=== PATIENT | male | born 1965 | race Caucasian/White ===

== ENCOUNTER 2016-03-23 23:26 | Emergency (ER) | payer OTHER, MEDICAID ==
[2016-03-23] MEDS ORDERED: LORazepam 2 MG/ML INJ IVP ONE (23:57)
[2016-03-24] MEDS ORDERED: chlordiazePOXIDE 25 MG CAP PO ONE (00:38)
--- NOTE | 2016-03-24 00:38 | EDPHY ---
H & P Stated Complaint: UNABLE TO AMBULATE FROM [facility] Time Seen by Provider: 03/23/16 23:35 HPI/ROS: HPI The patient presents with concern for alcohol withdrawal from the [facility]. The patient was seen at [facility] Emergency room earlier today and was transferred to the [facility] for alcohol detox. When he arrived at the [facility], he was having difficulty with ambulation and he is transferred here for further care by EMS he says that he feels tremulous currently, though is not confused or anxious. His last drink was about 24 hours ago, 1 pt of hard alcohol. He has multiple visits for alcohol and benzodiazepine withdrawal here including seizures.. REVIEW OF SYSTEMS Constitutional: No fever, no chills. Eyes: No discharge. ENT: No sore throat. Cardiovascular: No chest pain, no palpitations. Respiratory: No cough, no shortness of breath. Gastrointestinal: No abdominal pain, no vomiting. Genitourinary: No hematuria. Musculoskeletal: No back pain. Skin: No rashes. Neurological: No headache. PMHx: Alcohol abuse, benzodiazepine abuse Soc Hx: Marginally housed PHYSICAL General Appearance: Alert, no distress Eyes: Pupils equal and round no pallor or injection ENT, Mouth: Mucous membranes moist Respiratory: There are no retractions, lungs are clear to auscultation Cardiovascular: Tachycardic with regular rhythm Gastrointestinal: Abdomen is soft and non-tender, no masses, bowel sounds normal Neurological: A&O, moves all extremities, hand tremor and tongue lag present Skin: Warm and dry, no rashes Musculoskeletal: Neck is supple non tender Extremities: symmetrical, full range of motion Psychiatric: Patient is oriented X 3, there is no agitation Source: Patient, EMS - Personal History Current Tetanus Diphtheria and Acellular Pertussis (TDAP): Yes Tetanus Vaccine Date: 2010 - Medical/Surgical History Hx Asthma: No Hx Chronic Respiratory Disease: No Hx Diabetes: No Hx Cardiac Disease: No Hx Renal Disease: No Hx Cirrhosis: No Hx Alcoholism: No Hx HIV/AIDS: No Hx Splenectomy or Spleen Trauma: No Other PMH: PMH: htn, depression/anxiety,chronic back pain. [id number], rolanda,left knee,gastric bypass - Social History Smoking Status: Current every day smoker Constitutional: Initial Vital Signs Temperature (C) 36.7 C 03/23/16 23:32 Heart Rate 118 H 03/23/16 23:32 Respiratory Rate 18 03/23/16 23:32 Blood Pressure 169/96 H 03/23/16 23:32 O2 Sat (%) 92 03/23/16 23:32 O2 Delivery Mode Room Air Allergies/Adverse Reactions: gabapentin Allergy (Verified 03/23/16 23:31) bee stings Allergy (Severe, Uncoded 03/23/16 23:31) Anaphylaxis Home Medications: Medication Instructions Recorded Acetaminophen [Tylenol 325mg (*)] 325 mg PO DAILY PRN 01/25/16 Prazosin HCl [Minipress 1mg (*)] 2 mg PO HS #30 cap 01/28/16 QUEtiapine FUMARATE [Seroquel 50 50 mg PO HS #30 tab 01/28/16 mg (*)] Venlafaxine Xr [Effexor Xr 75MG 75 mg PO DAILY #30 cap 01/28/16 (*)] clonazePAM [klonoPIN (*)] 1 mg PO TID #90 tab 01/28/16 morphINE IR [morphINE IR 30 mg (*)] 30 mg PO TID PRN #60 tab 01/28/16 Albuterol 03/23/16 Lisinopril 03/23/16 Medical Decision Making ED Course/Re-evaluation: 5:30 a.m.- The patient has received several doses of Ativan while in the emergency room for tremor in tachycardia. His symptoms have now mostly resolved and he is feeling better. He has been able to walk to the bathroom without much difficulty. His heart rate is now about 100. He will be [facility] with [facility] Librium. Differential Diagnosis: This is a 50-year-old male, well known to this emergency room with chronic alcohol abuse and benzodiazepine abuse with history of alcohol withdrawal seizures who presents from the [facility] with ataxia, likely related to benzodiazepine or alcohol use. On exam here, he appears to be in alcohol withdrawal, he is mildly tachycardic with a hand tremor. Differential diagnosis includes alcohol withdrawal, benzodiazepine withdrawal, alcohol intoxication. Plan to monitor here, administer IV fluids and benzodiazepines as needed for presumed alcohol withdrawal. - Data Points Laboratory Results: Laboratory Results 03/24/16 00:00 03/24/16 00:00 03/24/16 00:00 WBC 9.03 10^3/uL (3.80-9.50) RBC 5.22 10^6/uL (4.40-6.38) Hgb 14.3 g/dL (13.7-17.5) Hct 43.4 % (40.0-51.0) MCV 83.1 fL (81.5-99.8) MCH 27.4 L pg (27.9-34.1) MCHC 32.9 g/dL (32.4-36.7) RDW 16.4 H % (11.5-15.2) Plt Count 123 L 10^3/uL (150-400) MPV 11.1 fL (8.7-11.7) Neut % (Auto) 84.7 H % (39.3-74.2) Lymph % (Auto) 8.4 L % (15.0-45.0) [place] % (Auto) 6.6 % (4.5-13.0) Eos % (Auto) 0.0 L % (0.6-7.6) Baso % (Auto) 0.2 L % (0.3-1.7) Nucleat RBC Rel Count 0.0 % (0.0-0.2) Absolute Neuts (auto) 7.64 H 10^3/uL (1.70-6.50) Absolute Lymphs (auto) 0.76 L 10^3/uL (1.00-3.00) Absolute Monos (auto) 0.60 10^3/uL (0.30-0.80) Absolute Eos (auto) 0.00 L 10^3/uL (0.03-0.40) Absolute Basos (auto) 0.02 10^3/uL (0.02-0.10) Absolute Nucleated RBC 0.00 10^3/uL (0-0.01) Immature Gran % 0.1 % (0.0-1.1) Immature Gran # 0.01 10^3/uL (0.00-0.10) Sodium 136 mEq/L (134-144) Potassium 4.6 mEq/L (3.5-5.2) Chloride 102 mEq/L (97-110) Carbon Dioxide 17 L mEq/l (22-31) Anion Gap 17 H mEq/L (8-16) BUN 29 H mg/dL (7-23) Creatinine 0.8 mg/dL (0.7-1.3) Estimated GFR > 60 Glucose 110 H mg/dL (70-100) Calcium 8.3 L mg/dL (8.5-10.4) Total Bilirubin 2.4 H mg/dL (0.1-1.4) Conjugated Bilirubin 0.7 H mg/dL (0.0-0.5) Unconjugated Bilirubin 1.7 H mg/dL (0.0-1.1) AST 72 H IU/L (17-59) ALT 50 IU/L (21-72) Alkaline Phosphatase 111 IU/L (38-126) Total Protein 6.6 g/dL (6.3-8.2) Albumin 3.9 g/dL (3.5-5.0) Lipase 137.0 IU/L (23-300) Medications Given: Discontinued Medications Acetaminophen (Tylenol) 650 mg PO EDNOW ONE Stop: 03/24/16 04:04 Last Admin: 03/24/16 04:29 Dose: 650 mg Chlordiazepoxide HCl (Librium) 25 mg PO EDNOW ONE Stop: 03/24/16 00:39 Last Admin: 03/24/16 00:41 Dose: Not Given Folic Acid (Folic Acid) 1 mg PO EDNOW ONE Stop: 03/24/16 02:11 Last Admin: 03/24/16 02:19 Dose: 1 mg Lorazepam (Ativan Injection) 1 mg IVP EDNOW ONE Stop: 03/23/16 23:58 Last Admin: 03/24/16 00:09 Dose: 1 mg Lorazepam (Ativan Injection) 1 mg IVP EDNOW ONE Stop: 03/24/16 00:42 Last Admin: 03/24/16 00:45 Dose: 1 mg Lorazepam (Ativan Injection) 1 mg IVP EDNOW ONE Stop: 03/24/16 01:20 Last Admin: 03/24/16 01:27 Dose: 1 mg Lorazepam (Ativan Injection) 1 mg IVP ONCE ONE Stop: 03/24/16 04:04 Last Admin: 03/24/16 04:29 Dose: 1 mg Lorazepam (Ativan Injection) 1 mg IVP EDNOW ONE Stop: 03/24/16 05:15 Last Admin: 03/24/16 05:33 Dose: 1 mg Ondansetron HCl (Zofran) 4 mg IVP EDNOW ONE Stop: 03/24/16 03:54 Last Admin: 03/24/16 03:56 Dose: 4 mg Thiamine HCl (Vitamin B-1) 100 mg PO EDNOW ONE Stop: 03/24/16 02:11 Last Admin: 03/24/16 02:19 Dose: 100 mg Departure - Departure Disposition: Home, Routine, Self-Care Clinical Impression: Alcohol dependence, Alcohol withdrawal syndrome Condition: Good Instructions: Alcohol Withdrawal (ED) Referrals: [facility] 24 Hours [Outside] - As per Instructions
[2016-03-24] MEDS ORDERED: LORazepam 2 MG/ML INJ IVP ONE ×4 (00:41→05:14)
[2016-03-24 01:28] LABS: % IMMATURE GRANULYOCYTES 0.1 % (0.0-1.1); ABSOLUTE IMMATURE GRANULOCYTES 0.01 10^3/uL (0.00-0.10); ADD DIFF? NO; ADD MORPH? NO; ADD SCAN? NO; ATYPICAL LYMPHOCYTE FLAG 0 (0-99); FRAGMENT RBC FLAG 0 (0-99); HEMATOCRIT 43.4 % (40.0-51.0); HEMOGLOBIN 14.3 g/dL (13.7-17.5); LEFT SHIFT FLG 20 (0-99); LIPEMIA HEMOLYSIS FLAG 80 (0-99); MEAN CELL HEMOGLOBIN 27.4 pg (27.9-34.1); MEAN CELL HEMOGLOBIN CONCENTR. 32.9 g/dL (32.4-36.7); MEAN CELL VOLUME 83.1 fL (81.5-99.8); MEAN PLATELET VOLUME 11.1 fL (8.7-11.7); PLATELET CLUMPS FLAG 20 (0-99); PLATELET COUNT 123 10^3/uL (150-400); RED BLOOD CELL COUNT 5.22 10^6/uL (4.40-6.38); RED CELL DISTRIBUTION WIDTH 16.4 % (11.5-15.2)
[2016-03-24 01:34] LABS: ALANINE AMINOTRANSFERASE 50 IU/L (21-72); ALBUMIN 3.9 g/dL (3.5-5.0); ALKALINE PHOSPHATASE 111 IU/L (38-126); ANION GAP 17 mEq/L (8-16); ASPARTATE AMINOTRANSFERASE 72 IU/L (17-59); BILIRUBIN,TOTAL 2.4 mg/dL (0.1-1.4); CALCIUM 8.3 mg/dL (8.5-10.4); CARBON DIOXIDE 17 mEq/l (22-31); CHLORIDE 102 mEq/L (97-110); CREATININE 0.8 mg/dL (0.7-1.3); GLOMERULAR FILTRATION RATE > 60; GLUCOSE 110 mg/dL (70-100); POTASSIUM 4.6 mEq/L (3.5-5.2); SODIUM 136 mEq/L (134-144); TOTAL PROTEIN 6.6 g/dL (6.3-8.2)
[2016-03-24 01:57] LABS: BILIRUBIN-CONJUGATED 0.7 mg/dL (0.0-0.5); BILIRUBIN-UNCONJUGATED 1.7 mg/dL (0.0-1.1)
[2016-03-24 02:10] VITALS: RESP 18; O2SAT 92
[2016-03-24] MEDS ORDERED: THIAMINE HCL 100 MG TAB PO ONE (02:10)
[2016-03-24] MEDS ORDERED: FOLIC ACID 1 MG TAB PO ONE (02:10)
[2016-03-24] MEDS ORDERED: D5W 1/2 NS 1,000 ML IV SCH (02:15)
[2016-03-24] MEDS ORDERED: ONDANSETRON 4 MG/2 ML VIAL IVP ONE (03:53)
[2016-03-24] MEDS ORDERED: ONDANSETRON 4 MG/2 ML VIAL ONE (03:54)
[2016-03-24] MEDS ORDERED: ACETAMINOPHEN 325 MG TAB PO ONE (04:03)
[2016-03-24] MEDS ORDERED: CHLORDIAZEPOXIDE 25MG PREPK#6 BTL TAKEHOME ONE (05:48)
[2016-03-24 06:02] VITALS: BP 130/70; PULSE 102; TEMP 98.2
== END 2016-03-24 06:04 | disposition home or self-care (01) ==
LOC: EDUNIT#
DX: F10.239 Alcohol dependence with withdrawal, unspecified (principal); I10 Essential (primary) hypertension; F17.200 Nicotine dependence, unspecified, uncomplicated
CPT/HCPCS: 96365; 96375; 96376; 99284; J2405

== ENCOUNTER 2016-03-25 23:52 | Emergency (ER) | payer OTHER, MEDICAID ==
[2016-03-25 23:59] VITALS: RESP 18; O2SAT 95
[2016-03-26] MEDS ORDERED: NS 1,000 ML IV ONE (00:05)
[2016-03-26] MEDS ORDERED: LORazepam 2 MG/ML INJ IVP ONE (00:05)
--- NOTE | 2016-03-26 00:27 | EDPHY ---
H & P Time Seen by Provider: 03/25/16 23:59 HPI/ROS: HPI M1 hold with police. 50-year-old male with [place] police. This patient was at a hotel. He called police from his hotel and told them he was suicidal and was going to jump into the [place]. He reported to police that he was depressed because he was homeless. On transport here police said that he stated he was no longer suicidal. He denies suicidal ideations in the emergency department. He is asking for help with detox. He reports his last drink was at 7:00 p.m.. He was just at the [facility] after being seen in our emergency department on March 23. ROS: Constitutional: No fever, no chills. No weakness. Eyes: No discharge. No changes in vision. ENT: No sore throat. No nasal congestion or rhinorrhea. Respiratory: No cough. No shortness of breath. Cardiac: No chest pain, no palpitations. Gastrointestinal: No abdominal pain, no vomiting, no diarrhea. Genitourinary: No hematuria. No dysuria or increased frequency with urination. Musculoskeletal: No back pain. No neck pain. No myalgias or arthralgias. Skin: No rashes. Neurological: No headache. No focal weakness or altered sensation. Past medical history: Alcohol abuse, benzodiazepine abuse, depression/anxiety, hypertension, gastric bypass, L2 through S1 fusion surgery, chronic back pain. Social history: Alcohol abuse, benzodiazepine abuse. Homeless. As above. Physical Exam: General Appearance: Alert, mildly anxious. This patient is responding to questions appropriately and in full sentences. This patient appears well- hydrated and well-nourished. Eyes: Pupils equal and round no pallor or injection. No lid edema, erythema or injection. Respiratory: There are no retractions, lungs are clear to auscultation with good air movement bilaterally. Cardiovascular: Regular rate and rhythm. No murmur. Gastrointestinal: Abdomen is soft and nontender, no masses, bowel sounds normal. No focal tenderness at McBurney's point. No Pierre sign. Neurological: Motor sensory function is grossly intact. Cranial nerves are normal. Gait is normal. Mild resting tremor. Skin: Warm and dry, no rashes. Musculoskeletal: Neck is supple and nontender. Extremities are symmetrical. All joints range without pain or impingement. Psychiatric: No agitation. No depression. Database: EKG: Imaging: Procedures: Emergency department course: I saw this patient at 12:25 a.m., the patient is clinically sober and fit for behavioral health feel evaluation. He tells me at this time he is not suicidal and is asking for help with detox. EPS is agreed to see this patient now. If appropriate, the plan will be to transfer him by taxi to the [facility] with Librium for detox. Patient given 100 mg of oral Librium for alcohol versus benzodiazepine withdrawal. 1:15 a.m., the patient was seen and evaluated by [facility]. I lifted his mental health hold at this time. He is not suicidal. They have provided him with resources and contacted [facility] for follow-up lunch he is released with detox. Plan will be to arrange for him to be admitted to [facility] through [facility] after detox. Patient is in agreement to go to the [facility]. He will be sent to the [facility] with Librium per protocol. Return to emergency department precautions were reviewed with him. All of his questions were answered. He was discharged to the [facility] in good condition by taxi. Differential Diagnosis: The differential diagnosis on this patient includes but is not limited to situational depression, suicidal ideation, alcohol abuse, benzodiazepine abuse, alcohol withdrawal, benzodiazepine withdrawal. This represents a partial list of diagnoses considered. These considerations are based on history, physical exam, past history, reassessment and diagnostic testing. Smoking Status: Current every day smoker Constitutional: Initial Vital Signs Temperature (C) 36.2 C 03/25/16 23:56 Heart Rate 111 H 03/25/16 23:56 Respiratory Rate 18 03/25/16 23:56 Blood Pressure 123/82 H 03/25/16 23:56 O2 Sat (%) 95 03/25/16 23:56 O2 Delivery Mode Room Air Allergies/Adverse Reactions: gabapentin Allergy (Verified 03/23/16 23:31) bee stings Allergy (Severe, Uncoded 03/23/16 23:31) Anaphylaxis Home Medications: Medication Instructions Recorded Acetaminophen [Tylenol 325mg (*)] 325 mg PO DAILY PRN 01/25/16 Prazosin HCl [Minipress 1mg (*)] 2 mg PO HS #30 cap 01/28/16 QUEtiapine FUMARATE [Seroquel 50 50 mg PO HS #30 tab 01/28/16 mg (*)] clonazePAM [klonoPIN (*)] 1 mg PO TID #90 tab 01/28/16 morphINE IR [morphINE IR 30 mg (*)] 30 mg PO TID PRN #60 tab 01/28/16 Albuterol 03/23/16 Lisinopril 03/23/16 Medical Decision Making - Data Points Laboratory Results: 03/26/16 00:30 Urine Opiates Screen NEGATIVE (NEGATIVE) Urine Barbiturates NEGATIVE (NEGATIVE) Ur Phencyclidine Scrn NEGATIVE (NEGATIVE) Ur Amphetamine Screen NEGATIVE (NEGATIVE) U Benzodiazepines Scrn NON-NEGATIVE H (NEGATIVE) Urine Cocaine Screen NEGATIVE (NEGATIVE) U Marijuana (THC) Screen NEGATIVE (NEGATIVE) Medications Given: Discontinued Medications Chlordiazepoxide HCl (Librium) 100 mg PO EDNOW ONE Stop: 03/26/16 00:41 Last Admin: 03/26/16 00:43 Dose: 100 mg Sodium Chloride (Ns) 1,000 mls @ 0 mls/hr IV ONCE ONE PRN Reason: Wide Open Stop: 03/26/16 00:06 Last Admin: 03/26/16 01:04 Dose: Not Given Lorazepam (Ativan Injection) 2 mg IVP EDNOW ONE Stop: 03/26/16 00:06 Last Admin: 03/26/16 01:04 Dose: Not Given Departure - Departure Disposition: Home, Routine, Self-Care Clinical Impression: Situational depression, Alcohol abuse Condition: Good Instructions: Abuse of Alcohol (ED) Additional Instructions: Read and follow provided instructions. Follow-up with [facility] as discussed by Behavioral Health here in the emergency department for further evaluation and admission to [facility]. Librium to be administered for alcohol withdrawal symptoms by the [facility] staff. Return to the emergency department for worsening symptoms, suicidal thoughts or other serious concerns. Referrals: [facility] Detox 24 Hours [Outside] - As per Instructions
[2016-03-26] MEDS ORDERED: chlordiazePOXIDE 25 MG CAP ONE (00:38)
[2016-03-26] MEDS ORDERED: chlordiazePOXIDE 25 MG CAP PO ONE (00:40)
[2016-03-26] MEDS ORDERED: CHLORDIAZEPOXIDE 25MG PREPK#6 BTL TAKEHOME ONE (01:15)
[2016-03-26 01:32] VITALS: BP 128/76; PULSE 107; TEMP 97.9
== END 2016-03-26 01:40 | disposition home or self-care (01) ==
LOC: EEVIPCON 23:52
DX: F43.21 Adjustment disorder with depressed mood (principal); F10.10 Alcohol abuse, uncomplicated; I10 Essential (primary) hypertension; F17.200 Nicotine dependence, unspecified, uncomplicated
CPT/HCPCS: 80305

== ENCOUNTER 2016-03-26 21:57 | Emergency (ER) | payer OTHER, MEDICAID ==
[2016-03-26] MEDS ORDERED: ONDANSETRON 4 MG/2 ML VIAL IVP ONE (22:20)
[2016-03-26] MEDS ORDERED: HYDROmorphONE/DILAUDID 1 MG/ML SYR IVP ONE ×2 (22:20→23:59)
[2016-03-26] MEDS ORDERED: NS 1,000 ML IV ONE (22:20)
--- NOTE | 2016-03-26 22:25 | EDPHY ---
H & P Time Seen by Provider: 03/26/16 22:07 HPI/ROS: CHIEF COMPLAINT: Abdominal pain HISTORY OF PRESENT ILLNESS: The patient is a 50-year-old man who comes to the emergency department complaining of epigastric pain that has been increasing intermittently over the last week and is not constant. He has had nonbloody vomit as well. His last vomit episode was earlier today. He had 1 episode of dark diarrhea 2 days ago but has had normal stool since then. He has been afebrile. He has a history of gastric bypass in 1999 as well as a cholecystectomy in 1994. He also has chronic back pain and has been seen here multiple times for psychiatric reasons and alcoholism. REVIEW OF SYSTEMS: Constitutional: denies: chills, fever, recent illness, recent injury EENTM: denies: blurred vision, double vision, nose congestion Respiratory: denies: cough, shortness of breath Cardiac: denies: chest pain, irregular heart rate, lightheadedness, palpitations Gastrointestinal/Abdominal: Epigastric pain Genitourinary: denies: dysuria, frequency, hematuria, pain Musculoskeletal: denies: joint pain, muscle pain Skin: denies: lesions, rash, jaundice, bruising Neurological: denies: headache, numbness, paresthesia, tingling, dizziness, weakness Hematologic/Lymphatic: denies: blood clots, easy bleeding, easy bruising Immunologic/allergic: denies: HIV/AIDS, transplant EXAM: GENERAL: Well-appearing, well-nourished and in no acute distress. HEAD: Atraumatic, normocephalic. EYES: Pupils equal round and reactive to light, extraocular movements intact, sclera anicteric, conjunctiva are normal. ENT: TMs normal, nares patent, oropharynx clear without exudates. Moist mucous membranes. NECK: Normal range of motion, supple without lymphadenopathy or JVD. LUNGS: Breath sounds clear to auscultation bilaterally and equal. No wheezes rales or rhonchi. HEART: Regular rate and rhythm without murmurs, rubs or gallops. ABDOMEN: Mild diffuse tenderness. The patient states that his primarily in epigastric. The rectal exam completed and nonbloody appearing. BACK: No CVA tenderness, no spinal tenderness, step-offs or deformities EXTREMITIES: Normal range of motion, no pitting or edema. No clubbing or cyanosis. NEUROLOGICAL: Cranial nerves II through XII grossly intact. Normal speech, normal gait. 5/5 strength, normal movement in all extremities, normal sensation PSYCH: Normal mood, normal affect. SKIN: Warm, dry, normal turgor, no visible rashes or lesions. Source: Patient Exam Limitations: No limitations - Personal History Tetanus Vaccine Date: 2010 - Medical/Surgical History Hx Asthma: No Hx Chronic Respiratory Disease: No Hx Diabetes: No Hx Cardiac Disease: No Hx Renal Disease: No Hx Cirrhosis: No Hx Alcoholism: No Hx HIV/AIDS: No Hx Splenectomy or Spleen Trauma: No Other PMH: PMH: htn, depression/anxiety,chronic back pain. [id number]-fusion, rolanda,left knee,gastric bypass - Family History Significant Family History: No pertinent family hx - Social History Smoking Status: Current every day smoker Alcohol Use: Sober Drug Use: None Constitutional: Initial Vital Signs Temperature (C) 36.5 C 03/26/16 23:08 Heart Rate 98 03/26/16 23:08 Respiratory Rate 16 03/26/16 23:08 Blood Pressure 127/89 H 03/26/16 23:08 O2 Sat (%) 100 03/26/16 23:08 O2 Delivery Mode Nasal Cannula O2 (L/minute) 2 Allergies/Adverse Reactions: gabapentin Allergy (Verified 03/26/16 23:07) bee stings Allergy (Severe, Uncoded 03/23/16 23:31) Anaphylaxis Home Medications: Medication Instructions Recorded Lisinopril 03/23/16 Oxycodone HCl 03/26/16 Medical Decision Making - Diagnostics EKG Interpretation: An EKG obtained and was read and documented in trace view. Please see trace view for full reading and report., no significant change from previous Imaging: Results: CT scan of the abdomen and pelvis was obtained. The results of the study are small live a small-bowel some mildly dilated that could be normal postoperative changes versus early ileus. No edema or perforation or stranding. The study was read by Dr. Zaragoza. I viewed the images myself on the PACS system. ED Course/Re-evaluation: 12:05 a.m. the patient feels much better. His abdominal exam is benign. he is asking for pain medication for his chronic back pain. Also he is starting to have mild tremors. I will treat him with Ativan. Will [facility] as he requests. He declines further workup or treatment. Differential Diagnosis: Partial list of the Differential diagnosis considered include but were not limited to; abdominal pain, pancreatitis, peptic, gastritis, ileus, withdrawal , anxiety and although unlikely based on the history and physical exam, I also considered perforation, ischemia, obstruction. I discussed these differential diagnoses and the plan with the patient as well as the usual and expected course. The patient understands that the diagnosis is provisional and that in medicine we are not always correct and that further workup is often warranted. Usual and customary warnings were given. All of the patient's questions were answered. The patient was instructed to return to the emergency department should the symptoms at all worsen or return, otherwise to followup with the physician as we discussed. - Data Points Laboratory Results: Laboratory Results 03/26/16 22:45 03/26/16 22:00 Medications Given: Discontinued Medications Chlordiazepoxide (Librium 25 Mg Prepack#6) 1 btl TAKEHOME EDNOW ONE Stop: 03/27/16 00:01 Last Admin: 03/27/16 01:07 Dose: 1 btl Hydromorphone HCl (Dilaudid) 1 mg IVP EDNOW ONE Stop: 03/26/16 22:21 Last Admin: 03/26/16 22:45 Dose: 1 mg Hydromorphone HCl (Dilaudid) 1 mg IVP EDNOW ONE Stop: 03/27/16 00:00 Last Admin: 03/27/16 00:41 Dose: 1 mg Sodium Chloride (Ns) 1,000 mls @ 0 mls/hr IV ONCE ONE PRN Reason: Wide Open Stop: 03/26/16 22:21 Last Admin: 03/26/16 22:45 Dose: 1,000 mls Lorazepam (Ativan Injection) 1 mg IVP EDNOW ONE Stop: 03/27/16 00:00 Last Admin: 03/27/16 00:41 Dose: 1 mg Ondansetron HCl (Zofran) 4 mg IVP EDNOW ONE Stop: 03/26/16 22:21 Last Admin: 03/26/16 22:45 Dose: 4 mg Ondansetron HCl (Zofran) 4 mg IVP EDNOW ONE Stop: 03/27/16 00:42 Last Admin: 03/27/16 00:41 Dose: 4 mg Departure - Departure Disposition: Home, Routine, Self-Care Clinical Impression: Abdominal pain Qualifiers: Abdominal location: epigastric Qualified Code(s): R10.13 - Epigastric pain Alcohol withdrawal Qualifiers: Complication of substance-induced condition: uncomplicated Qualified Code(s): F10.230 - Alcohol dependence with withdrawal, uncomplicated Condition: Fair Instructions: Alcohol Withdrawal (ED), Acute Abdominal Pain (ED) Referrals: NONE *PRIMARY CARE P,. [Primary Care Provider] - As per Instructions
[2016-03-26 22:36] LABS: ALANINE AMINOTRANSFERASE 51 IU/L (21-72); ALBUMIN 3.9 g/dL (3.5-5.0); ALKALINE PHOSPHATASE 123 IU/L (38-126); ANION GAP 8 mEq/L (8-16); ASPARTATE AMINOTRANSFERASE 47 IU/L (17-59); BILIRUBIN,TOTAL 1.2 mg/dL (0.1-1.4); BILIRUBIN-CONJUGATED 0.5 mg/dL (0.0-0.5); BILIRUBIN-UNCONJUGATED 0.7 mg/dL (0.0-1.1); CALCIUM 9.1 mg/dL (8.5-10.4); CARBON DIOXIDE 26 mEq/l (22-31); CHLORIDE 101 mEq/L (97-110); CREATININE 0.7 mg/dL (0.7-1.3); GLOMERULAR FILTRATION RATE > 60; GLUCOSE 89 mg/dL (70-100); POTASSIUM 3.9 mEq/L (3.5-5.2); SODIUM 135 mEq/L (134-144); TOTAL PROTEIN 6.8 g/dL (6.3-8.2)
--- NOTE | 2016-03-26 22:48 | CPEKG ---
Heart Rate: 85 RR Interval: 706 P-R Interval: 144 QRSD Interval: 76 QT Interval: 356 QTC Interval: 424 P [place]: 44 QRS [place]: 49 T Wave [place]: 72 EKG Severity - NORMAL ECG - EKG Impression: SINUS RHYTHM Electronically Signed By: Fredy Cedillo 26-Mar-2016 22:52:02
[2016-03-26 23:05] LABS: % IMMATURE GRANULYOCYTES 0.2 % (0.0-1.1); ABSOLUTE IMMATURE GRANULOCYTES 0.01 10^3/uL (0.00-0.10); ADD DIFF? NO; ADD MORPH? NO; ADD SCAN? NO; ATYPICAL LYMPHOCYTE FLAG 20 (0-99); FRAGMENT RBC FLAG 0 (0-99); HEMATOCRIT 37.1 % (40.0-51.0); HEMOGLOBIN 12.1 g/dL (13.7-17.5); LEFT SHIFT FLG 10 (0-99); LIPEMIA HEMOLYSIS FLAG 80 (0-99); MEAN CELL HEMOGLOBIN 27.3 pg (27.9-34.1); MEAN CELL HEMOGLOBIN CONCENTR. 32.6 g/dL (32.4-36.7); MEAN CELL VOLUME 83.6 fL (81.5-99.8); MEAN PLATELET VOLUME 11.9 fL (8.7-11.7); PLATELET CLUMPS FLAG 0 (0-99); PLATELET COUNT 65 10^3/uL (150-400); RED BLOOD CELL COUNT 4.44 10^6/uL (4.40-6.38); RED CELL DISTRIBUTION WIDTH 16.4 % (11.5-15.2)
[2016-03-26 23:10] VITALS: RESP 16; TEMP 97.7
[2016-03-26 23:12] LABS: PROTIME(PATIENT) 13.1 SEC (12.0-15.0)
[2016-03-26 23:13] LABS: APTT 26.6 SEC (23.0-38.0)
[2016-03-26] MEDS ORDERED: IOPAMIDOL (ISOVUE-300) 100 ML BTL IV ONE (23:28)
[2016-03-26] MEDS ORDERED: LORazepam 2 MG/ML INJ IVP ONE (23:59)
[2016-03-27] MEDS ORDERED: CHLORDIAZEPOXIDE 25MG PREPK#6 BTL TAKEHOME ONE
[2016-03-27] MEDS ORDERED: ONDANSETRON 4 MG/2 ML VIAL ONE (00:35)
[2016-03-27] MEDS ORDERED: ONDANSETRON 4 MG/2 ML VIAL IVP ONE (00:41)
[2016-03-27 00:44] VITALS: BP 126/92; PULSE 90; O2SAT 94
== END 2016-03-27 04:00 | disposition home or self-care (01) ==
LOC: EDUNIT#
DX: R10.13 Epigastric pain (principal); F10.230 Alcohol dependence with withdrawal, uncomplicated; I10 Essential (primary) hypertension; F17.200 Nicotine dependence, unspecified, uncomplicated
CPT/HCPCS: 96361; 96374; 96375; 96376; 99285; J1170; J2405; Q9967

== ENCOUNTER 2016-05-01 08:38 | Emergency (ER) | payer OTHER, MEDICAID ==
[2016-05-01] MEDS ORDERED: ONDANSETRON DISINTEGRATING 4 MG TAB ONE (08:53)
[2016-05-01] MEDS ORDERED: ONDANSETRON DISINTEGRATING 4 MG TAB PO ONE (08:55)
--- NOTE | 2016-05-01 09:06 | EDPHY ---
H & P Time Seen by Provider: 05/01/16 08:53 HPI/ROS: Chief complaint. Back pain, vomiting and diarrhea HPI. 51-year-old male complains diarrhea off and on for 1 month. Vomiting this morning. Also chronic back pain with fusion L2-S1. No recent trauma to his back but he says he has a compression fracture at L1 on a recent MRI. He has had no travel, bad food, antibiotics. He lives at the homeless custodial. Some crampy low abdominal pain. Again vomiting this morning. ROS Constitutional. no fever/chills, no weakness Eyes. no problems with vision ENT. no sore throat, no nasal drainage Cardiovascular. no chest pain Respiratory. no shortness of breath, no cough Abdominal. Crampy low abdominal pain with nausea vomiting and diarrhea . no problems urinating MS. Chronic low back pain Skin. no rash Lymph. no swollen glands Neuro. no headache, no dizziness, no difficulty walking or with speech Past Medical/Surgical History: Past medical history significant for hypertension, depression, chronic back pain , previous back surgery, cholecystectomy, gastric bypass Social History: Homeless, daily smoker, denies recent alcohol Smoking Status: Current every day smoker Physical Exam: General Appearance: Alert well-developed male mild distress vital signs significant for initial heart rate 101 Eyes: Pupils equal and round no pallor or injection. ENT, Mouth: Mucous membranes are moist. Respiratory: There are no retractions, lungs are clear to auscultation. Cardiovascular: Regular rate and rhythm. Gastrointestinal: Abdomen is soft with mild tenderness in the low abdomen. No masses. Slightly increased bowel sounds Neurological: Awake and alert, sensory and motor exams grossly normal. Skin: Warm and dry, no rashes. Musculoskeletal: Neck is supple nontender. Extremities symmetrical, full range of motion. Psychiatric: Patient is oriented X 3, there is no agitation. Constitutional: Initial Vital Signs Temperature (C) 36.8 C 05/01/16 08:39 Heart Rate 101 H 05/01/16 08:39 Respiratory Rate 18 05/01/16 08:39 Blood Pressure 145/93 H 05/01/16 08:39 O2 Sat (%) 97 05/01/16 08:39 O2 Delivery Mode Room Air Allergies/Adverse Reactions: gabapentin Allergy (Verified 05/01/16 08:39) bee stings Allergy (Severe, Uncoded 03/23/16 23:31) Anaphylaxis Home Medications: Medication Instructions Recorded Lisinopril 03/23/16 Hydrocodone/APAP 5/325 [[place] 1 each PO Q4-6PRN PRN #8 tab 05/01/16 5/325 (*)] Medical Decision Making Procedures: IV normal saline. Patient is given 1 L. Oral Zofran and hydrocodone ED Course/Re-evaluation: Re-evaluation at 11:30 a.m. a.m.. Patient has been unable to give us a stool sample. He continues to ask for more narcotics. Patient will be given a short course of hydrocodone until can see his regular provider. It is emphasized to the patient no further narcotics from the emergency department for chronic pain. He expresses understanding and agreement Differential Diagnosis: Chronic diarrhea for 3-4 weeks however unable to give us a stool sample. Chronic back pain. No acute findings. I considered C difficile and other infectious etiologies of diarrhea - Data Points Laboratory Results: Laboratory Results 05/01/16 10:00 05/01/16 10:55 05/01/16 05/01/16 10:55 10:00 WBC 6.16 10^3/uL 10^3/uL (3.80-9.50) RBC 5.04 10^6/uL 10^6/uL (4.40-6.38) Hgb 13.1 g/dL L g/dL (13.7-17.5) Hct 41.5 % % (40.0-51.0) MCV 82.3 fL fL (81.5-99.8) MCH 26.0 pg L pg (27.9-34.1) MCHC 31.6 g/dL L g/dL (32.4-36.7) RDW 17.8 % H % (11.5-15.2) Plt Count 232 10^3/uL 10^3/uL (150-400) MPV 10.5 fL fL (8.7-11.7) Neut % (Auto) 82.5 % H % (39.3-74.2) Lymph % (Auto) 11.4 % L % (15.0-45.0) [place] % (Auto) 4.5 % % (4.5-13.0) Eos % (Auto) 1.1 % % (0.6-7.6) Baso % (Auto) 0.3 % % (0.3-1.7) Nucleat RBC Rel Count 0.0 % % (0.0-0.2) Absolute Neuts (auto) 5.08 10^3/uL 10^3/uL (1.70-6.50) Absolute Lymphs (auto) 0.70 10^3/uL L 10^3/uL (1.00-3.00) Absolute Monos (auto) 0.28 10^3/uL L 10^3/uL (0.30-0.80) Absolute Eos (auto) 0.07 10^3/uL 10^3/uL (0.03-0.40) Absolute Basos (auto) 0.02 10^3/uL 10^3/uL (0.02-0.10) Absolute Nucleated RBC 0.00 10^3/uL 10^3/uL (0-0.01) Immature Gran % 0.2 % % (0.0-1.1) Immature Gran # 0.01 10^3/uL 10^3/uL (0.00-0.10) Sodium 140 mEq/L mEq/L (134-144) Potassium 4.1 mEq/L mEq/L (3.5-5.2) Chloride 108 mEq/L mEq/L (97-110) Carbon Dioxide 23 mEq/l mEq/l (22-31) Anion Gap 9 mEq/L mEq/L (8-16) BUN 18 mg/dL mg/dL (7-23) Creatinine 0.6 mg/dL L mg/dL (0.7-1.3) Estimated GFR > 60 Glucose 81 mg/dL mg/dL (70-100) Calcium 8.6 mg/dL mg/dL (8.5-10.4) Medications Given: Discontinued Medications Hydrocodone Bitart/Acetaminophen ([place] 5/325) 1 tab PO EDNOW ONE Stop: 05/01/16 09:10 Last Admin: 05/01/16 09:18 Dose: 1 tab Sodium Chloride (Ns) 1,000 mls @ 0 mls/hr IV ONCE ONE PRN Reason: Wide Open Stop: 05/01/16 09:09 Last Admin: 05/01/16 09:26 Dose: 1,000 mls Ondansetron HCl (Zofran Odt) 4 mg PO EDNOW ONE Stop: 05/01/16 08:56 Last Admin: 05/01/16 09:02 Dose: 4 mg Departure - Departure Disposition: Home, Routine, Self-Care Clinical Impression: Exacerbation of chronic back pain Diarrhea Qualifiers: Diarrhea type: unspecified type Qualified Code(s): R19.7 - Diarrhea, unspecified Condition: Good Instructions: Chronic Diarrhea (ED) Additional Instructions: A drink plenty of fluids and stay hydrated. I will give you a short course of pain medication but I would ask that Urgent Care did emboli bar neck this week. Call today for appointment with either her or other providers. No further narcotics from the emergency department will be provided to you Referrals: Ni Bennett PA [Primary Care Provider] - 2-3 days, call for appt. Prescriptions: Hydrocodone/APAP 5/325 [[place] 5/325 (*)] 1 each PO Q4-6PRN PRN #8 tab PRN Reason: Pain, Moderate
[2016-05-01] MEDS ORDERED: NS 1,000 ML IV ONE (09:08)
[2016-05-01] MEDS ORDERED: HYDROCODONE/APAP 5/325 TAB PO ONE (09:09)
[2016-05-01 10:24] VITALS: TEMP 99.3
[2016-05-01 11:05] LABS: % IMMATURE GRANULYOCYTES 0.2 % (0.0-1.1); ABSOLUTE IMMATURE GRANULOCYTES 0.01 10^3/uL (0.00-0.10); ADD DIFF? NO; ADD MORPH? NO; ADD SCAN? NO; ATYPICAL LYMPHOCYTE FLAG 10 (0-99); FRAGMENT RBC FLAG 0 (0-99); HEMATOCRIT 41.5 % (40.0-51.0); HEMOGLOBIN 13.1 g/dL (13.7-17.5); LEFT SHIFT FLG 10 (0-99); LIPEMIA HEMOLYSIS FLAG 80 (0-99); MEAN CELL HEMOGLOBIN CONCENTR. 31.6 g/dL (32.4-36.7); MEAN CELL VOLUME 82.3 fL (81.5-99.8); MEAN PLATELET VOLUME 10.5 fL (8.7-11.7); PLATELET CLUMPS FLAG 0 (0-99); PLATELET COUNT 232 10^3/uL (150-400); RED BLOOD CELL COUNT 5.04 10^6/uL (4.40-6.38); RED CELL DISTRIBUTION WIDTH 17.8 % (11.5-15.2)
[2016-05-01 11:25] LABS: ANION GAP 9 mEq/L (8-16); CALCIUM 8.6 mg/dL (8.5-10.4); CARBON DIOXIDE 23 mEq/l (22-31); CHLORIDE 108 mEq/L (97-110); CREATININE 0.6 mg/dL (0.7-1.3); GLOMERULAR FILTRATION RATE > 60; GLUCOSE 81 mg/dL (70-100); POTASSIUM 4.1 mEq/L (3.5-5.2); SODIUM 140 mEq/L (134-144)
[2016-05-01 11:46] VITALS: BP 144/82; PULSE 89; RESP 12; O2SAT 97
== END 2016-05-01 11:46 | disposition home or self-care (01) ==
DX: M54.5 Low back pain (principal); G89.29 Other chronic pain; R19.7 Diarrhea, unspecified; I10 Essential (primary) hypertension; F17.200 Nicotine dependence, unspecified, uncomplicated

== ENCOUNTER 2016-06-25 09:10 | Emergency (ER) | payer OTHER, MEDICAID ==
[2016-06-25] MEDS ORDERED: predniSONE 20 MG TAB PO ONE (09:46)
[2016-06-25] MEDS ORDERED: IPRATROPIUM/ALBUTEROL 3 ML DEYVIAL IH ONE (09:46)
--- NOTE | 2016-06-25 11:10 | EDPHY ---
H & P Stated Complaint: 4 days cough cold fever, malase, green mucus from productive cough - Personal History Current Tetanus/Diphtheria Vaccine: Yes Current Tetanus Diphtheria and Acellular Pertussis (TDAP): Yes Tetanus Vaccine Date: 2010 - Medical/Surgical History Hx Asthma: No Hx Chronic Respiratory Disease: No Hx Diabetes: No Hx Cardiac Disease: No Hx Renal Disease: No Hx Cirrhosis: No Hx Alcoholism: Yes Hx HIV/AIDS: No Hx Splenectomy or Spleen Trauma: No Other PMH: PMH: htn, depression/anxiety,chronic back pain. [id number], rolanda,left knee,gastric bypass - Social History Smoking Status: Current every day smoker Time Seen by Provider: 06/25/16 09:29 HPI/ROS: Chief complaint: Cold symptoms History of present illness: 51-year-old male presents to the emergency department for cold symptoms. Patient reports the onset of symptoms over the last 3-4 days. He reports fevers, runny nose, nasal congestion, chest congestion and cough with green sputum. He feels symptoms are worsening. He is concerned that he picked up an infection from the homeless senior care he is staying in. He denies other associated signs or symptoms including no sore throat, no headache or neck pain, no rash. Review of systems: A 10 point review of systems was obtained and other than described above was negative (Bib Everett) - Physical Exam Exam: General Appearance: Alert, nontoxic. Eyes: Pupils equal and round no injection. ENT: Tympanic membranes, external auditory canals, external ears and surrounding soft tissue including over the mastoids are unremarkable. Nasopharynx is not injected. There is no rhinorrhea. Oropharynx is not injected. There is no edema. There is no exudate. There is no asymmetry. The uvula is midline. No elevation of the tongue. There is no hoarseness, no drooling, no trismus, no stridor. Respiratory: Occasional wheezing. No rhonchi or rales. Cardiac: regular rate and rhythm. Gastrointestinal: Abdomen is soft and nontender, no masses, bowel sounds normal. Musculoskeletal: Neck is supple and nontender. Extremities have full range of motion and are nontender. Skin: No rashes or lesions. Neurological: Alert and oriented x4. No meningismus. (Bib Everett) Constitutional: Initial Vital Signs Temperature (C) 36.5 C 06/25/16 09:21 Heart Rate 95 06/25/16 09:21 Respiratory Rate 16 06/25/16 09:21 Blood Pressure 136/92 H 06/25/16 09:21 O2 Sat (%) 94 06/25/16 09:21 O2 Delivery Mode Room Air Allergies/Adverse Reactions: gabapentin Allergy (Verified 05/01/16 08:39) bee stings Allergy (Severe, Uncoded 03/23/16 23:31) Anaphylaxis Home Medications: Medication Instructions Recorded Lisinopril 03/23/16 Hydrocodone/APAP 5/325 [[place] 1 each PO Q4-6PRN PRN #8 tab 05/01/16 5/325 (*)] Advair 100/50 (*) 06/25/16 Amlodipine Besylate/Benazepril 06/25/16 Codeine Phosphate/Guaifenesin 10 ml PO Q6 #120 ml 06/25/16 [Codeine-Guaifen 10-100 mg/5 ml] Doxycycline Hyclate 100 mg PO BID #14 tab 06/25/16 Medical Decision Making - Diagnostics Imaging: I viewed and interpreted images myself ED Course/Re-evaluation: Patient is seen under the supervision of my secondary supervising physician Dr. Kya Blum. Patient presents to the emergency department for evaluation of cold symptoms. He is nontoxic. Vital signs are stable. Chest x-ray shows a mass, CT is recommended for further evaluation. I will symptomatically treat him with bronchitis, I will start him on antibiotics. Symptomatic care is discussed. He does have nebulizers at home. I have discussed a possible mass seen on his x-ray. I have offered to pursue a CT scan today to better characterize it. He has declined, he states he needs to leave. I have discussed with him the importance of very close follow-up with his primary care doctor for continued evaluation and care of this mass. Home care is discussed. Return precautions are given. Patient voiced understanding and agreement with plan. (Bib Everett) Differential Diagnosis: Included but not limited to bronchitis, pneumonia, influenza (Bib Everett) Other Provider: This patient was primarily evaluated and managed by the physician speech language pathologist assistant. I have reviewed the chart and agree with the plan of care. I am the secondary supervising physician. I reviewed the chest xray. (Kya Blum) - Data Points Medications Given: Discontinued Medications Albuterol/Ipratropium (Duoneb) 3 ml IH EDNOW ONE Stop: 06/25/16 09:47 Last Admin: 06/25/16 09:52 Dose: 3 ml Prednisone (Prednisone) 60 mg PO EDNOW ONE Stop: 06/25/16 09:47 Last Admin: 06/25/16 09:52 Dose: 60 mg Departure - Departure Disposition: Home, Routine, Self-Care Clinical Impression: Acute bronchitis Condition: Good Instructions: Acute Bronchitis (ED) Additional Instructions: Follow-up with her primary care doctor for recheck There is a mass seen on your chest x-ray, you need to have this further evaluated, possibly with a CT scan to better understand what it is because it could be a serious or life-threatening condition If symptoms worsen or new symptoms develop return to the emergency room for recheck Referrals: Mandie Howard [Primary Care Provider] - As per Instructions Prescriptions: Codeine Phosphate/Guaifenesin [Codeine-Guaifen 10-100 mg/5 ml] 10 ml PO Q6 #120 ml Doxycycline Hyclate 100 mg PO BID #14 tab
[2016-06-25 11:25] VITALS: BP 172/90; PULSE 98; RESP 20; TEMP 98.6; O2SAT 95
== END 2016-06-25 11:21 | disposition home or self-care (01) ==
DX: J20.9 Acute bronchitis, unspecified (principal); I10 Essential (primary) hypertension; F17.200 Nicotine dependence, unspecified, uncomplicated

== ENCOUNTER 2016-06-26 22:38 | Emergency (ER) | payer OTHER, MEDICAID ==
[2016-06-26 22:51] VITALS: RESP 20
[2016-06-26] MEDS ORDERED: KETOROLAC 15 MG/1 ML SDV IVP ONE (22:59)
--- NOTE | 2016-06-26 22:59 | EDPHY ---
H & P Stated Complaint: SOB, seen yesterday for bronchitis, did not fill RX Time Seen by Provider: 06/26/16 22:43 HPI/ROS: Chief Complaint: Cough, shortness of breath HPI: 51-year-old male who has had 3-4 days upper upper respiratory symptoms with worsening cough and shortness of breath this evening. Patient was seen yesterday emergency department. Had a chest x-ray which showed a mass in his chest as well as bronchitis. Patient elected not have a CT scan at that time. He was discharged with prescriptions for doxycycline is in a cough medicine but he has not been able to afford the prescription and has not started. Today's had worsening shortness of breath. He called EMS. He was given a DuoNeb and 125 mg of Solu-Medrol and is feeling better. Is denies any fevers or chills. Has had a productive cough. He also has generalized pain in his chest from coughing and feeling tight. Has a history of COPD and uses Advair albuterol but does not use a spacer with his MDI. ROS: 10 point Review of Systems is negative except as noted in the HPI. PMH: COPD, hypertension, chronic back pain Medications: Advair, albuterol, lisinopril, amlodipine, oxycodone allergies: Gabapentin Social History: Positive smoking, denies alcohol, no recreational drug use Family History: non-contributory Physical Exam: Gen: Awake, Alert, No Distress HEENT: Nose: no rhinorrhea Eyes: PERRLA, EOMI Mouth: Moist mucosa Neck: Supple, no JVD Chest: nontender, diffuse expiratory wheezing, no focal rales or rhonchi Heart: S1, S2 normal, no murmur Abd: Soft, non-tender, no guarding Back: no CVA tenderness, no midline tenderness Ext: no edema, non-tender Skin: no rash Neuro: CN II-XII intact, Sensation grossly intact, Strength 5/5 in bilateral upper and lower extremities - Personal History Current Tetanus/Diphtheria Vaccine: Yes Current Tetanus Diphtheria and Acellular Pertussis (TDAP): Yes Tetanus Vaccine Date: 2010 - Medical/Surgical History Hx Asthma: No Hx Chronic Respiratory Disease: Yes Hx Diabetes: No Hx Cardiac Disease: No Hx Renal Disease: No Hx Cirrhosis: No Hx Alcoholism: Yes Hx HIV/AIDS: No Hx Splenectomy or Spleen Trauma: No Other PMH: PMH: htn, depression/anxiety,chronic back pain. [id number], rolanda,left knee,gastric bypass, COPD - Social History Smoking Status: Current every day smoker Constitutional: Initial Vital Signs Temperature (C) 36.8 C 06/26/16 22:49 Heart Rate 107 H 06/26/16 22:49 Respiratory Rate 20 06/26/16 22:49 Blood Pressure 125/90 H 06/26/16 22:49 O2 Sat (%) 94 06/26/16 22:49 O2 Delivery Mode Room Air Allergies/Adverse Reactions: gabapentin Allergy (Verified 06/26/16 22:49) bee stings Allergy (Severe, Uncoded 03/23/16 23:31) Anaphylaxis Home Medications: Medication Instructions Recorded Lisinopril 03/23/16 Hydrocodone/APAP 5/325 [[place] 1 each PO Q4-6PRN PRN #8 tab 05/01/16 5/325 (*)] Advair 100/50 (*) 06/25/16 Amlodipine Besylate/Benazepril 06/25/16 Codeine Phosphate/Guaifenesin 10 ml PO Q6 #120 ml 06/25/16 [Codeine-Guaifen 10-100 mg/5 ml] Doxycycline Hyclate 100 mg PO BID #14 tab 06/25/16 Amoxicillin/Clavulanate Pot 875 mg PO BID #28 tab 06/27/16 [Augmentin 875 MG TAB (*)] predniSONE 60 mg PO DAILY #9 tab 06/27/16 Medical Decision Making - Diagnostics Imaging Results: Imaging Impressions Chest CT 06/26/16 22:55 Impression: 1. Pleural-based mass of 2.3 x 2.7 cm in the right middle lobe. It has differential density, and a cavity or an abscess is not excluded. Neoplasm is the other differential. 2. This nodule is surrounded by inflammatory changes such as diffuse bronchiectasis, upper lobe predominant septal thickening, and diffuse centrilobular nodules with groundglass opacity. Differential for these interstitial findings include hypersensitivity pneumonitis, respiratory bronchiolitis, and DIP (diffuse interstitial pneumonitis). Metastatic disease is not excluded. 3. L1 compression fracture, unknown acuity. 4. Partially healed right T7, T9, and T10 rib fractures. Findings and recommendations discussed with Zhen Mejía MD at 2352 hour, . Final report concurs with initial preliminary interpretation. Imaging: I viewed and interpreted images myself ED Course/Re-evaluation: Patient with chest tightness and COPD exacerbation with bronchitis. Patient has not started antibiotics. Was noted to have chest mass on his chest x-ray yesterday. Will obtain CT scan today. He is feeling improved after DuoNeb and Solu-Medrol by EMS. Will given some anti-inflammatories pain. Patient states he took all of his daily dosed oxycodone earlier to treat his chest discomfort. CT scan results noted. I have discussed with Dr. Sukhwinder Melchor, pulmonology. He is recommending that we start the patient on Augmentin and the patient's follow- up in his office in the next week or 2. Patient right now is comfortable. No more wheeze, oxygen saturations 96% on room air. He is not tachypneic. I have explained to him the findings in the importance of taking his antibiotics and follow-up. I have arranged to get his antibiotics filled here. Understands the seriousness of the findings assures me he will follow up with Dr. Melchor. - Data Points Laboratory Results: Laboratory Results 06/26/16 22:30 06/26/16 22:30 06/26/16 06/26/16 22:30 22:30 WBC 15.35 10^3/uL H 10^3/uL (3.80-9.50) RBC 4.75 10^6/uL 10^6/uL (4.40-6.38) Hgb 12.2 g/dL L g/dL (13.7-17.5) Hct 38.6 % L % (40.0-51.0) MCV 81.3 fL L fL (81.5-99.8) MCH 25.7 pg L pg (27.9-34.1) MCHC 31.6 g/dL L g/dL (32.4-36.7) RDW 17.2 % H % (11.5-15.2) Plt Count 268 10^3/uL 10^3/uL (150-400) MPV 10.3 fL fL (8.7-11.7) Neut % (Auto) Not Reported Lymph % (Auto) Not Reported [place] % (Auto) Not Reported Eos % (Auto) Not Reported Baso % (Auto) Not Reported Nucleat RBC Rel Count 0.0 % % (0.0-0.2) Absolute Neuts (auto) Not Reported Absolute Lymphs (auto) Not Reported Absolute Monos (auto) Not Reported Absolute Eos (auto) Not Reported Absolute Basos (auto) Not Reported Absolute Nucleated RBC 0.00 10^3/uL 10^3/uL (0-0.01) Immature Gran % Not Reported Seg Neutrophils % 47 % % Band Neutrophils % 27 % % Lymphocytes % 20 % % Monocytes % 6 % % Immature Gran # Not Reported Absolute Seg Neuts 7.21 10^/uL H 10^/uL (1.70-6.50) Absolute Band Neuts 4.14 10^3/uL H 10^3/uL (0.00-0.70) Absolute Lymphocytes 3.07 10^3/uL H 10^3/uL (1.00-3.00) Absolute Monocytes 0.92 10^3/uL H 10^3/uL (0.30-0.80) Toxic Granulation PRESENT H Toxic Vacuolation PRESENT H Platelet Estimate ADEQUATE (ADEQ) Large Platelets PRESENT H Sodium 138 mEq/L mEq/L (134-144) Potassium 3.8 mEq/L mEq/L (3.5-5.2) Chloride 105 mEq/L mEq/L (97-110) Carbon Dioxide 20 mEq/l L mEq/l (22-31) Anion Gap 13 mEq/L mEq/L (8-16) BUN 14 mg/dL mg/dL (7-23) Creatinine 0.8 mg/dL mg/dL (0.7-1.3) Estimated GFR > 60 Glucose 87 mg/dL mg/dL (70-100) Calcium 9.1 mg/dL mg/dL (8.5-10.4) Medications Given: Discontinued Medications Amoxicillin/Clavulanate Potassium (Augmentin 875mg) 875 mg PO EDNOW ONE PRN Reason: Protocol Stop: 06/27/16 01:05 Last Admin: 06/27/16 01:09 Dose: 875 mg Ketorolac Tromethamine (Toradol) 15 mg IVP EDNOW ONE Stop: 06/26/16 23:00 Last Admin: 06/26/16 23:14 Dose: 15 mg Departure - Departure Disposition: Home, Routine, Self-Care Clinical Impression: Acute bronchitis, Lung mass Condition: Good Instructions: Acute Bronchitis (ED), Amoxicillin/Clavulanate Potassium (By mouth), Prednisone (By mouth) Additional Instructions: It is extremely important that you take your full course of antibiotics. It is extremely important that you follow up with Dr. Melchor, wetland scientist in the next week. Return to the emergency department for increasing shortness of breath, cough, fevers, chills, chest pain, or any other concerns. Take prednisone for the next 3 days. You may use your inhaler with a spacer 1-2 puffs every 4 hours as needed for wheezing. Referrals: Patient,NotPresent [Unknown] - As per Instructions Jaime Melchor MD [Medical Doctor] - As per Instructions Prescriptions: Amoxicillin/Clavulanate Pot [Augmentin 875 MG TAB (*)] 875 mg PO BID #28 tab predniSONE 60 mg PO DAILY #9 tab
[2016-06-26 23:00] LABS: ADD MORPH? NO; ATYPICAL LYMPHOCYTE FLAG 30 (0-99); FRAGMENT RBC FLAG 0 (0-99); HEMATOCRIT 38.6 % (40.0-51.0); HEMOGLOBIN 12.2 g/dL (13.7-17.5); LIPEMIA HEMOLYSIS FLAG 80 (0-99); MEAN CELL HEMOGLOBIN 25.7 pg (27.9-34.1); MEAN CELL HEMOGLOBIN CONCENTR. 31.6 g/dL (32.4-36.7); MEAN CELL VOLUME 81.3 fL (81.5-99.8); MEAN PLATELET VOLUME 10.3 fL (8.7-11.7); PLATELET CLUMPS FLAG 10 (0-99); PLATELET COUNT 268 10^3/uL (150-400); RED BLOOD CELL COUNT 4.75 10^6/uL (4.40-6.38); RED CELL DISTRIBUTION WIDTH 17.2 % (11.5-15.2)
[2016-06-26] MEDS ORDERED: IOPAMIDOL (ISOVUE-300) 100 ML BTL ONE (23:02)
[2016-06-26 23:03] LABS: ADD DIFF? YES; ADD SCAN? NO; LEFT SHIFT FLG 250 (0-99)
[2016-06-26 23:06] LABS: ANION GAP 13 mEq/L (8-16); CALCIUM 9.1 mg/dL (8.5-10.4); CARBON DIOXIDE 20 mEq/l (22-31); CHLORIDE 105 mEq/L (97-110); CREATININE 0.8 mg/dL (0.7-1.3); GLOMERULAR FILTRATION RATE > 60; GLUCOSE 87 mg/dL (70-100); POTASSIUM 3.8 mEq/L (3.5-5.2); SODIUM 138 mEq/L (134-144)
[2016-06-27] MEDS ORDERED: AMOXICILLIN/CLAVULANATE POT 875/125 MG TAB PO SCH
[2016-06-27] MEDS ORDERED: predniSONE 20 MG TAB PO SCH
[2016-06-27 00:04] LABS: LARGE PLATELETS PRESENT; PLATELET ESTIMATE ADEQUATE (ADEQ); TOXIC GRANULATION PRESENT; TOXIC VACUOLIZATION PRESENT
[2016-06-27] MEDS ORDERED: AMOXICILLIN/CLAVULANATE POT 875/125 MG TAB PO ONE (01:04)
[2016-06-27 02:54] VITALS: BP 136/82; PULSE 102; TEMP 98.4; O2SAT 93
== END 2016-06-27 02:51 | disposition home or self-care (01) ==
LOC: EDUNIT#
DX: J20.9 Acute bronchitis, unspecified (principal); R91.8 Other nonspecific abnormal finding of lung field; I10 Essential (primary) hypertension; J44.9 Chronic obstructive pulmonary disease, unspecified; F17.200 Nicotine dependence, unspecified, uncomplicated
CPT/HCPCS: 71260; 96374; 99285; J1885; J7512; Q9967

== ENCOUNTER → 2016-07-20 | Day surgery (SDC) | payer OTHER, MEDICAID ==
[~2016-07-20] MED LIST: FLUMAZENIL 0.5 MG/5 ML MDV IVP ONE; LIDOCAINE 1% 300 MG/30 ML SDV ONE; MIDAZOLAM 2 MG/2 ML VIAL ONE; NALOXONE HCL 0.4 MG/ML INJ ONE; NS 1,000 ML IV SCH; fentaNYL 100 MCG/2 ML INJ ONE
[2016-07-20 11:31] LABS: HEMATOCRIT 37.8 % (40.0-51.0)
[2016-07-20 11:42] LABS: INR 1.14 (0.83-1.16); PROTIME(PATIENT) 14.5 SEC (12.0-15.0)
[2016-07-20 11:43] LABS: APTT 28.8 SEC (23.0-38.0)
== END | disposition home or self-care (01) ==
LOC: FIMAGING 10:47
PROVIDERS: ATTEND Radiology Diagnostic Radiology
PROC: 0BBD3ZX Excision of Right Middle Lung Lobe, Percutaneous Approach, Diagnostic (ICD-10-PCS; principal; 2016-07-20)
DX: J21.9 Acute bronchiolitis, unspecified (principal); R05 Cough; R07.89 Other chest pain; F17.210 Nicotine dependence, cigarettes, uncomplicated
CPT/HCPCS: J2250; J2310; J3010

== ENCOUNTER 2016-07-31 21:26 | Observation (INO) | payer OTHER, MEDICAID ==
--- NOTE | 2016-07-31 21:51 | EDPHY ---
HPI/HX/ROS/PE/MDM Narrative: CHIEF COMPLAINT: Alcohol intoxication HISTORY OF PRESENT ILLNESS: The patient is a 51-year-old male presenting with alcohol intoxication. The patient states he ran out of pain medication so "I got drunk". The patient has an ongoing cough and a "negligible fever". He states [facility] He complains of back pain but states it is chronic. He denies chest pain, shortness of breath, palpitations, vomiting, diarrhea, urinary complaints, headache, lightheadedness. Patient was noted to be hypoxic to 88% on room air on arrival. REVIEW OF SYSTEMS: Aside from elements discussed in the HPI, a comprehensive 10-point review of systems was reviewed and is negative. PAST MEDICAL HISTORY: Chronic back pain, Hypertension SOCIAL HISTORY: Homeless. VITAL SIGNS: Reviewed by me GENERAL: Well-developed, well-nourished, somewhat disheveled, no obvious respiratory distress. HEENT: Atraumatic. Eyes: No icterus, no injection. Mouth: Very dry mucous membranes. No erythema or lesions. Neck: supple with no adenopathy. LUNGS: End expiratory wheezes. No rhonchi or rales. CARDIAC: Regular rate and rhythm, no rubs, murmurs or gallops. ABDOMEN: Soft, nontender, nondistended, bowel sounds normal. BACK: No CVA tenderness. Lower lumbar scar. EXTREMITIES: Old ecchymosis and abrasions to left upper extremity. NEURO: Alert and oriented, grossly nonfocal. SKIN: Warm and dry, no rash. PSYCHIATRIC: Normal mentation, no agitation. Portions of this note were transcribed by a medical professionals. I personally performed a history, physical exam, medical decision making, and confirmed accuracy of information the transcribed note. ED Course: Patient is pleasant male presenting with alcohol intoxication. Patient was saturating at 88% and placed on supplemental oxygen. He received Albuterol Neb. Patient's blood pressure was noted to be 86 systolic during my evaluation, however on recheck blood pressures in the 120 systolic. Given the patient's history of borderline hypoxemia, wheezing, and history of intermittent fevers, chest x-ray was ordered along with CBC, CHEM, and Lactic acid. Lactic acid is 5.2. WBC 13. Patient started on IV fluids. Chest x-ray is negative for pneumonia. Plan for repeat lactic acid. Repeat lactic acid after 2000 cc of fluid is 4.0. The patient presents to the ED with reported history of intermittent low-grade fevers , cough, and wheezing. No documented fever on arrival here. Patient does have an elevated white blood cell count and borderline hypoxic. Concern for an infection was raised. The patient did have evidence of end-organ dysfunction and met criteria for severe sepsis. This condition was identified by myself at 2230. The patients vital signs are 125/85, 92, 20, 96% on 2 L, afebrile. The patient has a venous lactic acid performed within 3 hours of the identification of severe sepsis which was found to be 5.2. The patient has blood cultures drawn and received Levaquin IV, per the severe sepsis treatment protocol. The initial lactate was elevated and rechecked within 6 hours of the identification time of severe sepsis and found to be: 4.0 The patient also met criteria for septic shock because of lactic acid greater than 4.0. The patient received a 30 mL/kg bolus within 3 hours. patient was not hypotensive in the emergency department. Focused examination demonstrated Blood pressure 125/85, heart rate 92, respiratory rate 20, regular rate and rhythm, diffuse wheezes on pulmonary examination, brisk capillary refill, strong peripheral pulses, and the skin is warm and dry. Patient's course was discussed at length with Dr. Hutchins. Patient's light elevated lactic acid may be secondary to factors other than infection and sepsis ; patient is quite intoxicated at 386, and has signs of dehydration on examination. Single dose of Levaquin was administered in the emergency department to cover for respiratory pathogens, further antibiotic therapy as to be determined by hospitalist. MDM: Differential diagnoses for the patient's symptom complex was considered including but not limited to airways disease, pneumonia, hypoxemia, bronchospasm , viral infection, dehydration, alcohol intoxication, lactic acidosis secondary to hepatic insufficiency. - Data Points Imaging Results: CXR: Impression: 1 Findings most consistent with airways disease are seen with no superimposed acute abnormality identified. 2 see above report for additional findings. Imaging: Discussed imaging studies w/ house calls nurse Radiologist, I viewed and interpreted images myself Laboratory Results: Laboratory Results 07/31/16 21:35 07/31/16 21:35 Medications Given: Discontinued Medications Albuterol (Proventil Neb) 3 ml IH EDNOW ONE Stop: 07/31/16 21:58 Last Admin: 07/31/16 22:10 Dose: 3 ml Albuterol/Ipratropium (Duoneb) 3 ml IH Q6 PADMA Stop: 01/28/17 00:00 Last Admin: 08/01/16 11:53 Dose: Not Given Lisinopril/HCTZ (Zestoretic) 1 ea PO DAILY PADMA Stop: 01/28/17 09:44 Last Admin: 08/01/16 10:29 Dose: 1 ea Sodium Chloride (Ns) 1,000 mls @ 0 mls/hr IV ONCE ONE; Wide Open PRN Reason: Protocol Stop: 07/31/16 21:58 Last Admin: 07/31/16 22:00 Dose: 1,000 mls Levofloxacin/Dextrose (Levaquin 750 Mg (Premix)) 150 mls @ 100 mls/hr IV EDNOW ONE PRN Reason: Protocol Stop: 07/31/16 23:51 Last Admin: 07/31/16 22:45 Dose: 150 mls Sodium Chloride (Ns) 1,000 mls @ 0 mls/hr IV ONCE ONE PRN Reason: Wide Open Stop: 07/31/16 22:31 Last Admin: 07/31/16 22:30 Dose: 1,000 mls Sodium Chloride (Ns) 3,300 mls @ 6,600 mls/hr 30 ml/kg infuse over 30 min ( 3300 ml) IV EDNOW ONE PRN Reason: Protocol Stop: 07/31/16 23:23 Last Admin: 07/31/16 23:06 Dose: 1,300 mls Sodium Chloride (Ns) 1,000 mls @ 125 mls/hr IV CONT PADMA Stop: 01/27/17 23:44 Last Admin: 08/01/16 02:09 Dose: 1,000 mls Thiamine HCl 500 mg/ Sodium (Chloride) 105 mls @ 210 mls/hr IV DAILY PADMA Stop: 08/03/16 09:29 Last Admin: 08/01/16 09:10 Dose: 105 mls Nicotine (Nicoderm Cq) 21 mg TD DAILY PADMA Stop: 01/28/17 08:59 Last Admin: 08/01/16 02:09 Dose: 21 mg Oxycodone HCl (Oxycodone Ir) 15 mg PO Q4HRS PRN PRN Reason: Pain, Severe Able to Take PO Stop: 08/11/16 00:39 Last Admin: 08/01/16 13:24 Dose: 15 mg Prednisone (Prednisone) 40 mg PO DAILY PADMA Stop: 01/28/17 08:59 Last Admin: 08/01/16 07:58 Dose: 40 mg Prednisone (Prednisone) 40 mg PO ONCE ONE Stop: 08/01/16 00:42 Last Admin: 08/01/16 01:04 Dose: 40 mg Fluticasone/Salmeterol (Advair) 1 puffs IH BID PADMA Stop: 01/28/17 09:44 Last Admin: 08/01/16 11:53 Dose: Not Given Microbiology Results: MICROBIOLOGY 07/31/16 22:35 Blood Blood Culture - Preliminary 07/31/16 22:30 Blood Blood Culture - Preliminary 07/31/16 23:05 Nasal, Sinus - Swab Respiratory Panel (PCR) - Final No Organism Detected General Time Seen by Provider: 07/31/16 21:27 Initial Vital Signs: Initial Vital Signs Temperature (C) 37 C 07/31/16 21:33 Heart Rate 88 07/31/16 21:33 Respiratory Rate 20 07/31/16 21:33 Blood Pressure 130/89 H 07/31/16 21:33 O2 Sat (%) 93 07/31/16 21:33 O2 Delivery Mode Nasal Cannula O2 (L/minute) 2 Allergies/Adverse Reactions: gabapentin Allergy (Verified 06/26/16 22:49) bee stings Allergy (Severe, Uncoded 03/23/16 23:31) Anaphylaxis Home Medications: Medication Instructions Recorded Fluticasone/Salmeter 250/50Mcg 1 puffs IH BID 06/25/16 [Advair 250/50 (*)] oxyCODONE IR [Oxycodone Ir (*)] 15 mg PO Q4H PRN 07/17/16 Albuterol [Proventil Inhaler HFA 1 - 2 puffs IH DAILY PRN 08/01/16 (*)] Amphet Asp and D/Amphet [Adderall 10 mg PO BID 08/01/16 10 MG (*)] Ipratropium/Albuterol [Duoneb (*)] 3 ml IH DAILY PRN 08/01/16 Lisinopril/Hctz 20/12.5MG 1 ea PO DAILY 08/01/16 [Zestoretic/Prinzide 20/12.5MG (*)] Promethazine HCl [Phenergan 25mg 25 mg PO Q4HRS PRN 08/01/16 (*)] predniSONE 40 mg PO DAILY #28 tablet 08/01/16 Departure - Departure Disposition: Home, Routine, Self-Care Clinical Impression: Reversible airways disease, Lactic acidosis Alcohol intoxication Qualifiers: Complication of substance-induced condition: uncomplicated Qualified Code(s): F10.920 - Alcohol use, unspecified with intoxication, uncomplicated Condition: Good Report Scribed for: Ashley Catherine Report Scribed by: Zee Blankenship Date of Report: 07/31/16 Time of Report: 21:53
[2016-07-31] MEDS ORDERED: NS 1,000 ML IV ONE ×2 (21:57→22:30)
[2016-07-31] MEDS ORDERED: ALBUTEROL 3 ML DEYVIAL IH ONE (21:57)
[2016-07-31 22:04] LABS: % IMMATURE GRANULYOCYTES 0.3 % (0.0-1.1); ABSOLUTE IMMATURE GRANULOCYTES 0.04 10^3/uL (0.00-0.10); ADD DIFF? NO; ADD MORPH? NO; ADD SCAN? NO; ATYPICAL LYMPHOCYTE FLAG 10 (0-99); FRAGMENT RBC FLAG 0 (0-99); HEMOGLOBIN 15.2 g/dL (13.7-17.5); LEFT SHIFT FLG 0 (0-99); LIPEMIA HEMOLYSIS FLAG 80 (0-99); MEAN CELL HEMOGLOBIN 26.3 pg (27.9-34.1); MEAN CELL HEMOGLOBIN CONCENTR. 32.3 g/dL (32.4-36.7); MEAN CELL VOLUME 81.2 fL (81.5-99.8); MEAN PLATELET VOLUME 10.1 fL (8.7-11.7); PLATELET CLUMPS FLAG 0 (0-99); PLATELET COUNT 405 10^3/uL (150-400); RED BLOOD CELL COUNT 5.79 10^6/uL (4.40-6.38); RED CELL DISTRIBUTION WIDTH 17.1 % (11.5-15.2)
[2016-07-31 22:14] LABS: ANION GAP 22 mEq/L (8-16); CALCIUM 9.3 mg/dL (8.5-10.4); CARBON DIOXIDE 17 mEq/l (22-31); CHLORIDE 109 mEq/L (97-110); GLOMERULAR FILTRATION RATE > 60; GLUCOSE 80 mg/dL (70-100); POTASSIUM 4.2 mEq/L (3.5-5.2); SODIUM 148 mEq/L (134-144)
[2016-07-31 22:31] LABS: BILIRUBIN,TOTAL 0.9 mg/dL (0.1-1.4); INR 1.05 (0.83-1.16); PROTIME(PATIENT) 13.6 SEC (12.0-15.0)
[2016-07-31 22:32] LABS: APTT 27.9 SEC (23.0-38.0)
[2016-07-31 22:50] LABS: ETHANOL SERUM 394 mg/dL (0-10)
[2016-07-31] MEDS ORDERED: NS 3,300 ML IV ONE (22:54)
[2016-07-31] MEDS ORDERED: NS 1,000 ML IV SCH (23:45)
[2016-07-31] MEDS ORDERED: chlordiazePOXIDE 25 MG CAP PO PRN (23:48)
[2016-07-31] MEDS ORDERED: PROMETHAZINE HCL 25 MG/ML INJ IVP PRN (23:49)
[2016-07-31] MEDS ORDERED: ONDANSETRON 4 MG/2 ML VIAL IVP PRN (23:49)
[2016-08-01 00:01] LABS: ALBUMIN 4.8 g/dL (3.5-5.0); BILIRUBIN,TOTAL 0.9 mg/dL (0.1-1.4); BILIRUBIN-CONJUGATED 0.5 mg/dL (0.0-0.5); BILIRUBIN-UNCONJUGATED 0.4 mg/dL (0.0-1.1); TOTAL PROTEIN 7.6 g/dL (6.3-8.2)
[2016-08-01 00:03] LABS: COLOR YELLOW; LEUKOCYTE ESTERASE,URINE NEGATIVE (NEGATIVE); NITRITE,URINE NEGATIVE (NEGATIVE)
[2016-08-01] MEDS ORDERED: predniSONE 20 MG TAB PO ONE (00:41)
[2016-08-01] MEDS ORDERED: predniSONE 20 MG TAB ONE (00:45)
[2016-08-01] MEDS ORDERED: oxyCODONE IR 5 MG TAB ONE (00:45)
[2016-08-01] MEDS ORDERED: IPRATROPIUM/ALBUTEROL 3 ML DEYVIAL ONE (00:46)
[2016-08-01] MEDS: IPRATROPIUM/ALBUTEROL 3 ML DEYVIAL IH SCH ×3 (01:05→11:53)
[2016-08-01] MEDS: oxyCODONE IR 15 MG TAB PO PRN ×4 (01:08→13:24)
[2016-08-01] MEDS ORDERED: NICOTINE 21 MG/24 HR PATCH TD ONE (01:51)
--- NOTE | 2016-08-01 01:53 | GHP ---
[f rep st] HISTORY AND PHYSICAL DATE OF ADMISSION: 07/31/2016 CHIEF COMPLAINT: Shortness of breath. HISTORY: The patient is a 51-year-old male, who is just finishing up a course of antibiotics for br onchitis. He has 1 more day of antibiotics left. He presents to the emergency room for persistentl y severe shortness of breath. There has been no chest pain. He had a lung biopsy done on July 20 in Interventional Radiology by Dr. Zaragoza. He was told that the bi opsy was negative and benign, and no further followup has been obtained. After the biopsy, he has b een having increasing pain. He takes oxycodone 15 mg every 4 hours and is followed up by a chronic pain specialist. Due to this lung biopsy causing increased pain, he has increased his narcotic usag e and run out too quickly. He is not eligible for a refill of his narcotic prescription until this Saturday. Due to this severe, uncontrolled pain, without his usual narcotics, he has started drinking again. He had been sober for 9 months; however, bought a pint of liquor last night to assist with pain control. He says he only had 2 sips and then threw the rest away. He has chronically poor ora l intake and poor appetite due to his previous gastric bypass surgery. PAST MEDICAL HISTORY: 1. Alcoholism. 2. Obesity, status post gastric bypass surgery. 3. Bipolar disorder. 4. Seizure secondary to withdrawal. 5. Chronic back pain with continuous narcotic dependency. 6. Recent lung mass biopsy. PAST SURGICAL HISTORY: Back fusion x3, left total knee arthroplasty, and cholecystectomy. MEDICATIONS: Please see computer record for full detailed list. He does take OxyContin 15 mg q.4 h ours as needed. ALLERGIES: To gabapentin. SOCIAL HISTORY: Smokes a half a pack per day. Recent alcohol, but he claims only 1 time, but has o therwise been sober for 9 months. Currently, staying at a snf. REVIEW OF SYSTEMS: Complete review of systems obtained. Review of systems is negative regarding co nstitutional, HEENT, GI, pulmonary, cardiovascular, , hematology, skin, muscular, endocrine, psych , except for positives and negatives as noted in HPI. FAMILY HISTORY: Reviewed and noncontributory to the presenting complaints. PHYSICAL EXAMINATION: GENERAL: Well-developed, well-nourished male, in no acute distress. VITAL S IGNS: Temperature is 36.6, pulse 96, blood pressure 140/69, saturating 94% on 2 L. EYES: Normal c onjunctivae. Pupils react to light. ENT: Normal ears and nose. Hearing intact. Normal teeth. O ropharynx moist. NECK: Trachea midline. No thyromegaly. CHEST: Mild respiratory distress. Bila teral wheezing, occasional rhonchi. CARDIOVASCULAR: Regular rate and rhythm. No murmur. No extre mity edema. ABDOMEN: Soft, nontender. No hepatosplenomegaly. SKIN: Warm, dry, intact. No rash. MUSCULOSKELETAL: No cyanosis or clubbing. Strength 5/5 upper and lower extremities. NEUROLOGIC: Cranial nerves intact. Normal sensation to light touch. PSYCH: Alert and oriented x3. Normal m ood and affect. Normal judgment. Normal insight. Normal memory. He does not appear terribly into xicated at this time and is a very good historian, and very cooperative without slurring of speech. LABORATORY DATA: White count 13.22, hematocrit 47, platelets 404. Sodium 148, potassium 4.2, chlor tatyana 101, bicarb 17, BUN 16, creatinine 1, glucose of 80. INR is 1.05. Lactate is initially 5.1, do wn to 4.1. Alcohol level 394. Chest x-ray is negative. This case was discussed with Dr. Ashley Catherine, emergency room physician. She was concerned about hi s elevated lactate, and therefore felt he needed admission. She gave him Levaquin for possible seps is. OLD CHART REVIEW: It appears his lung biopsy was performed by Dr. Zaragoza in CAT Scan. There are no ot her inpatient records available. That CAT scan did show a right lung mass. Pathology was negative for malignancy, but did show organizing pneumonia. ASSESSMENT AND PLAN: 1. Chronic obstructive pulmonary disease exacerbation. He is wheezing and hypoxic on presentation. We will initiate steroids and nebulizers. He got Levaquin in the emergency room, although he is f inishing up a course of outpatient antibiotics. He is at the end of the course and I am not sure an y further antibiotics will be necessary at this time. 2. Recent lung biopsy showing organizing pneumonia. I suspect this is contributing to his shortnes s of breath. It appears he has not gotten any followup for this biopsy result, and it is concerning for BOOP or cryptogenic organizing pneumonia. Treatment for this would be steroids. This would be a much slower steroid taper as an outpatient than we would otherwise do for COPD. He will need out patient pulmonary followup. Would consider getting an inpatient Pulmonary consultation. 3. Alcohol abuse. His history does not match his blood alcohol level. He presents with a BAL of 3 94. He claims he had only 2 sips of alcohol prior to admission. We will place him on IV thiamine a nd a [facility] protocol. 4. Tobacco dependence. We will place him on nicotine patch. 5. Chronic back pain with continuous narcotic dependency. He takes oxycodone every 4 hours, 15 mg. He has run out of his prescription too soon due to increased usage of narcotics after lung biopsy. 6. Lactic acid elevation. I do not think he has sepsis. Blood cultures are pending. He received empiric Levaquin in the emergency room, but hold off on further antibiotics at this time. We will h ydrate with IV fluids and follow serial lactates. His lactic acid elevation may be due to a combina tion of hypovolemia and poor lactate clearance by the liver due to alcohol abuse. 7. Obesity, status post gastric bypass surgery. He continues to have a BMI of 33. 8. Bipolar disorder. Clarify home medications. CODE STATUS: Full. ADMISSION STATUS: We will admit to observation and depending on how rapidly he improves, will deter mine length of stay. DVT PROPHYLAXIS: He is low risk. We will hold off on pharmacologic prophylaxis at this time. /[id number]/MODL
[2016-08-01 04:33] LABS: % IMMATURE GRANULYOCYTES 0.3 % (0.0-1.1); ABSOLUTE IMMATURE GRANULOCYTES 0.02 10^3/uL (0.00-0.10); ADD DIFF? NO; ADD MORPH? NO; ADD SCAN? NO; ATYPICAL LYMPHOCYTE FLAG 0 (0-99); FRAGMENT RBC FLAG 0 (0-99); HEMATOCRIT 38.1 % (40.0-51.0); HEMOGLOBIN 11.9 g/dL (13.7-17.5); LEFT SHIFT FLG 10 (0-99); LIPEMIA HEMOLYSIS FLAG 80 (0-99); MEAN CELL HEMOGLOBIN 25.6 pg (27.9-34.1); MEAN CELL HEMOGLOBIN CONCENTR. 31.2 g/dL (32.4-36.7); MEAN CELL VOLUME 81.9 fL (81.5-99.8); MEAN PLATELET VOLUME 9.7 fL (8.7-11.7); PLATELET CLUMPS FLAG 0 (0-99); PLATELET COUNT 267 10^3/uL (150-400); RED BLOOD CELL COUNT 4.65 10^6/uL (4.40-6.38); RED CELL DISTRIBUTION WIDTH 16.4 % (11.5-15.2)
[2016-08-01 04:43] LABS: INR 1.16 (0.83-1.16); PROTIME(PATIENT) 14.8 SEC (12.0-15.0)
[2016-08-01 04:53] LABS: ANION GAP 14 mEq/L (8-16); CALCIUM 7.9 mg/dL (8.5-10.4); CARBON DIOXIDE 16 mEq/l (22-31); CHLORIDE 114 mEq/L (97-110); CREATININE 0.8 mg/dL (0.7-1.3); GLOMERULAR FILTRATION RATE > 60; GLUCOSE 99 mg/dL (70-100); MAGNESIUM 1.7 mg/dL (1.6-2.3); SODIUM 144 mEq/L (134-144)
[2016-08-01 07:22] VITALS: RESP 16
[2016-08-01] MEDS ORDERED: predniSONE 20 MG TAB PO SCH (09:00)
[2016-08-01] MEDS ORDERED: NICOTINE 21 MG/24 HR PATCH TD SCH (09:00)
[2016-08-01] MEDS ORDERED: THIAMINE HCL 500 MG in NS 100 ML IV SCH (09:00)
[2016-08-01] MEDS ORDERED: ALBUTEROL 60 PUFFS/8 GM MDI IH PRN (09:44)
[2016-08-01] MEDS ORDERED: LISINOPRIL/HCTZ 20/12.5MG 1 EA TAB PO SCH (09:45)
[2016-08-01] MEDS ORDERED: FLUTICASONE/SALMETER 250/50MCG DISKUS IH SCH (09:45)
[2016-08-01] MEDS ORDERED: ALBUTEROL 200 PUFFS/18 GM MDI IH PRN (09:49)
[2016-08-01 11:59] VITALS: BP 158/96; PULSE 90; TEMP 98.1; O2SAT 93
--- NOTE | 2016-08-02 07:20 | GDS ---
[f rep st] DISCHARGE SUMMARY DISCHARGE DIAGNOSES: 1. Acute hypoxemic respiratory failure secondary to acute exacerbation of chronic obstructive pulmo nary disease, resolved. 2. Acute exacerbation of chronic obstructive pulmonary disease. 3. Suspected cryptogenic organizing pneumonia. 4. Alcohol abuse. 5. Tobacco abuse. 6. Chronic back pain with continuous opioid dependence. 7. Metabolic acidosis in the setting of elevated lactate without evidence of infection and likely s econdary to chronic alcohol abuse, with poor lactate clearance by the liver. 8. History of bipolar disorder. IMAGING: Chest x-ray showed bronchial thickening with much less conspicuous right hilar nodular [place], consistent with resolution of prior pneumonia or airspace disease. Hyperexpansion with flatte blanca of the diaphragms is noted as well as stable degenerative changes in the spine. HISTORY OF DETAILS: Please see the history and physical dated August 01. In brief, the patient is a 51-year-old male, with a history of alcohol abuse, chronic back pain with continuous opioid dependen cy, recent lung mass biopsy revealing findings consistent with cryptogenic organizing pneumonia, pre sented to the emergency department with shortness of breath. He was admitted to the hospital for pr esumed acute exacerbation of COPD. HOSPITAL COURSE: The patient was admitted to the medical-surgical unit. Per review of his records, he recently completed a course of antibiotics, and was afebrile without radiologic findings of pneu monia. He was treated with steroids and nebulizers and his wheezing was much improved the following morning, and his oxygen requirement had resolved, as he is saturating 94% on room air. Per chart catherine boland, he underwent biopsy of a right lung mass, on July 20, 2016, which showed changes consistent wi th organizing pneumonitis and respiratory bronchiolitis. There was no evidence of neoplastic proces s. I discussed the case with Dr. Jackson Camacho, Pulmonology, and we reviewed his June 26 and July [address] [facility] [place]. Over that period of time there was significant interval improvement of the right lung mass , as well as improvement of an infectious inflammatory finding. It was recommended by Pulmonology t hat he be treated with a prolonged steroid course of 40 mg daily for 10 days, followed by 20 mg jostin y for 5 days, followed by 5 mg daily for 5 days. I referred the patient to Dr. Camacho for outpatient followup for ongoing evaluation and treatment options. DISPOSITION: The patient is discharged home in stable condition. FOLLOWUP: 1. Dr. Jackson Camacho, Pulmonology. 2. [facility], on August 02, at 10:40. DISCHARGE MEDICATIONS: Please see [facility] for complete updated outpatient medication list. We andrew l continue all outpatient medications as previously prescribed, including Advair, albuterol and DuoN ebs. New medications on discharge include prednisone taper, which is described above. /[id number]/MODL
[2016-08-02] MEDS ORDERED: THIAMINE HCL 500 MG in NS 100 ML IV SCH (08:48)
[2016-08-03] MEDS ORDERED: THIAMINE HCL 100 MG TAB PO SCH (09:00)
[2016-08-04] MEDS ORDERED: THIAMINE HCL 100 MG TAB PO SCH (09:00)
== END 2016-08-01 13:25 | disposition home or self-care (01) ==
LOC: EDUNIT# → F3E 08-01 01:26
PROVIDERS: ADMIT Internal Medicine; ATTEND Hospitalist
DX: F10.920 Alcohol use, unspecified with intoxication, uncomplicated (principal); J44.1 Chronic obstructive pulmonary disease with (acute) exacerbation; J96.01 Acute respiratory failure with hypoxia; R74.0 Nonspecific elevation of levels of transaminase and lactic acid dehydrogenase [LDH]; R91.8 Other nonspecific abnormal finding of lung field; F11.220 Opioid dependence with intoxication, uncomplicated; E66.09 Other obesity due to excess calories; M54.5 Low back pain; I10 Essential (primary) hypertension; F31.9 Bipolar disorder, unspecified; G40.909 Epilepsy, unspecified, not intractable, without status epilepticus; F17.210 Nicotine dependence, cigarettes, uncomplicated; Z98.84 Bariatric surgery status; Z68.33 Body mass index [BMI] 33.0-33.9, adult; Z59.0 Homelessness; Z98.1 Arthrodesis status; Y90.8 Blood alcohol level of 240 mg/100 ml or more
CPT/HCPCS: 71020; 97165; G0378; G8987; G8988; G8989; J1956; J2550; J3411; G0480

== ENCOUNTER 2016-08-08 02:53 | Emergency (ER) | payer OTHER, MEDICAID ==
--- NOTE | 2016-08-08 03:05 | EDPHY ---
H & P HPI/ROS: HPI CHIEF COMPLAINT: Shortness of breath HISTORY OF PRESENT ILLNESS: This patient is a 51-year-old male, recent hospitalization for hypoxic respiratory failure, COPD, pneumonia, tobacco abuse has chronic back pain and bipolar, presents emergency room by EMS for shortness of breath that started earlier today. Progressively worsening throughout the day. He does tell me he has been compliant with his antibiotics, however he does continue to smoke. He presents emergency room by EMS short of breath. Wheezing. Tachypneic. However only mild distress. Denies fever. Denies chest pain. Past Medical History: COPD, hypoxic respiratory failure, pneumonia, tobacco abuse, chronic back pain, bipolar Past Surgical History: Recent lung biopsy Social History: Daily tobacco use, denies illicit drugs or alcohol currently Family History: Noncontributory ROS REVIEW OF SYSTEMS: A comprehensive 10 point review of systems is otherwise negative aside from elements mentioned in the history of present illness. Exam Constitutional appears well nontoxic triage nursing summary reviewed, vital signs reviewed, awake/alert. Eyes normal conjunctivae and sclera, EOMI, PERRLA. HENT normal inspection, atraumatic, moist mucus membranes, no epistaxis, neck supple/ no meningismus, no raccoon eyes. Respiratory decreased breath sounds bilaterally faint wheezing bilaterally, mild tachypnea Cardiovascular rate normal, regular rhythm, no murmur, no edema, distal pulses normal. Gastrointestinal soft, non-tender, no rebound, no guarding, normal bowel sounds, no distension, no pulsatile mass. Genitourinary no CVA tenderness. Musculoskeletal no midline vertebral tenderness, full range of motion, no calf swelling, no tenderness of extremities, no meningismus, good pulses, neurovascularly intact. Skin pink, warm, & dry, no rash, skin atraumatic. Neurologic awake, alert and oriented x 3, AAOx3, moves all 4 extremities equally, motor intact, sensory intact, CN II-XII intact, normal cerebellar, normal vision, normal speech. Psychiatric normal mood/affect. Heme/Lymph/Immune no lymphadenopathy. 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 EKG. Re- evaluate. Re-evaluation: EKG interpretation by me on record in [employer] system. Impression time of EKG 3:18 a.m., this is sinus rhythm rate of 78 I do not appreciate acute ischemic changes specifically no ST elevation, ST depression or significant T- wave abnormalities. When I compare this EKG to his old EKG 01/25/2016 is very similar morphology. ED x-ray chest one view: Unchanged from previous chest x-ray. I do not appreciate a new focal pneumonia. 0401: Patient's IV stops working. Multiple times and IV stick parotid by nursing care however unable to get IV established. I did use a bedside ultrasound to visualize external jugular vein on the right side of the neck and placed an 18 gauge present. Good blood return flushed easily. No significant pain or neck swelling. He tolerated this well he now has a working right external jugular 18 gauge IV. 0402: Of note the patient is resting comfortably feels much better after DuoNeb breathing treatment. Re-examination of his lungs are clear good air movement. Vital signs remained stable. 94% room air saturation heart rate 72. Blood pressure 138/64 this time. Resting comfortably no chest pain. 0450AM: Again patient re-evaluated resting comfortably. Getting his 2nd L fluid he initially had elevated lactic 3. He is afebrile. No evidence of significant infection on exam or on x-ray. Will repeat his lactic after 2nd L fluid at the [facility] down rule out to be discharged as he feels well. Tells me wants to go home shot tonight and work tomorrow. He has no respiratory distress lungs are clear. He has been sleeping most the time here in the ER. 0453AM: Patient's IV infiltrated again. This time is refusing any further IV sticks. States he feels fine and he would like a cab to his [facility]. Patient is refusing further IV sticks or blood draw. He would like to be discharged from the emergency room to go home. He states he feels fine. I think this is reasonable given that he is hemodynamically stable no acute distress respiratory symptoms have resolved. He has good airway movement. No wheezing. Vital signs are stable. He would like transportation back to his [facility]. Given that is refusing any further IV sticks for blood draw. Unable to repeat his lactic acid. However there is no evidence of sepsis. He is not hypoxic is afebrile. Appears well. I feel it is reasonable to not sticking any further allowed to go home. He does understand if he has any worsening symptoms questions or concerns including shortness of breath, fever, vomiting does not feel well to return emergency room. Source: Patient, EMS - Personal History Tetanus Vaccine Date: 2010 - Medical/Surgical History Hx Asthma: No Hx Chronic Respiratory Disease: Yes Hx Diabetes: No Hx Cardiac Disease: No Hx Renal Disease: No Hx Cirrhosis: No Hx Alcoholism: Yes Hx HIV/AIDS: No Hx Splenectomy or Spleen Trauma: No Other PMH: PMH: htn, depression/anxiety,chronic back pain. [id number]-fusion, [place],left knee,gastric bypass, COPD - Social History Smoking Status: Heavy smoker Constitutional: Initial Vital Signs Heart Rate 79 08/08/16 03:04 Respiratory Rate 20 08/08/16 03:04 Blood Pressure 136/94 H 08/08/16 03:04 O2 Sat (%) 95 08/08/16 03:04 O2 Delivery Mode Room Air O2 (L/minute) 36.8 Allergies/Adverse Reactions: gabapentin Allergy (Verified 06/26/16 22:49) bee stings Allergy (Severe, Uncoded 03/23/16 23:31) Anaphylaxis Home Medications: Medication Instructions Recorded Fluticasone/Salmeter 250/50Mcg 1 puffs IH BID 06/25/16 [Advair 250/50 (*)] oxyCODONE IR [Oxycodone Ir (*)] 15 mg PO Q4H PRN 07/17/16 Albuterol [Proventil Inhaler HFA 1 - 2 puffs IH DAILY PRN 08/01/16 (*)] Amphet Asp and D/Amphet [Adderall 10 mg PO BID 08/01/16 10 MG (*)] Ipratropium/Albuterol [Duoneb (*)] 3 ml IH DAILY PRN 08/01/16 Lisinopril/Hctz 20/12.5MG 1 ea PO DAILY 08/01/16 [Zestoretic/Prinzide 20/12.5MG (*)] Promethazine HCl [Phenergan 25mg 25 mg PO Q4HRS PRN 08/01/16 (*)] predniSONE 40 mg PO DAILY #28 tablet 08/01/16 Medical Decision Making - Data Points Laboratory Results: Laboratory Results 08/08/16 04:00 08/08/16 03:10 08/08/16 08/08/16 08/08/16 04:00 04:00 03:10 WBC 7.50 10^3/uL 10^3/uL (3.80-9.50) RBC 4.87 10^6/uL 10^6/uL (4.40-6.38) Hgb 12.7 g/dL L g/dL (13.7-17.5) Hct 39.9 % L % (40.0-51.0) MCV 81.9 fL fL (81.5-99.8) MCH 26.1 pg L pg (27.9-34.1) MCHC 31.8 g/dL L g/dL (32.4-36.7) RDW 16.5 % H % (11.5-15.2) Plt Count 238 10^3/uL 10^3/uL (150-400) MPV 10.4 fL fL (8.7-11.7) Neut % (Auto) 69.7 % % (39.3-74.2) Lymph % (Auto) 23.3 % % (15.0-45.0) [place] % (Auto) 5.3 % % (4.5-13.0) Eos % (Auto) 0.9 % % (0.6-7.6) Baso % (Auto) 0.4 % % (0.3-1.7) Nucleat RBC Rel Count 0.0 % % (0.0-0.2) Absolute Neuts (auto) 5.22 10^3/uL 10^3/uL (1.70-6.50) Absolute Lymphs (auto) 1.75 10^3/uL 10^3/uL (1.00-3.00) Absolute Monos (auto) 0.40 10^3/uL 10^3/uL (0.30-0.80) Absolute Eos (auto) 0.07 10^3/uL 10^3/uL (0.03-0.40) Absolute Basos (auto) 0.03 10^3/uL 10^3/uL (0.02-0.10) Absolute Nucleated RBC 0.00 10^3/uL 10^3/uL (0-0.01) Immature Gran % 0.4 % % (0.0-1.1) Immature Gran # 0.03 10^3/uL 10^3/uL (0.00-0.10) PT INR APTT VBG Lactic Acid 3.0 mmol/L H mmol/L (0.7-2.1) Sodium 145 mEq/L H mEq/L (134-144) Potassium 4.2 mEq/L mEq/L (3.5-5.2) Chloride 109 mEq/L mEq/L (97-110) Carbon Dioxide 22 mEq/l mEq/l (22-31) Anion Gap 14 mEq/L mEq/L (8-16) BUN 9 mg/dL mg/dL (7-23) Creatinine 0.7 mg/dL mg/dL (0.7-1.3) Estimated GFR > 60 Glucose 75 mg/dL mg/dL (70-100) Calcium 9.2 mg/dL mg/dL (8.5-10.4) Troponin I < 0.012 ng/mL ng/mL (0-0.034) NT-Pro-B Natriuret Pep 44 pg/mL pg/mL (0-125) 08/08/16 08/08/16 08/08/16 03:10 03:10 03:10 WBC REJ RBC TNP Hgb TNP Hct TNP MCV TNP MCH TNP MCHC TNP RDW TNP Plt Count TNP MPV TNP Neut % (Auto) TNP Lymph % (Auto) TNP [place] % (Auto) TNP Eos % (Auto) TNP Baso % (Auto) TNP Nucleat RBC Rel Count TNP Absolute Neuts (auto) TNP Absolute Lymphs (auto) TNP Absolute Monos (auto) TNP Absolute Eos (auto) TNP Absolute Basos (auto) TNP Absolute Nucleated RBC TNP Immature Gran % TNP Immature Gran # TNP PT 13.4 SEC SEC (12.0-15.0) INR 1.03 (0.83-1.16) APTT 20.0 SEC L SEC (23.0-38.0) VBG Lactic Acid REJ Sodium Potassium Chloride Carbon Dioxide Anion Gap BUN Creatinine Estimated GFR Glucose Calcium Troponin I NT-Pro-B Natriuret Pep Medications Given: Discontinued Medications Albuterol/Ipratropium (Duoneb) 3 ml IH EDNOW ONE Stop: 08/08/16 03:07 Last Admin: 08/08/16 03:15 Dose: 3 ml Sodium Chloride (Ns) 1,000 mls @ 0 mls/hr IV ONCE ONE; Wide Open PRN Reason: Protocol Stop: 08/08/16 03:07 Last Admin: 08/08/16 04:00 Dose: 1,000 mls Departure - Departure Disposition: Home, Routine, Self-Care Clinical Impression: Wheezing Condition: Good Instructions: Wheezing (ED) Additional Instructions: 1. Return emergency room if you have any worsening symptoms questions or concerns. Referrals: Mandie Howard [Primary Care Provider] - As per Instructions
[2016-08-08] MEDS ORDERED: IPRATROPIUM/ALBUTEROL 3 ML DEYVIAL IH ONE (03:06)
[2016-08-08] MEDS ORDERED: NS 1,000 ML IV ONE ×2 (03:06→04:23)
--- NOTE | 2016-08-08 03:19 | CPEKG ---
Heart Rate: 78 RR Interval: 769 P-R Interval: 148 QRSD Interval: 72 QT Interval: 388 QTC Interval: 442 P [place]: -2 QRS [place]: 35 T Wave [place]: 66 EKG Severity - BORDERLINE ECG - EKG Impression: SINUS RHYTHM EKG Impression: BORDERLINE R WAVE PROGRESSION, ANTERIOR LEADS Electronically Signed By: Yang Solomon 08-Aug-2016 06:48:04
[2016-08-08 03:34] LABS: INR 1.03 (0.83-1.16); PROTIME(PATIENT) 13.4 SEC (12.0-15.0)
[2016-08-08 03:35] LABS: ANION GAP 14 mEq/L (8-16); CALCIUM 9.2 mg/dL (8.5-10.4); CARBON DIOXIDE 22 mEq/l (22-31); CHLORIDE 109 mEq/L (97-110); CREATININE 0.7 mg/dL (0.7-1.3); GLOMERULAR FILTRATION RATE > 60; GLUCOSE 75 mg/dL (70-100); POTASSIUM 4.2 mEq/L (3.5-5.2); SODIUM 145 mEq/L (134-144)
[2016-08-08 03:52] LABS: TROPONIN I < 0.012 ng/mL (0-0.034)
[2016-08-08 04:11] LABS: % IMMATURE GRANULYOCYTES 0.4 % (0.0-1.1); ABSOLUTE IMMATURE GRANULOCYTES 0.03 10^3/uL (0.00-0.10); ADD DIFF? NO; ADD MORPH? NO; ADD SCAN? NO; ATYPICAL LYMPHOCYTE FLAG 0 (0-99); FRAGMENT RBC FLAG 0 (0-99); HEMATOCRIT 39.9 % (40.0-51.0); HEMOGLOBIN 12.7 g/dL (13.7-17.5); LEFT SHIFT FLG 10 (0-99); LIPEMIA HEMOLYSIS FLAG 80 (0-99); MEAN CELL HEMOGLOBIN 26.1 pg (27.9-34.1); MEAN CELL HEMOGLOBIN CONCENTR. 31.8 g/dL (32.4-36.7); MEAN CELL VOLUME 81.9 fL (81.5-99.8); MEAN PLATELET VOLUME 10.4 fL (8.7-11.7); PLATELET CLUMPS FLAG 10 (0-99); PLATELET COUNT 238 10^3/uL (150-400); RED BLOOD CELL COUNT 4.87 10^6/uL (4.40-6.38); RED CELL DISTRIBUTION WIDTH 16.5 % (11.5-15.2)
[2016-08-08 05:04] VITALS: BP 157/86; PULSE 90; RESP 18; O2SAT 96
== END 2016-08-08 05:03 | disposition home or self-care (01) ==
LOC: EDUNIT#
DX: R06.2 Wheezing (principal); J44.9 Chronic obstructive pulmonary disease, unspecified; F17.200 Nicotine dependence, unspecified, uncomplicated; I10 Essential (primary) hypertension

== ENCOUNTER 2016-08-16 16:39 | Emergency (ER) | payer OTHER, MEDICAID ==
[2016-08-16 16:48] VITALS: BP 122/85; PULSE 93; RESP 18; TEMP 98.1; O2SAT 93
--- NOTE | 2016-08-16 17:08 | EDPHY ---
H & P Time Seen by Provider: 08/16/16 17:02 HPI/ROS: Chief complaint. Rib pain after seizure HPI. 51-year-old male here by EMS. About 2 hours ago bystanders witnessed the patient having a generalized seizure. The patient does not remember. He has a history of seizure disorder or alcohol withdrawal seizures. He does not take any anti seizure medication. He has rib pain on both sides following the seizure. He is unsure whether he hit anything and bystanders did not tell him that they observed him striking anything. He denies any other medications. Does admit to drinking alcohol today. He is not short of breath ROS Constitutional. no fever/chills, no weakness Eyes. no problems with vision ENT. no sore throat, no nasal drainage Cardiovascular. Bilateral rib pain Respiratory. no shortness of breath, no cough Abdominal. no abdominal pain, no nausea/vomiting, no diarrhea . no problems urinating MS. no calf pain/swelling, no neck/back pain, no joint pain Skin. no rash Lymph. no swollen glands Neuro. Seizure earlier today per witnesses Past Medical/Surgical History: Hypertension, bipolar illness, COPD, chronic back pain, gastric bypass, seizure disorder Social History: Single, daily smoker, recent alcohol Smoking Status: Heavy smoker Physical Exam: General Appearance: Alert well-developed male mild distress vital signs are stable Eyes: Pupils equal and round no pallor or injection. ENT, Mouth: Mucous membranes are moist. Respiratory: There are no retractions, lungs are clear to auscultation. Cardiovascular: Regular rate and rhythm. Gastrointestinal: Abdomen is soft and nontender, no masses, bowel sounds normal. Neurological: Awake and alert, sensory and motor exams grossly normal. Skin: Warm and dry, no rashes. Musculoskeletal: Neck is supple nontender. Tender left chest mid axillary line about T7 and right mid axillary line about T9. No surface trauma. Extremities symmetrical, full range of motion. Psychiatric: Patient is oriented X 3, there is no agitation. Constitutional: Initial Vital Signs Temperature (C) 36.7 C 08/16/16 16:47 Heart Rate 93 08/16/16 16:47 Respiratory Rate 18 08/16/16 16:47 Blood Pressure 122/85 H 08/16/16 16:47 O2 Sat (%) 93 08/16/16 16:47 O2 Delivery Mode Room Air Allergies/Adverse Reactions: gabapentin Allergy (Verified 06/26/16 22:49) bee stings Allergy (Severe, Uncoded 03/23/16 23:31) Anaphylaxis Home Medications: Medication Instructions Recorded Fluticasone/Salmeter 250/50Mcg 1 puffs IH BID 06/25/16 [Advair 250/50 (*)] oxyCODONE IR [Oxycodone Ir (*)] 15 mg PO Q4H PRN 07/17/16 Albuterol [Proventil Inhaler HFA 1 - 2 puffs IH DAILY PRN 08/01/16 (*)] Amphet Asp and D/Amphet [Adderall 10 mg PO BID 08/01/16 10 MG (*)] Ipratropium/Albuterol [Duoneb (*)] 3 ml IH DAILY PRN 08/01/16 Lisinopril/Hctz 20/12.5MG 1 ea PO DAILY 08/01/16 [Zestoretic/Prinzide 20/12.5MG (*)] Promethazine HCl [Phenergan 25mg 25 mg PO Q4HRS PRN 08/01/16 (*)] predniSONE 40 mg PO DAILY #28 tablet 08/01/16 Medical Decision Making - Diagnostics Imaging Results: Imaging Impressions Chest X-Ray 08/16/16 17:23 Impression: 1. Chest negative for acute cardiopulmonary abnormality. 2. Suspect airways disease. Chest x-ray reviewed by me shows no evidence of rib fracture or pneumothorax Procedures: Patient is repeatedly asking for pain medication. He is given IV Toradol. Breathalyzer was 186 ED Course/Re-evaluation: Re-evaluation patient is stable. He asked me again for pain medication. He tells me he has pain [facility] the [facility]. I have encouraged him to return to the [facility] in take his pain medicine as prescribed Differential Diagnosis: I considered rib fracture, pneumothorax, rib contusion - Data Points Medications Given: Discontinued Medications Ketorolac Tromethamine (Toradol) 30 mg IVP EDNOW ONE Stop: 08/16/16 17:24 Last Admin: 08/16/16 17:27 Dose: 30 mg Departure - Departure Disposition: Home, Routine, Self-Care Clinical Impression: Rib contusion Qualifiers: Encounter type: initial encounter Laterality: right Qualified Code(s): S20.211A - Contusion of right front wall of thorax, initial encounter Alcohol intoxication Qualifiers: Complication of substance-induced condition: uncomplicated Qualified Code(s): F10.920 - Alcohol use, unspecified with intoxication, uncomplicated Condition: Good Instructions: Rib Contusion (ED) Additional Instructions: Continue your regular medications including pain medication as prescribed. Return for worsening symptoms. Recheck in 2-3 days for continuing symptoms Referrals: Mandie Howard [Primary Care Provider] - 2-3 days, if not improved
[2016-08-16] MEDS ORDERED: KETOROLAC 30 MG/1 ML SDV IVP ONE (17:23)
== END 2016-08-16 17:52 | disposition home or self-care (01) ==
LOC: EDUNIT#
DX: S20.211A Contusion of right front wall of thorax, initial encounter (principal); F10.120 Alcohol abuse with intoxication, uncomplicated; I10 Essential (primary) hypertension; J44.9 Chronic obstructive pulmonary disease, unspecified; F17.200 Nicotine dependence, unspecified, uncomplicated; X58.XXXA Exposure to other specified factors, initial encounter
CPT/HCPCS: 71020; 96374; 99284; J1885

== ENCOUNTER 2016-08-17 20:31 | Emergency (ER) | payer OTHER, MEDICAID ==
[2016-08-17] MEDS ORDERED: IBUPROFEN 600 MG TAB PO ONE (20:52)
[2016-08-17] MEDS ORDERED: levETIRAcetam 500 MG TAB PO ONE (20:53)
[2016-08-17 21:00] VITALS: BP 149/92; PULSE 89; RESP 18; TEMP 97.2; O2SAT 94
--- NOTE | 2016-08-17 21:02 | EDPHY ---
H & P Stated Complaint: pt states he had a sz unable to afford medications Time Seen by Provider: 08/17/16 20:36 - Personal History Tetanus Vaccine Date: 2010 - Medical/Surgical History Hx Asthma: No Hx Chronic Respiratory Disease: Yes Hx Diabetes: No Hx Cardiac Disease: No Hx Renal Disease: No Hx Cirrhosis: No Hx Alcoholism: Yes Hx HIV/AIDS: No Hx Splenectomy or Spleen Trauma: No Other PMH: PMH: htn, depression/anxiety,chronic back pain. [id number]-fusion, [place],left knee,gastric bypass, COPD, epilepsy - Social History Smoking Status: Heavy smoker Allergies/Adverse Reactions: gabapentin Allergy (Verified 06/26/16 22:49) bee stings Allergy (Severe, Uncoded 03/23/16 23:31) Anaphylaxis Home Medications: Medication Instructions Recorded Lisinopril/Hctz 20/12.5MG 1 ea PO DAILY 08/01/16 [Zestoretic/Prinzide 20/12.5MG (*)] Medical Decision Making ED Course/Re-evaluation: CHIEF COMPLAINT: Seizure HISTORY OF PRESENT ILLNESS: Patient with a longstanding seizure disorder. He does not pay for his generic Keppra which caused him 10 dollar co-pay. Consequently continues to have seizures. He was just here yesterday with the same thing. In addition, this patient does pay for his Oxy code own which is the same co-pay because he has "priorities" REVIEW OF SYSTEMS: A 10 point review of systems was performed and is negative with the exception of the elements mentioned in the history of present illness. PHYSICAL EXAM: HR, BP, O2 Sat, RR. Temp noted General Appearance: Alert, well hydrated, appropriate, and non-toxic appearing. Head: Atraumatic without scalp tenderness or obvious injury Eyes: Pupils equal, round, reactive to light and accommodation, EOMI, no trauma , no injection. Ears: Clear bilaterally, no perforation, normal landmarks Nose: Atraumatic, no rhinorrhea, clear. Throat: There is no erythema or exudates, no lesions, normal tonsils, mucus membranes moist. Neck: Supple, 2+ carotid upstroke, nontender, no lymphadenopathy. Respiratory: No retractions, no distress, no wheezes, and no accessory muscle use. Lungs are clear to auscultation bilaterally. Cardiovascular: Regular rate and rhythm, no murmurs, rubs, or gallops. Bilateral carotid, radial, dorsalis pedis, and posterior tibial pulses intact. Good capillary refill all extremities. Gastrointestinal: Abdomen is soft, nontender, non-distended, no masses, no rebound, no guarding, no peritoneal signs. Musculoskeletal: Normal active ROM of all extremities, atraumatic. Neurological: Alert, appropriate, and interactive. The patient has normal DTRs and non-focal cranial nerves, motor, sensory, and cerebellar exam. Skin: No rashes, good turgor, no nodules on palpation. 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 MEDICAL DECISION MAKING: This patient is in no distress. He has no injuries from the recent seizure. I gave him his 500 mg of Keppra and he will show up here during case management hours during the week to see if we can help him figure out a better system for obtaining his medicines. The patient is comfortable with this plan and since he is at the [facility] he has no problem stopping by on Saturday. - Data Points Medications Given: Discontinued Medications Ibuprofen (Motrin) 600 mg PO EDNOW ONE Stop: 08/17/16 20:53 Last Admin: 08/17/16 20:57 Dose: 600 mg Levetiracetam (Keppra) 500 mg PO EDNOW ONE Stop: 08/17/16 20:54 Last Admin: 08/17/16 20:57 Dose: 500 mg Departure - Departure Disposition: Home, Routine, Self-Care Clinical Impression: Seizure Condition: Good Instructions: Epilepsy (ED) Referrals: Patient,NotPresent [Primary Care Provider] - As per Instructions
== END 2016-08-17 21:12 | disposition home or self-care (01) ==
LOC: EDUNIT#
DX: G40.909 Epilepsy, unspecified, not intractable, without status epilepticus (principal); J44.9 Chronic obstructive pulmonary disease, unspecified; I10 Essential (primary) hypertension; F17.200 Nicotine dependence, unspecified, uncomplicated

== ENCOUNTER 2016-08-18 22:42 | Emergency (ER) | payer OTHER, MEDICAID ==
[2016-08-18] MEDS ORDERED: NS 1,000 ML IV ONE (22:47)
--- NOTE | 2016-08-18 22:50 | EDPHY ---
H & P HPI/ROS: HPI CHIEF COMPLAINT: Seizure, left rib pain HISTORY OF PRESENT ILLNESS: This patient is a 51-year-old male significant past medical history for epilepsy, supposed be on Dilantin but has not been compliant with his seizure medications for months. He tells me they are too expensive. He did have alcohol to drink earlier today. Presents emergency room by EMS for left rib pain after sustaining a seizure and falling. Denies other areas of pain. Specifically denies head or neck pain. Denies abdominal pain chest pain or shortness of breath. He has left lateral lower rib pain. He is unsure when he fell on. Enroute by EMS he did receive 100 mcg IV fentanyl prior to arrival is feeling better. Past Medical History: Hypertension, asthma, seizure disorder, noncompliant with his meds, gastric bypass, degenerative disc disease Past Surgical History: Gastric bypass surgery, lumbar fusion Social History: Endorses alcohol this evening, smokes tobacco, no marijuana, denies other drugs. Family History: Noncontributory ROS REVIEW OF SYSTEMS: A comprehensive 10 point review of systems is otherwise negative aside from elements mentioned in the history of present illness. Exam Constitutional appears well nontoxic triage nursing summary reviewed, vital signs reviewed, awake/alert. Eyes normal conjunctivae and sclera, EOMI, PERRLA. HENT no oropharyngeal laceration. No tongue laceration. normal inspection, atraumatic, moist mucus membranes, no epistaxis, neck supple/ no meningismus, no raccoon eyes. Respiratory clear to auscultation bilaterally, normal breath sounds, no respiratory distress, no wheezing. Cardiovascular Chest wall: left sided: Tender palpation left lower lateral ribs. No crepitus. No flail chest. rate normal, regular rhythm, no murmur, no edema, distal pulses normal. Gastrointestinal soft, non-tender, no rebound, no guarding, normal bowel sounds, no distension, no pulsatile mass. Genitourinary no CVA tenderness. Musculoskeletal no midline vertebral tenderness, full range of motion, no calf swelling, no tenderness of extremities, no meningismus, good pulses, neurovascularly intact. Skin pink, warm, & dry, no rash, skin atraumatic. Neurologic awake, alert and oriented x 3, AAOx3, moves all 4 extremities equally, motor intact, sensory intact, CN II-XII intact, normal cerebellar, normal vision, normal speech. Psychiatric normal mood/affect. Heme/Lymph/Immune no lymphadenopathy. Differential Diagnosis: Includes but is not limited to in a particular order, breakthrough seizure, epilepsy, noncompliant with his seizure medication, rib contusions, rib fracture, pneumothorax. Medical Decision Making: Plan for this patient chest x-ray two view with rib series for the left rib pain. He is tender on exam. But no flail chest. Check basic blood work. Re-evaluation: 2358: Re-evaluation at this time. Patient resting comfortably. No complaints at this time. Phenytoin level noted. No seizure activity here blood work reviewed. Will give him oral phenytoin. Safe discharge. Alcohol level noted to be 248. However he is clinically sober. No ataxia normal gait. Safe for discharge. Source: Patient, EMS - Personal History Tetanus Vaccine Date: 2010 - Medical/Surgical History Hx Asthma: No Hx Chronic Respiratory Disease: Yes Hx Diabetes: No Hx Cardiac Disease: No Hx Renal Disease: No Hx Cirrhosis: No Hx Alcoholism: Yes Hx HIV/AIDS: No Hx Splenectomy or Spleen Trauma: No Other PMH: PMH: htn, depression/anxiety,chronic back pain. [id number]-fusion, rolanda,left knee,gastric bypass, COPD, epilepsy - Social History Smoking Status: Heavy smoker Constitutional: Initial Vital Signs Temperature (C) 36.8 C 08/18/16 22:45 Heart Rate 92 08/18/16 22:45 Respiratory Rate 18 08/18/16 22:45 Blood Pressure 123/88 H 08/18/16 22:45 O2 Sat (%) 95 08/18/16 22:45 O2 Delivery Mode Room Air Allergies/Adverse Reactions: gabapentin Allergy (Verified 08/18/16 22:55) bee stings Allergy (Severe, Uncoded 08/18/16 22:55) Anaphylaxis Home Medications: Medication Instructions Recorded Lisinopril/Hctz 20/12.5MG 1 ea PO DAILY 08/01/16 [Zestoretic/Prinzide 20/12.5MG (*)] Ipratropium/Albuterol [Duoneb (*)] 3 ml IH 08/18/16 Oxycodone HCl 5 mg PO 08/18/16 Phenytoin Sodium Extended 100 mg PO 08/18/16 [Dilantin] Medical Decision Making - Diagnostics Imaging Results: Imaging Impressions Ribs w/Chest X-Ray 08/18/16 22:47 Impression: 1. Old healed left rib fracture stable in appearance. No evidence for acute fracture. 2. No evidence for acute cardiopulmonary abnormality. - Data Points Laboratory Results: Laboratory Results 08/18/16 22:47 08/18/16 22:47 08/18/16 08/18/16 22:47 22:47 WBC 7.08 10^3/uL 10^3/uL (3.80-9.50) RBC 5.40 10^6/uL 10^6/uL (4.40-6.38) Hgb 14.0 g/dL g/dL (13.7-17.5) Hct 43.2 % % (40.0-51.0) MCV 80.0 fL L fL (81.5-99.8) MCH 25.9 pg L pg (27.9-34.1) MCHC 32.4 g/dL g/dL (32.4-36.7) RDW 16.9 % H % (11.5-15.2) Plt Count 276 10^3/uL 10^3/uL (150-400) MPV 10.0 fL fL (8.7-11.7) Neut % (Auto) 61.8 % % (39.3-74.2) Lymph % (Auto) 28.7 % % (15.0-45.0) [place] % (Auto) 6.9 % % (4.5-13.0) Eos % (Auto) 1.6 % % (0.6-7.6) Baso % (Auto) 0.6 % % (0.3-1.7) Nucleat RBC Rel Count 0.0 % % (0.0-0.2) Absolute Neuts (auto) 4.38 10^3/uL 10^3/uL (1.70-6.50) Absolute Lymphs (auto) 2.03 10^3/uL 10^3/uL (1.00-3.00) Absolute Monos (auto) 0.49 10^3/uL 10^3/uL (0.30-0.80) Absolute Eos (auto) 0.11 10^3/uL 10^3/uL (0.03-0.40) Absolute Basos (auto) 0.04 10^3/uL 10^3/uL (0.02-0.10) Absolute Nucleated RBC 0.00 10^3/uL 10^3/uL (0-0.01) Immature Gran % 0.4 % % (0.0-1.1) Immature Gran # 0.03 10^3/uL 10^3/uL (0.00-0.10) Sodium 147 mEq/L H mEq/L (134-144) Potassium 3.7 mEq/L mEq/L (3.5-5.2) Chloride 110 mEq/L mEq/L (97-110) Carbon Dioxide 18 mEq/l L mEq/l (22-31) Anion Gap 19 mEq/L H mEq/L (8-16) BUN 9 mg/dL mg/dL (7-23) Creatinine 0.8 mg/dL mg/dL (0.7-1.3) Estimated GFR > 60 Glucose 72 mg/dL mg/dL (70-100) Calcium 9.0 mg/dL mg/dL (8.5-10.4) Phenytoin 6.2 mcg/mL L mcg/mL (10.0-20.0) Ethyl Alcohol 248 mg/dL H mg/dL (0-10) Medications Given: Discontinued Medications Sodium Chloride (Ns) 1,000 mls @ 0 mls/hr IV ONCE ONE; Wide Open PRN Reason: Protocol Stop: 08/18/16 22:48 Last Admin: 08/18/16 23:00 Dose: 1,000 mls Ibuprofen (Motrin) 800 mg PO EDNOW ONE Stop: 08/18/16 23:12 Last Admin: 08/18/16 23:11 Dose: 800 mg Departure - Departure Disposition: Home, Routine, Self-Care Clinical Impression: Alcohol intoxication Qualifiers: Complication of substance-induced condition: uncomplicated Qualified Code(s): F10.920 - Alcohol use, unspecified with intoxication, uncomplicated Condition: Good Instructions: Alcohol Intoxication (ED) Referrals: NONE *PRIMARY CARE P,. [Primary Care Provider] - As per Instructions [facility],. [Clinic] - As per Instructions
[2016-08-18 22:55] VITALS: TEMP 98.2
[2016-08-18 22:58] LABS: % IMMATURE GRANULYOCYTES 0.4 % (0.0-1.1); ABSOLUTE IMMATURE GRANULOCYTES 0.03 10^3/uL (0.00-0.10); ADD DIFF? NO; ADD MORPH? NO; ADD SCAN? NO; ATYPICAL LYMPHOCYTE FLAG 0 (0-99); FRAGMENT RBC FLAG 0 (0-99); HEMATOCRIT 43.2 % (40.0-51.0); LEFT SHIFT FLG 0 (0-99); LIPEMIA HEMOLYSIS FLAG 80 (0-99); MEAN CELL HEMOGLOBIN 25.9 pg (27.9-34.1); MEAN CELL HEMOGLOBIN CONCENTR. 32.4 g/dL (32.4-36.7); PLATELET CLUMPS FLAG 10 (0-99); PLATELET COUNT 276 10^3/uL (150-400); RED CELL DISTRIBUTION WIDTH 16.9 % (11.5-15.2)
[2016-08-18] MEDS ORDERED: IBUPROFEN 200 MG TAB PO ONE (23:08)
[2016-08-18] MEDS ORDERED: IBUPROFEN 600 MG TAB PO ONE ×2 (23:08→23:11)
[2016-08-18 23:14] LABS: ANION GAP 19 mEq/L (8-16); CARBON DIOXIDE 18 mEq/l (22-31); CHLORIDE 110 mEq/L (97-110); CREATININE 0.8 mg/dL (0.7-1.3); ETHANOL SERUM 248 mg/dL (0-10); GLOMERULAR FILTRATION RATE > 60; GLUCOSE 72 mg/dL (70-100); POTASSIUM 3.7 mEq/L (3.5-5.2); SODIUM 147 mEq/L (134-144)
[2016-08-19] MEDS: PHENYTOIN SODIUM EXTENDED 100 MG CAP PO ONE ×2 (00:10→00:58)
[2016-08-19 00:11] VITALS: BP 136/77; PULSE 85; RESP 16; O2SAT 98
[2016-08-19] MEDS ORDERED: CHLORDIAZEPOXIDE 25MG PREPK#6 BTL TAKEHOME ONE ×2 (00:47→00:49)
== END 2016-08-19 00:10 | disposition home or self-care (01) ==
LOC: EDUNIT#
DX: F10.920 Alcohol use, unspecified with intoxication, uncomplicated (principal); E86.9 Volume depletion, unspecified; F17.200 Nicotine dependence, unspecified, uncomplicated; I10 Essential (primary) hypertension; J44.9 Chronic obstructive pulmonary disease, unspecified; W18.39XA Other fall on same level, initial encounter; Y99.8 Other external cause status; Y93.89 Activity, other specified
CPT/HCPCS: G0480

== ENCOUNTER 2016-08-21 10:12 | Emergency (ER) | payer OTHER, MEDICAID ==
[~2016-08-21 10:12] MED LIST changes: -FLUMAZENIL 0.5 MG/5 ML MDV IVP ONE; -LIDOCAINE 1% 300 MG/30 ML SDV ONE; -MIDAZOLAM 2 MG/2 ML VIAL ONE; -NALOXONE HCL 0.4 MG/ML INJ ONE; -NS 1,000 ML IV SCH; +PHENYTOIN SODIUM EXTENDED 100 MG CAP PO SCH; -fentaNYL 100 MCG/2 ML INJ ONE
[2016-08-21 10:23] VITALS: TEMP 98.6
[2016-08-21] MEDS ORDERED: NS 1,000 ML IV ONE (10:43)
[2016-08-21 10:47] LABS: % IMMATURE GRANULYOCYTES 0.2 % (0.0-1.1); ABSOLUTE IMMATURE GRANULOCYTES 0.02 10^3/uL (0.00-0.10); ADD DIFF? NO; ADD MORPH? NO; ADD SCAN? NO; ATYPICAL LYMPHOCYTE FLAG 20 (0-99); FRAGMENT RBC FLAG 0 (0-99); HEMATOCRIT 39.2 % (40.0-51.0); HEMOGLOBIN 12.9 g/dL (13.7-17.5); LEFT SHIFT FLG 20 (0-99); LIPEMIA HEMOLYSIS FLAG 80 (0-99); MEAN CELL HEMOGLOBIN 26.3 pg (27.9-34.1); MEAN CELL HEMOGLOBIN CONCENTR. 32.9 g/dL (32.4-36.7); PLATELET CLUMPS FLAG 10 (0-99); PLATELET COUNT 234 10^3/uL (150-400); RED CELL DISTRIBUTION WIDTH 16.6 % (11.5-15.2)
[2016-08-21] MEDS ORDERED: LORazepam 2 MG/ML INJ IVP ONE (10:52)
[2016-08-21] MEDS ORDERED: LORazepam 2 MG/ML INJ ONE (10:53)
[2016-08-21 11:00] LABS: ANION GAP 17 mEq/L (8-16); CALCIUM 8.5 mg/dL (8.5-10.4); CARBON DIOXIDE 16 mEq/l (22-31); CHLORIDE 107 mEq/L (97-110); CREATININE 0.7 mg/dL (0.7-1.3); GLOMERULAR FILTRATION RATE > 60; GLUCOSE 104 mg/dL (70-100); POTASSIUM 3.4 mEq/L (3.5-5.2); SODIUM 140 mEq/L (134-144)
--- NOTE | 2016-08-21 13:12 | EDPHY ---
H & P Time Seen by Provider: 08/21/16 10:41 HPI/ROS: CHIEF COMPLAINT: Seizure HISTORY OF PRESENT ILLNESS: 51-year-old male presents to the emergency department by ambulance after having a seizure. The patient has a known history of epilepsy and takes Dilantin, however he is unable to fill his prescription for his Dilantin because he lost his Medicaid. Apparently this was witnessed today. He did not sustain any trauma or injury. No headache. No neck pain. Patient has chronic low back pain and has had surgery. Denies injury to upper lower extremities. Was not incontinent of urine. He did not bite his tongue. REVIEW OF SYSTEMS: Constitutional: No fever, no chills. Eyes: No double or blurry vision. ENT: No sore throat. Respiratory: No cough, no shortness of breath. Cardiac: No chest pain. Gastrointestinal: No abdominal pain, vomiting or diarrhea. Genitourinary: No dysuria. Musculoskeletal: No neck or back pain. Skin: No rashes. Neurological: No headache. Past Medical/Surgical History: Epilepsy, chronic back pain, back surgery, alcoholism Social History: Homeless Smoking Status: Heavy smoker Physical Exam: General Appearance: Alert, no distress. Mentating normally and answering questions appropriately. Eyes: Pupils equal and round. Extraocular motions are all intact. ENT: Mouth: Mucous membranes moist. No tongue abrasion or laceration. Respiratory: No wheezing, rhonchi, or rales, lungs are clear to auscultation. Cardiovascular: Regular rate and rhythm. Gastrointestinal: Abdomen is soft and nontender, no masses, no rebound or guarding, bowel sounds normal. Neurological: Alert and oriented x 3, cranial nerves II through XII grossly intact Skin: Warm and dry, no rashes. Musculoskeletal: Nontender to palpate along the cervical, thoracic or lumbar spine. Neck is supple. Extremities: Full range of motion and no peripheral edema. Psychiatric: Patient is oriented X 3, there is no agitation. Constitutional: Initial Vital Signs Temperature (C) 37.0 C 08/21/16 10:12 Heart Rate 103 H 08/21/16 10:12 Respiratory Rate 16 08/21/16 10:12 Blood Pressure 134/105 H 08/21/16 10:12 O2 Sat (%) 92 08/21/16 10:12 O2 Delivery Mode Room Air O2 (L/minute) 2 Allergies/Adverse Reactions: gabapentin Allergy (Verified 08/18/16 22:55) bee stings Allergy (Severe, Uncoded 08/18/16 22:55) Anaphylaxis Home Medications: Medication Instructions Recorded Lisinopril/Hctz 20/12.5MG 1 ea PO DAILY 08/01/16 [Zestoretic/Prinzide 20/12.5MG (*)] Ipratropium/Albuterol [Duoneb (*)] 3 ml IH 08/18/16 Oxycodone HCl 5 mg PO 08/18/16 Phenytoin Sodium Extended 100 mg PO 08/18/16 [Dilantin] Phenytoin Sodium Extended 300 mg PO DAILY #9 capsule 08/21/16 [Dilantin] Medical Decision Making ED Course/Re-evaluation: 51-year-old male presents to the emergency department after having a witnessed seizure. He sustained no new injuries. The patient was given 300 mg of Dilantin orally which is his normal dose and was given a prescription for to be used daily for the next few days. [facility] and they will help to fill his Dilantin. His Dilantin level today was less than 3. The remainder of his laboratories tests were otherwise unremarkable with the exception of CO2 slightly low at 16. Differential Diagnosis: Seizure including but not limited to electrolyte abnormality, alcohol withdrawal , medication noncompliance, head injury, and breakthrough seizure. - Data Points Laboratory Results: Laboratory Results 08/21/16 10:24 08/21/16 10:24 08/21/16 08/21/16 08/21/16 Unknown 10:24 10:24 WBC 9.57 10^3/uL H 10^3/uL (3.80-9.50) RBC 4.90 10^6/uL 10^6/uL (4.40-6.38) Hgb 12.9 g/dL L g/dL (13.7-17.5) Hct 39.2 % L % (40.0-51.0) MCV 80.0 fL L fL (81.5-99.8) MCH 26.3 pg L pg (27.9-34.1) MCHC 32.9 g/dL g/dL (32.4-36.7) RDW 16.6 % H % (11.5-15.2) Plt Count 234 10^3/uL 10^3/uL (150-400) MPV 10.0 fL fL (8.7-11.7) Neut % (Auto) 77.3 % H % (39.3-74.2) Lymph % (Auto) 16.6 % % (15.0-45.0) [place] % (Auto) 5.0 % % (4.5-13.0) Eos % (Auto) 0.5 % L % (0.6-7.6) Baso % (Auto) 0.4 % % (0.3-1.7) Nucleat RBC Rel Count 0.0 % % (0.0-0.2) Absolute Neuts (auto) 7.39 10^3/uL H 10^3/uL (1.70-6.50) Absolute Lymphs (auto) 1.59 10^3/uL 10^3/uL (1.00-3.00) Absolute Monos (auto) 0.48 10^3/uL 10^3/uL (0.30-0.80) Absolute Eos (auto) 0.05 10^3/uL 10^3/uL (0.03-0.40) Absolute Basos (auto) 0.04 10^3/uL 10^3/uL (0.02-0.10) Absolute Nucleated RBC 0.00 10^3/uL 10^3/uL (0-0.01) Immature Gran % 0.2 % % (0.0-1.1) Immature Gran # 0.02 10^3/uL 10^3/uL (0.00-0.10) Sodium 140 mEq/L mEq/L (134-144) Potassium 3.4 mEq/L L mEq/L (3.5-5.2) Chloride 107 mEq/L mEq/L (97-110) Carbon Dioxide 16 mEq/l L mEq/l (22-31) Anion Gap 17 mEq/L H mEq/L (8-16) BUN 14 mg/dL mg/dL (7-23) Creatinine 0.7 mg/dL mg/dL (0.7-1.3) Estimated GFR > 60 Glucose 104 mg/dL H mg/dL (70-100) Calcium 8.5 mg/dL mg/dL (8.5-10.4) Phenytoin < 3.0 mcg/mL L mcg/mL (10.0-20.0) Medications Given: Discontinued Medications Sodium Chloride (Ns) 1,000 mls @ 0 mls/hr IV ONCE ONE PRN Reason: Wide Open Stop: 08/21/16 10:44 Last Admin: 08/21/16 10:51 Dose: 1,000 mls Lorazepam (Ativan Injection) 1 mg IVP EDNOW ONE Stop: 08/21/16 10:53 Last Admin: 08/21/16 10:56 Dose: 1 mg Phenytoin Sodium (Dilantin) 300 mg PO EDNOW ONE Stop: 08/21/16 14:02 Last Admin: 08/21/16 15:00 Dose: 300 mg Departure - Departure Disposition: Home, Routine, Self-Care Clinical Impression: Epilepsy Qualifiers: Epilepsy type: unspecified Intractability: not intractable Status epilepticus: without status epilepticus Qualified Code(s): G40.909 - Epilepsy, unspecified, not intractable, without status epilepticus Condition: Good Instructions: Epilepsy (ED) Additional Instructions: You should take your dilantin as prescribed. Return if you developed recurring seizures or if you feel worse in any way. You should not drive a car until cleared by a neurologist. You have an appointment at the [facility] on Thursday 08/24 @ 10:45 AM. We will give you enough medication until then. You need to go to the [facility] at 5PM and talk to your director case management Diony. Referrals: Yuri Garcia MD [Medical Doctor] - As per Instructions (Neurologist on-call) [facility],. [Clinic] - As per Instructions Prescriptions: Phenytoin Sodium Extended [Dilantin] 300 mg PO DAILY #9 capsule
[2016-08-21] MEDS ORDERED: PHENYTOIN SODIUM EXTENDED 100 MG CAP PO ONE (14:01)
[2016-08-21 15:05] VITALS: BP 146/84; PULSE 89; RESP 16; O2SAT 92
== END 2016-08-21 15:02 | disposition home or self-care (01) ==
LOC: EDUNIT#
DX: G40.909 Epilepsy, unspecified, not intractable, without status epilepticus (principal); F17.200 Nicotine dependence, unspecified, uncomplicated
CPT/HCPCS: 96361; 96374; 99284; J2060

== ENCOUNTER 2016-08-23 05:48 | Emergency (ER) | payer OTHER, MEDICAID ==
[2016-08-23 06:03] VITALS: RESP 16; TEMP 98.2
[2016-08-23 06:11] LABS: ADD DIFF? NO; ADD MORPH? NO; ADD SCAN? NO; ATYPICAL LYMPHOCYTE FLAG 30 (0-99); FRAGMENT RBC FLAG 0 (0-99); HEMATOCRIT 41.5 % (40.0-51.0); HEMOGLOBIN 13.3 g/dL (13.7-17.5); LEFT SHIFT FLG 0 (0-99); LIPEMIA HEMOLYSIS FLAG 80 (0-99); MEAN CELL HEMOGLOBIN 26.1 pg (27.9-34.1); MEAN CELL VOLUME 81.5 fL (81.5-99.8); MEAN PLATELET VOLUME 9.8 fL (8.7-11.7); PLATELET CLUMPS FLAG 0 (0-99); PLATELET COUNT 182 10^3/uL (150-400); RED BLOOD CELL COUNT 5.09 10^6/uL (4.40-6.38); RED CELL DISTRIBUTION WIDTH 17.2 % (11.5-15.2)
--- NOTE | 2016-08-23 06:20 | EDPHY ---
H & P Stated Complaint: SI, injected 180mg Lovenox Source: Patient, EMS, Old records Exam Limitations: No limitations - Personal History Current Tetanus/Diphtheria Vaccine: Yes Current Tetanus Diphtheria and Acellular Pertussis (TDAP): Yes Tetanus Vaccine Date: 2010 - Medical/Surgical History Hx Asthma: No Hx Chronic Respiratory Disease: Yes Hx Diabetes: No Hx Cardiac Disease: No Hx Renal Disease: No Hx Cirrhosis: No Hx Alcoholism: Yes Hx HIV/AIDS: No Hx Splenectomy or Spleen Trauma: No Other PMH: PMH: htn, depression/anxiety,chronic back pain. [id number]-fusion, rolanda,left knee,gastric bypass, COPD, epilepsy, ETOH - Social History Smoking Status: Heavy smoker Time Seen by Provider: 08/23/16 05:51 HPI/ROS: HPI The patient presents brought in by ambulance after suicide attempt. At approximately 4:30 a.m. this morning he was walking down the street and found 3 syringes of Lovenox. He injected these about 6 times into his arms in an effort to end his life. He says he has been feeling suicidal intermittently for the last several years. He says he has lost everything including his family. He has attempted suicide before, the last time about 1 year ago when he took vodka and lisinopril. He is complaining of left-sided lower rib pain after a fall a few days ago. He was seen in the emergency room yesterday for possible alcohol withdrawal seizure. REVIEW OF SYSTEMS Constitutional: No fever, no chills. Eyes: No discharge. ENT: No sore throat. Cardiovascular: No chest pain, no palpitations. Respiratory: No cough, no shortness of breath. Gastrointestinal: No abdominal pain, no vomiting. Genitourinary: No hematuria. Musculoskeletal: No back pain. Skin: No rashes. Neurological: No headache. PMHx: COPD, alcohol abuse, tobacco abuse, chronic opioid dependency in lower back pain, bipolar disorder Soc Hx: Homeless, lives in a mcc, alcohol abuse PHYSICAL General Appearance: Alert, no distress Eyes: Pupils equal and round no pallor or injection ENT, Mouth: Mucous membranes moist Respiratory: There are no retractions, lungs are clear to auscultation Cardiovascular: Regular rate and rhythm Gastrointestinal: Abdomen is soft and non-tender, no masses, bowel sounds normal Neurological: A&O, moves all extremities Skin: Warm and dry, multiple abrasions of his upper extremities Musculoskeletal: Neck is supple non tender Extremities: symmetrical, full range of motion Psychiatric: Patient is oriented X 3, there is no agitation (Lor Patricia) Constitutional: Initial Vital Signs Temperature (C) 36.8 C 08/23/16 05:59 Heart Rate 103 H 08/23/16 05:59 Respiratory Rate 16 08/23/16 05:59 Blood Pressure 138/115 H 08/23/16 05:59 O2 Sat (%) 96 08/23/16 05:59 O2 Delivery Mode Room Air Allergies/Adverse Reactions: gabapentin Allergy (Verified 08/23/16 05:58) bee stings Allergy (Severe, Uncoded 08/23/16 05:58) Anaphylaxis Home Medications: Medication Instructions Recorded Lisinopril/Hctz 20/12.5MG 1 ea PO DAILY 08/01/16 [Zestoretic/Prinzide 20/12.5MG (*)] Ipratropium/Albuterol [Duoneb (*)] 3 ml IH 08/18/16 Oxycodone HCl 5 mg PO 08/18/16 Phenytoin Sodium Extended 100 mg PO 08/18/16 [Dilantin] Phenytoin Sodium Extended 300 mg PO DAILY #9 capsule 08/21/16 [Dilantin] Medical Decision Making ED Course/Re-evaluation: I took over care of this patient at 7:00 a.m.. The patient has been medically cleared. The patient is awaiting behavioral health evaluation. Patient is here for suicidal ideation and bipolar disorder. Please see Dr. Patricia' note for further details. 10:45 a.m., patient seen and evaluated by Behavioral Health, [facility]. He is a [facility] client. He has been cleared for discharge from their standpoint. He is not suicidal. They have arranged for follow-up at 1 of his clinics. I will also work with him to find an appropriate detox program. He is declining going to the [facility] at this time. He feels comfortable being discharged to home. He will be closely followed by [facility]. Return to emergency department precautions were reviewed with him. All of his questions were answered. He understands his follow-up. He was discharged in good condition. (Renetta Do) Differential Diagnosis: This is a 51-year-old man with bipolar disorder, alcohol abuse, COPD who presents brought in by ambulance from his [facility] after injecting Lovenox syringes, 3 of them, total of 180 mg which he found on the street in an effort and his life. He is on an M1 hold as placed by police. On exam, he is well- appearing, he does not have any signs of hemorrhage. I doubt any serious sequelae of this ingestion. Differential diagnosis includes suicidality related to bipolar disorder, alcohol withdrawal, polysubstance abuse. In the emergency room, the patient's rib pain was treated with a lidocaine patch. He has had previous imaging showing no fracture. At change of shift, the case will be signed out to the oncoming provider Dr. Do pending mental health evaluation. (Lor Patricia) - Data Points Laboratory Results: Laboratory Results 08/23/16 06:04 08/23/16 06:04 08/23/16 08/23/16 08/23/16 06:20 06:04 06:04 WBC 3.85 10^3/uL 10^3/uL (3.80-9.50) RBC 5.09 10^6/uL 10^6/uL (4.40-6.38) Hgb 13.3 g/dL L g/dL (13.7-17.5) Hct 41.5 % % (40.0-51.0) MCV 81.5 fL fL (81.5-99.8) MCH 26.1 pg L pg (27.9-34.1) MCHC 32.0 g/dL L g/dL (32.4-36.7) RDW 17.2 % H % (11.5-15.2) Plt Count 182 10^3/uL D 10^3/uL (150-400) MPV 9.8 fL fL (8.7-11.7) Neut % (Auto) 53.6 % % (39.3-74.2) Lymph % (Auto) 35.8 % % (15.0-45.0) [place] % (Auto) 7.5 % % (4.5-13.0) Eos % (Auto) 2.3 % % (0.6-7.6) Baso % (Auto) 0.8 % % (0.3-1.7) Nucleat RBC Rel Count 0.0 % % (0.0-0.2) Absolute Neuts (auto) 2.06 10^3/uL 10^3/uL (1.70-6.50) Absolute Lymphs (auto) 1.38 10^3/uL 10^3/uL (1.00-3.00) Absolute Monos (auto) 0.29 10^3/uL L 10^3/uL (0.30-0.80) Absolute Eos (auto) 0.09 10^3/uL 10^3/uL (0.03-0.40) Absolute Basos (auto) 0.03 10^3/uL 10^3/uL (0.02-0.10) Absolute Nucleated RBC 0.00 10^3/uL 10^3/uL (0-0.01) Immature Gran % 0.0 % % (0.0-1.1) Immature Gran # 0.00 10^3/uL 10^3/uL (0.00-0.10) Sodium 146 mEq/L H mEq/L (134-144) Potassium 3.7 mEq/L mEq/L (3.5-5.2) Chloride 112 mEq/L H mEq/L (97-110) Carbon Dioxide 20 mEq/l L mEq/l (22-31) Anion Gap 14 mEq/L mEq/L (8-16) BUN 6 mg/dL L mg/dL (7-23) Creatinine 0.7 mg/dL mg/dL (0.7-1.3) Estimated GFR > 60 Glucose 74 mg/dL mg/dL (70-100) Calcium 8.5 mg/dL mg/dL (8.5-10.4) Urine Opiates Screen NEGATIVE (NEGATIVE) Urine Barbiturates NON-NEGATIVE H (NEGATIVE) Ur Phencyclidine Scrn NEGATIVE (NEGATIVE) Ur Amphetamine Screen NEGATIVE (NEGATIVE) U Benzodiazepines Scrn NON-NEGATIVE H (NEGATIVE) Urine Cocaine Screen NEGATIVE (NEGATIVE) U Marijuana (THC) Screen NON-NEGATIVE H (NEGATIVE) Ethyl Alcohol 104 mg/dL H mg/dL (0-10) Medications Given: Discontinued Medications Chlordiazepoxide HCl (Librium) 50 mg PO EDNOW ONE Stop: 08/23/16 06:26 Last Admin: 08/23/16 06:30 Dose: 50 mg Lorazepam (Ativan) 1 mg PO EDNOW ONE Stop: 08/23/16 08:53 Last Admin: 08/23/16 08:55 Dose: 1 mg Oxycodone/Acetaminophen (Percocet 5/325) 1 tab PO EDNOW ONE Stop: 08/23/16 07:47 Last Admin: 08/23/16 08:38 Dose: Not Given Phenytoin Sodium (Dilantin) 300 mg PO EDNOW ONE Stop: 08/23/16 06:29 Last Admin: 08/23/16 06:42 Dose: 300 mg Departure - Departure Disposition: Home, Routine, Self-Care Clinical Impression: Suicidal ideation, Alcoholism Overdose Qualifiers: Encounter type: initial encounter Injury intent: intentional self-harm Qualified Code(s): T50.902A - Poisoning by unspecified drugs, medicaments and biological substances, intentional self-harm, initial encounter Bipolar disorder Qualifiers: Active/Remission status: currently active Current bipolar episode type: mixed Current episode severity: unspecified Qualified Code(s): F31.60 - Bipolar disorder, current episode mixed, unspecified Condition: Good Instructions: Depression (ED), Abuse of Alcohol (ED) Additional Instructions: Read and follow provided instructions. Follow-up with [facility] as discussed within the next 1-2 days. They will work with you to find detox program options. Return to the emergency department for worsening depression, suicidal thoughts or other serious concerns. Referrals: Mandie Hwoard [Primary Care Provider] - As per Instructions [facility] [Outside] - As per Instructions
[2016-08-23] MEDS ORDERED: LIDOCAINE 5% 1 EA PATCH TD ONE (06:23)
[2016-08-23] MEDS ORDERED: chlordiazePOXIDE 25 MG CAP PO ONE (06:25)
[2016-08-23] MEDS ORDERED: chlordiazePOXIDE 25 MG CAP ONE (06:28)
[2016-08-23] MEDS ORDERED: PHENYTOIN SODIUM EXTENDED 100 MG CAP PO ONE (06:28)
[2016-08-23 06:30] LABS: ANION GAP 14 mEq/L (8-16); CALCIUM 8.5 mg/dL (8.5-10.4); CARBON DIOXIDE 20 mEq/l (22-31); CHLORIDE 112 mEq/L (97-110); CREATININE 0.7 mg/dL (0.7-1.3); ETHANOL SERUM 104 mg/dL (0-10); GLOMERULAR FILTRATION RATE > 60; GLUCOSE 74 mg/dL (70-100); POTASSIUM 3.7 mEq/L (3.5-5.2); SODIUM 146 mEq/L (134-144)
[2016-08-23] MEDS: OXYCODONE/APAP 5/325 TAB PO ONE ×2 (07:49→08:38)
[2016-08-23] MEDS ORDERED: LORazepam 1 MG TAB PO ONE (08:52)
[2016-08-23] MEDS ORDERED: LIDOCAINE 5% 1 EA PATCH TD SCH (09:00)
[2016-08-23] MEDS ORDERED: OXYCODONE/APAP 5/325 TAB PO ONE (10:44)
[2016-08-23 11:16] VITALS: BP 158/93; PULSE 99; O2SAT 96
[2016-08-23] MEDS ORDERED: PATCH REMOVAL 1 EA PATCH TD SCH (21:00)
== END 2016-08-23 11:30 | disposition home or self-care (01) ==
LOC: EDUNIT#
DX: R45.851 Suicidal ideations (principal); T45.512A Poisoning by anticoagulants, intentional self-harm, initial encounter; F31.60 Bipolar disorder, current episode mixed, unspecified; F10.10 Alcohol abuse, uncomplicated; I10 Essential (primary) hypertension; J44.9 Chronic obstructive pulmonary disease, unspecified; F17.200 Nicotine dependence, unspecified, uncomplicated
CPT/HCPCS: 80305; G0480

== ENCOUNTER 2016-08-23 22:52 | Emergency (ER) | payer OTHER, MEDICAID ==
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
[2016-08-23] MEDS ORDERED: NS 1,000 ML IV ONE (23:10)
[2016-08-23 23:17] LABS: % IMMATURE GRANULYOCYTES 0.3 % (0.0-1.1); ABSOLUTE IMMATURE GRANULOCYTES 0.02 10^3/uL (0.00-0.10); ABSOLUTE NRBC COUNT 0.02 10^3/uL (0-0.01); ADD DIFF? NO; ADD MORPH? NO; ADD SCAN? NO; ATYPICAL LYMPHOCYTE FLAG 0 (0-99); FRAGMENT RBC FLAG 0 (0-99); HEMATOCRIT 41.4 % (40.0-51.0); HEMOGLOBIN 13.3 g/dL (13.7-17.5); LEFT SHIFT FLG 0 (0-99); LIPEMIA HEMOLYSIS FLAG 80 (0-99); MEAN CELL HEMOGLOBIN 26.4 pg (27.9-34.1); MEAN CELL HEMOGLOBIN CONCENTR. 32.1 g/dL (32.4-36.7); MEAN CELL VOLUME 82.1 fL (81.5-99.8); MEAN PLATELET VOLUME 10.4 fL (8.7-11.7); NRBC-AUTO% 0.3 % (0.0-0.2); PLATELET CLUMPS FLAG 30 (0-99); PLATELET COUNT 189 10^3/uL (150-400); RED BLOOD CELL COUNT 5.04 10^6/uL (4.40-6.38); RED CELL DISTRIBUTION WIDTH 17.2 % (11.5-15.2)
--- NOTE | 2016-08-23 23:18 | CPEKG ---
Heart Rate: 69 RR Interval: 870 P-R Interval: 140 QRSD Interval: 88 QT Interval: 424 QTC Interval: 455 P Ione: 33 QRS Ione: 49 T Wave Ione: 72 EKG Severity - BORDERLINE ECG - EKG Impression: SINUS RHYTHM EKG Impression: LOW VOLTAGE THROUGHOUT Electronically Signed By: Lor Patricia 24-Aug-2016 07:29:04
[2016-08-23 23:27] LABS: ALANINE AMINOTRANSFERASE 35 IU/L (21-72); ALBUMIN 3.8 g/dL (3.5-5.0); ALKALINE PHOSPHATASE 153 IU/L (38-126); ANION GAP 17 mEq/L (8-16); ASPARTATE AMINOTRANSFERASE 27 IU/L (17-59); BILIRUBIN,TOTAL 0.5 mg/dL (0.1-1.4); CALCIUM 8.4 mg/dL (8.5-10.4); CARBON DIOXIDE 19 mEq/l (22-31); CHLORIDE 111 mEq/L (97-110); CREATININE 0.7 mg/dL (0.7-1.3); GLOMERULAR FILTRATION RATE > 60; GLUCOSE 89 mg/dL (70-100); POTASSIUM 3.2 mEq/L (3.5-5.2); SODIUM 147 mEq/L (134-144); TOTAL PROTEIN 6.3 g/dL (6.3-8.2)
[2016-08-23 23:37] LABS: ETHANOL SERUM 440 mg/dL (0-10)
[2016-08-24 01:05] VITALS: TEMP 97.9
[2016-08-24 03:23] VITALS: RESP 16
[2016-08-24 06:30] VITALS: BP 127/74; PULSE 74; O2SAT 96
== END 2016-08-24 06:31 | disposition home or self-care (01) ==
LOC: EDUNIT#
DX: R41.82 Altered mental status, unspecified (principal); F10.921 Alcohol use, unspecified with intoxication delirium; F17.200 Nicotine dependence, unspecified, uncomplicated; I10 Essential (primary) hypertension; J44.9 Chronic obstructive pulmonary disease, unspecified
CPT/HCPCS: 80305; 82947-QW; G0480

== ENCOUNTER 2016-08-24 19:35 | Emergency (ER) | payer OTHER, MEDICAID ==
[2016-08-24] MEDS ORDERED: LORazepam 2 MG/ML INJ ONE (19:55)
[2016-08-24] MEDS ORDERED: NS 1,000 ML IV ONE (19:56)
[2016-08-24] MEDS ORDERED: IPRATROPIUM/ALBUTEROL 3 ML DEYVIAL IH ONE (19:56)
[2016-08-24] MEDS ORDERED: LORazepam 2 MG/ML INJ IVP ONE ×2 (19:56→21:25)
--- NOTE | 2016-08-24 19:56 | EDPHY ---
H & P Time Seen by Provider: 08/24/16 19:45 HPI/ROS: CHIEF COMPLAINT: Alcohol withdrawal HISTORY OF PRESENT ILLNESS: The patient is a 51-year-old male with history of alcohol abuse, well known to this ED/ Patient comes from the [facility] with alcohol withdrawal. His last drink was last night. He states he feels like he is going to have a seizure. He is seeing an aura and has a tremor. He states Librium does not help his withdrawal symptoms. The patient is trying to stop drinking and turn his life around. Patient has a chronic cough from smoking cigarettes. He denies any upper respiratory changes. REVIEW OF SYSTEMS: A comprehensive 10 point review of systems is otherwise negative aside from elements mentioned in the history of present illness. Past Medical/Surgical History: Alcohol abuse, Chronic back pain, COPD, HTN, Anxiety, Depression, S1-S2 fusion, Epilepsy. Social History: Heavy alcohol use. Smoking Status: Heavy smoker Physical Exam: General Appearance: Alert, pleasant Eyes: Pupils equal and round, no conjunctival pallor or injection ENT, Mouth: Mucous membranes moist Neck: Normal inspection Respiratory: Diffuse expiratory wheezing Cardiovascular: Regular rate and rhythm Gastrointestinal: Abdomen is soft and non-tender Neurological: A&O, nonfocal, normal gait, resting tremor Skin: Warm and dry, no rash Extremities: Nontender, no pedal edema Psychiatric: Anxious appearing Constitutional: Initial Vital Signs Temperature (C) 36.8 C 08/24/16 19:36 Heart Rate 120 H 08/24/16 19:36 Respiratory Rate 18 08/24/16 19:36 Blood Pressure 143/101 H 08/24/16 19:36 O2 Sat (%) 96 08/24/16 19:36 O2 Delivery Mode Room Air Allergies/Adverse Reactions: gabapentin Allergy (Verified 08/23/16 05:58) bee stings Allergy (Severe, Uncoded 08/23/16 05:58) Anaphylaxis Home Medications: Medication Instructions Recorded Lisinopril/Hctz 20/12.5MG 1 ea PO DAILY 08/01/16 [Zestoretic/Prinzide 20/12.5MG (*)] Ipratropium/Albuterol [Duoneb (*)] 3 ml IH 08/18/16 Oxycodone HCl 5 mg PO 08/18/16 Phenytoin Sodium Extended 100 mg PO 08/18/16 [Dilantin] Phenytoin Sodium Extended 300 mg PO DAILY #9 capsule 08/21/16 [Dilantin] Medical Decision Making ED Course/Re-evaluation: This patient presents in alcohol withdrawal with a resting tremor and the aura of a seizure. Ativan 1 mg IV x 2 given with relief in symptoms. DuoNeb given for bronchospasm. Wheezing has cleared after the DuoNeb. The patient has an albuterol and Advair inhaler. He was encouraged to take these as needed for wheezing. He also complains of chronic back pain. Tylenol 650 mg orally given. He will be discharged back to the [facility] with Librium prepack. Differential Diagnosis: Differential diagnosis includes though not limited to delirium tremens, hypoxia , seizure, pneumonia. - Data Points Medications Given: Discontinued Medications Acetaminophen (Tylenol) 650 mg PO EDNOW ONE Stop: 08/24/16 20:48 Last Admin: 08/24/16 21:23 Dose: 650 mg Albuterol/Ipratropium (Duoneb) 3 ml IH EDNOW ONE Stop: 08/24/16 19:57 Last Admin: 08/24/16 20:06 Dose: 3 ml Chlordiazepoxide (Librium 25 Mg Prepack#6) 1 btl TAKEHOME EDNOW ONE Stop: 08/24/16 20:16 Last Admin: 08/24/16 21:24 Dose: 1 btl Sodium Chloride (Ns) 1,000 mls @ 0 mls/hr IV ONCE ONE; Wide Open PRN Reason: Protocol Stop: 08/24/16 19:57 Last Admin: 08/24/16 20:06 Dose: 1,000 mls Lorazepam (Ativan Injection) 1 mg IVP EDNOW ONE Stop: 08/24/16 19:57 Last Admin: 08/24/16 20:06 Dose: 1 mg Lorazepam (Ativan Injection) 1 mg IVP EDNOW ONE Stop: 08/24/16 21:26 Last Admin: 08/24/16 21:26 Dose: 1 mg Departure - Departure Disposition: Home, Routine, Self-Care Clinical Impression: Alcohol withdrawal Qualifiers: Complication of substance-induced condition: uncomplicated Qualified Code(s): F10.230 - Alcohol dependence with withdrawal, uncomplicated Condition: Good Instructions: Alcohol Withdrawal (ED) Additional Instructions: 1. Librium: 1-2 tablets every 6 hours as needed for alcohol withdrawal. 2. Please continue detox at the [facility]. Followup with your primary care physician as needed. 3. Take 600mg Ibuprofen every 6-8 hours as needed for back pain. Referrals: Mandie Howard [Primary Care Provider] - As per Instructions Report Scribed for: Afua Cano Report Scribed by: Zee Blankenhsip Date of Report: 08/24/16 Time of Report: 19:49 Physician Review and Approval Statement: 08/24/16 19:49 Portions of this note were transcribed by a medical housekeeper. I personally performed the history, physical exam, and medical decision-making; and confirmed the accuracy of the information in the transcribed note.
[2016-08-24] MEDS ORDERED: CHLORDIAZEPOXIDE 25MG PREPK#6 BTL TAKEHOME ONE (20:15)
[2016-08-24] MEDS ORDERED: ACETAMINOPHEN 325 MG TAB PO ONE (20:47)
[2016-08-24 22:26] VITALS: BP 167/99; PULSE 89; RESP 16; TEMP 98.6; O2SAT 92
== END 2016-08-24 22:23 | disposition home or self-care (01) ==
DX: F10.230 Alcohol dependence with withdrawal, uncomplicated (principal); J44.9 Chronic obstructive pulmonary disease, unspecified; I10 Essential (primary) hypertension; F17.200 Nicotine dependence, unspecified, uncomplicated; E86.9 Volume depletion, unspecified
CPT/HCPCS: 96361; 96374; 96376; 99284; J2060

== ENCOUNTER 2016-08-25 06:55 | Emergency (ER) | payer OTHER, MEDICAID ==
[2016-08-25 06:59] VITALS: TEMP 97.9
[2016-08-25] MEDS ORDERED: FAMOTIDINE 20 MG/NACL 50 ML IV ONE (07:20)
[2016-08-25] MEDS ORDERED: NS 1,000 ML IV ONE (07:20)
[2016-08-25] MEDS ORDERED: ONDANSETRON 4 MG/2 ML VIAL IVP ONE (07:20)
[2016-08-25] MEDS ORDERED: DIAZEPAM 10 MG/2 ML SYR IVP ONE (07:27)
--- NOTE | 2016-08-25 07:34 | EDPHY ---
H & P Time Seen by Provider: 08/25/16 07:18 HPI/ROS: HPI Diarrhea, bloody stool, abdominal cramping, alcohol withdrawal. 51-year-old male with [employer]. From the [facility]. Patient seen yesterday in our emergency department for alcohol withdrawal and discharge to the [facility] with a Librium prepack. He is very familiar to our emergency department. This is his 8th visit to our department this month alone. He states that he has been having crampy abdominal discomfort with diarrhea intermittently for the last 2- 3 days. He also complains of alcohol withdrawal. He states that he had some bright red blood in his stool earlier this morning. ROS: Constitutional: No fever, no chills. No weakness. As above. Eyes: No discharge. No changes in vision. ENT: No sore throat. No nasal congestion or rhinorrhea. Respiratory: No cough. No shortness of breath. Cardiac: No chest pain, no palpitations. Gastrointestinal: As above. No vomiting. Genitourinary: No hematuria. No dysuria or increased frequency with urination. Musculoskeletal: No back pain. No neck pain. No myalgias or arthralgias. Skin: No rashes. Neurological: No headache. No focal weakness or altered sensation. Past medical history: Alcohol abuse, chronic back pain, COPD, anxiety, depression, S1/S2 fusion, epilepsy. Social history: Alcohol abuse, here by himself. Heavy smoker. Physical Exam: General Appearance: Alert, no distress. This patient is responding to questions appropriately and in full sentences. This patient appears well- hydrated and well-nourished. Eyes: Pupils equal and round no pallor or injection. No lid edema, erythema or injection. Respiratory: There are no retractions, lungs are clear to auscultation with good air movement bilaterally. Cardiovascular: Regular rate and rhythm. No murmur. Gastrointestinal: Abdomen is soft and nontender on palpation throughout, no masses, bowel sounds normal. No focal tenderness at McBurney's point. No Pierre sign. Rectal exam: No gross blood. Normal tone. Light brown stool. Neurological: Motor sensory function is grossly intact. Cranial nerves are normal. Gait is normal. Mild resting tremor. Skin: Warm and dry, no rashes. Musculoskeletal: Neck is supple and nontender. Extremities are symmetrical. All joints range without pain or impingement. Psychiatric: No agitation. No depression. Database: EKG: Imaging: Procedures: Emergency department course: IV placed. Vital signs reviewed. He is moderately hypertensive. Vital signs otherwise normal. Afebrile. He was started on IV normal saline with 1 L to be given over the next hour. Secondary to his history of alcohol abuse and mild withdrawal symptoms, he was given 10 mg of IV Valium. Coagulation profile CBC will be evaluated. Hemoccult stool sent. Hemoccult stool testing negative 7:35 a.m.. Laboratory work reviewed from previous visits. I had initially ordered a CBC and coagulation profile. Given his benign abdominal exam and negative Hemoccult stool test, I have canceled his blood work. He will be given 10 mg of oral Valium. Plan will be to discharge him back to the [facility]. 8:00 a.m., patient feeling much better. He feels comfortable being discharged. Repeat abdominal exam is soft, nontender nondistended. Follow-up and return to emergency department precautions reviewed with him. All of his questions were answered. He was discharged back to the [facility] in good condition. He has Librium at the [facility] currently from his discharge yesterday. Differential Diagnosis: The differential diagnosis on this patient includes but is not limited to alcohol withdrawal, enteritis. Bowel obstruction, appendicitis, volvulus, other acute surgical etiology unlikely, significant gastrointestinal bleeding unlikely. This represents a partial list of diagnoses considered. These considerations are based on history, physical exam, past history, reassessment and diagnostic testing. Smoking Status: Heavy smoker Constitutional: Initial Vital Signs Temperature (C) 36.6 C 08/25/16 06:56 Heart Rate 89 08/25/16 06:56 Respiratory Rate 18 08/25/16 06:56 Blood Pressure 160/107 H 08/25/16 06:56 O2 Sat (%) 100 08/25/16 06:56 O2 Delivery Mode Room Air Allergies/Adverse Reactions: gabapentin Allergy (Verified 08/23/16 05:58) bee stings Allergy (Severe, Uncoded 08/23/16 05:58) Anaphylaxis Home Medications: Medication Instructions Recorded Lisinopril/Hctz 20/12.5MG 1 ea PO DAILY 08/01/16 [Zestoretic/Prinzide 20/12.5MG (*)] Ipratropium/Albuterol [Duoneb (*)] 3 ml IH 08/18/16 Oxycodone HCl 5 mg PO 08/18/16 Phenytoin Sodium Extended 100 mg PO 08/18/16 [Dilantin] Phenytoin Sodium Extended 300 mg PO DAILY #9 capsule 08/21/16 [Dilantin] Medical Decision Making - Data Points Laboratory Results: 08/25/16 07:25 Stool Occult Bld Scrn NEGATIVE (NEGATIVE) Medications Given: Discontinued Medications Diazepam (Valium Injection) 10 mg IVP EDNOW ONE Stop: 08/25/16 07:28 Last Admin: 08/25/16 07:44 Dose: Not Given Diazepam (Valium) 10 mg PO EDNOW ONE Stop: 08/25/16 07:46 Last Admin: 08/25/16 07:46 Dose: 10 mg Sodium Chloride (Ns) 1,000 mls @ 0 mls/hr IV EDNOW ONE; Wide Open PRN Reason: Protocol Stop: 08/25/16 07:21 Last Admin: 08/25/16 07:44 Dose: Not Given Famotidine/Sodium Chloride (Pepcid 20 Mg (Premix)) 50 mls @ 200 mls/hr IV EDNOW ONE Stop: 08/25/16 07:34 Last Admin: 08/25/16 07:44 Dose: Not Given Ondansetron HCl (Zofran) 4 mg IVP EDNOW ONE Stop: 08/25/16 07:21 Last Admin: 08/25/16 07:44 Dose: Not Given Departure - Departure Disposition: Home, Routine, Self-Care Clinical Impression: Alcohol withdrawal, Diarrhea Condition: Good Instructions: Acute Diarrhea (ED), Alcohol Withdrawal (ED) Additional Instructions: Read and follow provided instructions. Follow-up with your primary care physician in 1-2 days for re-evaluation. Take medication as prescribed. You have been given Librium for alcohol withdrawal, to be administered by the [facility] on your discharge yesterday. Return to the emergency department for worsening abdominal pain, vomiting and inability to keep fluids down, fever, rectal bleeding or other serious concerns. Referrals: Mandie Howard [Primary Care Provider] - As per Instructions
[2016-08-25] MEDS ORDERED: DIAZEPAM 5 MG TAB ONE (07:42)
[2016-08-25] MEDS ORDERED: DIAZEPAM 5 MG TAB PO ONE (07:45)
[2016-08-25 08:20] VITALS: BP 145/68; PULSE 82; RESP 16; O2SAT 94
== END 2016-08-25 08:22 | disposition home or self-care (01) ==
DX: R19.7 Diarrhea, unspecified (principal); F10.239 Alcohol dependence with withdrawal, unspecified; J44.9 Chronic obstructive pulmonary disease, unspecified; F17.200 Nicotine dependence, unspecified, uncomplicated
CPT/HCPCS: J2405

== ENCOUNTER 2016-08-28 12:21 | Emergency (ER) | payer OTHER, MEDICAID ==
[2016-08-28] MEDS ORDERED: LORazepam 1 MG TAB PO ONE (12:36)
[2016-08-28 12:38] VITALS: TEMP 97.5
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
[2016-08-28] MEDS ORDERED: PHENYTOIN 100 MG/4 ML UDL PO ONE ×2 (13:13→13:30)
[2016-08-28] MEDS ORDERED: CHLORDIAZEPOXIDE 25MG PREPK#6 BTL TAKEHOME ONE (13:14)
[2016-08-28 13:22] VITALS: BP 118/72; PULSE 73; RESP 20; O2SAT 99
[2016-08-28] MEDS ORDERED: PHENYTOIN 50 MG CHEWABLE TAB PO ONE (13:45)
== END 2016-08-28 14:01 | disposition home or self-care (01) ==
LOC: EDUNIT#
DX: G40.909 Epilepsy, unspecified, not intractable, without status epilepticus (principal); F10.10 Alcohol abuse, uncomplicated; J44.9 Chronic obstructive pulmonary disease, unspecified; I10 Essential (primary) hypertension; F17.200 Nicotine dependence, unspecified, uncomplicated

== ENCOUNTER 2016-08-29 12:37 | Emergency (ER) | payer OTHER, MEDICAID ==
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
[2016-08-29] MEDS ORDERED: NS 1,000 ML IV ONE (13:01)
[2016-08-29] MEDS ORDERED: PHENYTOIN SODIUM EXTENDED 100 MG CAP PO ONE (13:02)
[2016-08-29 14:35] VITALS: BP 129/96; PULSE 88; RESP 16; TEMP 97.7; O2SAT 97
== END 2016-08-29 14:51 | disposition home or self-care (01) ==
LOC: EDUNIT#
DX: G40.909 Epilepsy, unspecified, not intractable, without status epilepticus (principal); I10 Essential (primary) hypertension; J44.9 Chronic obstructive pulmonary disease, unspecified; F17.200 Nicotine dependence, unspecified, uncomplicated; E86.9 Volume depletion, unspecified

== ENCOUNTER 2016-08-30 11:52 | Emergency (ER) | payer OTHER, MEDICAID ==
[2016-08-30 12:00] VITALS: BP 140/94; PULSE 99; RESP 15; TEMP 98.1; O2SAT 93
--- NOTE | 2016-08-30 12:00 | CPEKG ---
Heart Rate: 94 RR Interval: 638 P-R Interval: 156 QRSD Interval: 70 QT Interval: 352 QTC Interval: 441 P [place]: 69 QRS [place]: 50 T Wave [place]: 68 EKG Severity - BORDERLINE ECG - EKG Impression: SINUS RHYTHM EKG Impression: LOW VOLTAGE THROUGHOUT Electronically Signed By: Jaime Heaton 30-Aug-2016 17:29:41
== END 2016-08-30 13:27 | disposition left against medical advice (07) ==
LOC: EDUNIT#
DX: Z53.21 Procedure and treatment not carried out due to patient leaving prior to being seen by health care provider (principal)

== ENCOUNTER 2016-08-30 16:29 | Emergency (ER) | payer OTHER, MEDICAID ==
[2016-08-30 16:37] VITALS: O2SAT 92
--- NOTE | 2016-08-30 16:59 | EDPHY ---
H & P Stated Complaint: suri Time Seen by Provider: 08/30/16 16:58 HPI/ROS: CHIEF COMPLAINT: Reported seizure HISTORY OF PRESENT ILLNESS: The patient is brought to the emergency department after reported seizure. The patient has a history of chronic alcoholism and seizure from that condition. The patient has been noncompliant with Dilantin medication. The patient denies any complaints of acute trauma. He had been seen in the emergency department earlier today after another reported seizure at had a CT scan of the head and cervical spine at that point time which demonstrated no evidence of an acute injury. The patient did report having alcohol after being discharged from the emergency department. The patient smells of alcohol. The patient denies taking any additional medications. He has no acute complaints. REVIEW OF SYSTEMS: A comprehensive 10 point review of systems is otherwise negative aside from elements mentioned in the history of present illness. Source: Patient - Personal History Tetanus Vaccine Date: 2010 - Medical/Surgical History Hx Asthma: No Hx Chronic Respiratory Disease: Yes Hx Diabetes: No Hx Cardiac Disease: No Hx Renal Disease: No Hx Cirrhosis: No Hx Alcoholism: Yes Hx HIV/AIDS: No Hx Splenectomy or Spleen Trauma: No Other PMH: PMH: htn, depression/anxiety,chronic back pain. [id number], rolanda,left knee,gastric bypass, COPD, epilepsy, ETOH - Social History Smoking Status: Heavy smoker - Physical Exam Exam: General Appearance: Alert, no distress, alcohol on breath Eyes: Pupils equal and round no pallor or injection ENT, Mouth: Mucous membranes moist Respiratory: There are no retractions, lungs are clear to auscultation Cardiovascular: Regular rate and rhythm Gastrointestinal: Abdomen is soft and nontender, no masses, bowel sounds normal Neurological: A&O, normal motor function, normal sensory exam, normal cranial nerves Skin: Warm and dry, no rashes Musculoskeletal: Neck is supple nontender Extremities: symmetrical, full range of motion Psychiatric: Patient is oriented X 3, there is no agitation Constitutional: Initial Vital Signs Temperature (C) 36.7 C 08/30/16 16:29 Heart Rate 113 H 08/30/16 16:29 Respiratory Rate 18 08/30/16 16:29 Blood Pressure 144/72 H 08/30/16 16:29 O2 Sat (%) 92 08/30/16 16:29 O2 Delivery Mode Room Air Allergies/Adverse Reactions: gabapentin Allergy (Verified 08/30/16 16:35) bee stings Allergy (Severe, Uncoded 08/23/16 05:58) Anaphylaxis Home Medications: Medication Instructions Recorded Lisinopril/Hctz 20/12.5MG 1 ea PO DAILY 08/01/16 [Zestoretic/Prinzide 20/12.5MG (*)] Ipratropium/Albuterol [Duoneb (*)] 3 ml IH 08/18/16 Oxycodone HCl 5 mg PO 08/18/16 Phenytoin Sodium Extended 100 mg PO 08/18/16 [Dilantin] Phenytoin Sodium Extended 300 mg PO DAILY #9 capsule 08/21/16 [Dilantin] ADVAIR HFA 230-21 MCG INHALER 08/30/16 Medical Decision Making - Diagnostics EKG Interpretation: EKG: Complete interpretation has been separately recorded in the [employer] archive. Summary impression: Sinus rhythm ED Course/Re-evaluation: I reviewed the patient's extensive past medical records. It is clear that he is not compliant with his Dilantin medication. The patient is intoxicated emergency department his blood alcohol level is 248. I doubt that the patient had a seizure and am suspicious that the patient simply is intoxicated. The patient's EKG demonstrates no evidence of an arrhythmia. [facility]. Differential Diagnosis: Differential diagnosis considered includes alcohol withdrawal seizure, alcohol intoxication, metabolic abnormality Departure - Departure Disposition: Home, Routine, Self-Care Clinical Impression: Alcohol intoxication Condition: Good Instructions: Alcohol Intoxication (ED) Referrals: Patient,NotPresent [Unknown] - As per Instructions
[2016-08-30 18:38] VITALS: BP 139/74; PULSE 110; RESP 20; TEMP 98.6
== END 2016-08-30 18:41 | disposition home or self-care (01) ==
LOC: EDUNIT#
DX: F10.129 Alcohol abuse with intoxication, unspecified (principal); I10 Essential (primary) hypertension; J44.9 Chronic obstructive pulmonary disease, unspecified; F17.200 Nicotine dependence, unspecified, uncomplicated

== ENCOUNTER 2016-08-31 11:08 | Emergency (ER) | payer OTHER, MEDICAID ==
[2016-08-31 11:16] VITALS: BP 157/90; PULSE 111; TEMP 98.6
[2016-08-31 11:43] LABS: % IMMATURE GRANULYOCYTES 0.2 % (0.0-1.1); ABSOLUTE IMMATURE GRANULOCYTES 0.01 10^3/uL (0.00-0.10); ADD DIFF? NO; ADD MORPH? NO; ADD SCAN? NO; ATYPICAL LYMPHOCYTE FLAG 0 (0-99); FRAGMENT RBC FLAG 0 (0-99); HEMATOCRIT 36.6 % (40.0-51.0); LEFT SHIFT FLG 10 (0-99); LIPEMIA HEMOLYSIS FLAG 80 (0-99); MEAN CELL HEMOGLOBIN 26.6 pg (27.9-34.1); MEAN CELL HEMOGLOBIN CONCENTR. 32.8 g/dL (32.4-36.7); MEAN CELL VOLUME 81.2 fL (81.5-99.8); MEAN PLATELET VOLUME 9.7 fL (8.7-11.7); PLATELET CLUMPS FLAG 0 (0-99); PLATELET COUNT 170 10^3/uL (150-400); RED BLOOD CELL COUNT 4.51 10^6/uL (4.40-6.38); RED CELL DISTRIBUTION WIDTH 17.9 % (11.5-15.2)
[2016-08-31 11:59] LABS: ANION GAP 14 mEq/L (8-16); CARBON DIOXIDE 18 mEq/l (22-31); CHLORIDE 113 mEq/L (97-110); CREATININE 0.7 mg/dL (0.7-1.3); GLOMERULAR FILTRATION RATE > 60; GLUCOSE 83 mg/dL (70-100); POTASSIUM 4.2 mEq/L (3.5-5.2); SODIUM 145 mEq/L (134-144)
[2016-08-31 12:12] LABS: ETHANOL SERUM 331 mg/dL (0-10)
[2016-08-31 12:13] VITALS: O2SAT 90
[2016-08-31] MEDS ORDERED: NS 1,000 ML IV ONE (12:52)
--- NOTE | 2016-08-31 13:03 | EDPHY ---
H & P Time Seen by Provider: 08/31/16 11:30 HPI/ROS: CHIEF COMPLAINT: Possible seizure HISTORY OF PRESENT ILLNESS: 51-year-old homeless male presents to the emergency department by ambulance after having a possible seizure. Patient has a history of seizure disorder and is noncompliant with his Dilantin. The patient presents now to the emergency department requesting pain medication for his back and also requesting Ativan for his alcohol withdrawal. States he last drank yesterday. He has had alcohol withdrawal seizures in the past. He denies any reported trauma. He has chronic low back pain. Denies chest pain or difficulty breathing. Denies abdominal pain. Denies visual changes. He denies feeling depressed, suicidal homicidal. Denies any other substance abuse. REVIEW OF SYSTEMS: Constitutional: No fever, no chills. Eyes: No double or blurry vision. ENT: No sore throat. Respiratory: No cough, no shortness of breath. Cardiac: No chest pain. Gastrointestinal: No abdominal pain, vomiting or diarrhea. Genitourinary: No dysuria. Musculoskeletal: Chronic back pain as above. No neck pain. Skin: No rashes. Neurological: No headache. Past Medical/Surgical History: Alcoholism, chronic back pain, back surgery, gastric bypass, COPD, depression, anxiety, hypertension, seizure disorder Social History: Currently homeless Smoking Status: Heavy smoker Physical Exam: General Appearance: Alert, no distress. Smells strongly of alcohol. No visible signs of trauma to his head. Eyes: Pupils equal and round. Extraocular motions are all intact. ENT: Mouth: Mucous membranes moist. No tongue abrasion or laceration noted. Respiratory: No wheezing, rhonchi, or rales, lungs are clear to auscultation. Cardiovascular: Regular rate and rhythm. Gastrointestinal: Abdomen is soft and nontender, no masses, no rebound or guarding, bowel sounds normal. Neurological: Alert and oriented x 3, cranial nerves II through XII grossly intact Skin: Warm and dry, no rashes. Musculoskeletal: Nontender to palpate along the cervical, thoracic or lumbar spine. Neck is supple. Well-healed surgical incision noted to the lower thoracic extending down to the lumbar spine. Extremities: Full range of motion and no peripheral edema. Psychiatric: Patient is oriented X 3, there is no agitation. Constitutional: Initial Vital Signs Temperature (C) 37 C 08/31/16 11:15 Heart Rate 111 H 07/21/17 11:15 Blood Pressure 157/90 H 08/31/16 11:15 O2 Sat (%) 94 08/31/16 11:15 O2 Delivery Mode Room Air Allergies/Adverse Reactions: gabapentin Allergy (Verified 09/02/16 03:01) bee stings Allergy (Severe, Uncoded 09/02/16 03:01) Anaphylaxis Home Medications: Medication Instructions Recorded Lisinopril/Hctz 20/12.5MG 1 ea PO DAILY 08/01/16 [Zestoretic/Prinzide 20/12.5MG (*)] Ipratropium/Albuterol [Duoneb (*)] 3 ml IH 08/18/16 Oxycodone HCl 5 mg PO 08/18/16 Phenytoin Sodium Extended 100 mg PO 08/18/16 [Dilantin] Phenytoin Sodium Extended 300 mg PO DAILY #9 capsule 08/21/16 [Dilantin] ADVAIR HFA 230-21 MCG INHALER 08/30/16 Medical Decision Making ED Course/Re-evaluation: 51-year-old male presents to the emergency department requesting pain medication and Ativan. The patient had ETOH level of over 300. I explained to the patient that he would not receive narcotics or Ativan in the emergency department. The patient was observed for over 1 hour in the emergency department requested to be discharged. The patient tells me that he is not suicidal or homicidal. Would like to be discharged. The patient was encouraged to go to the [facility], however the patient refused to go and states that he is not welcome there anyway. It is not clear whether this patient has alcohol withdrawal seizures or to epilepsy. He is noncompliant with his Dilantin. He has been seen several times in the emergency department for similar complaints. He does have a primary care provider. The patient is ambulatory. He is without any complaints. He was discharged to the emergency department. Differential Diagnosis: Seizure including but not limited to electrolyte abnormality, alcohol withdrawal , medication noncompliance, head injury, and breakthrough seizure. Back pain including but not limited to muscular pain, herniated disc, spine fracture, intra-abdominal causes and urinary tract infection. - Data Points Laboratory Results: Laboratory Results 08/31/16 11:35 08/31/16 11:35 Departure - Departure Disposition: Home, Routine, Self-Care Clinical Impression: Alcohol intoxication Qualifiers: Complication of substance-induced condition: uncomplicated Qualified Code(s): F10.920 - Alcohol use, unspecified with intoxication, uncomplicated Condition: Good Instructions: Alcohol Intoxication (ED) Additional Instructions: You should not drink alcohol in excess. Return to the emergency department if you have any recurring seizure or any other concerns. Take your medication as prescribed. Referrals: [facility] [Outside] - As per Instructions
== END 2016-08-31 13:00 | disposition home or self-care (01) ==
LOC: EDUNIT#
DX: F10.920 Alcohol use, unspecified with intoxication, uncomplicated (principal); J44.9 Chronic obstructive pulmonary disease, unspecified; I10 Essential (primary) hypertension; F17.200 Nicotine dependence, unspecified, uncomplicated
CPT/HCPCS: G0480

== ENCOUNTER 2016-09-01 04:11 | Emergency (ER) | payer OTHER, MEDICAID ==
[2016-09-01] MEDS ORDERED: LORazepam 2 MG/ML INJ IVP ONE ×2 (04:18→06:46)
[2016-09-01] MEDS ORDERED: PHENYTOIN SODIUM 1,000 MG in NS 100 ML IV ONE (04:18)
[2016-09-01] MEDS ORDERED: NS 1,000 ML IV ONE (04:18)
--- NOTE | 2016-09-01 04:20 | EDPHY ---
H & P Time Seen by Provider: 09/01/16 04:17 HPI/ROS: CHIEF COMPLAINT: Seizure HISTORY OF PRESENT ILLNESS: The patient is a 51-year-old homeless alcoholic man with a history of seizures who is well known to our department. He called 911 this evening after having a seizure. He states that his last drink was 2 days ago. He has also been noncompliant with his Dilantin which is baseline. He has been referred multiple times to case management and social work but continues to be noncompliant. He does however drink large amounts of alcohol intake opiates for his chronic back pain. He denies recent head injuries or fevers. He is mildly tremulous. He was seen here 16 hrs ago and had an alcohol level of 330. REVIEW OF SYSTEMS: Constitutional: Tremulous EENTM: denies: blurred vision, double vision, nose congestion Respiratory: denies: cough, shortness of breath Cardiac: denies: chest pain, irregular heart rate, lightheadedness, palpitations Gastrointestinal/Abdominal: denies: abdominal pain, diarrhea, nausea, vomiting, blood streaked stools Genitourinary: denies: dysuria, frequency, hematuria, pain Musculoskeletal: denies: joint pain, muscle pain Skin: denies: lesions, rash, jaundice, bruising Neurological: See HPI Hematologic/Lymphatic: denies: blood clots, easy bleeding, easy bruising Immunologic/allergic: denies: HIV/AIDS, transplant EXAM: GENERAL: Fatigued HEAD: Atraumatic, normocephalic. EYES: Pupils equal round and reactive to light, extraocular movements intact, sclera anicteric, conjunctiva are normal. ENT: TMs normal, nares patent, oropharynx clear without exudates. Moist mucous membranes. NECK: Normal range of motion, supple without lymphadenopathy or JVD. LUNGS: Breath sounds clear to auscultation bilaterally and equal. No wheezes rales or rhonchi. HEART: Regular rate and rhythm without murmurs, rubs or gallops. ABDOMEN: Soft, nontender, normoactive bowel sounds. No guarding, no rebound. No masses appreciated. BACK: No CVA tenderness, no spinal tenderness, step-offs or deformities EXTREMITIES: Normal range of motion, no pitting or edema. No clubbing or cyanosis. NEUROLOGICAL: Tremulous, Cranial nerves II through XII grossly intact. Normal speech, slightly unsteady gait. 5/5 strength, normal movement in all extremities, normal sensation PSYCH: Frustrated SKIN: Warm, dry, normal turgor, no visible rashes or lesions. Source: Patient Exam Limitations: No limitations - Personal History Tetanus Vaccine Date: 2010 - Medical/Surgical History Hx Asthma: No Hx Chronic Respiratory Disease: Yes Hx Diabetes: No Hx Cardiac Disease: No Hx Renal Disease: No Hx Cirrhosis: No Hx Alcoholism: Yes Hx HIV/AIDS: No Hx Splenectomy or Spleen Trauma: No Other PMH: PMH: htn, depression/anxiety,chronic back pain. [id number]-fusion, rolanda,left knee,gastric bypass, COPD, epilepsy, ETOH - Family History Significant Family History: No pertinent family hx - Social History Smoking Status: Heavy smoker Alcohol Use: Heavy Drug Use: Other Constitutional: Initial Vital Signs Temperature (C) 36.4 C 09/01/16 04:22 Heart Rate 94 09/01/16 04:22 Respiratory Rate 20 09/01/16 04:22 Blood Pressure 159/107 H 09/01/16 04:22 O2 Sat (%) 96 09/01/16 04:22 O2 Delivery Mode Room Air Allergies/Adverse Reactions: gabapentin Allergy (Verified 08/30/16 16:35) bee stings Allergy (Severe, Uncoded 08/23/16 05:58) Anaphylaxis Home Medications: Medication Instructions Recorded Lisinopril/Hctz 20/12.5MG 1 ea PO DAILY 08/01/16 [Zestoretic/Prinzide 20/12.5MG (*)] Ipratropium/Albuterol [Duoneb (*)] 3 ml IH 08/18/16 Oxycodone HCl 5 mg PO 08/18/16 Phenytoin Sodium Extended 100 mg PO 08/18/16 [Dilantin] Phenytoin Sodium Extended 300 mg PO DAILY #9 capsule 08/21/16 [Dilantin] ADVAIR HFA 230-21 MCG INHALER 08/30/16 Medical Decision Making ED Course/Re-evaluation: 6:50 a.m. the patient is doing much better. He is currently sleeping. He does still have a very slight tremor when aroused. I will treat him with another dose of Ativan and repairs paperwork for transfer to the [facility] with Librium protocol. The patient understands and agrees with this plan. He has Dilantin prescription available to him. Differential Diagnosis: Partial list of the Differential diagnosis considered include but were not limited to; alcohol withdrawal, seizure, medication noncompliance and although unlikely based on the history and physical exam, I also considered infection, head injury, tumor, hemorrhage, CVA. - Data Points Laboratory Results: Laboratory Results 09/01/16 04:45 09/01/16 04:45 Medications Given: Discontinued Medications Chlordiazepoxide (Librium 25 Mg Prepack#6) 1 btl TAKEHOME EDNOW ONE Stop: 09/01/16 06:50 Last Admin: 09/01/16 08:29 Dose: 1 btl Sodium Chloride (Ns) 1,000 mls @ 0 mls/hr IV ONCE ONE; Wide Open PRN Reason: Protocol Stop: 09/01/16 04:19 Last Admin: 09/01/16 04:48 Dose: 1,000 mls Phenytoin Sodium 1,000 mg/ (Sodium Chloride) 120 mls @ 360 mls/hr IV EDNOW ONE Stop: 09/01/16 04:37 Last Admin: 09/01/16 05:12 Dose: 120 mls Lorazepam (Ativan Injection) 2 mg IVP EDNOW ONE Stop: 09/01/16 04:19 Last Admin: 09/01/16 04:48 Dose: 2 mg Lorazepam (Ativan Injection) 1 mg IVP EDNOW ONE Stop: 09/01/16 06:47 Last Admin: 09/01/16 07:12 Dose: 1 mg Departure - Departure Disposition: Home, Routine, Self-Care Clinical Impression: Seizure disorder Alcohol withdrawal Qualifiers: Complication of substance-induced condition: with unspecified complication Qualified Code(s): F10.239 - Alcohol dependence with withdrawal, unspecified Condition: Fair Instructions: Chlordiazepoxide/Clidinium (By mouth), Alcohol Withdrawal (ED), Recurrent Seizures in Adults (ED) Additional Instructions: Fill your Dilantin prescription and resume taking it. Avoid alcohol as discussed. [facility]. He will receive Librium there. Referrals: NONE *PRIMARY CARE P,. [Primary Care Provider] - As per Instructions
[2016-09-01 04:31] VITALS: PULSE 94; RESP 20; TEMP 97.5; O2SAT 96
[2016-09-01 05:02] LABS: % IMMATURE GRANULYOCYTES 0.3 % (0.0-1.1); ABSOLUTE IMMATURE GRANULOCYTES 0.01 10^3/uL (0.00-0.10); ADD DIFF? NO; ADD MORPH? NO; ADD SCAN? NO; ATYPICAL LYMPHOCYTE FLAG 0 (0-99); FRAGMENT RBC FLAG 0 (0-99); HEMATOCRIT 42.2 % (40.0-51.0); HEMOGLOBIN 13.4 g/dL (13.7-17.5); LEFT SHIFT FLG 0 (0-99); LIPEMIA HEMOLYSIS FLAG 80 (0-99); MEAN CELL HEMOGLOBIN 26.5 pg (27.9-34.1); MEAN CELL HEMOGLOBIN CONCENTR. 31.8 g/dL (32.4-36.7); MEAN CELL VOLUME 83.4 fL (81.5-99.8); MEAN PLATELET VOLUME 10.6 fL (8.7-11.7); PLATELET CLUMPS FLAG 40 (0-99); PLATELET COUNT 150 10^3/uL (150-400); RED BLOOD CELL COUNT 5.06 10^6/uL (4.40-6.38); RED CELL DISTRIBUTION WIDTH 18.1 % (11.5-15.2)
[2016-09-01 05:21] LABS: ANION GAP 18 mEq/L (8-16); CALCIUM 8.4 mg/dL (8.5-10.4); CARBON DIOXIDE 18 mEq/l (22-31); CHLORIDE 112 mEq/L (97-110); CREATININE 0.7 mg/dL (0.7-1.3); GLOMERULAR FILTRATION RATE > 60; GLUCOSE 55 mg/dL (70-100); POTASSIUM 4.1 mEq/L (3.5-5.2); SODIUM 148 mEq/L (134-144)
[2016-09-01] MEDS ORDERED: CHLORDIAZEPOXIDE 25MG PREPK#6 BTL TAKEHOME ONE (06:49)
[2016-09-01 08:45] VITALS: BP 154/99
== END 2016-09-01 08:44 | disposition home or self-care (01) ==
LOC: EDUNIT#
DX: G40.909 Epilepsy, unspecified, not intractable, without status epilepticus (principal); F10.239 Alcohol dependence with withdrawal, unspecified; E86.9 Volume depletion, unspecified; I10 Essential (primary) hypertension; J44.9 Chronic obstructive pulmonary disease, unspecified; F17.200 Nicotine dependence, unspecified, uncomplicated
CPT/HCPCS: 96365; 96375; 96376; 99284; J2060

== ENCOUNTER 2016-09-02 02:53 | Emergency (ER) | payer OTHER, MEDICAID ==
[2016-09-02] MEDS ORDERED: PHENYTOIN SODIUM EXTENDED 100 MG CAP PO ONE (02:57)
--- NOTE | 2016-09-02 03:01 | EDPHY ---
H & P HPI/ROS: HPI CHIEF COMPLAINT: Possible seizure, alcohol intoxication HISTORY OF PRESENT ILLNESS: This patient is a 51-year-old male, well-known to the emergency room this is his 27th ER visit, presents to the emergency room by EMS after bystanders witnessed him have a seizure. He was not postictal for EMS. He denies any tongue biting or bowel or bladder incontinence. No trauma. He was reported to have a seizure at the [facility]. Upon arrival to the emergency room he has no complaints. He states he is noncompliant with his Dilantin. Of note he was here in the emergency room earlier this morning. Here in the ER he is requesting go to the [facility]. Past Medical History: Seizure disorder, noncompliant with his medications, asthma Past Surgical History: Lumbar fusion, gastric bypass surgery Social History: Homeless, daily tobacco, denies marijuana, daily alcohol Family History: Noncontributory ROS REVIEW OF SYSTEMS: A comprehensive 10 point review of systems is otherwise negative aside from elements mentioned in the history of present illness. Exam Constitutional smells of alcohol, triage nursing summary reviewed, vital signs reviewed, awake/alert. Eyes normal conjunctivae and sclera, EOMI, PERRLA. HENT normal inspection, atraumatic, moist mucus membranes, no epistaxis, neck supple/ no meningismus, no raccoon eyes. Respiratory clear to auscultation bilaterally, normal breath sounds, no respiratory distress, no wheezing. Cardiovascular rate normal, regular rhythm, no murmur, no edema, distal pulses normal. Gastrointestinal soft, non-tender, no rebound, no guarding, normal bowel sounds, no distension, no pulsatile mass. Genitourinary no CVA tenderness. Musculoskeletal no midline vertebral tenderness, full range of motion, no calf swelling, no tenderness of extremities, no meningismus, good pulses, neurovascularly intact. Skin pink, warm, & dry, no rash, skin atraumatic. Neurologic intoxicated, smells of alcohol awake, alert and oriented x 3, AAOx3 , moves all 4 extremities equally, motor intact, sensory intact, CN II-XII intact, normal cerebellar, normal vision, normal speech. Psychiatric normal mood/affect. Heme/Lymph/Immune no lymphadenopathy. Differential Diagnosis: Includes but is not limited to in a particular order seizure, breakthrough seizure, seizure disorder with medication noncompliance, acute alcohol intoxication Medical Decision Making: Patient here in emergency room no focal medical complaints. Well-known to myself as well as the ER. Here with a breath alcohol 0.140 requesting go to [facility]. I have ordered him a oral dose of phenytoin. And will discharge him to [facility]. Vital signs are stable. He has no medical complaints. No trauma noted. Steady gait without any ataxia, clear speech calm and cooperative. Source: Patient, EMS - Personal History Tetanus Vaccine Date: 2010 - Medical/Surgical History Hx Asthma: No Hx Chronic Respiratory Disease: Yes Hx Diabetes: No Hx Cardiac Disease: No Hx Renal Disease: No Hx Cirrhosis: No Hx Alcoholism: Yes Hx HIV/AIDS: No Hx Splenectomy or Spleen Trauma: No Other PMH: PMH: htn, depression/anxiety,chronic back pain. [id number]-fusion, rolanda,left knee,gastric bypass, COPD, epilepsy, ETOH - Social History Smoking Status: Heavy smoker Allergies/Adverse Reactions: gabapentin Allergy (Verified 09/02/16 03:01) bee stings Allergy (Severe, Uncoded 09/02/16 03:01) Anaphylaxis Home Medications: Medication Instructions Recorded Lisinopril/Hctz 20/12.5MG 1 ea PO DAILY 08/01/16 [Zestoretic/Prinzide 20/12.5MG (*)] Ipratropium/Albuterol [Duoneb (*)] 3 ml IH 08/18/16 Oxycodone HCl 5 mg PO 08/18/16 Phenytoin Sodium Extended 100 mg PO 08/18/16 [Dilantin] Phenytoin Sodium Extended 300 mg PO DAILY #9 capsule 08/21/16 [Dilantin] ADVAIR HFA 230-21 MCG INHALER 08/30/16 Departure - Departure Disposition: Home, Routine, Self-Care Clinical Impression: Seizure Alcohol intoxication Qualifiers: Complication of substance-induced condition: uncomplicated Qualified Code(s): F10.920 - Alcohol use, unspecified with intoxication, uncomplicated Condition: Good Instructions: Abuse of Alcohol (ED), Alcohol Intoxication (ED) Referrals: Bib Darling MD [Primary Care Provider] - As per Instructions
[2016-09-02 03:03] VITALS: RESP 20; TEMP 98.1
[2016-09-02 03:49] VITALS: BP 128/91; PULSE 98; O2SAT 93
== END 2016-09-02 03:49 | disposition home or self-care (01) ==
LOC: EDUNIT#
DX: F10.120 Alcohol abuse with intoxication, uncomplicated (principal); G40.909 Epilepsy, unspecified, not intractable, without status epilepticus; F17.200 Nicotine dependence, unspecified, uncomplicated; I10 Essential (primary) hypertension; J44.9 Chronic obstructive pulmonary disease, unspecified

== ENCOUNTER 2016-09-02 18:54 | Emergency (ER) | payer OTHER, MEDICAID ==
--- NOTE | 2016-09-02 19:00 | EDPHY ---
H & P Time Seen by Provider: 09/02/16 19:00 HPI/ROS: CHIEF COMPLAINT: Alcohol intoxication HISTORY OF PRESENT ILLNESS: The patient is brought to the emergency department by paramedics with alcohol intoxication. He is well known to our emergency department has been here on a nearly daily basis over the past month. The patient has a history of known medication noncompliance with his Dilantin. He does get sporadic prescriptions for Dilantin in the emergency department. He currently is out of Dilantin. The patient denies any complaints of acute pain or trauma. The patient denies suicidal or homicidal ideation. REVIEW OF SYSTEMS: A comprehensive 10 point review of systems is otherwise negative aside from elements mentioned in the history of present illness. Source: Patient Exam Limitations: No limitations - Personal History Tetanus Vaccine Date: 2010 - Medical/Surgical History Hx Asthma: No Hx Chronic Respiratory Disease: Yes Hx Diabetes: No Hx Cardiac Disease: No Hx Renal Disease: No Hx Cirrhosis: No Hx Alcoholism: Yes Hx HIV/AIDS: No Hx Splenectomy or Spleen Trauma: No Other PMH: PMH: htn, depression/anxiety,chronic back pain. [id number], rolanda,left knee,gastric bypass, COPD, epilepsy, ETOH - Social History Smoking Status: Heavy smoker - Physical Exam Exam: General Appearance: Alert, alcohol on breath, no acute distress Eyes: Pupils equal and round no pallor or injection ENT, Mouth: Mucous membranes moist Respiratory: There are no retractions, lungs are clear to auscultation Cardiovascular: Regular rate and rhythm Gastrointestinal: Abdomen is soft and nontender, no masses, bowel sounds normal Neurological: A&O, normal motor function, normal sensory exam, normal cranial nerves Skin: Warm and dry, no rashes Musculoskeletal: Neck is supple nontender Extremities: symmetrical, full range of motion Constitutional: Initial Vital Signs Temperature (C) 36.9 C 09/02/16 18:59 Heart Rate 103 H 09/02/16 18:59 Respiratory Rate 18 09/02/16 18:59 Blood Pressure 126/72 H 09/02/16 18:59 O2 Sat (%) 93 09/02/16 18:59 O2 Delivery Mode Room Air Allergies/Adverse Reactions: gabapentin Allergy (Verified 09/02/16 18:58) bee stings Allergy (Severe, Uncoded 09/02/16 18:58) Anaphylaxis Home Medications: Medication Instructions Recorded Lisinopril/Hctz 30/01.5MG 1 ea PO DAILY 08/01/16 [Zestoretic/Prinzide 20/12.5MG (*)] Ipratropium/Albuterol [Duoneb (*)] 3 ml IH 08/18/16 Oxycodone HCl 5 mg PO 08/18/16 Phenytoin Sodium Extended 100 mg PO 08/18/16 [Dilantin] Phenytoin Sodium Extended 300 mg PO DAILY #9 capsule 08/21/16 [Dilantin] ADVAIR HFA 230-21 MCG INHALER 08/30/16 Medical Decision Making ED Course/Re-evaluation: The patient presents to the ED with recurrent alcohol intoxication without evidence of alcohol withdrawal seizure. The patient will [facility]. The patient will not be sporadically treated by myself with Dilantin as he is not compliant with this medication and currently intoxicated. The patient will be transferred to the [facility] with a Librium prepack as he clearly is at risk for developing symptoms of alcohol withdrawal. Differential Diagnosis: Differential diagnosis considered includes alcohol intoxication, alcohol withdrawal, postictal state from alcohol withdrawal seizure - Data Points Medications Given: Discontinued Medications Chlordiazepoxide (Librium 25 Mg Prepack#6) 1 btl TAKEHOME EDNOW ONE Stop: 09/02/16 19:51 Last Admin: 09/02/16 19:54 Dose: 1 btl Departure - Departure Disposition: Home, Routine, Self-Care Clinical Impression: Alcoholism Condition: Good Instructions: Alcohol Intoxication (ED) Additional Instructions: 1. Please follow up with the [facility] as directed Referrals: [facility] [Outside] - As per Instructions
[2016-09-02 19:02] VITALS: TEMP 98.4
[2016-09-02] MEDS ORDERED: CHLORDIAZEPOXIDE 25MG PREPK#6 BTL TAKEHOME ONE (19:50)
[2016-09-02 20:12] VITALS: BP 121/71; PULSE 90; RESP 16; O2SAT 95
== END 2016-09-02 20:12 | disposition home or self-care (01) ==
LOC: EDUNIT#
DX: F10.20 Alcohol dependence, uncomplicated (principal); I10 Essential (primary) hypertension; J44.9 Chronic obstructive pulmonary disease, unspecified; F17.200 Nicotine dependence, unspecified, uncomplicated

== ENCOUNTER 2016-09-04 12:51 | Emergency (ER) | payer OTHER, MEDICAID ==
[2016-09-04 12:57] VITALS: RESP 18
--- NOTE | 2016-09-04 13:02 | EDPHY ---
H & P Stated Complaint: seizure Time Seen by Provider: 09/04/16 13:02 HPI/ROS: CHIEF COMPLAINT: Found on ground HISTORY OF PRESENT ILLNESS: The patient was found on the ground earlier today by bystanders. The patient has a history of chronic alcohol intoxication reported history of epilepsy. The patient has been seen in the emergency department on a near daily basis for the past month. He is noncompliant with his outpatient Dilantin. The patient has been given prescriptions which he fails to fill or is unable to maintain in his possession. The patient has [facility] to the [facility] number of times over the past month. By report he was told he would be placed on a 5 day hold if he continued to present to the [facility]. The patient states that his last drink was yesterday. In the ED he is asking for Ativan. REVIEW OF SYSTEMS: A comprehensive 10 point review of systems is otherwise negative aside from elements mentioned in the history of present illness. Source: Patient Exam Limitations: No limitations - Personal History Tetanus Vaccine Date: 2010 - Medical/Surgical History Hx Asthma: No Hx Chronic Respiratory Disease: Yes Hx Diabetes: No Hx Cardiac Disease: No Hx Renal Disease: No Hx Cirrhosis: No Hx Alcoholism: Yes Hx HIV/AIDS: No Hx Splenectomy or Spleen Trauma: No Other PMH: PMH: htn, depression/anxiety,chronic back pain. [id number]-fusion, rolanda,left knee,gastric bypass, COPD, epilepsy, ETOH - Social History Smoking Status: Heavy smoker - Physical Exam Exam: General Appearance: Disheveled male, no acute distress Eyes: Pupils equal and round no pallor or injection ENT, Mouth: Mucous membranes moist Respiratory: There are no retractions, lungs are clear to auscultation Cardiovascular: Regular rate and rhythm Gastrointestinal: Abdomen is soft and nontender, no masses, bowel sounds normal Neurological: A&O, normal motor function, normal sensory exam, normal cranial nerves Skin: Warm and dry, no rashes Musculoskeletal: Neck is supple nontender Extremities: Superficial abrasions Psychiatric: Patient is oriented X 3, there is no agitation Constitutional: Initial Vital Signs Temperature (C) 37.0 C 09/04/16 12:56 Heart Rate 105 H 09/04/16 12:56 Respiratory Rate 18 09/04/16 12:56 Blood Pressure 115/79 09/04/16 12:56 O2 Sat (%) 95 09/04/16 12:56 O2 Delivery Mode Room Air Allergies/Adverse Reactions: gabapentin Allergy (Verified 09/02/16 18:58) bee stings Allergy (Severe, Uncoded 09/02/16 18:58) Anaphylaxis Home Medications: Medication Instructions Recorded Lisinopril/Hctz 20/12.5MG 1 ea PO DAILY 08/01/16 [Zestoretic/Prinzide 20/12.5MG (*)] Ipratropium/Albuterol [Duoneb (*)] 3 ml IH 08/18/16 Oxycodone HCl 5 mg PO 08/18/16 Phenytoin Sodium Extended 100 mg PO 08/18/16 [Dilantin] Phenytoin Sodium Extended 300 mg PO DAILY #9 capsule 08/21/16 [Dilantin] ADVAIR HFA 230-21 MCG INHALER 08/30/16 Medical Decision Making ED Course/Re-evaluation: The patient presents to the ED with ongoing problems related to his alcohol dependence. I do feel the patient would be well served if he was placed on a 5 day old that the [facility]. I did contact the facility in the ER comfortable with this plan. The patient has been given Librium a number of times this month. I will defer to the [facility] for managing his alcohol withdrawal with Librium. Again I do not feel that Dilantin is in the patient's best interest given his history of noncompliance. Once again, the patient's blood alcohol level is elevated. It is currently 0.280. I doubt alcohol withdrawal seizure. I have contacted the [facility] and the patient will be placed on a 5-day-old per their report to me. The patient will be transferred to the [facility] via taxi cab. He is ambulatory with a steady gait. Differential Diagnosis: Differential diagnosis considered includes alcohol withdrawal seizure, alcohol withdrawal syndrome, alcohol intoxication - Data Points Laboratory Results: Laboratory Results 09/04/16 13:05 09/04/16 13:05 09/04/16 09/04/16 13:05 13:05 WBC 5.60 10^3/uL 10^3/uL (3.80-9.50) RBC 4.55 10^6/uL 10^6/uL (4.40-6.38) Hgb 12.1 g/dL L g/dL (13.7-17.5) Hct 37.3 % L % (40.0-51.0) MCV 82.0 fL fL (81.5-99.8) MCH 26.6 pg L pg (27.9-34.1) MCHC 32.4 g/dL g/dL (32.4-36.7) RDW 17.6 % H % (11.5-15.2) Plt Count 171 10^3/uL 10^3/uL (150-400) MPV 9.8 fL fL (8.7-11.7) Neut % (Auto) 60.2 % % (39.3-74.2) Lymph % (Auto) 32.3 % % (15.0-45.0) Henry % (Auto) 6.1 % % (4.5-13.0) Eos % (Auto) 0.5 % L % (0.6-7.6) Baso % (Auto) 0.7 % % (0.3-1.7) Nucleat RBC Rel Count 0.0 % % (0.0-0.2) Absolute Neuts (auto) 3.37 10^3/uL 10^3/uL (1.70-6.50) Absolute Lymphs (auto) 1.81 10^3/uL 10^3/uL (1.00-3.00) Absolute Monos (auto) 0.34 10^3/uL 10^3/uL (0.30-0.80) Absolute Eos (auto) 0.03 10^3/uL 10^3/uL (0.03-0.40) Absolute Basos (auto) 0.04 10^3/uL 10^3/uL (0.02-0.10) Absolute Nucleated RBC 0.00 10^3/uL 10^3/uL (0-0.01) Immature Gran % 0.2 % % (0.0-1.1) Immature Gran # 0.01 10^3/uL 10^3/uL (0.00-0.10) Sodium 141 mEq/L mEq/L (134-144) Potassium 3.3 mEq/L L mEq/L (3.5-5.2) Chloride 107 mEq/L mEq/L (97-110) Carbon Dioxide 18 mEq/l L mEq/l (22-31) Anion Gap 16 mEq/L mEq/L (8-16) BUN 10 mg/dL mg/dL (7-23) Creatinine 0.7 mg/dL mg/dL (0.7-1.3) Estimated GFR > 60 Glucose 136 mg/dL H mg/dL (70-100) Calcium 8.2 mg/dL L mg/dL (8.5-10.4) Ethyl Alcohol 280 mg/dL H mg/dL (0-10) Departure - Departure Clinical Impression: Alcohol dependence, Alcohol intoxication Condition: Good Instructions: Alcohol Dependence (ED), Alcohol Intoxication (ED) Additional Instructions: 1. Please follow through with treatment at the [facility] as you have had numerous visits to the emergency department for alcohol intoxication and seizures this month. Referrals: [facility] [Outside] - As per Instructions
[2016-09-04 13:15] LABS: % IMMATURE GRANULYOCYTES 0.2 % (0.0-1.1); ABSOLUTE IMMATURE GRANULOCYTES 0.01 10^3/uL (0.00-0.10); ADD DIFF? NO; ADD MORPH? NO; ADD SCAN? NO; ATYPICAL LYMPHOCYTE FLAG 20 (0-99); FRAGMENT RBC FLAG 0 (0-99); HEMATOCRIT 37.3 % (40.0-51.0); HEMOGLOBIN 12.1 g/dL (13.7-17.5); LEFT SHIFT FLG 0 (0-99); LIPEMIA HEMOLYSIS FLAG 80 (0-99); MEAN CELL HEMOGLOBIN 26.6 pg (27.9-34.1); MEAN CELL HEMOGLOBIN CONCENTR. 32.4 g/dL (32.4-36.7); MEAN PLATELET VOLUME 9.8 fL (8.7-11.7); PLATELET CLUMPS FLAG 0 (0-99); PLATELET COUNT 171 10^3/uL (150-400); RED BLOOD CELL COUNT 4.55 10^6/uL (4.40-6.38); RED CELL DISTRIBUTION WIDTH 17.6 % (11.5-15.2)
[2016-09-04 13:51] LABS: ANION GAP 16 mEq/L (8-16); CALCIUM 8.2 mg/dL (8.5-10.4); CARBON DIOXIDE 18 mEq/l (22-31); CHLORIDE 107 mEq/L (97-110); CREATININE 0.7 mg/dL (0.7-1.3); ETHANOL SERUM 280 mg/dL (0-10); GLOMERULAR FILTRATION RATE > 60; GLUCOSE 136 mg/dL (70-100); POTASSIUM 3.3 mEq/L (3.5-5.2); SODIUM 141 mEq/L (134-144)
[2016-09-04] MEDS ORDERED: CHLORDIAZEPOXIDE 25MG PREPK#6 BTL TAKEHOME ONE (14:12)
[2016-09-04 14:47] VITALS: BP 133/75; PULSE 97; TEMP 97.7; O2SAT 92
== END 2016-09-04 14:47 | disposition home or self-care (01) ==
LOC: EDUNIT#
DX: F10.229 Alcohol dependence with intoxication, unspecified (principal); I10 Essential (primary) hypertension; J44.9 Chronic obstructive pulmonary disease, unspecified; F17.200 Nicotine dependence, unspecified, uncomplicated
CPT/HCPCS: G0480

== ENCOUNTER 2016-09-06 19:20 | Emergency (ER) | payer OTHER, MEDICAID ==
[2016-09-06 19:28] VITALS: TEMP 97.7
--- NOTE | 2016-09-06 19:35 | EDPHY ---
H & P Time Seen by Provider: 09/06/16 19:22 HPI/ROS: Chief complaint. Seizure HPI. 51-year-old male well-known to the emergency department here by EMS after having a seizure at the [facility]. He has not had a drink in 2 days. He had been very tremulous the last couple days but not as much today. He normally takes Dilantin but has not been taking Dilantin because of finances. He did not bite his tongue. He does not have injury. He wants to return to the [facility]. Blood sugar 103 per EMS ROS Constitutional. no fever/chills, no weakness Eyes. no problems with vision ENT. no sore throat, no nasal drainage Cardiovascular. no chest pain Respiratory. no shortness of breath, no cough Abdominal. no abdominal pain, no nausea/vomiting, no diarrhea . no problems urinating MS. no calf pain/swelling, no neck/back pain, no joint pain Skin. no rash Lymph. no swollen glands Neuro. Seizure Past Medical/Surgical History: Alcoholism, seizure disorder Social History: Single, daily smoker, no alcohol for several days Smoking Status: Heavy smoker Physical Exam: General Appearance: Alert well-developed male no distress vital signs stable Eyes: Pupils equal and round no pallor or injection. ENT, Mouth: Mucous membranes are moist. Respiratory: There are no retractions, lungs are clear to auscultation. Cardiovascular: Regular rate and rhythm. Gastrointestinal: Abdomen is soft and nontender, no masses, bowel sounds normal. Neurological: Awake and alert, sensory and motor exams grossly normal. Skin: Warm and dry, no rashes. Musculoskeletal: Neck is supple nontender. Extremities symmetrical, full range of motion. Psychiatric: Patient is oriented X 3, there is no agitation. Constitutional: Initial Vital Signs Temperature (C) 36.5 C 09/06/16 19:26 Heart Rate 109 H 09/06/16 19:26 Respiratory Rate 18 09/06/16 19:26 Blood Pressure 153/105 H 09/06/16 19:26 O2 Sat (%) 96 09/06/16 19:26 O2 Delivery Mode Room Air Allergies/Adverse Reactions: gabapentin Allergy (Verified 09/02/16 18:58) bee stings Allergy (Severe, Uncoded 09/02/16 18:58) Anaphylaxis Home Medications: Medication Instructions Recorded Lisinopril/Hctz 20/12.5MG 1 ea PO DAILY 08/01/16 [Zestoretic/Prinzide 20/12.5MG (*)] Ipratropium/Albuterol [Duoneb (*)] 3 ml IH 08/18/16 Oxycodone HCl 5 mg PO 08/18/16 Phenytoin Sodium Extended 100 mg PO 08/18/16 [Dilantin] Phenytoin Sodium Extended 300 mg PO DAILY #9 capsule 08/21/16 [Dilantin] ADVAIR HFA 230-21 MCG INHALER 08/30/16 Medical Decision Making Procedures: Dilantin 500 mg orally. Librium 1 p.o. by mouth ED Course/Re-evaluation: Serial evaluations patient remained stable. Again he would like to go back to the [facility]. We discussed treatment plan including criteria for return importance of follow-up further evaluation. He expresses understanding and agreement Differential Diagnosis: Seizure disorder not taking Dilantin. Also this is likely alcohol withdrawal seizure. No evidence for CVA intracranial bleeding Departure - Departure Disposition: Home, Routine, Self-Care Clinical Impression: Seizure Condition: Good Instructions: Epilepsy (ED) Additional Instructions: Return for another seizure. Referrals: [facility] [Other] - As per Instructions
[2016-09-06] MEDS ORDERED: PHENYTOIN 100 MG/4 ML UDL PO ONE (19:37)
[2016-09-06] MEDS ORDERED: chlordiazePOXIDE 25 MG CAP PO ONE (19:37)
[2016-09-06] MEDS ORDERED: PHENYTOIN SODIUM EXTENDED 100 MG CAP PO ONE (20:30)
[2016-09-06 20:50] VITALS: BP 149/100; PULSE 89; RESP 16; O2SAT 99
[2016-09-06] MEDS ORDERED: IBUPROFEN 600 MG TAB PO ONE (20:51)
== END 2016-09-06 21:00 | disposition home or self-care (01) ==
LOC: EDUNIT#
DX: G40.909 Epilepsy, unspecified, not intractable, without status epilepticus (principal); F17.200 Nicotine dependence, unspecified, uncomplicated

== ENCOUNTER 2016-09-17 19:19 | Emergency (ER) | payer OTHER, MEDICAID ==
[2016-09-17 20:04] VITALS: BP 152/98; PULSE 91; RESP 20; O2SAT 99
--- NOTE | 2016-09-17 20:28 | EDPHY ---
H & P Stated Complaint: ETOH, approx 2 pints vodka per EMS, c/o neck/back pain x 2 days - Personal History Current Tetanus/Diphtheria Vaccine: Yes Tetanus Vaccine Date: 2010 - Medical/Surgical History Hx Asthma: No Hx Chronic Respiratory Disease: Yes Hx Diabetes: No Hx Cardiac Disease: No Hx Renal Disease: No Hx Cirrhosis: No Hx Alcoholism: Yes Hx HIV/AIDS: No Hx Splenectomy or Spleen Trauma: No Other PMH: PMH: htn, depression/anxiety,chronic back pain. [id number], rolanda,left knee,gastric bypass, COPD, epilepsy, ETOH - Social History Smoking Status: Heavy smoker Constitutional: Initial Vital Signs Temperature (C) 36.5 C 09/17/16 19:25 Heart Rate 94 09/17/16 19:25 Respiratory Rate 16 09/17/16 19:25 Blood Pressure 144/90 H 09/17/16 19:25 O2 Sat (%) 95 09/17/16 19:25 O2 Delivery Mode Room Air Allergies/Adverse Reactions: gabapentin Allergy (Verified 09/17/16 19:27) bee stings Allergy (Severe, Uncoded 09/17/16 19:27) Anaphylaxis Home Medications: Medication Instructions Recorded Lisinopril/Hctz 20/12.5MG 1 ea PO DAILY 08/01/16 [Zestoretic/Prinzide 20/12.5MG (*)] Ipratropium/Albuterol [Duoneb (*)] 3 ml IH 08/18/16 Oxycodone HCl 5 mg PO 08/18/16 Phenytoin Sodium Extended 100 mg PO 08/18/16 [Dilantin] Phenytoin Sodium Extended 300 mg PO DAILY #9 capsule 08/21/16 [Dilantin] ADVAIR HFA 230-21 MCG INHALER 08/30/16 LORazepam [Ativan] 1 mg PO DAILY 09/17/16 Medical Decision Making - Diagnostics Imaging Results: Imaging Impressions Head CT 09/17/16 19:42 Impression: No evidence for acute intracranial abnormality. Results called and discussed with Mariaelena Rousseau NP at 09/17/2016 20:20. ED Course/Re-evaluation: CHIEF COMPLAINT: Alcohol intoxication and recent fall with a headache HISTORY OF PRESENT ILLNESS: This patient is a 51-year-old male who is here for his 30 second visit this year due to chronic alcoholism and multiple falls. He is complaining of a headache and he thinks he fell again but his memory is not too clear. He has recent sutures above his left eye under his left eye from a different hospital but he is not sure where. He otherwise has no complaints. REVIEW OF SYSTEMS: A 10 point review of systems was performed and is negative with the exception of the elements mentioned in the history of present illness. PHYSICAL EXAM: HR, BP, O2 Sat, RR. Temp noted General Appearance: Alert, well hydrated, appropriate, and non-toxic appearing. Head: Atraumatic without scalp tenderness or obvious injury Eyes: Pupils equal, round, reactive to light and accommodation, EOMI, no trauma , no injection. No extraocular entrapment. Ears: Clear bilaterally, no perforation, normal landmarks Nose: Atraumatic, no rhinorrhea, clear. Throat: There is no erythema or exudates, no lesions, normal tonsils, mucus membranes moist. Neck: Supple, 2+ carotid upstroke, nontender, no lymphadenopathy. Respiratory: No retractions, no distress, no wheezes, and no accessory muscle use. Lungs are clear to auscultation bilaterally. Cardiovascular: Regular rate and rhythm, no murmurs, rubs, or gallops. Bilateral carotid, radial, dorsalis pedis, and posterior tibial pulses intact. Good capillary refill all extremities. Gastrointestinal: Abdomen is soft, nontender, non-distended, no masses, no rebound, no guarding, no peritoneal signs. Musculoskeletal: Normal active ROM of all extremities, atraumatic. Neurological: Alert, appropriate, and interactive. The patient has normal DTRs and non-focal cranial nerves, motor, sensory, and cerebellar exam. Skin: Mild erythema around the suture sites possibly early infection. No rashes, good turgor, no nodules on palpation. Past medical history: Alcohol dependence and seizures and multiple falls Past surgical history: Noncontributory Family history: Patient unwilling to share Social history: Chronic alcoholic, homeless lives on the streets, does not have a job, abuses whenever possible drugs alcohol or tobacco that is available. DIAGNOSTICS/PROCEDURES/CRITICAL CARE TIME: Study: CT of the head without contrast Indication: trauma Results: CT scan of the head without contrast was obtained. The results of the study are normal. The study was read by the radiologist, Dr. Krishna Ac. I viewed the images myself on the PACS system. DIFFERENTIAL DIAGNOSIS: The differential diagnosis for the patient's head injury included but was not limited to concussion, skull fracture, intra- parenchymal contusion, subarachnoid, subdural and epidural hematoma. MEDICAL DECISION MAKING: I evaluated this patient with Mariaelena Rousseau. I have evaluated his wounds. I assessed him physically. He has no acute symptoms but since he has such persistent alcoholic and has a fairly poor memory of any events we decided to perform a CT scan of his head since it appears that he keeps falling. There is no need to CT his cervical spine which is moving all over the place and is pain- free and there is certainly no need is CT his maxillofacial area because he was recently sutured worked up at another hospital. The sutures do have a little bit of erythema around them. We will start him on some oral antibiotics including Keflex and Bactrim. CT scan of the head is unremarkable. [facility]. Departure - Departure Disposition: Home, Routine, Self-Care Clinical Impression: Alcohol dependence Qualifiers: Substance use status: with intoxication Complication of substance-induced condition: with unspecified complication Qualified Code(s): F10.229 - Alcohol dependence with intoxication, unspecified Alcohol intoxication Qualifiers: Complication of substance-induced condition: uncomplicated Qualified Code(s): F10.920 - Alcohol use, unspecified with intoxication, uncomplicated Condition: Good Instructions: Alcohol Intoxication (ED) Referrals: [facility] [Other] - As per Instructions
[2016-09-17] MEDS: SULFAMETHOX/TMP 800/160 MG 1 TAB PO ONE (20:39)
[2016-09-17] MEDS: CEPHALEXIN 500 MG CAP PO ONE (20:39)
[2016-09-17 20:43] VITALS: TEMP 97.5
== END 2016-09-17 20:43 | disposition home or self-care (01) ==
LOC: EDUNIT#
DX: F10.220 Alcohol dependence with intoxication, uncomplicated (principal); I10 Essential (primary) hypertension; J44.9 Chronic obstructive pulmonary disease, unspecified; F17.200 Nicotine dependence, unspecified, uncomplicated

== ENCOUNTER 2016-09-19 03:50 | Emergency (ER) | payer OTHER, MEDICAID ==
[2016-09-19] MEDS ORDERED: IBUPROFEN 200 MG TAB PO ONE (03:52)
[2016-09-19] MEDS ORDERED: PHENYTOIN SODIUM EXTENDED 100 MG CAP PO ONE (03:52)
--- NOTE | 2016-09-19 03:56 | EDPHY ---
H & P HPI/ROS: HPI CHIEF COMPLAINT: Seizure, left 5th digit pain HISTORY OF PRESENT ILLNESS: This patient 51-year-old male well known to myself as well as in the emergency room this is 3 ER visit this year. He is an alcoholic. Homeless. Has a seizure disorder but noncompliant with seizure medications. He reports that he had a seizure this evening around midnight he injured his left 5th digit on his left hand. He thinks it is broken. Decided call 911 and was transported here to the emergency room. He is living under local [place]. He denies any other areas of pain. Past Medical History: Seizure disorder, medication noncompliance, alcoholism, alcohol abuse, alcohol withdrawal seizures, chronic back pain, homelessness Past Surgical History: No recent surgery Social History: Homeless, resides under a local [place], endorses daily alcohol last drink earlier this evening, denies any illicit drugs this evening Family History: Noncontributory ROS REVIEW OF SYSTEMS: A comprehensive 10 point review of systems is otherwise negative aside from elements mentioned in the history of present illness. Exam Constitutional triage nursing summary reviewed, vital signs reviewed, awake/ alert. Eyes normal conjunctivae and sclera, EOMI, PERRLA. HENT normal inspection, atraumatic, moist mucus membranes, no epistaxis, neck supple/ no meningismus, no raccoon eyes. Respiratory clear to auscultation bilaterally, normal breath sounds, no respiratory distress, no wheezing. Cardiovascular rate normal, regular rhythm, no murmur, no edema, distal pulses normal. Gastrointestinal soft, non-tender, no rebound, no guarding, normal bowel sounds, no distension, no pulsatile mass. Genitourinary no CVA tenderness. Musculoskeletal left hand: Tender palpation over the 5th digit. Neurovascular intact. Full range of motion. But has pain with range of motion. No significant ecchymosis. No significant malalignment. Normal thumb to 5th digit opposition. no midline vertebral tenderness, full range of motion, no calf swelling, no tenderness of extremities, no meningismus, good pulses, neurovascularly intact. Skin multiple abrasions at various stages of healing cross his face arms. pink, warm, & dry, no rash, skin atraumatic. Neurologic awake, alert and oriented x 3, AAOx3, moves all 4 extremities equally, motor intact, sensory intact, CN II-XII intact, normal cerebellar, normal vision, normal speech. Psychiatric normal mood/affect. Heme/Lymph/Immune no lymphadenopathy. Differential Diagnosis: Includes but is not limited to in a particular order epilepsy with medication noncompliance, seizure, finger fracture, finger dislocation, soft tissue injury Medical Decision Making: Plan for this patient oral Dilantin. P.o. 300 mg. Ibuprofen 800 mg. X-ray 5th digit left hand. Re-evaluation: 0450AM: I did review this patient's left hand 5th digit x-ray. It appears to be dislocation. Is not visualize a fracture. He will need a digital block and reduction of this dislocation. Procedure: Reduction of Dislocated Finger. Under sterile conditions I did perform a digital block. Lidocaine 1% without epinephrine was used. 5 cc were instilled into the web space of his left 5th digit with good anesthetic of his left 5th digit. Prior to instilling the injection his finger was cleansed and cleaned copiously alcohol swabs for sterile injection site. He tolerated this very well. I then applied traction to the distal aspect of his finger and relocated his distal finger dislocation. Post reduction he is neurovascular intact good cap refill is full range of motion. Will perform x-ray to rule out fracture. And splint. Post reduction x-ray is pending. Splint placement pending. After these are done Patient be discharged from the emergency room.. Repeat x-ray of left 5th digit shows good reduction. Good anatomical position. I do not appreciate a fracture. He has been splinted. Hand surgery follow- up. Source: Patient, Police, EMS - Personal History Tetanus Vaccine Date: 2010 - Medical/Surgical History Hx Asthma: No Hx Chronic Respiratory Disease: Yes Hx Diabetes: No Hx Cardiac Disease: No Hx Renal Disease: No Hx Cirrhosis: No Hx Alcoholism: Yes Hx HIV/AIDS: No Hx Splenectomy or Spleen Trauma: No Other PMH: PMH: htn, depression/anxiety,chronic back pain. [id number], rolanda,left knee,gastric bypass, COPD, epilepsy, ETOH - Social History Smoking Status: Heavy smoker Constitutional: Initial Vital Signs Temperature (C) 36.7 C 09/19/16 03:55 Heart Rate 98 09/19/16 03:55 Respiratory Rate 16 09/19/16 03:55 Blood Pressure 153/100 H 09/19/16 03:55 O2 Sat (%) 94 09/19/16 03:55 O2 Delivery Mode Room Air Allergies/Adverse Reactions: gabapentin Allergy (Verified 09/17/16 19:27) bee stings Allergy (Severe, Uncoded 09/17/16 19:27) Anaphylaxis Home Medications: Medication Instructions Recorded Lisinopril/Hctz 20/12.5MG 1 ea PO DAILY 08/01/16 [Zestoretic/Prinzide 20/12.5MG (*)] Ipratropium/Albuterol [Duoneb (*)] 3 ml IH 08/18/16 Oxycodone HCl 5 mg PO 08/18/16 Phenytoin Sodium Extended 100 mg PO 08/18/16 [Dilantin] Phenytoin Sodium Extended 300 mg PO DAILY #9 capsule 08/21/16 [Dilantin] ADVAIR HFA 230-21 MCG INHALER 08/30/16 Cephalexin [Keflex (RX)] 500 mg PO TID #30 cap 09/17/16 LORazepam [Ativan] 1 mg PO DAILY 09/17/16 Sulfamethox/Tmp 800/160 mg 1 tab PO BID #14 tab 09/17/16 [Bactrim Ds] Medical Decision Making - Data Points Medications Given: Discontinued Medications Ibuprofen (Motrin) 800 mg PO EDNOW ONE Stop: 09/19/16 03:53 Last Admin: 09/19/16 04:05 Dose: 800 mg Phenytoin Sodium (Dilantin) 300 mg PO EDNOW ONE Stop: 09/19/16 03:53 Last Admin: 09/19/16 04:25 Dose: 300 mg Departure - Departure Disposition: Home, Routine, Self-Care Clinical Impression: Seizure Finger dislocation Qualifiers: Encounter type: initial encounter Qualified Code(s): S63.259A - Unspecified dislocation of unspecified finger, initial encounter Condition: Good Instructions: Epilepsy (ED), Finger Dislocation (ED) Referrals: NONE *PRIMARY CARE P,. [Primary Care Provider] - As per Instructions Antoine Renteria MD [Medical Doctor] - As per Instructions
[2016-09-19 03:59] VITALS: TEMP 98.1
[2016-09-19] MEDS ORDERED: CHLORDIAZEPOXIDE 25MG PREPK#6 BTL TAKEHOME ONE ×2 (05:13→05:17)
[2016-09-19 05:20] VITALS: BP 155/95; PULSE 90; RESP 18; O2SAT 91
== END 2016-09-19 05:23 | disposition home or self-care (01) ==
PROC: 0RSXXZZ Reposition Left Finger Phalangeal Joint, External Approach (ICD-10-PCS; principal; 2016-09-19)
DX: S63.287A Dislocation of proximal interphalangeal joint of left little finger, initial encounter (principal); G40.909 Epilepsy, unspecified, not intractable, without status epilepticus; I10 Essential (primary) hypertension; J44.9 Chronic obstructive pulmonary disease, unspecified; F17.200 Nicotine dependence, unspecified, uncomplicated; X58.XXXA Exposure to other specified factors, initial encounter; Y92.89 Other specified places as the place of occurrence of the external cause; Y99.8 Other external cause status; Y93.89 Activity, other specified
CPT/HCPCS: 26770; 73140; 99283; L3925

== ENCOUNTER 2016-10-07 08:28 | Emergency (ER) | payer MEDICAID, OTHER ==
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
[2016-10-07 08:36] VITALS: TEMP 97.9
[2016-10-07] MEDS ORDERED: ACETAMINOPHEN 325 MG TAB PO ONE (08:50)
[2016-10-07] MEDS ORDERED: CHLORDIAZEPOXIDE 25MG PREPK#6 BTL TAKEHOME ONE (11:20)
[2016-10-07] MEDS ORDERED: LORazepam 1 MG TAB PO ONE (12:01)
[2016-10-07] MEDS ORDERED: NICOTINE POLACRILEX 2 MG GUM B PRN (12:21)
[2016-10-07] MEDS ORDERED: NICOTINE 21 MG/24 HR PATCH TD ONE (12:22)
[2016-10-07 13:11] VITALS: O2SAT 95
[2016-10-07 13:12] VITALS: BP 142/98; PULSE 98; RESP 16
== END 2016-10-07 13:11 | disposition home or self-care (01) ==
LOC: EDUNIT#
DX: S16.1XXA Strain of muscle, fascia and tendon at neck level, initial encounter (principal); S10.91XA Abrasion of unspecified part of neck, initial encounter; S29.012A Strain of muscle and tendon of back wall of thorax, initial encounter; I10 Essential (primary) hypertension; J44.9 Chronic obstructive pulmonary disease, unspecified; F17.200 Nicotine dependence, unspecified, uncomplicated; S00.211A Abrasion of right eyelid and periocular area, initial encounter; S00.411A Abrasion of right ear, initial encounter; S60.410A Abrasion of right index finger, initial encounter; V18.4XXA Pedal cycle driver injured in noncollision transport accident in traffic accident, initial encounter; Y92.410 Unspecified street and highway as the place of occurrence of the external cause; Y99.8 Other external cause status; Y93.55 Activity, bike riding

== ENCOUNTER 2016-10-15 19:56 | Emergency (ER) | payer OTHER, MEDICAID ==
[2016-10-15 20:08] VITALS: RESP 18
--- NOTE | 2016-10-15 20:23 | EDPHY ---
H & P Stated Complaint: BIB EMS FOUND in [place] endorsed [place], by EMS. - Personal History Current Tetanus/Diphtheria Vaccine: Yes Current Tetanus Diphtheria and Acellular Pertussis (TDAP): Yes Tetanus Vaccine Date: 2015 - Medical/Surgical History Hx Asthma: No Hx Chronic Respiratory Disease: Yes Hx Diabetes: No Hx Cardiac Disease: No Hx Renal Disease: No Hx Cirrhosis: No Hx Alcoholism: Yes Hx HIV/AIDS: No Hx Splenectomy or Spleen Trauma: No Other PMH: PMH: htn, depression/anxiety,chronic back pain. [id number]-fusion, ro[place]a,left knee,gastric bypass, COPD, epilepsy, ETOH - Social History Smoking Status: Heavy smoker Time Seen by Provider: 10/15/16 20:08 HPI/ROS: CHIEF COMPLAINT: Patient has no complaints HISTORY OF PRESENT ILLNESS: This is a 51 the year old male who is here for the 34th time this year. He was reportedly found sitting in the [place], intoxicated. He has a history of alcohol abuse and tells me that he has had a pint of vodka today. He apparently expressed suicidal ideation to the county agricultural agent , prompting the paramedics to be summoned. He told the paramedics that he went to sleep and did not wake up that would be all right with him. He denies suicidality to me. He does not have a plan to harm himself. He denies homicidality. He denies any trauma tonight. He does have a history of frequent falls and apparently history of a seizure disorder--it is not clear to me whether his seizures are related to alcohol withdrawal or whether he has an underlying seizure disorder. REVIEW OF SYSTEMS: A ten point review of systems was performed and is negative with the exception of the items mentioned in the HPI. Past medical history: 1. Alcohol abuse 2. Hypertension 3. Depression and anxiety 4. Seizures 5. COPD Past surgical history: 1. Gastric bypass 2. S1-L2 fusion 3. Left knee surgery 4. Cholecystectomy Social history: He is homeless. He has a known history of alcohol abuse. General Appearance: Alert. Vital signs reviewed. Head: Normocephalic. He has sutures on his upper lip and also below his left eye. There is an old abrasion on top of his head. Eyes: Pupils equal and round, no conjunctival injection, no discharge. Anicteric. ENT, Mouth: Mucous membranes are moist, no oropharyngeal erythema or edema. Neck: No lymphadenopathy, nontender to she of the cervical spine Respiratory: Lungs with scattered wheezes. Cardiovascular: Regular rate and rhythm; no murmur, rub, or gallop. Gastrointestinal: Abdomen is soft and nontender, no masses or organomegaly, bowel sounds normal. Skin: Warm and dry, no rashes on exposed skin, normal color. Back: Nontender to palpation over the thoracolumbar spine. Extremities: Abrasions right forearm extending on to the wrist. Full active range of motion of his right wrist. Neurological: Alert and oriented. Moving all four extremities easily and equally. SAAD. EOMI. Facial expression symmetric. Tongue midline. Strength 5/5 in major motor groups upper and lower extremities. Sensation intact to light touch over all 4 extremities. Psychiatric: Normal affect. No agitation, cooperative (Kya Blum) Constitutional: Initial Vital Signs Temperature (C) 36.7 C 10/15/16 20:02 Heart Rate 98 10/15/16 20:02 Respiratory Rate 18 10/15/16 20:02 Blood Pressure 145/86 H 10/15/16 20:02 O2 Sat (%) 93 10/15/16 20:02 O2 Delivery Mode Room Air Allergies/Adverse Reactions: gabapentin Allergy (Verified 10/07/16 08:34) bee stings Allergy (Severe, Uncoded 10/07/16 08:34) Anaphylaxis Home Medications: Medication Instructions Recorded Lisinopril/Hctz 20/12.5MG 1 ea PO DAILY 08/01/16 [Zestoretic/Prinzide 20/12.5MG (*)] Ipratropium/Albuterol [Duoneb (*)] 3 ml IH 08/18/16 Oxycodone HCl 5 mg PO 08/18/16 Phenytoin Sodium Extended 100 mg PO 08/18/16 [Dilantin] Phenytoin Sodium Extended 300 mg PO DAILY #9 capsule 08/21/16 [Dilantin] ADVAIR HFA 230-21 MCG INHALER 08/30/16 Cephalexin [Keflex (RX)] 500 mg PO TID #30 cap 09/17/16 LORazepam [Ativan] 1 mg PO DAILY 09/17/16 Sulfamethox/Tmp 800/160 mg 1 tab PO BID #14 tab 09/17/16 [Bactrim Ds] Phenytoin Sodium Extended 100 mg PO TID #90 cap 09/19/16 [Dilantin (*)] Medical Decision Making ED Course/Re-evaluation: Patient was brought here out of concern about suicidality. I have spoken with him twice and he continues to denies suicidality or suicide plan. He does admit to drinking alcohol. I asked him if he wanted to speak with a counselor and he said that he did not. Apparently the statements that he made to both the police and the paramedics were concerning enough that he was placed on an M1 hold. Since he is intoxicated I will proceed with lab work and toxicology. Once he is sober I think that it would be reasonable to talk to him again about whether he is in fact suicidal or not. If he does not express suicidality at that point I think lifting the hold and discharging him would be appropriate. His care will be transferred to the incoming physician at 10:00 p.m., change of shift. (Kya Blum) 0413AM: I did re-evaluate this patient. He is declining that he suicidal. He states that he does not want hurt himself or anybody else. He is requesting that he gets discharged with the bus start running. He is not stay here in the hospital. Does not want to go to the [facility]. He would like to be discharged from the ER. I did re-evaluate he is resting comfortably. He is, cooperative. Does not want hurt himself or anybody else. The bus started approximately 45 minutes at which point he can be discharged. I will lift his hold as he is not suicidal. (Yang Solomon) - Data Points Laboratory Results: Laboratory Results 10/15/16 20:53 10/15/16 20:53 10/15/16 10/15/16 10/15/16 23:50 20:53 20:53 WBC 6.03 10^3/uL 10^3/uL (3.80-9.50) RBC 4.36 10^6/uL L 10^6/uL (4.40-6.38) Hgb 11.6 g/dL L g/dL (13.7-17.5) Hct 36.9 % L % (40.0-51.0) MCV 84.6 fL fL (81.5-99.8) MCH 26.6 pg L pg (27.9-34.1) MCHC 31.4 g/dL L g/dL (32.4-36.7) RDW 19.5 % H % (11.5-15.2) Plt Count 186 10^3/uL 10^3/uL (150-400) MPV 9.5 fL fL (8.7-11.7) Neut % (Auto) 62.3 % % (39.3-74.2) Lymph % (Auto) 25.9 % % (15.0-45.0) [place] % (Auto) 10.1 % % (4.5-13.0) Eos % (Auto) 0.7 % % (0.6-7.6) Baso % (Auto) 0.7 % % (0.3-1.7) Nucleat RBC Rel Count 0.0 % % (0.0-0.2) Absolute Neuts (auto) 3.76 10^3/uL 10^3/uL (1.70-6.50) Absolute Lymphs (auto) 1.56 10^3/uL 10^3/uL (1.00-3.00) Absolute Monos (auto) 0.61 10^3/uL 10^3/uL (0.30-0.80) Absolute Eos (auto) 0.04 10^3/uL 10^3/uL (0.03-0.40) Absolute Basos (auto) 0.04 10^3/uL 10^3/uL (0.02-0.10) Absolute Nucleated RBC 0.00 10^3/uL 10^3/uL (0-0.01) Immature Gran % 0.3 % % (0.0-1.1) Immature Gran # 0.02 10^3/uL 10^3/uL (0.00-0.10) Sodium 138 mEq/L mEq/L (134-144) Potassium 3.7 mEq/L mEq/L (3.5-5.2) Chloride 104 mEq/L mEq/L (97-110) Carbon Dioxide 18 mEq/l L mEq/l (22-31) Anion Gap 16 mEq/L mEq/L (8-16) BUN 11 mg/dL mg/dL (7-23) Creatinine 0.8 mg/dL mg/dL (0.7-1.3) Estimated GFR > 60 Glucose 90 mg/dL mg/dL (70-100) Calcium 8.2 mg/dL L mg/dL (8.5-10.4) Urine Opiates Screen NEGATIVE (NEGATIVE) Urine Barbiturates NON-NEGATIVE H (NEGATIVE) Ur Phencyclidine Scrn NEGATIVE (NEGATIVE) Ur Amphetamine Screen NEGATIVE (NEGATIVE) U Benzodiazepines Scrn NON-NEGATIVE H (NEGATIVE) Urine Cocaine Screen NEGATIVE (NEGATIVE) U Marijuana (THC) Screen NEGATIVE (NEGATIVE) Ethyl Alcohol 253 mg/dL H mg/dL (0-10) Medications Given: Discontinued Medications Albuterol/Ipratropium (Duoneb) 3 ml IH EDNOW ONE Stop: 10/15/16 20:28 Last Admin: 10/15/16 20:30 Dose: 3 ml Departure - Departure Disposition: Home, Routine, Self-Care Clinical Impression: Alcohol intoxication Qualifiers: Complication of substance-induced condition: uncomplicated Qualified Code(s): F10.920 - Alcohol use, unspecified with intoxication, uncomplicated Condition: Good Instructions: Alcohol Intoxication (ED) Referrals: Patient,NotPresent [Unknown] - As per Instructions
[2016-10-15] MEDS ORDERED: IPRATROPIUM/ALBUTEROL 3 ML DEYVIAL ONE (20:25)
[2016-10-15] MEDS ORDERED: IPRATROPIUM/ALBUTEROL 3 ML DEYVIAL IH ONE (20:27)
[2016-10-15 21:04] LABS: % IMMATURE GRANULYOCYTES 0.3 % (0.0-1.1); ABSOLUTE IMMATURE GRANULOCYTES 0.02 10^3/uL (0.00-0.10); ADD DIFF? NO; ADD MORPH? NO; ADD SCAN? NO; ATYPICAL LYMPHOCYTE FLAG 10 (0-99); FRAGMENT RBC FLAG 0 (0-99); HEMATOCRIT 36.9 % (40.0-51.0); HEMOGLOBIN 11.6 g/dL (13.7-17.5); LEFT SHIFT FLG 10 (0-99); LIPEMIA HEMOLYSIS FLAG 80 (0-99); MEAN CELL HEMOGLOBIN 26.6 pg (27.9-34.1); MEAN CELL HEMOGLOBIN CONCENTR. 31.4 g/dL (32.4-36.7); MEAN CELL VOLUME 84.6 fL (81.5-99.8); MEAN PLATELET VOLUME 9.5 fL (8.7-11.7); PLATELET CLUMPS FLAG 0 (0-99); PLATELET COUNT 186 10^3/uL (150-400); RED BLOOD CELL COUNT 4.36 10^6/uL (4.40-6.38); RED CELL DISTRIBUTION WIDTH 19.5 % (11.5-15.2)
[2016-10-15 21:17] LABS: ANION GAP 16 mEq/L (8-16); CALCIUM 8.2 mg/dL (8.5-10.4); CARBON DIOXIDE 18 mEq/l (22-31); CHLORIDE 104 mEq/L (97-110); CREATININE 0.8 mg/dL (0.7-1.3); ETHANOL SERUM 253 mg/dL (0-10); GLOMERULAR FILTRATION RATE > 60; GLUCOSE 90 mg/dL (70-100); POTASSIUM 3.7 mEq/L (3.5-5.2); SODIUM 138 mEq/L (134-144)
[2016-10-15 22:47] VITALS: TEMP 98.2
[2016-10-16] MEDS ORDERED: NS 1,000 ML IV ONE (04:11)
[2016-10-16] MEDS ORDERED: LORazepam 2 MG/ML INJ IVP ONE ×2 (04:11→04:53)
[2016-10-16 05:03] VITALS: BP 157/86; PULSE 100; O2SAT 96
== END 2016-10-16 05:13 | disposition home or self-care (01) ==
LOC: EDUNIT#
DX: F10.920 Alcohol use, unspecified with intoxication, uncomplicated (principal); I10 Essential (primary) hypertension; J44.9 Chronic obstructive pulmonary disease, unspecified; F17.200 Nicotine dependence, unspecified, uncomplicated
CPT/HCPCS: 96361; 96374; 99285; J2060; 80305; G0480

== ENCOUNTER 2016-10-16 10:07 | Emergency (ER) | payer MEDICAID ==
[2016-10-16 10:17] VITALS: BP 136/73; PULSE 93; RESP 16; O2SAT 96
== END 2016-10-16 10:48 | disposition left against medical advice (07) ==
LOC: EDUNIT#
DX: Z53.21 Procedure and treatment not carried out due to patient leaving prior to being seen by health care provider (principal)

== ENCOUNTER 2016-10-17 05:21 | Emergency (ER) | payer MEDICAID ==
[2016-10-17 05:34] VITALS: TEMP 97.7
--- NOTE | 2016-10-17 05:35 | EDPHY ---
H & P Stated Complaint: Cp Source: Patient, EMS - Personal History Tetanus Vaccine Date: 2015 - Medical/Surgical History Hx Asthma: No Hx Chronic Respiratory Disease: Yes Hx Diabetes: No Hx Cardiac Disease: No Hx Renal Disease: No Hx Cirrhosis: No Hx Alcoholism: Yes Hx HIV/AIDS: No Hx Splenectomy or Spleen Trauma: No Other PMH: PMH: htn, depression/anxiety,chronic back pain. [id number]-fusion, [place],left knee,gastric bypass, COPD, epilepsy, ETOH - Social History Smoking Status: Heavy smoker HPI/ROS: HPI CHIEF COMPLAINT: Chest Pain HISTORY OF PRESENT ILLNESS: Patient 51-year-old male well known to myself as well as the emergency room, he has significant past medical history for chronic back pain, COPD, alcohol abuse and daily alcoholism, tobacco abuse, presents emergency room with chest pain. He states his chest pain started approximately 2 hours ago feels like something heavy sitting on his chest. Otherwise no other symptoms. Denies nausea vomiting diaphoresis numbness or tingling or focal weakness. Denies referred pain. Symptoms present for 2 hours. Past Medical History: Alcohol abuse, daily alcohol use mom, tobacco abuse, COPD , chronic back pain, bipolar disorder Past Surgical History: No recent surgery Social History: Daily alcohol use, alcoholism, homelessness Family History: Noncontributory ROS REVIEW OF SYSTEMS: A comprehensive 10 point review of systems is otherwise negative aside from elements mentioned in the history of present illness. Exam Constitutional appears nontoxic no acute distress, triage nursing summary reviewed, vital signs reviewed, awake/alert. Eyes normal conjunctivae and sclera, EOMI, PERRLA. HENT FACE: Multiple abrasions present with old scabs present, facial swelling present, no signs of overt infection, moist mucus membranes, no epistaxis, neck supple/ no meningismus, no raccoon eyes. Respiratory clear to auscultation bilaterally, normal breath sounds, no respiratory distress, no wheezing. Cardiovascular rate normal, regular rhythm, no murmur, no edema, distal pulses normal. Gastrointestinal soft, non-tender, no rebound, no guarding, normal bowel sounds, no distension, no pulsatile mass. Genitourinary no CVA tenderness. Musculoskeletal no midline vertebral tenderness, full range of motion, no calf swelling, no tenderness of extremities, no meningismus, good pulses, neurovascularly intact. Skin pink, warm, & dry, no rash, skin atraumatic. Neurologic awake, alert and oriented x 3, AAOx3, moves all 4 extremities equally, motor intact, sensory intact, CN II-XII intact, normal cerebellar, normal vision, normal speech. Psychiatric normal mood/affect. Heme/Lymph/Immune no lymphadenopathy. Differential diagnosis includes but is not limited to: ACS, atypical chest pain , pneumothorax, pneumonia, pulmonary embolism, aortic dissection, congestive heart failure, tumor, musculoskeletal pain, esophageal pain, GERD, peptic ulcer disease, pancreatitis Medical Decision Making: Plan for this patient IV establishment, chest x-ray, EKG, troponin, full-dose aspirin, IV fluids morphine for pain control re- evaluate. Re-evaluation: CT scan of the head without IV contrast The results of the study are negative for acute intracranial traumatic injury The study was read by Dr. Mahoney. I viewed the images myself on the PACS system. EKG interpretation by me on record in [employer] system. Impression time of EKG 5:55 a.m., this is sinus rhythm rate of 97 EKG appears very similar morphology to previous EKG dated 09/07/2016 0733AM: Patient has multiple abrasions that are old on his face that been cleaned and dressed. Plan for this patient is feeling better after IV morphine. He denies being in alcohol withdrawal and denies acute alcohol intoxication. His initial EKG and troponin are negative. He will have a 2nd EKG and troponin 4 hours after arrival which will be 6-7 hours after symptom onset. If these are normal is unlikely this patient having a cardiac event. Plan will be for follow-up EKG and troponin. Re-evaluation. 0733AM: Patient is signed over to Dr. Cano follow-up EKG and troponin appropriate disposition. Re-evaluate. (Yang Solomon) Constitutional: Initial Vital Signs Temperature (C) 36.5 C 10/17/16 05:32 Heart Rate 102 H 10/17/16 05:32 Respiratory Rate 20 10/17/16 05:32 Blood Pressure 144/88 H 10/17/16 05:32 O2 Sat (%) 97 10/17/16 05:32 O2 Delivery Mode Room Air Allergies/Adverse Reactions: gabapentin Allergy (Verified 10/17/16 05:31) bee stings Allergy (Severe, Uncoded 10/07/16 08:34) Anaphylaxis Home Medications: Medication Instructions Recorded Lisinopril/Hctz 20/12.5MG 1 ea PO DAILY 08/01/16 [Zestoretic/Prinzide 20/12.5MG (*)] Ipratropium/Albuterol [Duoneb (*)] 3 ml IH 08/18/16 ADVAIR HFA 230-21 MCG INHALER 08/30/16 Medical Decision Making - Diagnostics EKG Interpretation: EKG interpreted by me: NSR, no ST/T changes. Interpretation: normal EKG (Afua Cano) Imaging Results: Imaging Impressions Chest X-Ray 10/17/16 05:37 Impression: Negative. No evidence of aspiration pneumonia. Head CT 10/17/16 05:55 Impression: Negative noncontrast CT of the brain. The study was performed as an emergency on-call case and discussed by telephone with Dr. Devaughn Antonio at 6:25 AM hrs. The final interpretation is concordant with the original communication. ED Course/Re-evaluation: 7:00 a.m.-I assumed care of this patient at shift change. He presents with chest pain, onset at 5:00 a.m.. The plan is to check a 2nd troponin and 2nd EKG. If these tests are normal, he can safely be discharged from the emergency department. 10:40 a.m.-repeat troponin is normal. Toradol 15 mg IV given. Breathalyzer 0.09. He will be discharged to the [facility]. (Afua Cano) - Data Points Laboratory Results: Laboratory Results 10/17/16 06:05 10/17/16 06:05 10/17/16 10/17/16 10/17/16 09:46 06:25 06:05 WBC RBC Hgb Hct MCV MCH MCHC RDW Plt Count MPV Neut % (Auto) Lymph % (Auto) [place] % (Auto) Eos % (Auto) Baso % (Auto) Nucleat RBC Rel Count Absolute Neuts (auto) Absolute Lymphs (auto) Absolute Monos (auto) Absolute Eos (auto) Absolute Basos (auto) Absolute Nucleated RBC Immature Gran % Immature Gran # Platelet Estimate Microcytic Cells Oval Macrocytes PT 12.7 SEC SEC (12.0-15.0) INR 0.96 (0.83-1.16) APTT 26.9 SEC SEC (23.0-38.0) Sodium 149 mEq/L H mEq/L (134-144) Potassium 3.9 mEq/L mEq/L (3.5-5.2) Chloride 105 mEq/L mEq/L (97-110) Carbon Dioxide 21 mEq/l L mEq/l (22-31) Anion Gap 23 mEq/L H mEq/L (8-16) BUN 11 mg/dL mg/dL (7-23) Creatinine 0.8 mg/dL mg/dL (0.7-1.3) Estimated GFR > 60 Glucose 79 mg/dL mg/dL (70-100) Calcium 8.7 mg/dL mg/dL (8.5-10.4) Magnesium 2.2 mg/dL mg/dL (1.6-2.3) Total Bilirubin 0.5 mg/dL mg/dL (0.1-1.4) Conjugated Bilirubin 0.4 mg/dL mg/dL (0.0-0.5) Unconjugated Bilirubin 0.1 mg/dL mg/dL (0.0-1.1) AST 58 IU/L IU/L (17-59) ALT 63 IU/L IU/L (21-72) Alkaline Phosphatase 248 IU/L H IU/L (38-126) Creatine Kinase 474 IU/L H IU/L (0-224) CK-MB (CK-2) Fraction 9.13 ng/mL H ng/mL (0.00-3.19) CK-MB (CK-2) % 1.9 % % (0.0-4.0) Creatine Kinase Interp NEGATIVE (NEGATIVE) Troponin I < 0.012 ng/mL ng/mL < 0.012 ng/mL ng/mL (0.000-0.034) (0.000-0.034) NT-Pro-B Natriuret Pep 37 pg/mL pg/mL (0-125) Total Protein 9.0 g/dL H g/dL (6.3-8.2) Albumin 5.1 g/dL H g/dL (3.5-5.0) Lipase 120 IU/L IU/L (23-300) 10/17/16 06:05 WBC 5.93 10^3/uL 10^3/uL (3.80-9.50) RBC 5.58 10^6/uL 10^6/uL (4.40-6.38) Hgb 14.8 g/dL g/dL (13.7-17.5) Hct 47.7 % D % (40.0-51.0) MCV 85.5 fL fL (81.5-99.8) MCH 26.5 pg L pg (27.9-34.1) MCHC 31.0 g/dL L g/dL (32.4-36.7) RDW 20.2 % H % (11.5-15.2) Plt Count 218 10^3/uL 10^3/uL (150-400) MPV 9.7 fL fL (8.7-11.7) Neut % (Auto) 69.1 % % (39.3-74.2) Lymph % (Auto) 22.8 % % (15.0-45.0) [place] % (Auto) 6.6 % % (4.5-13.0) Eos % (Auto) 0.8 % % (0.6-7.6) Baso % (Auto) 0.5 % % (0.3-1.7) Nucleat RBC Rel Count 0.0 % % (0.0-0.2) Absolute Neuts (auto) 4.10 10^3/uL 10^3/uL (1.70-6.50) Absolute Lymphs (auto) 1.35 10^3/uL 10^3/uL (1.00-3.00) Absolute Monos (auto) 0.39 10^3/uL 10^3/uL (0.30-0.80) Absolute Eos (auto) 0.05 10^3/uL 10^3/uL (0.03-0.40) Absolute Basos (auto) 0.03 10^3/uL 10^3/uL (0.02-0.10) Absolute Nucleated RBC 0.00 10^3/uL 10^3/uL (0-0.01) Immature Gran % 0.2 % % (0.0-1.1) Immature Gran # 0.01 10^3/uL 10^3/uL (0.00-0.10) Platelet Estimate ADEQUATE (ADEQ) Microcytic Cells 1+ H Oval Macrocytes 2+ H PT INR APTT Sodium Potassium Chloride Carbon Dioxide Anion Gap BUN Creatinine Estimated GFR Glucose Calcium Magnesium Total Bilirubin Conjugated Bilirubin Unconjugated Bilirubin AST ALT Alkaline Phosphatase Creatine Kinase CK-MB (CK-2) Fraction CK-MB (CK-2) % Creatine Kinase Interp Troponin I NT-Pro-B Natriuret Pep Total Protein Albumin Lipase Medications Given: Discontinued Medications Aspirin (Aspirin) 324 mg PO EDNOW ONE Stop: 10/17/16 05:38 Last Admin: 10/17/16 06:35 Dose: 324 mg Sodium Chloride (Ns) 1,000 mls @ 0 mls/hr IV EDNOW ONE; Wide Open PRN Reason: Protocol Stop: 10/17/16 05:38 Last Admin: 10/17/16 06:34 Dose: 1,000 mls Ketorolac Tromethamine (Toradol) 15 mg IVP EDNOW ONE Stop: 10/17/16 10:37 Last Admin: 10/17/16 10:40 Dose: 15 mg Morphine Sulfate (Morphine) 4 mg IVP EDNOW ONE Stop: 10/17/16 05:38 Last Admin: 10/17/16 06:34 Dose: 4 mg Morphine Sulfate (Morphine) 4 mg IVP EDNOW ONE Stop: 10/17/16 07:22 Last Admin: 10/17/16 07:32 Dose: 4 mg Ondansetron HCl (Zofran) 4 mg IVP EDNOW ONE Stop: 10/17/16 05:38 Last Admin: 10/17/16 06:34 Dose: 4 mg Departure - Departure Disposition: Home, Routine, Self-Care Clinical Impression: Chest pain Qualifiers: Chest pain type: precordial pain Qualified Code(s): R07.2 - Precordial pain Condition: Good Instructions: Chest Pain (ED) Additional Instructions: 1. Based upon the testing done in the Emergency Department today we see no evidence of a heart attack. 2. We are unable to fully exclude coronary artery disease based upon the testing available in the Emergency Department. 3. For this reason, we would like you to be seen by cardiology for consideration of additional testing within the next 3 days. 4. Please contact the head of data you have been referred to schedule this appointment as soon as possible. Their offices are typically open from 8:30am- 5pm M-F. 5. Please return to the Emergency Department immediately for any recurrent chest pain, difficulty breathing or other concerns. Referrals: Jade Villegas MD [Medical Doctor] - As per Instructions
[2016-10-17] MEDS ORDERED: NS 1,000 ML IV ONE (05:37)
[2016-10-17] MEDS ORDERED: ASPIRIN 81 MG CHEWABLE TAB PO ONE (05:37)
[2016-10-17] MEDS ORDERED: ONDANSETRON 4 MG/2 ML VIAL IVP ONE (05:37)
--- NOTE | 2016-10-17 05:57 | CPEKG ---
Heart Rate: 97 RR Interval: 619 P-R Interval: 164 QRSD Interval: 74 QT Interval: 388 QTC Interval: 493 P [place]: 32 QRS [place]: 43 T Wave [place]: 69 EKG Severity - BORDERLINE ECG - EKG Impression: SINUS RHYTHM EKG Impression: LOW VOLTAGE THROUGHOUT EKG Impression: BORDERLINE PROLONGED QT INTERVAL Electronically Signed By: Yang Solomon 17-Oct-2016 07:17:35
[2016-10-17 06:15] LABS: % IMMATURE GRANULYOCYTES 0.2 % (0.0-1.1); ABSOLUTE IMMATURE GRANULOCYTES 0.01 10^3/uL (0.00-0.10); ADD DIFF? NO; ADD MORPH? YES; ADD SCAN? NO; ATYPICAL LYMPHOCYTE FLAG 0 (0-99); FRAGMENT RBC FLAG 0 (0-99); HEMATOCRIT 47.7 % (40.0-51.0); HEMOGLOBIN 14.8 g/dL (13.7-17.5); LEFT SHIFT FLG 0 (0-99); LIPEMIA HEMOLYSIS FLAG 80 (0-99); MEAN CELL HEMOGLOBIN 26.5 pg (27.9-34.1); MEAN CELL VOLUME 85.5 fL (81.5-99.8); MEAN PLATELET VOLUME 9.7 fL (8.7-11.7); PLATELET CLUMPS FLAG 0 (0-99); PLATELET COUNT 218 10^3/uL (150-400); RED BLOOD CELL COUNT 5.58 10^6/uL (4.40-6.38)
[2016-10-17 06:22] LABS: RED CELL DISTRIBUTION WIDTH 20.2 % (11.5-15.2)
[2016-10-17 06:26] LABS: ALANINE AMINOTRANSFERASE 63 IU/L (21-72); ALBUMIN 5.1 g/dL (3.5-5.0); ALKALINE PHOSPHATASE 248 IU/L (38-126); ANION GAP 23 mEq/L (8-16); ASPARTATE AMINOTRANSFERASE 58 IU/L (17-59); BILIRUBIN,TOTAL 0.5 mg/dL (0.1-1.4); BILIRUBIN-CONJUGATED 0.4 mg/dL (0.0-0.5); BILIRUBIN-UNCONJUGATED 0.1 mg/dL (0.0-1.1); CALCIUM 8.7 mg/dL (8.5-10.4); CARBON DIOXIDE 21 mEq/l (22-31); CHLORIDE 105 mEq/L (97-110); CREATININE 0.8 mg/dL (0.7-1.3); GLOMERULAR FILTRATION RATE > 60; GLUCOSE 79 mg/dL (70-100); MAGNESIUM 2.2 mg/dL (1.6-2.3); POTASSIUM 3.9 mEq/L (3.5-5.2); SODIUM 149 mEq/L (134-144)
[2016-10-17 06:38] LABS: CK-MB INTERPRETATION NEGATIVE (NEGATIVE); TROPONIN I < 0.012 ng/mL (0.000-0.034)
[2016-10-17 06:40] LABS: CREATINE KINASE-MB FRACTION 9.13 ng/mL (0.00-3.19)
[2016-10-17 06:55] LABS: INR 0.96 (0.83-1.16); PROTIME(PATIENT) 12.7 SEC (12.0-15.0)
[2016-10-17 06:56] LABS: APTT 26.9 SEC (23.0-38.0)
[2016-10-17 07:02] LABS: MACROCYTES 2+; MICROCYTES 1+; PLATELET ESTIMATE ADEQUATE (ADEQ)
[2016-10-17 07:36] VITALS: RESP 18; O2SAT 92
--- NOTE | 2016-10-17 08:19 | CPEKG ---
Heart Rate: 93 RR Interval: 645 P-R Interval: 140 QRSD Interval: 78 QT Interval: 384 QTC Interval: 478 P [place]: 12 QRS [place]: 32 T Wave [place]: 70 EKG Severity - BORDERLINE ECG - EKG Impression: SINUS RHYTHM EKG Impression: BORDERLINE PROLONGED QT INTERVAL Electronically Signed By: Afua Cano 17-Oct-2016 14:04:38
[2016-10-17] MEDS ORDERED: KETOROLAC 15 MG/1 ML SDV IVP ONE (10:36)
[2016-10-17 10:42] VITALS: BP 138/85; PULSE 100
== END 2016-10-17 11:07 | disposition home or self-care (01) ==
LOC: EDUNIT#
DX: R07.2 Precordial pain (principal); I10 Essential (primary) hypertension; J44.9 Chronic obstructive pulmonary disease, unspecified; F17.200 Nicotine dependence, unspecified, uncomplicated; E86.9 Volume depletion, unspecified
CPT/HCPCS: 96374; J1885; J2405

== ENCOUNTER 2016-10-18 08:19 | Inpatient (IN) | payer MEDICAID ==
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
[2016-10-18] MEDS ORDERED: IPRATROPIUM/ALBUTEROL 3 ML DEYVIAL ONE (08:31)
[2016-10-18] MEDS ORDERED: IPRATROPIUM/ALBUTEROL 3 ML DEYVIAL IH ONE (08:32)
[2016-10-18] MEDS ORDERED: ALBUTEROL 3 ML DEYVIAL IH ONE (08:34)
[2016-10-18] MEDS ORDERED: predniSONE 20 MG TAB PO ONE (08:34)
--- NOTE | 2016-10-18 08:37 | CPEKG ---
Heart Rate: 84 RR Interval: 714 P-R Interval: 148 QRSD Interval: 82 QT Interval: 396 QTC Interval: 469 P [place]: 28 QRS [place]: 51 T Wave [place]: 70 EKG Severity - NORMAL ECG - EKG Impression: SINUS RHYTHM Electronically Signed By: Ashley Catherine 18-Oct-2016 15:47:57
[2016-10-18 09:50] LABS: % IMMATURE GRANULYOCYTES 0.2 % (0.0-1.1); ABSOLUTE IMMATURE GRANULOCYTES 0.01 10^3/uL (0.00-0.10); ADD DIFF? NO; ADD MORPH? NO; ADD SCAN? NO; ATYPICAL LYMPHOCYTE FLAG 10 (0-99); FRAGMENT RBC FLAG 0 (0-99); HEMATOCRIT 36.1 % (40.0-51.0); HEMOGLOBIN 11.4 g/dL (13.7-17.5); LEFT SHIFT FLG 20 (0-99); LIPEMIA HEMOLYSIS FLAG 80 (0-99); MEAN CELL HEMOGLOBIN 26.6 pg (27.9-34.1); MEAN CELL HEMOGLOBIN CONCENTR. 31.6 g/dL (32.4-36.7); MEAN CELL VOLUME 84.3 fL (81.5-99.8); MEAN PLATELET VOLUME 9.8 fL (8.7-11.7); PLATELET CLUMPS FLAG 0 (0-99); PLATELET COUNT 215 10^3/uL (150-400); RED BLOOD CELL COUNT 4.28 10^6/uL (4.40-6.38); RED CELL DISTRIBUTION WIDTH 19.4 % (11.5-15.2)
[2016-10-18 09:58] LABS: ANION GAP 17 mEq/L (8-16); CALCIUM 7.9 mg/dL (8.5-10.4); CARBON DIOXIDE 22 mEq/l (22-31); CHLORIDE 104 mEq/L (97-110); CREATININE 0.5 mg/dL (0.7-1.3); GLOMERULAR FILTRATION RATE > 60; GLUCOSE 86 mg/dL (70-100); POTASSIUM 3.4 mEq/L (3.5-5.2); SODIUM 143 mEq/L (134-144)
[2016-10-18 10:09] LABS: TROPONIN I < 0.012 ng/mL (0.000-0.034)
[2016-10-18] MEDS ORDERED: IOPAMIDOL (ISOVUE 370) 100 ML BTL IV ONE (11:11)
[2016-10-18] MEDS ORDERED: ALTEPLASE 2 MG VIAL IVP PRN (12:52)
[2016-10-18] MEDS ORDERED: HYDROmorphONE/DILAUDID 1 MG/ML INJ IVP ONE (13:17)
[2016-10-18] MEDS ORDERED: KETOROLAC 15 MG/1 ML SDV IVP ONE (13:18)
[2016-10-18] MEDS ORDERED: LORazepam 2 MG/ML INJ IVP ONE (14:59)
[2016-10-18] MEDS ORDERED: ONDANSETRON DISINTEGRATING 4 MG TAB PO PRN (15:00)
[2016-10-18] MEDS ORDERED: NS 500 ML IV ONE (15:00)
[2016-10-18] MEDS ORDERED: ALBUTEROL 3 ML DEYVIAL IH PRN (15:00)
[2016-10-18] MEDS ORDERED: ONDANSETRON 4 MG/2 ML VIAL IVP PRN (15:00)
[2016-10-18] MEDS ORDERED: POTASSIUM CL 20 MEQ TAB PO ONE (15:03)
[2016-10-18] MEDS: oxyCODONE IR 5 MG TAB PO PRN ×3 (15:25→23:54)
[2016-10-18] MEDS: LIDOCAINE 5% 1 EA PATCH TD SCH (15:27)
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
[2016-10-18] MEDS: LORazepam 2 MG/ML INJ IVP PRN ×2 (16:59→21:32)
[2016-10-18] MEDS: chlordiazePOXIDE 25 MG CAP PO PRN (16:59)
[2016-10-18] MEDS: IPRATROPIUM/ALBUTEROL 3 ML DEYVIAL IH SCH ×2 (17:10→22:22)
[2016-10-18] MEDS: ACETAMINOPHEN 325 MG TAB PO PRN (19:35)
[2016-10-18] MEDS: HYDROmorphONE/DILAUDID 1 MG/ML INJ IVP PRN (19:36)
[2016-10-18] MEDS: PATCH REMOVAL 1 EA PATCH TD SCH (21:35)
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
[2016-10-18] MEDS: FLUTICASONE/SALMETER 250/50MCG DISKUS IH SCH (22:23)
[2016-10-19] MEDS: ACETAMINOPHEN 325 MG TAB PO PRN ×2 (01:53→22:53)
[2016-10-19] MEDS: LORazepam 2 MG/ML INJ IVP PRN ×8 (01:55→22:54)
[2016-10-19 02:13] LABS: % IMMATURE GRANULYOCYTES 0.2 % (0.0-1.1); ABSOLUTE IMMATURE GRANULOCYTES 0.01 10^3/uL (0.00-0.10); ADD DIFF? NO; ADD MORPH? NO; ADD SCAN? NO; ATYPICAL LYMPHOCYTE FLAG 0 (0-99); FRAGMENT RBC FLAG 0 (0-99); HEMATOCRIT 30.9 % (40.0-51.0); HEMOGLOBIN 9.8 g/dL (13.7-17.5); LEFT SHIFT FLG 10 (0-99); LIPEMIA HEMOLYSIS FLAG 80 (0-99); MEAN CELL HEMOGLOBIN CONCENTR. 31.7 g/dL (32.4-36.7); MEAN CELL VOLUME 85.1 fL (81.5-99.8); MEAN PLATELET VOLUME 10.3 fL (8.7-11.7); PLATELET CLUMPS FLAG 0 (0-99); PLATELET COUNT 175 10^3/uL (150-400); RED BLOOD CELL COUNT 3.63 10^6/uL (4.40-6.38); RED CELL DISTRIBUTION WIDTH 19.9 % (11.5-15.2)
[2016-10-19 02:17] LABS: INR 1.13 (0.83-1.16); PROTIME(PATIENT) 14.4 SEC (12.0-15.0)
[2016-10-19 02:29] LABS: ALANINE AMINOTRANSFERASE 76 IU/L (21-72); ALBUMIN 3.2 g/dL (3.5-5.0); ALKALINE PHOSPHATASE 444 IU/L (38-126); ANION GAP 8 mEq/L (8-16); ASPARTATE AMINOTRANSFERASE 197 IU/L (17-59); BILIRUBIN,TOTAL 1.7 mg/dL (0.1-1.4); CARBON DIOXIDE 27 mEq/l (22-31); CHLORIDE 100 mEq/L (97-110); CREATININE 0.6 mg/dL (0.7-1.3); GLOMERULAR FILTRATION RATE > 60; GLUCOSE 90 mg/dL (70-100); MAGNESIUM 1.6 mg/dL (1.6-2.3); SODIUM 135 mEq/L (134-144); TOTAL PROTEIN 5.7 g/dL (6.3-8.2)
[2016-10-19] MEDS: oxyCODONE IR 5 MG TAB PO PRN ×5 (04:28→22:53)
[2016-10-19] MEDS: IPRATROPIUM/ALBUTEROL 3 ML DEYVIAL IH SCH ×4 (05:37→21:51)
[2016-10-19] MEDS: chlordiazePOXIDE 25 MG CAP PO PRN (07:55)
[2016-10-19] MEDS: HYDROmorphONE/DILAUDID 1 MG/ML INJ IVP PRN ×2 (07:55→21:25)
[2016-10-19] MEDS: LISINOPRIL/HCTZ 20/12.5MG 1 EA TAB PO SCH (09:15)
[2016-10-19] MEDS: LIDOCAINE 5% 1 EA PATCH TD SCH (09:15)
[2016-10-19] MEDS: predniSONE 20 MG TAB PO SCH (09:15)
[2016-10-19] MEDS: ENOXAPARIN 40 MG/0.4 ML SYR SC SCH (09:17)
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
[2016-10-19 10:12] LABS: CREATINE KINASE-MB FRACTION 1.84 ng/mL (0.00-3.19); TROPONIN I < 0.012 ng/mL (0.000-0.034)
--- NOTE | 2016-10-19 10:15 | CPEKG ---
Heart Rate: 90 RR Interval: 667 P-R Interval: 140 QRSD Interval: 76 QT Interval: 356 QTC Interval: 436 P [place]: 36 QRS [place]: 43 T Wave [place]: 63 EKG Severity - NORMAL ECG - EKG Impression: SINUS RHYTHM Electronically Signed By: Irina Silverio 19-Oct-2016 21:15:12
[2016-10-19] MEDS: FLUTICASONE/SALMETER 250/50MCG DISKUS IH SCH ×2 (10:47→21:52)
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
[2016-10-19] MEDS: chlordiazePOXIDE 25 MG CAP PO SCH ×2 (14:50→21:24)
[2016-10-19] MEDS: PATCH REMOVAL 1 EA PATCH TD SCH (22:54)
[2016-10-20] MEDS: oxyCODONE IR 5 MG TAB PO PRN ×7 (01:27→21:43)
[2016-10-20] MEDS: LORazepam 2 MG/ML INJ IVP PRN ×8 (01:27→22:32)
[2016-10-20] MEDS: HYDROmorphONE/DILAUDID 1 MG/ML INJ IVP PRN (03:29)
[2016-10-20 05:07] LABS: % IMMATURE GRANULYOCYTES 0.2 % (0.0-1.1); ABSOLUTE IMMATURE GRANULOCYTES 0.01 10^3/uL (0.00-0.10); ADD DIFF? NO; ADD MORPH? NO; ADD SCAN? NO; ATYPICAL LYMPHOCYTE FLAG 20 (0-99); FRAGMENT RBC FLAG 0 (0-99); HEMATOCRIT 29.9 % (40.0-51.0); HEMOGLOBIN 9.3 g/dL (13.7-17.5); LEFT SHIFT FLG 10 (0-99); LIPEMIA HEMOLYSIS FLAG 80 (0-99); MEAN CELL HEMOGLOBIN 26.7 pg (27.9-34.1); MEAN CELL HEMOGLOBIN CONCENTR. 31.1 g/dL (32.4-36.7); MEAN CELL VOLUME 85.9 fL (81.5-99.8); MEAN PLATELET VOLUME 10.6 fL (8.7-11.7); PLATELET CLUMPS FLAG 0 (0-99); PLATELET COUNT 162 10^3/uL (150-400); RED BLOOD CELL COUNT 3.48 10^6/uL (4.40-6.38)
[2016-10-20 05:24] LABS: ALANINE AMINOTRANSFERASE 67 IU/L (21-72); ALBUMIN 2.9 g/dL (3.5-5.0); ALKALINE PHOSPHATASE 337 IU/L (38-126); ANION GAP 5 mEq/L (8-16); ASPARTATE AMINOTRANSFERASE 50 IU/L (17-59); BILIRUBIN,TOTAL 0.6 mg/dL (0.1-1.4); CALCIUM 8.4 mg/dL (8.5-10.4); CARBON DIOXIDE 29 mEq/l (22-31); CHLORIDE 97 mEq/L (97-110); CREATININE 0.7 mg/dL (0.7-1.3); GLOMERULAR FILTRATION RATE > 60; GLUCOSE 104 mg/dL (70-100); MAGNESIUM 1.8 mg/dL (1.6-2.3); POTASSIUM 3.7 mEq/L (3.5-5.2); SODIUM 131 mEq/L (134-144); TOTAL PROTEIN 5.5 g/dL (6.3-8.2)
[2016-10-20] MEDS: IPRATROPIUM/ALBUTEROL 3 ML DEYVIAL IH SCH ×4 (06:26→20:41)
[2016-10-20] MEDS: ENOXAPARIN 40 MG/0.4 ML SYR SC SCH (08:00)
[2016-10-20] MEDS: predniSONE 20 MG TAB PO SCH (08:00)
[2016-10-20] MEDS: LISINOPRIL/HCTZ 20/12.5MG 1 EA TAB PO SCH (08:00)
[2016-10-20] MEDS: chlordiazePOXIDE 25 MG CAP PO SCH ×3 (08:01→21:43)
[2016-10-20] MEDS: LIDOCAINE 5% 1 EA PATCH TD SCH (08:10)
[2016-10-20] MEDS: FLUTICASONE/SALMETER 250/50MCG DISKUS IH SCH ×2 (10:02→20:42)
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
[2016-10-20] MEDS: PATCH REMOVAL 1 EA PATCH TD SCH (21:43)
[2016-10-20] MEDS: ACETAMINOPHEN 325 MG TAB PO PRN (21:46)
[2016-10-20] MEDS ORDERED: NICOTINE 21 MG/24 HR PATCH TD SCH (22:30)
[2016-10-21] MEDS: LORazepam 2 MG/ML INJ IVP PRN ×3 (01:09→08:31)
[2016-10-21] MEDS: oxyCODONE IR 5 MG TAB PO PRN ×3 (01:09→06:18)
[2016-10-21 03:37] LABS: % IMMATURE GRANULYOCYTES 0.2 % (0.0-1.1); ABSOLUTE IMMATURE GRANULOCYTES 0.01 10^3/uL (0.00-0.10); ADD DIFF? NO; ADD MORPH? YES; ADD SCAN? NO; ATYPICAL LYMPHOCYTE FLAG 10 (0-99); FRAGMENT RBC FLAG 0 (0-99); HEMATOCRIT 30.3 % (40.0-51.0); HEMOGLOBIN 9.4 g/dL (13.7-17.5); LEFT SHIFT FLG 0 (0-99); LIPEMIA HEMOLYSIS FLAG 80 (0-99); MEAN CELL HEMOGLOBIN 26.6 pg (27.9-34.1); MEAN CELL VOLUME 85.8 fL (81.5-99.8); MEAN PLATELET VOLUME 10.7 fL (8.7-11.7); PLATELET CLUMPS FLAG 0 (0-99); PLATELET COUNT 181 10^3/uL (150-400); RED BLOOD CELL COUNT 3.53 10^6/uL (4.40-6.38)
[2016-10-21 03:38] LABS: RED CELL DISTRIBUTION WIDTH 20.8 % (11.5-15.2)
[2016-10-21 04:03] LABS: HYPOCHROMIA 1+; MICROCYTES 2+; PLATELET ESTIMATE ADEQUATE (ADEQ)
[2016-10-21] MEDS: IPRATROPIUM/ALBUTEROL 3 ML DEYVIAL IH SCH ×2 (05:52→10:08)
[2016-10-21 08:16] VITALS: BP 127/78; TEMP 97.4
[2016-10-21] MEDS: predniSONE 20 MG TAB PO SCH (08:30)
[2016-10-21] MEDS: ENOXAPARIN 40 MG/0.4 ML SYR SC SCH (08:30)
[2016-10-21] MEDS: LISINOPRIL/HCTZ 20/12.5MG 1 EA TAB PO SCH (08:30)
[2016-10-21] MEDS: chlordiazePOXIDE 25 MG CAP PO SCH (08:30)
[2016-10-21] MEDS: LIDOCAINE 5% 1 EA PATCH TD SCH (08:31)
[2016-10-21] MEDS ORDERED: THIAMINE HCL 100 MG TAB PO SCH (09:00)
[2016-10-21] MEDS: FLUTICASONE/SALMETER 250/50MCG DISKUS IH SCH (10:07)
[2016-10-21 10:10] VITALS: PULSE 94; RESP 16; O2SAT 94
[2016-10-21] MEDS ORDERED: VODKA 50 ML BOTTLE PO ONE (10:29)
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
--- NOTE | 2016-10-21 10:36 | SOAPPROG ---
SOAP Progress Note Assessment/Plan: Assessment: VITAL SIGNS STABLE / BREATH SOUNDS EQUAL / ABDOMEN SOFT NONTENDER THE PATIENT IS READY FOR HOME WITH FAMILY IN [place] / SAYS HE WANTS TO BE SOBER HE HAS A LUNG NODULE WHICH SHOULD BE FOLLOWED UP IN 3 MONTHS / PATIENT INFORMED Plan: HOME TODAY/ FOLLOW-UP IN THE OFFICE FOR RIB FRACTURES AND LUNG NODULE 10/21/16 10:35 Objective: Vital Signs Temp Pulse Resp BP Pulse Ox 36.3 C 94 16 127/78 H 94 10/21/16 08:00 10/21/16 10:08 10/21/16 10:08 10/21/16 08:30 10/21/16 10:08 Laboratory Results 10/21/16 03:30 10/20/16 05:00 10/20/16 10/21/16 10/22/16 05:59 05:59 05:59 Intake Total 1100 1000 Output Total 300 Balance 800 1000 PT 14.4 SEC (12.0-15.0) 10/19/16 02:00 INR 1.13 (0.83-1.16) 10/19/16 02:00 ICD10 Worksheet Patient Problems: Problems Problem Status Onset Chest pain Acute Multiple rib fractures Acute Abdominal pain Acute Alcohol intoxication Acute Alcohol withdrawal Acute Lactic acidosis Acute Multiple abrasions Acute Neck strain Acute Reversible airways disease Acute Seizure Acute Situational depression Acute Strain of mid-back Acute
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
--- NOTE | 2016-10-21 17:08 | ASMTCMCOM ---
CM Note CM Note Notes: Reviewed chart, spoke w/ [facility]. Pt anxious to discharge today. Per RN, NAT 23. RN called MD to discuss - vodka shot ordered to assist pt w/ withdrawals. Pt refused alcohol. Met w/ pt to discuss referral to [facility] for ETOH. Pt states he is "going directly to a rehab facility in [place] (upon leaving the hospital) for help." Asked pt where he is going, which facility, pt refused to share information. Offered to assist pt w/ referral or faxing of records to rehab, pt refused. Pt given list of ETOH resources Sat. Pt requesting local bus ticket; reports not having money to pay bus fare to rehab. Local bus pass provided. Pt refusing all other resources; CM avail for any further issues or concerns. Date Signed: 10/21/2016 12:52 PM Electronically Signed By:Huma Dominguez
== END 2016-10-21 11:28 | disposition home or self-care (01) | DRG 184 ==
LOC: EDUNIT# → F3N 14:41 → OBSVTOIN 15:00
PROVIDERS: ADMIT Student in an Organized Health Care Education/Training Program; ATTEND Student in an Organized Health Care Education/Training Program
PROC: 02HV33Z Insertion of Infusion Device into Superior Vena Cava, Percutaneous Approach (ICD-10-PCS; principal; 2016-10-18)
DX: S22.41XA Multiple fractures of ribs, right side, initial encounter for closed fracture (principal); S22.42XD Multiple fractures of ribs, left side, subsequent encounter for fracture with routine healing; Y04.0XXA Assault by unarmed brawl or fight, initial encounter; J44.1 Chronic obstructive pulmonary disease with (acute) exacerbation; E16.2 Hypoglycemia, unspecified; E87.6 Hypokalemia; F10.239 Alcohol dependence with withdrawal, unspecified; F17.210 Nicotine dependence, cigarettes, uncomplicated; R91.1 Solitary pulmonary nodule; I10 Essential (primary) hypertension; Z98.1 Arthrodesis status; Z98.84 Bariatric surgery status; Z59.0 Homelessness
CPT/HCPCS: 92523-GN; C1751; J1170; J1650; J1885; J2060; Q9967

== ENCOUNTER 2016-10-23 05:19 | Emergency (ER) | payer OTHER, MEDICAID ==
--- NOTE | 2016-10-23 05:27 | CPEKG ---
Heart Rate: 96 RR Interval: 625 P-R Interval: 148 QRSD Interval: 70 QT Interval: 352 QTC Interval: 445 P [place]: 72 QRS [place]: 47 T Wave [place]: 68 EKG Severity - NORMAL ECG - EKG Impression: SINUS RHYTHM Electronically Signed By: Zhen Mejía 23-Oct-2016 06:36:00
[2016-10-23] MEDS ORDERED: OXYCODONE/APAP 5/325 TAB PO ONE (05:31)
--- NOTE | 2016-10-23 05:31 | EDPHY ---
H & P Stated Complaint: CP Time Seen by Provider: 10/23/16 05:20 HPI/ROS: Chief Complaint: Chest pain HPI: 51-year-old male presenting with chest pain. Patient was just discharged in the hospital 2 days ago after admission for rib fractures, alcohol withdrawal and COPD exacerbation. Patient was discharged at that time with Percocet for his rib pain. Patient states that he made a mistake a telling someone in the [facility] they had them in the was stolen. He has not taken his pain medications since yesterday. Patient states that when he was getting up to walk safely developed tightness in his chest consistent with his pain when he presented here on his last visit. No shortness of breath. No nausea or vomiting. Patient called EMS and brought here for evaluation. ROS: 10 point Review of Systems is negative except as noted in the HPI. PMH: COPD, multiple rib fractures, chronic alcohol abuse, pulmonary nodules Social History: Positive smoking, heavy alcohol, no recreational drug use Family History: non-contributory Physical Exam: Gen: Awake, Alert, No Distress HEENT: Nose: no rhinorrhea Eyes: PERRLA, EOMI Mouth: Moist mucosa Neck: Supple, no JVD Chest: Bilateral chest wall tenderness reproducing his presenting complaint, lungs clear to auscultation Heart: S1, S2 normal, no murmur Abd: Soft, non-tender, no guarding Back: no CVA tenderness, no midline tenderness Ext: no edema, non-tender Skin: no rash Neuro: CN II-XII intact, Sensation grossly intact, Strength 5/5 in bilateral upper and lower extremities - Personal History Current Tetanus/Diphtheria Vaccine: Yes Current Tetanus Diphtheria and Acellular Pertussis (TDAP): Yes Tetanus Vaccine Date: 2015 - Medical/Surgical History Hx Asthma: No Hx Chronic Respiratory Disease: Yes Hx Diabetes: No Hx Cardiac Disease: No Hx Renal Disease: No Hx Cirrhosis: No Hx Alcoholism: Yes Hx HIV/AIDS: No Hx Splenectomy or Spleen Trauma: No Other PMH: PMH: htn, depression/anxiety,chronic back pain. ipjy-C4-S6-fusion, rolanda,left knee,gastric bypass, COPD, epilepsy, ETOH abuse - Social History Smoking Status: Heavy smoker Constitutional: Initial Vital Signs Temperature (C) 37.0 C 10/23/16 05:22 Heart Rate 95 10/23/16 05:22 Respiratory Rate 16 10/23/16 05:22 Blood Pressure 114/75 10/23/16 05:22 O2 Sat (%) 95 10/23/16 05:22 O2 Delivery Mode Nasal Cannula O2 (L/minute) 2 Allergies/Adverse Reactions: gabapentin Allergy (Verified 10/23/16 05:22) bee stings Allergy (Severe, Uncoded 10/23/16 05:22) Anaphylaxis Home Medications: Medication Instructions Recorded Lisinopril/Hctz 20/12.5MG 1 ea PO DAILY 08/01/16 [Zestoretic/Prinzide 20/12.5MG (*)] Albuterol [Ventolin Hfa Inhaler] 200 puffs IH Q4 PRN 10/18/16 Fluticasone/Salmeter 250/50Mcg 1 puffs IH BID 10/18/16 [Advair 250/50 (*)] Acetaminophen [Tylenol 325mg (*)] 650 mg PO Q4HRS PRN tab 10/21/16 Thiamine HCl [Vitamin B-1] 100 mg PO DAILY tab 10/21/16 oxyCODONE IR [Oxycodone Ir (*)] 5 mg PO Q6H PRN #14 tab 10/21/16 Medical Decision Making - Diagnostics EKG Interpretation: ECG time 5:25 a.m. sinus rhythm with a rate of 96, normal axis, normal in, no acute ST or T-wave changes. Impression: Normal ECG. ED Course/Re-evaluation: Troponin negative. Patient is improved after single Percocet emergency department. Will discharge with follow up with [facility]. No evidence of ACS. Patient has reproducible chest wall pain secondary to his rib fractures. Lungs are clear. He has excellent oxygen saturations. Vital signs are normal. - Data Points Laboratory Results: Laboratory Results 10/23/16 05:30 10/23/16 05:30 10/23/16 10/23/16 05:30 05:30 WBC 5.01 10^3/uL 10^3/uL (3.80-9.50) RBC 4.47 10^6/uL 10^6/uL (4.40-6.38) Hgb 12.1 g/dL L g/dL (13.7-17.5) Hct 39.9 % L % (40.0-51.0) MCV 89.3 fL fL (81.5-99.8) MCH 27.1 pg L pg (27.9-34.1) MCHC 30.3 g/dL L g/dL (32.4-36.7) RDW 20.8 % H % (11.5-15.2) Plt Count 199 10^3/uL 10^3/uL (150-400) MPV 11.5 fL fL (8.7-11.7) Neut % (Auto) 61.9 % % (39.3-74.2) Lymph % (Auto) 27.1 % % (15.0-45.0) [place] % (Auto) 7.8 % % (4.5-13.0) Eos % (Auto) 1.8 % % (0.6-7.6) Baso % (Auto) 1.0 % % (0.3-1.7) Nucleat RBC Rel Count 0.0 % % (0.0-0.2) Absolute Neuts (auto) 3.10 10^3/uL 10^3/uL (1.70-6.50) Absolute Lymphs (auto) 1.36 10^3/uL 10^3/uL (1.00-3.00) Absolute Monos (auto) 0.39 10^3/uL 10^3/uL (0.30-0.80) Absolute Eos (auto) 0.09 10^3/uL 10^3/uL (0.03-0.40) Absolute Basos (auto) 0.05 10^3/uL 10^3/uL (0.02-0.10) Absolute Nucleated RBC 0.00 10^3/uL 10^3/uL (0-0.01) Immature Gran % 0.4 % % (0.0-1.1) Immature Gran # 0.02 10^3/uL 10^3/uL (0.00-0.10) Platelet Estimate Pending Sodium 141 mEq/L mEq/L (134-144) Potassium 4.0 mEq/L mEq/L (3.5-5.2) Chloride 100 mEq/L mEq/L (97-110) Carbon Dioxide 24 mEq/l mEq/l (22-31) Anion Gap 17 mEq/L H mEq/L (8-16) BUN 17 mg/dL mg/dL (7-23) Creatinine 0.8 mg/dL mg/dL (0.7-1.3) Estimated GFR > 60 Glucose 67 mg/dL L mg/dL (70-100) Calcium 8.6 mg/dL mg/dL (8.5-10.4) Troponin I < 0.012 ng/mL ng/mL (0.000-0.034) Medications Given: Discontinued Medications Oxycodone/Acetaminophen (Percocet 5/325) 1 tab PO EDNOW ONE Stop: 10/23/16 05:32 Last Admin: 10/23/16 05:54 Dose: 1 tab Departure - Departure Disposition: Home, Routine, Self-Care Clinical Impression: Chest wall pain Condition: Good Instructions: Chest Wall Pain (ED) Additional Instructions: Follow up with the [facility] in 2-3 days for re-evaluation. Return emergency depart for increasing shortness of breath, seizures, nausea, vomiting, or any other concerns. Referrals: [facility],. [Clinic] - As per Instructions
[2016-10-23 05:32] VITALS: PULSE 95; RESP 16; TEMP 98.6
[2016-10-23 05:54] LABS: ANION GAP 17 mEq/L (8-16); CALCIUM 8.6 mg/dL (8.5-10.4); CARBON DIOXIDE 24 mEq/l (22-31); CHLORIDE 100 mEq/L (97-110); CREATININE 0.8 mg/dL (0.7-1.3); GLOMERULAR FILTRATION RATE > 60; GLUCOSE 67 mg/dL (70-100); SODIUM 141 mEq/L (134-144)
[2016-10-23 05:56] VITALS: BP 118/79; O2SAT 98
[2016-10-23 06:02] LABS: % IMMATURE GRANULYOCYTES 0.4 % (0.0-1.1); ABSOLUTE IMMATURE GRANULOCYTES 0.02 10^3/uL (0.00-0.10); ADD DIFF? NO; ADD MORPH? YES; ADD SCAN? NO; ATYPICAL LYMPHOCYTE FLAG 10 (0-99); FRAGMENT RBC FLAG 20 (0-99); HEMATOCRIT 39.9 % (40.0-51.0); HEMOGLOBIN 12.1 g/dL (13.7-17.5); LEFT SHIFT FLG 0 (0-99); LIPEMIA HEMOLYSIS FLAG 80 (0-99); MEAN CELL HEMOGLOBIN 27.1 pg (27.9-34.1); MEAN CELL HEMOGLOBIN CONCENTR. 30.3 g/dL (32.4-36.7); MEAN CELL VOLUME 89.3 fL (81.5-99.8); MEAN PLATELET VOLUME 11.5 fL (8.7-11.7); PLATELET CLUMPS FLAG 0 (0-99); PLATELET COUNT 199 10^3/uL (150-400); RED BLOOD CELL COUNT 4.47 10^6/uL (4.40-6.38)
[2016-10-23 06:04] LABS: RED CELL DISTRIBUTION WIDTH 20.8 % (11.5-15.2)
[2016-10-23 06:06] LABS: TROPONIN I < 0.012 ng/mL (0.000-0.034)
[2016-10-23 06:48] LABS: HYPOCHROMIA 1+; PLATELET ESTIMATE ADEQUATE (ADEQ); POLYCHROMASIA 1+; ROULEAUX PRESENT
== END 2016-10-23 06:22 | disposition home or self-care (01) ==
LOC: EDUNIT#
DX: R07.89 Other chest pain (principal); J44.9 Chronic obstructive pulmonary disease, unspecified; I10 Essential (primary) hypertension; F17.200 Nicotine dependence, unspecified, uncomplicated

== ENCOUNTER 2016-10-24 12:12 | Emergency (ER) | payer OTHER, MEDICAID ==
--- NOTE | 2016-10-24 12:20 | EDPHY ---
HPI/HX/ROS/PE/MDM - Data Points Imaging: Discussed imaging studies w/ call center assistant Radiologist, I viewed and interpreted images myself Narrative: CHIEF COMPLAINT: Alcohol and abdominal pain HPI: The patient is a 51 y/o male arriving via EMS who presents with tachycardia. He was seen in this ED yesterday for chest pain. [place] [employer] reports an empty 1.75L bottle of alcohol was found next to the patient. Per EMS, the patient was initially at a heart rate in the 80's, but when he was walking to the ambulance he became lethargic and tachycardic. EMS also reports he had difficulty urinating. The patient is unresponsive at this time. REVIEW OF SYSTEMS: Aside from elements discussed in the HPI, a comprehensive 10-point review of systems was reviewed and is negative. PMH: COPD Alcoholism Pulmonary nodules Gastric bypass SOCIAL HISTORY: Smoker Alcoholic No recreational drug use Prior medical records reviewed including ED visit on 10/23/[address] Mejía. PHYSICAL EXAM: General:Patient is alert, in no acute distress. ENT:Eyes are normal to inspection. ENT inspection normal. Neck: Normal inspection. Full range of motion. Respiratory:No respiratory distress. Breath sounds normal bilaterally. Cardiovascular: Tachycardia. Strong peripheral pulses. Normal cap refill. Abdomen:The abdomen is nontender to palpation. There are no peritoneal signs. There are normal bowel sounds. Back: Normal to inspection. No tenderness to palpation. Skin: Normal color. No rash. Warm and dry. Extremities: Bilateral symmetric pedal edema, Otherwise normal appearance. Full range of motion. Neuro: Oriented x3. Normal motor function. Normal sensory function. Portions of this note were transcribed by an ED scribe. I personally performed the history, physical exam, and medical decision making; and confirm the accuracy of the information in the transcribed note. (Julio Adair) ED Course: The patient is a 51 y/o male arriving via EMS who presents with tachycardia secondary to his alcoholism. 1220: Rate of 154 1223: 10mg Diltiazem 1226: Rate of 155 1227: 6mg Adenosine 1228: Rate of 74. He is now responsive. 1229: Rate of 150 1231: 10mg Diltiazem 1233: Rate of 136 1250: Converted to normal sinus rhythm. (Julio Adair) MDM: Care assumed from Dr. Adair at 2:45 p.m. plan to discharge to detox on [facility] hold when clinically sober. 1612: Alert, clear speech, ambulatory without ataxia or assistance. No medical complaints. Stable for discharge to detox. (Jesus Paul) This patient presents primarily with severe alcohol intoxication. Upon arrival he was noted to be in rapid atrial fibrillation. This was treated as noted above, and eventually converted to NSR. He was signed out to Dr. Paul with plan to re-evaluate and likely discharge to [facility] (Julio Adair) - Data Points Laboratory Results: Laboratory Results 10/24/16 14:25 10/24/16 Unknown 10/24/16 10/24/16 10/24/16 Unknown Unknown 14:25 WBC 5.28 10^3/uL 10^3/uL (3.80-9.50) RBC 3.91 10^6/uL L 10^6/uL (4.40-6.38) Hgb 10.5 g/dL L g/dL (13.7-17.5) Hct 33.2 % L % (40.0-51.0) MCV 84.9 fL fL (81.5-99.8) MCH 26.9 pg L pg (27.9-34.1) MCHC 31.6 g/dL L g/dL (32.4-36.7) RDW 20.2 % H % (11.5-15.2) Plt Count 232 10^3/uL 10^3/uL (150-400) MPV 9.8 fL fL (8.7-11.7) Neut % (Auto) 61.9 % % (39.3-74.2) Lymph % (Auto) 26.1 % % (15.0-45.0) [place] % (Auto) 9.1 % % (4.5-13.0) Eos % (Auto) 1.7 % % (0.6-7.6) Baso % (Auto) 0.8 % % (0.3-1.7) Nucleat RBC Rel Count 0.0 % % (0.0-0.2) Absolute Neuts (auto) 3.27 10^3/uL 10^3/uL (1.70-6.50) Absolute Lymphs (auto) 1.38 10^3/uL 10^3/uL (1.00-3.00) Absolute Monos (auto) 0.48 10^3/uL 10^3/uL (0.30-0.80) Absolute Eos (auto) 0.09 10^3/uL 10^3/uL (0.03-0.40) Absolute Basos (auto) 0.04 10^3/uL 10^3/uL (0.02-0.10) Absolute Nucleated RBC 0.00 10^3/uL 10^3/uL (0-0.01) Immature Gran % 0.4 % % (0.0-1.1) Immature Gran # 0.02 10^3/uL 10^3/uL (0.00-0.10) Platelet Estimate ADEQUATE (ADEQ) Hypochromasia 2+ H Microcytic Cells 2+ H Sodium 139 mEq/L mEq/L (134-144) Potassium 3.6 mEq/L mEq/L (3.5-5.2) Chloride 102 mEq/L mEq/L (97-110) Carbon Dioxide 20 mEq/l L mEq/l (22-31) Anion Gap 17 mEq/L H mEq/L (8-16) BUN 19 mg/dL mg/dL (7-23) Creatinine 0.8 mg/dL mg/dL (0.7-1.3) Estimated GFR > 60 Glucose 88 mg/dL mg/dL (70-100) Calcium 8.3 mg/dL L mg/dL (8.5-10.4) Total Bilirubin 0.8 mg/dL mg/dL (0.1-1.4) Conjugated Bilirubin 0.6 mg/dL H mg/dL (0.0-0.5) Unconjugated Bilirubin 0.2 mg/dL mg/dL (0.0-1.1) AST 248 IU/L H IU/L (17-59) ALT 99 IU/L H IU/L (21-72) Alkaline Phosphatase 400 IU/L H IU/L (38-126) Total Protein 6.4 g/dL g/dL (6.3-8.2) Albumin 3.8 g/dL g/dL (3.5-5.0) Lipase 340 IU/L H IU/L (23-300) Ethyl Alcohol 293 mg/dL H mg/dL (0-10) Medications Given: Discontinued Medications Adenosine (Adenosine) 6 mg IVP EDNOW ONE Stop: 10/24/16 12:40 Last Admin: 10/24/16 12:43 Dose: 6 mg Diltiazem HCl (Cardizem 25 Mg/5 Ml Vial) 10 mg IVP EDNOW ONE Stop: 10/24/16 12:37 Last Admin: 10/24/16 12:43 Dose: 10 mg Diltiazem HCl (Cardizem 25 Mg/5 Ml Vial) 20 mg IVP EDNOW ONE Stop: 10/24/16 12:40 Last Admin: 10/24/16 12:43 Dose: 20 mg Diltiazem HCl 125 mg/ Dextrose 125 mls @ 0 mls/hr IV EDNOW ONE; As Directed PRN Reason: Protocol Stop: 10/24/16 12:37 Last Admin: 10/24/16 13:01 Dose: Not Given Sodium Chloride (Ns) 1,000 mls @ 0 mls/hr IV ONCE ONE; Wide Open PRN Reason: Protocol Stop: 10/24/16 12:40 Last Admin: 10/24/16 12:43 Dose: 1,000 mls General Time Seen by Provider: 10/24/16 12:16 Initial Vital Signs: Initial Vital Signs Temperature (C) 36.9 C 10/24/16 12:33 Heart Rate 158 H 10/24/16 12:33 Respiratory Rate 18 10/24/16 12:33 Blood Pressure 88/60 L 10/24/16 12:33 O2 Sat (%) 88 L 10/24/16 12:33 O2 Delivery Mode Room Air O2 (L/minute) 3 Allergies/Adverse Reactions: gabapentin Allergy (Verified 10/23/16 05:22) bee stings Allergy (Severe, Uncoded 10/23/16 05:22) Anaphylaxis Home Medications: Medication Instructions Recorded Lisinopril/Hctz 20/12.5MG 1 ea PO DAILY 08/01/16 [Zestoretic/Prinzide 20/12.5MG (*)] Albuterol [Ventolin Hfa Inhaler] 200 puffs IH Q4 PRN 10/18/16 Fluticasone/Salmeter 250/50Mcg 1 puffs IH BID 10/18/16 [Advair 250/50 (*)] Acetaminophen [Tylenol 325mg (*)] 650 mg PO Q4HRS PRN tab 10/21/16 Thiamine HCl [Vitamin B-1] 100 mg PO DAILY tab 10/21/16 oxyCODONE IR [Oxycodone Ir (*)] 5 mg PO Q6H PRN #14 tab 10/21/16 Departure - Departure Disposition: Home, Routine, Self-Care Clinical Impression: Alcohol intoxication, Atrial fibrillation, Alcohol dependence Condition: Good Instructions: Alcohol Intoxication (ED) Referrals: [facility],. [Clinic] - As per Instructions Report Scribed for: Julio Adair Report Scribed by: Zara Parsons Date of Report: 10/24/16 Time of Report: 13:29
--- NOTE | 2016-10-24 12:21 | CPEKG ---
Heart Rate: 154 RR Interval: 390 QRSD Interval: 78 QT Interval: 312 QTC Interval: 500 P [place]: 0 QRS [place]: 15 T Wave [place]: 43 EKG Severity - BORDERLINE ECG - EKG Impression: SINUS TACHYCARDIA EKG Impression: BORDERLINE PROLONGED QT INTERVAL Electronically Signed By: Jesus Paul 24-Oct-2016 16:14:40
[2016-10-24] MEDS ORDERED: DILTIAZEM 25 MG/5 ML VIAL IVP ONE ×4 (12:22→12:39)
[2016-10-24] MEDS ORDERED: ADENOSINE 6 MG/2 ML VIAL ONE (12:26)
[2016-10-24] MEDS ORDERED: DILTIAZEM 125 MG in D5W 125 ML IV ONE (12:36)
[2016-10-24 12:38] VITALS: TEMP 98.4
[2016-10-24] MEDS ORDERED: NS 1,000 ML IV ONE (12:39)
[2016-10-24] MEDS ORDERED: ADENOSINE 6 MG/2 ML VIAL IVP ONE (12:39)
--- NOTE | 2016-10-24 12:48 | CPEKG ---
Heart Rate: 145 RR Interval: 414 QRSD Interval: 70 QT Interval: 312 QTC Interval: 485 QRS [place]: 48 T Wave [place]: 51 EKG Severity - ABNORMAL ECG - EKG Impression: ATRIAL FIBRILLATION, V-RATE 100-176 EKG Impression: LOW VOLTAGE IN FRONTAL LEADS EKG Impression: BORDERLINE PROLONGED QT INTERVAL Electronically Signed By: Jesus Paul 24-Oct-2016 16:14:34
--- NOTE | 2016-10-24 12:56 | CPEKG ---
Heart Rate: 81 RR Interval: 741 P-R Interval: 128 QRSD Interval: 90 QT Interval: 372 QTC Interval: 432 P [place]: 11 QRS [place]: 47 T Wave [place]: 64 EKG Severity - BORDERLINE ECG - EKG Impression: SINUS RHYTHM EKG Impression: LOW VOLTAGE THROUGHOUT Electronically Signed By: Jesus Paul 24-Oct-2016 16:14:29
[2016-10-24 13:41] LABS: ALANINE AMINOTRANSFERASE 99 IU/L (21-72); ALBUMIN 3.8 g/dL (3.5-5.0); ALKALINE PHOSPHATASE 400 IU/L (38-126); ANION GAP 17 mEq/L (8-16); ASPARTATE AMINOTRANSFERASE 248 IU/L (17-59); BILIRUBIN,TOTAL 0.8 mg/dL (0.1-1.4); BILIRUBIN-CONJUGATED 0.6 mg/dL (0.0-0.5); BILIRUBIN-UNCONJUGATED 0.2 mg/dL (0.0-1.1); CALCIUM 8.3 mg/dL (8.5-10.4); CARBON DIOXIDE 20 mEq/l (22-31); CHLORIDE 102 mEq/L (97-110); CREATININE 0.8 mg/dL (0.7-1.3); GLOMERULAR FILTRATION RATE > 60; GLUCOSE 88 mg/dL (70-100); POTASSIUM 3.6 mEq/L (3.5-5.2); SODIUM 139 mEq/L (134-144); TOTAL PROTEIN 6.4 g/dL (6.3-8.2)
[2016-10-24 14:31] LABS: ETHANOL SERUM 293 mg/dL (0-10)
[2016-10-24 14:35] LABS: % IMMATURE GRANULYOCYTES 0.4 % (0.0-1.1); ABSOLUTE IMMATURE GRANULOCYTES 0.02 10^3/uL (0.00-0.10); ADD DIFF? NO; ADD MORPH? YES; ADD SCAN? NO; ATYPICAL LYMPHOCYTE FLAG 20 (0-99); FRAGMENT RBC FLAG 20 (0-99); HEMATOCRIT 33.2 % (40.0-51.0); HEMOGLOBIN 10.5 g/dL (13.7-17.5); LEFT SHIFT FLG 0 (0-99); LIPEMIA HEMOLYSIS FLAG 80 (0-99); MEAN CELL HEMOGLOBIN 26.9 pg (27.9-34.1); MEAN CELL HEMOGLOBIN CONCENTR. 31.6 g/dL (32.4-36.7); MEAN CELL VOLUME 84.9 fL (81.5-99.8); MEAN PLATELET VOLUME 9.8 fL (8.7-11.7); PLATELET CLUMPS FLAG 0 (0-99); PLATELET COUNT 232 10^3/uL (150-400); RED BLOOD CELL COUNT 3.91 10^6/uL (4.40-6.38)
[2016-10-24 14:39] LABS: RED CELL DISTRIBUTION WIDTH 20.2 % (11.5-15.2)
--- NOTE | 2016-10-24 15:03 | ASMTCASEMG ---
Living Arrangements What is your living Answers: Alone arrangement? Who do you live with? Type Of Residence What kind of residence do Answers: Homeless you live in? Services Used Prior to Admission Community Services Used Answers: [facility] Prior to Admission Case Management Evaluation Psychosocial Needs: Answers: Active Substance Abuse Behavioral Health Issue Discharge Plan Comments Coordination Status Comments Notes: Pt presented in ED by EMS with complaints of abdominal issues and ETOH intoxication. Upon examination it was determine that he was tachycardic, which is a new symptom for this pt. Pt. has extensive HX of ED visits, six in October to date. Pt has been noncompliant with follow up treatment/care. Pt has plan of care which indicates that if he presented in the FED for alcohol related issues he will be placed on Emergency Commitment ETOH hold with the possibility of court order for treatment. (Please see ED CM notes from 09/19/16 and 10/07/16). Pt on [facility] ([facility]) hold. Outreach made to [facility] ([phone]) spoke with Will who is aware of the situation and plan. ED CM spoke with Ruthie at [facility] who confirmed that the pt.s last visit was on 08/23 for a MH evaluation. CM also spoke to Caprice at [facility] to notify of the current situation and plan. [facility] and are aware of current circumstances and plan. Date Signed: 10/24/2016 03:02 PM Electronically Signed By:Israel Ivory LCSW
[2016-10-24 15:17] LABS: HYPOCHROMIA 2+; MICROCYTES 2+
[2016-10-24 15:18] LABS: PLATELET ESTIMATE ADEQUATE (ADEQ)
[2016-10-24 16:28] VITALS: BP 108/71; PULSE 86; RESP 18; O2SAT 95
== END 2016-10-24 17:42 | disposition home or self-care (01) ==
LOC: EDUNIT#
DX: I48.91 Unspecified atrial fibrillation (principal); F10.229 Alcohol dependence with intoxication, unspecified; E86.9 Volume depletion, unspecified; J44.9 Chronic obstructive pulmonary disease, unspecified
CPT/HCPCS: 93005; 96374; 96375; 99284; J0153; G0480

== ENCOUNTER 2016-10-26 03:42 | Emergency (ER) | payer OTHER, MEDICAID ==
--- NOTE | 2016-10-26 03:56 | CPEKG ---
Heart Rate: 87 RR Interval: 690 P-R Interval: 148 QRSD Interval: 72 QT Interval: 376 QTC Interval: 453 P [place]: 40 QRS [place]: 58 T Wave [place]: 64 EKG Severity - NORMAL ECG - EKG Impression: SINUS RHYTHM Electronically Signed By: Lor Patricia 26-Oct-2016 06:30:12
[2016-10-26 04:02] VITALS: RESP 18
--- NOTE | 2016-10-26 04:19 | EDPHY ---
H & P Stated Complaint: cp l shldr pain multiple visits Time Seen by Provider: 10/26/16 03:52 HPI/ROS: HPI The patient presents brought in by ambulance for left shoulder pain which he has had intermittently for last several months. The pain is achy, worse when he raises his arm above his head. He is not sure what caused his shoulder to her tonight. He denies any trauma. He initially complained of chest pain to paramedics, however denies this to me. He has had very frequent visits nearly daily recently for similar complaints. REVIEW OF SYSTEMS Constitutional: No fever, no chills. Eyes: No discharge. ENT: No sore throat. Cardiovascular: No chest pain, no palpitations. Respiratory: No cough, no shortness of breath. Gastrointestinal: No abdominal pain, no vomiting. Genitourinary: No hematuria. Musculoskeletal: No back pain. Skin: No rashes. Neurological: No headache. PMHx: COPD, history of rib fracture Soc Hx: Was recently at [facility] PHYSICAL General Appearance: Alert, no distress Eyes: Pupils equal and round no pallor or injection ENT, Mouth: Mucous membranes moist Respiratory: There are no retractions, lungs are clear to auscultation Cardiovascular: Regular rate and rhythm Gastrointestinal: Abdomen is soft and non-tender, no masses, bowel sounds normal Neurological: A&O, moves all extremities Skin: Warm and dry, multiple sutures overlying zygomatic arch of left eye Musculoskeletal: Neck is supple non tender Extremities: Left shoulder is nontender, no obvious effusion, unable to extend beyond 90 secondary to pain, no overlying skin changes Psychiatric: Patient is oriented X 3, there is no agitation Source: Patient, EMS - Personal History Current Tetanus/Diphtheria Vaccine: Yes Current Tetanus Diphtheria and Acellular Pertussis (TDAP): Yes Tetanus Vaccine Date: 2015 - Medical/Surgical History Hx Asthma: No Hx Chronic Respiratory Disease: Yes Hx Diabetes: No Hx Cardiac Disease: No Hx Renal Disease: No Hx Cirrhosis: No Hx Alcoholism: Yes Hx HIV/AIDS: No Hx Splenectomy or Spleen Trauma: No Other PMH: PMH: htn, depression/anxiety,chronic back pain. [id number]-[id number]-fusion, rolanda,left knee,gastric bypass, COPD, epilepsy, ETOH abuse - Social History Smoking Status: Heavy smoker Constitutional: Initial Vital Signs Temperature (C) 36.7 C 10/26/16 03:58 Heart Rate 96 10/26/16 03:58 Respiratory Rate 18 10/26/16 03:58 Blood Pressure 134/82 H 10/26/16 03:58 O2 Sat (%) 93 10/26/16 03:58 O2 Delivery Mode Room Air Allergies/Adverse Reactions: gabapentin Allergy (Verified 10/23/16 05:22) bee stings Allergy (Severe, Uncoded 10/23/16 05:22) Anaphylaxis Home Medications: Medication Instructions Recorded Lisinopril/Hctz 20/12.5MG 1 ea PO DAILY 08/01/16 [Zestoretic/Prinzide 20/12.5MG (*)] Albuterol [Ventolin Hfa Inhaler] 200 puffs IH Q4 PRN 10/18/16 Fluticasone/Salmeter 250/50Mcg 1 puffs IH BID 10/18/16 [Advair 250/50 (*)] Acetaminophen [Tylenol 325mg (*)] 650 mg PO Q4HRS PRN tab 10/21/16 Thiamine HCl [Vitamin B-1] 100 mg PO DAILY tab 10/21/16 oxyCODONE IR [Oxycodone Ir (*)] 5 mg PO Q6H PRN #14 tab 10/21/16 Medical Decision Making - Diagnostics EKG Interpretation: EKG: Complete interpretation has been separately recorded in the [facility] archive. Summary impression: Normal sinus rhythm Imaging Results: Shoulder x-ray two view shows no fracture, no dislocation, interpreted by me, radiology interpretation is pending. Differential Diagnosis: This is a 51-year-old man with COPD, alcohol abuse, rib fractures who presents with left shoulder pain which has been intermittent problem for him. Differential diagnosis includes shoulder strain, fracture, dislocation, rotator cuff injury, calcific tendinosis. In the emergency department, EKG and shoulder x-ray were performed and were unremarkable. He would like to go back to [facility] and we will arrange this for him. We have removed his sutures which have been in place for several weeks in his face. Departure - Departure Disposition: Home, Routine, Self-Care Clinical Impression: Left shoulder pain, Visit for suture removal, Alcohol dependence Condition: Good Instructions: Shoulder Sprain (ED) Referrals: [facility] [Outside] - As per Instructions
[2016-10-26 04:32] VITALS: BP 110/67; PULSE 95; TEMP 97.9; O2SAT 92
== END 2016-10-26 04:30 | disposition home or self-care (01) ==
LOC: EDUNIT#
DX: M25.512 Pain in left shoulder (principal); F10.20 Alcohol dependence, uncomplicated; J44.9 Chronic obstructive pulmonary disease, unspecified; I10 Essential (primary) hypertension; F17.200 Nicotine dependence, unspecified, uncomplicated; Z48.01 Encounter for change or removal of surgical wound dressing

== ENCOUNTER 2016-10-28 05:40 | Emergency (ER) | payer OTHER, MEDICAID ==
[2016-10-28] MEDS ORDERED: IBUPROFEN 200 MG TAB PO ONE (05:41)
[2016-10-28] MEDS ORDERED: IPRATROPIUM/ALBUTEROL 3 ML DEYVIAL IH ONE (05:42)
--- NOTE | 2016-10-28 05:43 | EDPHY ---
H & P HPI/ROS: HPI CHIEF COMPLAINT: Right anterior chest wall pain, cough, wheezing HISTORY OF PRESENT ILLNESS: This patient 51-year-old male well known to myself as well as the emergency room significant past medical history for COPD and alcoholism, homeless, smokes tobacco daily, presents emergency room by ambulance for right anterior chest wall pain. He denies any trauma but he states it hurts when you press on his chest. Additionally reports wheezing and shortness of breath. He denies any left-sided chest discomfort or pressure in his chest. Denies numbness or tingling. He does have COPD and continues to smoke he is not oxygen dependent. He presents emergency room by EMS with a slight wheeze and a bronchitic sounding cough. Additionally on exam when you touch his right chest he has pain. He is unsure if he fell but denies any recent injury. He is homeless and drinks a large amount of alcohol daily. It is possible he fell. Past Medical History: Hypertension, COPD, daily alcohol use, alcoholism Past Surgical History: Cholecystectomy, lumbar fusion Social History: Homeless, daily alcohol use, daily tobacco use Family History: Noncontributory ROS REVIEW OF SYSTEMS: A comprehensive 10 point review of systems is otherwise negative aside from elements mentioned in the history of present illness. Exam Constitutional appears nontoxic well, triage nursing summary reviewed, vital signs reviewed, awake/alert. Eyes normal conjunctivae and sclera, EOMI, PERRLA. HENT normal inspection, atraumatic, moist mucus membranes, no epistaxis, neck supple/ no meningismus, no raccoon eyes. Respiratory slight wheezing bilaterally, bronchitic sounding cough, no respiratory distress, Cardiovascular chest wall: Right-sided tender palpation reproducible on exam with no flail chest or crepitus, no ecchymosis, rate normal, regular rhythm, no murmur, no edema, distal pulses normal. Gastrointestinal soft, non-tender, no rebound, no guarding, normal bowel sounds, no distension, no pulsatile mass. Genitourinary no CVA tenderness. Musculoskeletal no midline vertebral tenderness, full range of motion, no calf swelling, no tenderness of extremities, no meningismus, good pulses, neurovascularly intact. Skin pink, warm, & dry, no rash, skin atraumatic. Neurologic awake, alert and oriented x 3, AAOx3, moves all 4 extremities equally, motor intact, sensory intact, CN II-XII intact, normal cerebellar, normal vision, normal speech. Psychiatric normal mood/affect. Heme/Lymph/Immune no lymphadenopathy. Differential Diagnosis: Includes but is not limited to in a particular order, COPD, asthma, bronchitis, pneumonia, rib fractures, chest wall contusion, rib injury Medical Decision Making: Plan for this patient two view chest x-ray, DuoNeb breathing treatment, ibuprofen for pain control. Re-evaluate. Re-evaluation: ED x-ray chest two view: Shows bilateral rib fractures. Some old some appear new specially in the right lower aspect. Bronchitis present. No pneumothorax. Image interpreted myself. 633AM: Re-evaluation this time patient is sleeping. Once I woke him and re- evaluated him he did have a breathing treatment feels much better. Re- examination of his lungs are much clear. No respiratory distress is resting comfortably. Ibuprofen helps with his pain. He does have reproducible anterior right chest wall pain consistent with his x-ray where rib fractures are present. No flail chest. No pneumothorax. Patient would like to be discharged around 6:50 a.m. he states shelters open at 70 would like to go there today. I explained should stop drinking alcohol refrain from smoking. Take anti-inflammatory pain medicine for his rib fractures albuterol. Source: Patient, EMS - Personal History Tetanus Vaccine Date: 2015 - Medical/Surgical History Hx Asthma: No Hx Chronic Respiratory Disease: Yes Hx Diabetes: No Hx Cardiac Disease: No Hx Renal Disease: No Hx Cirrhosis: No Hx Alcoholism: Yes Hx HIV/AIDS: No Hx Splenectomy or Spleen Trauma: No Other PMH: PMH: htn, depression/anxiety,chronic back pain. [id number]-fusion, rolanda,left knee,gastric bypass, COPD, epilepsy, ETOH abuse - Social History Smoking Status: Heavy smoker Constitutional: Initial Vital Signs Temperature (C) 36.3 C 10/28/16 05:40 Heart Rate 85 10/28/16 05:40 Respiratory Rate 20 10/28/16 05:40 Blood Pressure 128/96 H 10/28/16 05:40 O2 Sat (%) 95 10/28/16 05:40 O2 Delivery Mode Room Air Allergies/Adverse Reactions: gabapentin Allergy (Verified 10/23/16 05:22) bee stings Allergy (Severe, Uncoded 10/23/16 05:22) Anaphylaxis Home Medications: Medication Instructions Recorded Lisinopril/Hctz 20/12.5MG 1 ea PO DAILY 08/01/16 [Zestoretic/Prinzide 20/12.5MG (*)] Albuterol [Ventolin Hfa Inhaler] 200 puffs IH Q4 PRN 10/18/16 Fluticasone/Salmeter 250/50Mcg 1 puffs IH BID 10/18/16 [Advair 250/50 (*)] Acetaminophen [Tylenol 325mg (*)] 650 mg PO Q4HRS PRN tab 10/21/16 Thiamine HCl [Vitamin B-1] 100 mg PO DAILY tab 10/21/16 oxyCODONE IR [Oxycodone Ir (*)] 5 mg PO Q6H PRN #14 tab 10/21/16 Albuterol [Proventil Inhaler HFA 1 - 2 puffs IH Q4H #1 mdi 10/28/16 (*)] Medical Decision Making - Data Points Medications Given: Discontinued Medications Albuterol/Ipratropium (Duoneb) 3 ml IH EDNOW ONE Stop: 10/28/16 05:43 Last Admin: 10/28/16 06:14 Dose: 3 ml Ibuprofen (Motrin) 800 mg PO EDNOW ONE Stop: 10/28/16 05:42 Last Admin: 10/28/16 06:14 Dose: 800 mg Departure - Departure Disposition: Home, Routine, Self-Care Clinical Impression: Bronchitis Ribs, multiple fractures Qualifiers: Encounter type: initial encounter Fracture type: closed Laterality: bilateral Qualified Code(s): S22.43XA - Multiple fractures of ribs, bilateral, initial encounter for closed fracture Condition: Good Instructions: Rib Fracture (ED), Acute Bronchitis (ED) Additional Instructions: 1. Please stop smoking. 2. Return to the ER if you have worsening shortness of breath pain or questions or concerns. Referrals: Patient,NotPresent [Unknown] - As per Instructions Prescriptions: Albuterol [Proventil Inhaler HFA (*)] 1 - 2 puffs IH Q4H #1 mdi
[2016-10-28 05:54] VITALS: TEMP 97.3
[2016-10-28 07:06] VITALS: BP 118/77; PULSE 82; RESP 18; O2SAT 93
== END 2016-10-28 07:07 | disposition home or self-care (01) ==
LOC: EDUNIT#
DX: S22.43XA Multiple fractures of ribs, bilateral, initial encounter for closed fracture (principal); J40 Bronchitis, not specified as acute or chronic; J44.9 Chronic obstructive pulmonary disease, unspecified; I10 Essential (primary) hypertension; F17.200 Nicotine dependence, unspecified, uncomplicated; X58.XXXA Exposure to other specified factors, initial encounter

== ENCOUNTER 2016-11-02 07:01 | Emergency (ER) | payer OTHER, MEDICAID ==
[2016-11-02 07:11] VITALS: RESP 16; TEMP 97.7; O2SAT 97
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
[2016-11-02] MEDS ORDERED: ACETAMINOPHEN 325 MG TAB PO ONE (09:02)
[2016-11-02] MEDS ORDERED: SKIN ADHESIVE (DERMABOND) 1 EACH TP ONE (09:08)
[2016-11-02 11:24] VITALS: BP 135/90; PULSE 88
== END 2016-11-02 11:23 | disposition home or self-care (01) ==
LOC: EDUNIT#
PROC: 0HQ1XZZ Repair Face Skin, External Approach (ICD-10-PCS; principal; 2016-11-02)
DX: S01.111A Laceration without foreign body of right eyelid and periocular area, initial encounter (principal); F10.129 Alcohol abuse with intoxication, unspecified; Y08.89XA Assault by other specified means, initial encounter; Y92.830 Public park as the place of occurrence of the external cause

== ENCOUNTER 2016-11-04 14:14 | Emergency (ER) | payer OTHER, MEDICAID ==
--- NOTE | 2016-11-04 14:23 | CPEKG ---
Heart Rate: 81 RR Interval: 741 P-R Interval: 160 QRSD Interval: 94 QT Interval: 380 QTC Interval: 441 P [place]: 30 QRS [place]: 12 T Wave [place]: 39 EKG Severity - NORMAL ECG - EKG Impression: SINUS RHYTHM Electronically Signed By: Jaime Heaton 04-Nov-2016 22:53:49
--- NOTE | 2016-11-04 14:58 | EDPHY ---
H & P Stated Complaint: "feels like an elephant is sitting on me" Time Seen by Provider: 11/04/16 14:56 HPI/ROS: CHIEF COMPLAINT: [ ] HISTORY OF PRESENT ILLNESS: [Need 4: Location, Duration, Severity, Quality, Context, Timing Modifying Factors, Associated S&S] REVIEW OF SYSTEMS: A comprehensive 10 point review of systems is otherwise negative aside from elements mentioned in the history of present illness. Source: Patient - Personal History Current Tetanus/Diphtheria Vaccine: Yes Current Tetanus Diphtheria and Acellular Pertussis (TDAP): Yes Tetanus Vaccine Date: 2015 - Medical/Surgical History Hx Asthma: No Hx Chronic Respiratory Disease: Yes Hx Diabetes: No Hx Cardiac Disease: No Hx Renal Disease: No Hx Cirrhosis: No Hx Alcoholism: Yes Hx HIV/AIDS: No Hx Splenectomy or Spleen Trauma: No Other PMH: PMH: htn, depression/anxiety,chronic back pain. tzww-[id number]-fusion, rolanda,left knee,gastric bypass, COPD, epilepsy, ETOH abuse - Social History Smoking Status: Heavy smoker Constitutional: Initial Vital Signs Temperature (C) 36.2 C 11/04/16 14:21 Heart Rate 86 11/04/16 14:21 Respiratory Rate 14 11/04/16 14:21 Blood Pressure 126/88 H 11/04/16 14:21 O2 Sat (%) 94 11/04/16 14:21 O2 Delivery Mode Room Air Allergies/Adverse Reactions: gabapentin Allergy (Verified 11/04/16 14:21) bee stings Allergy (Severe, Uncoded 10/23/16 05:22) Anaphylaxis Home Medications: Medication Instructions Recorded Lisinopril/Hctz 20/12.5MG 1 ea PO DAILY 08/01/16 [Zestoretic/Prinzide 20/12.5MG (*)] Albuterol [Ventolin Hfa Inhaler] 200 puffs IH Q4 PRN 10/18/16 Fluticasone/Salmeter 250/50Mcg 1 puffs IH BID 10/18/16 [Advair 250/50 (*)] Acetaminophen [Tylenol 325mg (*)] 650 mg PO Q4HRS PRN tab 10/21/16 Thiamine HCl [Vitamin B-1] 100 mg PO DAILY tab 10/21/16 oxyCODONE IR [Oxycodone Ir (*)] 5 mg PO Q6H PRN #14 tab 10/21/16 Albuterol [Proventil Inhaler HFA 1 - 2 puffs IH Q4H #1 mdi 10/28/16 (*)] Medical Decision Making - Diagnostics EKG Interpretation: EKG: Complete interpretation has been separately recorded in the [email or web address] archive. Summary impression: Sinus rhythm Departure - Departure Referrals: NONE *PRIMARY CARE P,. [Primary Care Provider] - As per Instructions
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
[2016-11-04 16:52] LABS: ATYPICAL LYMPHOCYTE FLAG 0 (0-99); FRAGMENT RBC FLAG 0 (0-99); LEFT SHIFT FLG 0 (0-99); LIPEMIA HEMOLYSIS FLAG 0 (0-99); PLATELET CLUMPS FLAG 0 (0-99)
[2016-11-04 17:03] LABS: ANION GAP 15 mEq/L (8-16); CALCIUM 8.2 mg/dL (8.5-10.4); CARBON DIOXIDE 18 mEq/l (22-31); CHLORIDE 109 mEq/L (97-110); CREATININE 0.6 mg/dL (0.7-1.3); ETHANOL SERUM 256 mg/dL (0-10); GLOMERULAR FILTRATION RATE > 60; GLUCOSE 69 mg/dL (70-100); POTASSIUM 3.7 mEq/L (3.5-5.2); SODIUM 142 mEq/L (134-144)
--- NOTE | 2016-11-04 17:14 | ASMTCMCOM ---
CM Note CM Note Notes: Patient presents to the ED for alcohol intoxication, for the 10th time this month. Patient has been to the ED 39 times since the beginning of 2016. Spoke to patient and he says he is "ready for help, I need treatment, I can't do this anymore." Patient wanted to go to the local detox center, [facility], but he on their "Do Not Admit" list at this time. Patient requesting assistance with getting into other alcohol treatment programs. Patient is calm, cooperative. Date Signed: 11/04/2016 05:14 PM Electronically Signed By:Melisa Dixon RN
[2016-11-04 17:17] LABS: ATYPICAL LYMPHOCYTE FLAG 0 (0-99); FRAGMENT RBC FLAG 0 (0-99); LEFT SHIFT FLG 0 (0-99); LIPEMIA HEMOLYSIS FLAG 0 (0-99); PLATELET CLUMPS FLAG 0 (0-99)
[2016-11-04 17:43] LABS: % IMMATURE GRANULYOCYTES 0.7 % (0.0-1.1); ABSOLUTE IMMATURE GRANULOCYTES 0.03 10^3/uL (0.00-0.10); ADD DIFF? NO; ADD MORPH? YES; ADD SCAN? NO; ATYPICAL LYMPHOCYTE FLAG 30 (0-99); FRAGMENT RBC FLAG 20 (0-99); HEMATOCRIT 36.9 % (40.0-51.0); HEMOGLOBIN 11.5 g/dL (13.7-17.5); LEFT SHIFT FLG 0 (0-99); LIPEMIA HEMOLYSIS FLAG 80 (0-99); MEAN CELL HEMOGLOBIN 26.1 pg (27.9-34.1); MEAN CELL HEMOGLOBIN CONCENTR. 31.2 g/dL (32.4-36.7); MEAN CELL VOLUME 83.7 fL (81.5-99.8); MEAN PLATELET VOLUME 9.5 fL (8.7-11.7); PLATELET CLUMPS FLAG 0 (0-99); PLATELET COUNT 244 10^3/uL (150-400); RED BLOOD CELL COUNT 4.41 10^6/uL (4.40-6.38)
[2016-11-04 17:45] LABS: RED CELL DISTRIBUTION WIDTH 20.4 % (11.5-15.2)
[2016-11-04 18:04] LABS: ELLIPTOCYTES 1+; HYPOCHROMIA 1+; MACROCYTES 1+; MICROCYTES 2+; PLATELET ESTIMATE ADEQUATE (ADEQ); POLYCHROMASIA 1+
[2016-11-04] MEDS ORDERED: LORazepam 1 MG TAB PO ONE ×3 (18:54→22:17)
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
[2016-11-04 20:09] VITALS: O2SAT 94
[2016-11-04] MEDS ORDERED: chlordiazePOXIDE 25 MG CAP PO ONE (22:38)
[2016-11-04] MEDS ORDERED: ACETAMINOPHEN 500 MG TAB PO ONE (22:42)
[2016-11-05] MEDS ORDERED: LORazepam 1 MG TAB ONE (02:06)
[2016-11-05] MEDS ORDERED: LORazepam 1 MG TAB PO ONE (02:06)
[2016-11-05] MEDS ORDERED: chlordiazePOXIDE 25 MG CAP ONE (02:06)
[2016-11-05] MEDS ORDERED: chlordiazePOXIDE 25 MG CAP PO ONE (02:07)
[2016-11-05] MEDS ORDERED: CHLORDIAZEPOXIDE 25MG PREPK#6 BTL TAKEHOME ONE (02:16)
[2016-11-05 03:25] VITALS: BP 175/88; PULSE 90; RESP 16; TEMP 98.2
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
== END 2016-11-05 02:30 | disposition home or self-care (01) ==
LOC: EDUNIT#
DX: R07.9 Chest pain, unspecified (principal); F10.239 Alcohol dependence with withdrawal, unspecified; S00.83XD Contusion of other part of head, subsequent encounter; J44.9 Chronic obstructive pulmonary disease, unspecified; I10 Essential (primary) hypertension; F17.200 Nicotine dependence, unspecified, uncomplicated; Y09 Assault by unspecified means
CPT/HCPCS: 80305; G0480

== ENCOUNTER 2016-11-05 03:46 | Emergency (ER) | payer OTHER, MEDICAID ==
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
[2016-11-05] MEDS ORDERED: chlordiazePOXIDE 25 MG CAP PO ONE (03:58)
[2016-11-05 03:59] VITALS: TEMP 97.7
[2016-11-05 04:36] VITALS: BP 143/88; PULSE 100; RESP 20; O2SAT 93
== END 2016-11-05 04:36 | disposition home or self-care (01) ==
LOC: EDUNIT#
DX: F10.239 Alcohol dependence with withdrawal, unspecified (principal); I10 Essential (primary) hypertension; J44.9 Chronic obstructive pulmonary disease, unspecified; F17.200 Nicotine dependence, unspecified, uncomplicated

== ENCOUNTER 2016-11-15 04:24 | Emergency (ER) | payer OTHER, MEDICAID ==
[2016-11-15] MEDS ORDERED: NS 1,000 ML IV ONE (04:28)
--- NOTE | 2016-11-15 04:33 | EDPHY ---
H & P HPI/ROS: HPI CHIEF COMPLAINT: Alcohol intoxication, fall, facial trauma HISTORY OF PRESENT ILLNESS: This patient is a 51-year-old male well known to myself as well as the emergency room significant past medical history hypertension, alcohol use alcoholism, COPD presents emergency room by EMS after he thinks he fell. He cannot recall the exact events. He has been drinking this evening. He comes in with a bloody nose. He is in a cervical collar. He does complain of a headache and neck pain. Denies chest pain or shortness of breath. He thinks he may have passed out versus for mechanical trip and fall. He is intoxicated. Past Medical History: COPD, hypertension, alcoholism Past Surgical History: Cholecystectomy, lumbar fusion Social History: Homeless, daily alcohol use Family History: Noncontributory ROS REVIEW OF SYSTEMS: A comprehensive 10 point review of systems is otherwise negative aside from elements mentioned in the history of present illness. Exam Constitutional intoxicated, smells of alcohol triage nursing summary reviewed, vital signs reviewed, awake/alert. Eyes normal conjunctivae and sclera, EOMI, PERRLA. HENT head/neck: In cervical collar placed by EMS rigid. No midline cervical spine pain no step-offs, midface stable. Bloody nose present bilateral nares dry blood. Midface stable. No crepitus. moist mucus membranes, no epistaxis, neck supple/ no meningismus, no raccoon eyes. Respiratory clear to auscultation bilaterally, normal breath sounds, no respiratory distress, no wheezing. Cardiovascular rate normal, regular rhythm, no murmur, no edema, distal pulses normal. Gastrointestinal soft, non-tender, no rebound, no guarding, normal bowel sounds, no distension, no pulsatile mass. Genitourinary no CVA tenderness. Musculoskeletal no midline vertebral tenderness, full range of motion, no calf swelling, no tenderness of extremities, no meningismus, good pulses, neurovascularly intact. Skin pink, warm, & dry, no rash, skin atraumatic. Neurologic awake, alert and oriented x 3, AAOx3, moves all 4 extremities equally, motor intact, sensory intact, CN II-XII intact, normal cerebellar, normal vision, normal speech. Psychiatric normal mood/affect. Heme/Lymph/Immune no lymphadenopathy. Differential Diagnosis: Includes but is not limited to in a particular order closed-head injury, acute alcohol intoxication, syncope, electrolyte disturbance , hypothermia, cold exposure intracranial bleed, skull fracture, cervical spine injury. Medical Decision Making: Plan for this patient full surveillance system monitor, EKG, IV establishment, IV fluid bolus, check core temp, CT scan head, CT spin cervical spine rule out trauma. Check alcohol level. Re-evaluation: EKG interpretation by me on record in [employer] system. Impression time of EKG 4:57 a.m., this is sinus rhythm rate of 80. I do not appreciate acute ischemic changes or signs of cardiac arrhythmia. 0645AM: I did re-evaluate the patient is resting comfortably no complaints. His CT scans for trauma do not show anything acute. Blood work has been reviewed. He has a nonischemic normal EKG. Troponin negative. Lytes are appropriate. He received 1 L fluid. Alcohol level noted. He is clinically sober stable gait. Safe for discharge. He has no complaints at this time. Source: Patient, EMS - Personal History Tetanus Vaccine Date: 2015 - Medical/Surgical History Hx Asthma: No Hx Chronic Respiratory Disease: Yes Hx Diabetes: No Hx Cardiac Disease: No Hx Renal Disease: No Hx Cirrhosis: No Hx Alcoholism: Yes Hx HIV/AIDS: No Hx Splenectomy or Spleen Trauma: No Other PMH: PMH: htn, depression/anxiety,chronic back pain. [id number]-fusion, rolanda,left knee,gastric bypass, COPD, epilepsy, ETOH abuse - Social History Smoking Status: Heavy smoker Constitutional: Initial Vital Signs Temperature (C) 36.4 C 11/15/16 04:40 Heart Rate 82 11/15/16 04:40 Respiratory Rate 18 11/15/16 04:40 Blood Pressure 158/95 H 11/15/16 04:40 O2 Sat (%) 97 11/15/16 04:40 O2 Delivery Mode Room Air Allergies/Adverse Reactions: gabapentin Allergy (Verified 11/15/16 04:41) bee stings Allergy (Severe, Uncoded 11/05/16 03:53) Anaphylaxis Home Medications: Medication Instructions Recorded Lisinopril/Hctz 20/12.5MG 1 ea PO DAILY 08/01/16 [Zestoretic/Prinzide 20/12.5MG (*)] Albuterol [Ventolin Hfa Inhaler] 200 puffs IH Q4 PRN 10/18/16 Fluticasone/Salmeter 250/50Mcg 1 puffs IH BID 10/18/16 [Advair 250/50 (*)] Acetaminophen [Tylenol 325mg (*)] 650 mg PO Q4HRS PRN tab 10/21/16 Thiamine HCl [Vitamin B-1] 100 mg PO DAILY tab 10/21/16 oxyCODONE IR [Oxycodone Ir (*)] 5 mg PO Q6H PRN #14 tab 10/21/16 Albuterol [Proventil Inhaler HFA 1 - 2 puffs IH Q4H #1 mdi 10/28/16 (*)] Medical Decision Making - Data Points Laboratory Results: Laboratory Results 11/15/16 06:02 11/15/16 06:02 11/15/16 11/15/16 06:02 06:02 WBC 6.20 10^3/uL 10^3/uL (3.80-9.50) RBC 3.84 10^6/uL L 10^6/uL (4.40-6.38) Hgb 10.0 g/dL L g/dL (13.7-17.5) Hct 32.4 % L % (40.0-51.0) MCV 84.4 fL fL (81.5-99.8) MCH 26.0 pg L pg (27.9-34.1) MCHC 30.9 g/dL L g/dL (32.4-36.7) RDW 19.9 % H % (11.5-15.2) Plt Count 203 10^3/uL 10^3/uL (150-400) MPV 10.0 fL fL (8.7-11.7) Neut % (Auto) 72.6 % % (39.3-74.2) Lymph % (Auto) 17.7 % % (15.0-45.0) [place] % (Auto) 8.2 % % (4.5-13.0) Eos % (Auto) 0.6 % % (0.6-7.6) Baso % (Auto) 0.3 % % (0.3-1.7) Nucleat RBC Rel Count 0.0 % % (0.0-0.2) Absolute Neuts (auto) 4.49 10^3/uL 10^3/uL (1.70-6.50) Absolute Lymphs (auto) 1.10 10^3/uL 10^3/uL (1.00-3.00) Absolute Monos (auto) 0.51 10^3/uL 10^3/uL (0.30-0.80) Absolute Eos (auto) 0.04 10^3/uL 10^3/uL (0.03-0.40) Absolute Basos (auto) 0.02 10^3/uL 10^3/uL (0.02-0.10) Absolute Nucleated RBC 0.00 10^3/uL 10^3/uL (0-0.01) Immature Gran % 0.6 % % (0.0-1.1) Immature Gran # 0.04 10^3/uL 10^3/uL (0.00-0.10) Sodium 146 mEq/L H mEq/L (134-144) Potassium 3.7 mEq/L mEq/L (3.5-5.2) Chloride 109 mEq/L mEq/L (97-110) Carbon Dioxide 22 mEq/l mEq/l (22-31) Anion Gap 15 mEq/L mEq/L (8-16) BUN 7 mg/dL mg/dL (7-23) Creatinine 0.6 mg/dL L mg/dL (0.7-1.3) Estimated GFR > 60 Glucose 80 mg/dL mg/dL (70-100) Calcium 8.1 mg/dL L mg/dL (8.5-10.4) Troponin I < 0.012 ng/mL ng/mL (0.000-0.034) Ethyl Alcohol 173 mg/dL H mg/dL (0-10) Medications Given: Discontinued Medications Sodium Chloride (Ns) 1,000 mls @ 0 mls/hr IV EDNOW ONE; Wide Open PRN Reason: Protocol Stop: 11/15/16 04:29 Last Admin: 11/15/16 06:05 Dose: 1,000 mls Departure - Departure Disposition: Home, Routine, Self-Care Clinical Impression: Alcohol intoxication Qualifiers: Complication of substance-induced condition: uncomplicated Qualified Code(s): F10.920 - Alcohol use, unspecified with intoxication, uncomplicated Fall Qualifiers: Encounter type: initial encounter Qualified Code(s): W19.XXXA - Unspecified fall, initial encounter Condition: Good Instructions: Fall Prevention (ED), Alcohol Intoxication (ED) Referrals: Mandie Howard [Primary Care Provider] - As per Instructions
[2016-11-15 04:41] VITALS: RESP 18
--- NOTE | 2016-11-15 04:59 | CPEKG ---
Heart Rate: 80 RR Interval: 750 P-R Interval: 152 QRSD Interval: 72 QT Interval: 388 QTC Interval: 448 P [place]: 16 QRS [place]: 25 T Wave [place]: 44 EKG Severity - NORMAL ECG - EKG Impression: SINUS RHYTHM Electronically Signed By: Yang Solomon 15-Nov-2016 07:14:16
[2016-11-15 06:12] LABS: % IMMATURE GRANULYOCYTES 0.6 % (0.0-1.1); ABSOLUTE IMMATURE GRANULOCYTES 0.04 10^3/uL (0.00-0.10); ADD DIFF? NO; ADD MORPH? NO; ADD SCAN? NO; ATYPICAL LYMPHOCYTE FLAG 10 (0-99); FRAGMENT RBC FLAG 0 (0-99); HEMATOCRIT 32.4 % (40.0-51.0); LEFT SHIFT FLG 10 (0-99); LIPEMIA HEMOLYSIS FLAG 80 (0-99); MEAN CELL HEMOGLOBIN CONCENTR. 30.9 g/dL (32.4-36.7); MEAN CELL VOLUME 84.4 fL (81.5-99.8); PLATELET CLUMPS FLAG 20 (0-99); PLATELET COUNT 203 10^3/uL (150-400); RED BLOOD CELL COUNT 3.84 10^6/uL (4.40-6.38); RED CELL DISTRIBUTION WIDTH 19.9 % (11.5-15.2)
[2016-11-15 06:23] LABS: ANION GAP 15 mEq/L (8-16); CALCIUM 8.1 mg/dL (8.5-10.4); CARBON DIOXIDE 22 mEq/l (22-31); CHLORIDE 109 mEq/L (97-110); CREATININE 0.6 mg/dL (0.7-1.3); ETHANOL SERUM 173 mg/dL (0-10); GLOMERULAR FILTRATION RATE > 60; GLUCOSE 80 mg/dL (70-100); POTASSIUM 3.7 mEq/L (3.5-5.2); SODIUM 146 mEq/L (134-144)
[2016-11-15 06:34] LABS: TROPONIN I < 0.012 ng/mL (0.000-0.034)
[2016-11-15 06:58] VITALS: BP 153/78; PULSE 79; TEMP 97.7; O2SAT 96
== END 2016-11-15 07:23 | disposition home or self-care (01) ==
LOC: EDUNIT#
PROC: 3E0337Z Introduction of Electrolytic and Water Balance Substance into Peripheral Vein, Percutaneous Approach (ICD-10-PCS; principal; 2016-11-15)
DX: F10.920 Alcohol use, unspecified with intoxication, uncomplicated (principal); J44.9 Chronic obstructive pulmonary disease, unspecified; I10 Essential (primary) hypertension; F17.200 Nicotine dependence, unspecified, uncomplicated; W18.39XA Other fall on same level, initial encounter
CPT/HCPCS: G0480

== ENCOUNTER 2016-11-17 14:39 | Emergency (ER) | payer OTHER, MEDICAID ==
[2016-11-17 14:49] VITALS: O2SAT 93
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
[2016-11-17] MEDS ORDERED: IPRATROPIUM/ALBUTEROL 3 ML DEYVIAL IH ONE (15:24)
[2016-11-17] MEDS ORDERED: LORazepam 2 MG/ML INJ IVP ONE (15:25)
[2016-11-17 15:28] LABS: % IMMATURE GRANULYOCYTES 0.2 % (0.0-1.1); ABSOLUTE IMMATURE GRANULOCYTES 0.01 10^3/uL (0.00-0.10); ADD DIFF? NO; ADD MORPH? NO; ADD SCAN? NO; ATYPICAL LYMPHOCYTE FLAG 10 (0-99); FRAGMENT RBC FLAG 20 (0-99); HEMATOCRIT 31.5 % (40.0-51.0); HEMOGLOBIN 9.7 g/dL (13.7-17.5); LEFT SHIFT FLG 0 (0-99); LIPEMIA HEMOLYSIS FLAG 80 (0-99); MEAN CELL HEMOGLOBIN 25.5 pg (27.9-34.1); MEAN CELL HEMOGLOBIN CONCENTR. 30.8 g/dL (32.4-36.7); MEAN CELL VOLUME 82.9 fL (81.5-99.8); MEAN PLATELET VOLUME 9.6 fL (8.7-11.7); PLATELET CLUMPS FLAG 0 (0-99); PLATELET COUNT 237 10^3/uL (150-400); RED CELL DISTRIBUTION WIDTH 19.6 % (11.5-15.2)
[2016-11-17 15:34] LABS: ANION GAP 10 mEq/L (8-16); CALCIUM 8.3 mg/dL (8.5-10.4); CARBON DIOXIDE 25 mEq/l (22-31); CHLORIDE 105 mEq/L (97-110); CREATININE 0.7 mg/dL (0.7-1.3); GLOMERULAR FILTRATION RATE > 60; GLUCOSE 81 mg/dL (70-100); POTASSIUM 4.2 mEq/L (3.5-5.2); SODIUM 140 mEq/L (134-144)
[2016-11-17 16:37] VITALS: BP 156/97; PULSE 95; RESP 20; TEMP 97.5
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
== END 2016-11-17 16:37 | disposition home or self-care (01) ==
DX: J44.9 Chronic obstructive pulmonary disease, unspecified (principal); I10 Essential (primary) hypertension; F17.210 Nicotine dependence, cigarettes, uncomplicated; F10.230 Alcohol dependence with withdrawal, uncomplicated
CPT/HCPCS: 96374; 99284; J2060

== ENCOUNTER 2016-11-26 18:36 | Emergency (ER) | payer OTHER, MEDICAID ==
--- NOTE | 2016-11-26 18:49 | EDPHY ---
H & P - Personal History Tetanus Vaccine Date: 2015 - Medical/Surgical History Hx Asthma: No Hx Chronic Respiratory Disease: Yes Hx Diabetes: No Hx Cardiac Disease: No Hx Renal Disease: No Hx Cirrhosis: No Hx Alcoholism: Yes Hx HIV/AIDS: No Hx Splenectomy or Spleen Trauma: No Other PMH: PMH: htn, depression/anxiety,chronic back pain. [id number]-fusion, rolanda,left knee,gastric bypass, COPD, epilepsy, ETOH abuse - Social History Smoking Status: Heavy smoker HPI/ROS: CHIEF COMPLAINT: Alcohol usage, fall HISTORY OF PRESENT ILLNESS: 51-year-old male arrives via ambulance, not a trauma activation, after he was found to be drinking alcohol, sustained a fall in front of EMS sustaining laceration to his left zygomatic arch and impacted his left frontal region with no loss of consciousness, no seizure activity. Admits to alcohol use. History of alcoholism. At initial interview him the information is not obtainable secondary to his altered mental status possibly related to acute alcohol usage. REVIEW OF SYSTEMS: A ten point review of systems was performed and is negative with the exception of the items mentioned in the HPI PAST MEDICAL/SURGICAL HISTORY: no anticoagulant use, alcoholism SOCIAL HISTORY: Positive alcohol use PHYSICAL EXAM 1) GENERAL: poorly kept, foul smelling, dirty, alert and oriented. Appears to be in no acute distress. Answering questions appropriately. 2) HEAD: Normocephalic, atraumatic 3) HEENT: Pupils equal, round, reactive to light bilaterally. Negative Horners. Nasopharynx, oropharynx, clear. No deformity or angulation of nose. No septal hematoma. No rhinorrhea. No oral trauma. Left infraorbital 3 cm laceration does not involve the lid margin or extend to the lid margin Ears bilaterally with normal tympanic membranes. No hemotympanum. No fluid or blood in the external auditory canal. No raccoon eyes. No Rosenbaum sign. Teeth are normally aligned with no gross malocclusion, TMJ bilaterally nontender, facial bones nontender including the zygomatic arch, maxilla mandible. 4) NECK: Cervical collar is on. Cervical collar left in place secondary to acute alcohol use and altered mental status 5) LUNGS: Clear to auscultation bilaterally, no wheezes, no rhonchi, no retractions. No obvious signs of trauma. No chest wall pain. No flaring, no grunting. Moving symmetrically. No crepitus. 6) HEART: Regular rate and rhythm, 7) ABDOMEN: No guarding, no rebound, no focal tenderness, no peritoneal signs, no signs of trauma, no ecchymosis 8) MUSCULOSKELETAL: Moving all extremities, no focal areas of tenderness, no obvious trauma. 9) BACK: Patient logrolled while holding inline traction.No midline vertebral tenderness, no fluctuance, no step-off, no obvious trauma, no visual or palpable abnormality. 10) SKIN: facial laceration DIFFERENTIAL DIAGNOSIS: Not necessarily in any particular order, my differential diagnosis includes, but is not limited to, concussion, skull fracture, intraparenchymal contusion, subarachnoid, subdural and epidural hematoma. The patient understands that this diagnosis is provisional and can never be 100% accurate. (Damaris Ibarra) Constitutional: Initial Vital Signs Temperature (C) 36.5 C 11/26/16 18:40 Heart Rate 75 11/26/16 18:40 Respiratory Rate 18 11/26/16 18:40 Blood Pressure 131/88 H 11/26/16 18:40 O2 Sat (%) 93 11/26/16 18:40 O2 Delivery Mode Room Air O2 (L/minute) 2 Allergies/Adverse Reactions: gabapentin Allergy (Verified 11/17/16 14:43) bee stings Allergy (Severe, Uncoded 11/05/16 03:53) Anaphylaxis Home Medications: Medication Instructions Recorded Lisinopril/Hctz 20/12.5MG 1 ea PO DAILY 08/01/16 [Zestoretic/Prinzide 20/12.5MG (*)] oxyCODONE IR [Oxycodone Ir (*)] 5 mg PO Q6H PRN #14 tab 10/21/16 Medical Decision Making - Diagnostics Imaging: Discussed imaging studies w/ call or contact centre manager Radiologist Procedures: Procedure: Laceration repair. The laceration on the left infraorbital region was anesthetized using 0.5% bupivicaine with epinephrine . After anesthetic administered the patient was observed for a period of time and had no apparent adverse effects. The wound was cleaned, prepped, draped in normal sterile fashion and explored to its base. No foreign body seen, no foreign bodies palpated. There were no deep structures involved. No involvement of the lid margin The wound was repaired with 6 simple interrupted 6 0 Prolene suture . The wound repair was simple. The procedure was performed by myself. Patient has been informed that scarring will occur, although efforts have been made to minimize this. (Damaris Ibarra) ED Course/Re-evaluation: Serial exams performed on this patient, recent exam at 10:15 p.m. he has progressively more awake and alert. 11:01 p.m.: Re-evaluation, progressively more awake 11:37 p.m.: Patient progressively more awake Midnight: Care turned over to Dr. Solomon, plan will be waiting until patient is sober enough to be re-evaluated and have his cervical collar discharged, [facility] (Damaris Ibarra) 0230: Patient ambulated well. Sober. Clinically stable. Ready for discharge. (Yang Solomon) - Data Points Medications Given: Discontinued Medications Chlordiazepoxide (Librium 25 Mg Prepack#6) 1 btl TAKEHOME EDNOW ONE Stop: 11/26/16 23:24 Last Admin: 11/27/16 01:50 Dose: 1 btl Departure - Departure Disposition: Home, Routine, Self-Care Clinical Impression: Alcohol abuse Facial laceration Qualifiers: Encounter type: initial encounter Qualified Code(s): S01.81XA - Laceration without foreign body of other part of head, initial encounter Condition: Good Instructions: Chlordiazepoxide (By mouth), Care For Your Stitches (ED), Laceration (ED), Abuse of Alcohol (ED) Additional Instructions: Return to the ER in 5 days for suture removal Referrals: Return, to the ER in 5 days for suture removal [Other] - 12/01/16
[2016-11-26] MEDS ORDERED: CHLORDIAZEPOXIDE 25MG PREPK#6 BTL TAKEHOME ONE (23:23)
[2016-11-27] MEDS ORDERED: CHLORDIAZEPOXIDE 25MG PREPK#6 BTL TAKEHOME ONE (01:48)
[2016-11-27 01:52] VITALS: BP 157/95; PULSE 90; RESP 18; TEMP 98.6; O2SAT 96
== END 2016-11-27 01:51 | disposition home or self-care (01) ==
LOC: EDUNIT#
PROC: 0HQ1XZZ Repair Face Skin, External Approach (ICD-10-PCS; principal; 2016-11-26)
DX: S01.81XA Laceration without foreign body of other part of head, initial encounter (principal); F10.10 Alcohol abuse, uncomplicated; I10 Essential (primary) hypertension; J44.9 Chronic obstructive pulmonary disease, unspecified; F17.200 Nicotine dependence, unspecified, uncomplicated; W19.XXXA Unspecified fall, initial encounter; Y99.8 Other external cause status

== ENCOUNTER 2016-12-05 18:07 | Emergency (ER) | payer OTHER, MEDICAID ==
[~2016-12-05 18:07] MED LIST changes: +LISINOPRIL/HCTZ 20/12.5MG 1 EA TAB PO SCH
[2016-12-05 18:17] VITALS: TEMP 99
--- NOTE | 2016-12-05 18:56 | EDPHY ---
H & P Time Seen by Provider: 12/05/16 18:22 HPI/ROS: HPI Seizure. 51-year-old male who is well known to our emergency department. This patient has a history of a seizure disorder. He is homeless. [facility] He was sitting on a bench. He was getting ready to have a cigarette when he had a seizure. He fell forward and struck his head on the ground. EMS was called and he was delivered to our emergency department. Right now he does not have any complaints. No headache. No neck pain. No loss of sensation or weakness in his extremities. He reports that he ran out of his Dilantin a couple of days ago. He has a history of noncompliance with medications or ROS: Constitutional: No fever, no chills. No weakness. As above. Eyes: No discharge. No changes in vision. ENT: No sore throat. No nasal congestion or rhinorrhea. Respiratory: No cough. No shortness of breath. Cardiac: No chest pain, no palpitations. Gastrointestinal: No abdominal pain, no vomiting, no diarrhea. Genitourinary: No hematuria. No dysuria or increased frequency with urination. Musculoskeletal: No back pain. No neck pain. No myalgias or arthralgias. Skin: No rashes. Abrasions to forehead. Neurological: No headache. No focal weakness or altered sensation. Past medical history: Hypertension, depression, chronic pain, anxiety, lumbar fusion, cholecystectomy, gastric bypass, COPD, alcohol abuse, epilepsy. Social history: Smoker. Alcohol abuse, homeless. Physical Exam: General Appearance: Alert, no distress. This patient is responding to questions appropriately and in full sentences. This patient appears well- hydrated and well-nourished. Head: Normocephalic atraumatic except for a mid forehead abrasion which is superficial. No suturable laceration. No bony step-off or crepitus noted on palpation of this area. Face: Facial bones are stable on palpation. Eyes: Pupils equal and round and reactive to light, no pallor or injection. No lid erythema or edema. ENT, Mouth: Mucous membranes moist. Dentition is intact. No malocclusion of the jaw. No tongue lacerations or abrasions. Pharynx is clear. The bilateral nasal canals are clear. No septal hematoma. Respiratory: There are no retractions, lungs are clear to auscultation with good air movement bilaterally. Chest wall is stable to AP and lateral palpation. Cardiovascular: Regular rate and rhythm. No murmur. Gastrointestinal: Abdomen is soft and nontender, no masses, bowel sounds normal. Neurological: Motor sensory function is intact. Cranial nerves are normal. Cerebellar function intact. Skin: Warm and dry, no rashes. No lacerations, as above. He has a contusion associated with his forehead abrasion. He also has abrasions to the metacarpal phalangeal joints, dorsal aspect of the left hand. No suturable lacerations. Musculoskeletal: Neck is supple and nontender. The trachea is midline. No midline cervical, thoracic, lumbar or sacral tenderness on palpation. No flank tenderness on palpation. Extremities are symmetrical, full range of motion. All joints in the bilateral upper and bilateral lower extremities range without pain or impingement. No tenderness on palpation of the long bones in the bilateral upper and bilateral lower extremities. Psychiatric: No agitation. No depression. Database: EKG: Imaging: Procedures: Emergency department course: Vital signs reviewed. He was hypertensive in triage. On my evaluation blood pressure 161/82. Vital signs otherwise unremarkable. He tells me that he ran out of his medications 3 days ago. I will fill a prescription for Dilantin 100 mg 3 times daily for 7 days through the assistance program. I will also fill a prescription for his blood pressure medication through this program. He feels [facility] Plan will be to have [facility] for [facility]uation and refill of his prescription medications in the next 2-3 days. He endorses this plan. Return to emergency department precautions reviewed with him. All of his questions were answered. He was discharged in good condition. Differential Diagnosis: The differential diagnosis on this patient includes but is not limited to breakthrough seizure, uncontrolled hypertension. Skull fracture, cervical spine fracture, traumatic brain injury, CVA, arrhythmia unlikely. This represents a partial list of diagnoses considered. These considerations are based on history, physical exam, past history, reassessment and diagnostic testing. Smoking Status: Heavy smoker Constitutional: Initial Vital Signs Temperature (C) 37.2 C 12/05/16 18:15 Heart Rate 95 12/05/16 18:15 Respiratory Rate 20 12/05/16 18:15 Blood Pressure 193/113 H 10/25/17 18:15 O2 Sat (%) 92 12/05/16 18:15 O2 Delivery Mode Room Air Allergies/Adverse Reactions: gabapentin Allergy (Verified 11/17/16 14:43) bee stings Allergy (Severe, Uncoded 11/05/16 03:53) Anaphylaxis Home Medications: Medication Instructions Recorded Lisinopril/Hctz 20/12.5MG 1 ea PO DAILY 08/01/16 [Zestoretic/Prinzide 20/12.5MG (*)] Dilantin 12/05/16 Lisinopril/Hctz 20/12.5MG 1 ea PO DAILY #10 tab 12/05/16 [Zestoretic/Prinzide 20/12.5MG (*)] Phenytoin Sodium Extended 100 mg PO TID #21 cap 12/05/16 [Dilantin (*)] Departure - Departure Disposition: Home, Routine, Self-Care Clinical Impression: Breakthrough seizure, Uncontrolled hypertension Condition: Good Instructions: Recurrent Seizures in Adults (ED), Hypertension (ED) Additional Instructions: Read and follow provided instructions. Follow-up with your primary care physician at [facility] in 1-2 days for re -evaluation and ongoing management of your seizures in blood pressure. It is very important you do this. Have your prescriptions refilled this week through [facility] so you have medication going forward.. Take medication as prescribed only. Return to the emergency department for seizure, chest pain, shortness of breath , vomiting, headache, worsening symptoms or other serious concerns. Referrals: [facility],. [Clinic] - As per Instructions Prescriptions: Lisinopril/Hctz 20/12.5MG [Zestoretic/Prinzide 20/12.5MG (*)] 1 ea PO DAILY #10 tab Phenytoin Sodium Extended [Dilantin (*)] 100 mg PO TID #21 cap
[2016-12-05 19:36] VITALS: BP 160/87; PULSE 84; RESP 16; O2SAT 97
== END 2016-12-05 19:42 | disposition home or self-care (01) ==
LOC: EDUNIT#
DX: G40.909 Epilepsy, unspecified, not intractable, without status epilepticus (principal); I10 Essential (primary) hypertension; J44.9 Chronic obstructive pulmonary disease, unspecified; F17.200 Nicotine dependence, unspecified, uncomplicated

== ENCOUNTER 2016-12-05 21:21 | Emergency (ER) | payer OTHER, MEDICAID ==
[2016-12-05 21:28] VITALS: RESP 16; TEMP 98.1
[2016-12-05] MEDS ORDERED: PHENYTOIN SODIUM 1,000 MG in NS 100 ML IV ONE (21:28)
--- NOTE | 2016-12-05 21:31 | EDPHY ---
H & P Smoking Status: Heavy smoker Time Seen by Provider: 12/05/16 21:23 HPI/ROS: HPI Seizure. 51-year-old male by ambulance in a cervical collar. I just saw this patient may be an hour ago in the emergency department. He is very familiar to our emergency department and hospital. He has a history of epilepsy. He is noncompliant with his seizure medications. We filled a prescription for Dilantin through our assistance program. [facility]. He reports that when he was back at the [facility] eating dinner he had another seizure, fell struck his head. He also complains of some neck soreness on the right lateral aspect of the neck. No loss of sensation or weakness in his extremities. Complains of a mild dull gradual onset headache. No extremity pain. No other complaints. ROS: Constitutional: No fever, no chills. As above. Eyes: No discharge. No changes in vision. ENT: No sore throat. No nasal congestion or rhinorrhea. Respiratory: No cough. No shortness of breath. Cardiac: No chest pain, no palpitations. Gastrointestinal: No abdominal pain, no vomiting, no diarrhea. Genitourinary: No hematuria. No dysuria or increased frequency with urination. Musculoskeletal: No back pain. As above. Skin: No rashes. Neurological: As above. No focal weakness or altered sensation. Past medical history: Epilepsy. Noncompliance with his medications. Please see my previous note for further details. Social history: Alcohol abuse. Smoker. Homeless. Physical Exam: General Appearance: Alert, no distress. Is in a cervical collar. This patient is responding to questions appropriately and in full sentences. This patient appears well-hydrated and well-nourished. Head: Normocephalic atraumatic. He now has a midline forehead laceration with an associated contusion and abrasion. Laceration measures approximately 2.5 cm. Please see wound care note for further details. Face: Facial bones are stable on palpation. He has a laceration underneath the left lateral eyelid. This measures approximately 2.5 cm. No bony step-off or crepitus noted on palpation of this area. Eyes: Pupils equal and round and reactive to light, no pallor or injection. No lid erythema or edema. ENT, Mouth: Mucous membranes moist. Dentition is intact. No malocclusion of the jaw. No tongue lacerations or abrasions. Pharynx is clear. The bilateral nasal canals are clear. No septal hematoma. Respiratory: There are no retractions, lungs are clear to auscultation with good air movement bilaterally. Chest wall is stable to AP and lateral palpation. Cardiovascular: Regular rate and rhythm. No murmur. Gastrointestinal: Abdomen is soft and nontender, no masses, bowel sounds normal. Neurological: Motor sensory function is intact. Cranial nerves are normal. Cerebellar function intact. Skin: Warm and dry, no rashes. No lacerations, abrasions or contusions. Musculoskeletal: Neck is supple with right-sided paraspinal tenderness on palpation which is mild and vague from C2 through see 5. The trachea is midline. No midline cervical, thoracic, lumbar or sacral tenderness on palpation. No flank tenderness on palpation. Extremities are symmetrical, full range of motion. All joints in the bilateral upper and bilateral lower extremities range without pain or impingement. No tenderness on palpation of the long bones in the bilateral upper and bilateral lower extremities. Psychiatric: No agitation. No depression. Database: EKG: Imaging: CT scan of head without contrast: Sinusitis. Otherwise negative. Results were discussed with staff radiologist Dr. Rubio Reynolds. CT scan of cervical spine without contrast: Negative for fracture, subluxation , dislocation Procedures: Please see laceration repair notes by physician inventory assistant. Emergency department course: IV was placed. He was placed on a monitor. Vital signs were reviewed. He was sent for CT imaging of his head and cervical spine. He was given 1 g of IV Dilantin 500 mg of oral Dilantin. Wound repair as above. 10:30 p.m., patient re-evaluated. He is resting comfortably at this time. He is getting his IV Dilantin. Results of his CT scans discussed with him. Wound care to ensue shortly. Is cervical collar was clinically and radiographically cleared by myself. Plan will be to discharge him home after wound repair. I discussed the importance of him taking his seizure medications. He has prescriptions for both his blood pressure medication and Dilantin which were fill here through our assistance program at the [facility]. Differential Diagnosis: The differential diagnosis on this patient includes but is not limited to breakthrough seizures, facial laceration. Skull fracture, cervical spine fracture, facial fracture, other significant traumatic injury unlikely. This represents a partial list of diagnoses considered. These considerations are based on history, physical exam, past history, reassessment and diagnostic testing. (Renetta Do) Constitutional: Initial Vital Signs Temperature (C) 36.7 C 12/05/16 21:27 Heart Rate 93 12/05/16 21:27 Respiratory Rate 16 12/05/16 21:27 Blood Pressure 160/98 H 12/05/16 21:27 O2 Sat (%) 98 12/05/16 21:27 O2 Delivery Mode Room Air Allergies/Adverse Reactions: gabapentin Allergy (Verified 12/05/16 21:29) bee stings Allergy (Severe, Uncoded 12/05/16 21:29) Anaphylaxis Home Medications: Medication Instructions Recorded Lisinopril/Hctz 20/12.5MG 1 ea PO DAILY 08/01/16 [Zestoretic/Prinzide 20/12.5MG (*)] Dilantin 12/05/16 Lisinopril/Hctz 20/12.5MG 1 ea PO DAILY #10 tab 12/05/16 [Zestoretic/Prinzide 20/12.5MG (*)] Phenytoin Sodium Extended 100 mg PO TID #21 cap 12/05/16 [Dilantin (*)] Medical Decision Making - Diagnostics Imaging Results: Imaging Impressions Cervical Spine CT 12/05/16 21:35 Impression: 1. No acute osseous abnormality seen about the cervical spine. 2. Degenerative disk disease throughout the cervical spine along with ossification of the posterior longitudinal ligament contributing to moderate to severe spinal stenosis most prominent at C3-C4. Findings discussed with Renetta Do MD at 22:10 hour, 12/05/2016. Head CT 12/05/16 21:35 Impression: 1. No significant intracranial abnormality seen. 2. Development of maxillary sinus disease. If symptoms worsen, additional imaging may be necessary. Findings discussed with Renetta Do MD at 22:09 hour, 12/05/2016. Other Provider: Procedure: Laceration repair. Verbal consent was obtained from the patient. The 2.5 cm simple, linear forehead laceration was anesthetized in the usual fashion. The wound was irrigated, draped and explored to its base with a gloved finger. There were no deep structures involved. No tendon injury was identified. The wound was repaired with #5, 6-0 Prolene simple interrupted pattern with good hemostasis achieved. The procedure was performed by myself. Procedure: Laceration repair. Verbal consent was obtained from the patient. The 2.5 cm linear laceration on the flutter I was anesthetized in the usual fashion. The wound was irrigated, draped and explored to its base with a gloved finger. There were no deep structures involved. No tendon injury was identified. The wound was repaired with #4, 5-0 Ethilon in a simple interrupted pattern with good hemostasis. The procedure was performed by myself. (Jamila Fournier) - Data Points Laboratory Results: Laboratory Results 12/05/16 21:25 12/05/16 21:25 Sodium 140 mEq/L mEq/L (134-144) Potassium 3.2 mEq/L L mEq/L (3.5-5.2) Chloride 106 mEq/L mEq/L (97-110) Carbon Dioxide 24 mEq/l mEq/l (22-31) Anion Gap 10 mEq/L mEq/L (8-16) BUN 11 mg/dL mg/dL (7-23) Creatinine 0.7 mg/dL mg/dL (0.7-1.3) Estimated GFR > 60 Glucose 100 mg/dL mg/dL (70-100) Calcium 7.8 mg/dL L mg/dL (8.5-10.4) Medications Given: Discontinued Medications Phenytoin Sodium 1,000 mg/ (Sodium Chloride) 120 mls @ 360 mls/hr IV EDNOW ONE Stop: 12/05/16 21:47 Last Admin: 12/05/16 22:02 Dose: 120 mls Phenytoin Sodium (Dilantin) 500 mg PO EDNOW ONE Stop: 12/05/16 21:35 Last Admin: 12/05/16 22:05 Dose: 500 mg Departure - Departure Disposition: Home, Routine, Self-Care Clinical Impression: Breakthrough seizure, Face lacerations Condition: Good Instructions: Recurrent Seizures in Adults (ED), Facial Laceration (ED) Additional Instructions: Read and follow provided instructions. Follow-up with your primary care physician in 1-2 days for re-evaluation and ongoing management of your seizure disorder. It is very important you get her medications refilled for your blood pressure and seizure disorder through your primary care physician and that you take these medications consistently. Take medication as prescribed only. Sutures are to be removed in 7 days. Return to the emergency department for worsening symptoms or other serious concerns. Referrals: [facility],. [Clinic] - As per Instructions
[2016-12-05] MEDS ORDERED: PHENYTOIN SODIUM EXTENDED 100 MG CAP PO ONE (21:34)
[2016-12-05 22:16] LABS: ANION GAP 10 mEq/L (8-16); CALCIUM 7.8 mg/dL (8.5-10.4); CARBON DIOXIDE 24 mEq/l (22-31); CHLORIDE 106 mEq/L (97-110); CREATININE 0.7 mg/dL (0.7-1.3); GLOMERULAR FILTRATION RATE > 60; GLUCOSE 100 mg/dL (70-100); POTASSIUM 3.2 mEq/L (3.5-5.2); SODIUM 140 mEq/L (134-144)
[2016-12-05 23:45] VITALS: BP 134/92; PULSE 85; O2SAT 96
== END 2016-12-05 23:46 | disposition home or self-care (01) ==
LOC: EDUNIT#
PROC: 0HQ1XZZ Repair Face Skin, External Approach (ICD-10-PCS; principal; 2016-12-05)
DX: G40.909 Epilepsy, unspecified, not intractable, without status epilepticus (principal); S01.81XA Laceration without foreign body of other part of head, initial encounter; F17.200 Nicotine dependence, unspecified, uncomplicated; W01.198A Fall on same level from slipping, tripping and stumbling with subsequent striking against other object, initial encounter
CPT/HCPCS: 96365

== ENCOUNTER 2017-01-14 03:04 | Emergency (ER) | payer OTHER, MEDICAID ==
[~2017-01-14 03:04] MED LIST changes: -LISINOPRIL/HCTZ 20/12.5MG 1 EA TAB PO SCH
[2017-01-14] MEDS ORDERED: PHENYTOIN SODIUM 100 MG/2 ML VIAL IVP ONE (03:11)
[2017-01-14] MEDS ORDERED: DIAZEPAM 10 MG/2 ML SYR IVP ONE (03:13)
[2017-01-14 03:15] VITALS: TEMP 98.8
[2017-01-14] MEDS ORDERED: NS 1,000 ML IV ONE (03:17)
--- NOTE | 2017-01-14 03:36 | EDPHY ---
H & P Time Seen by Provider: 01/14/17 03:15 HPI/ROS: HPI Seizure. 51-year-old male by ambulance. Long history of seizure disorder, alcohol abuse and noncompliance with his medications. He has been seen multiple times in our emergency department for this complaint. [facility] His roommate here heard him fall out of bed. He reports that he had a seizure. He reports that he is not taking his Dilantin in 3-4 days because he ran out of it. He also reports that he drank shots of hard liquor yesterday but has not had any alcohol since then. He states that he feels like he is withdrawing from alcohol at this time. He denies any other complaints. ROS: Constitutional: No fever, no chills. As above. Eyes: No discharge. No changes in vision. ENT: No sore throat. No nasal congestion or rhinorrhea. Respiratory: No cough. No shortness of breath. Cardiac: No chest pain, no palpitations. Gastrointestinal: No abdominal pain, no vomiting, no diarrhea. Genitourinary: No hematuria. No dysuria or increased frequency with urination. Musculoskeletal: No back pain. No neck pain. No myalgias or arthralgias. Skin: No rashes. Neurological: No headache. No focal weakness or altered sensation. Past medical history: Hypertension, depression, anxiety, alcohol abuse, seizure disorder, noncompliance with seizure medications, chronic back pain, lumbar fusion, cholecystectomy, left knee surgery, gastric bypass surgery, COPD. Social history: [facility]. Heavy smoker. Alcohol abuse. Physical Exam: General Appearance: Alert, mildly anxious but no distress. This patient is responding to questions appropriately and in full sentences. This patient appears well-hydrated and well-nourished. Eyes: Pupils equal and round no pallor or injection. No lid edema, erythema or injection. ENT, Mouth: Mucous membranes are moist. The pharyngeal tissues are unremarkable. No edema or swelling. No asymmetry suggestive of abscess. No erythema or exudates. No tongue lacerations or abrasions. Respiratory: There are no retractions, lungs are clear to auscultation with good air movement bilaterally. Cardiovascular: Regular rate and rhythm. No murmur. Gastrointestinal: Abdomen is soft and nontender, no masses, bowel sounds normal. No focal tenderness at McBurney's point. No Pierre sign. Neurological: Motor sensory function is grossly intact. Cranial nerves are normal. Cerebellar fraction normal. Mild resting tremor noted. Skin: Warm and dry, no rashes. Musculoskeletal: Neck is supple and nontender. Extremities are symmetrical. All joints range without pain or impingement. Psychiatric: No agitation. No depression. Database: EKG: Imaging: Procedures: Emergency department course: Vital signs reviewed. IV was established. His Dilantin level will be checked. He will be loaded with IV Dilantin if appropriate. He was given 10 mg of IV Valium for probable alcohol withdrawal. He was started on IV normal saline with 1 L to be given over the next hour. 4:35 a.m., the patient was given 1 g of IV Dilantin. His tachycardia has resolved. Blood pressure currently 156/106. He states he feels much better. I will fill a prescription for Dilantin for him through our assistance program. [facility] will be [facility]. Follow-up and return to emergency department precautions reviewed with him. All of his questions were answered. He was discharged in good condition. Differential Diagnosis: The differential diagnosis on this patient includes but is not limited to history of epilepsy, noncompliance with seizure medications, alcohol abuse, alcohol withdrawal, alcohol withdrawal seizure. This represents a partial list of diagnoses considered. These considerations are based on history, physical exam, past history, reassessment and diagnostic testing. Smoking Status: Heavy smoker Constitutional: Initial Vital Signs Temperature (C) 37.1 C 01/14/17 03:14 Heart Rate 102 H 01/14/17 03:14 Respiratory Rate 20 01/14/17 03:14 Blood Pressure 152/110 H 01/14/17 03:14 O2 Sat (%) 97 01/14/17 03:14 O2 Delivery Mode Room Air Allergies/Adverse Reactions: gabapentin Allergy (Verified 01/14/17 03:14) bee stings Allergy (Severe, Uncoded 01/14/17 03:14) Anaphylaxis Home Medications: Medication Instructions Recorded Lisinopril/Hctz 20/12.5MG 1 ea PO DAILY 08/01/16 [Zestoretic/Prinzide 20/12.5MG (*)] Dilantin 12/05/16 Lisinopril/Hctz 20/12.5MG 1 ea PO DAILY #10 tab 12/05/16 [Zestoretic/Prinzide 20/12.5MG (*)] Phenytoin Sodium Extended 100 mg PO TID #21 cap 12/05/16 [Dilantin (*)] Phenytoin Sodium Extended 100 mg PO TID #21 cap 01/14/17 [Dilantin (*)] Medical Decision Making - Data Points Laboratory Results: Laboratory Results 01/14/17 03:30 01/14/17 03:30 01/14/17 01/14/17 03:30 03:30 WBC REJ RBC REJ Hgb REJ Hct REJ MCV REJ MCH REJ MCHC REJ RDW REJ Plt Count REJ MPV REJ Neut % (Auto) REJ Lymph % (Auto) REJ [place] % (Auto) REJ Eos % (Auto) REJ Baso % (Auto) REJ Nucleat RBC Rel Count REJ Absolute Neuts (auto) REJ Absolute Lymphs (auto) REJ Absolute Monos (auto) REJ Absolute Eos (auto) REJ Absolute Basos (auto) REJ Absolute Nucleated RBC REJ Immature Gran % REJ Immature Gran # REJ Sodium 144 mEq/L mEq/L (134-144) Potassium 4.2 mEq/L mEq/L (3.5-5.2) Chloride 107 mEq/L mEq/L (97-110) Carbon Dioxide 19 mEq/l L mEq/l (22-31) Anion Gap 18 mEq/L H mEq/L (8-16) BUN 10 mg/dL mg/dL (7-23) Creatinine 0.8 mg/dL mg/dL (0.7-1.3) Estimated GFR > 60 Glucose 74 mg/dL mg/dL (70-100) Calcium 9.4 mg/dL mg/dL (8.5-10.4) Phenytoin < 3.0 mcg/mL L mcg/mL (10.0-20.0) Medications Given: Discontinued Medications Diazepam (Valium Injection) 10 mg IVP EDNOW ONE Stop: 01/14/17 03:14 Last Admin: 01/14/17 03:37 Dose: 10 mg Sodium Chloride (Ns) 1,000 mls @ 0 mls/hr IV EDNOW ONE; Wide Open PRN Reason: Protocol Stop: 01/14/17 03:18 Last Admin: 01/14/17 03:37 Dose: 1,000 mls Phenytoin Sodium 1,000 mg/ (Sodium Chloride) 120 mls @ 144 mls/hr IV ONCE ONE Stop: 01/14/17 04:49 Last Admin: 01/14/17 04:17 Dose: 120 mls Departure - Departure Disposition: Home, Routine, Self-Care Clinical Impression: Seizure disorder, Alcohol abuse, Noncompliance with medication regimen Condition: Good Instructions: Abuse of Alcohol (ED), Recurrent Seizures in Adults (ED) Additional Instructions: Read and follow provided instructions. Follow-up with your primary care physician in 1-2 days at [facility] for re -evaluation and refill of your Dilantin prescription.. Take medication as prescribed for your seizure disorder. Do not drink alcohol. Return to the emergency department for worsening symptoms or other serious concerns. Referrals: [facility],. [Clinic] - As per Instructions Prescriptions: Phenytoin Sodium Extended [Dilantin (*)] 100 mg PO TID #21 cap
[2017-01-14 03:53] LABS: ANION GAP 18 mEq/L (8-16); CALCIUM 9.4 mg/dL (8.5-10.4); CARBON DIOXIDE 19 mEq/l (22-31); CHLORIDE 107 mEq/L (97-110); CREATININE 0.8 mg/dL (0.7-1.3); GLOMERULAR FILTRATION RATE > 60; GLUCOSE 74 mg/dL (70-100); POTASSIUM 4.2 mEq/L (3.5-5.2); SODIUM 144 mEq/L (134-144)
[2017-01-14] MEDS ORDERED: PHENYTOIN SODIUM 1,000 MG in NS 100 ML IV ONE (04:00)
[2017-01-14 05:30] VITALS: BP 160/94; PULSE 91; RESP 18; O2SAT 98
== END 2017-01-14 05:32 | disposition home or self-care (01) ==
LOC: EDUNIT#
DX: G40.909 Epilepsy, unspecified, not intractable, without status epilepticus (principal); F10.10 Alcohol abuse, uncomplicated; I10 Essential (primary) hypertension; J44.9 Chronic obstructive pulmonary disease, unspecified; F17.200 Nicotine dependence, unspecified, uncomplicated; E86.9 Volume depletion, unspecified; Z91.14 Patient's other noncompliance with medication regimen
CPT/HCPCS: 96365

== ENCOUNTER 2017-01-18 10:08 | Emergency (ER) | payer OTHER, MEDICAID ==
[2017-01-18 10:16] VITALS: RESP 16; TEMP 97.3; O2SAT 96
[2017-01-18] MEDS ORDERED: NS 1,000 ML IV ONE (10:16)
[2017-01-18 10:25] LABS: % IMMATURE GRANULYOCYTES 0.2 % (0.0-1.1); ABSOLUTE IMMATURE GRANULOCYTES 0.02 10^3/uL (0.00-0.10); ADD DIFF? NO; ADD MORPH? NO; ADD SCAN? NO; ATYPICAL LYMPHOCYTE FLAG 10 (0-99); FRAGMENT RBC FLAG 20 (0-99); HEMATOCRIT 38.7 % (40.0-51.0); HEMOGLOBIN 12.1 g/dL (13.7-17.5); LEFT SHIFT FLG 0 (0-99); LIPEMIA HEMOLYSIS FLAG 80 (0-99); MEAN CELL HEMOGLOBIN 23.4 pg (27.9-34.1); MEAN CELL HEMOGLOBIN CONCENTR. 31.3 g/dL (32.4-36.7); MEAN PLATELET VOLUME 9.3 fL (8.7-11.7); PLATELET CLUMPS FLAG 70 (0-99); PLATELET COUNT 241 10^3/uL (150-400); RED BLOOD CELL COUNT 5.16 10^6/uL (4.40-6.38); RED CELL DISTRIBUTION WIDTH 19.8 % (11.5-15.2)
[2017-01-18 10:41] LABS: ANION GAP 18 mEq/L (8-16); CALCIUM 8.4 mg/dL (8.5-10.4); CARBON DIOXIDE 20 mEq/l (22-31); CHLORIDE 107 mEq/L (97-110); CREATININE 0.7 mg/dL (0.7-1.3); GLOMERULAR FILTRATION RATE > 60; GLUCOSE 135 mg/dL (70-100); POTASSIUM 3.6 mEq/L (3.5-5.2); SODIUM 145 mEq/L (134-144)
--- NOTE | 2017-01-18 10:59 | CPEKG ---
Heart Rate: 84 RR Interval: 714 P-R Interval: 156 QRSD Interval: 80 QT Interval: 372 QTC Interval: 440 P [place]: 40 QRS [place]: 53 T Wave [place]: 69 EKG Severity - NORMAL ECG - EKG Impression: SINUS RHYTHM Electronically Signed By: Renetta Do 18-Jan-2017 15:22:03
--- NOTE | 2017-01-18 11:59 | EDPHY ---
H & P Time Seen by Provider: 01/18/17 10:16 HPI/ROS: HPI Took too much Dilantin. 51-year-[facility] He is very familiar to our emergency department. Multiple visits for various complaints involving alcohol abuse and including seizures and noncompliance with seizure medications. He reports that he thinks he took too much of his Dilantin. Reports that he wanted to make sure he did not have a seizure and took at least 4-5 of his 100 mg Dilantin tablets 4-5 hours ago that I prescribed and filled for him during his last visit to the emergency department about a week ago. Denies being suicidal. He reports that he has had laryngitis. He also reports feeling very thirsty. He reports that he feels drowsy. He denies alcohol today. ROS: Constitutional: No fever, no chills. As above. Eyes: No discharge. No changes in vision. ENT: No sore throat. No nasal congestion or rhinorrhea. Respiratory: No cough. No shortness of breath. Cardiac: No chest pain, no palpitations. Gastrointestinal: No abdominal pain, no vomiting, no diarrhea. Genitourinary: No hematuria. No dysuria or increased frequency with urination. Musculoskeletal: No back pain. No neck pain. No myalgias or arthralgias. Skin: No rashes. Neurological: No headache. No focal weakness or altered sensation. Past medical history: Hypertension, depression, anxiety, seizure disorder, noncompliance with care plans and medications, chronic back pain, gastric bypass , COPD, alcohol abuse. Social history: Homeless. Smoker. Here by himself. As above. Physical Exam: General Appearance: Alert, no distress. This patient is responding to questions appropriately and in full sentences. Laryngitis a whispers when he talks to you. This patient appears well-hydrated and well-nourished. Eyes: Pupils equal and round no pallor or injection. No lid edema, erythema or injection. ENT, Mouth: Mucous membranes are dry. Mild and diffuse erythema involving the pharyngeal tissues. No edema or swelling. No asymmetry suggestive of abscess. No exudates. No stridor on auscultation of his neck. Respiratory: There are no retractions, lungs are clear to auscultation with good air movement bilaterally. Cardiovascular: Regular rate and rhythm. No murmur. Gastrointestinal: Abdomen is soft and nontender, no masses, bowel sounds normal. No focal tenderness at McBurney's point. No Pierre sign. Neurological: Motor sensory function is grossly intact. Cranial nerves are normal. Gait is normal. Skin: Warm and dry, no rashes. Musculoskeletal: Neck is supple and nontender. Extremities are symmetrical. All joints range without pain or impingement. Psychiatric: No agitation. No depression. Database: EKG: EKG time is 10:50 a.m.; EKG shows a narrow complex normal sinus rhythm with a ventricular rate of 84. The ND, QRS, QT intervals are within normal limits. There are no ST-T wave changes indicative of ischemic or injury pattern. No evidence of right heart strain. Interpreted by me. Imaging: Procedures: Emergency department course: Vital signs have been reviewed and are normal. He was given oral fluids as well as food while here. He is not suicidal. His Dilantin level is within therapeutic range. His blood work is unremarkable. He feels comfortable [facility] to the [facility] after all hydration and eating something in the emergency department. Follow-up through his [facility] primary care physician was discussed. Return to emergency depart conscious reviewed. All of his questions were answered. He was [facility] in [facility]. Differential Diagnosis: The differential diagnosis on this patient includes but is not limited to reported overdose on Dilantin. Suicidal ideation, seizure, CVA, serious bacterial infection unlikely. This represents a partial list of diagnoses considered. These considerations are based on history, physical exam, past history, reassessment and diagnostic testing. Smoking Status: Heavy smoker Constitutional: Initial Vital Signs Temperature (C) 36.3 C 01/18/17 10:08 Heart Rate 90 01/18/17 10:08 Respiratory Rate 16 01/18/17 10:08 Blood Pressure 139/84 H 01/18/17 10:08 O2 Sat (%) 96 01/18/17 10:08 O2 Delivery Mode Room Air Allergies/Adverse Reactions: gabapentin Allergy (Verified 01/14/17 03:14) bee stings Allergy (Severe, Uncoded 01/14/17 03:14) Anaphylaxis Home Medications: Medication Instructions Recorded Lisinopril/Hctz 20/12.5MG 1 ea PO DAILY 08/01/16 [Zestoretic/Prinzide 20/12.5MG (*)] Dilantin 12/05/16 Lisinopril/Hctz 20/12.5MG 1 ea PO DAILY #10 tab 12/05/16 [Zestoretic/Prinzide 20/12.5MG (*)] Phenytoin Sodium Extended 100 mg PO TID #21 cap 12/05/16 [Dilantin (*)] Phenytoin Sodium Extended 100 mg PO TID #21 cap 01/14/17 [Dilantin (*)] Medical Decision Making - Data Points Laboratory Results: Laboratory Results 01/18/17 10:10 01/18/17 10:10 01/18/17 01/18/17 10:10 10:10 WBC 9.23 10^3/uL 10^3/uL (3.80-9.50) RBC 5.16 10^6/uL 10^6/uL (4.40-6.38) Hgb 12.1 g/dL L g/dL (13.7-17.5) Hct 38.7 % L % (40.0-51.0) MCV 75.0 fL L fL (81.5-99.8) MCH 23.4 pg L pg (27.9-34.1) MCHC 31.3 g/dL L g/dL (32.4-36.7) RDW 19.8 % H % (11.5-15.2) Plt Count 241 10^3/uL 10^3/uL (150-400) MPV 9.3 fL fL (8.7-11.7) Neut % (Auto) 67.2 % % (39.3-74.2) Lymph % (Auto) 24.5 % % (15.0-45.0) [place] % (Auto) 7.2 % % (4.5-13.0) Eos % (Auto) 0.5 % L % (0.6-7.6) Baso % (Auto) 0.4 % % (0.3-1.7) Nucleat RBC Rel Count 0.0 % % (0.0-0.2) Absolute Neuts (auto) 6.20 10^3/uL 10^3/uL (1.70-6.50) Absolute Lymphs (auto) 2.26 10^3/uL 10^3/uL (1.00-3.00) Absolute Monos (auto) 0.66 10^3/uL 10^3/uL (0.30-0.80) Absolute Eos (auto) 0.05 10^3/uL 10^3/uL (0.03-0.40) Absolute Basos (auto) 0.04 10^3/uL 10^3/uL (0.02-0.10) Absolute Nucleated RBC 0.00 10^3/uL 10^3/uL (0-0.01) Immature Gran % 0.2 % % (0.0-1.1) Immature Gran # 0.02 10^3/uL 10^3/uL (0.00-0.10) Sodium 145 mEq/L H mEq/L (134-144) Potassium 3.6 mEq/L mEq/L (3.5-5.2) Chloride 107 mEq/L mEq/L (97-110) Carbon Dioxide 20 mEq/l L mEq/l (22-31) Anion Gap 18 mEq/L H mEq/L (8-16) BUN 11 mg/dL mg/dL (7-23) Creatinine 0.7 mg/dL mg/dL (0.7-1.3) Estimated GFR > 60 Glucose 135 mg/dL H mg/dL (70-100) Calcium 8.4 mg/dL L mg/dL (8.5-10.4) Phenytoin 14.2 mcg/mL mcg/mL (10.0-20.0) Medications Given: Discontinued Medications Chlordiazepoxide (Librium 25 Mg Prepack#6) 1 btl TAKEHOME EDNOW ONE Stop: 01/18/17 12:48 Last Admin: 01/18/17 12:58 Dose: Not Given Sodium Chloride (Ns) 1,000 mls @ 0 mls/hr IV EDNOW ONE; Wide Open PRN Reason: Protocol Stop: 01/18/17 10:17 Last Admin: 01/18/17 10:31 Dose: 1,000 mls Departure - Departure Disposition: Home, Routine, Self-Care Clinical Impression: Dilantin overdose, Alcohol abuse, Pharyngitis Condition: Good Instructions: Chlordiazepoxide (By mouth), Recurrent Seizures in Adults (ED) Additional Instructions: Read and follow provided instructions. Follow-up with your primary care physician at [facility] in 2-3 days for re -evaluation and further management of your seizures. Take medication as prescribed only. Return to the emergency department for worsening symptoms or other serious concerns. Referrals: Ni Bennett PA [Physician Finished Goods Planner] - As per Instructions [facility],. [Clinic] - As per Instructions
[2017-01-18 12:18] VITALS: BP 132/89; PULSE 95
[2017-01-18] MEDS ORDERED: CHLORDIAZEPOXIDE 25MG PREPK#6 BTL TAKEHOME ONE (12:47)
--- NOTE | 2017-01-18 13:13 | ASDISCHSUM ---
Discharge Information Plan Status:Homeless/[facility] Medically Cleared to Leave: Discharge Date:01/18/2017 12:59 PM CM D/C Disposition:Streets (Homeless) ADT D/C Disposition:Home, Routine, Self-Care Projected Discharge Date:01/18/2017 12:59 PM Transportation at D/C:None or Unknown Discharge Delay Reason: Follow-Up Date:01/18/2017 12:59 PM Discharge Slot: Final Diagnosis: Placement Information Patient Contact Information Contact Name:PALOMO Relationship: Address: Home Phone: Work Phone: City: Alternate Phone: State/Zip Code: Email: Financial Information Financial Class: Primary Plan Desc:MEDICARE OUTPATIENT Primary Plan Number:[id number] Secondary Plan Desc:MEDICAID HEALTH FIRST [place] OP Secondary Plan Number:[id number] Assessment Information [facility] CM Progress Note CM Note CM Note Notes: Patient presented to the ED after reportedly taking "9 days worth of Dilantin." When asked if patient took that amount of medication in order to hurt himself patient said "at the time yes but now I'm okay." Patient continues to deny SI throughout his ED visit. Patient is well known to this ED and has a history of alcoholism. Patient states he has been staying the [facility] and would like to return there. Patient asking for food and cab transport to the [facility]. Juice provided but due to patient still being intoxicated, with a breath ETOH of .200, this CM only offered to cab patient to [facility] with a pre-pack of Librium. Patient is reluctant but agreeable. This CM ordered pre-pack of Librium and was going to set up cab transport but patient left with all of his belongings. Patient's IV had been removed. ED RN and MD aware. This CM to contact [facility] (pt sees Ni Bennett) and [facility] (pt states he is followed by Danna). Date Signed: 01/18/2017 01:11 PM Electronically Signed By:Melisa Dixon RN Intervention Information
== END 2017-01-18 12:59 | disposition home or self-care (01) ==
LOC: EDUNIT#
DX: T42.0X1A Poisoning by hydantoin derivatives, accidental (unintentional), initial encounter (principal); F10.10 Alcohol abuse, uncomplicated; J02.9 Acute pharyngitis, unspecified; E86.9 Volume depletion, unspecified; I10 Essential (primary) hypertension; J44.9 Chronic obstructive pulmonary disease, unspecified; F17.200 Nicotine dependence, unspecified, uncomplicated

== ENCOUNTER 2017-01-19 02:00 | Emergency (ER) | payer OTHER, MEDICAID ==
[2017-01-19] MEDS ORDERED: NS 1,000 ML IV ONE ×2 (02:05→03:46)
[2017-01-19] MEDS ORDERED: LORazepam 2 MG/ML INJ IVP ONE ×3 (02:05→06:53)
[2017-01-19] MEDS ORDERED: ASPIRIN 81 MG CHEWABLE TAB PO ONE (02:05)
[2017-01-19] MEDS ORDERED: IPRATROPIUM/ALBUTEROL 3 ML DEYVIAL IH ONE (02:08)
--- NOTE | 2017-01-19 02:08 | EDPHY ---
H & P HPI/ROS: HPI CHIEF COMPLAINT: Shortness of breath, chest tightness across his chest, worse with cough HISTORY OF PRESENT ILLNESS: This patient very pleasant 51-year-old male, very familiar to myself, he is an alcoholic and drinks daily, he did drink earlier today he presents emergency room by EMS with shortness of breath and Chest tightness across his chest worse with cough, cant take a full breath. [facility] developed shortness of breath progressively worse over the evening tonight. He Additonally reports he has had a cough that is been productive in nature with green sputum. It has been going on for 10 days. He denies any fever. Additionally with shortness of breath this evening developed some chest tightness across his chest, worse with cough, cant take full breath. Nonradiating. Denies arm pain. Denies denies neck pain. Does feel anxious but Past Medical History: Alcoholism, daily alcohol use, hypertension, COPD, pneumonia, epilepsy Past Surgical History: Gastric bypass Social History: Daily alcohol use. Smokes tobacco daily. Denies other illicit drugs. Family History: Noncontrast. ROS REVIEW OF SYSTEMS: A comprehensive 10 point review of systems is otherwise negative aside from elements mentioned in the history of present illness. Exam Constitutional appears nontoxic triage nursing summary reviewed, vital signs reviewed, awake/alert. Eyes normal conjunctivae and sclera, EOMI, PERRLA. HENT normal inspection, atraumatic, moist mucus membranes, no epistaxis, neck supple/ no meningismus, no raccoon eyes. Respiratory decreased breath sounds bilaterally, normal breath sounds, no respiratory distress, no wheezing. Cardiovascular rate normal, regular rhythm, no murmur, no edema, distal pulses normal. Gastrointestinal soft, non-tender, no rebound, no guarding, normal bowel sounds, no distension, no pulsatile mass. Genitourinary no CVA tenderness. Musculoskeletal no midline vertebral tenderness, full range of motion, no calf swelling, no tenderness of extremities, no meningismus, good pulses, neurovascularly intact. Skin pink, warm, & dry, no rash, skin atraumatic. Neurologic awake, alert and oriented x 3, AAOx3, moves all 4 extremities equally, motor intact, sensory intact, CN II-XII intact, normal cerebellar, normal vision, normal speech. Psychiatric normal mood/affect. Heme/Lymph/Immune no lymphadenopathy. Differential diagnosis includes but is not limited to: ACS, atypical chest pain , pneumothorax, pneumonia, pulmonary embolism, aortic dissection, congestive heart failure, tumor, musculoskeletal pain, esophageal pain, GERD, peptic ulcer disease, pancreatitis Medical Decision Making: Plan for this patient full radiation monitor, IV establishment, IV fluid bolus, DuoNeb breathing treatment, chest x-ray, EKG, check troponin, rule out acute coronary syndrome. Rule out pneumonia. Re-evaluation: EKG interpretation by me on record in [employer] system. Impression time of EKG 2:07 a.m., sinus tachycardia rate of 109. Sinus arrhythmia present. I do not appreciate acute ischemia. This appears similar to previous EKG dated yesterday 01/18/2017. Q-waves noted V1 V2. Seen on old EKG as well. ED x-ray chest one view: Negative for pneumothorax or pneumonia. 0347: I did re-evaluate this patient. Feels much better after IV fluids and 1 mg IV Ativan. States he is breathing better. Additionally received a DuoNeb breathing treatment that helped him. He still states he feels anxious would like another mg of Ativan, will re-evaluate shortly. 0554: Re-evaluation resting comfortably no complaints denies chest pain or shortness of breath. EKG interpretation by me on record in [employer] system. Impression repeat EKG time a repeat EKG 5:36 a.m.. Sinus tachycardia rate of 112. I do not appreciate acute ischemic change. And this EKG is unchanged from his previous EKG 0653: Patient had a repeat troponins negative. He has been in the emergency room for 5 hr. He has not any ongoing chest pain or shortness of breath. Feels better after DuoNeb breathing treatment. His anxiety is much improved after multiple rounds of Ativan. He would like 1 more dose of Ativan and then be discharged. He specifically requesting to be discharged. He has no complaints at this time he feels better. Anxiety under control. Will prescribe albuterol inhaler, azithromycin. I recommend that he refrain from drinking alcohol serum alcohol level was elevated here. He had 2 troponins that are -2 EKGs that are nonischemic. He has no ongoing chest pain or shortness of breath. He feels comfortable. Return precautions given. Source: Patient, EMS - Personal History Tetanus Vaccine Date: 2015 - Medical/Surgical History Hx Asthma: No Hx Chronic Respiratory Disease: Yes Hx Diabetes: No Hx Cardiac Disease: No Hx Renal Disease: No Hx Cirrhosis: No Hx Alcoholism: Yes Hx HIV/AIDS: No Hx Splenectomy or Spleen Trauma: No Other PMH: PMH: htn, depression/anxiety,chronic back pain. [id number]-fusion, rolanda,left knee,gastric bypass, COPD, epilepsy, ETOH abuse - Social History Smoking Status: Heavy smoker Constitutional: Initial Vital Signs Temperature (C) 36.7 C 01/19/17 02:10 Heart Rate 107 H 01/19/17 02:10 Respiratory Rate 22 H 01/19/17 02:10 Blood Pressure 165/116 H 01/19/17 02:10 O2 Sat (%) 100 01/19/17 02:10 O2 Delivery Mode Room Air Allergies/Adverse Reactions: gabapentin Allergy (Verified 01/19/17 02:12) bee stings Allergy (Severe, Uncoded 01/19/17 02:12) Anaphylaxis Home Medications: Medication Instructions Recorded Lisinopril/Hctz 20/12.5MG 1 ea PO DAILY 08/01/16 [Zestoretic/Prinzide 20/12.5MG (*)] Dilantin 12/05/16 Lisinopril/Hctz 20/12.5MG 1 ea PO DAILY #10 tab 12/05/16 [Zestoretic/Prinzide 20/12.5MG (*)] Phenytoin Sodium Extended 100 mg PO TID #21 cap 12/05/16 [Dilantin (*)] Phenytoin Sodium Extended 100 mg PO TID #21 cap 01/14/17 [Dilantin (*)] AZITHROMYCIN [Z-PACK] 250 mg PO DAILY #6 tab 01/19/17 Albuterol Hfa Anes Only 01/19/17 Albuterol [Proventil Inhaler HFA 1 - 2 puffs IH Q4H #1 mdi 01/19/17 (*)] Medical Decision Making - Data Points Laboratory Results: Laboratory Results 01/19/17 02:20 01/19/17 02:20 01/19/17 01/19/17 01/19/17 05:50 03:55 02:20 WBC RBC Hgb Hct MCV MCH MCHC RDW Plt Count MPV Neut % (Auto) Lymph % (Auto) [place] % (Auto) Eos % (Auto) Baso % (Auto) Nucleat RBC Rel Count Absolute Neuts (auto) Absolute Lymphs (auto) Absolute Monos (auto) Absolute Eos (auto) Absolute Basos (auto) Absolute Nucleated RBC Immature Gran % Immature Gran # PT INR APTT Sodium 146 mEq/L H mEq/L (134-144) Potassium 3.9 mEq/L mEq/L (3.5-5.2) Chloride 108 mEq/L mEq/L (97-110) Carbon Dioxide 20 mEq/l L mEq/l (22-31) Anion Gap 18 mEq/L H mEq/L (8-16) BUN 11 mg/dL mg/dL (7-23) Creatinine 0.7 mg/dL mg/dL (0.7-1.3) Estimated GFR > 60 Glucose 85 mg/dL mg/dL (70-100) Calcium 8.6 mg/dL mg/dL (8.5-10.4) Magnesium 1.8 mg/dL mg/dL (1.6-2.3) Total Bilirubin 0.6 mg/dL mg/dL (0.1-1.4) Conjugated Bilirubin 0.3 mg/dL mg/dL (0.0-0.5) Unconjugated Bilirubin 0.3 mg/dL mg/dL (0.0-1.1) AST 26 IU/L IU/L (17-59) ALT 33 IU/L IU/L (21-72) Alkaline Phosphatase 203 IU/L H IU/L (38-126) Troponin I < 0.012 ng/mL ng/mL 0.020 ng/mL ng/mL (0.000-0.034) (0.000-0.034) NT-Pro-B Natriuret Pep 21 pg/mL pg/mL (0-125) Total Protein 7.0 g/dL g/dL (6.3-8.2) Albumin 4.0 g/dL g/dL (3.5-5.0) Lipase 151 IU/L IU/L (23-300) Urine Opiates Screen NEGATIVE (NEGATIVE) Urine Barbiturates NON-NEGATIVE H (NEGATIVE) Ur Phencyclidine Scrn NEGATIVE (NEGATIVE) Ur Amphetamine Screen NEGATIVE (NEGATIVE) U Benzodiazepines Scrn NON-NEGATIVE H (NEGATIVE) Urine Cocaine Screen NEGATIVE (NEGATIVE) U Marijuana (THC) Screen NEGATIVE (NEGATIVE) Ethyl Alcohol 172 mg/dL H mg/dL (0-10) 01/19/17 01/19/17 02:20 02:20 WBC 7.23 10^3/uL 10^3/uL (3.80-9.50) RBC 5.12 10^6/uL 10^6/uL (4.40-6.38) Hgb 11.9 g/dL L g/dL (13.7-17.5) Hct 38.0 % L % (40.0-51.0) MCV 74.2 fL L fL (81.5-99.8) MCH 23.2 pg L pg (27.9-34.1) MCHC 31.3 g/dL L g/dL (32.4-36.7) RDW 20.0 % H % (11.5-15.2) Plt Count 217 10^3/uL 10^3/uL (150-400) MPV 9.7 fL fL (8.7-11.7) Neut % (Auto) 59.7 % % (39.3-74.2) Lymph % (Auto) 31.8 % % (15.0-45.0) Queens % (Auto) 7.6 % % (4.5-13.0) Eos % (Auto) 0.4 % L % (0.6-7.6) Baso % (Auto) 0.4 % % (0.3-1.7) Nucleat RBC Rel Count 0.0 % % (0.0-0.2) Absolute Neuts (auto) 4.31 10^3/uL 10^3/uL (1.70-6.50) Absolute Lymphs (auto) 2.30 10^3/uL 10^3/uL (1.00-3.00) Absolute Monos (auto) 0.55 10^3/uL 10^3/uL (0.30-0.80) Absolute Eos (auto) 0.03 10^3/uL 10^3/uL (0.03-0.40) Absolute Basos (auto) 0.03 10^3/uL 10^3/uL (0.02-0.10) Absolute Nucleated RBC 0.00 10^3/uL 10^3/uL (0-0.01) Immature Gran % 0.1 % % (0.0-1.1) Immature Gran # 0.01 10^3/uL 10^3/uL (0.00-0.10) PT 13.4 SEC SEC (12.0-15.0) INR 1.00 (0.83-1.16) APTT 26.3 SEC SEC (23.0-38.0) Sodium Potassium Chloride Carbon Dioxide Anion Gap BUN Creatinine Estimated GFR Glucose Calcium Magnesium Total Bilirubin Conjugated Bilirubin Unconjugated Bilirubin AST ALT Alkaline Phosphatase Troponin I NT-Pro-B Natriuret Pep Total Protein Albumin Lipase Urine Opiates Screen Urine Barbiturates Ur Phencyclidine Scrn Ur Amphetamine Screen U Benzodiazepines Scrn Urine Cocaine Screen U Marijuana (THC) Screen Ethyl Alcohol Medications Given: Discontinued Medications Albuterol/Ipratropium (Duoneb) 3 ml IH EDNOW ONE Stop: 01/19/17 02:09 Last Admin: 01/19/17 02:20 Dose: 3 ml Aspirin (Aspirin) 324 mg PO EDNOW ONE Stop: 01/19/17 02:06 Last Admin: 01/19/17 02:20 Dose: 324 mg Sodium Chloride (Ns) 1,000 mls @ 0 mls/hr IV EDNOW ONE; Wide Open PRN Reason: Protocol Stop: 01/19/17 02:06 Last Admin: 01/19/17 02:30 Dose: 1,000 mls Sodium Chloride (Ns) 1,000 mls @ 0 mls/hr IV ONCE ONE PRN Reason: Wide Open Stop: 01/19/17 03:47 Last Admin: 01/19/17 03:51 Dose: 1,000 mls Lorazepam (Ativan Injection) 1 mg IVP EDNOW ONE Stop: 01/19/17 02:06 Last Admin: 01/19/17 02:30 Dose: 1 mg Lorazepam (Ativan Injection) 1 mg IVP EDNOW ONE Stop: 01/19/17 03:47 Last Admin: 01/19/17 03:52 Dose: 1 mg Departure - Departure Disposition: Home, Routine, Self-Care Clinical Impression: Anxiety COPD (chronic obstructive pulmonary disease) Qualifiers: COPD type: unspecified COPD Qualified Code(s): J44.9 - Chronic obstructive pulmonary disease, unspecified Condition: Good Instructions: Anxiety (ED), COPD (Chronic Obstructive Pulmonary Disease) (ED) Additional Instructions: 1. Return emergency room if develops any worsening symptoms questions or concerns. Referrals: Patient,NotPresent [Primary Care Provider] - As per Instructions Prescriptions: Albuterol [Proventil Inhaler HFA (*)] 1 - 2 puffs IH Q4H #1 mdi AZITHROMYCIN [Z-PACK] 250 mg PO DAILY #6 tab
[2017-01-19 02:11] VITALS: TEMP 98.1
--- NOTE | 2017-01-19 02:32 | CPEKG ---
Heart Rate: 109 RR Interval: 550 P-R Interval: 128 QRSD Interval: 66 QT Interval: 328 QTC Interval: 442 P Aurora: 48 QRS Aurora: 64 T Wave Aurora: 65 EKG Severity - ABNORMAL ECG - EKG Impression: SINUS TACHYCARDIA EKG Impression: ATRIAL PREMATURE COMPLEX EKG Impression: CONSIDER ANTEROSEPTAL INFARCT Electronically Signed By: Kurt Oliver 19-Jan-2017 15:16:30
[2017-01-19 02:36] LABS: % IMMATURE GRANULYOCYTES 0.1 % (0.0-1.1); ABSOLUTE IMMATURE GRANULOCYTES 0.01 10^3/uL (0.00-0.10); ADD DIFF? NO; ADD MORPH? NO; ADD SCAN? NO; ATYPICAL LYMPHOCYTE FLAG 0 (0-99); FRAGMENT RBC FLAG 20 (0-99); HEMOGLOBIN 11.9 g/dL (13.7-17.5); LEFT SHIFT FLG 0 (0-99); LIPEMIA HEMOLYSIS FLAG 80 (0-99); MEAN CELL HEMOGLOBIN 23.2 pg (27.9-34.1); MEAN CELL HEMOGLOBIN CONCENTR. 31.3 g/dL (32.4-36.7); MEAN CELL VOLUME 74.2 fL (81.5-99.8); MEAN PLATELET VOLUME 9.7 fL (8.7-11.7); PLATELET CLUMPS FLAG 0 (0-99); PLATELET COUNT 217 10^3/uL (150-400); RED BLOOD CELL COUNT 5.12 10^6/uL (4.40-6.38)
[2017-01-19 02:49] LABS: APTT 26.3 SEC (23.0-38.0); PROTIME(PATIENT) 13.4 SEC (12.0-15.0)
[2017-01-19 02:50] LABS: ALANINE AMINOTRANSFERASE 33 IU/L (21-72); ALKALINE PHOSPHATASE 203 IU/L (38-126); ANION GAP 18 mEq/L (8-16); ASPARTATE AMINOTRANSFERASE 26 IU/L (17-59); BILIRUBIN,TOTAL 0.6 mg/dL (0.1-1.4); BILIRUBIN-CONJUGATED 0.3 mg/dL (0.0-0.5); BILIRUBIN-UNCONJUGATED 0.3 mg/dL (0.0-1.1); CALCIUM 8.6 mg/dL (8.5-10.4); CARBON DIOXIDE 20 mEq/l (22-31); CHLORIDE 108 mEq/L (97-110); CREATININE 0.7 mg/dL (0.7-1.3); ETHANOL SERUM 172 mg/dL (0-10); GLOMERULAR FILTRATION RATE > 60; GLUCOSE 85 mg/dL (70-100); MAGNESIUM 1.8 mg/dL (1.6-2.3); POTASSIUM 3.9 mEq/L (3.5-5.2); SODIUM 146 mEq/L (134-144)
[2017-01-19 05:31] VITALS: RESP 16; O2SAT 96
--- NOTE | 2017-01-19 05:40 | CPEKG ---
Heart Rate: 112 RR Interval: 536 P-R Interval: 128 QRSD Interval: 68 QT Interval: 324 QTC Interval: 443 P Franklin: 33 QRS Franklin: 49 T Wave Franklin: 74 EKG Severity - BORDERLINE ECG - EKG Impression: SINUS TACHYCARDIA EKG Impression: LOW VOLTAGE THROUGHOUT Electronically Signed By: Kurt Oliver 19-Jan-2017 15:16:30
[2017-01-19 07:04] VITALS: BP 164/89; PULSE 103
== END 2017-01-19 07:04 | disposition home or self-care (01) ==
LOC: EDUNIT#
DX: J44.9 Chronic obstructive pulmonary disease, unspecified (principal); F41.9 Anxiety disorder, unspecified; I10 Essential (primary) hypertension; F17.200 Nicotine dependence, unspecified, uncomplicated; E86.9 Volume depletion, unspecified
CPT/HCPCS: 71010; 93005; 96361; 96374; 96376; 99285; J2060; 80305; G0480

== ENCOUNTER 2017-01-22 12:46 | Emergency (ER) | payer OTHER, MEDICAID ==
[2017-01-22 12:59] VITALS: TEMP 96.8
--- NOTE | 2017-01-22 14:38 | EDPHY ---
HPI/HX/ROS/PE/MDM Narrative: CHIEF COMPLAINT: Fall, eyebrow laceration. HISTORY OF PRESENT ILLNESS: The patient is a 51-year-old male who is well known to this emergency department secondary to multiple visits related to alcohol intoxication and seizure disorder. This is his 52nd visit this year. [facility] after he sustained a laceration to his left eyebrow following a fall earlier today. He believes he may have lost consciousness. Currently, he endorses neck pain and back pain. No fever, chills , chest pain, shortness of breath, palpitations, vomiting, diarrhea, urinary complaints, headache, lightheadedness. REVIEW OF SYSTEMS: Aside from elements discussed in the HPI, a comprehensive 10-point review of systems was reviewed and is negative. PAST MEDICAL HISTORY: Includes alcoholism, history of seizure. SOCIAL HISTORY: Homeless. Admits to ongoing alcohol abuse. Smoker. VITAL SIGNS: Reviewed by me GENERAL: Well-developed, well-nourished, smells of alcohol. Slurred speech but cooperative. No respiratory distress. HEENT: Laceration to left eyebrow. Eyes: No icterus, no injection. Mouth: moist mucous membranes. No erythema or lesions. Neck: In cervical collar. No tenderness on exam. LUNGS: Bilateral diffuse wheezes. CARDIAC: Regular rate and rhythm, no rubs, murmurs or gallops. ABDOMEN: Soft, nontender, nondistended, bowel sounds normal. BACK: No CVA tenderness. EXTREMITIES: No trauma. No edema. Range of motion is normal throughout. NEURO: Alert and oriented, grossly nonfocal. SKIN: Warm and dry, no rash. PSYCHIATRIC: Normal mentation, no agitation. Portions of this note were transcribed by a medical billing clerk. I personally performed a history, physical exam, medical decision making, and confirmed accuracy of information the transcribed note. (Ashley Catherine) ED Course: I was asked by Dr. Ashley Catherine repair left facial laceration. Laceration repair. Verbal consent was obtained from the patient. The 2.5 cm laceration on the left cheek just below left eye was anesthetized using 1% lidocaine with epinephrine. The wound was irrigated with saline, draped and explored to its base with a gloved finger. There were no deep structures involved. The wound was repaired with 5 0 Prolene, 6 sutures. The wound repair was simple. The procedure was performed by myself. (Elda Rey) 51 y.o male presents with left eyebrow laceration secondary to a fall shortly prior to arrival. He complains of neck pain. No midline cervical spine tenderness on exam. Plan for CT head and neck, laceration repair. Patient also complains of lower back pain and requests medication. Plan to offer ibuprofen for pain relief. Plan for labs including EtOH level. 15:[address] Waldrop, radiologist. CT head and cervical spine for acute processes. EtOH 560. Laceration repair performed by MADAY Nath. See procedure note. Plan to [facility] to the [facility] in good condition. (Ashley Catherine) General Time Seen by Provider: 01/22/17 14:34 Initial Vital Signs: Initial Vital Signs Temperature (C) 36 C 01/22/17 12:57 Heart Rate 86 01/22/17 12:57 Respiratory Rate 16 01/22/17 12:57 Blood Pressure 146/94 H 01/22/17 12:57 O2 Sat (%) 97 01/22/17 12:57 O2 Delivery Mode Room Air O2 (L/minute) 2 Allergies/Adverse Reactions: gabapentin Allergy (Verified 01/19/17 02:12) bee stings Allergy (Severe, Uncoded 01/19/17 02:12) Anaphylaxis Home Medications: Medication Instructions Recorded Lisinopril/Hctz 20/12.5MG 1 ea PO DAILY 08/01/16 [Zestoretic/Prinzide 20/12.5MG (*)] Lisinopril/Hctz 20/12.5MG 1 ea PO DAILY #10 tab 12/05/16 [Zestoretic/Prinzide 20/12.5MG (*)] Phenytoin Sodium Extended 100 mg PO TID #21 cap 12/05/16 [Dilantin (*)] Phenytoin Sodium Extended 100 mg PO TID #21 cap 01/14/17 [Dilantin (*)] Albuterol [Proventil Inhaler HFA 1 - 2 puffs IH Q4H #1 mdi 01/19/17 (*)] Doxycycline Hyclate 100 mg PO BID #20 tablet 01/23/17 predniSONE 1 tab PO DAILY #15 tab 01/23/17 Departure - Departure Disposition: Home, Routine, Self-Care Clinical Impression: Alcohol intoxication Qualifiers: Complication of substance-induced condition: uncomplicated Qualified Code(s): F10.920 - Alcohol use, unspecified with intoxication, uncomplicated Laceration of eyebrow, left Qualifiers: Encounter type: initial encounter Qualified Code(s): S01.112A - Laceration without foreign body of left eyelid and periocular area, initial encounter Condition: Good Instructions: Alcohol Intoxication (ED), Facial Laceration (ED) Additional Instructions: 1. Proceed to the [facility] for assistance in alcohol detoxification. 2. Return to the emergency department for fever, severe headache, chest pain, shortness of breath, seizure, or other worsening of condition. Wound Care Follow-Up: Removal of sutures in 7 days. Suture removal is complimentary in uncomplicated cases. Infection or abnormal findings would require reevaluation by the MD. In that case, you may be billed. Referrals: [facility],. [Clinic] - As per Instructions [facility] Detox 24 Hours [Outside] - As per Instructions Report Scribed for: Ashley Catherine Report Scribed by: Maggie Irene Date of Report: 01/22/17 Time of Report: 15:29
[2017-01-22 14:59] LABS: ETHANOL SERUM 560 mg/dL (0-10)
[2017-01-22 17:37] VITALS: BP 135/93; PULSE 88; RESP 18; O2SAT 97
== END 2017-01-22 17:37 | disposition home or self-care (01) ==
LOC: EDUNIT#
PROC: 0HQ1XZZ Repair Face Skin, External Approach (ICD-10-PCS; principal; 2017-01-22)
DX: S01.112A Laceration without foreign body of left eyelid and periocular area, initial encounter (principal); F10.920 Alcohol use, unspecified with intoxication, uncomplicated; F17.200 Nicotine dependence, unspecified, uncomplicated; W18.39XA Other fall on same level, initial encounter; Y92.481 Parking lot as the place of occurrence of the external cause
CPT/HCPCS: G0480

== ENCOUNTER 2017-01-23 21:17 | Emergency (ER) | payer OTHER, MEDICAID ==
[~2017-01-23 21:17] MED LIST changes: +DOXYCYCLINE HYCLATE 100 MG CAP/TAB PO SCH; -PHENYTOIN SODIUM EXTENDED 100 MG CAP PO SCH; +predniSONE 20 MG TAB PO SCH
[2017-01-23] MEDS ORDERED: IPRATROPIUM/ALBUTEROL 3 ML DEYVIAL IH ONE (21:27)
[2017-01-23] MEDS ORDERED: LORazepam 2 MG/ML INJ IVP ONE ×3 (21:35→23:14)
[2017-01-23] MEDS ORDERED: methylPREDNISolone SOD SUCC 125 MG/2 ML VIAL IVP ONE (21:35)
[2017-01-23] MEDS ORDERED: NS 1,000 ML IV ONE (21:35)
--- NOTE | 2017-01-23 21:36 | EDPHY ---
H & P Time Seen by Provider: 01/23/17 21:24 HPI/ROS: CHIEF COMPLAINT: Difficulty breathing HISTORY OF PRESENT ILLNESS: This patient is a 51 y/o male with history of COPD, alcohol abuse, and seizures well known to this emergency department complaining of difficulty breathing and chest pain onset around 8:00pm this evening. He endorses productive cough for the past week with thick mucous. He complains of general malaise and chest pain as well. His chest discomfort is alternately dull or sharp, worsens with coughing and began a couple hours prior to arrival. The patient endorses current daily tobacco use, but states he is trying to quit. He denies fever, rhinorrhea, vomiting, or diarrhea. He did receive a flu vaccination this year. His last drink was this morning. REVIEW OF SYSTEMS: A 10 point review of systems was performed and is negative with the exception of the elements mentioned in the history of present illness. Past Medical/Surgical History: 1. Alcoholism 2. History of seizure 3. COPD Social History: Homeless. Heavy daily alcohol and tobacco use. Smoking Status: Heavy smoker Physical Exam: General Appearance: Alert, shaky, speaking in a whisper, resting tremor Eyes: Pupils equal and round, no conjunctival pallor or injection ENT, Mouth: Mucous membranes moist Neck: Normal inspection Respiratory: Tachypnea, diffuse expiratory wheezes. Cardiovascular: Regular tachycardia Gastrointestinal: Abdomen is soft and non-tender Neurological: A&O, nonfocal, normal gait Skin: Warm and dry, no rash Extremities: Nontender, no pedal edema Psychiatric: Mood and affect normal Constitutional: Initial Vital Signs Temperature (C) 37 C 01/23/17 21:25 Heart Rate 120 H 01/23/17 21:25 Respiratory Rate 24 H 01/23/17 21:25 Blood Pressure 163/101 H 01/23/17 21:25 O2 Sat (%) 97 01/23/17 21:25 O2 Delivery Mode Room Air Allergies/Adverse Reactions: gabapentin Allergy (Verified 01/19/17 02:12) bee stings Allergy (Severe, Uncoded 01/19/17 02:12) Anaphylaxis Home Medications: Medication Instructions Recorded Lisinopril/Hctz 20/12.5MG 1 ea PO DAILY 08/01/16 [Zestoretic/Prinzide 20/12.5MG (*)] Lisinopril/Hctz 20/12.5MG 1 ea PO DAILY #10 tab 12/05/16 [Zestoretic/Prinzide 20/12.5MG (*)] Phenytoin Sodium Extended 100 mg PO TID #21 cap 12/05/16 [Dilantin (*)] Phenytoin Sodium Extended 100 mg PO TID #21 cap 01/14/17 [Dilantin (*)] Albuterol [Proventil Inhaler HFA 1 - 2 puffs IH Q4H #1 mdi 01/19/17 (*)] Doxycycline Hyclate 100 mg PO BID #20 tablet 01/23/17 predniSONE 1 tab PO DAILY #15 tab 01/23/17 Medical Decision Making ED Course/Re-evaluation: This patient presents with shortness of breath, tachycardia and a productive cough. Symptoms likely secondary to alcohol withdrawal combined with acute bronchitis versus pneumonia. Solu-Medrol 125 mg IV and a DuoNeb given. Ativan 1 mg IV given. 10:20 p.m.-feels better after IV Ativan and a DuoNeb. Heart rate 105, Chest- diffuse expiratory wheezing, oxygen saturation 93% on room air. Repeat dose of Ativan 1 mg IV given. Chest x-ray results discussed with the patient. No prior history of pneumonia. I feel that he is safe and stable for discharge home. He states that he will take his antibiotics as prescribed and hopefully will be able to do so. The antibiotics were dispensed. Plan to d/c back to the [facility] in good condition with prescription for Doxycycline and Prednisone. He will receive Librium as well for withdrawal symptoms. F/u and return precautions discussed. He is comfortable with this plan. Differential Diagnosis: Differential diagnosis includes though is not limited to acute bronchitis, pulmonary edema, pneumothorax, acute coronary syndrome - Data Points Laboratory Results: Laboratory Results 01/23/17 21:50 01/23/17 21:50 Medications Given: Discontinued Medications Albuterol (Proventil Neb) 3 ml IH EDNOW ONE Stop: 01/23/17 22:38 Last Admin: 01/23/17 22:54 Dose: 3 ml Albuterol/Ipratropium (Duoneb) 3 ml IH EDNOW ONE Stop: 01/23/17 21:28 Last Admin: 01/23/17 21:35 Dose: 3 ml Chlordiazepoxide (Librium 25 Mg Prepack#6) 1 btl TAKEHOME EDNOW ONE Stop: 01/23/17 22:22 Last Admin: 01/23/17 22:32 Dose: 1 btl Doxycycline Hyclate (Doxycycline Hyclate) 100 mg PO EDNOW ONE PRN Reason: Protocol Stop: 01/23/17 22:38 Last Admin: 01/23/17 22:53 Dose: 100 mg Sodium Chloride (Ns) 1,000 mls @ 0 mls/hr IV ONCE ONE; Wide Open PRN Reason: Protocol Stop: 01/23/17 21:36 Last Admin: 01/23/17 21:42 Dose: Not Given Lorazepam (Ativan Injection) 1 mg IVP EDNOW ONE Stop: 01/23/17 21:36 Last Admin: 01/23/17 21:41 Dose: 1 mg Lorazepam (Ativan Injection) 1 mg IVP EDNOW ONE Stop: 01/23/17 22:18 Last Admin: 01/23/17 22:32 Dose: 1 mg Lorazepam (Ativan Injection) 1 mg IVP EDNOW ONE Stop: 01/23/17 23:15 Last Admin: 01/23/17 23:22 Dose: 1 mg Methylprednisolone Sodium Succinate (Solu-Medrol) 125 mg IVP EDNOW ONE Stop: 01/23/17 21:36 Last Admin: 01/23/17 21:41 Dose: 125 mg Departure - Departure Disposition: Home, Routine, Self-Care Clinical Impression: Alcohol withdrawal Qualifiers: Complication of substance-induced condition: uncomplicated Qualified Code(s): F10.230 - Alcohol dependence with withdrawal, uncomplicated Pneumonia Qualifiers: Pneumonia type: due to unspecified organism Laterality: left Lung location: lower lobe of lung Qualified Code(s): J18.1 - Lobar pneumonia, unspecified organism Condition: Good Instructions: Chlordiazepoxide/Clidinium (By mouth), Doxycycline (By mouth), Prednisone (By mouth), Bacterial Pneumonia (ED), Alcohol Withdrawal (ED) Additional Instructions: 1. Proceed to the [facility] for assistance in alcohol recovery. Follow up with the [facility] for further evaluation of your bronchitis. 2. Take Doxycycline as prescribed. It is important to finish your entire course of antibiotics even if you are feeling better. 3. Take Prednisone as prescribed. 4. Take Librium as prescribed as needed for alcohol withdrawal. 5. Return to the emergency department for fever, severe headache, worsening chest pain or shortness of breath, seizure, or other worsening of condition. Referrals: [facility]ox 24 Hours [Outside] - As per Instructions [facility],. [Clinic] - As per Instructions Prescriptions: Doxycycline Hyclate 100 mg PO BID #20 tablet predniSONE 1 tab PO DAILY #15 tab Report Scribed for: Afua Cano Report Scribed by: Maggie Irene Date of Report: 01/23/17 Time of Report: 21:36 Physician Review and Approval Statement: 01/23/17 21:36 Portions of this note were transcribed by a claim review medical director. I personally performed a history, physical exam, medical decision making, and confirmed accuracy of information the transcribed note.
--- NOTE | 2017-01-23 21:39 | CPEKG ---
Heart Rate: 113 RR Interval: 531 P-R Interval: 124 QRSD Interval: 72 QT Interval: 320 QTC Interval: 439 P Alice: 37 QRS Alice: 37 T Wave Alice: 52 EKG Severity - OTHERWISE NORMAL ECG - EKG Impression: SINUS TACHYCARDIA Electronically Signed By: Afua Cano 23-Jan-2017 22:59:03
[2017-01-23 21:58] LABS: % IMMATURE GRANULYOCYTES 0.3 % (0.0-1.1); ABSOLUTE IMMATURE GRANULOCYTES 0.02 10^3/uL (0.00-0.10); ADD DIFF? NO; ADD MORPH? YES; ADD SCAN? NO; ATYPICAL LYMPHOCYTE FLAG 10 (0-99); FRAGMENT RBC FLAG 20 (0-99); HEMATOCRIT 36.8 % (40.0-51.0); HEMOGLOBIN 11.6 g/dL (13.7-17.5); LEFT SHIFT FLG 0 (0-99); LIPEMIA HEMOLYSIS FLAG 80 (0-99); MEAN CELL HEMOGLOBIN 23.3 pg (27.9-34.1); MEAN CELL HEMOGLOBIN CONCENTR. 31.5 g/dL (32.4-36.7); MEAN PLATELET VOLUME 9.9 fL (8.7-11.7); PLATELET CLUMPS FLAG 10 (0-99); PLATELET COUNT 162 10^3/uL (150-400); RED BLOOD CELL COUNT 4.97 10^6/uL (4.40-6.38)
[2017-01-23] MEDS ORDERED: CHLORDIAZEPOXIDE 25MG PREPK#6 BTL TAKEHOME ONE (22:21)
[2017-01-23 22:29] LABS: ANION GAP 17 mEq/L (8-16); CALCIUM 8.3 mg/dL (8.5-10.4); CARBON DIOXIDE 21 mEq/l (22-31); CHLORIDE 104 mEq/L (97-110); CREATININE 0.7 mg/dL (0.7-1.3); GLOMERULAR FILTRATION RATE > 60; GLUCOSE 97 mg/dL (70-100); POTASSIUM 3.8 mEq/L (3.5-5.2); SODIUM 142 mEq/L (134-144)
[2017-01-23 22:33] LABS: HYPOCHROMIA 1+; MACROCYTES 1+; MICROCYTES 2+; PLATELET ESTIMATE ADEQUATE (ADEQ)
[2017-01-23] MEDS ORDERED: ALBUTEROL 3 ML DEYVIAL IH ONE (22:37)
[2017-01-23] MEDS ORDERED: DOXYCYCLINE HYCLATE 100 MG CAP/TAB PO ONE (22:37)
[2017-01-23 23:30] VITALS: BP 151/98; PULSE 115; RESP 18; TEMP 98.8; O2SAT 95
[2017-01-24] MEDS ORDERED: predniSONE 20 MG TAB PO SCH (09:00)
== END 2017-01-24 00:15 | disposition home or self-care (01) ==
LOC: EDUNIT#
DX: J18.9 Pneumonia, unspecified organism (principal); F10.230 Alcohol dependence with withdrawal, uncomplicated; J44.9 Chronic obstructive pulmonary disease, unspecified; F17.200 Nicotine dependence, unspecified, uncomplicated
CPT/HCPCS: 71020; 93005; 96374; 96375; 96376; 99285; J2060; J2930; J7512

== ENCOUNTER 2017-01-25 23:58 | Emergency (ER) | payer OTHER, MEDICAID ==
[2017-01-26 00:04] VITALS: TEMP 98.2
--- NOTE | 2017-01-26 00:11 | EDPHY ---
H & P Stated Complaint: ETOH Time Seen by Provider: 01/25/17 23:59 HPI/ROS: HPI The patient presents with alcohol intoxication from [employer]. He denies any complaints but was unable to walk.. REVIEW OF SYSTEMS Constitutional: No fever, no chills. Eyes: No discharge. ENT: No sore throat. Cardiovascular: No chest pain, no palpitations. Respiratory: No cough, no shortness of breath. Gastrointestinal: No abdominal pain, no vomiting. Genitourinary: No hematuria. Musculoskeletal: No back pain. Skin: No rashes. Neurological: No headache. PMHx: Chronic alcohol abuse Soc Hx: Chronic alcohol abuse, homelessness PHYSICAL General Appearance: Obviously intoxicated in no acute distress Eyes: Pupils equal and round no pallor or injection ENT, Mouth: Mucous membranes moist Respiratory: There are no retractions, lungs are clear to auscultation Cardiovascular: Regular rate and rhythm Gastrointestinal: Abdomen is soft and non-tender, no masses, bowel sounds normal Neurological: A&O, moves all extremities Skin: Warm and dry, no rashes Musculoskeletal: Neck is supple non tender Extremities: symmetrical, full range of motion Psychiatric: Patient is oriented X 3, there is no agitation Source: Patient, EMS Exam Limitations: Intoxication - Personal History Current Tetanus/Diphtheria Vaccine: Yes Tetanus Vaccine Date: 2015 - Medical/Surgical History Hx Asthma: No Hx Chronic Respiratory Disease: Yes Hx Diabetes: No Hx Cardiac Disease: No Hx Renal Disease: No Hx Cirrhosis: No Hx Alcoholism: Yes Hx HIV/AIDS: No Hx Splenectomy or Spleen Trauma: No Other PMH: PMH: htn, depression/anxiety,chronic back pain. [id number]-fusion, rolanda,left knee,gastric bypass, COPD, epilepsy, ETOH abuse - Social History Smoking Status: Heavy smoker Constitutional: Initial Vital Signs Temperature (C) 36.8 C 01/26/17 00:02 Heart Rate 97 01/26/17 00:02 Respiratory Rate 18 01/26/17 00:02 Blood Pressure 129/87 H 01/26/17 00:02 O2 Sat (%) 97 01/26/17 00:02 O2 Delivery Mode Room Air Allergies/Adverse Reactions: gabapentin Allergy (Verified 01/19/17 02:12) bee stings Allergy (Severe, Uncoded 01/19/17 02:12) Anaphylaxis Home Medications: Medication Instructions Recorded Lisinopril/Hctz 20/12.5MG 1 ea PO DAILY 08/01/16 [Zestoretic/Prinzide 20/12.5MG (*)] Lisinopril/Hctz 20/12.5MG 1 ea PO DAILY #10 tab 12/05/16 [Zestoretic/Prinzide 20/12.5MG (*)] Phenytoin Sodium Extended 100 mg PO TID #21 cap 12/05/16 [Dilantin (*)] Phenytoin Sodium Extended 100 mg PO TID #21 cap 01/14/17 [Dilantin (*)] Albuterol [Proventil Inhaler HFA 1 - 2 puffs IH Q4H #1 mdi 01/19/17 (*)] Doxycycline Hyclate 100 mg PO BID #20 tablet 01/23/17 predniSONE 1 tab PO DAILY #15 tab 01/23/17 Medical Decision Making Differential Diagnosis: The patient was observed in the emergency department for several hours, he slept for the most part. He awoke and was feeling better and was able to walk with a steady gait. [facility]. I feel his symptoms can be explained by alcohol intoxication, however I have also considered polysubstance abuse and closed head injury. Departure - Departure Disposition: Home, Routine, Self-Care Clinical Impression: Alcohol intoxication Qualifiers: Complication of substance-induced condition: with delirium Qualified Code(s): F10.921 - Alcohol use, unspecified with intoxication delirium Condition: Fair Instructions: Abuse of Alcohol (DC), Alcohol Dependence (ED) Referrals: [facility],. [Clinic] - As per Instructions
[2017-01-26 05:01] VITALS: BP 126/90; PULSE 87; RESP 20; O2SAT 93
[2017-01-26] MEDS ORDERED: HYDROGEN PEROXIDE 236 ML BOTTLE TP ONE (05:10)
== END 2017-01-26 05:30 | disposition home or self-care (01) ==
LOC: EDUNIT#
DX: F10.921 Alcohol use, unspecified with intoxication delirium (principal); I10 Essential (primary) hypertension; J44.9 Chronic obstructive pulmonary disease, unspecified; F17.200 Nicotine dependence, unspecified, uncomplicated

== ENCOUNTER 2017-01-26 18:01 | Emergency (ER) | payer OTHER, MEDICAID ==
[2017-01-26] MEDS ORDERED: NS 1,000 ML IV ONE (18:05)
[2017-01-26] MEDS ORDERED: LORazepam 2 MG/ML INJ IVP ONE ×4 (18:05→20:31)
[2017-01-26] MEDS ORDERED: IPRATROPIUM/ALBUTEROL 3 ML DEYVIAL IH ONE (18:06)
--- NOTE | 2017-01-26 18:09 | EDPHY ---
H & P HPI/ROS: HPI CHIEF COMPLAINT: Anxiety, alcohol withdraw, shortness of breath, chest pain x2 hours HISTORY OF PRESENT ILLNESS: This patient is a 53-year-old male, who is very familiar with this is 53 ER visit, he presents emergency room with hyperventilation, anxiety diffuse chest tightness and feeling like he is going through alcohol withdrawal. He presents by EMS and states that he is feeling very anxious and having hard time catching his breath. Additionally feels diffuse chest tightness. He thinks he is going to alcohol withdrawal and having acute anxiety. Upon arrival his breath alcohol is 161. Past Medical History: History of alcohol withdrawal, hypertension, COPD, pneumonia, epilepsy Past Surgical History: Gastric bypass Social History: Homeless, denies daily tobacco use. Does endorse daily alcohol. Family History: Noncontributory ROS REVIEW OF SYSTEMS: A comprehensive 10 point review of systems is otherwise negative aside from elements mentioned in the history of present illness. Exam Constitutional hyperventilating, appears anxious triage nursing summary reviewed, vital signs reviewed, awake/alert. Eyes normal conjunctivae and sclera, EOMI, PERRLA. HENT normal inspection, atraumatic, moist mucus membranes, no epistaxis, neck supple/ no meningismus, no raccoon eyes. Respiratory clear lung sounds bilaterally but hyperventilating normal breath sounds, no respiratory distress, no wheezing. Cardiovascular rate normal, regular rhythm, no murmur, no edema, distal pulses normal. Gastrointestinal soft, non-tender, no rebound, no guarding, normal bowel sounds, no distension, no pulsatile mass. Genitourinary no CVA tenderness. Musculoskeletal no midline vertebral tenderness, full range of motion, no calf swelling, no tenderness of extremities, no meningismus, good pulses, neurovascularly intact. Skin pink, warm, & dry, no rash, skin atraumatic. Neurologic awake, alert and oriented x 3, AAOx3, moves all 4 extremities equally, motor intact, sensory intact, CN II-XII intact, normal cerebellar, normal vision, normal speech. Psychiatric anxious Heme/Lymph/Immune no lymphadenopathy. 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 Check alcohol level. Tree for alcohol withdrawal and anxiety. Re-evaluate. Re-evaluation: EKG interpretation by me on record in [employer] system. Impression time of EKG 180, sinus tach rate of 101. Q-waves noted V1 V2. Otherwise I do not appreciate acute ischemic change. When compared to this patient's old EKG on is unchanged. 2143: Patient's blood work EKG, troponin, chest x-ray reviewed. Negative troponin unremarkable chest x-ray nonischemic EKG. After multiple rounds of IV Ativan patient is feeling much better. He is requesting discharge. As for his shortness of breath, anxiety, hyperventilation, diffuse chest tightness is a clinical presentation consistent with acute anxiety/panic attack in the setting of acute alcohol intoxication and possible alcohol withdrawal. Patient is feeling much better after IV fluids multiple rounds of Ativan. This is his 53 ER visit. I have given him return precautions. I do encourage him to stop drinking alcohol. Clinical presentation emergency room acute anxiety attack. Source: Patient, EMS - Personal History Tetanus Vaccine Date: 2015 - Medical/Surgical History Hx Asthma: No Hx Chronic Respiratory Disease: Yes Hx Diabetes: No Hx Cardiac Disease: No Hx Renal Disease: No Hx Cirrhosis: No Hx Alcoholism: Yes Hx HIV/AIDS: No Hx Splenectomy or Spleen Trauma: No Other PMH: PMH: htn, depression/anxiety,chronic back pain. [id number]-fusion, rolanda,left knee,gastric bypass, COPD, epilepsy, ETOH abuse - Social History Smoking Status: Heavy smoker Constitutional: Initial Vital Signs Temperature (C) 36.5 C 01/26/17 18:12 Heart Rate 78 01/26/17 18:12 Respiratory Rate 18 01/26/17 18:12 Blood Pressure 126/87 H 01/26/17 18:12 O2 Sat (%) 98 01/26/17 18:12 O2 Delivery Mode Room Air Allergies/Adverse Reactions: gabapentin Allergy (Verified 01/19/17 02:12) bee stings Allergy (Severe, Uncoded 01/19/17 02:12) Anaphylaxis Home Medications: Medication Instructions Recorded Lisinopril/Hctz 20/12.5MG 1 ea PO DAILY 08/01/16 [Zestoretic/Prinzide 20/12.5MG (*)] Lisinopril/Hctz 20/12.5MG 1 ea PO DAILY #10 tab 12/05/16 [Zestoretic/Prinzide 20/12.5MG (*)] Phenytoin Sodium Extended 100 mg PO TID #21 cap 12/05/16 [Dilantin (*)] Phenytoin Sodium Extended 100 mg PO TID #21 cap 01/14/17 [Dilantin (*)] Albuterol [Proventil Inhaler HFA 1 - 2 puffs IH Q4H #1 mdi 01/19/17 (*)] Doxycycline Hyclate 100 mg PO BID #20 tablet 01/23/17 predniSONE 1 tab PO DAILY #15 tab 01/23/17 Medical Decision Making - Diagnostics Imaging Results: Imaging Impressions Chest X-Ray 01/26/17 18:05 Impression: Nothing acute identified. No pneumonia or CHF. - Data Points Laboratory Results: Laboratory Results 01/26/17 18:05 01/26/17 18:05 01/26/17 01/26/17 18:05 18:05 WBC 9.40 10^3/uL 10^3/uL (3.80-9.50) RBC 5.27 10^6/uL 10^6/uL (4.40-6.38) Hgb 12.4 g/dL L g/dL (13.7-17.5) Hct 40.0 % % (40.0-51.0) MCV 75.9 fL L fL (81.5-99.8) MCH 23.5 pg L pg (27.9-34.1) MCHC 31.0 g/dL L g/dL (32.4-36.7) RDW 21.8 % H % (11.5-15.2) Plt Count 148 10^3/uL L 10^3/uL (150-400) MPV 10.0 fL fL (8.7-11.7) Neut % (Auto) 71.1 % % (39.3-74.2) Lymph % (Auto) 22.2 % % (15.0-45.0) [place] % (Auto) 5.7 % % (4.5-13.0) Eos % (Auto) 0.2 % L % (0.6-7.6) Baso % (Auto) 0.5 % % (0.3-1.7) Nucleat RBC Rel Count 0.0 % % (0.0-0.2) Absolute Neuts (auto) 6.67 10^3/uL H 10^3/uL (1.70-6.50) Absolute Lymphs (auto) 2.09 10^3/uL 10^3/uL (1.00-3.00) Absolute Monos (auto) 0.54 10^3/uL 10^3/uL (0.30-0.80) Absolute Eos (auto) 0.02 10^3/uL L 10^3/uL (0.03-0.40) Absolute Basos (auto) 0.05 10^3/uL 10^3/uL (0.02-0.10) Absolute Nucleated RBC 0.00 10^3/uL 10^3/uL (0-0.01) Immature Gran % 0.3 % % (0.0-1.1) Immature Gran # 0.03 10^3/uL 10^3/uL (0.00-0.10) Platelet Estimate ADEQUATE (ADEQ) Hypochromasia 2+ H Microcytic Cells 1+ H Sodium 146 mEq/L H mEq/L (134-144) Potassium 3.5 mEq/L mEq/L (3.5-5.2) Chloride 101 mEq/L mEq/L (97-110) Carbon Dioxide 24 mEq/l mEq/l (22-31) Anion Gap 21 mEq/L H mEq/L (8-16) BUN 12 mg/dL mg/dL (7-23) Creatinine 0.7 mg/dL mg/dL (0.7-1.3) Estimated GFR > 60 Glucose 60 mg/dL L mg/dL (70-100) Calcium 9.0 mg/dL mg/dL (8.5-10.4) Creatine Kinase 300 IU/L H IU/L (0-224) CK-MB (CK-2) Fraction 5.93 ng/mL H ng/mL (0.00-3.19) CK-MB (CK-2) % 2.0 % % (0.0-4.0) Creatine Kinase Interp NEGATIVE (NEGATIVE) Troponin I < 0.012 ng/mL ng/mL (0.000-0.034) Ethyl Alcohol 263 mg/dL H mg/dL (0-10) Medications Given: Discontinued Medications Albuterol/Ipratropium (Duoneb) 3 ml IH EDNOW ONE Stop: 01/26/17 18:07 Last Admin: 01/26/17 18:19 Dose: 3 ml Sodium Chloride (Ns) 1,000 mls @ 0 mls/hr IV EDNOW ONE; Wide Open PRN Reason: Protocol Stop: 01/26/17 18:06 Last Admin: 01/26/17 18:20 Dose: 1,000 mls Lorazepam (Ativan Injection) 1 mg IVP EDNOW ONE Stop: 01/26/17 18:06 Last Admin: 01/26/17 18:20 Dose: 1 mg Lorazepam (Ativan Injection) 1 mg IVP EDNOW ONE Stop: 01/26/17 18:06 Last Admin: 01/26/17 18:20 Dose: Not Given Lorazepam (Ativan Injection) 1 mg IVP EDNOW ONE Stop: 01/26/17 20:31 Last Admin: 01/26/17 20:35 Dose: 1 mg Lorazepam (Ativan Injection) 1 mg IVP EDNOW ONE Stop: 01/26/17 20:32 Last Admin: 01/26/17 20:35 Dose: Not Given Departure - Departure Disposition: Home, Routine, Self-Care Clinical Impression: Anxiety Alcohol intoxication Qualifiers: Complication of substance-induced condition: uncomplicated Qualified Code(s): F10.920 - Alcohol use, unspecified with intoxication, uncomplicated Condition: Good Instructions: Alcohol Intoxication (ED), Anxiety (ED) Additional Instructions: 1. Please stop drinking alcohol. 2. Return emergency room if you have worsening symptoms questions or concerns. Referrals: Patient,NotPresent [Unknown] - As per Instructions
--- NOTE | 2017-01-26 18:10 | CPEKG ---
Heart Rate: 101 RR Interval: 594 P-R Interval: 152 QRSD Interval: 78 QT Interval: 332 QTC Interval: 431 P [place]: 48 QRS [place]: 45 T Wave [place]: 51 EKG Severity - OTHERWISE NORMAL ECG - EKG Impression: SINUS TACHYCARDIA Electronically Signed By: Yang Solomon 26-Jan-2017 22:51:04
[2017-01-26 18:18] LABS: % IMMATURE GRANULYOCYTES 0.3 % (0.0-1.1); ABSOLUTE IMMATURE GRANULOCYTES 0.03 10^3/uL (0.00-0.10); ADD DIFF? NO; ADD MORPH? YES; ADD SCAN? NO; ATYPICAL LYMPHOCYTE FLAG 10 (0-99); FRAGMENT RBC FLAG 20 (0-99); HEMOGLOBIN 12.4 g/dL (13.7-17.5); LEFT SHIFT FLG 0 (0-99); LIPEMIA HEMOLYSIS FLAG 80 (0-99); MEAN CELL HEMOGLOBIN 23.5 pg (27.9-34.1); MEAN CELL VOLUME 75.9 fL (81.5-99.8); PLATELET CLUMPS FLAG 0 (0-99); PLATELET COUNT 148 10^3/uL (150-400); RED BLOOD CELL COUNT 5.27 10^6/uL (4.40-6.38)
[2017-01-26 18:20] LABS: RED CELL DISTRIBUTION WIDTH 21.8 % (11.5-15.2)
[2017-01-26 18:27] LABS: CARBON DIOXIDE 24 mEq/l (22-31); CHLORIDE 101 mEq/L (97-110); POTASSIUM 3.5 mEq/L (3.5-5.2); SODIUM 146 mEq/L (134-144)
[2017-01-26 18:28] LABS: ANION GAP 21 mEq/L (8-16); CREATININE 0.7 mg/dL (0.7-1.3); ETHANOL SERUM 263 mg/dL (0-10); GLOMERULAR FILTRATION RATE > 60; GLUCOSE 60 mg/dL (70-100)
[2017-01-26 18:38] LABS: HYPOCHROMIA 2+; MICROCYTES 1+; PLATELET ESTIMATE ADEQUATE (ADEQ)
[2017-01-26 18:39] LABS: CK-MB INTERPRETATION NEGATIVE (NEGATIVE); TROPONIN I < 0.012 ng/mL (0.000-0.034)
[2017-01-26 18:44] LABS: CREATINE KINASE-MB FRACTION 5.93 ng/mL (0.00-3.19)
[2017-01-26 20:38] VITALS: RESP 16
[2017-01-26] MEDS ORDERED: LORazepam 1 MG TAB ONE (21:54)
[2017-01-26] MEDS ORDERED: LORazepam 1 MG TAB PO ONE (21:55)
[2017-01-26 22:10] VITALS: BP 154/95; PULSE 87; TEMP 98.2; O2SAT 96
== END 2017-01-26 22:03 | disposition home or self-care (01) ==
LOC: EDUNIT#
DX: F41.9 Anxiety disorder, unspecified (principal); F10.920 Alcohol use, unspecified with intoxication, uncomplicated; I10 Essential (primary) hypertension; J44.9 Chronic obstructive pulmonary disease, unspecified; F17.200 Nicotine dependence, unspecified, uncomplicated; E86.9 Volume depletion, unspecified
CPT/HCPCS: 71010; 93005; 96361; 96374; 96376; 99285; J2060; G0480

== ENCOUNTER 2017-01-27 18:09 | Inpatient (IN) | payer OTHER, MEDICAID ==
--- NOTE | 2017-01-27 18:12 | EDPHY ---
H & P Source: Patient, EMS - Personal History Tetanus Vaccine Date: 2015 - Medical/Surgical History Hx Asthma: No Hx Chronic Respiratory Disease: Yes Hx Diabetes: No Hx Cardiac Disease: No Hx Renal Disease: No Hx Cirrhosis: No Hx Alcoholism: Yes Hx HIV/AIDS: No Hx Splenectomy or Spleen Trauma: No Other PMH: PMH: htn, depression/anxiety,chronic back pain. [id number]-fusion, rolanda,left knee,gastric bypass, COPD, epilepsy, ETOH abuse - Social History Smoking Status: Heavy smoker HPI/ROS: HPI CHIEF COMPLAINT: Found down on the sidewalk, alcohol intoxication HISTORY OF PRESENT ILLNESS: Patient is a 51-year-old male alcoholic and homeless, very familiar to myself as a this patient multiple times in alcoholic and homeless he presents emergency room by EMS after was found down on the sidewalk outside the detention. No trauma reported. However patient was minimally responsive for police. 911 was called EMS evaluated him and reports that he appears highly intoxicated he does respond to verbal stimuli. Very sleepy. Smells of alcohol. Past Medical History: Alcoholism, homelessness, anxiety, alcohol withdraw Past Surgical History: No recent surgery. Social History: Homeless, daily alcohol use. Family History: Noncontributory ROS REVIEW OF SYSTEMS: A comprehensive 10 point review of systems is otherwise negative aside from elements mentioned in the history of present illness. Exam Constitutional smells of alcohol, somnolent triage nursing summary reviewed, vital signs reviewed, awake/alert. No obvious signs of trauma exam. Eyes normal conjunctivae and sclera, EOMI, PERRLA. HENT normal inspection, atraumatic, moist mucus membranes, no epistaxis, neck supple/ no meningismus, no raccoon eyes. Respiratory clear to auscultation bilaterally, normal breath sounds, no respiratory distress, no wheezing. Cardiovascular rate normal, regular rhythm, no murmur, no edema, distal pulses normal. Gastrointestinal soft, non-tender, no rebound, no guarding, normal bowel sounds, no distension, no pulsatile mass. Genitourinary no CVA tenderness. Musculoskeletal no midline vertebral tenderness, full range of motion, no calf swelling, no tenderness of extremities, no meningismus, good pulses, neurovascularly intact. Skin pink, warm, & dry, no rash, skin atraumatic. Neurologic very sleepy, moves all 4 extremities equally, motor intact, sensory intact, CN II-XII intact, normal cerebellar, normal vision, normal speech. Psychiatric normal mood/affect. Heme/Lymph/Immune no lymphadenopathy. Differential Diagnosis: Includes but is not limited to in a particular order acute alcohol intoxication, annual head bleed or trauma, electrolyte disturbance , hypothermia Medical Decision Making: Plan for this patient CT head without contrast rule out significant intracranial trauma, check alcohol level, check basic blood work , IV hydration, check temperature, monitor and storage bin tender re-evaluate. Re-evaluation: 1833: This patient has a normal temperature. And respond to verbal stimuli at this time. Very intoxicated. CT scan head without contrast is negative for acute bleed. Called to me by Dr. Theron Kurtz. 1922: Patient's alcohol level 363. 2045: Patient resting still intoxicated with alcohol. Patient signed over to Dr. Cano at 9:00 p.m. shift change. Patient will need time to sober. (Yang Solomon) Constitutional: Initial Vital Signs Temperature (C) 36.2 C 01/27/17 18:09 Heart Rate 91 01/27/17 18:09 Respiratory Rate 18 01/27/17 18:09 Blood Pressure 92/66 L 01/27/17 18:09 O2 Sat (%) 88 L 01/27/17 18:09 O2 Delivery Mode Nasal Cannula O2 (L/minute) 2 Allergies/Adverse Reactions: gabapentin Allergy (Verified 01/27/17 18:16) bee stings Allergy (Severe, Uncoded 01/19/17 02:12) Anaphylaxis Home Medications: Medication Instructions Recorded Lisinopril/Hctz 20/12.5MG 1 ea PO DAILY 08/01/16 [Zestoretic/Prinzide 20/12.5MG (*)] Lisinopril/Hctz 20/12.5MG 1 ea PO DAILY #10 tab 12/05/16 [Zestoretic/Prinzide 20/12.5MG (*)] Phenytoin Sodium Extended 100 mg PO TID #21 cap 12/05/16 [Dilantin (*)] Phenytoin Sodium Extended 100 mg PO TID #21 cap 01/14/17 [Dilantin (*)] Albuterol [Proventil Inhaler HFA 1 - 2 puffs IH Q4H #1 mdi 01/19/17 (*)] Doxycycline Hyclate 100 mg PO BID #20 tablet 01/23/17 predniSONE 1 tab PO DAILY #15 tab 01/23/17 Medical Decision Making - Diagnostics Imaging Results: Imaging Impressions Chest X-Ray 01/27/17 18:17 Impression: Hypoventilatory chest with no acute findings. ED Course/Re-evaluation: 10:30 p.m.-I reassessed this patient. He is easily arousable. No slurred speech. Will attempt to ambulate him. 10:45 p.m.-Able to walk with a steady gait. Unfortunately, he is unable to go to the [facility] because he has a seizure disorder and refuses to take anti seizure medication. We will attempt to find emergency detention for him tonight. (Afua Cano) 1:52 a.m.- Patient was signed out to me at about 11:00 p.m. awaiting [facility] which is pending because of alcohol withdrawal symptoms. He received a total of Ativan 3 mg from me and then a dose of phenobarbital 260 mg. This treated his withdrawal well, however he did go into atrial fibrillation with rapid ventricular response. Because of this, he was given a dose of diltiazem. It is unclear if he has had atrial fibrillation in the past. I do not see any record of it on review. His chads Vasc score is 0 and he is a very poor candidate for anticoagulation, given his frequent alcohol use. 3:00 a.m.- Unfortunately, the patient's atrial fibrillation with RVR has continued. He received a 2nd dose of diltiazem without any improvement. He has a rate between 110 and 160 at this point. His alcohol withdrawal seems to have improved for the most part, however given his fast rate I have started him on a diltiazem drip and he will need to be admitted to the hospitalist service. I have discussed the case with Dr. Clayton and ordered him a bed in the PCU. ( Lor Patricia) - Data Points Laboratory Results: Laboratory Results 01/27/17 18:15 01/28/17 03:34 01/28/17 03:34 Sodium 143 mEq/L mEq/L (134-144) Potassium 3.2 mEq/L L mEq/L (3.5-5.2) Chloride 110 mEq/L mEq/L (97-110) Carbon Dioxide 20 mEq/l L mEq/l (22-31) Anion Gap 13 mEq/L mEq/L (8-16) BUN 9 mg/dL mg/dL (7-23) Creatinine 0.6 mg/dL L mg/dL (0.7-1.3) Estimated GFR > 60 Glucose 79 mg/dL mg/dL (70-100) Calcium 7.2 mg/dL L D mg/dL (8.5-10.4) Phosphorus 4.6 mg/dL H mg/dL (2.5-4.5) Magnesium 1.5 mg/dL L mg/dL (1.6-2.3) Medications Given: Enoxaparin Sodium (Lovenox) 100 mg SC BID PADMA Stop: 07/27/17 05:44 Last Admin: 01/28/17 06:51 Dose: 100 mg Lorazepam (Ativan) 1 mg PO Q4HRS PRN PRN Reason: Agitation if able to take PO Stop: 07/27/17 04:05 Last Admin: 01/28/17 06:49 Dose: 1 mg Discontinued Medications Diltiazem HCl (Cardizem 25 Mg/5 Ml Vial) 20 mg IVP EDNOW ONE Stop: 01/28/17 00:31 Last Admin: 01/28/17 01:36 Dose: 20 mg Diltiazem HCl (Cardizem 25 Mg/5 Ml Vial) 25 mg IVP EDNOW ONE Stop: 01/28/17 01:57 Last Admin: 01/28/17 02:45 Dose: 25 mg Sodium Chloride (Ns) 1,000 mls @ 0 mls/hr IV EDNOW ONE; Wide Open PRN Reason: Protocol Stop: 01/27/17 18:17 Last Admin: 01/27/17 18:20 Dose: 1,000 mls Sodium Chloride (Ns) 1,000 mls @ 0 mls/hr IV ONCE ONE PRN Reason: Wide Open Stop: 01/27/17 23:38 Last Admin: 01/27/17 23:38 Dose: 1,000 mls Sodium Chloride (Ns) 1,000 mls @ 0 mls/hr IV ONCE ONE PRN Reason: Wide Open Stop: 01/28/17 00:44 Last Admin: 01/28/17 00:44 Dose: 1,000 mls Diltiazem HCl 125 mg/ Dextrose 125 mls @ 0 mls/hr IV EDNOW ONE; As Directed PRN Reason: Protocol Stop: 01/28/17 03:19 Last Admin: 01/28/17 03:52 Dose: 125 mls Magnesium Sulfate/Dextrose (Magnesium Sulf 1 Gm (Premix)) 100 mls @ 100 mls/hr IV ONCE ONE Stop: 01/28/17 06:43 Last Admin: 01/28/17 06:07 Dose: 100 mls Lorazepam (Ativan Injection) 1 mg IVP EDNOW ONE Stop: 01/27/17 23:16 Last Admin: 01/27/17 23:37 Dose: 1 mg Lorazepam (Ativan Injection) 2 mg IVP EDNOW ONE Stop: 01/27/17 23:44 Last Admin: 01/27/17 23:50 Dose: 2 mg Lorazepam (Ativan Injection) 1 mg IVP ONCE ONE Stop: 01/28/17 03:36 Last Admin: 01/28/17 03:40 Dose: 1 mg Phenobarbital Sodium (Phenobarbital) 260 mg IVP ONCE ONE Stop: 01/27/17 23:44 Last Admin: 01/28/17 00:23 Dose: 260 mg Potassium Chloride (Klor-Con) 10 - 40 meq PO ONCE ONE PRN Reason: Protocol Stop: 01/28/17 05:45 Last Admin: 01/28/17 06:06 Dose: 40 meq Departure - Departure Disposition: Home, Routine, Self-Care Clinical Impression: Atrial fibrillation with RVR Alcohol intoxication Qualifiers: Complication of substance-induced condition: uncomplicated Qualified Code(s): F10.920 - Alcohol use, unspecified with intoxication, uncomplicated Alcohol withdrawal Qualifiers: Complication of substance-induced condition: with delirium Qualified Code(s): F10.231 - Alcohol dependence with withdrawal delirium Condition: Good
[2017-01-27] MEDS ORDERED: NS 1,000 ML IV ONE ×2 (18:16→23:37)
[2017-01-27 18:25] LABS: PLATELET COUNT 142 10^3/uL (150-400)
[2017-01-27] MEDS ORDERED: LORazepam 2 MG/ML INJ IVP ONE ×2 (23:15→23:43)
[2017-01-27] MEDS ORDERED: CHLORDIAZEPOXIDE 25MG PREPK#6 BTL TAKEHOME ONE (23:27)
[2017-01-27] MEDS ORDERED: PHENobarbital NA 130 MG/ML VIAL IVP ONE (23:43)
--- NOTE | 2017-01-28 00:24 | CPEKG ---
Heart Rate: 143 RR Interval: 420 QRSD Interval: 78 QT Interval: 316 QTC Interval: 488 QRS [place]: 42 T Wave [place]: -30 EKG Severity - ABNORMAL ECG - EKG Impression: ATRIAL FIBRILLATION, V-RATE 90-192 EKG Impression: CONSIDER ANTEROSEPTAL INFARCT Electronically Signed By: Lor Patricia 28-Jan-2017 07:55:30
[2017-01-28] MEDS ORDERED: DILTIAZEM 25 MG/5 ML VIAL IVP ONE ×2 (00:30→01:56)
[2017-01-28] MEDS ORDERED: NS 1,000 ML IV ONE (00:43)
[2017-01-28] MEDS ORDERED: DILTIAZEM 125 MG in D5W 125 ML IV ONE (03:18)
[2017-01-28] MEDS ORDERED: LORazepam 2 MG/ML INJ IVP ONE (03:35)
[2017-01-28] MEDS ORDERED: LORazepam 2 MG/ML INJ ONE (03:38)
[2017-01-28] MEDS ORDERED: ONDANSETRON 4 MG/2 ML VIAL IVP PRN (04:04)
[2017-01-28] MEDS ORDERED: ALBUTEROL 3 ML DEYVIAL IH PRN (04:04)
[2017-01-28] MEDS ORDERED: ACETAMINOPHEN 325 MG TAB PO PRN (04:04)
[2017-01-28] MEDS ORDERED: LORazepam 1 MG TAB PO PRN (04:06)
[2017-01-28] MEDS ORDERED: chlordiazePOXIDE 25 MG CAP PO PRN (04:06)
[2017-01-28] MEDS ORDERED: PROTOCOL POTASSIUM 1 DOSE MISC PRN (05:13)
[2017-01-28] MEDS ORDERED: PROTOCOL MAGNESIUM 1 DOSE IV PRN (05:13)
[2017-01-28] MEDS ORDERED: PROTOCOL K PHOSPHATE 1 DOSE IV PRN (05:13)
[2017-01-28] MEDS ORDERED: PROTOCOL CALCIUM 1 DOSE IV PRN (05:14)
[2017-01-28] MEDS ORDERED: POTASSIUM CL 10 MEQ TAB PO ONE ×2 (05:44→14:47)
[2017-01-28] MEDS ORDERED: MAGNESIUM SULF 1 GM/DEXTROSE 100 ML IV ONE (05:44)
[2017-01-28] MEDS ORDERED: DILTIAZEM 125 MG in D5W 125 ML IV SCH (05:45)
[2017-01-28] MEDS ORDERED: ENOXAPARIN 100 MG/ML SYR SC SCH (05:45)
[2017-01-28] MEDS ORDERED: LR 1,000 ML IV SCH (06:30)
[2017-01-28] MEDS ORDERED: POTASSIUM CL 10 MEQ TAB ONE (07:24)
--- NOTE | 2017-01-28 07:48 | GHP ---
[f rep st] HISTORY AND PHYSICAL DATE OF ADMISSION: 01/28/2017 SOURCE: The patient is able to provide history. He appears reliable. His EMR was also reviewed. He has multiple ER visits over the past year and a recent hospital stay in October 2016. Case discussed with ED provider. CHIEF COMPLAINT: Syncope and chest pain. HISTORY OF PRESENT ILLNESS: This is a very pleasant 51-year-old gentleman with past medical history significant for alcohol dependence with history of baseline seizure disorder in addition to a history of withdrawal, COPD, anxiety , depression, chronic back pain, hypertension, recurrent falls, lightheadedness , homelessness, who presents to the emergency department after being found down outside of the homeless half-way. The patient was not able to be awoken and EMS was called. The patient arrived to the emergency department and was thought to be significantly intoxicated. He was also found to be in AFib with RVR with a heart rate as high as 170. The patient received IV fluids, Ativan without improvement in his heart rate. He was subsequently placed on Cardizem with slowing of his heart rate. The patient does report ongoing left-sided chest pain. He did present to the emergency department 2 days ago with similar complaints. Evaluation at that time was negative. He has had a history of recurrent falls. The patient does report some increasing shortness of breath upon chronic shortness of breath with his history of COPD. He is not oxygen dependent. He reports some mild lower extremity edema without any orthopnea or recent PND. The patient denies any lightheadedness or previous presyncopal or syncopal episodes. He denies any headache. The patient does have complaints of left hand numbness and tingling without weakness that is new. REVIEW OF SYSTEMS: GENERAL: Patient denies any fevers chills. SKIN: Patient does report an abrasion to his arms and face bilaterally. He denies any other rashes or sores. ENT: Patient does report some increased nasal congestion. No sore throat. He does feel congestion in his throat as well, but denies any dysphagia or odynophagia. He denies any rhinorrhea. EYES: Patient denies any acute changes in vision. No ocular pain. CV: The patient does report a history of palpitations for the last 2-3 weeks. He has been noting increased edema in his lower legs bilaterally for the last several weeks as well. The patient has had some lightheadedness. GI: The patient denies any nausea, vomiting, abdominal pain. No diarrhea. : No dysuria or hematuria. Musculoskeletal: The patient complains of chronic back pain. No other myalgias. Neuro: Left-handed numbness tingling. No headache. PSYCH: The patient does report a history of anxiety. No depression. Denies any SI or HI. ALLERGIES: Gabapentin, and bee stings. HOME MEDICATIONS: Dilantin 100 mg p.o. t.i.d., lisinopril HCTZ 20/12.5 mg daily , doxycycline 100 mg p.o. b.i.d., albuterol 2 puffs q.4 hours p.r.n. PAST MEDICAL HISTORY: Significant for alcoholism with withdrawal, COPD, seizure disorder, anxiety without depression, chronic back pain, hypertension benign essential, recurrent falls, history of rib fractures, pulmonary nodules and homelessness. PAST SURGICAL HISTORY: Significant for gastric bypass, cholecystectomy, S1 and L2 fusion, left knee scope. FAMILY HISTORY: Unknown. Mother at young age due to lung cancer, but had a positive history of heavy tobacco use. SOCIAL HISTORY: The patient does drink approximately half-pint of liquor to 1 pint of liquor on a daily basis. He smokes approximately 1/2 pack a day for the last 10-15 years. He denies any skin drug use. CODE STATUS: Full. Patient without any emergency contacts. PHYSICAL EXAMINATION: VITAL SIGNS: Upon arrival to the emergency department, blood pressure 126/87, heart rate 78, respiratory rate 18, O2 saturation 98% on room air with a temperature of 96.5. Heart rate in the emergency department not documented but was noted to be as high as 170s for heart rate with blood pressures that decline slightly with initiation of Cardizem in the emergency department. Current heart rate in the 80s to 90s, appears to be irregular sinus arrhythmia based on telemetry. Blood pressure bedside systolic in the one teens. Vital signs for today's visit, previous was for 01/26 visit: Initial blood pressure 92/60, O2 sat 88% on room air, temperature 36.2, heart rate 91. Current vitals Blood pressure 114/77, heart rate 91, respiratory rate 37, O2 sat 97% on 2 liters by nasal cannula with a temperature of 36.8. GENERAL : No acute distress. Pleasant, cooperative, adult gentleman is lying quietly in bed, awake. Affect is flat. HEAD: Normocephalic. Patient with some evidence of trauma with abrasions to the bilateral cheeks, arms and hands. EYES : Extraocular muscles are intact. Pupils equal, round, slightly decreased reactivity to light bilaterally and symmetric. No scleral icterus or conjunctival injection. ENT: Mucous membranes appear slightly dry. No oropharyngeal erythema or exudates. Dentition is in fair condition. CV: Irregularly irregular without any appreciated murmurs, rubs, or gallops. Slightly distant heart sounds. No chest wall tenderness to palpation. RESPIRATORY: Unlabored breathing. LUNGS: Clear to auscultation bilaterally. No wheezes, rales, or rhonchi. ABDOMEN: Obese, soft, nontender to palpation. No rebound, guarding, or masses appreciated. : No suprapubic tenderness to palpation. No Wheatley in place. EXTREMITIES: Patient's strength grossly normal. Able to sit up independently. NEURO: Cranial nerves 2-12 intact, symmetric bilaterally. Patient is awake, alert, oriented x3. PSYCH: Patient affect slightly flat, but he is cooperative and pleasant, appropriate, otherwise is not agitated. Slight tremor. LABORATORY STUDIES: WBC is 9.40, H and H 12.4 and 40.0, MCV of 75.9, platelet count is 149. No bands. Sodium is 146, potassium 3.5, chloride 101, CO2 24, anion gap 21, BUN 12, creatinine 0.7, GFR greater than 60, glucose 60, calcium 9.0. CK is 300, CK-MB is 5.93. CK negative. Troponin is negative. This is from 01/26/2017. Laboratory studies for 01/27/2017, WBC is 10.88, H and H is 14.2 and 44.8, MCV of 76.1, platelet count is 142. No bands. The patient with polychromasia, hypochromasia, microcytic cells, and oval macrocytes on diff. Sodium is 143, potassium 3.2, chloride is 110, CO2 20, anion gap 13, BUN is 9, creatinine 0.6, estimated GFR greater than 60, glucose 79, calcium 7.2, phosphorus 4.6, magnesium 1.5. Previous cardiac studies from 01/26/2017 visits shows CK of 300, CK-MB is 5.93. CK is negative. Troponin is negative. The patient's initial anion gap upon arrival was elevated at 20. Alcohol level 363 on 01/27/2017. Chest x-ray, image report reviewed myself, hypoventilatory chest without any acute findings. EKG reviewed myself shows AFib, RVR with heart rate 143, Q- waves in the anteroseptal leads. QTc is 488. No acute ST elevations. ASSESSMENT AND PLAN: A pleasant 51-year-old gentleman with history of alcohol dependence, seizure disorder, COPD, tobacco use and alcohol abuse who presents following suspected syncopal event. The patient was found unresponsive. 1. Atrial fibrillation with rapid ventricular response, is likely etiology for patient's symptoms in addition to alcohol intoxication versus seizure. The patient was started on a Cardizem drip with improvement in heart rate and possibly has converted, although he has gone in and out of AFib since arrival to the telemetry floor. Blood pressures are tolerating 5 mg of Cardizem per hour at this time. We will plan to continue. The patient is complaining of some shortness of breath. We will plan to check a D-dimer. The patient was initially hypoxic upon arrival. If elevated, will need to further consider imaging to rule out pulmonary embolus. Also discussed with the patient additional evaluation with echocardiogram. He is at risk for ischemic cardiomyopathy with his history of intensive alcohol consumption on a daily basis. Encouraged immediate cessation. We will plan to put patient on therapeutic dose of Lovenox. I also reviewed with the patient pending the outcome of echocardiogram, recommendations for anticoagulation may lean towards no anticoagulation and increased risk of stroke secondary to patient's history of alcoholism and multiple blackouts, although more recently, patient has been endorsing increasing palpitations. 2. Alcohol in withdrawal. Currently, the patient has been placed on CIWA. Will have Ativan and Librium available p.r.n. 3. Hypokalemia. Replacement has been ordered number. 4. Hypomagnesemia, replacement ordered. 5. Seizure disorder. Patient is currently on Dilantin. Will check levels. 6. Anxiety and depression. Supportive care. Ativan is available p.r.n. 7. Chronic back pain. Supportive care. We will try to minimize any opiates. Limited at use of nonnarcotic options secondary to patient's recent increased alcohol consumption. Awaiting liver function tests, as well as therapeutic Lovenox and increased risk of bleeding with any nonsteroidal anti-inflammatory drugs. 8. Benign essential hypertension. Blood pressures at this time are very well controlled with a Cardizem drip. We will plan to monitor closely. The patient would likely benefit from resuming his home medications of lisinopril HCTZ once off the drip. He may require in addition to a rate control option including beta rosendo versus p.o. Cardizem. 9. History of falls, multifactorial including alcohol use, possible atrial fibrillation, syncope, seizures and/or pulmonary embolus. Further evaluation as noted above. Fall precautions and bed alarm have been ordered. 10. Tobacco abuse. Nicotine patch has been ordered p.r.n. 11. Fluid, electrolyte, nutrition. Intravenous fluids will be continued. Electrolytes will be replaced p.r.n. Diet as tolerated. 12. Prophylaxis. Sequential compression devices, therapeutic Lovenox. 13. Cor is full. Patient without any contacts for emergencies. DISPOSITION: The patient has been admitted to inpatient status on progressive care unit given this new onset of atrial fibrillation, rapid ventricular response, multiple syncopal episodes, alcohol withdrawal. Anticipate that he will be here for greater than 2 midnights. /[id number]/MODL MTDD
--- NOTE | 2017-01-28 08:25 | PDMN ---
Medical Necessity Medical necessity: est los>2mn for new onset afib w/ RVR, etoh withdrawal, multiple syncopal episodes, hypokalemia, and hypomagnesemia; admit to PCU for Cardizem gtt, CIWA, IVF, and electrolyte replacement; comorbid htn, copd, sz disorder, chronic back pain, and hx falls; per order and H&P 01/28/17
--- NOTE | 2017-01-28 08:28 | CPEKG ---
Heart Rate: 108 RR Interval: 556 P-R Interval: 144 QRSD Interval: 70 QT Interval: 348 QTC Interval: 467 P [place]: 46 QRS [place]: 58 T Wave [place]: 72 EKG Severity - ABNORMAL ECG - EKG Impression: SINUS TACHYCARDIA EKG Impression: MULTIFORM VENTRICULAR PREMATURE ATRIAL COMPLEXES EKG Impression: COMPARED WITH 01/28/2017 AT 12:23 A.M., SINUS RHYTHM IS NOW PRESENT Electronically Signed By: Irina Silverio 28-Jan-2017 08:44:19
[2017-01-28 08:42] LABS: INR 1.06 (0.83-1.16)
--- NOTE | 2017-01-28 08:57 | HOSPPROG ---
Hospitalist Progress Note Assessment/Plan: Atrial fibrillation with RVR - new diagnosis. TSH, echo pending. Rate controlled with IV dilt. Chads-vasc 1. Received, though his Has-bled score at least 3 and with etoh hx, I'm don't think he is a good candidate for anticoagulation. -D/C Lovenox -Daily ASA for cva prevention -start oral dilt, wean off drip -consider dig load if not rate controlled on dilt Acute hypoxemic respiratory failure - Suspect related to his COPD. CTA neg for PE. BNP not significantly elevated and no e/o HF on echo. Currently on 1.5 LPM. Minimal RUL consolidation on CTA, ?aspiration. No fevers, leukocytosis or PNA symptoms. -send PCT -consider treating for possible asp PNA if he fevers given the small RUL opacity of CT and his h/o being found down -cont prednisone, nebs, advair -wean O2 as able Elevated troponin - suspect strain in setting of rapid a fib. Trending down. No CP. No WMA on echo. Rpt EKG now in NSR, non-ischemic, similar to priors. Alcohol intoxication with impending withdrawal - Starting to have tremor. Will schedule Librium, q4h CIWA, prn ativan. Pt states he wants to quit drinking. Seizure disorder - cont dilantin, check level Hypertension - adequate control RLL pulmonary nodule - needs outpt f/u imaging Full code Dispo - cont inpt Subjective: Pt c/o some SOB. No CP. Says he wants to stop drinking. No fevers. No cough. Objective: Vital Signs Temp Pulse Resp BP Pulse Ox 36.8 C 106 H 20 146/78 H 94 01/28/17 08:39 01/28/17 08:39 01/28/17 08:39 01/28/17 08:39 01/28/17 08:39 01/27/17 01/28/17 01/29/17 05:59 05:59 05:59 Intake Total 3080 Output Total 1300 Balance 1780 PT 14.0 SEC (12.0-15.0) 01/28/17 08:20 INR 1.06 (0.83-1.16) 01/28/17 08:20 - Physical Exam Constitutional: no apparent distress Eyes: PERRL Ears, Nose, Mouth, Throat: moist mucous membranes Cardiovascular: irregularly irregular Respiratory: no respiratory distress, reduced air movement, expiratory wheeze Gastrointestinal: normoactive bowel sounds, soft, non-tender abdomen Skin: warm Musculoskeletal: full muscle strength Neurologic: AAOx3 Psychiatric: interacting appropriately, poor insight, poor judgement ICD10 Worksheet Patient Problems: Problems Problem Status Onset Alcohol intoxication Acute Alcohol withdrawal Acute Atrial fibrillation with RVR Acute Abdominal pain Acute Alcohol abuse Acute COPD (chronic obstructive pulmonary disease) Acute Facial laceration Acute Laceration of eyebrow, left Acute Lactic acidosis Acute Multiple abrasions Acute Neck strain Acute Reversible airways disease Acute Seizure Acute Situational depression Acute Strain of mid-back Acute
[2017-01-28] MEDS ORDERED: ENOXAPARIN 40 MG/0.4 ML SYR SC SCH (09:00)
[2017-01-28 09:01] LABS: CREATINE KINASE 153 IU/L (0-224)
[2017-01-28] MEDS ORDERED: MAGNESIUM SULF 2 GM/WATER 50 ML IV ONE (09:13)
[2017-01-28] MEDS: chlordiazePOXIDE 25 MG CAP PO SCH ×3 (09:18→20:52)
[2017-01-28] MEDS: THIAMINE HCL 100 MG TAB PO SCH (09:19)
[2017-01-28] MEDS: LORazepam 1 MG TAB PO PRN ×5 (09:19→20:51)
[2017-01-28] MEDS: NICOTINE 21 MG/24 HR PATCH TD SCH (09:52)
[2017-01-28 10:09] LABS: PLATELET COUNT 89 10^3/uL (150-400)
[2017-01-28] MEDS: IPRATROPIUM/ALBUTEROL 3 ML DEYVIAL IH SCH ×4 (10:37→20:35)
[2017-01-28] MEDS ORDERED: LISINOPRIL/HCTZ 20/12.5MG 1 EA TAB PO SCH (10:45)
[2017-01-28] MEDS ORDERED: NON-FORMULARY NEW DRUG (Doxycycline Hyclate [Doxycycline Hyclate] 100 MG) PO SCH (10:45)
[2017-01-28] MEDS ORDERED: predniSONE 20 MG TAB PO SCH (10:45)
[2017-01-28] MEDS: FLUTICASONE/SALMETER 250/50MCG DISKUS IH SCH ×2 (10:50→20:35)
[2017-01-28] MEDS ORDERED: IOPAMIDOL (ISOVUE 370) 100 ML BTL IV ONE (10:58)
[2017-01-28] MEDS ORDERED: FUROSEMIDE 20 MG/2 ML VIAL IVP ONE (11:02)
--- NOTE | 2017-01-28 11:23 | ECHO ---
[email or web address] [email or web address] [id number] Main: [phone] Fax: Transthoracic Echocardiogram Name: ZACKERY PINZON MR#: [id number] Study Date: 01/28/2017 Study Time: 07:50 AM Date of : 1965 Age: 51 year(s) Height: 195.6 cm (77 in.) Weight: 111.58 kg (246 lb.) BSA: 2.44 m2 Gender: Male Examination: Echo Indication: Atrial fibrillation/found down Image Quality: Contrast: Requested by: Cyndi Clayton BP: / Heart Rate: Rhythm: Indication: Atrial fibrillation/found down Procedure Staff Mixer Machine Feeder: Courtney Britton Physician: Clif Carver Requesting Provider: Conclusions: No pericardial effusion. Hypercontractile left ventricle. Ejection fraction 75-80%. No significant valvular abnormalities by Doppler. Normal right ventricular systolic function. Measurements: Chambers Valvular Assessment AV/MV Valvular Assessment TV/PV Normal Normal Normal Name Value Range Name Value Range Name Value Range Ao Dorene (MM): 4.0 cm (2.2 cm-3.7 AV meanP mmHg ( - ) cm) MV E Vmax: 1.22 m/s ( - ) LVDd (2D): 4.1 cm (4.2 cm-5.9 MV A Vmax: 1.46 m/s ( - ) cm) MV E/A: 0.84 ( - ) EF Range: 75-80 % Continued Measurements: Chambers Valvular Assessment AV/MV Name Value Name Value LADs: 3.2 cm MV E' Septal: 0.13 m/s MV E/E' Septal: 9.50 Findings: Left Ventricle: Normal size left ventricle. Global hypercontractility of the left ventricle. The ejection fraction is estimated to be 75-80 %. Right Ventricle: Normal size right ventricle. Left Atrium: Patient: ZACKERY PINZON Study Date: 01/28/2017 Page 1 of 2 07:50 AM The left atrium is normal in size. Right Atrium: The right atrium is normal in size. Mitral Valve: The mitral valve is normal in appearance. Aortic Valve: Aortic valve is not well visualized. Tricuspid Valve: The tricuspid valve appears normal. Pulmonic Valve: Pulmonary valve not well visualized. Exam Comments: Technically difficult study.. (No Signature Object) Patient: ZACKERY PINZON Study Date: 01/28/2017 Page 2 of 2 07:50 AM [id number]
[2017-01-28] MEDS: DILTIAZEM 30 MG TAB PO SCH ×2 (13:06→17:09)
[2017-01-28] MEDS: DOXYCYCLINE HYCLATE 100 MG CAP/TAB PO SCH ×2 (13:06→20:51)
[2017-01-28] MEDS ORDERED: CALCIUM GLUCONATE 50 ML IV ONE (14:47)
[2017-01-28] MEDS ORDERED: hydrALAZINE 25 MG TAB PO PRN (15:16)
[2017-01-28] MEDS: PHENYTOIN SODIUM EXTENDED 100 MG CAP PO SCH ×2 (15:48→20:51)
[2017-01-28] MEDS: ASPIRIN EC 325 MG TAB PO SCH (15:53)
--- NOTE | 2017-01-28 17:20 | ASMTCMCOM ---
CM Note CM Note Notes: 01/28/2017 Case Management Note Met w/pt. Pt is homeless but stated that he is not allowed at the [facility] for 30days for a rule violation. Pt has had previous stays at [facility] and [facility] in an attempt to find sobriety. Case Management d/c poc: TBD. Case Management to follow. Date Signed: 01/28/2017 05:20 PM Electronically Signed By:Miriam Headley RN
[2017-01-28] MEDS ORDERED: DILTIAZEM HCL/D5W 125 ML IV SCH (19:00)
[2017-01-29] MEDS: DILTIAZEM 30 MG TAB PO SCH ×2 (00:44→05:45)
[2017-01-29] MEDS: IPRATROPIUM/ALBUTEROL 3 ML DEYVIAL IH SCH ×4 (05:32→22:02)
[2017-01-29] MEDS: LORazepam 1 MG TAB PO PRN ×6 (05:46→23:11)
[2017-01-29] MEDS: predniSONE 20 MG TAB PO SCH (08:38)
[2017-01-29] MEDS: PHENYTOIN SODIUM EXTENDED 100 MG CAP PO SCH ×3 (08:38→22:21)
[2017-01-29] MEDS: chlordiazePOXIDE 25 MG CAP PO SCH ×3 (08:38→22:21)
[2017-01-29] MEDS: ASPIRIN EC 325 MG TAB PO SCH (08:38)
[2017-01-29] MEDS: THIAMINE HCL 100 MG TAB PO SCH (08:38)
[2017-01-29] MEDS: DOXYCYCLINE HYCLATE 100 MG CAP/TAB PO SCH ×2 (08:39→22:21)
[2017-01-29] MEDS: FLUTICASONE/SALMETER 250/50MCG DISKUS IH SCH ×2 (08:39→22:03)
[2017-01-29] MEDS ORDERED: ENOXAPARIN 40 MG/0.4 ML SYR SC SCH (09:00)
[2017-01-29] MEDS ORDERED: POTASSIUM CL 10 MEQ TAB PO ONE (09:58)
[2017-01-29] MEDS ORDERED: MAGNESIUM SULF 1 GM/DEXTROSE 100 ML IV ONE (10:01)
[2017-01-29] MEDS ORDERED: CALCIUM GLUCONATE 50 ML IV ONE (10:01)
[2017-01-29] MEDS: DILTIAZEM CD 120 MG CAP PO SCH (10:54)
[2017-01-29] MEDS: NICOTINE 21 MG/24 HR PATCH TD SCH (10:55)
[2017-01-29] MEDS ORDERED: chlordiazePOXIDE 25 MG CAP PO SCH (14:13)
--- NOTE | 2017-01-29 14:20 | HOSPPROG ---
Hospitalist Progress Note Assessment/Plan: Atrial fibrillation with RVR - new diagnosis. TSH nl, valves ok on echo. Alcohol likely precipitating factor. Rate controlled, transitioned to oral dilt today. Chads-vasc 1. Has-bled score at least 3 and with etoh hx, I'm don' t think he is a good candidate for anticoagulation. -D/C'd Lovenox -Daily ASA for cva prevention -cont oral dilt for rate control Acute hypoxemic respiratory failure - Suspect related to his COPD. CTA neg for PE. BNP not significantly elevated and no e/o HF on echo. Currently on 1.5 LPM. Minimal RUL consolidation on CTA, ?aspiration. No fevers, leukocytosis or PNA symptoms. PCT neg, low risk for bacterial infection. -consider treating for possible asp PNA if he fevers given the small RUL opacity of CT and his h/o being found down -cont prednisone, nebs, advair -wean O2 as able Elevated troponin - suspect strain in setting of rapid a fib. Trending down. No CP. No WMA on echo. Rpt EKG now in NSR, non-ischemic, similar to priors. Alcohol intoxication with impending withdrawal - Starting to have increased tremor. -increase scheduled Librium -cont q4h CIWA, prn ativan -Pt states he wants to quit drinking Seizure disorder - cont dilantin, check level Hypertension - adequate control RLL pulmonary nodule - needs outpt f/u imaging Full code Dispo - cont inpt Subjective: Pt doing ok. He is tremulous, feels more anxious. Breathing is better. No CP. Objective: Vital Signs Temp Pulse Resp BP Pulse Ox 36.6 C 101 H 18 144/80 H 95 01/29/17 12:00 01/29/17 12:00 01/29/17 12:00 01/29/17 12:00 01/29/17 12:00 Microbiology 01/28/17 14:18 Gastrointestinal Tract Panel (PCR) - Final Stool No Organism Detected 01/28/17 13:00 Respiratory Panel (PCR) - Final Nasal, Sinus - Swab No Organism Detected Laboratory Results 01/29/17 04:32 01/29/17 04:32 01/28/17 01/29/17 01/30/17 05:59 05:59 05:59 Intake Total 3080 850 Output Total 1300 2575 400 Balance 1780 -1725 -400 PT 14.0 SEC (12.0-15.0) 01/28/17 08:20 INR 1.06 (0.83-1.16) 01/28/17 08:20 - Physical Exam Constitutional: no apparent distress Eyes: PERRL Ears, Nose, Mouth, Throat: moist mucous membranes Cardiovascular: regular rate and rhythym Respiratory: no respiratory distress, clear to auscultation Gastrointestinal: normoactive bowel sounds, soft, non-tender abdomen Skin: warm Musculoskeletal: full muscle strength Neurologic: AAOx3 Psychiatric: poor insight ICD10 Worksheet Patient Problems: Problems Problem Status Onset Alcohol intoxication Acute Alcohol withdrawal Acute Atrial fibrillation with RVR Acute Abdominal pain Acute Alcohol abuse Acute COPD (chronic obstructive pulmonary disease) Acute Facial laceration Acute Laceration of eyebrow, left Acute Lactic acidosis Acute Multiple abrasions Acute Neck strain Acute Reversible airways disease Acute Seizure Acute Situational depression Acute Strain of mid-back Acute
--- NOTE | 2017-01-29 15:04 | ASMTCMCOM ---
CM Note CM Note Notes: 01/29/2017 Case Management Note Met w/pt. Provided information for cold weather shelters in [place] for predicted weather change coming on . Pt was not optimistic he would be allowed to stay d/t rule infraction at the homeless [facility] prior to admission.. Pt suggested possibility of traveling to nearby [facility] for sheltering. Pt is not in contact with any family members or friends for [facility] from the upcoming cold weather. Provided Medicare accepting drug and alcohol cessation resources including in patient, intensive outpatient, group sober house and counseling services. Pt to call programs that were of interest to start intake process. Pt is well known to [facility] and is well resourced and connected within the [place] community. Case Management d/c poc: To streets when medically stable. Case Management agreed to provide bus pass at d/c for transportation. Case management available if needs change. Date Signed: 01/29/2017 03:04 PM Electronically Signed By:Miriam Headley RN
[2017-01-30] MEDS: LORazepam 1 MG TAB PO PRN ×7 (03:09→19:37)
[2017-01-30] MEDS: IPRATROPIUM/ALBUTEROL 3 ML DEYVIAL IH SCH ×5 (05:34→23:10)
[2017-01-30] MEDS ORDERED: POTASSIUM CL 10 MEQ TAB PO ONE (08:38)
[2017-01-30] MEDS ORDERED: CALCIUM GLUCONATE 50 ML IV ONE (08:40)
[2017-01-30] MEDS: predniSONE 20 MG TAB PO SCH (09:00)
[2017-01-30] MEDS: PHENYTOIN SODIUM EXTENDED 100 MG CAP PO SCH ×3 (09:01→21:11)
[2017-01-30] MEDS: ASPIRIN EC 325 MG TAB PO SCH (09:01)
[2017-01-30] MEDS: chlordiazePOXIDE 25 MG CAP PO SCH ×3 (09:01→21:11)
[2017-01-30] MEDS: THIAMINE HCL 100 MG TAB PO SCH (09:01)
[2017-01-30] MEDS: DOXYCYCLINE HYCLATE 100 MG CAP/TAB PO SCH ×2 (09:01→21:11)
[2017-01-30] MEDS: DILTIAZEM CD 120 MG CAP PO SCH (09:02)
[2017-01-30] MEDS: NICOTINE 21 MG/24 HR PATCH TD SCH (09:05)
[2017-01-30] MEDS: FLUTICASONE/SALMETER 250/50MCG DISKUS IH SCH ×2 (11:10→23:09)
[2017-01-30] MEDS ORDERED: FUROSEMIDE 20 MG/2 ML VIAL IVP ONE (14:22)
--- NOTE | 2017-01-30 14:29 | HOSPPROG ---
Hospitalist Progress Note Assessment/Plan: New patient encounter Atrial fibrillation with RVR - new diagnosis. TSH nl, valves ok on echo. Alcohol likely precipitating factor. Rate controlled, transitioned to oral dilt , HR ok. Chads-vasc 1. Has-bled score at least 3 and with etoh hx, I'm don't think he is a good candidate for anticoagulation. -D/C'd Lovenox -Daily ASA for cva prevention -cont oral dilt for rate control Acute hypoxemic respiratory failure - Suspect related to his COPD. CTA neg for PE. BNP not significantly elevated and no e/o HF on echo. now on RA. Minimal RUL consolidation on CTA, ?aspiration. -Cont Doxycycline -cont prednisone, nebs, advair -wean O2 as able Elevated troponin - suspect strain in setting of rapid a fib. Trending down. No CP. No WMA on echo. Rpt EKG now in NSR, non-ischemic, similar to priors. Alcohol intoxication with impending withdrawal - Starting to have increased tremor. -increase scheduled Librium -cont q4h CIWA, prn ativan -Pt states he wants to quit drinking Seizure disorder - cont dilantin, check level Hypertension - adequate control RLL pulmonary nodule - needs outpt f/u imaging Pedal Edema Full code Dispo - cont inpt Plan: -keep inpatient -increased Librium -Lasix IV x 1 -Decrease ASA to 81mg daily Subjective: acute wd symptoms, tremulous. REsp sx's are improving. No CP or SOB. + cough Objective: Vital Signs Temp Pulse Resp BP Pulse Ox 36.5 C 100 17 137/88 H 74 L 01/30/17 12:00 01/30/17 12:00 01/30/17 12:00 01/30/17 12:00 01/30/17 14:14 Laboratory Results 01/29/17 04:32 01/30/17 05:00 01/29/17 01/30/17 01/31/17 05:59 05:59 05:59 Intake Total 850 1450 Output Total 2575 600 Balance -1725 850 PT 14.0 SEC (12.0-15.0) 01/28/17 08:20 INR 1.06 (0.83-1.16) 01/28/17 08:20 - Physical Exam Constitutional: no apparent distress Eyes: PERRL, EOMI Ears, Nose, Mouth, Throat: moist mucous membranes, hearing normal Cardiovascular: regular rate and rhythym Respiratory: expiratory wheeze Gastrointestinal: normoactive bowel sounds, soft, non-tender abdomen Skin: warm Musculoskeletal: full muscle strength Neurologic: AAOx3 Psychiatric: interacting appropriately, not anxious, not encephalopathic, thought process linear ICD10 Worksheet Patient Problems: Problems Problem Status Onset Alcohol intoxication Acute Alcohol withdrawal Acute Atrial fibrillation with RVR Acute Abdominal pain Acute Alcohol abuse Acute COPD (chronic obstructive pulmonary disease) Acute Facial laceration Acute Laceration of eyebrow, left Acute Lactic acidosis Acute Multiple abrasions Acute Neck strain Acute Reversible airways disease Acute Seizure Acute Situational depression Acute Strain of mid-back Acute
[2017-01-31] MEDS: IPRATROPIUM/ALBUTEROL 3 ML DEYVIAL IH SCH ×4 (05:36→20:54)
[2017-01-31] MEDS: chlordiazePOXIDE 25 MG CAP PO SCH ×4 (05:50→21:08)
[2017-01-31] MEDS: LORazepam 1 MG TAB PO PRN ×6 (05:50→19:30)
[2017-01-31 06:08] LABS: PLATELET COUNT 127 10^3/uL (150-400)
[2017-01-31] MEDS ORDERED: CALCIUM GLUCONATE 50 ML IV ONE (07:49)
[2017-01-31] MEDS: DILTIAZEM CD 120 MG CAP PO SCH (08:40)
[2017-01-31] MEDS: DOXYCYCLINE HYCLATE 100 MG CAP/TAB PO SCH ×2 (08:41→21:08)
[2017-01-31] MEDS: THIAMINE HCL 100 MG TAB PO SCH (08:41)
[2017-01-31] MEDS: PHENYTOIN SODIUM EXTENDED 100 MG CAP PO SCH ×3 (08:41→21:08)
[2017-01-31] MEDS: predniSONE 20 MG TAB PO SCH ×2 (08:41→21:08)
[2017-01-31] MEDS: ASPIRIN 81 MG CHEWABLE TAB PO SCH (08:41)
[2017-01-31] MEDS: FLUTICASONE/SALMETER 250/50MCG DISKUS IH SCH ×2 (08:42→11:02)
[2017-01-31] MEDS: NICOTINE 21 MG/24 HR PATCH TD SCH (08:47)
--- NOTE | 2017-01-31 15:34 | HOSPPROG ---
Hospitalist Progress Note Assessment/Plan: Atrial fibrillation with RVR - new diagnosis. TSH nl, valves ok on echo. Alcohol likely precipitating factor. Rate controlled, transitioned to oral dilt , HR ok. Chads-vasc 1. Has-bled score at least 3 and with etoh hx, I'm don't think he is a good candidate for anticoagulation. -D/C'd Lovenox -Daily ASA for cva prevention -cont oral dilt for rate control Acute hypoxemic respiratory failure - Suspect related to his COPD. CTA neg for PE. BNP not significantly elevated and no e/o HF on echo. now on RA. Minimal RUL consolidation on CTA, ?aspiration. -Cont Doxycycline -cont prednisone, nebs, advair -wean O2 as able Elevated troponin - suspect strain in setting of rapid a fib. Trending down. No CP. No WMA on echo. Rpt EKG now in NSR, non-ischemic, similar to priors. Alcohol intoxication with impending withdrawal - Starting to have increased tremor. -increase scheduled Librium -cont q4h CIWA, prn ativan -Pt states he wants to quit drinking Seizure disorder - cont dilantin, check level Hypertension - adequate control RLL pulmonary nodule - needs outpt f/u imaging Pedal Edema Full code Dispo - cont inpt Plan: -keep inpatient -cont Librium, still in active WD -Increase Prednisone -Decrease ASA to 81mg daily D/W nurse Subjective: still feels SOB, but is on RA. No CP. Pedal edema is much better. Objective: Vital Signs Temp Pulse Resp BP Pulse Ox 36.7 C 82 20 136/84 H 93 01/31/17 11:21 01/31/17 11:21 01/31/17 11:21 01/31/17 11:21 01/31/17 11:21 Laboratory Results 01/31/17 05:12 01/31/17 05:12 01/30/17 01/31/17 02/01/17 05:59 05:59 05:59 Intake Total 1450 1700 Output Total 600 650 Balance 850 1050 PT 14.0 SEC (12.0-15.0) 01/28/17 08:20 INR 1.06 (0.83-1.16) 01/28/17 08:20 Physical Exam: Still feels SOB, but on RA NO CP - Physical Exam Constitutional: no apparent distress, appears nourished Eyes: PERRL, EOMI Ears, Nose, Mouth, Throat: moist mucous membranes, hearing normal Cardiovascular: regular rate and rhythym, No edema Respiratory: no respiratory distress, reduced air movement, expiratory wheeze Gastrointestinal: normoactive bowel sounds Genitourinary: no bladder fullness Skin: warm Musculoskeletal: full muscle strength Neurologic: AAOx3 Psychiatric: interacting appropriately, not anxious, not encephalopathic Lymph, Heme, Immunologic: No petechiae ICD10 Worksheet Patient Problems: Problems Problem Status Onset Alcohol intoxication Acute Alcohol withdrawal Acute Atrial fibrillation with RVR Acute Abdominal pain Acute Alcohol abuse Acute COPD (chronic obstructive pulmonary disease) Acute Facial laceration Acute Laceration of eyebrow, left Acute Lactic acidosis Acute Multiple abrasions Acute Neck strain Acute Reversible airways disease Acute Seizure Acute Situational depression Acute Strain of mid-back Acute
[2017-02-01] MEDS: IPRATROPIUM/ALBUTEROL 3 ML DEYVIAL IH SCH ×3 (05:25→14:58)
[2017-02-01] MEDS: LORazepam 1 MG TAB PO PRN ×8 (06:21→20:22)
[2017-02-01] MEDS: chlordiazePOXIDE 25 MG CAP PO SCH ×4 (06:21→20:23)
[2017-02-01] MEDS ORDERED: CALCIUM GLUCONATE 50 ML IV ONE (07:27)
[2017-02-01] MEDS: FLUTICASONE/SALMETER 250/50MCG DISKUS IH SCH ×2 (08:18→21:01)
[2017-02-01] MEDS: NICOTINE 21 MG/24 HR PATCH TD SCH (08:25)
[2017-02-01] MEDS: DILTIAZEM CD 120 MG CAP PO SCH (08:26)
[2017-02-01] MEDS: ASPIRIN 81 MG CHEWABLE TAB PO SCH (08:27)
[2017-02-01] MEDS: DOXYCYCLINE HYCLATE 100 MG CAP/TAB PO SCH ×2 (08:27→20:22)
[2017-02-01] MEDS: PHENYTOIN SODIUM EXTENDED 100 MG CAP PO SCH ×3 (08:27→20:21)
[2017-02-01] MEDS: THIAMINE HCL 100 MG TAB PO SCH (08:27)
[2017-02-01] MEDS: predniSONE 20 MG TAB PO SCH ×2 (08:28→20:22)
[2017-02-01] MEDS: HYDROCODONE/APAP 5/325 TAB PO PRN ×2 (11:01→17:07)
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
[2017-02-01] MEDS: PANTOPRAZOLE SODIUM 40 MG TAB PO SCH (15:42)
[2017-02-01] MEDS: CYCLOBENZAPRINE 10 MG TAB PO SCH ×2 (15:42→20:23)
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
[2017-02-02] MEDS: LORazepam 1 MG TAB PO PRN ×6 (03:53→20:41)
[2017-02-02] MEDS: HYDROCODONE/APAP 5/325 TAB PO PRN ×3 (03:53→18:30)
[2017-02-02] MEDS: PHENYTOIN SODIUM EXTENDED 100 MG CAP PO SCH ×3 (08:18→20:40)
[2017-02-02] MEDS: chlordiazePOXIDE 25 MG CAP PO SCH (08:18)
[2017-02-02] MEDS: THIAMINE HCL 100 MG TAB PO SCH (08:19)
[2017-02-02] MEDS: CYCLOBENZAPRINE 10 MG TAB PO SCH ×3 (08:20→20:39)
[2017-02-02] MEDS: ASPIRIN 81 MG CHEWABLE TAB PO SCH (08:20)
[2017-02-02] MEDS: PANTOPRAZOLE SODIUM 40 MG TAB PO SCH (08:20)
[2017-02-02] MEDS: predniSONE 20 MG TAB PO SCH ×2 (08:20→20:40)
[2017-02-02] MEDS: DILTIAZEM CD 120 MG CAP PO SCH (08:21)
[2017-02-02] MEDS: DOXYCYCLINE HYCLATE 100 MG CAP/TAB PO SCH ×2 (08:21→20:40)
[2017-02-02] MEDS: NICOTINE 21 MG/24 HR PATCH TD SCH (08:22)
[2017-02-02] MEDS: FLUTICASONE/SALMETER 250/50MCG DISKUS IH SCH ×2 (09:03→20:19)
[2017-02-02] MEDS ORDERED: CALCIUM GLUCONATE 50 ML IV ONE (09:11)
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
[2017-02-02] MEDS ORDERED: chlordiazePOXIDE 25 MG CAP PO SCH (21:00)
[2017-02-03] MEDS: HYDROCODONE/APAP 5/325 TAB PO PRN ×4 (05:17→22:02)
[2017-02-03] MEDS: LORazepam 1 MG TAB PO PRN ×3 (05:17→22:02)
[2017-02-03] MEDS: NICOTINE 21 MG/24 HR PATCH TD SCH (08:20)
[2017-02-03] MEDS: PHENYTOIN SODIUM EXTENDED 100 MG CAP PO SCH ×3 (08:22→20:14)
[2017-02-03] MEDS: predniSONE 20 MG TAB PO SCH (08:22)
[2017-02-03] MEDS: DILTIAZEM CD 120 MG CAP PO SCH (08:23)
[2017-02-03] MEDS: chlordiazePOXIDE 25 MG CAP PO SCH ×2 (08:23→20:14)
[2017-02-03] MEDS: THIAMINE HCL 100 MG TAB PO SCH (08:23)
[2017-02-03] MEDS: PANTOPRAZOLE SODIUM 40 MG TAB PO SCH (08:24)
[2017-02-03] MEDS: CYCLOBENZAPRINE 10 MG TAB PO SCH ×3 (08:24→20:14)
[2017-02-03] MEDS: DOXYCYCLINE HYCLATE 100 MG CAP/TAB PO SCH ×2 (08:24→20:14)
[2017-02-03] MEDS: ASPIRIN 81 MG CHEWABLE TAB PO SCH (08:24)
[2017-02-03] MEDS: FLUTICASONE/SALMETER 250/50MCG DISKUS IH SCH ×2 (08:29→20:01)
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
[2017-02-04] MEDS: LORazepam 1 MG TAB PO PRN ×4 (07:12→21:49)
[2017-02-04] MEDS: HYDROCODONE/APAP 5/325 TAB PO PRN ×3 (07:13→20:43)
[2017-02-04] MEDS ORDERED: CALCIUM GLUCONATE 50 ML IV ONE (07:27)
[2017-02-04] MEDS: PHENYTOIN SODIUM EXTENDED 100 MG CAP PO SCH ×3 (08:19→20:43)
[2017-02-04] MEDS: THIAMINE HCL 100 MG TAB PO SCH (08:19)
[2017-02-04] MEDS: NICOTINE 21 MG/24 HR PATCH TD SCH (08:19)
[2017-02-04] MEDS: CYCLOBENZAPRINE 10 MG TAB PO SCH ×3 (08:19→20:42)
[2017-02-04] MEDS: ASPIRIN 81 MG CHEWABLE TAB PO SCH (08:21)
[2017-02-04] MEDS: predniSONE 20 MG TAB PO SCH (08:22)
[2017-02-04] MEDS: DILTIAZEM CD 120 MG CAP PO SCH (08:22)
[2017-02-04] MEDS: DOXYCYCLINE HYCLATE 100 MG CAP/TAB PO SCH ×2 (08:22→20:43)
[2017-02-04] MEDS: PANTOPRAZOLE SODIUM 40 MG TAB PO SCH (08:22)
[2017-02-04] MEDS: chlordiazePOXIDE 25 MG CAP PO SCH ×2 (08:24→20:43)
[2017-02-04] MEDS: FLUTICASONE/SALMETER 250/50MCG DISKUS IH SCH ×2 (09:48→21:33)
--- NOTE | 2017-02-04 12:05 | HOSPPROG ---
Hospitalist Progress Note Assessment/Plan: DIAGNOSES: Atrial fibrillation with RVR - new diagnosis, now in SR. TSH nl, valves ok on echo. Alcohol likely precipitating factor. Rate controlled, transitioned to oral dilt, HR ok. Chads-vasc 1. Has-bled score at least 3 and with etoh hx, I' m don't think he is a good candidate for anticoagulation. -Lovenox D/C'd -Daily ASA for cva prevention -cont oral dilt for rate control Acute hypoxemic respiratory failure, resolved - Suspect related to his COPD. CTA neg for PE. Now on RA. Minimal RUL consolidation on CTA, ?aspiration. -Cont Doxycycline -cont prednisone, nebs, advair Prednisone - * as I review his chart it does not appear that he has actually gotten any bronchodilators, will review that with respiratory therapy And sure these actually getting some as he is still complaining of shortness of breath -Now on RA Alcohol intoxication and now acute withdrawal - still with anxiety and tremor. -continue Librium to 25mg PO BID -cont q4h CIWA, prn ativan -Pt states he wants to quit drinking: He was sober for 5 years until not long ago. He understands how alcohol will affect his other medical issues as well as his overall life, Feels confident that he quit Seizure disorder - cont dilantin -Dilantin level here 2 weeks ago was 14 and during an ER visit, however at the time of this admission was undetectable in undetectable again 2 days ago after 5 days of Three times daily therapy here; uncertain why the level is undetectable, question if alcohol is impacting his level or if some medication is affecting the test for it Severe chronic anxiety disorder -the patient has 67 visits to our ER since June of this year; he tells me that most of these are really driven by anxiety. This is a chronic disorder for him, made worse by Alcohol. He has used Klonopin with some benefit in the past but this was discontinued by chichi Tucker due to his drinking. I am not able to find out if he has been on any Antidepressants in the past for this, he says he has been on a number of medicines but does not recall what they are. States that he has a psychologist that he has not visited For some time now -he will probably need to continue on with benzodiazepine at the time of discharge but it would be best to look to get him on some antidepressant, and get him back to Regular visits with his psychologist as soon as possible Hypertension - adequate control Acute on Chronic back pain -[place] -Flexeril RLL pulmonary nodule - needs outpt f/u imaging Pedal Edema, s/p Lasix GERD: Wound Protonix to Pepcid at this time Weakness and Deconditioning -PT following -Still reports generalized weakness, although improving SUBJECTIVE: Ongoing anxiety and tremor unchanged from yesterday Dyspnea actually a bit worse today than yesterday OBJECTIVE Vitals reviewed: Stable without fever 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, my review: Sinus Exam: alert oriented Moderately anxious skin warm dry color ok resps not labored lungs very diminished but clear BSs heart regular abd soft nondistended nontender, bowel sounds present limbs warm, no edema iv site ok Laboratory data: Dam ilantin level undetectable ionized calcium still a bit low at 109 Objective: Vital Signs Temp Pulse Resp BP Pulse Ox 36.4 C 88 20 115/71 90 L 02/04/17 07:34 02/04/17 09:49 02/04/17 09:49 02/04/17 07:34 02/04/17 09:49 Laboratory Results 01/31/17 05:12 02/01/17 03:48 02/03/17 02/04/17 02/05/17 06:59 06:59 06:59 Intake Total 670 1980 Balance 670 1980 PT 14.0 SEC (12.0-15.0) 01/28/17 08:20 INR 1.06 (0.83-1.16) 01/28/17 08:20 - Time Spent With Patient Time Spent with Patient: greater than 35 minutes Time Spent with Patient: Greater than 35 minutes spent on this patients care, greater than 50% of time spent counseling, educating, and coordinating care regarding the above mentioned plan. ICD10 Worksheet Patient Problems: Problems Problem Status Onset Alcohol intoxication Acute Alcohol withdrawal Acute Atrial fibrillation with RVR Acute Abdominal pain Acute Alcohol abuse Acute COPD (chronic obstructive pulmonary disease) Acute Facial laceration Acute Laceration of eyebrow, left Acute Lactic acidosis Acute Multiple abrasions Acute Neck strain Acute Reversible airways disease Acute Seizure Acute Situational depression Acute Strain of mid-back Acute
[2017-02-04] MEDS: IPRATROPIUM/ALBUTEROL 3 ML DEYVIAL IH PRN (14:27)
[2017-02-05] MEDS: HYDROCODONE/APAP 5/325 TAB PO PRN ×3 (06:37→18:43)
[2017-02-05] MEDS: LORazepam 1 MG TAB PO PRN ×8 (06:37→23:13)
[2017-02-05] MEDS: IPRATROPIUM/ALBUTEROL 3 ML DEYVIAL IH PRN (08:08)
[2017-02-05] MEDS: FLUTICASONE/SALMETER 250/50MCG DISKUS IH SCH ×2 (08:09→23:13)
[2017-02-05] MEDS: predniSONE 20 MG TAB PO SCH (08:41)
[2017-02-05] MEDS: PHENYTOIN SODIUM EXTENDED 100 MG CAP PO SCH ×3 (08:41→21:11)
[2017-02-05] MEDS: NICOTINE 21 MG/24 HR PATCH TD SCH (08:41)
[2017-02-05] MEDS: chlordiazePOXIDE 25 MG CAP PO SCH ×2 (08:41→21:11)
[2017-02-05] MEDS: PANTOPRAZOLE SODIUM 40 MG TAB PO SCH (08:41)
[2017-02-05] MEDS: DOXYCYCLINE HYCLATE 100 MG CAP/TAB PO SCH (08:41)
[2017-02-05] MEDS: THIAMINE HCL 100 MG TAB PO SCH (08:41)
[2017-02-05] MEDS: DILTIAZEM CD 120 MG CAP PO SCH (08:41)
[2017-02-05] MEDS: CYCLOBENZAPRINE 10 MG TAB PO SCH ×3 (08:42→21:11)
[2017-02-05] MEDS: ASPIRIN 81 MG CHEWABLE TAB PO SCH (08:42)
--- NOTE | 2017-02-05 10:15 | HOSPPROG ---
Hospitalist Progress Note Assessment/Plan: DIAGNOSES: Microcytic anemia, new diagnosis now, worsening in hospital -suggest he has GI bleed, likely upper and likely from alcohol induced gastritis or ulcer, but tumors are also possible -suspect this is contributing to his dyspnea and lightheadedness; need to check iron studies and recheck hemoglobin, will need iron in potentially transfusion today Atrial fibrillation with RVR - new diagnosis, now in SR. TSH nl, valves ok on echo. Alcohol likely precipitating factor. Rate controlled, transitioned to oral dilt, HR ok. Chads-vasc 1. Has-bled score at least 3 and with etoh hx, I' m don't think he is a good candidate for anticoagulation. -Lovenox D/C'd -Daily ASA for cva prevention -cont oral dilt for rate control Acute hypoxemic respiratory failure, resolved - Suspect related to his COPD. CTA neg for PE. Now on RA. Minimal RUL consolidation on CTA, ?aspiration. -today is more dyspneic with exertion, however no cough in lungs clear no fever; ? If this is from his anemia - need to recheck hemoglobin, may need transfusion -will stop Doxycycline now after 7 days -will decrease dose of prednisone, continue nebs, advair Alcohol intoxication and now acute withdrawal -still with some tremor and anxiety, hard to separate out at this point what is withdrawal and what is his chronic anxiety -continue Librium to 25mg PO BID -cont q4h CIWA, prn ativan -Pt states he wants to quit drinking: He was sober for 5 years until not long ago. He understands how alcohol will affect his other medical issues as well as his overall life, Feels confident that he quit Seizure disorder - cont dilantin; no seizures here so far -Dilantin level here 2 weeks ago was 14 and during an ER visit, however at the time of this admission was undetectable in undetectable again 2 days ago after 5 days of Three times daily therapy here; uncertain why the level is undetectable, question if alcohol is impacting his level or if some medication is affecting the test for it -will recheck Dilantin level again tomorrow Severe chronic anxiety disorder -the patient has 67 visits to our ER since June of this year; he tells me that most of these are really driven by anxiety. This is a chronic disorder for him, made worse by Alcohol. He has used Klonopin with some benefit in the past but this was discontinued by chichi Tucker due to his drinking. On further review with him he now recalls that he had taken a number of different antidepressant meds as well as lithium, Depakote, and some new generation antipsychotics all of which did not help his anxiety -he will probably need to continue on with benzodiazepine at the time of discharge, and will need to get back in with his therapist him is not seen for 6 months Hypertension - adequate control Acute on Chronic back pain -[place] -Flexeril RLL pulmonary nodule - needs outpt f/u imaging Pedal Edema, s/p Lasix GERD: Wound Protonix to Pepcid at this time Weakness and Deconditioning -PT following -Still reports generalized weakness SUBJECTIVE: Ongoing anxiety and tremor unchanged from yesterday Dyspnea again worse today than yesterday Also today notes a sense of orthostasis and worsening disequilibrium when walking compared to yesterday OBJECTIVE Vitals reviewed: Stable without fever 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, 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: Sinus Exam: alert oriented Moderately anxious skin warm dry color ok resps not labored lungs very diminished but clear BSs heart regular abd soft nondistended nontender, bowel sounds present limbs warm, no edema iv site ok Objective: Vital Signs Temp Pulse Resp BP Pulse Ox 36.7 C 79 16 102/58 L 91 L 02/05/17 08:00 02/05/17 08:09 02/05/17 08:09 02/05/17 08:00 02/05/17 08:09 Laboratory Results 01/31/17 05:12 02/01/17 03:48 02/04/17 02/05/17 02/06/17 06:59 06:59 06:59 Intake Total 1979 1400 Balance 1979 1400 PT 14.0 SEC (12.0-15.0) 01/28/17 08:20 INR 1.06 (0.83-1.16) 01/28/17 08:20 - Time Spent With Patient Time Spent with Patient: greater than 35 minutes Time Spent with Patient: Greater than 35 minutes spent on this patients care, greater than 50% of time spent counseling, educating, and coordinating care regarding the above mentioned plan. ICD10 Worksheet Patient Problems: Problems Problem Status Onset Alcohol intoxication Acute Alcohol withdrawal Acute Atrial fibrillation with RVR Acute Abdominal pain Acute Alcohol abuse Acute COPD (chronic obstructive pulmonary disease) Acute Facial laceration Acute Laceration of eyebrow, left Acute Lactic acidosis Acute Multiple abrasions Acute Neck strain Acute Reversible airways disease Acute Seizure Acute Situational depression Acute Strain of mid-back Acute
[2017-02-05 10:43] LABS: PLATELET COUNT 357 10^3/uL (150-400)
--- NOTE | 2017-02-05 15:32 | ASMTCMCOM ---
CM Note CM Note Notes: Chart reviewed. Per nursing patient should be ready for discharge. His options are the [facility] versus retrieving check from long-term and paying for hotel out of pocket. I attempted to have him sign IM and he reports he wants to see MD as he feels unwell. Discussed with Dr. Ga. Patient to remain hospitalized and is transferred to medical surgical floor. CM to follow. Date Signed: 02/05/2017 03:32 PM Electronically Signed By:Ana Quiros RN
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
[2017-02-06] MEDS: LORazepam 1 MG TAB PO PRN ×9 (01:23→21:27)
[2017-02-06] MEDS: HYDROCODONE/APAP 5/325 TAB PO PRN ×3 (03:21→15:24)
[2017-02-06 06:07] LABS: PLATELET COUNT 361 10^3/uL (150-400)
[2017-02-06] MEDS: chlordiazePOXIDE 25 MG CAP PO SCH ×2 (07:39→21:27)
[2017-02-06] MEDS: DILTIAZEM CD 120 MG CAP PO SCH (07:39)
[2017-02-06] MEDS: ASPIRIN 81 MG CHEWABLE TAB PO SCH (07:40)
[2017-02-06] MEDS: predniSONE 20 MG TAB PO SCH (07:40)
[2017-02-06] MEDS: PANTOPRAZOLE SODIUM 40 MG TAB PO SCH (07:40)
[2017-02-06] MEDS: PHENYTOIN SODIUM EXTENDED 100 MG CAP PO SCH ×3 (07:41→21:27)
[2017-02-06] MEDS: CYCLOBENZAPRINE 10 MG TAB PO SCH ×3 (07:41→21:27)
[2017-02-06] MEDS: THIAMINE HCL 100 MG TAB PO SCH (07:41)
[2017-02-06] MEDS: NICOTINE 21 MG/24 HR PATCH TD SCH (07:42)
[2017-02-06] MEDS: FLUTICASONE/SALMETER 250/50MCG DISKUS IH SCH ×2 (10:00→21:07)
[2017-02-06] MEDS ORDERED: PEG 3350/NA SULF,BICARB,CL/KCL (GAVILYTE-G) 4000 ML BTL PO ONE (12:33)
[2017-02-06] MEDS ORDERED: METOCLOPRAMIDE 10 MG/2 ML VIAL IVP PRN (12:33)
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
--- NOTE | 2017-02-06 16:41 | HOSPPROG ---
Hospitalist Progress Note Assessment/Plan: DIAGNOSES: Microcytic anemia with iron deficiency, new diagnosis now -decrease of hemoglobin in early portion of this hospitalization likely due to dilution with IV fluids -suggest he has GI bleed which appears to likely be slow bleed potentially from a tumor -have contacted Dr. Royal and we are setting him up for upper and lower endoscopy a.m. February 07 Atrial fibrillation with RVR - new diagnosis, now in SR. TSH nl, valves ok on echo. Alcohol likely precipitating factor. Rate controlled, transitioned to oral dilt, HR ok. Chads-vasc 1. Has-bled score at least 3 and with etoh hx, I' m don't think he is a good candidate for anticoagulation. -Lovenox D/C'd -Daily ASA for cva prevention -cont oral dilt for rate control Acute hypoxemic respiratory failure, resolved - Suspect related to his COPD. CTA neg for PE. Now on RA. Minimal RUL consolidation on CTA, ?aspiration. -today is more dyspneic with exertion, however no cough in lungs clear no fever; ? If this is from his anemia - need to recheck hemoglobin, may need transfusion -status post course of Doxycycline -continue slow taper of prednisone, continue nebs, advair Alcohol intoxication and now acute withdrawal -better today -decrease Librium to 10 mg twice daily at this time -cont q4h CIWA, prn ativan -Pt states he wants to quit drinking: He was sober for 5 years until not long ago. He understands how alcohol will affect his other medical issues as well as his overall life, Feels confident that he quit Seizure disorder - cont dilantin; no seizures here so far -Dilantin level here 2 weeks ago was 14 and during an ER visit, however at the time of this admission was undetectable and remains undetectable on 2 repeat studies despite being given 100 mg three times daily; unclear to me why his level is undetectable but he has not ceased yet despite some mild alcohol withdrawal -will try and check with pathologist regarding anything that would interfere with Dilantin test Severe chronic anxiety disorder -the patient has 67 visits to our ER since June of this year; he tells me that most of these are really driven by anxiety. This is a chronic disorder for him, made worse by Alcohol. He has used Klonopin with some benefit in the past but this was discontinued by chichi Tucker due to his drinking. On further review with him he now recalls that he had taken a number of different antidepressant meds as well as lithium, Depakote, and some new generation antipsychotics all of which did not help his anxiety -he will probably need to continue on with benzodiazepine at the time of discharge, and will need to get back in with his therapist him is not seen for 6 months Hypertension - adequate control RLL pulmonary nodule - needs outpt f/u imaging Pedal Edema, s/p Lasix GERD: Wound Protonix to Pepcid at this time Weakness and Deconditioning -improving nicely here so far -Still reports generalized weakness SUBJECTIVE: Feels better overall today Less anxious less tremor No signs of bleeding Steady on his feet OBJECTIVE Vitals reviewed: Stable without fever Customer Retention Specialist, my review: Sinus Exam: alert oriented Moderately anxious skin warm dry color ok resps not labored lungs very diminished but clear BSs heart regular abd soft nondistended nontender, bowel sounds present limbs warm, no edema iv site ok Objective: Vital Signs Temp Pulse Resp BP Pulse Ox 37 C 78 16 127/75 H 95 02/06/17 07:28 02/06/17 07:28 02/06/17 07:28 02/06/17 07:28 02/06/17 07:28 Laboratory Results 02/06/17 05:33 02/06/17 05:33 02/05/17 02/06/17 02/07/17 06:59 06:59 06:59 Intake Total 1400 1000 Balance 1400 1000 PT 14.0 SEC (12.0-15.0) 01/28/17 08:20 INR 1.06 (0.83-1.16) 01/28/17 08:20 - Time Spent With Patient Time Spent with Patient: greater than 35 minutes Time Spent with Patient: Greater than 35 minutes spent on this patients care, greater than 50% of time spent counseling, educating, and coordinating care regarding the above mentioned plan. ICD10 Worksheet Patient Problems: Problems Problem Status Onset Alcohol intoxication Acute Alcohol withdrawal Acute Atrial fibrillation with RVR Acute Abdominal pain Acute Alcohol abuse Acute COPD (chronic obstructive pulmonary disease) Acute Facial laceration Acute Laceration of eyebrow, left Acute Lactic acidosis Acute Multiple abrasions Acute Neck strain Acute Reversible airways disease Acute Seizure Acute Situational depression Acute Strain of mid-back Acute
[2017-02-06] MEDS: SODIUM FERRIC GLUCONAT/SUCROSE 125 MG in NS 100 ML IV SCH (17:26)
[2017-02-07] MEDS: LORazepam 1 MG TAB PO PRN ×4 (00:28→10:28)
[2017-02-07] MEDS: HYDROCODONE/APAP 5/325 TAB PO PRN ×2 (00:29→09:47)
[2017-02-07] MEDS ORDERED: MIDAZOLAM 2 MG/2 ML VIAL ONE (07:13)
[2017-02-07] MEDS ORDERED: LIDOCAINE 2% 5 ML SDV ONE (07:13)
[2017-02-07] MEDS ORDERED: PROPOFOL/EMULSION 500 MG/50 ML BOTTLE IV ONE (07:14)
--- NOTE | 2017-02-07 07:48 | PDANEPAE ---
ANE History of Present Illness 51 year old male for egd and colonoscopy for anemia ANE Past Medical History - Cardiovascular History Hx Hypertension: Yes Hx Arrhythmias: No Hx Chest Pain: No Hx Coronary Artery / Peripheral Vascular Disease: No Hx CHF / Valvular Disease: No Hx Palpitations: No - Pulmonary History Hx COPD: Yes Hx Asthma/Reactive Airway Disease: No Hx Recent Upper Respiratory Infection: Yes Hx Oxygen in Use at Home: No Hx Sleep Apnea: No Sleep Apnea Screening Result - Last Documented: Negative Pulmonary History Comment: Bronchitis and Pneumonia in May 2016. - Neurologic History Hx Cerebrovascular Accident: No Hx Seizures: No Hx Dementia: No - Endocrine History Hx Diabetes: No - Renal History Hx Renal Disorders: No - Liver History Hx Hepatic Disorders: No - Neurological & Psychiatric Hx Hx Neurological and Psychiatric Disorders: No - Cancer History Hx Cancer: No - Congenital Disorder History Hx Congenital Disorders: No - GI History Hx Gastrointestinal Disorders: No - Other Health History Other Health History: Full dentures - Chronic Pain History Chronic Pain: Yes - Surgical History Prior Surgeries: Cholecystectomy 1992. gastric bypass 1999. 3 spine fusions L2 -S1 2000, 2013, 2016 ANE Review of Systems Review of Systems: ANE Patient History - Allergies Allergies/Adverse Reactions: gabapentin Allergy (Verified 01/27/17 18:16) bee stings Allergy (Severe, Uncoded 01/19/17 02:12) Anaphylaxis - Home Medications Home Medications: Fluticasone/Salmeter 250/50Mcg [Advair 250/50 (*)] 1 puffs IH BID 01/28/17 [ Last Taken 01/27/17 09:00] - NPO status NPO Since - Liquids (Date): 02/06/17 NPO Since - Liquids (Time): 12:45 NPO Since - Solids (Date): 02/06/17 NPO Since - Solids (Time): 12:45 - Smoking Hx Smoking Status: Heavy smoker - Family Anes Hx Family Hx Anesthesia Complications: none ANE Labs/Vital Signs - Labs Result Diagrams: 02/06/17 05:33 02/06/17 05:33 - Vital Signs Blood Pressure: 126/75 Heart Rate: 76 Respiratory Rate: 16 O2 Sat (%): 94 Height: 195.58 cm Weight: 112.6 kg ANE Physical Exam - Airway Mallampati Score: Class 2 Mouth exam: dentures - ASA Status ASA Status: II ANE Anesthesia Plan Anesthesia Plan: MAC
[2017-02-07] MEDS ORDERED: NALOXONE HCL 0.4 MG/ML INJ IVP PRN (07:49)
--- NOTE | 2017-02-07 07:49 | POSTANESTH ---
Post Anesthetic Evaluation Respiratory Status: Normal, Stable Level of Consciousness/Mental Status: Can Participate in Eval Pain Control: Adequate, Prn Tx Ordered Nausea/Vomiting Control: Adequate, Prn Tx Ordered Complications Possibly Related to Anesthesia: None Noted
--- NOTE | 2017-02-07 08:00 | POSTOPPROG ---
Post Op Note Date of Operation: 02/07/17 Surgeon: Declan Royal Anesthesia: IV Sedation Pre-op Diagnosis: Iron deficiency anemia Post-op Diagnosis: S/P gastric bypass surgery. Poor bowel prep but no large colon lesions Inf/Abcess present in the surg proc area at time of surgery?: No Depth: Superfical (Skin SQ)
--- NOTE | 2017-02-07 08:02 | SOAPPROG ---
SOAP Progress Note Assessment/Plan: Assessment:Panendoscopy for MICHEAL shows UGI anatomy c/w Nelson-en-Y. Gastric pH 2. Biopsies taken to r/o celiac. Colonoscopy with woefully poor prep but able to reach the cecum and exclude large lesions. Suspect MICHEAL is due to malabsorption from gastric bypass. Patient should be on supplemental iron, would give parentally initially. Plan: 02/07/17 08:00 02/07/17 08:02 Objective: Vital Signs Temp Pulse Resp BP Pulse Ox 36.9 C 76 16 126/75 H 94 02/07/17 06:58 02/07/17 07:48 02/07/17 07:48 02/07/17 07:48 02/07/17 07:48 Laboratory Results 02/06/17 05:33 02/06/17 05:33 02/06/17 02/07/17 02/08/17 05:59 05:59 05:59 Intake Total 1000 Balance 1000 PT 14.0 SEC (12.0-15.0) 01/28/17 08:20 INR 1.06 (0.83-1.16) 01/28/17 08:20 ICD10 Worksheet Patient Problems: Problems Problem Status Onset Alcohol intoxication Acute Alcohol withdrawal Acute Atrial fibrillation with RVR Acute Abdominal pain Acute Alcohol abuse Acute COPD (chronic obstructive pulmonary disease) Acute Facial laceration Acute Laceration of eyebrow, left Acute Lactic acidosis Acute Multiple abrasions Acute Neck strain Acute Reversible airways disease Acute Seizure Acute Situational depression Acute Strain of mid-back Acute
--- NOTE | 2017-02-07 08:10 | GIREPORT ---
[facility] Surgical Services - Endoscopy Department Patient Name: Jonathan Hogan Procedure Date: 02/07/2017 7:21 AM Patient Type: Inpatient Attending MD/ ER Physician: Declan Royal MD Procedure: Upper GI endoscopy Indications: Iron deficiency anemia Providers: Declan Royal MD Medicines: General Anesthesia Complications: No immediate complications. Description of Procedure: After obtaining informed consent, the endoscope was passed under direct vision. Throughout the procedure, the patient's blood pressure, pulse, and oxygen saturations were monitored continuously. The Endoscope was intro duced through the mouth, and advanced to the afferent jejunal loop. The upper GI endoscopy was accomplished with ease. The patient tolerated the procedu re well. Findings: Evidence of a Nelson-en-Y gastrojejunostomy was found. The gastrojejunal anastomosis was characterized by healthy appearing mucosa. The jejunoje junal anastomosis was characterized by healthy appearing mucosa. The hzawmkia-np-dlbyyqx limb was examined. Biopsies for histology were take n with a cold forceps for evaluation of celiac disease. Biopsies were chase en with a cold forceps for Helicobacter pylori testing using CLOtest. Nereyda stephani pH 2. The exam was otherwise without abnormality. Estimated Blood Loss: Estimated blood loss: none. Post Op Diagnosis: - Nelson-en-Y gastrojejunostomy with gastrojejunal anastomosis characteri zed by healthy appearing mucosa. Biopsied. - The examination was otherwise normal. Recommendation: - Await pathology results. - Return patient to [facility] for ongoing care. - Resume previous diet. - Recommend an iron supplement. Attending Participation: I personally performed the entire procedure. Declan Royal MD Declan Royal MD 02/07/2017 8:09:36 AM This report has been signed electronicallyRobert MD Lele Number of Addenda: 0 Note Initiated On: 02/07/2017 7:21 AM [email or web address]
--- NOTE | 2017-02-07 08:13 | GIREPORT ---
[facility] Surgical Services - Endoscopy Department Patient Name: Jonathan Hogan Procedure Date: 02/07/2017 7:19 AM Patient Type: Inpatient Attending MD/ ER Physician: Declan Royal MD Procedure: Colonoscopy Indications: Iron deficiency anemia Providers: Declan Royal MD Medicines: Propofol per Anesthesia Complications: No immediate complications. Description of Procedure: After obtaining informed consent, the scope was passed under direct vis ion. Throughout the procedure, the patient's blood pressure, pulse, and oxyg en saturations were monitored continuously. The Colonoscope was introduced through the anus and advanced to the cecum, identified by appendiceal orifice and ileocecal valve. The colonoscopy was performed with ease. T he colonoscopy was performed with moderate difficulty due to poor bowel pr ep with stool present. Successful completion of the procedure was aided by lavage. The patient tolerated the procedure well. The quality of the florian wel preparation was adequate to identify large tumors only. Findings: No obvious tumors. The exam was otherwise without abnormality. Estimated Blood Loss: Estimated blood loss: none. Post Op Diagnosis: - The examination was otherwise normal. - No specimens collected. Recommendation: - Return patient to hospital [facility] for ongoing care. - Resume regular diet. Attending Participation: I personally performed the entire procedure. Declan Royal MD Declan Royal MD 02/07/2017 8:12:46 AM This report has been signed electronicallyRobert MD Lele Number of Addenda: 0 Note Initiated On: 02/07/2017 7:19 AM Total Procedure Duration Time 0 hours 14 minutes 7 seconds [email or web address]
[2017-02-07] MEDS ORDERED: PROPOFOL 200 MG/20 ML VIAL ONE (08:16)
[2017-02-07] MEDS: FLUTICASONE/SALMETER 250/50MCG DISKUS IH SCH (08:23)
[2017-02-07 09:08] VITALS: RESP 18
[2017-02-07] MEDS ORDERED: SODIUM FERRIC GLUCONAT/SUCROSE 125 MG in NS 100 ML IV SCH (09:30)
[2017-02-07] MEDS: chlordiazePOXIDE 25 MG CAP PO SCH (09:47)
[2017-02-07] MEDS: predniSONE 20 MG TAB PO SCH (09:48)
[2017-02-07] MEDS: THIAMINE HCL 100 MG TAB PO SCH (09:48)
[2017-02-07] MEDS: PANTOPRAZOLE SODIUM 40 MG TAB PO SCH (09:48)
[2017-02-07] MEDS: CYCLOBENZAPRINE 10 MG TAB PO SCH (09:49)
[2017-02-07] MEDS: ASPIRIN 81 MG CHEWABLE TAB PO SCH (09:49)
[2017-02-07] MEDS: PHENYTOIN SODIUM EXTENDED 100 MG CAP PO SCH (09:49)
[2017-02-07] MEDS: DILTIAZEM CD 120 MG CAP PO SCH (09:49)
[2017-02-07] MEDS: NICOTINE 21 MG/24 HR PATCH TD SCH (09:50)
[2017-02-07 10:13] VITALS: TEMP 98.2
[2017-02-07] MEDS: SODIUM FERRIC GLUCONAT/SUCROSE 125 MG in NS 100 ML IV SCH (10:29)
--- NOTE | 2017-02-07 10:36 | ASMTCMCOM ---
CM Note CM Note Notes: Spoke with Bhargav Silva NP who states patient will most likely be d/c'ed today. Spoke with patient about going to the [facility] shelters and getting started with "the [facility]" program. We also discussed the [facility] as an option for continuing detox and having a place to stay while patient looks for options. Patient was given handouts on programs and their phone numbers as well as a bus pass to get him where he wants to snf in [place].Patient was reminded he can call the snf and talk to Osbaldo Brewster about his check, since he had it mailed to their address. Osbaldo stated yesterday he would watch for it but so far there is no mail for the patient. CM available if other D/C needs arise. Date Signed: 02/07/2017 10:36 AM Electronically Signed By:Makenzie Greenfield LCSW
[2017-02-07 11:10] VITALS: BP 137/75; PULSE 86; O2SAT 96
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
--- NOTE | 2017-02-07 17:54 | GDS ---
[f rep st] DISCHARGE SUMMARY DISCHARGE DIAGNOSES: 1. Iron-deficiency anemia. 2. Anxiety disorder. 3. Atrial fibrillation with rapid ventricular response. 4. Acute hypoxemic respiratory failure. 5. Acute alcohol intoxication. 6. Seizure disorder. 7. Hypertension. 8. Right lower lobe pulmonary nodule. CONSULTATIONS: Dr. Royal of Gastroenterology. STUDIES AND PROCEDURES DONE: 1. EGD. 2. Colonoscopy. 3. CT angio of the chest. 4. Echocardiogram. PHYSICAL EXAM: GENERAL: The patient is alert. VITAL SIGNS: Afebrile at 36.8, pulse 86, respirator y rate is 18, blood pressure is 137/75. He is saturating 96% on room air. I have seen and evaluated the patient on the day of discharge. HOSPITAL COURSE: The patient is a 51-year-old male, who presented to the hospital with complaints of chest pain and syncope. He was evaluated and diagnosed with: 1. Severe and chronic anxiety disorder. The patient has a therapist whom he is active with at [facility]. He will continue with this work at the time of disposition, and wi ll continue treatment. 2. Microcytic anemia with iron deficiency. He did receive a colonoscopy as well as EGD during this hospitalization. No identifiable source was provided for his condition. He received IV iron infusio ns, which he likely will require in the outpatient setting. He will follow up with Dr. Royal for fu rther IV initiation. 3. Atrial fibrillation with RVR. The patient is in sinus rhythm at the time of disposition. He is not compliant with his medications, and is not a good candidate for anticoagulation. He will continu e on daily aspirin at the time of disposition. 4. Acute hypoxemic respiratory failure. This has resolved. He is saturating appropriately on room air. He did receive a course of doxycycline during this hospitalization. 5. Alcohol intoxication. He was placed on the CIWA during this hospital course. He was sober at th e time of disposition. He states that he wishes to continue his sobriety. He will be discharged to the [facility] for further withdrawal and counseling. 6. Seizure disorder. There has been no seizure activity during this hospitalization. The patient h as been provided his Dilantin during this hospital course, and will be given a prescription at the ti me of disposition. 7. Right lower lobe pulmonary nodule. This requires outpatient followup imaging. He is aware of th is and will continue evaluation with his primary care physician at [facility]. DISPOSITION: I have discussed the patient's discharge with Social Work; they have spent a lengthy am ount of time with the patient, providing him resources and situational counseling. He will be discha rged to the street as he has been banned from the alf for 30 days secondary to inappropriate beha vior. He will follow up at [facility] on 02/13/2017. He has been provided prescriptions at the time of disposition to manage his medical conditions until his followup primary care appointment. P rescriptions for diltiazem, [place], Protonix, Dilantin have been provided at the time of disposition. I spent greater than 35 minutes in the care, coordination, and management of this patient's discharge . /[id number]/MODL
== END 2017-02-07 13:20 | disposition home or self-care (01) | DRG 308 ==
LOC: EDUNIT# → OBSVTOIN 01-28 04:04 → F2W 01-28 04:41 → F3E 02-05 10:44
PROVIDERS: ADMIT Family Medicine; ATTEND Family Medicine
PROC: 0DJD8ZZ Inspection of Lower Intestinal Tract, Via Natural or Artificial Opening Endoscopic (ICD-10-PCS; principal; 2017-02-07 07:30)
PROC: 0DBA8ZX Excision of Jejunum, Via Natural or Artificial Opening Endoscopic, Diagnostic (ICD-10-PCS; principal; 2017-02-07 07:30)
DX: I48.91 Unspecified atrial fibrillation (principal); J96.01 Acute respiratory failure with hypoxia; F10.239 Alcohol dependence with withdrawal, unspecified; D50.9 Iron deficiency anemia, unspecified; F10.229 Alcohol dependence with intoxication, unspecified; E87.6 Hypokalemia; E83.42 Hypomagnesemia; F41.9 Anxiety disorder, unspecified; G40.909 Epilepsy, unspecified, not intractable, without status epilepticus; I10 Essential (primary) hypertension; R91.1 Solitary pulmonary nodule; J44.9 Chronic obstructive pulmonary disease, unspecified; G89.29 Other chronic pain; Y90.8 Blood alcohol level of 240 mg/100 ml or more; Z72.0 Tobacco use; Z59.0 Homelessness
CPT/HCPCS: 80307; 96374; 97161-GP; G0480; G8978-GP-CI; G8979-GP-CI; G8980-GP-CI; J0610; J1650; J1940; J2060; J2250; J2560; J2704; J2916; J3475; Q9967

== ENCOUNTER 2017-02-08 09:13 | Emergency (ER) | payer OTHER, MEDICAID ==
[2017-02-08 09:25] VITALS: RESP 16
--- NOTE | 2017-02-08 09:37 | EDPHY ---
H & P Stated Complaint: Fall yesterday, bilat leg pain , L rib pain, dcd 02/07 [facility] - Personal History Tetanus Vaccine Date: 2015 - Medical/Surgical History Hx Asthma: No Hx Chronic Respiratory Disease: Yes Hx Diabetes: No Hx Cardiac Disease: No Hx Renal Disease: No Hx Cirrhosis: No Hx Alcoholism: Yes Hx HIV/AIDS: No Hx Splenectomy or Spleen Trauma: No Other PMH: PMH: htn, depression/anxiety,chronic back pain. [id number]-fusion, rolanda,left knee meniscus repair,gastric bypass, COPD, epilepsy, ETOH abuse - Social History Smoking Status: Heavy smoker Time Seen by Provider: 02/08/17 09:17 HPI/ROS: CHIEF COMPLAINT: Left knee and left rib pain post mechanical fall HISTORY OF PRESENT ILLNESS: 51-year-old homeless male was discharged in [facility] yesterday and because of multiple issues related to his discharge he subsequently slept underneath a bridge last night after discharge. States that as he was descending underneath the bridge he slipped on the rocks impacted his left knee and his left ribs, spent the night sleeping to the bridge. He did not fall a significant height, did not fall into water, slid about 2 feet on loose rocks. This morning a bystander was walking their dog and he yelled out to them and they called 911. He currently states that he is unable to ambulate secondary to acute left knee pain and abrasion. This was a mechanical episode last evening, not a syncopal episode. He has full recollection of all events. He denies : head injury, chest pain, dyspnea, alcohol use at time of incident or recent alcohol use, seizure, incontinence, midline C-spine pain, peripheral paresthesia, weakness, numbness REVIEW OF SYSTEMS: A ten point review of systems was performed and is negative with the exception of the items mentioned in the HPI PAST MEDICAL/SURGICAL HISTORY: Past medical history significant for anemia, anxiety, atrial fibrillation, seizure disorder, hypertension SOCIAL HISTORY: denies alcohol use at time of incident. Homeless PHYSICAL EXAM 1) GENERAL: Well-developed, well-nourished, alert and oriented. Appears to be in no acute distress. Answering questions appropriately. 2) HEAD: Normocephalic, atraumatic 3) HEENT: Pupils equal, round, reactive to light bilaterally. Negative Horners. Nasopharynx, oropharynx, clear. No deformity or angulation of nose. No septal hematoma. No rhinorrhea. No oral trauma. Ears bilaterally with normal tympanic membranes. No hemotympanum. No fluid or blood in the external auditory canal. No raccoon eyes. No Rosenbaum sign. Teeth are normally aligned with no gross malocclusion, TMJ bilaterally nontender, facial bones nontender including the zygomatic arch, maxilla mandible. 4) NECK: No cervical collar is on. Posterior cervical spine is nontender, no stepoff, no effusion. Full range of motion which does not elicit any midline cervical spine pain, no posterior midline tenderness, no step-off. 5) LUNGS: Clear to auscultation bilaterally, no wheezes, no rhonchi, no retractions. No obvious signs of trauma. He is tender to palpation left lower ribs anterior axillary line No flaring, no grunting. Moving symmetrically. No crepitus. 6) HEART: Regular rate and rhythm, 7) ABDOMEN: No guarding, no rebound, no focal tenderness, no peritoneal signs, no signs of trauma, no ecchymosis 8) MUSCULOSKELETAL: Left lower extremity: Abrasion to left knee with tenderness to the left patella. Proximally distally nontender including left hip. No shortening no malrotation. Soft compartments. DP PT pulses present and brisk. Normal color normal temperature distally. Right lower extremity: No tenderness to palpation , no shortening no malrotation, soft compartments, pain with range of motion to the right greater trochanteric region,, right knee nontender. Subacute healing abrasions noted. DP PT pulses present and brisk. Normal color normal temperature distally. Soft compartments 9) BACK: No midline vertebral tenderness, no fluctuance, no step-off, no obvious trauma, no visual or palpable abnormality. 10) SKIN: No laceration. DIFFERENTIAL DIAGNOSIS: In no particular include but limited to fracture, sprain, strain, dislocation, compartment syndrome (Fred,Damaris Nayely) Constitutional: Initial Vital Signs Temperature (C) 36.1 C 02/08/17 09:22 Heart Rate 88 02/08/17 09:22 Respiratory Rate 16 02/08/17 09:22 Blood Pressure 158/101 H 02/08/17 09:22 O2 Sat (%) 94 02/08/17 09:22 O2 Delivery Mode Room Air Allergies/Adverse Reactions: gabapentin Allergy (Verified 01/27/17 18:16) bee stings Allergy (Severe, Uncoded 01/19/17 02:12) Anaphylaxis Home Medications: Medication Instructions Recorded Albuterol [Proventil Inhaler HFA 1 - 2 puffs IH Q4H #1 mdi 01/19/17 (*)] Fluticasone/Salmeter 250/50Mcg 1 puffs IH BID 01/28/17 [Advair 250/50 (*)] Aspirin [Aspirin 81mg (*)] 81 mg PO DAILY tab.chew 02/07/17 Diltiazem Cd [Cardizem ER 120 MG 120 mg PO DAILY #8 cap 02/07/17 (*)] Hydrocodone/APAP 5/325 [[place] 1 - 2 tab PO TID PRN #10 tab 02/07/17 5/325 (*)] Pantoprazole Sodium [Protonix 40mg 40 mg PO DAILY #8 tab 02/07/17 (*)] Phenytoin Sodium Extended 100 mg PO TID #21 cap 02/07/17 [Dilantin (*)] Thiamine HCl [Vitamin B-1] 100 mg PO DAILY tab 02/07/17 clonazePAM [klonoPIN (*)] 1 mg PO BID #10 tab 02/07/17 Medical Decision Making ED Course/Re-evaluation: 10:30 a.m.: I have reviewed the patient's old medical records and discussed case with secondary supervising physician Dr. Kya Blum who also examined the patient. At this time an ambulation challenge was obtained emergency department he was able to ambulate a few steps with assistance from 2 staff members however complained of significant left knee pain. 11:30 a.m.: Patient has been re-evaluated with serial exams. marketing manager health communications has been closely involved with this case and has spoke with the patient. At this time we cannot safely discharge the patient from the emergency department, he is not allowed to go to the intermediate at this time, he is necessitating assistance with ambulation. I have reviewed his x-ray showing no definitive acute osseous abnormality. Plan will be admission. I consulted with hospitalist Lynette at this time, admit to Dr. Nascimento. 1:04 p.m.: Patient declining admission, have observed him ambulating at this time without assistance with stable steady gait. He was offered crutches but was observed throwing these on the floor. The case reviewer has been closed involved, he is not allowed to intermediate , he [facility] not [facility]. He requests a bus pass and he states "I will figure it out ". I observed him walking out emergency department stable steady gait without assistance. (Damaris Ibarra) The patient was evaluated and managed by the physician certified ophthalmic surgical assistant. I have reviewed this chart and I agree with the findings and plan of care as documented , as indicated by my signature. I am the secondary supervising physician. ( Kya Blum) - Data Points Laboratory Results: Laboratory Results 02/08/17 10:30 02/08/17 10:30 Medications Given: Discontinued Medications Ibuprofen (Motrin) 600 mg PO ONCE ONE Stop: 02/08/17 11:59 Last Admin: 02/08/17 12:02 Dose: 600 mg Departure - Departure Disposition: [facility] Inpatient Acute Clinical Impression: Left anterior knee pain Condition: Fair Instructions: Knee Pain (ED) Additional Instructions: Return to the ER if you are unable to ambulate or care for herself Referrals: [facility],. [Clinic] - 1-2 days without fail
[2017-02-08 10:39] LABS: PLATELET COUNT 426 10^3/uL (150-400)
[2017-02-08 10:54] LABS: CREATINE KINASE 153 IU/L (0-224)
[2017-02-08] MEDS ORDERED: IBUPROFEN 600 MG TAB PO ONE ×2 (11:58→12:00)
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
[2017-02-08 12:43] VITALS: TEMP 98.6; O2SAT 95
[2017-02-08 12:59] VITALS: BP 135/90; PULSE 87
[2017-02-08] MEDS ORDERED: ONDANSETRON DISINTEGRATING 4 MG TAB PO PRN (13:01)
[2017-02-08] MEDS ORDERED: OXYCODONE/APAP 5/325 TAB PO PRN (13:01)
[2017-02-08] MEDS ORDERED: ACETAMINOPHEN 325 MG TAB PO PRN (13:01)
[2017-02-08] MEDS ORDERED: ONDANSETRON 4 MG/2 ML VIAL IVP PRN (13:01)
[2017-02-08] MEDS ORDERED: ALBUTEROL 60 PUFFS/8 GM MDI IH PRN (13:04)
[2017-02-08] MEDS ORDERED: PHENYTOIN SODIUM EXTENDED 100 MG CAP PO SCH (16:00)
[2017-02-08] MEDS ORDERED: FLUTICASONE/SALMETER 250/50MCG DISKUS IH SCH (21:00)
[2017-02-08] MEDS ORDERED: clonazePAM 1 MG TAB PO SCH (21:00)
[2017-02-09] MEDS ORDERED: THIAMINE HCL 100 MG TAB PO SCH (09:00)
[2017-02-09] MEDS ORDERED: DILTIAZEM CD 120 MG CAP PO SCH (09:00)
[2017-02-09] MEDS ORDERED: PANTOPRAZOLE SODIUM 40 MG TAB PO SCH (09:00)
[2017-02-09] MEDS ORDERED: ASPIRIN 81 MG CHEWABLE TAB PO SCH (09:00)
== END 2017-02-08 13:08 | disposition home or self-care (01) ==
LOC: EDUNIT# → UNDOADMOB 11:29
DX: M25.562 Pain in left knee (principal); Z59.0 Homelessness
CPT/HCPCS: G0480

== ENCOUNTER 2017-02-08 22:52 | Emergency (ER) | payer OTHER, MEDICAID ==
[2017-02-08 23:03] VITALS: TEMP 97.5
--- NOTE | 2017-02-08 23:20 | EDPHY ---
H & P Stated Complaint: ETOH - Personal History Current Tetanus Diphtheria and Acellular Pertussis (TDAP): Yes Tetanus Vaccine Date: 2015 - Medical/Surgical History Hx Asthma: No Hx Chronic Respiratory Disease: Yes Hx Diabetes: No Hx Cardiac Disease: No Hx Renal Disease: No Hx Cirrhosis: No Hx Alcoholism: Yes Hx HIV/AIDS: No Hx Splenectomy or Spleen Trauma: No Other PMH: PMH: htn, depression/anxiety,chronic back pain. [id number]-fusion, rolanda,left knee meniscus repair,gastric bypass, COPD, epilepsy, ETOH abuse - Social History Smoking Status: Heavy smoker Time Seen by Provider: 02/08/17 23:04 HPI/ROS: Chief Complaint: Altered mental status HPI: 51-year-old male well known to this emergency department with a history of chronic alcohol abuse, homelessness, atrial fibrillation. This is the patient's 2nd visit to this emergency department today. This evening the patient was found unresponsive underneath the bridge by bystanders. He had a half empty bottle of vodka next to him. On EMS arrival the patient was somnolent and arousable to painful stimuli. He was just discharged from the hospital yesterday after admission for atrial fibrillation with RVR, microcytic anemia, anxiety reaction. Patient is currently somnolent and smells of alcohol , he is drifting off to sleep during my interview of him. He is not providing me with any significant medical history at this time. ROS: 10 point Review of Systems is negative except as noted in the HPI. PMH: Atrial fibrillation with RVR, chronic alcoholism, homelessness, anxiety reaction, possible seizure disorder, microcytic anemia Social History: No smoking, daily heavy alcohol Family History: non-contributory Physical Exam: Gen: Awake, somnolent, arousable, smells of alcohol HEENT: Nose: no rhinorrhea Eyes: PERRLA, EOMI Mouth: Moist mucosa Neck: Supple, no JVD Chest: nontender, lungs clear to auscultation Heart: S1, S2 normal, no murmur Abd: Soft, non-tender, no guarding Back: no CVA tenderness, no midline tenderness Ext: no edema, non-tender, normal perfusion, no evidence of huynh nip at this time Skin: no rash Neuro: CN II-XII intact, Sensation grossly intact, Strength 5/5 in bilateral upper and lower extremities (Zhen Mejía) Constitutional: Initial Vital Signs Temperature (C) 36.4 C 02/08/17 22:45 Heart Rate 84 02/08/17 22:45 Respiratory Rate 18 02/08/17 22:45 Blood Pressure 130/83 H 02/08/17 22:45 O2 Sat (%) 94 02/08/17 22:45 O2 Delivery Mode Room Air O2 (L/minute) 2 Allergies/Adverse Reactions: gabapentin Allergy (Verified 01/27/17 18:16) bee stings Allergy (Severe, Uncoded 01/19/17 02:12) Anaphylaxis Home Medications: Medication Instructions Recorded Albuterol [Proventil Inhaler HFA 1 - 2 puffs IH Q4H #1 mdi 01/19/17 (*)] Fluticasone/Salmeter 250/50Mcg 1 puffs IH BID 01/28/17 [Advair 250/50 (*)] Aspirin [Aspirin 81mg (*)] 81 mg PO DAILY tab.chew 02/07/17 Diltiazem Cd [Cardizem ER 120 MG 120 mg PO DAILY #8 cap 02/07/17 (*)] Hydrocodone/APAP 5/325 [[place] 1 - 2 tab PO TID PRN #10 tab 02/07/17 5/325 (*)] Pantoprazole Sodium [Protonix 40mg 40 mg PO DAILY #8 tab 02/07/17 (*)] Phenytoin Sodium Extended 100 mg PO TID #21 cap 02/07/17 [Dilantin (*)] Thiamine HCl [Vitamin B-1] 100 mg PO DAILY tab 02/07/17 clonazePAM [klonoPIN (*)] 1 mg PO BID #10 tab 02/07/17 Medical Decision Making ED Course/Re-evaluation: Patient is sleeping overnight. Signed out to Dr. Blum at 7:35 a.m. 1st evaluation and likely discharge. (Zhen Mejía) I met with this patient at 7:30 AM. I asked him to wait until 9:00 a.m. in case management was available to provide some warm clothes for him. His jeans and shirt are wet. He has a jacket but no gloves or hat. However, he left the department without being formally discharged. He told me that he cannot [facility] to the [facility]. He stated that he will go to the library and then to the [facility]. He was comfortable with this plan. He did not receive discharge instructions. I did see him ambulate any was having no difficulty. ( Kya Blum) Departure - Departure Referrals: Patient,NotPresent [Primary Care Provider] - As per Instructions
[2017-02-09 02:04] VITALS: O2SAT 94
[2017-02-09 06:48] VITALS: BP 120/78; PULSE 76; RESP 18
--- NOTE | 2017-02-09 11:06 | ASDISCHSUM ---
Discharge Information Plan Status:Homeless/Retirement Medically Cleared to Leave: Discharge Date:02/09/2017 09:45 AM CM D/C Disposition:Against Medical Advice ADT D/C Disposition:Against Medical Advice Projected Discharge Date:02/09/2017 09:45 AM Transportation at D/C:None or Unknown Discharge Delay Reason: Follow-Up Date:02/09/2017 09:45 AM Discharge Slot: Final Diagnosis: Placement Information Patient Contact Information Contact Name:PALOMO Relationship: Address: Home Phone: Work Phone: City: Alternate Phone: State/[place] Code: Email: Financial Information Financial Class: Primary Plan Desc:MEDICARE OUTPATIENT Primary Plan Number:[id number] Secondary Plan Desc:MEDICAID HEALTH FIRST [place] OP Secondary Plan Number:[id number] Assessment Information [facility] CM Progress Note CM Note CM Note Notes: Patient brought into ED on an [facility] - DETOX hold; intoxicated, cold and in wet cold clothes. This CM went to speak to patient and provide dry clothes and patient had eloped. Patient's medications (Advair, Dilantin, Doxycycline, and Diltiazem) on counter in room. Medications given to security to hold temporarily. This CM contacted [employer] dispatch to alert them of patient leaving, recommended they bring patient back to ED in order to be provided dry clothes and give him his medications. Contacted [facility] and patient is currently not allowed at their facility due to "ch[facility] seeking" behavior, however if patient is in need of detox they're willing to consider acceptance. CM to follow. Date Signed: 02/09/2017 11:06 AM Electronically Signed By:Melisa Dixon RN LACE MARTHA Acuity / Level of Care Answers: No. Emergency dept visits in Answers: 4+ last 6 months Score: 4 Date Signed: 02/09/2017 11:03 AM Electronically Signed By:Melisa Dixon RN Intervention Information
== END 2017-02-09 09:45 | disposition left against medical advice (07) ==
LOC: EDUNIT#
DX: F10.129 Alcohol abuse with intoxication, unspecified (principal); I10 Essential (primary) hypertension; J44.9 Chronic obstructive pulmonary disease, unspecified; F17.200 Nicotine dependence, unspecified, uncomplicated; Z79.82 Long term (current) use of aspirin

== ENCOUNTER 2017-02-09 18:12 | Emergency (ER) | payer OTHER, MEDICAID ==
[2017-02-09 18:24] VITALS: RESP 18; TEMP 97.5; O2SAT 92
--- NOTE | 2017-02-09 18:25 | EDPHY ---
H & P Smoking Status: Heavy smoker Time Seen by Provider: 02/09/17 18:12 HPI/ROS: CHIEF COMPLAINT: Alcohol intoxication HISTORY OF PRESENT ILLNESS: 51-year-old male presents to the emergency department by ambulance with acute alcohol intoxication. Patient was found sitting outside [employer] and was able to ambulate. The patient admits to drinking 2 pt of vodka today. He has an abrasion to his forehead which she is not sure how he got this. He is complaining of pain especially in his left hip. He denies chest pain or difficulty breathing. Denies abdominal pain. No vomiting. He does complain of headache. No back pain. No pain in upper extremities. Denies numbness or tingling in his upper or lower extremities. REVIEW OF SYSTEMS: Constitutional: No fever, no chills. Eyes: No double or blurry vision. ENT: No sore throat. Respiratory: No cough, no shortness of breath. Cardiac: No chest pain. Gastrointestinal: No abdominal pain, vomiting or diarrhea. Genitourinary: No dysuria. Musculoskeletal: No neck or back pain. Skin: No rashes. Neurological: No headache. (Elda Rey) Past Medical/Surgical History: Alcoholism, hypertension, depression, anxiety, back surgery, chronic back pain, gastric bypass (Elda Rey) Social History: Currently staying at the half-way (Elda Rey) Physical Exam: General Appearance: Lethargic. Smells strongly of alcohol. Very superficial abrasion noted to the anterior aspect of his forehead. No palpable crepitus or other bony abnormality. Eyes: Pupils equal and round. Extraocular motions are all intact. ENT: Mouth: Mucous membranes moist. Respiratory: No wheezing, rhonchi, or rales, lungs are clear to auscultation. Cardiovascular: Regular rate and rhythm. Gastrointestinal: Abdomen is soft and nontender, no masses, no rebound or guarding, bowel sounds normal. Neurological: Uncooperative, cannot determine. Skin: Skin is warm and dry. Right anterior lower chest wall reveals vesicular patch measuring at least 4-5 cm in diameter. No surrounding redness or signs of infection or cellulitis. Musculoskeletal: Nontender to palpate along the cervical, thoracic or lumbar spine. Neck is supple. Extremities: Full range of motion and no peripheral edema. Pain with lifting his left leg. Pain with flexing his left knee. Psychiatric: no agitation. (Elda Rey) Constitutional: Initial Vital Signs Temperature (C) 36.4 C 02/09/17 18:12 Heart Rate 90 02/09/17 18:12 Respiratory Rate 18 02/09/17 18:12 Blood Pressure 134/95 H 02/09/17 18:12 O2 Sat (%) 92 02/09/17 18:12 O2 Delivery Mode Room Air Allergies/Adverse Reactions: gabapentin Allergy (Verified 02/09/17 18:21) bee stings Allergy (Severe, Uncoded 01/19/17 02:12) Anaphylaxis Home Medications: Medication Instructions Recorded Albuterol [Proventil Inhaler HFA 1 - 2 puffs IH Q4H #1 mdi 01/19/17 (*)] Fluticasone/Salmeter 250/50Mcg 1 puffs IH BID 01/28/17 [Advair 250/50 (*)] Aspirin [Aspirin 81mg (*)] 81 mg PO DAILY tab.chew 02/07/17 Diltiazem Cd [Cardizem ER 120 MG 120 mg PO DAILY #8 cap 02/07/17 (*)] Hydrocodone/APAP 5/325 [[place] 1 - 2 tab PO TID PRN #10 tab 02/07/17 5/325 (*)] Pantoprazole Sodium [Protonix 40mg 40 mg PO DAILY #8 tab 02/07/17 (*)] Phenytoin Sodium Extended 100 mg PO TID #21 cap 02/07/17 [Dilantin (*)] Thiamine HCl [Vitamin B-1] 100 mg PO DAILY tab 02/07/17 clonazePAM [klonoPIN (*)] 1 mg PO BID #10 tab 02/07/17 Medical Decision Making ED Course/Re-evaluation: 51-year-old male presents to the emergency department by ambulance with acute alcohol intoxication. Patient is a very superficial abrasion to the anterior aspect of his forehead which is nonsuturable. The wound appears very superficial and more of a scratch. The patient smells strongly of alcohol. The patient has been seen in the emergency department multiple times. He was just discharged this morning at 11:00 a.m.. At that time he had chest x-ray, x- rays of his hip and knee which were negative. The patient has also had numerous CT scans of his head. He has had 10 CT scans of his head just this past year. This is not including CT imaging of his chest and neck which has also been done multiple times in the last year. I do not think CT imaging of his brain is necessary today. The abrasion to his forehead is very superficial. No other signs of trauma noted to his head. The case was discussed with Dr. Fredy Cedillo, secondary supervising physician, who did not directly evaluate the patient but agrees with not doing CT scan of his brain, treatment, and plan. Patient was able to ambulate unassisted. He had no complaints. [facility]. (Elda Rey) Differential Diagnosis: Altered mental status including but not limited to hypoglycemia, infectious process, electrolyte abnormality, head injury and intoxicants. (Elda Rey) - Data Points Laboratory Results: 02/09/17 18:27 Urine Color PALE YELLOW Urine Appearance CLEAR Urine pH 6.0 (5.0-7.5) Ur Specific [place] 1.006 (1.002-1.030) Urine Protein NEGATIVE (NEGATIVE) Urine Ketones NEGATIVE (NEGATIVE) Urine Blood NEGATIVE (NEGATIVE) Urine Nitrate NEGATIVE (NEGATIVE) Urine Bilirubin NEGATIVE (NEGATIVE) Urine Urobilinogen NEGATIVE EU EU (0.2-1.0) Ur Leukocyte Esterase NEGATIVE (NEGATIVE) Urine RBC 3-5 /hpf H /hpf (0-3) Urine WBC NONE SEEN /hpf /hpf (0-3) Ur Epithelial Cells NONE SEEN /lpf /lpf (NONE-1+) Urine Glucose NEGATIVE (NEGATIVE) Medications Given: Discontinued Medications Chlordiazepoxide (Librium 25 Mg Prepack#6) 1 btl [facility] ONE Stop: 02/09/17 21:08 Last Admin: 02/09/17 21:27 Dose: 1 btl Departure - Departure Disposition: Home, Routine, Self-Care Clinical Impression: Alcohol intoxication Qualifiers: Complication of substance-induced condition: uncomplicated Qualified Code(s): F10.920 - Alcohol use, unspecified with intoxication, uncomplicated Condition: Good Instructions: Chlordiazepoxide (By mouth), Alcohol Intoxication (ED), Abuse of Alcohol (ED) Additional Instructions: You should not drink alcohol in excess. Referrals: Patient,NotPresent [Primary Care Provider] - As per Instructions
[2017-02-09] MEDS ORDERED: CHLORDIAZEPOXIDE 25MG PREPK#6 BTL TAKEHOME ONE (21:07)
[2017-02-09 21:55] VITALS: BP 106/60; PULSE 91
== END 2017-02-09 21:55 | disposition home or self-care (01) ==
LOC: EDUNIT#
DX: F10.920 Alcohol use, unspecified with intoxication, uncomplicated (principal); I10 Essential (primary) hypertension; F17.200 Nicotine dependence, unspecified, uncomplicated; Z79.82 Long term (current) use of aspirin

== ENCOUNTER 2017-02-17 07:31 | Emergency (ER) | payer OTHER, MEDICAID ==
--- NOTE | 2017-02-17 07:27 | EDPHY ---
HPI/HX/ROS/PE/MDM Narrative: CHIEF COMPLAINT: EtOH withdrawal, seizure HPI: This patient is a homeless 51 y/o male well known to this emergency department arriving via EMS for evaluation after a fall due to an alcohol withdrawal seizure. EMS arrived after the patient fell several times in a parking lot, most recently about 30 minutes prior to arrival. EMS crews report the patient was shivering and cool to touch on their initial contact with him, and were concerned regarding possible hypothermia as they were unable to achieve an SpO2 reading by pulse oximeter. The patient states he fell due to an alcohol withdrawal seizure. He generally drinks about one point of alcohol per day, and his last drink was yesterday. He complains of neck and back pain. He denies fever, chest pain, vomiting, shortness of breath, or other associated symptoms. REVIEW OF SYSTEMS: Aside from elements discussed in the HPI, a comprehensive 10-point review of systems was reviewed and is negative. PMH: Alcoholism, hypertension, depression, anxiety, back surgery, chronic back pain, gastric bypass. SOCIAL HISTORY: Homeless, frequently stays at the half-way. Chronic alcohol abuse. PHYSICAL EXAM: General:Patient is alert, tremulous. ENT:Eyes are normal to inspection. ENT inspection normal. Neck: Normal inspection. Full range of motion. Respiratory:No respiratory distress. Breath sounds normal bilaterally. Cardiovascular: Regular rate and rhythm. Strong peripheral pulses. Normal cap refill. Abdomen:The abdomen is nontender to palpation. There are no peritoneal signs. There are normal bowel sounds. Back: Normal to inspection. No tenderness to palpation. Skin: Two abrasions to forehead. Abrasion to left periorbital and right periorbital area. Normal color. No rash. Warm and dry. Extremities: Normal appearance. Full range of motion. Neuro: Oriented x3. Normal motor function. Normal sensory function. ED Course: 51 y/o male presents following a fall this morning secondary to an alcohol withdrawal seizure. He is tremulous and sustained multiple abrasions to his forehead and periorbital regions. His temperature on arrival here in the emergency department is 36.5 degrees celsius. He is mildly tachycardic at 102 and hypertensive at triage. Plan to administer 25mg PO Librium, 1mg IV Ativan, and 1L IV NS for symptom relief. 10:28 Patient is feeling better following medication administration and is able to ambulate. Plan to discharge in good condition. He is comfortable with this plan. - Data Points Medications Given: Discontinued Medications Chlordiazepoxide HCl (Librium) 25 mg PO EDNOW ONE Stop: 02/17/17 07:37 Last Admin: 02/17/17 07:42 Dose: 25 mg Sodium Chloride (Ns) 1,000 mls @ 0 mls/hr IV EDNOW ONE; Wide Open PRN Reason: Protocol Stop: 02/17/17 07:37 Last Admin: 02/17/17 07:42 Dose: 1,000 mls Lorazepam (Ativan Injection) 1 mg IVP EDNOW ONE Stop: 02/17/17 07:37 Last Admin: 02/17/17 07:42 Dose: 1 mg General Initial Vital Signs: Initial Vital Signs Temperature (C) 36.5 C 02/17/17 07:46 Heart Rate 102 H 02/17/17 07:46 Respiratory Rate 16 02/17/17 07:46 Blood Pressure 156/107 H 02/17/17 07:46 O2 Sat (%) 96 02/17/17 07:46 O2 Delivery Mode Room Air Allergies/Adverse Reactions: gabapentin Allergy (Verified 02/09/17 18:21) bee stings Allergy (Severe, Uncoded 01/19/17 02:12) Anaphylaxis Home Medications: Medication Instructions Recorded Albuterol [Proventil Inhaler HFA 1 - 2 puffs IH Q4H #1 mdi 01/19/17 (*)] Fluticasone/Salmeter 250/50Mcg 1 puffs IH BID 01/28/17 [Advair 250/50 (*)] Aspirin [Aspirin 81mg (*)] 81 mg PO DAILY tab.chew 02/07/17 Diltiazem Cd [Cardizem ER 120 MG 120 mg PO DAILY #8 cap 02/07/17 (*)] Hydrocodone/APAP 5/325 [[place] 1 - 2 tab PO TID PRN #10 tab 02/07/17 5/325 (*)] Pantoprazole Sodium [Protonix 40mg 40 mg PO DAILY #8 tab 02/07/17 (*)] Phenytoin Sodium Extended 100 mg PO TID #21 cap 02/07/17 [Dilantin (*)] Thiamine HCl [Vitamin B-1] 100 mg PO DAILY tab 02/07/17 clonazePAM [klonoPIN (*)] 1 mg PO BID #10 tab 02/07/17 Departure - Departure Disposition: Home, Routine, Self-Care Clinical Impression: Multiple abrasions Alcohol withdrawal Qualifiers: Complication of substance-induced condition: uncomplicated Qualified Code(s): F10.230 - Alcohol dependence with withdrawal, uncomplicated Condition: Good Instructions: Alcohol Withdrawal (ED), Abrasion (ED) Additional Instructions: 1. Follow up with your primary care provider for further evaluation. 2. Return to the emergency department for fever, chest pain, shortness of breath , or other worsening of condition. Referrals: [facility],. [Clinic] - As per Instructions Report Scribed for: Julio Adair Report Scribed by: Maggie Irene Date of Report: 02/17/17 Time of Report: 07:27 Physician Review and Approval Statement: Portions of this note were transcribed by an ED scribe. I personally performed the history, physical exam, and medical decision making; and confirm the accuracy of the information in the transcribed note.
[2017-02-17] MEDS ORDERED: LORazepam 2 MG/ML INJ IVP ONE (07:36)
[2017-02-17] MEDS ORDERED: chlordiazePOXIDE 25 MG CAP PO ONE (07:36)
[2017-02-17] MEDS ORDERED: NS 1,000 ML IV ONE (07:36)
[2017-02-17 07:47] VITALS: RESP 16; TEMP 97.7
[2017-02-17 10:58] VITALS: BP 159/88; PULSE 99; O2SAT 92
--- NOTE | 2017-02-17 11:43 | ASMTCMCOM ---
CM Note CM Note Notes: Patient brought into ED via EMS after having fallen multiple times, hitting his face and head. Patient is well known to the ED and [facility]. Patient states he does not want to go to Withdrawal Management at [facility] (formerly known as the [facility]). Patient was just there at yesterday 02/16/17. Patient is not allowed at the [facility] until 02/27/16. Patient was unaware that he can still stay at [facility] to Home locations when Severe Weather Senior Care criteria is met. Patient aware [facility] is closed tonight but provided the hotline # and recommended to call it daily. Patient also provided location and hours for [facility] to [place]'s new location at [address] and recommended he go there to see if they can assist him in any other way such as additional clothing items, sleeping bag, resources, etc (even though pt has already completed CE and was referred to [facility]). Patient provided a winter knit beanie. Patient has a winter coat, t-shirt, dry blue jeans and boots. CM offered patient extra pair of socks but he declined. CM did not have any other clothing items to provide patient. In terms of transportation, patient said "I'll figure it out." This CM to contact [facility] and [facility] (pt states has met Nelia before) to see if there is anything else they can assist patient with in terms of ETOH abuse treatment, sober living home, etc. Date Signed: 02/17/2017 11:43 AM Electronically Signed By:Melisa Dixon RN
--- NOTE | 2017-02-17 11:46 | ASDISCHSUM ---
Discharge Information Plan Status:Homeless/Snf Medically Cleared to Leave: Discharge Date:02/17/2017 10:57 AM CM D/C Disposition:Streets (Homeless) ADT D/C Disposition:Home, Routine, Self-Care Projected Discharge Date:02/17/2017 10:57 AM Transportation at D/C:None or Unknown Discharge Delay Reason: Follow-Up Date:02/17/2017 10:57 AM Discharge Slot: Final Diagnosis: Placement Information Patient Contact Information Contact Name:PALOMO Relationship: Address: Home Phone: Work Phone: City: Alternate Phone: State/Zip Code: Email: Financial Information Financial Class: Primary Plan Desc:MEDICARE OUTPATIENT Primary Plan Number:[id number] Secondary Plan Desc:MEDICAID [facility] Secondary Plan Number:[id number] Assessment Information [facility] CM Progress Note CM Note CM Note Notes: Patient brought into ED via EMS after having fallen multiple times, hitting his face and head. Patient is well known to the ED and [facility]. Patient states he does not want to go to [facility] at [facility] (formerly known as the [facility]). Patient was just there at yesterday 02/16/17. Patient is not allowed at the [facility] until 02/27/16. Patient was unaware that he can still stay at [facility] to Home locations when Severe Weather Snf criteria is met. Patient aware [facility] is closed tonight but provided the hotline # and recommended to call it daily. Patient also provided location and hours for [facility] to [place]'s new location at [address] and recommended he go there to see if they can assist him in any other way such as additional clothing items, sleeping bag, resources, etc (even though pt has already completed CE and was referred to [facility]). Patient provided a winter knit beanie. Patient has a winter coat, t-shirt, dry blue jeans and boots. offered patient extra pair of socks but he declined. did not have any other clothing items to provide patient. In terms of transportation, patient said "I'll figure it out." This CM to contact [facility] and [facility] (pt states has met Nelia before) to see if there is anything else they can assist patient with in terms of ETOH abuse treatment, sober living home, etc. Date Signed: 02/17/2017 11:43 AM Electronically Signed By:Melisa Dixon RN LACE LACE Acuity / Level of Care Answers: No. Emergency dept visits in Answers: 4+ last 6 months Score: 4 Date Signed: 02/17/2017 11:44 AM Electronically Signed By:Melisa Dixon RN Intervention Information Intervention Type:Community Resources Date of Service:02/17/2017 11:44 AM Patient Type:Emergency Room Staff Member:[facility] Dixon [place] Hours:0.25 Discipline:Jetting Machine Operator Severity: Comment:[facility] Severe Weather Snf hotline #; [facility] location info. Intervention Type:Clothing Date of Service:02/17/2017 11:44 AM Patient Type:Emergency Room Staff Member:AMNA Dixon [place] Hours:0.25 Discipline:Jetting Machine Operator Severity: Comment:Provided patient with winter knit ghosh ie Intervention Type:Substance Abuse Treatment Date of Service:02/17/2017 11:44 AM Patient Type:Emergency Room Staff Member:AMNA Dixon [place] Hours: Discipline:Jetting Machine Operator Severity: Comment:Offered transportation to Withdrawal Management; pt refused.
== END 2017-02-17 10:57 | disposition home or self-care (01) ==
LOC: EDUNIT#
DX: F10.230 Alcohol dependence with withdrawal, uncomplicated (principal); S00.81XA Abrasion of other part of head, initial encounter; I10 Essential (primary) hypertension; E86.9 Volume depletion, unspecified; Z79.82 Long term (current) use of aspirin; W18.39XA Other fall on same level, initial encounter
CPT/HCPCS: 96374; 99284; J2060

== ENCOUNTER 2017-02-17 16:27 | Emergency (ER) | payer OTHER, MEDICAID ==
[2017-02-17 16:37] VITALS: RESP 16
--- NOTE | 2017-02-17 18:04 | EDPHY ---
H & P Stated Complaint: Too drunk to walk HPI/ROS: Chief complaint: Alcohol intoxication History of present illness: This is a 51-year-old male brought to the emergency room by EMS for evaluation after being found intoxicated. He was seen earlier today for similar. He appears heavily intoxicated but does wake to verbal commands. There is a strong odor of alcohol on his breath. Multiple abrasions that appear old noted to his body. Review of systems: Unable to obtain secondary to level of intoxication - Personal History Current Tetanus/Diphtheria Vaccine: Yes Current Tetanus Diphtheria and Acellular Pertussis (TDAP): Yes Tetanus Vaccine Date: 2015 - Medical/Surgical History Hx Asthma: No Hx Chronic Respiratory Disease: Yes Hx Diabetes: No Hx Cardiac Disease: No Hx Renal Disease: No Hx Cirrhosis: No Hx Alcoholism: Yes Hx HIV/AIDS: No Hx Splenectomy or Spleen Trauma: No Other PMH: PMH: htn, depression/anxiety,chronic back pain. [id number]-fusion, rolanda,left knee meniscus repair,gastric bypass, COPD, epilepsy, ETOH abuse - Social History Smoking Status: Heavy smoker - Physical Exam Exam: General Appearance: Alert to verbal stimuli Eyes: PERRLA ENT: No hemotympanum, no payne sign, no raccoon eyes Respiratory: Lungs clear to auscultation bilaterally Cardiac: Regular rate and rhythm. Gastrointestinal: Bowel sounds normal, abdomen soft, nondistended, nontender Neurological: Alert to verbal stimuli, moving extremities purposefully Skin: Multiple abrasions to the body that appear to be old and healing Musculoskeletal: Head is without apparent tenderness, no crepitus or bony deformity. The spine is without apparent tenderness, no crepitus, bony deformity or step-off. Chest wall intact palpation. Patient moving all extremities well. Constitutional: Initial Vital Signs Temperature (C) 36.6 C 02/17/17 16:28 Heart Rate 98 02/17/17 16:28 Respiratory Rate 16 02/17/17 16:28 Blood Pressure 157/103 H 02/17/17 16:28 O2 Sat (%) 94 02/17/17 16:28 O2 Delivery Mode Room Air Allergies/Adverse Reactions: gabapentin Allergy (Verified 02/09/17 18:21) bee stings Allergy (Severe, Uncoded 01/19/17 02:12) Anaphylaxis Home Medications: Medication Instructions Recorded Albuterol [Proventil Inhaler HFA 1 - 2 puffs IH Q4H #1 mdi 01/19/17 (*)] Fluticasone/Salmeter 250/50Mcg 1 puffs IH BID 01/28/17 [Advair 250/50 (*)] Aspirin [Aspirin 81mg (*)] 81 mg PO DAILY tab.chew 02/07/17 Diltiazem Cd [Cardizem ER 120 MG 120 mg PO DAILY #8 cap 02/07/17 (*)] Hydrocodone/APAP 5/325 [[place] 1 - 2 tab PO TID PRN #10 tab 02/07/17 5/325 (*)] Pantoprazole Sodium [Protonix 40mg 40 mg PO DAILY #8 tab 02/07/17 (*)] Phenytoin Sodium Extended 100 mg PO TID #21 cap 02/07/17 [Dilantin (*)] Thiamine HCl [Vitamin B-1] 100 mg PO DAILY tab 02/07/17 clonazePAM [klonoPIN (*)] 1 mg PO BID #10 tab 02/07/17 Medical Decision Making ED Course/Re-evaluation: Patient is seen under the supervision of my secondary supervising physician Dr. Renetta Do. Patient presents to the emergency department intoxicated. He is observed for over 2 hr. He is able to get up and go to the bathroom on his own. He will be discharged to the [facility]. Differential Diagnosis: Included but not limited to alcohol intoxication, alcohol withdrawal, polysubstance abuse - Data Points Medications Given: Discontinued Medications Chlordiazepoxide (Librium 25 Mg Prepack#6) 1 btl [facility] Stop: 02/17/17 18:07 Last Admin: 02/17/17 18:30 Dose: 1 btl Departure - Departure Disposition: Home, Routine, Self-Care Clinical Impression: Alcohol intoxication Qualifiers: Complication of substance-induced condition: uncomplicated Qualified Code(s): F10.920 - Alcohol use, unspecified with intoxication, uncomplicated Condition: Fair Instructions: Chlordiazepoxide (By mouth), Mouthwash (Into the mouth), Alcohol Intoxication (ED) Additional Instructions: Follow-up with a primary care doctor for recheck If symptoms worsen or new symptoms develop return to the emergency room for recheck Referrals: Patient,NotPresent [Primary Care Provider] - As per Instructions
[2017-02-17] MEDS ORDERED: CHLORDIAZEPOXIDE 25MG PREPK#6 BTL TAKEHOME ONE (18:06)
[2017-02-17 18:47] VITALS: BP 128/102; PULSE 85; TEMP 96.8; O2SAT 92
== END 2017-02-17 18:45 | disposition home or self-care (01) ==
LOC: EDUNIT#
DX: F10.920 Alcohol use, unspecified with intoxication, uncomplicated (principal); F17.200 Nicotine dependence, unspecified, uncomplicated; I10 Essential (primary) hypertension; J44.9 Chronic obstructive pulmonary disease, unspecified; Z79.82 Long term (current) use of aspirin

== ENCOUNTER 2017-02-23 10:54 | Emergency (ER) | payer OTHER, MEDICAID ==
--- NOTE | 2017-02-23 10:54 | EDPHY ---
H & P Constitutional: Initial Vital Signs Temperature (C) 35 C L 02/23/17 11:01 Heart Rate 97 02/23/17 11:01 Respiratory Rate 18 02/23/17 11:01 Blood Pressure 156/96 H 02/23/17 11:01 O2 Sat (%) 94 02/23/17 11:01 O2 Delivery Mode Room Air O2 (L/minute) 0 Allergies/Adverse Reactions: gabapentin Allergy (Verified 02/09/17 18:21) bee stings Allergy (Severe, Uncoded 01/19/17 02:12) Anaphylaxis Home Medications: Medication Instructions Recorded Albuterol [Proventil Inhaler HFA 1 - 2 puffs IH Q4H #1 mdi 01/19/17 (*)] Fluticasone/Salmeter 250/50Mcg 1 puffs IH BID 01/28/17 [Advair 250/50 (*)] Aspirin [Aspirin 81mg (*)] 81 mg PO DAILY tab.chew 02/07/17 Diltiazem Cd [Cardizem ER 120 MG 120 mg PO DAILY #8 cap 02/07/17 (*)] Hydrocodone/APAP 5/325 [[place] 1 - 2 tab PO TID PRN #10 tab 02/07/17 5/325 (*)] Pantoprazole Sodium [Protonix 40mg 40 mg PO DAILY #8 tab 02/07/17 (*)] Phenytoin Sodium Extended 100 mg PO TID #21 cap 02/07/17 [Dilantin (*)] Thiamine HCl [Vitamin B-1] 100 mg PO DAILY tab 02/07/17 clonazePAM [klonoPIN (*)] 1 mg PO BID #10 tab 02/07/17 Medical Decision Making ED Course/Re-evaluation: CHIEF COMPLAINT: Alcohol intoxication. HISTORY OF PRESENT ILLNESS: The patient is a chronic alcoholic living on the street. Patient drinks on a daily basis and obtains whatever alcohol is available. Patient was found by bystanders who called EMS system. Patient has had multiple ER visits over the last several years for the same complaint. Patient denies any injuries denies loss of consciousness denies any recent trauma. Patient denies co-ingestion. Patient denies suicidal or homicidal behavior. He denies any current complaints and wants to leave the ED. REVIEW OF SYSTEMS: A 10 point review of systems was performed and is negative with the exception of the elements mentioned in the history of present illness. PHYSICAL EXAM: General Appearance: Alert, well hydrated, appropriate, and non-toxic appearing. Head: Healing abrasions. No scalp tenderness. Eyes: Pupils equal, round, reactive to light and accommodation, EOMI, no trauma , no injection. Ears: Clear bilaterally, no perforation, normal landmarks Nose: Atraumatic, no rhinorrhea, clear. Throat: Mucus membranes moist. Neck: Supple,nontender, no lymphadenopathy. Respiratory: No retractions, no distress, no wheezes, and no accessory muscle use. Lungs are clear to auscultation bilaterally. Cardiovascular: Regular rate and rhythm, no murmurs, rubs, or gallops. Good capillary refill all extremities. Gastrointestinal: Abdomen is soft, nontender, non-distended, no masses, no rebound, no guarding, no peritoneal signs. Musculoskeletal: Normal active ROM of all extremities, atraumatic. Neurological: Alert, appropriate, and interactive. The patient has non-focal cranial nerves, motor, sensory, and cerebellar exam. Skin: No rashes, good turgor, no nodules on palpation. Healing abrasions all over body. PAST MEDICAL HISTORY: Alcohol abuse PAST SURGICAL HISTORY: Noncontributory SOCIAL HISTORY: Homeless. Alcohol abuse. DIFFERENTIAL DIAGNOSIS: The differential diagnosis for the patient's symptoms included but was not limited to alcohol abuse, alcoholism, and intoxicants. MEDICAL DECISION MAKING: I serially examined this patient since the patient's arrival here in the emergency department. The patient continues to become more and more sober with each examination. I serially questioned the patient and the patient's story given initially has not changed. The patient still denies any trauma, any head injury, and any illicit drug use. At this point, the patient is walking the department freely and is clinically sober. We're discharging the patient to the [facility] in stable condition. Departure - Departure Disposition: Home, Routine, Self-Care Clinical Impression: Alcohol intoxication Qualifiers: Complication of substance-induced condition: uncomplicated Qualified Code(s): F10.920 - Alcohol use, unspecified with intoxication, uncomplicated Condition: Good Instructions: Alcohol Intoxication (ED), Abuse of Alcohol (ED) Additional Instructions: Avoid abuse of alcohol. Referrals: [facility],. [Clinic] - As per Instructions
[2017-02-23 11:02] VITALS: RESP 18; TEMP 95; O2SAT 94
[2017-02-23 11:21] VITALS: BP 120/76; PULSE 89
== END 2017-02-23 11:21 | disposition home or self-care (01) ==
LOC: EDUNIT#
DX: F10.920 Alcohol use, unspecified with intoxication, uncomplicated (principal); Z79.82 Long term (current) use of aspirin

== ENCOUNTER 2017-02-24 05:01 | Emergency (ER) | payer OTHER, MEDICAID ==
[2017-02-24] MEDS ORDERED: NS 1,000 ML IV ONE ×2 (05:07→06:06)
[2017-02-24] MEDS ORDERED: LORazepam 2 MG/ML INJ IVP ONE (05:11)
--- NOTE | 2017-02-24 05:11 | EDPHY ---
H & P HPI/ROS: HPI CHIEF COMPLAINT: Alcohol intoxication, cold exposure, weak legs. HISTORY OF PRESENT ILLNESS: Patient is a very pleasant 51-year-old male very familiar to myself as well as the emergency room, he is an alcoholic and drinks alcohol daily. Presents emergency room stating that he is cold and feels globally weak. States his legs are weak. Upon evaluation to the emergency room is pants were noted be wet and his legs bilaterally are cold to palpation. He has obviously been out cold weather tonight. He states his last drink was earlier today. He also reports that he feels anxious and may be going through early withdrawal. Past Medical History: Daily alcohol use, alcoholism Past Surgical History: Denies recent surgery Social History: Intermittently homeless, daily alcohol use Family History: Noncontributory ROS REVIEW OF SYSTEMS: A comprehensive 10 point review of systems is otherwise negative aside from elements mentioned in the history of present illness. Exam Constitutional appears nontoxic, intoxicated, smells of alcohol cool to touch throughout, possibly hypothermic triage nursing summary reviewed, vital signs reviewed, awake/alert. Eyes normal conjunctivae and sclera, EOMI, PERRLA. HENT normal inspection, atraumatic, moist mucus membranes, no epistaxis, neck supple/ no meningismus, no raccoon eyes. Respiratory clear to auscultation bilaterally, normal breath sounds, no respiratory distress, no wheezing. Cardiovascular rate normal, regular rhythm, no murmur, no edema, distal pulses normal. Gastrointestinal soft, non-tender, no rebound, no guarding, normal bowel sounds, no distension, no pulsatile mass. Genitourinary no CVA tenderness. Musculoskeletal no midline vertebral tenderness, full range of motion, no calf swelling, no tenderness of extremities, no meningismus, good pulses, neurovascularly intact. Skin pink, cool skin with all extremities, & dry, no rash, skin atraumatic. Neurologic awake, alert and oriented x 3, AAOx3, moves all 4 extremities equally, motor intact, sensory intact, CN II-XII intact, normal cerebellar, normal vision, normal speech. Psychiatric anxious Heme/Lymph/Immune no lymphadenopathy. Differential Diagnosis: Includes but is not limited to in a particular order acute alcohol intoxication, electrolyte disturbance, dehydration, cold exposure , hypothermia Medical Decision Making: Plan for this patient IV establishment IV fluid bolus warm IV fluids, warm blankets, check temperature, check basic electrolytes, check alcohol level. Patient reports he is anxious, will provide 1 mg IV Ativan. Will re-evaluate. Re-evaluation: 0634AM: Patient feeling much better after IV fluids and warm blankets. Able to move all his extremities appropriately. He is not hypothermic by temperature. He is feeling better. Return precautions discussed with him. He would like to be discharged from the emergency room. He reports to me he is going to go to shelters today as well as the library. I do recommend he refrain from drinking alcohol. Return if worsening symptoms questions or concerns he understands. Patient ambulated well throughout the emergency room. Source: Patient, EMS - Personal History Tetanus Vaccine Date: 2015 - Medical/Surgical History Hx Asthma: No Hx Chronic Respiratory Disease: Yes Hx Diabetes: No Hx Cardiac Disease: No Hx Renal Disease: No Hx Cirrhosis: No Hx Alcoholism: Yes Hx HIV/AIDS: No Hx Splenectomy or Spleen Trauma: No Other PMH: PMH: htn, depression/anxiety,chronic back pain. [id number]-fusion, rolanda,left knee meniscus repair,gastric bypass, COPD, epilepsy, ETOH abuse - Social History Smoking Status: Heavy smoker Constitutional: Initial Vital Signs Temperature (C) 36.6 C 02/24/17 05:04 Heart Rate 116 H 02/24/17 05:04 Respiratory Rate 18 02/24/17 05:04 Blood Pressure 140/111 H 02/24/17 05:04 O2 Sat (%) 92 02/24/17 05:04 O2 Delivery Mode Room Air Allergies/Adverse Reactions: gabapentin Allergy (Verified 02/25/17 01:42) bee stings Allergy (Severe, Uncoded 02/25/17 01:42) Anaphylaxis Home Medications: Medication Instructions Recorded Albuterol [Proventil Inhaler HFA 1 - 2 puffs IH Q4H #1 mdi 01/19/17 (*)] Fluticasone/Salmeter 250/50Mcg 1 puffs IH BID 01/28/17 [Advair 250/50 (*)] Diltiazem Cd [Cardizem ER 120 MG 120 mg PO DAILY #8 cap 02/07/17 (*)] Pantoprazole Sodium [Protonix 40mg 40 mg PO DAILY #8 tab 02/07/17 (*)] Phenytoin Sodium Extended 100 mg PO TID #21 cap 02/07/17 [Dilantin (*)] clonazePAM [klonoPIN (*)] 1 mg PO BID #10 tab 02/07/17 Lisinopril/Hctz 20/12.5MG 1 ea PO DAILY 02/24/17 [Zestoretic/Prinzide 20/12.5MG (*)] Medical Decision Making - Data Points Laboratory Results: Laboratory Results 02/24/17 05:35 02/24/17 05:35 Medications Given: Discontinued Medications Sodium Chloride (Ns) 1,000 mls @ 0 mls/hr IV EDNOW ONE; Wide Open PRN Reason: Protocol Stop: 02/24/17 05:08 Last Admin: 02/24/17 05:36 Dose: 1,000 mls Sodium Chloride (Ns) 1,000 mls @ 0 mls/hr IV ONCE ONE PRN Reason: Wide Open Stop: 02/24/17 06:07 Last Admin: 02/24/17 06:10 Dose: 1,000 mls Lorazepam (Ativan Injection) 1 mg IVP EDNOW ONE Stop: 02/24/17 05:12 Last Admin: 02/24/17 05:37 Dose: 1 mg Departure - Departure Disposition: Home, Routine, Self-Care Clinical Impression: Dehydration Cold exposure Qualifiers: Encounter type: initial encounter Qualified Code(s): T69.9XXA - Effect of reduced temperature, unspecified, initial encounter Alcohol intoxication Qualifiers: Complication of substance-induced condition: uncomplicated Qualified Code(s): F10.920 - Alcohol use, unspecified with intoxication, uncomplicated Condition: Good Instructions: Dehydration (ED), Alcohol Intoxication (ED) Referrals: Patient,NotPresent [Unknown] - As per Instructions
[2017-02-24 05:46] VITALS: TEMP 97.9
[2017-02-24 05:46] LABS: PLATELET COUNT 284 10^3/uL (150-400)
[2017-02-24 06:55] VITALS: BP 131/81; PULSE 98; RESP 20; O2SAT 93
== END 2017-02-24 06:54 | disposition home or self-care (01) ==
LOC: EDUNIT#
DX: F10.920 Alcohol use, unspecified with intoxication, uncomplicated (principal); T69.9XXA Effect of reduced temperature, unspecified, initial encounter; E86.0 Dehydration; E86.9 Volume depletion, unspecified; F17.200 Nicotine dependence, unspecified, uncomplicated; I10 Essential (primary) hypertension; J44.9 Chronic obstructive pulmonary disease, unspecified; W93.8XXA Exposure to other excessive cold of man-made origin, initial encounter
CPT/HCPCS: 96361; 96374; 99284; J2060; G0480

== ENCOUNTER 2017-02-25 01:29 | Inpatient (IN) | payer OTHER, MEDICAID ==
[2017-02-25] MEDS ORDERED: NS 1,000 ML IV ONE ×2 (01:33→04:13)
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
[2017-02-25 02:01] LABS: PLATELET COUNT 272 10^3/uL (150-400)
[2017-02-25] MEDS ORDERED: HYDROCODONE/APAP 5/325 TAB PO ONE ×2 (02:34→04:04)
[2017-02-25] MEDS ORDERED: HYDROCODONE/APAP 5/325 TAB ONE (02:35)
[2017-02-25 02:40] LABS: CREATINE KINASE 2572 IU/L (0-224)
[2017-02-25] MEDS ORDERED: LORazepam 2 MG/ML INJ ONE (04:36)
[2017-02-25] MEDS ORDERED: LORazepam 2 MG/ML INJ IVP ONE (04:38)
[2017-02-25] MEDS ORDERED: GADOBUTROL 10 ML VIAL IVP ONE (05:17)
[2017-02-25] MEDS ORDERED: HYDROmorphONE/DILAUDID 1 MG/ML INJ IVP ONE (05:20)
[2017-02-25] MEDS ORDERED: ONDANSETRON 4 MG/2 ML VIAL IVP PRN (05:23)
[2017-02-25] MEDS ORDERED: ALBUTEROL 3 ML DEYVIAL IH PRN (06:30)
[2017-02-25] MEDS: ASPIRIN EC 325 MG TAB PO SCH (07:54)
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
[2017-02-25] MEDS: HYDROmorphONE/DILAUDID 1 MG/ML INJ IVP PRN ×4 (09:58→21:15)
[2017-02-25] MEDS: LR 1,000 ML IV SCH ×3 (09:58→19:40)
[2017-02-25] MEDS: LIDOCAINE 5% 1 EA PATCH TD SCH (09:59)
[2017-02-25] MEDS: PANTOPRAZOLE SODIUM 40 MG TAB PO SCH (09:59)
[2017-02-25] MEDS: THIAMINE HCL 500 MG in NS 100 ML IV SCH (09:59)
[2017-02-25] MEDS: FERROUS SULFATE 325 MG TAB PO SCH (09:59)
[2017-02-25] MEDS: FLUTICASONE/SALMETER 250/50MCG DISKUS IH SCH ×2 (09:59→20:56)
[2017-02-25] MEDS: DILTIAZEM CD 120 MG CAP PO SCH (09:59)
[2017-02-25] MEDS: PHENYTOIN SODIUM EXTENDED 100 MG CAP PO SCH ×3 (10:00→21:35)
--- NOTE | 2017-02-25 12:05 | HOSPPROG ---
Hospitalist Progress Note Assessment/Plan: 51 yo homeless man with multiple medical issues is admitted with huynh bite # frostbite lower extremities left worse than right, discoloration on his left foot numbness pulses intact * Consider Procardia * Patient on aspirin * Keep foot warm * Discussed with Dr. Escobar who will see patient * no procardia due to interaction with dilantin # Neuropathy. MRI reviewed and shows obvious cause for his numbness. I suspect this is related to his frostbite, will check labs to make sure vitamin B12 and TSH are normal * Check labs * Unable tolerate gabapentin and Cymbalta due to seizures * Continue pain control for now # alcoholism, at risk for withdrawal, currently on CIWA * Monitor # seizure disorder currently on Dilantin, unable to state gabapentin because it caused seizures. Cymbalta can also lower the seizure threshold. Will follow # COPD, continue his current medications follow respiratory status # rhabdomyolysis, mild will continue to monitor # Anemia, chronic and stable # DVT prophylaxis, on prophylaxis Subjective: Patient new to me and chart reviewed. Has numbness on his lower legs. Left greater than right in stocking distribution pulses intact also describes a burning sensation in his feet that is quite painful Objective: Vital Signs Temp Pulse Resp BP Pulse Ox 36.6 C 117 H 21 H 149/81 H 93 02/25/17 11:58 02/25/17 11:58 02/25/17 11:58 02/25/17 11:58 02/25/17 11:58 02/24/17 02/25/17 02/26/17 05:59 05:59 05:59 Intake Total 2500 Output Total 150 Balance 2350 - Physical Exam Constitutional: chronically ill appearing, uncomfortable, unkempt Eyes: PERRL, EOMI Ears, Nose, Mouth, Throat: hearing normal Cardiovascular: regular rate and rhythym Respiratory: no respiratory distress, reduced air movement Gastrointestinal: normoactive bowel sounds, soft, non-tender abdomen Genitourinary: no bladder fullness Skin: warm, mottled, other (Purple discoloration on his left foot) Musculoskeletal: no joint effusions Neurologic: AAOx3, weakness, other (Tremulous) Psychiatric: interacting appropriately ICD10 Worksheet Patient Problems: Problems Problem Status Onset Alcohol intoxication Acute Back pain Acute Cold exposure Acute Frostbite Acute Abdominal pain Acute Alcohol abuse Acute Alcohol withdrawal Acute Atrial fibrillation with RVR Acute COPD (chronic obstructive pulmonary disease) Acute Facial laceration Acute Laceration of eyebrow, left Acute Lactic acidosis Acute Multiple abrasions Acute Neck strain Acute Reversible airways disease Acute Seizure Acute Situational depression Acute Strain of mid-back Acute
--- NOTE | 2017-02-25 12:08 | PDMN ---
Medical Necessity Medical necessity: Pt meets IP criteria per MD; est los >2 mn for eval/tx of severe BLE frostbite w/rhabdomyolysis & LE weakness, as well as evidence of impending alcohol withdrawal; admit for rewarming & close monitoring; hx alcoholism, seizure disorder, COPD, falls & homelessness; per H&P & order
[2017-02-25] MEDS: ALBUTEROL 60 PUFFS/8 GM MDI IH SCH ×4 (12:15→23:30)
[2017-02-25] MEDS: chlordiazePOXIDE 25 MG CAP PO PRN ×2 (13:12→21:35)
[2017-02-25] MEDS: NIFEdipine ER 30 MG TAB PO SCH (14:03)
[2017-02-25] MEDS: LORazepam 1 MG TAB PO SCH ×2 (14:03→21:35)
[2017-02-25] MEDS: ENOXAPARIN 40 MG/0.4 ML SYR SC SCH (14:04)
--- NOTE | 2017-02-25 15:21 | ASMTCMCOM ---
CM Note CM Note Notes: Pt admitted with LE weakness and frostbite on both feet,and rhabdomyloysis related to the frostbite and lying on the ground for approx 6 hours. He is homeless and sleeps in the [place], stated he tripped over a tree root and couldn't get up. He has a hx of afib, COPD, seizure d/o, back pain, Bipolar d/o, depression, anxiety, etoh and etoh w/d. He has had several hospitalizations and been provided etoh resources. He has stayed at [facility] and been in [facility], and been seen at [facility]. Pt stated he is disabled due to breaking his back and being unable to work. He has no friends or family around here and is originally from [place]. CM will follow for any d/c needs. Date Signed: 02/25/2017 03:20 PM Electronically Signed By:STUART Epps
[2017-02-25] MEDS: oxyCODONE IR 5 MG TAB PO PRN (19:42)
[2017-02-25] MEDS: clonazePAM 1 MG TAB PO SCH (19:42)
--- NOTE | 2017-02-25 20:23 | SOAPPROG ---
SOAP Progress Note Assessment/Plan: Assessment: 51-year-old male homeless with the frostbite of his left foot/patient was strapped outside for over 2 hours in the a cold weather after falling down Presently complains of numbness and pain in his left foot states that his right foot is doing fine Denies drinking last night Extremities reveal full range of motion but with decreased sensation in the left toes/full distal pulses/purplish discoloration of his distal left foot and toes Impression significant left foot frostbite Plan: Plan is re-warm/wound care/Lovenox and aspirin/apparently cannot take gabapentin or and Procardia for other medical interactions/consider angiography 02/25/17 20:20 Objective: Vital Signs Temp Pulse Resp BP Pulse Ox 36.7 C 106 H 20 128/68 H 95 02/25/17 19:38 02/25/17 19:38 02/25/17 19:38 02/25/17 19:38 02/25/17 19:38 02/24/17 02/25/17 02/26/17 05:59 05:59 05:59 Intake Total 4753 Output Total 150 Balance 4603 ICD10 Worksheet Patient Problems: Problems Problem Status Onset Alcohol intoxication Acute Back pain Acute Cold exposure Acute Frostbite Acute Abdominal pain Acute Alcohol abuse Acute Alcohol withdrawal Acute Atrial fibrillation with RVR Acute COPD (chronic obstructive pulmonary disease) Acute Facial laceration Acute Laceration of eyebrow, left Acute Lactic acidosis Acute Multiple abrasions Acute Neck strain Acute Reversible airways disease Acute Seizure Acute Situational depression Acute Strain of mid-back Acute
[2017-02-25] MEDS: PATCH REMOVAL 1 EA PATCH TD SCH (21:06)
[2017-02-26] MEDS: HYDROmorphONE/DILAUDID 1 MG/ML INJ IVP PRN ×5 (01:25→20:11)
[2017-02-26] MEDS: chlordiazePOXIDE 25 MG CAP PO PRN ×2 (01:44→09:08)
[2017-02-26] MEDS: LR 1,000 ML IV SCH ×2 (03:41→13:01)
[2017-02-26] MEDS: ALBUTEROL 60 PUFFS/8 GM MDI IH SCH ×6 (05:30→20:23)
[2017-02-26] MEDS: oxyCODONE IR 5 MG TAB PO PRN ×5 (05:58→22:49)
[2017-02-26] MEDS: LORazepam 1 MG TAB PO SCH ×3 (05:58→22:49)
[2017-02-26 07:54] LABS: PLATELET COUNT 177 10^3/uL (150-400)
[2017-02-26 08:03] LABS: INR 1.13 (0.83-1.16); PROTIME(PATIENT) 14.7 SEC (12.0-15.0)
[2017-02-26] MEDS: FLUTICASONE/SALMETER 250/50MCG DISKUS IH SCH ×2 (08:06→20:22)
[2017-02-26] MEDS: LIDOCAINE 5% 1 EA PATCH TD SCH (08:12)
[2017-02-26] MEDS: DILTIAZEM CD 120 MG CAP PO SCH (08:13)
[2017-02-26] MEDS: ENOXAPARIN 40 MG/0.4 ML SYR SC SCH (08:13)
[2017-02-26] MEDS: PHENYTOIN SODIUM EXTENDED 100 MG CAP PO SCH ×3 (08:14→22:51)
[2017-02-26] MEDS: ASPIRIN EC 325 MG TAB PO SCH (08:14)
[2017-02-26] MEDS: PANTOPRAZOLE SODIUM 40 MG TAB PO SCH (08:14)
[2017-02-26] MEDS: NIFEdipine ER 30 MG TAB PO SCH (08:14)
[2017-02-26] MEDS: FERROUS SULFATE 325 MG TAB PO SCH (08:15)
[2017-02-26] MEDS: clonazePAM 1 MG TAB PO SCH ×2 (08:15→20:11)
[2017-02-26 08:24] LABS: CREATINE KINASE 1499 IU/L (0-224)
[2017-02-26] MEDS: THIAMINE HCL 500 MG in NS 100 ML IV SCH (08:57)
[2017-02-26] MEDS ORDERED: LISINOPRIL/HCTZ 20/12.5MG 1 EA TAB PO SCH (09:00)
--- NOTE | 2017-02-26 10:20 | HOSPPROG ---
Hospitalist Progress Note Assessment/Plan: 51 yo homeless man with multiple medical issues is admitted with huynh bite # frostbite lower extremities left worse than right, discoloration on his left foot numbness pulses intact * Consider Procardia, has an interaction with dilantin that lowers its effectiveness but doesn't affect dilantin levels. * Patient on aspirin * Keep foot warm * Discussed with Dr. Escobar he will likely lose some toes # Neuropathy. MRI reviewed and shows obvious cause for his numbness. I suspect this is related to his frostbite, will check labs to make sure vitamin B12 and TSH are normal * Check labs * Unable tolerate gabapentin and Cymbalta due to seizures * Continue pain control for now # alcoholism, at risk for withdrawal, currently on CIWA * Monitor # seizure disorder currently on Dilantin, unable to state gabapentin because it caused seizures. Cymbalta can also lower the seizure threshold. Will follow # COPD, continue his current medications follow respiratory status # rhabdomyolysis, mild will continue to monitor, CPK improve # Anemia, chronic and stable # DVT prophylaxis, on prophylaxis DISPO: pt will need more time in hospital, it is unclear if he will be able to salvage the foot, followed by Dr. Escobar. Subjective: having burning pain in his left foot. some shakes from etoh wd, Objective: Vital Signs Temp Pulse Resp BP Pulse Ox 37.2 C 106 H 25 H 125/74 H 95 02/26/17 07:22 02/26/17 08:13 02/26/17 07:22 02/26/17 08:14 02/26/17 07:22 Laboratory Results 02/26/17 07:48 02/26/17 07:48 02/25/17 02/26/17 02/27/17 05:59 05:59 05:59 Intake Total 5603 1425 Output Total 1000 725 Balance 4603 700 PT 14.7 SEC (12.0-15.0) 02/26/17 07:48 INR 1.13 (0.83-1.16) 02/26/17 07:48 - Physical Exam Constitutional: uncomfortable, unkempt Eyes: PERRL Ears, Nose, Mouth, Throat: moist mucous membranes Cardiovascular: regular rate and rhythym, no murmur, rub, or gallop Respiratory: no respiratory distress, no rales or rhonchi, clear to auscultation Gastrointestinal: normoactive bowel sounds, soft, non-tender abdomen Genitourinary: no bladder fullness Skin: mottled, other (purple left foot) Neurologic: AAOx3 Psychiatric: interacting appropriately, depressed ICD10 Worksheet Patient Problems: Problems Problem Status Onset Alcohol intoxication Acute Back pain Acute Cold exposure Acute Frostbite Acute Abdominal pain Acute Alcohol abuse Acute Alcohol withdrawal Acute Atrial fibrillation with RVR Acute COPD (chronic obstructive pulmonary disease) Acute Facial laceration Acute Laceration of eyebrow, left Acute Lactic acidosis Acute Multiple abrasions Acute Neck strain Acute Reversible airways disease Acute Seizure Acute Situational depression Acute Strain of mid-back Acute
[2017-02-26] MEDS ORDERED: PROTOCOL MAGNESIUM 1 DOSE IV PRN (10:21)
[2017-02-26] MEDS ORDERED: MAGNESIUM SULF 2 GM/WATER 50 ML IV ONE (10:56)
[2017-02-26] MEDS ORDERED: ACETAMINOPHEN 325 MG TAB PO PRN (11:37)
--- NOTE | 2017-02-26 12:03 | SOAPPROG ---
SOAP Progress Note Assessment/Plan: Assessment: 51-year-old male homeless with significant frostbite of his left foot/patient was strapped outside for over 2 hours in the a cold weather after falling down Presently complains of numbness and pain in his left foot states that his right foot is doing fine Denies drinking last night Seen with Dr. Escobar this am. Extremities reveal full range of motion but with decreased sensation in the left toes/full distal pulses/purplish discoloration of his distal left foot and toes. Plan: Will get LLE US r/o DVT as well as arterial studies without exercise, and continue current plan of re-warm/wound care/Lovenox and aspirin/apparently cannot take gabapentin or and Procardia for other medical interactions/consider angiography. Observation for demarcation. 02/26/17 12:01 Objective: Vital Signs Temp Pulse Resp BP Pulse Ox 38.7 C H 109 H 18 129/72 H 98 02/26/17 11:23 02/26/17 11:23 02/26/17 11:23 02/26/17 11:23 02/26/17 11:23 Laboratory Results 02/26/17 07:48 02/26/17 07:48 02/25/17 02/26/17 02/27/17 05:59 05:59 05:59 Intake Total 5603 1425 Output Total 1000 1475 Balance 4603 -50 PT 14.7 SEC (12.0-15.0) 02/26/17 07:48 INR 1.13 (0.83-1.16) 02/26/17 07:48 ICD10 Worksheet Patient Problems: Problems Problem Status Onset Alcohol intoxication Acute Back pain Acute Cold exposure Acute Frostbite Acute Abdominal pain Acute Alcohol abuse Acute Alcohol withdrawal Acute Atrial fibrillation with RVR Acute COPD (chronic obstructive pulmonary disease) Acute Facial laceration Acute Laceration of eyebrow, left Acute Lactic acidosis Acute Multiple abrasions Acute Neck strain Acute Reversible airways disease Acute Seizure Acute Situational depression Acute Strain of mid-back Acute
--- NOTE | 2017-02-26 15:16 | ASMTCAGE ---
CAGE Do you feel you ought to Answers: Yes cut down on your drinking or drug use? Do people annoy you by Answers: No criticizing your drinking or drug use? Do you feel guilty about Answers: Yes your drinking or drug use? 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 Date Signed: 02/26/2017 03:16 PM Electronically Signed By:STUART Epps
--- NOTE | 2017-02-26 15:20 | ASMTCMCOM ---
CM Note CM Note Notes: CAGE completed. Pt has a long hx of etoh abuse and treatment. Currently on CIWA. Pt too groggy from pain meds and in pain with his frostbit feet to discuss etoh issues at this time. Date Signed: 02/26/2017 03:19 PM Electronically Signed By:STUART Epps
[2017-02-26] MEDS: PATCH REMOVAL 1 EA PATCH TD SCH (22:51)
[2017-02-27] MEDS: LR 1,000 ML IV SCH ×2 (00:15→08:31)
[2017-02-27] MEDS: LORazepam 1 MG TAB PO PRN ×2 (00:20→09:23)
[2017-02-27] MEDS: oxyCODONE IR 5 MG TAB PO PRN ×4 (02:45→21:21)
[2017-02-27] MEDS: ALBUTEROL 60 PUFFS/8 GM MDI IH SCH ×6 (05:12→23:08)
[2017-02-27] MEDS: LORazepam 1 MG TAB PO SCH ×3 (05:40→21:21)
[2017-02-27] MEDS: HYDROmorphONE/DILAUDID 1 MG/ML INJ IVP PRN ×3 (05:40→20:05)
[2017-02-27 05:47] LABS: PLATELET COUNT 198 10^3/uL (150-400)
[2017-02-27 05:51] LABS: CREATINE KINASE 1215 IU/L (0-224)
[2017-02-27] MEDS: FLUTICASONE/SALMETER 250/50MCG DISKUS IH SCH ×2 (08:02→20:43)
--- NOTE | 2017-02-27 08:35 | CPIP ---
[f rep st] INVASIVE CARDIAC PROCEDURE The patient is here for frostbite, particularly of his left foot. Seen for arterial studies. He demonstrates good pulsatile flow down to the transmetatarsal level with an ankle-brachial index on the left of 0.86 and on the right of 1.06. IMPRESSION: Adequate inflow to heal his lesions. /[id number]/MODL
[2017-02-27] MEDS: ENOXAPARIN 40 MG/0.4 ML SYR SC SCH (09:05)
[2017-02-27] MEDS: clonazePAM 1 MG TAB PO SCH ×2 (09:06→21:22)
[2017-02-27] MEDS: NIFEdipine ER 30 MG TAB PO SCH (09:06)
[2017-02-27] MEDS: ASPIRIN EC 325 MG TAB PO SCH (09:06)
[2017-02-27] MEDS: FERROUS SULFATE 325 MG TAB PO SCH (09:06)
[2017-02-27] MEDS: PHENYTOIN SODIUM EXTENDED 100 MG CAP PO SCH ×3 (09:06→21:21)
[2017-02-27] MEDS: PANTOPRAZOLE SODIUM 40 MG TAB PO SCH (09:06)
[2017-02-27] MEDS: DILTIAZEM CD 120 MG CAP PO SCH (09:07)
[2017-02-27] MEDS: THIAMINE HCL 500 MG in NS 100 ML IV SCH (09:23)
--- NOTE | 2017-02-27 09:51 | SOAPPROG ---
SOAP Progress Note Assessment/Plan: Assessment/plan: 51-year-old male homeless with significant frostbite of his left foot/patient was strapped outside for over 2 hours in the a cold weather after falling down, denies drinking. Toes blueish with increased calf swelling, warmth, and new redness. Possibly developing a cellulitis. Consider ancef. Will contact hospitalist. New blisters. Will monitor. If increase in number and size or infected then will need debridement. US neg for DVT. Arterial studies show adequate blood flow for healing. Continue ASA and nifedipine. Observation for further demarcation. No surgery now. S: foot pain unchanged. O: alert, nad L leg with diffuse edema, erythema about 2/3 up calf. blueish toes with early demarcation. nonpalpable pulses, likely 2/2 edema (see arterial studies) 02/27/17 09:53 Objective: Vital Signs Temp Pulse Resp BP Pulse Ox 37.2 C 106 H 16 123/71 H 93 02/27/17 03:37 02/27/17 08:02 02/27/17 08:02 02/27/17 03:37 02/27/17 08:02 Laboratory Results 02/27/17 04:42 02/27/17 04:42 02/26/17 02/27/17 02/28/17 05:59 05:59 05:59 Intake Total 5603 6167 Output Total 1000 2675 Balance 4603 3492 PT 14.7 SEC (12.0-15.0) 02/26/17 07:48 INR 1.13 (0.83-1.16) 02/26/17 07:48 ICD10 Worksheet Patient Problems: Problems Problem Status Onset Back pain Acute Cold exposure Acute Frostbite Acute Abdominal pain Acute Alcohol abuse Acute Alcohol intoxication Acute Alcohol withdrawal Acute Atrial fibrillation with RVR Acute COPD (chronic obstructive pulmonary disease) Acute Cold exposure Acute Dehydration Acute Facial laceration Acute Laceration of eyebrow, left Acute Lactic acidosis Acute Multiple abrasions Acute Neck strain Acute Reversible airways disease Acute Seizure Acute Situational depression Acute Strain of mid-back Acute
--- NOTE | 2017-02-27 10:17 | HOSPPROG ---
Hospitalist Progress Note Assessment/Plan: # frostbite, likely secondary soft tissue infection - - cont procardia, aspirin, lovenox (clarify dose with Dr Escobar) # suspected sepsis (fever, tachy, cellulitis) - cellulitis marked; - check CXR, nlood cultures - start vanc, unasyn # tachycardia - could also be related to etOH w/d, PE; treat as above and follow - cont IVF, check ECG # etOH abuse and withdrawal; at risk for severe w/d - cont CIWA # hypoNa - follow # neuropathy - likely d/t etOH; B12 ok # seizure disorder - cont dilantin, treat w/d - check dilantin level; procardia may increase serum levels # COPD - currently on RA # anemia - stable and chronic # mild rhabdo - resolving # DVT ppx - lovenox Subjective: very concerned about losing his toes; febrile yesterday Objective: Vital Signs Temp Pulse Resp BP Pulse Ox 37.2 C 106 H 16 123/71 H 93 02/27/17 03:37 02/27/17 08:02 02/27/17 08:02 02/27/17 03:37 02/27/17 08:02 Laboratory Results 02/27/17 04:42 02/27/17 04:42 02/26/17 02/27/17 02/28/17 05:59 05:59 05:59 Intake Total 5603 6167 Output Total 1000 2675 Balance 4603 3492 PT 14.7 SEC (12.0-15.0) 02/26/17 07:48 INR 1.13 (0.83-1.16) 02/26/17 07:48 chart reviewed MRI reviewed US reviewed - Physical Exam Constitutional: chronically ill appearing, uncomfortable, unkempt Cardiovascular: no murmur, rub, or gallop, tachycardia Respiratory: no respiratory distress, no rales or rhonchi, clear to auscultation Gastrointestinal: normoactive bowel sounds, soft, non-tender abdomen, no palpable masses Musculoskeletal: other (L foot with darkened 1st and 2nd toes; some blistering; erythema extends to mid segura) ICD10 Worksheet Patient Problems: Problems Problem Status Onset Situational depression Acute Seizure Acute Alcohol withdrawal Acute Abdominal pain Acute Alcohol intoxication Acute Reversible airways disease Acute Lactic acidosis Acute Multiple abrasions Acute Neck strain Acute Strain of mid-back Acute COPD (chronic obstructive pulmonary disease) Acute Alcohol abuse Acute Facial laceration Acute Laceration of eyebrow, left Acute Atrial fibrillation with RVR Acute Cold exposure Acute Dehydration Acute Frostbite Acute Cold exposure Acute Back pain Acute
[2017-02-27] MEDS ORDERED: VANCOMYCIN 1.25 GM in D5W 250 ML IV SCH (11:00)
[2017-02-27] MEDS: LIDOCAINE 5% 1 EA PATCH TD SCH (11:04)
[2017-02-27] MEDS ORDERED: AMPICILLIN/SULBACTAM 3 GM in NS 100 ML IV SCH (12:00)
--- NOTE | 2017-02-27 12:04 | CPEKG ---
Heart Rate: 106 RR Interval: 566 P-R Interval: 144 QRSD Interval: 72 QT Interval: 380 QTC Interval: 505 P [place]: 59 QRS [place]: 35 T Wave [place]: -40 EKG Severity - ABNORMAL ECG - EKG Impression: SINUS TACHYCARDIA EKG Impression: PROLONGED QT INTERVAL EKG Impression: QTc PROLONGATION IS NEW IN COMPARISON TO PRIOR Electronically Signed By: Will Blackwell 03-Mar-2017 10:19:35
[2017-02-27] MEDS ORDERED: ceFAZolin 3 GM in D5W 100 ML IV SCH (12:15)
[2017-02-27] MEDS ORDERED: MAGNESIUM SULF 1 GM/DEXTROSE 100 ML IV ONE (15:23)
[2017-02-27] MEDS ORDERED: CEFEPIME HCL 2 GM in STERILE WATER INJ 12.5 ML IV SCH (21:00)
[2017-02-27] MEDS: ceFAZolin 2 GM/SWFI 2 GM/20 ML SYR IVP SCH (21:19)
[2017-02-27] MEDS: ENOXAPARIN 120 MG/0.8 ML SYR SC SCH (21:19)
[2017-02-27] MEDS: PATCH REMOVAL 1 EA PATCH TD SCH (21:25)
[2017-02-28] MEDS: HYDROmorphONE/DILAUDID 1 MG/ML INJ IVP PRN ×5 (01:27→22:09)
[2017-02-28] MEDS: oxyCODONE IR 5 MG TAB PO PRN ×4 (04:59→22:13)
[2017-02-28] MEDS: LORazepam 1 MG TAB PO SCH ×3 (04:59→22:13)
[2017-02-28] MEDS: ceFAZolin 2 GM/SWFI 2 GM/20 ML SYR IVP SCH (05:00)
[2017-02-28] MEDS: LR 1,000 ML IV SCH ×2 (05:04→13:56)
[2017-02-28] MEDS: ALBUTEROL 60 PUFFS/8 GM MDI IH SCH ×6 (05:13→23:26)
[2017-02-28 06:07] LABS: PLATELET COUNT 220 10^3/uL (150-400)
--- NOTE | 2017-02-28 09:02 | HOSPPROG ---
Hospitalist Progress Note Assessment/Plan: # frostbite, with a likely soft tissue infection - cont procardia, aspirin, lovenox (now at treatment dose after discussing with boone mcdonald) - given purulence, will change abx to vanc, and send wound culture # sepsis (fever, tachy, cellulitis) - vitals better today - blood cultures pending, no hypotension # tachycardia - better today; etOH w/d + sepsis?; also consider PE - cont IVF # etOH abuse and withdrawal; at risk for severe w/d - cont CIWA # hypoNa - follow # neuropathy - likely d/t etOH; B12 ok # seizure disorder - cont dilantin, treat w/d - dilantin level low; procardia may increase serum levels; recheck dilantin level in a few days # COPD - currently on RA # anemia - stable and chronic # mild rhabdo - resolving # nodular consolidation on CT - needs outpatient f/u # DVT ppx - lovenox Subjective: falling asleep; bilat legs weak; no urinary retention, no saddle anesthesia Objective: Vital Signs Temp Pulse Resp BP Pulse Ox 37.1 C 97 16 125/65 H 93 02/28/17 07:41 02/28/17 07:41 02/28/17 07:41 02/28/17 07:41 02/28/17 07:41 Laboratory Results 02/28/17 04:48 02/28/17 04:48 02/27/17 02/28/17 03/01/17 05:59 05:59 05:59 Intake Total 6167 1750 1187 Output Total 2675 430 Balance 3492 1320 1187 PT 14.7 SEC (12.0-15.0) 02/26/17 07:48 INR 1.13 (0.83-1.16) 02/26/17 07:48 CXR personally reviewed ECG personally reviewed - Physical Exam Ears, Nose, Mouth, Throat: other (multiple abrasions on forehead) Cardiovascular: regular rate and rhythym, no murmur, rub, or gallop Respiratory: no respiratory distress, no rales or rhonchi, clear to auscultation Gastrointestinal: normoactive bowel sounds, soft, non-tender abdomen, no palpable masses Musculoskeletal: other (L foot with blackened toes; erythema and edema extending to mid segura) ICD10 Worksheet Patient Problems: Problems Problem Status Onset Situational depression Acute Seizure Acute Alcohol withdrawal Acute Abdominal pain Acute Alcohol intoxication Acute Reversible airways disease Acute Lactic acidosis Acute Multiple abrasions Acute Neck strain Acute Strain of mid-back Acute COPD (chronic obstructive pulmonary disease) Acute Alcohol abuse Acute Facial laceration Acute Laceration of eyebrow, left Acute Atrial fibrillation with RVR Acute Cold exposure Acute Dehydration Acute Frostbite Acute Cold exposure Acute Back pain Acute
[2017-02-28] MEDS: FLUTICASONE/SALMETER 250/50MCG DISKUS IH SCH ×3 (09:08→20:18)
[2017-02-28] MEDS ORDERED: VANCOMYCIN 1.25 GM in D5W 250 ML IV SCH (10:00)
[2017-02-28] MEDS: DILTIAZEM CD 120 MG CAP PO SCH (10:10)
[2017-02-28] MEDS: PHENYTOIN SODIUM EXTENDED 100 MG CAP PO SCH ×3 (10:10→22:12)
[2017-02-28] MEDS: clonazePAM 1 MG TAB PO SCH ×2 (10:11→22:14)
[2017-02-28] MEDS: NIFEdipine ER 30 MG TAB PO SCH (10:11)
[2017-02-28] MEDS: FERROUS SULFATE 325 MG TAB PO SCH (10:11)
[2017-02-28] MEDS: PANTOPRAZOLE SODIUM 40 MG TAB PO SCH (10:11)
[2017-02-28] MEDS: ASPIRIN EC 325 MG TAB PO SCH (10:12)
[2017-02-28] MEDS: ENOXAPARIN 120 MG/0.8 ML SYR SC SCH ×2 (10:13→22:07)
[2017-02-28] MEDS: LIDOCAINE 5% 1 EA PATCH TD SCH (10:14)
[2017-02-28] MEDS: VANCOMYCIN HCL/NORMAL SALINE 250 ML IV SCH ×2 (11:29→18:25)
--- NOTE | 2017-02-28 23:53 | SOAPPROG ---
SOAP Progress Note Assessment/Plan: Assessment: 51-year-old male homeless with the frostbite of his left foot/patient was strapped outside for over 2 hours in the a cold weather after falling down Presently complains of numbness and pain in his left foot states that his right foot is doing fine Denies drinking last night Extremities reveal full range of motion but with decreased sensation in the left toes/full distal pulses/purplish discoloration of his distal left foot and toes Impression significant left foot frostbite Plan: Plan is re-warm/wound care/Lovenox and aspirin/apparently cannot take gabapentin or and Procardia for other medical interactions/consider angiography 02/25/17 20:20 02/28/17 23:52 CONTINUE TO DEMARCATE IN HIS TOES WITH SOME PAIN, BUT GOOD PULSES/LARGE STUDIES OKAY/CONTINUE OBSERVATION Objective: Vital Signs Temp Pulse Resp BP Pulse Ox 37.8 C 100 16 109/62 94 02/28/17 20:28 02/28/17 20:28 02/28/17 23:27 02/28/17 20:28 02/28/17 23:27 Microbiology 02/28/17 10:15 Gram Stain - Final Foot - Anaerobic Tube/Swab Laboratory Results 02/28/17 04:48 02/28/17 04:48 02/27/17 02/28/17 03/01/17 05:59 05:59 05:59 Intake Total 6167 1750 6505 Output Total 2675 430 975 Balance 3492 1320 5530 PT 14.7 SEC (12.0-15.0) 02/26/17 07:48 INR 1.13 (0.83-1.16) 02/26/17 07:48 ICD10 Worksheet Patient Problems: Problems Problem Status Onset Back pain Acute Cold exposure Acute Frostbite Acute Abdominal pain Acute Alcohol abuse Acute Alcohol intoxication Acute Alcohol withdrawal Acute Atrial fibrillation with RVR Acute COPD (chronic obstructive pulmonary disease) Acute Cold exposure Acute Dehydration Acute Facial laceration Acute Laceration of eyebrow, left Acute Lactic acidosis Acute Multiple abrasions Acute Neck strain Acute Reversible airways disease Acute Seizure Acute Situational depression Acute Strain of mid-back Acute
[2017-03-01] MEDS: PATCH REMOVAL 1 EA PATCH TD SCH ×2 (02:24→23:36)
[2017-03-01] MEDS: VANCOMYCIN HCL/NORMAL SALINE 250 ML IV SCH ×2 (02:26→11:48)
[2017-03-01] MEDS: LR 1,000 ML IV SCH (02:27)
[2017-03-01] MEDS: oxyCODONE IR 5 MG TAB PO PRN ×5 (02:42→20:35)
[2017-03-01] MEDS: ALBUTEROL 60 PUFFS/8 GM MDI IH SCH ×5 (05:07→19:48)
[2017-03-01 05:23] LABS: PLATELET COUNT 209 10^3/uL (150-400)
[2017-03-01] MEDS: LORazepam 1 MG TAB PO SCH ×3 (05:37→20:38)
[2017-03-01] MEDS: FLUTICASONE/SALMETER 250/50MCG DISKUS IH SCH ×2 (08:13→19:45)
[2017-03-01] MEDS: HYDROmorphONE/DILAUDID 1 MG/ML INJ IVP PRN ×3 (08:20→20:35)
--- NOTE | 2017-03-01 09:26 | HOSPPROG ---
Hospitalist Progress Note Assessment/Plan: # frostbite, with soft tissue infection - cont procardia, aspirin, lovenox (now at treatment dose after discussing with boone mcdonald) # cellulitis - changed to vanc given purulence; wound culture pending - elevate leg - ID consult # sepsis (fever, tachy, cellulitis), POA - vitals better today - blood cultures pending, no hypotension # tachycardia - resolved - stop IVF # anemia - continues to worsen; unclear why this is trending down - transfuse for hgb < 7 # etOH abuse and withdrawal; at risk for severe w/d - cont CIWA # hypoNa - better # neuropathy - likely d/t etOH; B12 ok # seizure disorder - cont dilantin, treat w/d - dilantin level low; procardia may increase serum levels; recheck dilantin level in a few days # COPD - currently on RA # mild rhabdo - resolving # nodular consolidation on CT - needs outpatient f/u # DVT ppx - lovenox Subjective: says he feels better Objective: Vital Signs Temp Pulse Resp BP Pulse Ox 36.7 C 94 12 131/80 H 97 03/01/17 07:57 03/01/17 08:15 03/01/17 08:15 03/01/17 07:57 03/01/17 08:15 Microbiology 02/28/17 10:15 Gram Stain - Final Foot - Anaerobic Tube/Swab Laboratory Results 03/01/17 05:05 03/01/17 05:05 02/28/17 03/01/17 03/02/17 05:59 05:59 05:59 Intake Total 1750 8823 Output Total 430 1275 100 Balance 1320 7548 -100 PT 14.7 SEC (12.0-15.0) 02/26/17 07:48 INR 1.13 (0.83-1.16) 02/26/17 07:48 high risk - Physical Exam Constitutional: unkempt Cardiovascular: regular rate and rhythym, no murmur, rub, or gallop Respiratory: no respiratory distress, no rales or rhonchi, clear to auscultation Gastrointestinal: normoactive bowel sounds, soft, non-tender abdomen, no palpable masses Musculoskeletal: other (L foot with darkened first two digits; erythema, edema to knee) ICD10 Worksheet Patient Problems: Problems Problem Status Onset Situational depression Acute Seizure Acute Alcohol withdrawal Acute Abdominal pain Acute Alcohol intoxication Acute Reversible airways disease Acute Lactic acidosis Acute Multiple abrasions Acute Neck strain Acute Strain of mid-back Acute COPD (chronic obstructive pulmonary disease) Acute Alcohol abuse Acute Facial laceration Acute Laceration of eyebrow, left Acute Atrial fibrillation with RVR Acute Cold exposure Acute Dehydration Acute Frostbite Acute Cold exposure Acute Back pain Acute
[2017-03-01] MEDS: PANTOPRAZOLE SODIUM 40 MG TAB PO SCH (10:10)
[2017-03-01] MEDS: FERROUS SULFATE 325 MG TAB PO SCH (10:10)
[2017-03-01] MEDS: DILTIAZEM CD 120 MG CAP PO SCH (10:10)
[2017-03-01] MEDS: NIFEdipine ER 30 MG TAB PO SCH (10:10)
[2017-03-01] MEDS: ASPIRIN EC 325 MG TAB PO SCH (10:11)
[2017-03-01] MEDS: clonazePAM 1 MG TAB PO SCH ×2 (10:11→20:38)
[2017-03-01] MEDS: PHENYTOIN SODIUM EXTENDED 100 MG CAP PO SCH ×3 (10:11→20:35)
[2017-03-01] MEDS: ENOXAPARIN 120 MG/0.8 ML SYR SC SCH ×2 (10:13→20:35)
[2017-03-01] MEDS: LIDOCAINE 5% 1 EA PATCH TD SCH (10:46)
[2017-03-01] MEDS: VANCOMYCIN 1.25 GM in D5W 250 ML IV SCH ×2 (11:48→20:34)
--- NOTE | 2017-03-01 15:26 | ASMTCMCOM ---
CM Note CM Note Notes: Surgery continues to observe pt's left foot where he has frostbite. Pt currently on IV ABX. Pt's DC needs unclear at this time. CM will continue to follow. Date Signed: 03/01/2017 03:25 PM Electronically Signed By:Judi Hernandez LCSW
[2017-03-02] MEDS: oxyCODONE IR 5 MG TAB PO PRN ×5 (00:16→21:00)
[2017-03-02] MEDS: LORazepam 1 MG TAB PO PRN ×4 (00:17→20:59)
[2017-03-02] MEDS: chlordiazePOXIDE 25 MG CAP PO PRN ×2 (02:15→05:48)
[2017-03-02] MEDS: VANCOMYCIN 1.25 GM in D5W 250 ML IV SCH (04:12)
[2017-03-02] MEDS: ALBUTEROL 60 PUFFS/8 GM MDI IH SCH ×6 (05:11→20:08)
[2017-03-02 05:42] LABS: PLATELET COUNT 226 10^3/uL (150-400)
[2017-03-02] MEDS: LORazepam 1 MG TAB PO SCH (05:49)
[2017-03-02] MEDS: FLUTICASONE/SALMETER 250/50MCG DISKUS IH SCH ×2 (07:55→20:08)
[2017-03-02] MEDS: clonazePAM 1 MG TAB PO SCH ×2 (08:36→21:00)
[2017-03-02] MEDS: PHENYTOIN SODIUM EXTENDED 100 MG CAP PO SCH ×3 (08:37→20:59)
[2017-03-02] MEDS: NIFEdipine ER 30 MG TAB PO SCH (08:37)
[2017-03-02] MEDS: ENOXAPARIN 120 MG/0.8 ML SYR SC SCH (08:38)
[2017-03-02] MEDS: ASPIRIN EC 325 MG TAB PO SCH (08:38)
[2017-03-02] MEDS: DILTIAZEM CD 120 MG CAP PO SCH (08:38)
[2017-03-02] MEDS: PANTOPRAZOLE SODIUM 40 MG TAB PO SCH (08:38)
[2017-03-02] MEDS: FERROUS SULFATE 325 MG TAB PO SCH (08:38)
[2017-03-02] MEDS: LIDOCAINE 5% 1 EA PATCH TD SCH (09:25)
[2017-03-02] MEDS ORDERED: ceFAZolin 2 GM/DEXTROSE 100 ML IV SCH (10:00)
[2017-03-02] MEDS ORDERED: GADOBUTROL 10 ML VIAL IVP ONE (10:01)
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
--- NOTE | 2017-03-02 10:59 | HOSPPROG ---
Hospitalist Progress Note Assessment/Plan: # frostbite, with soft tissue infection - cont procardia, aspirin, lovenox (will go back to ppx dose with low hgb) # cellulitis - appreciate ID, will check MRI of foot, change to ancef and clinda for now # sepsis (fever, tachy, cellulitis), POA - vitals better today - blood cultures pending, no hypotension # tachycardia - resolved # anemia - stable today, follow - transfuse for hgb < 7 # etOH abuse and withdrawal; at risk for severe w/d - cont CIWA # hypoNa - better # neuropathy - likely d/t etOH; B12 ok # seizure disorder - cont dilantin, treat w/d - dilantin level low; procardia may increase serum levels; recheck dilantin level tomorrow # COPD - currently on RA # mild rhabdo - resolving # nodular consolidation on CT - needs outpatient f/u # DVT ppx - lovenox Subjective: feels about the same; some diarrhea Objective: Vital Signs Temp Pulse Resp BP Pulse Ox 36.9 C 90 16 123/67 H 97 03/02/17 07:38 03/02/17 07:38 03/02/17 07:38 03/02/17 07:38 03/02/17 07:38 Microbiology 02/28/17 10:15 Gram Stain - Final Foot - Anaerobic Tube/Swab Wound Culture - Final Laboratory Results 03/02/17 04:38 03/02/17 04:38 03/01/17 03/02/17 03/03/17 05:59 05:59 05:59 Intake Total 8823 1488 Output Total 1275 1150 380 Balance 7548 338 -380 PT 14.7 SEC (12.0-15.0) 02/26/17 07:48 INR 1.13 (0.83-1.16) 02/26/17 07:48 - Physical Exam Constitutional: no apparent distress, appears nourished Eyes: anicteric sclera Ears, Nose, Mouth, Throat: hearing normal Cardiovascular: edema Respiratory: no respiratory distress Gastrointestinal: No distension Genitourinary: No benitez in urethra Skin: warm Musculoskeletal: other (L foot with darkened toes, pink erythema) Neurologic: AAOx3 Psychiatric: not anxious ICD10 Worksheet Patient Problems: Problems Problem Status Onset Situational depression Acute Seizure Acute Alcohol withdrawal Acute Abdominal pain Acute Alcohol intoxication Acute Reversible airways disease Acute Lactic acidosis Acute Multiple abrasions Acute Neck strain Acute Strain of mid-back Acute COPD (chronic obstructive pulmonary disease) Acute Alcohol abuse Acute Facial laceration Acute Laceration of eyebrow, left Acute Atrial fibrillation with RVR Acute Cold exposure Acute Dehydration Acute Frostbite Acute Cold exposure Acute Back pain Acute
[2017-03-02] MEDS: ceFAZolin 2 GM/SWFI 2 GM/20 ML SYR IVP SCH ×2 (11:42→18:18)
[2017-03-02] MEDS: CLINDAMYCIN 600 MG/DEXTROSE 50 ML IV SCH ×2 (11:43→18:18)
[2017-03-02] MEDS: HYDROmorphONE/DILAUDID 1 MG/ML INJ IVP PRN (13:45)
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
[2017-03-02] MEDS ORDERED: LORazepam 2 MG/ML INJ IVP ONE (18:15)
[2017-03-02] MEDS: LORazepam 2 MG/ML INJ IVP PRN (23:21)
[2017-03-03] MEDS: PATCH REMOVAL 1 EA PATCH TD SCH ×2 (01:03→21:38)
[2017-03-03] MEDS: ALBUTEROL 60 PUFFS/8 GM MDI IH SCH ×6 (01:04→19:35)
[2017-03-03] MEDS: ceFAZolin 2 GM/SWFI 2 GM/20 ML SYR IVP SCH ×3 (01:41→18:17)
[2017-03-03] MEDS: CLINDAMYCIN 600 MG/DEXTROSE 50 ML IV SCH ×3 (01:45→18:17)
[2017-03-03] MEDS: oxyCODONE IR 5 MG TAB PO PRN ×4 (02:26→17:14)
[2017-03-03] MEDS: LORazepam 1 MG TAB PO PRN (02:27)
[2017-03-03 06:13] LABS: PLATELET COUNT 242 10^3/uL (150-400)
[2017-03-03] MEDS: FLUTICASONE/SALMETER 250/50MCG DISKUS IH SCH ×2 (08:18→19:35)
[2017-03-03] MEDS: PHENYTOIN SODIUM EXTENDED 100 MG CAP PO SCH ×3 (08:29→21:36)
[2017-03-03] MEDS: PANTOPRAZOLE SODIUM 40 MG TAB PO SCH (08:29)
[2017-03-03] MEDS: DILTIAZEM CD 120 MG CAP PO SCH (08:29)
[2017-03-03] MEDS: NIFEdipine ER 30 MG TAB PO SCH (08:30)
[2017-03-03] MEDS: clonazePAM 1 MG TAB PO SCH ×2 (08:30→21:35)
[2017-03-03] MEDS: ASPIRIN EC 325 MG TAB PO SCH (08:30)
[2017-03-03] MEDS: ENOXAPARIN 40 MG/0.4 ML SYR SC SCH (08:30)
[2017-03-03] MEDS: FERROUS SULFATE 325 MG TAB PO SCH (08:32)
[2017-03-03] MEDS: LIDOCAINE 5% 1 EA PATCH TD SCH (08:33)
[2017-03-03] MEDS: HYDROmorphONE/DILAUDID 1 MG/ML INJ IVP PRN ×4 (10:39→21:35)
[2017-03-03] MEDS: LORazepam 2 MG/ML INJ IVP PRN (11:47)
--- NOTE | 2017-03-03 12:35 | HOSPPROG ---
Hospitalist Progress Note Assessment/Plan: # frostbite, with soft tissue infection - cont procardia, aspirin, lovenox (will go back to ppx dose with low hgb) # cellulitis - appreciate ID, currently on ancef and clinda; Dr Escobar feels no need for debridement # sepsis (fever, tachy, cellulitis), POA - vitals better today - blood cultures pending, no hypotension # anemia - stable today, follow - transfuse for hgb < 7 # encephalopathy - unclear if this is etOH related or not; may be more delirium from infection, etc - he is hospital day 5 making w/d less likely - will attempt to dc CIWA, prn benzos; trial of zyprexa tonight # etOH abuse and ?withdrawal - cont CIWA # hypoNa - better # neuropathy - likely d/t etOH; B12 ok # seizure disorder - cont dilantin, Klonopin - dilantin level low; procardia may increase serum levels - check dilantin in a few days # COPD - currently on RA # mild rhabdo - resolving # nodular consolidation on CT - needs outpatient f/u # DVT ppx - lovenox Subjective: difficult night, very confused and impulsive Objective: Vital Signs Temp Pulse Resp BP Pulse Ox 36.6 C 90 16 123/80 H 91 L 03/03/17 12:21 03/03/17 12:21 03/03/17 12:21 03/03/17 12:21 03/03/17 12:21 Microbiology 02/28/17 10:15 Gram Stain - Final Foot - Anaerobic Tube/Swab Wound Culture - Final Laboratory Results 03/03/17 05:56 03/03/17 04:36 03/02/17 03/03/17 03/04/17 05:59 05:59 05:59 Intake Total 1488 2450 Output Total 1150 2160 875 Balance 338 290 -875 PT 14.7 SEC (12.0-15.0) 02/26/17 07:48 INR 1.13 (0.83-1.16) 02/26/17 07:48 MRI reviewed discussed with Dr Garcia - Physical Exam Constitutional: no apparent distress Cardiovascular: regular rate and rhythym, no murmur, rub, or gallop Respiratory: no respiratory distress, no rales or rhonchi Gastrointestinal: normoactive bowel sounds, soft, non-tender abdomen Musculoskeletal: other (ongoing LLE erythema, edema extending to mid segura; blisters on foot) ICD10 Worksheet Patient Problems: Problems Problem Status Onset Situational depression Acute Seizure Acute Alcohol withdrawal Acute Abdominal pain Acute Alcohol intoxication Acute Reversible airways disease Acute Lactic acidosis Acute Multiple abrasions Acute Neck strain Acute Strain of mid-back Acute COPD (chronic obstructive pulmonary disease) Acute Alcohol abuse Acute Facial laceration Acute Laceration of eyebrow, left Acute Atrial fibrillation with RVR Acute Cold exposure Acute Dehydration Acute Frostbite Acute Cold exposure Acute Back pain Acute
[2017-03-03] MEDS: NICOTINE 21 MG/24 HR PATCH TD SCH (13:00)
[2017-03-03] MEDS: THIAMINE HCL 100 MG TAB PO SCH (13:00)
--- NOTE | 2017-03-03 14:14 | PCMIDPN ---
Assessment/Plan: Assessment/Plan: 1. LLE cellulitis with blisters/frostbite of toes: - Erythema stable today. Blisters stable. -MRI LE: fluid along tendon sheaths, no osteo. no abscess -Reviewed and discussed with Dr. Escobar. no debridement at this time -Continue with ancef + clinda -Discussed importance of LE elevation wiht patient,Rn -care coordiated with hospitalist team, surgery, Rn, -labs stable - blood cx ngtd Meds ancef 2g q8- clinda 600mg q8- Subjective: afebrile. Denies sob, abd pain or diarrhea. not elevating LE well. c/o pain. Objective: Vital Signs Temp Pulse Resp BP Pulse Ox 36.6 C 90 16 123/80 H 91 L 03/03/17 12:21 03/03/17 12:21 03/03/17 12:21 03/03/17 12:21 03/03/17 12:21 Microbiology 02/28/17 10:15 Gram Stain - Final Foot - Anaerobic Tube/Swab Wound Culture - Final Laboratory Results 03/03/17 05:56 03/03/17 04:36 03/02/17 03/03/17 03/04/17 05:59 05:59 05:59 Intake Total 1488 2450 Output Total 1150 2160 875 Balance 338 290 -875 - Physical Exam General Appearance: alert, no apparent distress Respiratory: lungs clear Cardiac/Chest: regular rate, rhythm Extremities: swelling, other (left foot: with erythema on foot and leg. edematous. blisters noted on toes, dorsum and plantar aspect of foot. early necrosis of toes. tender. ) Abdomen: normal bowel sounds, non-tender, soft, No distended Skin: other (wounds on Left forearm and abdomen with some drainage. dressing noted. ) ICD10 Worksheet Patient Problems: Problems Problem Status Onset Back pain Acute Cold exposure Acute Frostbite Acute Abdominal pain Acute Alcohol abuse Acute Alcohol intoxication Acute Alcohol withdrawal Acute Atrial fibrillation with RVR Acute COPD (chronic obstructive pulmonary disease) Acute Cold exposure Acute Dehydration Acute Facial laceration Acute Laceration of eyebrow, left Acute Lactic acidosis Acute Multiple abrasions Acute Neck strain Acute Reversible airways disease Acute Seizure Acute Situational depression Acute Strain of mid-back Acute
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
[2017-03-03] MEDS ORDERED: OLANZapine 5 MG TAB PO SCH (21:00)
[2017-03-04] MEDS: oxyCODONE IR 5 MG TAB PO PRN ×6 (00:01→22:17)
[2017-03-04] MEDS: ALBUTEROL 60 PUFFS/8 GM MDI IH SCH ×7 (00:07→23:02)
[2017-03-04] MEDS: CLINDAMYCIN 600 MG/DEXTROSE 50 ML IV SCH ×3 (01:39→23:21)
[2017-03-04] MEDS ORDERED: LORazepam 2 MG/ML INJ IVP PRN (01:59)
[2017-03-04] MEDS: ceFAZolin 2 GM/SWFI 2 GM/20 ML SYR IVP SCH ×3 (02:20→18:00)
[2017-03-04 05:23] LABS: PLATELET COUNT 295 10^3/uL (150-400)
[2017-03-04] MEDS: DILTIAZEM CD 120 MG CAP PO SCH (08:06)
[2017-03-04] MEDS: ASPIRIN EC 325 MG TAB PO SCH (08:06)
[2017-03-04] MEDS: PANTOPRAZOLE SODIUM 40 MG TAB PO SCH (08:06)
[2017-03-04] MEDS: THIAMINE HCL 100 MG TAB PO SCH (08:06)
[2017-03-04] MEDS: clonazePAM 1 MG TAB PO SCH (08:08)
[2017-03-04] MEDS: NIFEdipine ER 30 MG TAB PO SCH (08:08)
[2017-03-04] MEDS: NICOTINE 21 MG/24 HR PATCH TD SCH (08:08)
[2017-03-04] MEDS: FERROUS SULFATE 325 MG TAB PO SCH (08:08)
[2017-03-04] MEDS: PHENYTOIN SODIUM EXTENDED 100 MG CAP PO SCH ×3 (08:08→22:18)
[2017-03-04] MEDS: ENOXAPARIN 40 MG/0.4 ML SYR SC SCH (09:29)
[2017-03-04] MEDS: FLUTICASONE/SALMETER 250/50MCG DISKUS IH SCH ×2 (09:44→19:39)
[2017-03-04] MEDS: LIDOCAINE 5% 1 EA PATCH TD SCH (10:25)
[2017-03-04] MEDS ORDERED: POTASSIUM CL 20 MEQ TAB PO ONE (11:15)
--- NOTE | 2017-03-04 11:17 | HOSPPROG ---
Hospitalist Progress Note Assessment/Plan: # frostbite, with soft tissue infection - cont procardia, aspirin, lovenox (ppx dose with low hgb) - surgery following, no indication for operative intervention at this time # cellulitis - cont ancef, clinda, ID following. # sepsis (fever, tachy, cellulitis), sepsis physiology resolved, BCx's NGTD. # anemia - stable today, follow - transfuse for hgb < 7 # encephalopathy - ?delirium from infection, seems improved today - prn zyprexa at bedtime - change klonopin to prn, he does not use this scheduled as outpt and is getting it scheduled here # etOH abuse and ?withdrawal - no signs of w/d today, ciwa d/c'd - d/c IV ativan # hypoNa - better # neuropathy - likely d/t etOH; B12 ok # seizure disorder - cont dilantin, Klonopin - dilantin level low; procardia may increase serum levels - check dilantin in a few days # COPD - currently on RA # mild rhabdo - resolving # nodular consolidation on CT - needs outpatient f/u # DVT ppx - lovenox Subjective: Pt doing better, more alert today. C/O burning pain in his toes. No fevers/chills. No CP or SOB. Objective: Vital Signs Temp Pulse Resp BP Pulse Ox 36.4 C 90 18 127/87 H 94 03/04/17 08:00 03/04/17 08:06 03/04/17 08:00 03/04/17 08:06 03/04/17 09:47 Laboratory Results 03/04/17 05:01 03/04/17 05:01 03/03/17 03/04/17 03/05/17 05:59 05:59 05:59 Intake Total 2450 1800 Output Total 2160 875 Balance 290 925 PT 14.7 SEC (12.0-15.0) 02/26/17 07:48 INR 1.13 (0.83-1.16) 02/26/17 07:48 - Physical Exam Constitutional: no apparent distress Eyes: PERRL Ears, Nose, Mouth, Throat: moist mucous membranes Cardiovascular: regular rate and rhythym Respiratory: no respiratory distress Gastrointestinal: normoactive bowel sounds, soft, non-tender abdomen Skin: other (necrotic toes on the left with blisters and surrounding erythema) Musculoskeletal: full muscle strength Neurologic: AAOx3 Psychiatric: interacting appropriately ICD10 Worksheet Patient Problems: Problems Problem Status Onset Back pain Acute Cold exposure Acute Frostbite Acute Abdominal pain Acute Alcohol abuse Acute Alcohol intoxication Acute Alcohol withdrawal Acute Atrial fibrillation with RVR Acute COPD (chronic obstructive pulmonary disease) Acute Cold exposure Acute Dehydration Acute Facial laceration Acute Laceration of eyebrow, left Acute Lactic acidosis Acute Multiple abrasions Acute Neck strain Acute Reversible airways disease Acute Seizure Acute Situational depression Acute Strain of mid-back Acute
[2017-03-04] MEDS ORDERED: OLANZapine 5 MG TAB PO PRN (11:23)
[2017-03-04] MEDS: HYDROmorphONE/DILAUDID 1 MG/ML INJ IVP PRN ×3 (11:43→20:20)
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
--- NOTE | 2017-03-04 20:48 | PCMIDPN ---
Assessment/Plan: Assessment/Plan: * Left lower extremity cellulitis associated with frostbite injury: Cellulitis is improving. Continues to have scattered blisters, eschar, and necrosis of distal portions of toes. Will continue cefazolin given clinical improvement. Think can discontinue clindamycin at this point in time given no evidence of necrotizing process. Continue lower extremity elevation. Continue local wound care. Patient not ready to transition to oral antibiotics currently although this may occur in next 24-48 hours. 03/04/17 20:45 Subjective: Patient eager for hospital discharge. Notes erythema and swelling of left lower extremity significantly decreased. Objective: Vital Signs Temp Pulse Resp BP Pulse Ox 36.7 C 94 18 132/83 H 93 03/04/17 19:57 03/04/17 19:57 03/04/17 19:57 03/04/17 19:57 03/04/17 19:57 Microbiology 02/27/17 11:57 Blood Culture - Final Blood 02/27/17 11:57 Blood Culture - Final Blood Laboratory Results 03/04/17 05:01 03/04/17 05:01 03/03/17 03/04/17 03/05/17 05:59 05:59 05:59 Intake Total 2450 1800 Output Total 2160 875 Balance 290 925 Cefazolin # 3 Clindamycin # 3 Blood cultures x2 no growth Foot culture with mixed cutaneous rodney - Physical Exam General Appearance: alert, no apparent distress, non-toxic EENT: No scleral icterus, No thrush Extremities: inflammation (Left lower extremity with faint residual erythema over lower portion with associated edema which extends to dorsal aspect of foot ; scattered eschar, denuded skin, and bulla over plantar aspect with some separation of heel skin; necrosis of tips of several toes present) Abdomen: non-tender, No distended ICD10 Worksheet Patient Problems: Problems Problem Status Onset Back pain Acute Cold exposure Acute Frostbite Acute Abdominal pain Acute Alcohol abuse Acute Alcohol intoxication Acute Alcohol withdrawal Acute Atrial fibrillation with RVR Acute COPD (chronic obstructive pulmonary disease) Acute Cold exposure Acute Dehydration Acute Facial laceration Acute Laceration of eyebrow, left Acute Lactic acidosis Acute Multiple abrasions Acute Neck strain Acute Reversible airways disease Acute Seizure Acute Situational depression Acute Strain of mid-back Acute
[2017-03-04] MEDS: PATCH REMOVAL 1 EA PATCH TD SCH (22:19)
[2017-03-04] MEDS: clonazePAM 1 MG TAB PO PRN (22:22)
[2017-03-04] MEDS ORDERED: MELATONIN 3 MG TAB PO PRN (23:58)
[2017-03-05] MEDS: HYDROmorphONE/DILAUDID 1 MG/ML INJ IVP PRN ×4 (00:38→10:57)
[2017-03-05] MEDS: ceFAZolin 2 GM/SWFI 2 GM/20 ML SYR IVP SCH ×2 (01:13→11:11)
[2017-03-05] MEDS: oxyCODONE IR 5 MG TAB PO PRN ×2 (03:56→09:51)
[2017-03-05] MEDS: ALBUTEROL 60 PUFFS/8 GM MDI IH SCH ×3 (04:59→11:03)
[2017-03-05] MEDS: FLUTICASONE/SALMETER 250/50MCG DISKUS IH SCH (08:49)
[2017-03-05] MEDS: NIFEdipine ER 30 MG TAB PO SCH (09:40)
[2017-03-05] MEDS: ASPIRIN EC 325 MG TAB PO SCH (09:40)
[2017-03-05] MEDS: PANTOPRAZOLE SODIUM 40 MG TAB PO SCH (09:41)
[2017-03-05] MEDS: PHENYTOIN SODIUM EXTENDED 100 MG CAP PO SCH (09:41)
[2017-03-05] MEDS: DILTIAZEM CD 120 MG CAP PO SCH (09:41)
[2017-03-05] MEDS: FERROUS SULFATE 325 MG TAB PO SCH (09:41)
[2017-03-05] MEDS: THIAMINE HCL 100 MG TAB PO SCH (09:41)
[2017-03-05] MEDS: ENOXAPARIN 40 MG/0.4 ML SYR SC SCH (09:42)
[2017-03-05] MEDS: clonazePAM 1 MG TAB PO PRN (09:51)
[2017-03-05] MEDS: LIDOCAINE 5% 1 EA PATCH TD SCH (10:16)
[2017-03-05] MEDS: NICOTINE 21 MG/24 HR PATCH TD SCH (10:16)
[2017-03-05 11:38] VITALS: BP 117/64; PULSE 92; RESP 16; TEMP 97.6; O2SAT 87
--- NOTE | 2017-03-05 11:52 | HOSPPROG ---
Hospitalist Progress Note Assessment/Plan: # frostbite, with soft tissue infection - cont procardia, aspirin, lovenox (ppx dose with low hgb) - surgery following, no indication for operative intervention at this time # cellulitis - cont ancef, clinda d/c'd, ID following. # sepsis (fever, tachy, cellulitis), sepsis physiology resolved, BCx's NGTD. # anemia - stable today, follow - transfuse for hgb < 7 # encephalopathy - ?delirium from infection, seems improved today - prn zyprexa at bedtime - changed klonopin to prn, he does not use this scheduled as outpt and is getting it scheduled here # etOH abuse and ?withdrawal - no signs of w/d today, ciwa d/c'd - d/c IV ativan # hypoNa - better # neuropathy - likely d/t etOH; B12 ok # seizure disorder - cont dilantin, Klonopin - dilantin level low; procardia may increase serum levels - check dilantin in a few days # COPD - currently on RA # mild rhabdo - resolving # nodular consolidation on CT - needs outpatient f/u # DVT ppx - lovenox # Dispo - pt opted to leave against medical advice today. He exhibited capacity to make an informed decision and I informed him he is at risk for loss of limb and/or loss of life if he has recurrent frostbite or worsening infection. It is not recommended he leave the hospital, but he opted to do so despite acknowledging the risks. Hospital summary dictated at 20:30 Objective: Vital Signs Temp Pulse Resp BP Pulse Ox 36.4 C 92 16 117/64 87 L 03/05/17 11:34 03/05/17 11:34 03/05/17 11:34 03/05/17 11:34 03/05/17 11:34 Microbiology 02/27/17 11:57 Blood Culture - Final Blood 02/27/17 11:57 Blood Culture - Final Blood Laboratory Results 03/04/17 05:01 03/05/17 04:32 03/04/17 03/05/17 03/06/17 05:59 05:59 05:59 Intake Total 1800 1200 Output Total 875 2 Balance 925 1198 PT 14.7 SEC (12.0-15.0) 02/26/17 07:48 INR 1.13 (0.83-1.16) 02/26/17 07:48 ICD10 Worksheet Patient Problems: Problems Problem Status Onset Abdominal pain Acute Alcohol abuse Acute Alcohol intoxication Acute Alcohol withdrawal Acute Atrial fibrillation with RVR Acute Back pain Acute COPD (chronic obstructive pulmonary disease) Acute Cold exposure Acute Cold exposure Acute Dehydration Acute Facial laceration Acute Frostbite Acute Laceration of eyebrow, left Acute Lactic acidosis Acute Multiple abrasions Acute Neck strain Acute Reversible airways disease Acute Seizure Acute Situational depression Acute Strain of mid-back Acute
--- NOTE | 2017-03-05 21:04 | GDS ---
[f rep st] DISCHARGE SUMMARY DEPARTURE AGAINST MEDICAL ADVICE NOTE. DIAGNOSES: At the time of his AMA departure: 1. Frostbite of the left lower extremity with necrotic changes and cellulitis. 2. Sepsis secondary to cellulitis, sepsis physiology has resolved. 3. Anemia, stable. 4. Encephalopathy, resolved. 5. History of alcohol abuse. 6. Hyponatremia, resolved. 7. Seizure disorder. The patient remained seizure-free. 8. Chronic obstructive pulmonary disease, stable on room air at the time of discharge without evidence of exacerbation. 9. Mild rhabdomyolysis, resolved. 10. Nodular consolidation on CT scan. Needs outpatient followup imaging. CONSULTANTS: 1. Dr. Eileen Garcia, Infectious Disease. 2. Dr. Finn Escobar, General Surgery. HISTORY: For details please see the history and physical dated February 25, 2017. In brief, the patient is a 51-year-old, homeless male who has recently been living on the street as he [facility]. He presented to the emergency department with lower extremity numbness, tingling, and weakness and was found to have significant frostbite to his left lower extremity. He was admitted to hospital for further management. HOSPITAL COURSE: The patient was admitted to the medical/surgical unit. Surgery consult was obtained regarding his frostbite injury. He was treated with aspirin and Procardia and his foot was rewarmed. His pulses remained intact. He did develop some necrotic changes on his toes and plantar surface of his foot, though no surgical intervention was recommended. During the hospitalization, he developed erythema and changes consistent with cellulitis. He was treated with IV Ancef with some clinical improvement noted. He received wound care with frequent dressing changes. Today, the patient became very adamant that he needed to leave the hospital and return [facility] the [facility]. He states he is now allowed to return there after a 30 day ban. Myself and Dr. Garcia both negotiated with the patient to try to get him to stay and I discussed with him that he could have a limb threatening situation if he leaves against medical advice and suffers recurrent frostbite injury. In addition, he is at risk of developing septic shock. Either of these scenarios could lead to . He understands and verbalizes this back to me. He is alert and oriented and has capacity to make medical decisions and despite our urges for him to stay, he opted to leave against medical advice. In the interest of harm reduction, I did provide him with a prescription for Ancef 500 mg q.6 hours for 10 days as well as aspirin and Procardia in an effort to maintain circulation to his foot. He received nursing and wound care instructions for how to dress and care for his foot. He did agree to follow up at [facility] as well as with Dr. Arnoldo Escobar. DISPOSITION: The patient left the hospital against medical advice despite my recommendation for him to stay. He acknowledges the risk of worsening frostbite injury which could become limb threatening as well as the risk of septic shock if he develops worsening infection. He understands either of these scenarios could result in and he still wishes to leave. FOLLOWUP: I urged him to follow up with general surgery as well as primary care at the [facility]. MEDICATIONS PROVIDED AT DISCHARGE: Cephalexin 500 mg p.o. q.6 hours #40, no refills. Nifedipine 30 mg p.o. daily #30, no refills. Aspirin 325 mg p.o. daily #30, no refills. He will continue all other outpatient medications as previously prescribed. /[id number]/MODL MTDD
== END 2017-03-05 12:52 | disposition left against medical advice (07) | DRG 871 ==
LOC: EDUNIT# → F1N 06:26
PROVIDERS: ADMIT Family Medicine; ATTEND Family Medicine
DX: A41.9 Sepsis, unspecified organism (principal); G93.40 Encephalopathy, unspecified; T34.822A Frostbite with tissue necrosis of left foot, initial encounter; L03.116 Cellulitis of left lower limb; E87.1 Hypo-osmolality and hyponatremia; M62.82 Rhabdomyolysis; D64.9 Anemia, unspecified; G40.409 Other generalized epilepsy and epileptic syndromes, not intractable, without status epilepticus; J44.9 Chronic obstructive pulmonary disease, unspecified; I10 Essential (primary) hypertension; G89.29 Other chronic pain; T69.8XXA Other specified effects of reduced temperature, initial encounter; F10.20 Alcohol dependence, uncomplicated; G62.9 Polyneuropathy, unspecified; Z59.0 Homelessness; Z72.0 Tobacco use
CPT/HCPCS: 80307; 82607-90; 96374; 97110-GP; 97116-GP; 97161-GP; 97530-GP; A9585; G0480; G8978-GP-CJ; G8979-GP-CI; J0295; J0690; J0692; J1170; J1650; J2060; J3370; J3411; J3475

== ENCOUNTER 2017-03-05 18:02 | Inpatient (IN) | payer OTHER, MEDICAID ==
--- NOTE | 2017-03-05 18:47 | EDPHY ---
General - History Smoking Status: Heavy smoker Narrative: CHIEF COMPLAINT: Found down HISTORY OF PRESENT ILLNESS: Patient presents by EMS with reports of being found lying down on the ground [place] bus station. Patient has complaints of pain in the lower extremities. He says he has been drinking alcohol and has history alcohol abuse, well known to this emergency department. Left AMA from the hospital today with left lower extremity cellulitis, bilateral wounds of the feet with frostbite of the left foot. He was followed by infectious disease and surgery. He was discharged home on Procardia, Keflex and his routine medications. He says he has been taking these. He reports increasing pain today. He reports drinking today. He denies chest pain but he does have a cough. Denies headache or neck pain. Denies a fall. Does not know if he has had a fever. He has not been vomiting. Has no abdominal complaints. No other associated complaints or modifying factors. REVIEW OF SYSTEMS: Ten systems reviewed and are negative unless otherwise noted in the HPI PCP: [facility]. Scheduled to see them next Saturday PAST MEDICAL HISTORY: Hypertension, dyslipidemia, alcohol abuse, COPD, seizure disorder PAST SURGICAL HISTORY: No recent surgeries SOCIAL HISTORY: Daily smoker. Alcohol abuse. Currently homeless FAMILY HISTORY: Noncontributory EXAMINATION General Appearance: Alert, unkempt Head: normocephalic, superficial abrasions to the forehead. No Rosenbaum sign. No raccoon eyes Eyes: Pupils equal and round, no conjunctival pallor or injection. EOMs intact. No nystagmus or dysconjugate gaze. ENT, Mouth: Mucous membranes dry. Airway patent. Neck: Normal inspection. Range not tested. C-collar placed . Midline trachea Respiratory: Mild rhonchi. No wheezing. No consolidation or diminishment. Cardiovascular: Regular rate and rhythm. No murmur Gastrointestinal: Abdomen is soft and nondistended. No tympany rigidity Back: non-tender, no bony abnormalities Neurological: Alert to person, place and time. Intermittently disoriented to time. Cranial nerves 2-12 grossly intact. Strength is symmetric in the arms and legs. Skin: Cool to touch. Multiple areas of skin tears and blisters to both feet with frostbite to multiple toes on the left foot. There is no crepitus or obvious gangrene. Extremities: Tenderness to palpation of both lower extremities. Ranging both feet and ankle symmetrically. Psychiatric: Mood and affect normal DIFFERENTIAL DIAGNOSES: Including but not limited to sepsis, alcohol abuse, acute alcohol intoxication, hepatic encephalopathy, cellulitis, frostbite, gangrene, trench foot MDM: 6:35 p.m. Patient found down at a bus station with acute alcohol intoxication suspected, on top of chronic alcohol abuse. His vital signs at time of admission or unremarkable. He is intermittently tachycardic. He is afebrile. He is not hypotensive or hypoxemic. Patient is a very complicated history with recent discharge from the hospital yesterday for left lower extremity cellulitis and frostbite. He was followed by infectious disease and transition to p.o. antibiotics. He was followed by general surgery with documentation no need for surgical intervention at time of discharge. Given the patient's complex medical history was immediately evaluated with blood cultures and lactic acid ordered despite lack of SIRS vitals at this time. CT scan of the head and cervical spine have been ordered. Chest x-ray ordered. IV fluid ordered. Dr. Blum will be notified 6:55 p.m. Initial lactic acid is 3.1. I have ordered the 30 milligram/kilogram IV fluid bolus, but this has already been infusing. 7:25 p.m. Chest x-ray is negative. Alcohol level is 257. 7:[address] Blum has evaluated the patient. 7:40 p.m. Notified by radiologist Dr. Kurtz. There is a nondisplaced fracture at C7 , right superior articular facet. Questionable chronicity. I re-evaluated the patient. He is neuro intact in the right upper extremity. He has no saddle anesthesia. His strength is 5/5 in the lower extremities. C-collar remains in place. 8:05 p.m. Case discussed with hospitalist Dr. Hutchins. She will admit the patient to her service. Requesting neurosurgery consultation with C-spine fracture. We are treating him with IV fluids and IV Ancef. 8:10 p.m. Case discussed with neurosurgeon Dr. Lake. He is requesting MRI of the cervical spine. He will provide consultation for the patient. 8:30 p.m. Patient is very difficult to manage. He has gotten out of bed several times. We have had to place him back into bed several times. He is trying to remove his IVs and C-collar repeatedly. He is on a detained or due to his intoxication and inability to make coherent medical decisions at this time. He has been admitted to the ICU due to his intoxication, CIWA score of 19. 10:00 p.m. Notified by RN that the patient's left external jugular IV has infiltrated. His repeat lactic acid is normal at 1.9. We will continue to attempt IV placement given his need for this. I have also ordered a PICC placement at this time. RN will contact the admitting physician as well. SUPERVISION: Patient was evaluated and examined in conjunction with my secondary supervising physician as documented. We have both examined the patient. (Luke Pozo) I have evaluated and participated in the management of this patient. My co- signature indicates that I have reviewed this chart and that I agree with the findings and the plan of care as documented. My personal history and physical findings include: This patient is known to me from previous emergency department visits. He has a history of alcohol abuse and seizure disorder for which she takes Dilantin. He left the hospital AMA earlier today. He was being treated for alcohol abuse/withdrawal and lower extremity cellulitis with frostbite. After leaving he drank alcohol and was found down outside. He is unable to provide the details of today's events to me. He is confused as to the events of the day, admits to drinking alcohol. He is oriented to person and hospital. On examination he is awake and confused, moving all 4 extremities spontaneously and equally. SAAD. EOMI. Tongue midline. Facial expressions symmetric. Heart is regular. Lungs are clear. Abdomen is soft and nontender. Lower extremities with dry gangrene of the feet, swelling, erythema. I reviewed the laboratory findings in the chest x-ray. CT scan of the neck reveals nondisplaced fracture at C7 involving the superior facet. It is not clear whether this is an acute injury. Neurosurgery has been consulted and requested MRI. Lactic acid is elevated. He does not meet SIRS or sepsis criteria. Although he has lower extremity cellulitis I do not suspect sepsis at this point in time. He has no insight into the severity of his medical problems and has been uncooperative in the emergency department. He is placed on a medical detain her for his safety. He is being admitted to the intensive care unit where he can be closely monitored, watched for signs of alcohol withdrawal, and appropriately treated for his huynh bite/cellulitis. MRI is pending. (Kya Blum) - Objective Vital Signs: Initial Vital Signs Temperature (C) 36.3 C 03/05/17 18:13 Heart Rate 98 03/05/17 18:13 Respiratory Rate 14 03/05/17 18:13 Blood Pressure 144/85 H 03/05/17 18:13 O2 Sat (%) 96 03/05/17 18:13 O2 Delivery Mode Nasal Cannula O2 (L/minute) 4 Allergies/Adverse Reactions: gabapentin Allergy (Verified 03/05/17 18:11) bee stings Allergy (Severe, Uncoded 03/05/17 18:11) Anaphylaxis Home Medications: Medication Instructions Recorded Albuterol [Proventil Inhaler HFA 1 - 2 puffs IH Q4H #1 mdi 01/19/17 (*)] Fluticasone/Salmeter 250/50Mcg 1 puffs IH BID 01/28/17 [Advair 250/50 (*)] Diltiazem Cd [Cardizem ER 120 MG 120 mg PO DAILY #8 cap 02/07/17 (*)] Pantoprazole Sodium [Protonix 40mg 40 mg PO DAILY #8 tab 02/07/17 (*)] Phenytoin Sodium Extended 100 mg PO TID #21 cap 02/07/17 [Dilantin (*)] clonazePAM [klonoPIN (*)] 1 mg PO BID #10 tab 02/07/17 Lisinopril/Hctz 20/12.5MG 1 ea PO DAILY 02/24/17 [Zestoretic/Prinzide 20/12.5MG (*)] Aspirin EC [Aspirin EC 325 mg (*)] 325 mg PO DAILY #30 tab 03/05/17 Cephalexin 500 mg PO Q6H #40 capsule 03/05/17 NIFEdipine ER [Adalat CC 30 mg (*)] 30 mg PO DAILY #30 tab 03/05/17 Laboratory Results: Laboratory Results 03/05/17 18:30 03/05/17 18:30 Microbiology Results: MICROBIOLOGY 03/05/17 19:05 Blood Blood Culture - Preliminary 03/05/17 18:30 Blood Blood Culture - Preliminary Medications Given: Albuterol (Proventil Inhaler) 2 puffs IH QID PADMA Stop: 07/23/18 20:59 Last Admin: 03/07/17 05:40 Dose: 2 puffs Aspirin Buffered (Aspirin Ec) 325 mg PO DAILY [facility] Stop: 09/02/17 08:59 Last Admin: 03/07/17 08:04 Dose: 325 mg Enoxaparin Sodium (Lovenox) 40 mg SC DAILY PADMA Stop: 09/02/17 08:59 Last Admin: 03/07/17 08:10 Dose: 40 mg Lisinopril/HCTZ (Zestoretic) 1 ea PO DAILY [facility]ADMA Stop: 09/02/17 08:59 Last Admin: 03/07/17 08:05 Dose: 1 ea Hydromorphone HCl (Dilaudid) 2 mg PO Q4HRS PRN PRN Reason: Pain, Severe Able to Take PO Stop: 03/16/17 09:22 Last Admin: 03/07/17 06:36 Dose: 2 mg Cefazolin Sodium/Dextrose (Ancef 1 Gm (Premix)) 50 mls @ 200 mls/hr IV Q8HRS PADMA PRN Reason: Protocol Stop: 04/05/17 05:59 Last Admin: 03/07/17 05:57 Dose: 50 mls Lorazepam (Ativan Injection) 1 - 2 mg IVP Q4 PRN PRN Reason: Anxiety, Unable to Take PO Stop: 09/01/17 22:24 Last Admin: 03/06/17 10:51 Dose: 2 mg Lorazepam (Ativan) 1 mg PO Q4HRS PRN PRN Reason: Anxiety, Able to Take PO Stop: 09/02/17 14:59 Last Admin: 03/07/17 08:04 Dose: 1 mg Metoprolol Tartrate (Lopressor) 25 mg PO BID [facility] Stop: 09/02/17 20:59 Last Admin: 03/07/17 08:04 Dose: 25 mg Nicotine (Nicoderm Cq) 14 mg TD DAILY [facility] Stop: 09/02/17 08:59 Last Admin: 03/07/17 08:05 Dose: 14 mg Nifedipine (Adalat Cc) 30 mg PO DAILY [facility] Stop: 09/02/17 08:59 Last Admin: 03/07/17 08:04 Dose: 30 mg Pantoprazole Sodium (Protonix) 40 mg PO DAILY [facility] Stop: 09/02/17 08:59 Last Admin: 03/07/17 08:04 Dose: 40 mg Phenytoin Sodium (Dilantin) 100 mg PO TID [facility] Stop: 09/02/17 08:59 Last Admin: 03/07/17 08:05 Dose: 100 mg Pregabalin (Lyrica) 25 mg PO TID [facility] Stop: 09/02/17 15:59 Last Admin: 03/07/17 08:05 Dose: 25 mg Fluticasone/Salmeterol (Advair) 1 puffs IH BID [facility] Stop: 09/02/17 08:59 Last Admin: 03/06/17 19:36 Dose: 1 puffs Discontinued Medications Albuterol (Proventil Inhaler) 1 - 2 puffs IH Q4H [facility] Stop: 09/01/17 22:14 Last Admin: 03/06/17 18:02 Dose: Not Given Clonazepam (Klonopin) 1 mg PO BID [facility] Stop: 09/02/17 08:59 Last Admin: 03/06/17 08:18 Dose: 1 mg Diltiazem HCl (Cardizem Er Q24hr) 120 mg PO DAILY [facility] Stop: 09/02/17 08:59 Last Admin: 03/06/17 08:18 Dose: 120 mg Hydromorphone HCl (Dilaudid) 0.2 - 0.4 mg IVP Q2HRS PRN PRN Reason: Pain, Severe Unable to Take PO Stop: 03/15/17 22:24 Last Admin: 03/06/17 08:17 Dose: 0.4 mg Sodium Chloride (Ns) 2,600 mls @ 5,200 mls/hr 30 ml/kg infuse over 30 min ( 2600 ml) IV EDNOW ONE PRN Reason: Protocol Stop: 03/05/17 19:24 Last Admin: 03/05/17 19:00 Dose: 2,600 mls Sodium Chloride (Ns) 1,000 mls @ 0 mls/hr IV ONCE ONE PRN Reason: Wide Open Stop: 03/05/17 18:57 Last Admin: 03/05/17 18:57 Dose: Not Given Sodium Chloride (Ns) 1,000 mls @ 0 mls/hr IV ONCE ONE PRN Reason: Wide Open Stop: 03/05/17 18:57 Last Admin: 03/05/17 18:57 Dose: Not Given Cefazolin Sodium (Cefazolin Syringe) 2 gm in 20 mls @ 200 mls/hr IVP EDNOW ONE Stop: 03/05/17 21:05 Last Admin: 03/05/17 20:53 Dose: 20 mls Ketorolac Tromethamine (Toradol) 30 mg IVP Q6 PRN PRN Reason: Pain, Inflammatory Stop: 03/10/17 22:24 Last Admin: 03/06/17 05:07 Dose: 30 mg Lorazepam (Ativan Injection) 2 mg IVP EDNOW ONE Stop: 03/05/17 19:30 Last Admin: 03/05/17 19:30 Dose: 2 mg Lorazepam (Ativan) 0 mg PO Q4H PRN; Protocol PRN Reason: Alcohol Withdrawal w/IV access Stop: 03/06/17 07:40 Last Admin: 03/06/17 04:00 Dose: 2 mg Lorazepam (Ativan Injection) 0 mg IVP Q1H PRN; Protocol PRN Reason: Alcohol Withdrawal w/IV access Stop: 03/06/17 07:40 Last Admin: 03/05/17 20:30 Dose: 2 mg Oxycodone HCl (Oxycodone Ir) 5 - 10 mg PO Q4 PRN PRN Reason: Pain, Severe Able to Take PO Stop: 03/15/17 22:24 Last Admin: 03/06/17 08:17 Dose: 10 mg Departure - Departure Disposition: [facility] Inpatient Acute Clinical Impression: Frostbite of both great toes Lower extremity cellulitis Qualifiers: Laterality: unspecified laterality Qualified Code(s): L03.119 - Cellulitis of unspecified part of limb Alcohol intoxication Qualifiers: Complication of substance-induced condition: with unspecified complication Qualified Code(s): F10.929 - Alcohol use, unspecified with intoxication, unspecified Condition: Fair
[2017-03-05] MEDS ORDERED: NS 2,600 ML IV ONE (18:55)
[2017-03-05] MEDS ORDERED: NS 1,000 ML IV ONE ×2 (18:56)
[2017-03-05 19:01] LABS: PLATELET COUNT 475 10^3/uL (150-400)
[2017-03-05 19:04] LABS: INR 1.08 (0.83-1.16); PROTIME(PATIENT) 14.2 SEC (12.0-15.0)
--- NOTE | 2017-03-05 19:09 | CPEKG ---
Heart Rate: 95 RR Interval: 632 P-R Interval: 156 QRSD Interval: 78 QT Interval: 356 QTC Interval: 448 P [place]: 41 QRS [place]: 58 T Wave [place]: 68 EKG Severity - NORMAL ECG - EKG Impression: SINUS RHYTHM Electronically Signed By: Kya Blum 05-Mar-2017 23:19:38
[2017-03-05] MEDS ORDERED: LORazepam 2 MG/ML INJ ONE (19:27)
[2017-03-05] MEDS ORDERED: LORazepam 2 MG/ML INJ IVP ONE (19:29)
[2017-03-05] MEDS ORDERED: LORazepam 2 MG/ML INJ IVP PRN ×2 (19:39→22:25)
[2017-03-05] MEDS ORDERED: ceFAZolin 2 GM/DEXTROSE 100 ML IV ONE (20:12)
[2017-03-05] MEDS ORDERED: ceFAZolin 2 GM/SWFI 2 GM/20 ML SYR IVP ONE (21:00)
[2017-03-05] MEDS ORDERED: ALTEPLASE 2 MG VIAL IVP PRN (22:05)
[2017-03-05] MEDS: LORazepam 1 MG TAB PO PRN (22:09)
[2017-03-05] MEDS ORDERED: ACETAMINOPHEN 325 MG TAB PO PRN (22:25)
[2017-03-05] MEDS ORDERED: PROMETHAZINE HCL 25 MG/ML INJ IVP PRN (22:25)
[2017-03-05] MEDS ORDERED: KETOROLAC 30 MG/1 ML SDV IVP PRN (22:25)
[2017-03-05] MEDS ORDERED: ONDANSETRON 4 MG/2 ML VIAL IVP PRN (22:25)
[2017-03-05] MEDS ORDERED: HALOPERIDOL LACT 5 MG/ML INJ IVP PRN (22:26)
[2017-03-05] MEDS ORDERED: NS 1,000 ML IV SCH (22:30)
--- NOTE | 2017-03-05 23:09 | GHP ---
[f rep st] HISTORY AND PHYSICAL DATE OF ADMISSION: 03/05/2017 CHIEF COMPLAINT: Found down. HISTORY: The patient is a 51-year-old, homeless, alcoholic who left our hospital AMA this morning. He was admitted for extensive frostbite injury to his lower extremity with cellulitis. He has been i n the hospital since February 25. He was being treated with IV Ancef. Later this evening, he was f ound down at the bus station, intoxicated with alcohol, and brought back to the emergency room. He i s now agitated and again threatening to leave. He is confused. He cannot tell me the date. He césar ot tell me why he needs to be in the hospital. PAST MEDICAL HISTORY: 1. Seizure disorder. 2. COPD. 3. Alcohol abuse. 4. Neuropathy. 5. Chronic back pain with continuous narcotics. 6. Bipolar disorder. 7. Obesity, status post gastric bypass. 8. Atrial fibrillation. PAST SURGICAL HISTORY: Cholecystectomy, total knee arthroplasty, back fusion x3. MEDICATIONS: Please see computer record for full detailed list. ALLERGIES: To gabapentin. SOCIAL HISTORY: Smokes cigarettes. He drinks alcohol. He is homeless. REVIEW OF SYSTEMS: A complete review of systems was obtained. Review of systems negative regarding constitutional, HEENT, GI, pulmonary, cardiovascular, , hematology, skin, musculoskeletal, endocrin e, psych, except for positives and negatives as noted in HPI. FAMILY HISTORY: Reviewed. Noncontributory to presenting complaint. PHYSICAL EXAMINATION: GENERAL: Well-developed, well-nourished male, in no acute distress. VITAL SI GNS: Temperature is 36.8, pulse 101, blood pressure 159/89, satting 97% on room air. EYES: Normal conjunctivae. Pupils equal, react to light. ENT: Normal ears, nose. Hearing intact. Normal teeth . Oropharynx moist. NECK: Trachea midline. No thyromegaly. CHEST: Normal respiratory effort. L UNGS: Clear to auscultation bilaterally. CARDIOVASCULAR: Regular rhythm, no murmur. Lower extremit y edema, left greater than right, with erythema. ABDOMEN: Soft, nontender. No hepatosplenomegaly. SKIN: Lower extremities have erythema going up the leg. His feet have dry gangrene with black necr osis and surrounding cellulitis. MUSCULOSKELETAL: No cyanosis or clubbing. Strength 5/5 upper and lower extremities. NEUROLOGIC: Cranial nerves intact. Normal sensation to light touch. PSYCHIATRI C: He is alert and oriented x1. He cannot tell me an accurate date. He thinks it is the . He knows he is in [place]. He cannot express what his current medical condition is and his need for ho spitalization for lower extremity cellulitis. He is agitated. Poor judgment and insight. LABORATORY DATA: White count 6.95, hematocrit 31.5, platelets 475. Sodium 144, potassium 4.1, chlor tatyana 105, bicarb 22, BUN 5, creatinine 0.6, glucose 81, INR is 1.08, lactate is 3.1. Urinalysis is ne gative. I have discussed this case with both Luke Pozo, emergency room provider, and [facility] to him leaving AMA. This is regarding the patient's AMA, discharge, and re-arrival. Medical record review. His chart is extensive. His recent hospitalization, he was being treated with IV Ancef in conjunction with Infec tious Disease. ASSESSMENT/PLAN: 1. Frostbite with cellulitis. We will resume IV Ancef and reconsult Wound Care. Continue aspirin a nd nifedipine. 2. Agitation and confusion. I suspect he has a toxic metabolic encephalopathy. Although I do suspe ct his baseline is likely compromised, I do not think he currently has decisional capacity to make th e decision and understand the consequences of leaving the hospital. He is, therefore, medically deta ined for the evening. We will get Speech Therapy to see him for cognition evaluation, as well as con sulting regarding decisional capacity on a more long-term basis. 3. Alcohol intoxication. Said he has been hospitalized continuously for the last week, until his bi nge drinking episode today. I think it is unlikely that he will go through significant withdrawal. He will be monitored closely. 4. Atrial fibrillation. Continue diltiazem and aspirin. 5. C7 facet fracture. He is currently in a collar. It is unclear if this is acute or chronic. He could have sustained it when he went down today. Neurosurgery has been consulted. They requested an MRI of the cervical spine. 6. Seizure disorder. Continue Dilantin. CODE STATUS: Full. ADMISSION STATUS: We will admit to inpatient as he is medically complex. I anticipate greater than 2 midnights. DVT PROPHYLAXIS: He is high risk. We will place him on subcu Lovenox. /[id number]/MODL
[2017-03-05] MEDS: ALBUTEROL 60 PUFFS/8 GM MDI IH SCH (23:28)
[2017-03-06] MEDS: oxyCODONE IR 5 MG TAB PO PRN ×2 (02:39→08:17)
[2017-03-06] MEDS: LORazepam 1 MG TAB PO PRN ×3 (04:00→20:24)
[2017-03-06] MEDS: HYDROmorphONE/DILAUDID 1 MG/ML INJ IVP PRN ×3 (04:03→08:17)
[2017-03-06] MEDS: ALBUTEROL 60 PUFFS/8 GM MDI IH SCH ×6 (04:18→19:36)
[2017-03-06 05:15] LABS: PLATELET COUNT 428 10^3/uL (150-400)
[2017-03-06] MEDS: NICOTINE 14 MG/24 HR PATCH TD SCH (08:17)
[2017-03-06] MEDS: ASPIRIN EC 325 MG TAB PO SCH (08:18)
[2017-03-06] MEDS: ENOXAPARIN 40 MG/0.4 ML SYR SC SCH (08:18)
[2017-03-06] MEDS: LISINOPRIL/HCTZ 20/12.5MG 1 EA TAB PO SCH (08:18)
[2017-03-06] MEDS: PHENYTOIN SODIUM EXTENDED 100 MG CAP PO SCH ×3 (08:18→22:27)
[2017-03-06] MEDS: PANTOPRAZOLE SODIUM 40 MG TAB PO SCH (08:18)
[2017-03-06] MEDS: NIFEdipine ER 30 MG TAB PO SCH (08:18)
--- NOTE | 2017-03-06 08:52 | ASMTCMCOM ---
CM Note CM Note Notes: 03/06/2017 Case Management Note Reviewed chart. Pt is well known to case management. Pt is homeless with mulitple hospitalizations d/t alcohol abuse. Most recent admission was on 02/25 for treatment of huynh bite. On IV ancef currently. Case Management d/c poc: TBD pending outcomes of cog eval and ethics consult. Case Management to follow. Date Signed: 03/06/2017 08:52 AM Electronically Signed By:Miriam Headley RN
[2017-03-06] MEDS ORDERED: DILTIAZEM CD 120 MG CAP PO SCH (09:00)
[2017-03-06] MEDS ORDERED: clonazePAM 1 MG TAB PO SCH (09:00)
--- NOTE | 2017-03-06 09:02 | WOCRNPDOC ---
WOCRN Advanced Assessment Note - Skin Integrity Problem, Advanced Assess Bilateral Foot Frostbite Dressing Type: Coban, Kerlix, Mepilex, Vaseline Gauze Dressing Dressing Description: Intact, Shadowed Exudate Amount: Minimal Exudate Color: Reddish/Yellow Exudate Characteristic(s): Serosanguinous Integumentary Issue Intervention: Dressing Removed (left), Visualized Under Dressing (right) Madhavi Wound Tissue: Erythema, Swollen Wound Bed Color: Black, Purple, Red Wound Bed Constitution: Stable Eschar, Intact Serous Filled Blister, De-roofed Serous Blister, Draining Serous Blister Skin Integrity Problem Comment: Patient with frostbite to bilateral toes - left worse than right. Agreeable this morning to cares. Dressing of left foot cut down with scissors to reveal blackened digits and multiple blisters in various states. There are also blisters on the forefoot, mostly deroofed. AMNA Moody in room to medicate patient for pain and aware of plan. Right toes not as severe, wounds limited mostly to first, second and third toes. Wound care will round again later this week.
--- NOTE | 2017-03-06 09:16 | GCON ---
[f rep st] CONSULTATION NEUROSURGICAL CONSULTATION CHIEF COMPLAINT: Neck pain. HISTORY OF PRESENT ILLNESS: The patient is a 51-year-old homeless alcoholic male who was seen in the hospital on 03/05/2017, for frostbite and cellulitis. He left the hospital against medical advice a nd [place] He was brought back to the emergency departm ent and a CT scan of the cervical spine was obtained. This showed a questionable C6 facet fracture a nd neurosurgical consultation was requested. He currently complains of ongoing neck pain. This was associated with pain radiating to both arms, general weakness and paresthesias in both arms. He shea es any ataxia. Denies any bowel and bladder problems. 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 PAST MEDICAL HISTORY: 1. Seizure disorder. 2. COPD. 3. Alcohol abuse. 4. Neuropathy. 5. Chronic back pain. 6. Bipolar disorder. 7. Obesity, status post gastric bypass. 8. Atrial fibrillation. PAST SURGICAL HISTORY: Includes a cholecystectomy and total knee arthroplasty, back fusion, and jody stephani bypass. MEDICATIONS PRIOR TO ADMISSION: Keflex, albuterol, aspirin, Klonopin, Cardizem, Advair, lisinopril, nifedipine, Protonix, Dilantin. ALLERGIES: Gabapentin, which causes seizures. FAMILY HISTORY: Patient has no family history of spine problems. SOCIAL HISTORY: Patient is homeless and . He does have older children. He smokes approxima tely a half pack of cigarettes per day and does drink alcohol. He denies drug use. REVIEW OF SYSTEMS: Negative. PHYSICAL EXAM: GENERAL: Patient is a 51-year-old male lying in bed, in no apparent distress. He is wearing a hard cervical collar. EXTREMITIES: Leach, warm, and dry. NEUROLOGIC: Patient is awake, alert, and oriented x4. Pupils equal, round, reactive to light. Extraocular motions are intact. Th ere is no evidence of facial droop. Tongue and uvula are midline. 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 His sensation is grossly intact to light touch in his arms and legs. Deep tendon refl exes are 1/4 throughout. There is a negative Viji's with no clonus. DIAGNOSTIC STUDIES: Head CT without contrast from [facility] on 03/05/2017, shows no acute hemorrhage. There is no evidence of any skull fractures. A CT scan of the cervical spine 03/05/2017, shows preservation of the sagittal alignment. There are moderate multilevel degenerative changes with large anterior osteophytes. There is also posterior os teophytes retropulsed towards the canal. There is a questionable fracture through the right C7 super ior articulating facet. There is no significant displacement. There is no evidence of canal comprom ise. IMPRESSION: This is a 51-year-old male admitted with neck pain after a fall. He has a questionable C7 facet fracture. 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 PLAN: All the above discussed in detail with the patient. This patient was seen and examined with Damaris Menezes present. At this point we will keep him in a hard collar. We will obtain an MRI of th e cervical spine to evaluate for any underlying stenosis and also evaluate for the acuity of the C7 f acet fracture. We will make further treatment recommendations upon completion of his MRI. He can pa rticipate with physical therapy and occupational therapy, as long as he is wearing his hard collar. He does not need to be bed confined, but needs to wear his hard collar at all times. Please call kj rojas any neurological changes. /[id number]/MODL
--- NOTE | 2017-03-06 10:32 | SOAPPROG ---
SOAP Progress Note Assessment/Plan: Assessment: PT WITH DEMARCATING FROSTBITE WOUNDS ON BOTH FEET, RT<<<<LEFT Plan:WILL FOLLOW WITH WOUND CARE 03/06/17 10:30 Objective: Vital Signs Temp Pulse Resp BP Pulse Ox 36.6 C 70 20 124/73 H 99 03/06/17 07:44 03/06/17 10:26 03/06/17 10:26 03/06/17 07:44 03/06/17 07:44 Laboratory Results 03/06/17 04:54 03/06/17 04:54 03/05/17 03/06/17 03/07/17 05:59 05:59 05:59 Intake Total 3250 Output Total 2975 Balance 275 PT 14.2 SEC (12.0-15.0) 03/05/17 18:30 INR 1.08 (0.83-1.16) 03/05/17 18:30 ICD10 Worksheet Patient Problems: Problems Problem Status Onset Alcohol intoxication Acute Frostbite of both great toes Acute Lower extremity cellulitis Acute Abdominal pain Acute Alcohol abuse Acute Alcohol withdrawal Acute Atrial fibrillation with RVR Acute Back pain Acute COPD (chronic obstructive pulmonary disease) Acute Cold exposure Acute Cold exposure Acute Dehydration Acute Facial laceration Acute Frostbite Acute Laceration of eyebrow, left Acute Lactic acidosis Acute Multiple abrasions Acute Neck strain Acute Reversible airways disease Acute Seizure Acute Situational depression Acute Strain of mid-back Acute
[2017-03-06] MEDS: FLUTICASONE/SALMETER 250/50MCG DISKUS IH SCH ×2 (10:49→19:36)
[2017-03-06] MEDS: LORazepam 2 MG/ML INJ IVP PRN (10:51)
--- NOTE | 2017-03-06 11:48 | PDMN ---
Medical Necessity Medical necessity: Pt meets IP criteria per MD; est los >2 mn for eval/tx of extensive LE frostbite w/dry gangrene, black necrosis & surrounding cellulitis, agitation, confusion, alcohol intoxication & C7 facet fx; pt on medical detainer , admit for close monitoring, IV abx, wound care & therapies; hx alcoholism, seizure disorder, COPD, falls, bipolar disorder & homelessness; per H&P & order 03/05/17
[2017-03-06] MEDS: HYDROmorphONE/DILAUDID 2 MG TAB PO PRN ×3 (12:58→22:27)
--- NOTE | 2017-03-06 13:48 | SOAPPROG ---
SOAP Progress Note Assessment/Plan: Assessment: 51 yo M with C3/4 cervical stenosis and right C7 facet fracture Plan: reviewed MRI of cervical spine with patient and Dr Menezes. patient has subtle right C7 facet fracture with moderate/severe stenosis at C3/4. We would like him to wear his hard collar at all times for the next 12 weeks. Ok to discharge when cleared by Medicine Patient can follow up with Dr Menezes in clinic in 2 weeks, will sign off, please call with neuro changes Discussed with Dr Randle at well. 03/06/17 13:45 Subjective: continued neck pain, no new weakness Objective: Vital Signs Temp Pulse Resp BP Pulse Ox 36.6 C 70 20 124/73 H 99 03/06/17 07:44 03/06/17 10:26 03/06/17 10:26 03/06/17 07:44 03/06/17 07:44 Laboratory Results 03/06/17 04:54 03/06/17 04:54 03/05/17 03/06/17 03/07/17 05:59 05:59 05:59 Intake Total 3250 Output Total 2975 Balance 275 PT 14.2 SEC (12.0-15.0) 03/05/17 18:30 INR 1.08 (0.83-1.16) 03/05/17 18:30 AAOx4, +FC PERRL, EOMI, no facial droop 5/5 + light touch wearing hard collar ICD10 Worksheet Patient Problems: Problems Problem Status Onset Alcohol intoxication Acute Frostbite of both great toes Acute Lower extremity cellulitis Acute Abdominal pain Acute Alcohol abuse Acute Alcohol withdrawal Acute Atrial fibrillation with RVR Acute Back pain Acute COPD (chronic obstructive pulmonary disease) Acute Cold exposure Acute Cold exposure Acute Dehydration Acute Facial laceration Acute Frostbite Acute Laceration of eyebrow, left Acute Lactic acidosis Acute Multiple abrasions Acute Neck strain Acute Reversible airways disease Acute Seizure Acute Situational depression Acute Strain of mid-back Acute
[2017-03-06] MEDS: PREGABALIN 25 MG CAP PO SCH ×2 (15:27→20:24)
--- NOTE | 2017-03-06 16:44 | PCMIDPN ---
Assessment/Plan: Assessment/Plan: * Left lower extremity cellulitis associated with frostbite injury: Still with cellulitis over lower leg likely with underlying component of venous insufficiency as well. Continue cefazolin. Emphasized importance of leg elevation. Continue local wound care for frostbite-discussed with patient that likely to ultimately lose tips of toes where necrotic. Emphasized importance of remaining hospitalized for ongoing antibiotics and wound care. 03/06/17 16:41 Subjective: Patient left yesterday against medical advice and returned to hospital after being found down intoxicated. States he is planning to remain in hospital currently. Objective: Vital Signs Temp Pulse Resp BP Pulse Ox 36.7 C 88 15 129/67 H 90 L 03/06/17 15:29 03/06/17 15:29 03/06/17 15:29 03/06/17 15:29 03/06/17 15:29 Laboratory Results 03/06/17 04:54 03/06/17 04:54 03/05/17 03/06/17 03/07/17 05:59 05:59 05:59 Intake Total 3250 Output Total 2975 Balance 275 Cefazolin # 1 (received 3 days of cefazolin and clindamycin prior to leaving [facility] ) Blood cultures 02/27/2017 no growth Blood cultures 03/05/2017 pending - Physical Exam General Appearance: alert, no apparent distress EENT: No scleral icterus Extremities: inflammation (Left lower extremity with 2-3 +edema with faint erythema, warmth to below knee) Skin: other (Cross bite injury to both feet left greater than right; 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; peeling of heel skin continues with eschar formation) ICD10 Worksheet Patient Problems: Problems Problem Status Onset Alcohol intoxication Acute Frostbite of both great toes Acute Lower extremity cellulitis Acute Abdominal pain Acute Alcohol abuse Acute Alcohol withdrawal Acute Atrial fibrillation with RVR Acute Back pain Acute COPD (chronic obstructive pulmonary disease) Acute Cold exposure Acute Cold exposure Acute Dehydration Acute Facial laceration Acute Frostbite Acute Laceration of eyebrow, left Acute Lactic acidosis Acute Multiple abrasions Acute Neck strain Acute Reversible airways disease Acute Seizure Acute Situational depression Acute Strain of mid-back Acute
--- NOTE | 2017-03-06 17:39 | HOSPPROG ---
Hospitalist Progress Note Assessment/Plan: Assessment: 51-year-old male presents with acute encephalopathy secondary to alcohol intoxication in the setting of frostbite and lower extremity wounds with cellulitis Plan: 1. Acute encephalopathy. Evidenced by unresponsiveness, confusion, disorientation, all of which are acute changes from his baseline, secondary to the toxic effects of alcohol, with positive alcohol level on presentation -patient has cognitively cleared, he is currently mentating at his baseline, he currently has capacity to make decisions -detain her has been lifted 2. Lower extremity wounds and cellulitis. Bilateral feet, secondary to frostbite, patient with sloughing and open wounds, with mild adjacent erythema. -discussed with Dr. Jonathan Arnett, he recommends that the patient continue to be reassessed on a daily basis to determine ongoing needs of IV antibiotics, most likely only requires additional 24-72 hours of IV antibiotics, would recommend adjusting to oral Keflex if the patient leaves against medical advice -continue monitor CBC -continue wound care -continue nifedipine for frostbite and poor vascular flow -given the patient most likely has a neuropathic/neuropathy component, initiate on Lyrica, patient reports he has not tolerated gabapentin in the past -patient will most likely require intermediate facility placement for wound care as well as keeping him off of his bilateral feet so that he is able to heel -that being said, the patient does have necrotic tissue and some of these areas of tissue may be nonviable -if the areas worsen, would have low threshold to consult General surgery -continue to advise the patient that if he leaves against medical advice, he will most likely lose some if not all of his toes and possibly his feet -continue as needed pain control and bowel regimen 3. Alcoholism. Patient is not currently experiencing alcohol withdrawal, he was in the hospital for an extended period of time he received detox, then had 1 episode of drinking after he left [place], immediately prior to this presentation -patient does not require CIWA protocol at this time -will continue as needed Ativan, as the patient has uncontrolled anxiety, and Ativan is the only method to control this anxiety and keep the patient comfortable enough to remain hospitalized for care -will discontinue Klonopin, as the patient finds Ativan more useful 4. Paroxysmal atrial fibrillation. Most likely provoked by severe illness, EKG with normal sinus mechanism, personally interpreted -continue monitor on tele -continue aspirin for CVA prevention, hold systemic anticoagulation given poor medical adherence -given that the patient is currently on nifedipine for his frostbite and necrosis, adjust his diltiazem to metoprolol and gauge effect 5. Cervical stenosis and fracture. Discussed with Neurosurgery, they report that the patient's MRI demonstrates severe stenosis with some cord compression, edema at C3-C4, it is nonsurgical at this time, does require surgical reassessment moving forward once the patient's above-mentioned medical issues have stabilized -continue the patient in the C-collar, recommend outpatient neurosurgery follow- up with Dr. Khoi Menezes 6. Acute metabolic acidosis. Secondary to lactic acid, in the setting of alcohol intoxication, stabilized with IV fluids Diet. Regular Prophylaxis. High risk patient, Lovenox 40 Code. Full Disposition. Anticipated discharge uncertain, patient requiring ongoing wound care and IV antibiotics. Subjective: Patient reports ongoing pain and anxiety, he is amenable to staying in the hospital this time Objective: Vital Signs Temp Pulse Resp BP Pulse Ox 36.7 C 88 15 129/67 H 90 L 03/06/17 15:29 03/06/17 15:29 03/06/17 15:29 03/06/17 15:29 03/06/17 15:29 Laboratory Results 03/06/17 04:54 03/06/17 04:54 03/05/17 03/06/17 03/07/17 05:59 05:59 05:59 Intake Total 3250 Output Total 2975 Balance 275 PT 14.2 SEC (12.0-15.0) 03/05/17 18:30 INR 1.08 (0.83-1.16) 03/05/17 18:30 - Physical Exam Constitutional: no apparent distress, chronically ill appearing, uncomfortable, No not in pain (Moderate) Cardiovascular: regular rate and rhythym, no murmur, rub, or gallop, edema ( Trace bilateral lower extremity), No irregularly irregular Respiratory: no respiratory distress, no rales or rhonchi, clear to auscultation Gastrointestinal: normoactive bowel sounds, soft, non-tender abdomen, no palpable masses, No distension Skin: other (Blanching bilateral lower extremities, open wounds along the toes as well as the heels, necrotic tissue, pain, tenderness) Neurologic: AAOx3, No sensation intact bilaterally (Paresthesias bilateral lower extremities distal to the shins), No weakness (Motor strength 5/5 bilateral lower extremity), No facial droop Psychiatric: not encephalopathic, anxious, other (Patient with logical thinking , not tangential, cooperative and follows commands), No agitated ICD10 Worksheet Patient Problems: Problems Problem Status Onset Situational depression Acute Seizure Acute Alcohol withdrawal Acute Abdominal pain Acute Alcohol intoxication Acute Reversible airways disease Acute Lactic acidosis Acute Multiple abrasions Acute Neck strain Acute Strain of mid-back Acute COPD (chronic obstructive pulmonary disease) Acute Alcohol abuse Acute Facial laceration Acute Laceration of eyebrow, left Acute Atrial fibrillation with RVR Acute Cold exposure Acute Dehydration Acute Frostbite Acute Cold exposure Acute Back pain Acute Lower extremity cellulitis Acute Frostbite of both great toes Acute
[2017-03-06] MEDS: METOPROLOL TARTRATE 25 MG TAB PO SCH (20:24)
[2017-03-07] MEDS: LORazepam 1 MG TAB PO PRN ×2 (01:17→08:04)
[2017-03-07] MEDS: HYDROmorphONE/DILAUDID 2 MG TAB PO PRN ×6 (02:39→20:59)
[2017-03-07] MEDS: ALBUTEROL 60 PUFFS/8 GM MDI IH SCH ×4 (05:40→20:57)
[2017-03-07 06:53] LABS: PLATELET COUNT 499 10^3/uL (150-400)
[2017-03-07] MEDS: ASPIRIN EC 325 MG TAB PO SCH (08:04)
[2017-03-07] MEDS: PANTOPRAZOLE SODIUM 40 MG TAB PO SCH (08:04)
[2017-03-07] MEDS: METOPROLOL TARTRATE 25 MG TAB PO SCH ×2 (08:04→20:59)
[2017-03-07] MEDS: NIFEdipine ER 30 MG TAB PO SCH (08:04)
[2017-03-07] MEDS: PREGABALIN 25 MG CAP PO SCH ×3 (08:05→22:10)
[2017-03-07] MEDS: NICOTINE 14 MG/24 HR PATCH TD SCH (08:05)
[2017-03-07] MEDS: LISINOPRIL/HCTZ 20/12.5MG 1 EA TAB PO SCH (08:05)
[2017-03-07] MEDS: PHENYTOIN SODIUM EXTENDED 100 MG CAP PO SCH ×3 (08:05→22:10)
[2017-03-07] MEDS: ENOXAPARIN 40 MG/0.4 ML SYR SC SCH (08:10)
--- NOTE | 2017-03-07 10:05 | SOAPPROG ---
SOAP Progress Note Assessment/Plan: Assessment: PT WITH DEMARCATING FROSTBITE WOUNDS ON BOTH FEET, RT<<<<LEFT Plan:WILL FOLLOW WITH WOUND CARE 03/06/17 10:30 03/07/17 10:04 wounds stable and clean/ will check art studies Objective: Vital Signs Temp Pulse Resp BP Pulse Ox 36.8 C 86 16 130/80 H 90 L 03/07/17 07:28 03/07/17 07:28 03/07/17 07:28 03/07/17 07:28 03/07/17 07:28 Laboratory Results 03/07/17 06:00 03/07/17 06:00 03/06/17 03/07/17 03/08/17 05:59 05:59 05:59 Intake Total 3250 500 Output Total 2975 Balance 275 500 PT 14.2 SEC (12.0-15.0) 03/05/17 18:30 INR 1.08 (0.83-1.16) 03/05/17 18:30 ICD10 Worksheet Patient Problems: Problems Problem Status Onset Alcohol intoxication Acute Frostbite of both great toes Acute Lower extremity cellulitis Acute Abdominal pain Acute Alcohol abuse Acute Alcohol withdrawal Acute Atrial fibrillation with RVR Acute Back pain Acute COPD (chronic obstructive pulmonary disease) Acute Cold exposure Acute Cold exposure Acute Dehydration Acute Facial laceration Acute Frostbite Acute Laceration of eyebrow, left Acute Lactic acidosis Acute Multiple abrasions Acute Neck strain Acute Reversible airways disease Acute Seizure Acute Situational depression Acute Strain of mid-back Acute
[2017-03-07] MEDS: FLUTICASONE/SALMETER 250/50MCG DISKUS IH SCH ×2 (10:36→20:57)
[2017-03-07] MEDS: AMOXICILLIN/CLAVULANATE POT 875/125 MG TAB PO SCH ×2 (11:30→20:58)
--- NOTE | 2017-03-07 13:12 | HOSPPROG ---
Hospitalist Progress Note Assessment/Plan: 51-year-old male new to my care on 03/07/2017 presents with acute encephalopathy secondary to alcohol intoxication in the setting of frostbite and lower extremity wounds with cellulitis # Lower extremity wounds and cellulitis due to frostbite injury: -transitioned to oral Augmentin for 1 more week -wound care -may need long term facility placement #Acute encephalopathy (resolved) -patient has cognitively cleared, he is currently mentating at his baseline, he currently has capacity to make decisions -Detainer had been lifted # Alcoholism without active signs of withdrawal -will DC Ativan and resume his previous home dose of Klonopin 4. Paroxysmal atrial fibrillation. Most likely provoked by severe illness, EKG with normal sinus mechanism, personally interpreted -continue monitor on tele -continue aspirin for CVA prevention, hold systemic anticoagulation given poor medical adherence -given that the patient is currently on nifedipine for his frostbite and necrosis, adjust his diltiazem to metoprolol and gauge effect 5. Cervical stenosis and fracture. Discussed with Neurosurgery, they report that the patient's MRI demonstrates severe stenosis with some cord compression, edema at C3-C4, it is nonsurgical at this time, does require surgical reassessment moving forward once the patient's above-mentioned medical issues have stabilized -continue the patient in the C-collar, recommend outpatient neurosurgery follow- up with Dr. Khoi Menezes -patient is refusing to wear the collar. The risks of noncompliance were discussed with the patient who verbalized understanding of this. 6. Acute metabolic acidosis. Secondary to lactic acid, in the setting of alcohol intoxication, stabilized with IV fluids Diet. Regular Prophylaxis. High risk patient, Lovenox 40 Code. Full Disposition. Anticipated discharge uncertain, will attempt to find placement for him Subjective: foot pain is controlled. Denies any other acute complaints Objective: Vital Signs Temp Pulse Resp BP Pulse Ox 36.8 C 80 12 133/83 H 90 L 03/07/17 11:42 03/07/17 11:42 03/07/17 11:42 03/07/17 11:42 03/07/17 11:42 Laboratory Results 03/07/17 06:00 03/07/17 06:00 03/06/17 03/07/17 03/08/17 05:59 05:59 05:59 Intake Total 3250 500 Output Total 2975 Balance 275 500 PT 14.2 SEC (12.0-15.0) 03/05/17 18:30 INR 1.08 (0.83-1.16) 03/05/17 18:30 - Physical Exam Constitutional: no apparent distress, appears nourished, not in pain Skin: other (bilat feet with extensive tissue sloughing without purulent discharge ) ICD10 Worksheet Patient Problems: Problems Problem Status Onset Situational depression Acute Seizure Acute Alcohol withdrawal Acute Abdominal pain Acute Alcohol intoxication Acute Reversible airways disease Acute Lactic acidosis Acute Multiple abrasions Acute Neck strain Acute Strain of mid-back Acute COPD (chronic obstructive pulmonary disease) Acute Alcohol abuse Acute Facial laceration Acute Laceration of eyebrow, left Acute Atrial fibrillation with RVR Acute Cold exposure Acute Dehydration Acute Frostbite Acute Cold exposure Acute Back pain Acute Lower extremity cellulitis Acute Frostbite of both great toes Acute
--- NOTE | 2017-03-07 15:31 | PCMIDPN ---
Assessment/Plan: Assessment/Plan: * Left lower extremity cellulitis associated with frostbite injury: clinically improved. Suspect some of residual erythema is primarily related to venous insufficiency as he notes that his leg has this appearance frequently. Therefore, will transition to oral Augmentin for 7 additional days of treatment. Continue local wound care for frostbite injury. Pressure offloading of left heel. Clinical findings and plan reviewed with patient, Dr. Soto, Dr. Escobar, and nursing staff. 03/07/17 15:26 03/07/17 15:37 Subjective: Patient with persistent bilateral foot pain. Feels like he is having improved sensation. Discussed with patient if he typically has erythema over left anterior lower extremity which he says is relatively common for him. Objective: Vital Signs Temp Pulse Resp BP Pulse Ox 36.3 C 89 16 141/78 H 95 03/07/17 15:02 03/07/17 15:02 03/07/17 15:02 03/07/17 15:02 03/07/17 15:02 Laboratory Results 03/07/17 06:00 03/07/17 06:00 03/06/17 03/07/17 03/08/17 05:59 05:59 05:59 Intake Total 3250 500 Output Total 2975 Balance 275 500 Cefazolin # 2 (status post 3 doses prior to provide leaving AMA during last hospital stay) Blood cultures x2 no growth - Physical Exam General Appearance: alert, no apparent distress EENT: No scleral icterus Extremities: inflammation ( 2-3 +lower extremity edema bilaterally; faint erythema with warmth over anterior segura on left which is unchanged) Skin: other ( bilateral frostbite left greater than right; no active cellulitis over feet; peeling of heel skin on left) ICD10 Worksheet Patient Problems: Problems Problem Status Onset Alcohol intoxication Acute Frostbite of both great toes Acute Lower extremity cellulitis Acute Abdominal pain Acute Alcohol abuse Acute Alcohol withdrawal Acute Atrial fibrillation with RVR Acute Back pain Acute COPD (chronic obstructive pulmonary disease) Acute Cold exposure Acute Cold exposure Acute Dehydration Acute Facial laceration Acute Frostbite Acute Laceration of eyebrow, left Acute Lactic acidosis Acute Multiple abrasions Acute Neck strain Acute Reversible airways disease Acute Seizure Acute Situational depression Acute Strain of mid-back Acute
--- NOTE | 2017-03-07 16:06 | ASMTCMCOM ---
CM Note CM Note Notes: Discussed pts case in morning rounds. It was recommended that pt goes to SNF. Referrals made to [facility], [facility], [facility] and [facility]. All facilities have declined pt. Pt will be having an arterial study lower extremity tomorrow. Pt will most likely d/c back to the [facility]. CM available for changes. Plan: Independent with outpatient follow up Date Signed: 03/07/2017 04:05 PM Electronically Signed By:MICHELLE Fountain
[2017-03-07] MEDS: clonazePAM 1 MG TAB PO SCH (20:01)
[2017-03-08] MEDS: HYDROmorphONE/DILAUDID 2 MG TAB PO PRN ×7 (03:01→23:07)
[2017-03-08] MEDS: ALBUTEROL 60 PUFFS/8 GM MDI IH SCH ×4 (05:55→21:01)
[2017-03-08 06:27] LABS: PLATELET COUNT 441 10^3/uL (150-400)
[2017-03-08] MEDS: clonazePAM 1 MG TAB PO SCH ×2 (08:23→20:02)
[2017-03-08] MEDS: LISINOPRIL/HCTZ 20/12.5MG 1 EA TAB PO SCH (08:23)
[2017-03-08] MEDS: AMOXICILLIN/CLAVULANATE POT 875/125 MG TAB PO SCH ×2 (08:23→20:02)
[2017-03-08] MEDS: PHENYTOIN SODIUM EXTENDED 100 MG CAP PO SCH ×3 (08:23→23:04)
[2017-03-08] MEDS: ENOXAPARIN 40 MG/0.4 ML SYR SC SCH (08:24)
[2017-03-08] MEDS: ASPIRIN EC 325 MG TAB PO SCH (08:24)
[2017-03-08] MEDS: NICOTINE 14 MG/24 HR PATCH TD SCH (08:24)
[2017-03-08] MEDS: PREGABALIN 25 MG CAP PO SCH ×3 (08:24→23:05)
[2017-03-08] MEDS: METOPROLOL TARTRATE 25 MG TAB PO SCH ×2 (08:24→20:02)
[2017-03-08] MEDS: NIFEdipine ER 30 MG TAB PO SCH (08:38)
[2017-03-08] MEDS: PANTOPRAZOLE SODIUM 40 MG TAB PO SCH (08:38)
[2017-03-08] MEDS ORDERED: LORazepam 2 MG/ML INJ IV ONE (10:15)
[2017-03-08] MEDS: FLUTICASONE/SALMETER 250/50MCG DISKUS IH SCH ×2 (10:30→21:00)
[2017-03-08] MEDS ORDERED: LORazepam 2 MG/ML INJ IVP ONE (10:30)
[2017-03-08] MEDS: HYDROmorphONE/DILAUDID 1 MG/ML INJ IVP PRN ×2 (10:56→15:39)
--- NOTE | 2017-03-08 11:24 | WOCRNPDOC ---
WOCRN Advanced Assessment Note - Skin Integrity Problem, Advanced Assess Bilateral Foot Frostbite Dressing Type: Adaptic Touch, Kerlix Dressing Description: Intact, Shadowed Exudate Amount: Scant Exudate Color: Yellow Exudate Characteristic(s): Clear Integumentary Issue Intervention: Dressing Changed Madhavi Wound Tissue: Erythema, Swollen Madhavi Wound Swelling: Moderate Wound Bed Color: Black, Brown, Yellow Wound Bed Constitution: Red/[place] - Non Granular Tissue, Adhered Slough, Stable Eschar Skin Integrity Problem Comment: Frostbite to bilateral toes, left worse than right. Eschar on tips of L 2nd-4th toes, and on entire L 1st and 5th toe. 5th toe is also fluctuant, w/ possible serous fluid. Removed loose skin flap from left heel w/ scisscors, shallow partial-thickness wound underneath. There remains a blackened area on the posterior heel. Dorsal aspect of L foot is slough/eschar-filled, too moist. Stable, dry eschar on the tips of R 1st, 2nd, and 4th toe, no fluctuance palpated. Applied Betadine swabs to all areas of necrotic tissue to dry it out. Covered w/ Telfa, as gauze dressing sticking to wounds. Will ask surgeon to assess, as L 5th toe appears entirely necrotic. Report given to automation clerk Jade.
--- NOTE | 2017-03-08 11:37 | SOAPPROG ---
SOAP Progress Note Assessment/Plan: Assessment: PT WITH DEMARCATING FROSTBITE WOUNDS ON BOTH FEET, RT<<<<LEFT Plan:WILL FOLLOW WITH WOUND CARE 03/06/17 10:30 03/07/17 10:04 wounds stable and clean/ will check art studies 03/08/17 11:36 DOING OK BUT LEFT 5TH TOE NECROTIC WITH SOME FLUCTANCE/ WILL NEED AMPUTATION/ RISKS AND OPTIONS FULLY DISCUSSED Objective: Vital Signs Temp Pulse Resp BP Pulse Ox 36.8 C 83 16 140/80 H 95 03/08/17 07:14 03/08/17 10:31 03/08/17 10:31 03/08/17 07:14 03/08/17 10:31 Laboratory Results 03/08/17 06:00 03/08/17 06:00 03/07/17 03/08/17 03/09/17 05:59 05:59 05:59 Intake Total 500 420 Balance 500 420 PT 14.2 SEC (12.0-15.0) 03/05/17 18:30 INR 1.08 (0.83-1.16) 03/05/17 18:30 ICD10 Worksheet Patient Problems: Problems Problem Status Onset Alcohol intoxication Acute Frostbite of both great toes Acute Lower extremity cellulitis Acute Abdominal pain Acute Alcohol abuse Acute Alcohol withdrawal Acute Atrial fibrillation with RVR Acute Back pain Acute COPD (chronic obstructive pulmonary disease) Acute Cold exposure Acute Cold exposure Acute Dehydration Acute Facial laceration Acute Frostbite Acute Laceration of eyebrow, left Acute Lactic acidosis Acute Multiple abrasions Acute Neck strain Acute Reversible airways disease Acute Seizure Acute Situational depression Acute Strain of mid-back Acute
[2017-03-08] MEDS: LORazepam 2 MG/ML INJ IVP PRN (15:31)
[2017-03-08] MEDS ORDERED: ERTAPENEM 1 GM VIAL IVP ONE (15:42)
--- NOTE | 2017-03-08 15:42 | ASMTCMCOM ---
CM Note CM Note Notes: Discussed case in morning rounds. Pt will have a left 5th toe amputation. Pt will be here for a couple more days. Needs are TBD at this time. CM to follow. Plan: TBD Date Signed: 03/08/2017 03:41 PM Electronically Signed By:MICHELLE Fountain
--- NOTE | 2017-03-08 15:58 | HOSPPROG ---
Hospitalist Progress Note Assessment/Plan: 51-year-old male new to my care on 03/07/2017 presents with acute encephalopathy secondary to alcohol intoxication in the setting of frostbite and lower extremity wounds with cellulitis # Lower extremity wounds and cellulitis due to frostbite injury pending left 5th digit amputation planned for today -continue oral Augmentin for 1 more week -wound care #Acute encephalopathy (resolved) -patient has cognitively cleared, he is currently mentating at his baseline, he currently has capacity to make decisions -Detainer had been lifted # Alcoholism without active signs of withdrawal -will DC Ativan and resume his previous home dose of Klonopin 4. Paroxysmal atrial fibrillation. Most likely provoked by severe illness, EKG with normal sinus mechanism, personally interpreted -continue monitor on tele -continue aspirin for CVA prevention, hold systemic anticoagulation given poor medical adherence -given that the patient is currently on nifedipine for his frostbite and necrosis, adjust his diltiazem to metoprolol and gauge effect 5. Cervical stenosis and fracture. Discussed with Neurosurgery, they report that the patient's MRI demonstrates severe stenosis with some cord compression, edema at C3-C4, it is nonsurgical at this time, does require surgical reassessment moving forward once the patient's above-mentioned medical issues have stabilized -continue the patient in the C-collar, recommend outpatient neurosurgery follow- up with Dr. Khoi Menezes -patient is refusing to wear the collar. The risks of noncompliance were discussed with the patient who verbalized understanding of this. 6. Acute metabolic acidosis. Secondary to lactic acid, in the setting of alcohol intoxication, stabilized with IV fluids Diet. Regular Prophylaxis. High risk patient, Lovenox 40 Code. Full Disposition. Anticipated discharge uncertain, patient has been rejected by multiple fpc facilities due to his history of noncompliance and leaving and medical advice in the setting of alcohol abuse. Plan will be for him to [facility] [place] [facility] with outpatient wound care when medically stable Subjective: Reports severe pain in his left foot. Denies any fevers or chills. He feels very anxious. Objective: Vital Signs Temp Pulse Resp BP Pulse Ox 36.5 C 82 18 109/79 96 03/08/17 15:13 03/08/17 15:13 03/08/17 15:13 03/08/17 15:13 03/08/17 15:13 Laboratory Results 03/08/17 06:00 03/08/17 06:00 03/07/17 03/08/17 03/09/17 05:59 05:59 05:59 Intake Total 500 420 Output Total 250 Balance 500 420 -250 PT 14.2 SEC (12.0-15.0) 03/05/17 18:30 INR 1.08 (0.83-1.16) 03/05/17 18:30 - Physical Exam Constitutional: no apparent distress Ears, Nose, Mouth, Throat: moist mucous membranes, hearing normal, ears appear normal, no oral mucosal ulcers Cardiovascular: regular rate and rhythym, no murmur, rub, or gallop Respiratory: no respiratory distress, no rales or rhonchi, clear to auscultation Gastrointestinal: normoactive bowel sounds, soft, non-tender abdomen, no palpable masses Neurologic: AAOx3, CN II-XII Intact, No facial droop ICD10 Worksheet Patient Problems: Problems Problem Status Onset Situational depression Acute Seizure Acute Alcohol withdrawal Acute Abdominal pain Acute Alcohol intoxication Acute Reversible airways disease Acute Lactic acidosis Acute Multiple abrasions Acute Neck strain Acute Strain of mid-back Acute COPD (chronic obstructive pulmonary disease) Acute Alcohol abuse Acute Facial laceration Acute Laceration of eyebrow, left Acute Atrial fibrillation with RVR Acute Cold exposure Acute Dehydration Acute Frostbite Acute Cold exposure Acute Back pain Acute Lower extremity cellulitis Acute Frostbite of both great toes Acute
[2017-03-08] MEDS ORDERED: LR 1,000 ML IV ONE (16:00)
--- NOTE | 2017-03-08 16:10 | PDANEPAE ---
ANE History of Present Illness toe amputation 2/2 frostbite ANE Past Medical History - Cardiovascular History Hx Hypertension: Yes Hx Arrhythmias: No Hx Chest Pain: No Hx Coronary Artery / Peripheral Vascular Disease: No Hx CHF / Valvular Disease: No Hx Palpitations: No - Pulmonary History Hx COPD: Yes Hx Asthma/Reactive Airway Disease: No Hx Recent Upper Respiratory Infection: Yes Hx Oxygen in Use at Home: No Hx Sleep Apnea: No Sleep Apnea Screening Result - Last Documented: Negative Pulmonary History Comment: Bronchitis and Pneumonia in May 2016. - Neurologic History Hx Cerebrovascular Accident: No Hx Seizures: No Hx Dementia: No - Endocrine History Hx Diabetes: No Obesity: yes - Renal History Hx Renal Disorders: No - Liver History Hx Hepatic Disorders: No - Neurological & Psychiatric Hx Hx Neurological and Psychiatric Disorders: No - Cancer History Hx Cancer: No - Congenital Disorder History Hx Congenital Disorders: No - GI History GERD: no Hx Gastrointestinal Disorders: No - Other Health History Other Health History: Full dentures - Chronic Pain History Chronic Pain: Yes - Surgical History Prior Surgeries: Cholecystectomy 1992. gastric bypass 1999. 3 spine fusions L2 -S1 2000, 2013, 2015 ANE Review of Systems Review of systems is: negative Review of Systems: ANE Patient History - Allergies Allergies/Adverse Reactions: gabapentin Allergy (Verified 03/05/17 18:11) bee stings Allergy (Severe, Uncoded 03/05/17 18:11) Anaphylaxis - Home Medications Home medications: home medication list seen and reviewed Home Medications: Fluticasone/Salmeter 250/50Mcg [Advair 250/50 (*)] 1 puffs IH BID 01/28/17 [ Last Taken 3 Days Ago ~02/22/17] Lisinopril/Hctz 20/12.5MG [Zestoretic/Prinzide 20/12.5MG (*)] 1 ea PO DAILY [Last Taken 3 Days Ago ~02/22/17] - NPO status NPO Since - Liquids (Date): 03/08/17 NPO Since - Liquids (Time): 10:30 NPO Since - Solids (Date): 03/08/17 NPO Since - Solids (Time): 09:00 - Smoking Hx Smoking Status: Heavy smoker - Family Anes Hx Family Hx Anesthesia Complications: none ANE Labs/Vital Signs - Labs Result Diagrams: 03/08/17 06:00 03/08/17 06:00 - Vital Signs Blood Pressure: 109/79 Heart Rate: 82 Respiratory Rate: 18 O2 Sat (%): 96 Height: 195.58 cm Weight: 121.2 kg ANE Physical Exam - Airway Neck exam: FROM Mallampati Score: Class 1 Mouth exam: dentures - Pulmonary Pulmonary: no respiratory distress - Cardiovascular Cardiovascular: regular rate and rhythym - ASA Status ASA Status: III ANE Anesthesia Plan Anesthesia Plan: GA w LMA
[2017-03-08] MEDS ORDERED: BUPIVACAINE 0.25% 30 ML SDV ONE (16:11)
[2017-03-08] MEDS ORDERED: PROPOFOL 200 MG/20 ML VIAL ONE ×2 (16:20)
[2017-03-08] MEDS ORDERED: fentaNYL 100 MCG/2 ML INJ ONE ×3 (16:22→18:08)
[2017-03-08] MEDS ORDERED: LIDOCAINE 2% 5 ML SDV ONE (16:23)
[2017-03-08] MEDS ORDERED: MIDAZOLAM 2 MG/2 ML VIAL IVP ONE (16:29)
[2017-03-08] MEDS ORDERED: MIDAZOLAM 2 MG/2 ML VIAL ONE (16:31)
[2017-03-08] MEDS ORDERED: DEXAMETHASONE 4 MG/ML VIAL ONE (16:49)
[2017-03-08] MEDS ORDERED: HYDROmorphONE/DILAUDID 2 MG/ML INJ ONE (16:52)
[2017-03-08] MEDS ORDERED: KETAMINE 200 MG/20 ML VIAL ONE (17:06)
[2017-03-08] MEDS ORDERED: BUPIVACAINE 0.5% 30 ML SDV ONE (17:16)
[2017-03-08] MEDS ORDERED: HYDROCODONE/APAP 5/325 TAB PO PRN (17:23)
[2017-03-08] MEDS ORDERED: DEXAMETHASONE 4 MG/ML VIAL IVP PRN (17:23)
[2017-03-08] MEDS ORDERED: ALBUTEROL 3 ML DEYVIAL IH PRN (17:23)
[2017-03-08] MEDS ORDERED: HYDROmorphONE/DILAUDID 1 MG/ML INJ IVP PRN (17:23)
[2017-03-08] MEDS ORDERED: fentaNYL 100 MCG/2 ML INJ IVP PRN (17:23)
[2017-03-08] MEDS ORDERED: LR 500 ML IV PRN (17:23)
[2017-03-08] MEDS ORDERED: NALOXONE HCL 0.4 MG/ML INJ IVP PRN (17:23)
[2017-03-08] MEDS ORDERED: PROMETHAZINE HCL 25 MG/ML INJ IVP PRN (17:23)
[2017-03-08] MEDS ORDERED: ACETAMINOPHEN 500 MG TAB PO PRN (17:23)
[2017-03-08] MEDS ORDERED: OXYCODONE/APAP 5/325 TAB PO PRN (17:23)
--- NOTE | 2017-03-08 17:53 | POSTANESTH ---
Post Anesthetic Evaluation Cardiovascular Status: Normal, Stable Respiratory Status: Normal, Stable Level of Consciousness/Mental Status: Can Participate in Eval Pain Control: Adequate, Prn Tx Ordered Nausea/Vomiting Control: Adequate, Prn Tx Ordered Complications Possibly Related to Anesthesia: None Noted
--- NOTE | 2017-03-08 18:11 | POSTOPPROG ---
Post Op Note Date of Operation: 03/08/17 Surgeon: Finn Escobar Senior Technical Specialist: ROBERTA Anesthesiologist: BRIGHT Anesthesia: GET(General Endotracheal) Pre-op Diagnosis: FROSTBITE, GANGRENE Post-op Diagnosis: SAME Indication: INFECTED 5TH TOE Procedure: PROXIMAL PHALANX AMPUTATION LEFT 5TH TOE Findings: GOOD BLOOD FLOW Inf/Abcess present in the surg proc area at time of surgery?: Yes Depth: Deep Incisional (Fascial) EBL: Minimal Complications: 0 Specimen(s): 5TH TOE
[2017-03-09] MEDS: HYDROmorphONE/DILAUDID 2 MG TAB PO PRN ×4 (02:05→13:11)
[2017-03-09] MEDS: ALBUTEROL 60 PUFFS/8 GM MDI IH SCH ×2 (05:35→11:38)
[2017-03-09 05:41] LABS: PLATELET COUNT 513 10^3/uL (150-400)
[2017-03-09] MEDS: NICOTINE 14 MG/24 HR PATCH TD SCH (08:04)
[2017-03-09] MEDS: clonazePAM 1 MG TAB PO SCH (08:04)
[2017-03-09] MEDS: ENOXAPARIN 40 MG/0.4 ML SYR SC SCH (08:04)
[2017-03-09] MEDS: PREGABALIN 25 MG CAP PO SCH (08:04)
[2017-03-09] MEDS: LISINOPRIL/HCTZ 20/12.5MG 1 EA TAB PO SCH (08:04)
[2017-03-09] MEDS: AMOXICILLIN/CLAVULANATE POT 875/125 MG TAB PO SCH (08:04)
[2017-03-09] MEDS: NIFEdipine ER 30 MG TAB PO SCH (08:05)
[2017-03-09] MEDS: PHENYTOIN SODIUM EXTENDED 100 MG CAP PO SCH (08:05)
[2017-03-09] MEDS: METOPROLOL TARTRATE 25 MG TAB PO SCH (08:05)
[2017-03-09] MEDS: ASPIRIN EC 325 MG TAB PO SCH (08:05)
[2017-03-09] MEDS: PANTOPRAZOLE SODIUM 40 MG TAB PO SCH (08:05)
[2017-03-09 08:34] VITALS: BP 125/80; RESP 18; TEMP 97.6; O2SAT 95
--- NOTE | 2017-03-09 11:20 | SOAPPROG ---
SOAP Progress Note Assessment/Plan: Assessment/Plan: 51 Y M, EtOH, homeless, gangrene of toes 2/2 frostbite, now s/ p 5th toe amputation. Redressed foot. Amp site clean with sutures. May need more surgery eventually, but nothing planned for now. Observation either as outpatient or inpatient. 03/09/17 11:18 Objective: Vital Signs Temp Pulse Resp BP Pulse Ox 36.4 C 76 18 125/80 H 95 03/09/17 08:00 03/09/17 08:00 03/09/17 08:00 03/09/17 08:00 03/09/17 08:00 Microbiology 03/08/17 17:19 Gram Stain - Final Toe - Tissue Laboratory Results 03/09/17 05:25 03/09/17 05:25 03/08/17 03/09/17 03/10/17 05:59 05:59 05:59 Intake Total 420 450 Output Total 1755 Balance 420 -1305 PT 14.2 SEC (12.0-15.0) 03/05/17 18:30 INR 1.08 (0.83-1.16) 03/05/17 18:30 ICD10 Worksheet Patient Problems: Problems Problem Status Onset Alcohol intoxication Acute Frostbite of both great toes Acute Lower extremity cellulitis Acute Abdominal pain Acute Alcohol abuse Acute Alcohol withdrawal Acute Atrial fibrillation with RVR Acute Back pain Acute COPD (chronic obstructive pulmonary disease) Acute Cold exposure Acute Cold exposure Acute Dehydration Acute Facial laceration Acute Frostbite Acute Laceration of eyebrow, left Acute Lactic acidosis Acute Multiple abrasions Acute Neck strain Acute Reversible airways disease Acute Seizure Acute Situational depression Acute Strain of mid-back Acute
[2017-03-09] MEDS: FLUTICASONE/SALMETER 250/50MCG DISKUS IH SCH (11:37)
[2017-03-09 11:46] VITALS: PULSE 82
--- NOTE | 2017-03-09 15:20 | ASMTCMCOM ---
CM Note CM Note Notes: Pt DC'd today. Pt has a bed at the [facility]. Date Signed: 03/09/2017 03:19 PM Electronically Signed By:Judi Hernandez LCSW
--- NOTE | 2017-03-09 15:21 | ASDISCHSUM ---
Discharge Information Plan Status:SNF Medically Cleared to Leave: Discharge Date:03/09/2017 02:35 PM CM D/C Disposition: ADT D/C Disposition:Home, Routine, Self-Care Projected Discharge Date:03/08/2017 11:00 AM Transportation at D/C: Discharge Delay Reason: Follow-Up Date:03/08/2017 11:00 AM Discharge Slot: Final Diagnosis: Placement Information Referral Type:*Half-Way/SNF Referral ID:[id number] Provider Name: Address 1: Phone Number: Address 2: Fax Number: City: Selection Factors: State: Patient Contact Information Contact Name:PALOMO Relationship: Address: Home Phone: Work Phone: City: [facility] Phone: [facility] Code: Email: Financial Information Financial Class: Primary Plan Desc:MEDICARE INPATIENT Primary Plan Number:[id number] Secondary Plan Desc:MEDICAID [place] Secondary Plan Number:[id number] Assessment Information [facility] CM Progress Note CM Note CM Note Notes: 03/06/2017 Case Management Note Reviewed chart. Pt is well known to case management. Pt is homeless with [facility] hospital[facility] d/t alcohol abuse. Most recent admission was on 02/25 for treatment of huynh bite. On IV ancef currently. Case Management d/c poc: TBD pending outcomes of [facility] [place] and ethics consult. Case Management to follow. Date Signed: 03/06/2017 08:52 AM Electronically Signed By:Miriam Headley RN [facility] CM Progress Note CM Note CM Note Notes: Discussed pts case in morning rounds. It was recommended that pt goes to SNF. Referrals made to [facility], [facility], [facility] and [facility]. All facilities have declined pt. Pt will be having an arterial study lower extremity tomorrow. Pt will most likely d/c back to the senior care. CM available for changes. Plan: Independent with outpatient follow up Date Signed: 03/07/2017 04:05 PM Electronically Signed By:MICHELLE Fountain [facility] Progress Note CM Note CM Note Notes: Discussed case in morning rounds. Pt will have a left 5th toe amputation. Pt will be here for a couple more days. Needs are TBD at this time. CM to follow. Plan: TBD Date Signed: 03/08/2017 03:41 PM Electronically Signed By:MICHELLE Fountain [facility] Progress Note CM Note CM Note Notes: Pt DC'd today. Pt has a bed at the senior care. Date Signed: 03/09/2017 03:19 PM Electronically Signed By:Judi Hernandez LCSW Intervention Information
--- NOTE | 2017-03-09 22:37 | GDS ---
[f rep st] DISCHARGE SUMMARY NEW AND ACUTE DIAGNOSES: 1. Left lower extremity 5th toe amputation secondary to frostbite. 2. Sepsis with an elevated lactate at 3.1, hypertension, tachycardia on admission. 3. Acute alcoholism with an alcohol level of 257 on admission. 4. Acute encephalopathy secondary to ethyl alcohol and exposure and sepsis. 5. Paroxysmal atrial fibrillation. Discharged on aspirin and diltiazem only, no anticoagulation due to medical noncompliance. 6. Homeless status. The gentleman [facility] [place]. CONSULTATIONS: 1. Infectious Disease. 2. Surgery. PROCEDURES: 1. PICC line insertion. 2. Amputation of the left 5th toe. HOSPITAL COURSE: A 51-year-old male, who presented with tenderness, swelling, and signs of infection of the left toe secondary to frostbite. He was noted to have signs of sepsis with an elevated lacta te, tachypnea and tachycardia on presentation, and acute alcohol intoxication with alcohol level of 2 57. Acute encephalopathy was felt secondary to his alcohol and acute exposure along with acute illne ss of the frostbite. There is a history of paroxysmal atrial fibrillation. Due to noncompliance, th e gentleman is not on long-term anticoagulation. During the hospitalization, he showed no signs of c ardiac dysrhythmia, and was maintained primarily in sinus rhythm. He underwent an amputation of his left 5th toe on March 08 and did well. The toe wound was revie wed with Dr. Escobar and it was felt that it was adequate for followup as an outpatient on outpatient o ral antibiotics of Augmentin. DISCHARGE MEDICATIONS: 1. New medications:. a. Augmentin 875 mg b.i.d. for 10 days, [place] 5/325 mg (#10) 1-2 p.o. q.4 hours p.r.n. pain, Lyrica (pregabalin) 25 mg p.o. t.i.d. 2. Continued medications:. a. Proventil inhaler HFA, Advair 250/50 mcg inhaler, Klonopin, diltiazem ER 120 mg daily, Protonix 4 0 mg daily, Dilantin extended 100 mg t.i.d., lisinopril/HCTZ 20/12.5 mg tablet to be taken once daily , aspirin 325 mg daily, nifedipine 30 mg daily. 3. Discontinued medication:. a. Cephalexin 500 mg q.i.d. PLAN: The gentleman will follow up in the [facility] with Dr. Diaz, where he will receive cassi st wound care and dressing changes. He has also otherwise seen at [facility]. Note that t he gentleman is homeless and sleeps in the shelters at night. He had a walking boot for care and pro tection of the amputation of his left foot. TIME: This discharge required 45 minutes, greater than 50% to counseling case manager and coordinate his care. /[id number]/MODL
--- NOTE | 2017-03-10 14:49 | GOP ---
[f rep st] OPERATIVE REPORT DATE OF OPERATION: 03/08/2017 SURGEON: Finn Escobar MD SOLE LEVELING MACHINE OPERATOR: Ni Moses NP. PREOPERATIVE DIAGNOSIS: Frostbite with gangrene of the left 5th toe. POSTOPERATIVE DIAGNOSIS: Frostbite with gangrene of the left 5th toe. PROCEDURE PERFORMED: Left 5th toe proximal phalanx amputation. FINDINGS: Adequate blood flow at the amputation site DESCRIPTION OF PROCEDURE: The patient was taken to the operating room where he received satisfactory general laryngeal mask anesthesia by Dr. Ryan. He was placed in the supine position, prepped and draped in the usual sterile fashion. An elliptical fishmouth type incision was made at the base of the 5th toe on the left foot. Dissection extended down to the bone. Soft tissue was divided. Bone was then transected well above the skin incision after clearing it of soft tissue attachments. The bone was smoothed out with a minnie rasp. The skin was closed with interrupted 3-0 nylon mattress sutures. Wound was dressed. He tolerated the procedure well. There were no complications. There was good blood flow at the skin edges. No evidence of true purulence. He tolerated the procedure well, taken to the recovery room in good condition. /[id number]/MODL MTDD
== END 2017-03-09 14:35 | disposition home or self-care (01) | DRG 853 ==
LOC: EDUNIT# → F2W 03-06 02:05
PROVIDERS: ADMIT Internal Medicine; ATTEND Internal Medicine
PROC: 02HV33Z Insertion of Infusion Device into Superior Vena Cava, Percutaneous Approach (ICD-10-PCS; 2017-03-06)
PROC: 0Y6Y0Z1 Detachment at Left 5th Toe, High, Open Approach (ICD-10-PCS; principal; 2017-03-08 16:15)
DX: A41.9 Sepsis, unspecified organism (principal); G93.41 Metabolic encephalopathy; T34.832A Frostbite with tissue necrosis of left toe(s), initial encounter; L03.116 Cellulitis of left lower limb; M48.02 Spinal stenosis, cervical region; F10.229 Alcohol dependence with intoxication, unspecified; Y90.8 Blood alcohol level of 240 mg/100 ml or more; I48.0 Paroxysmal atrial fibrillation; T45.516A Underdosing of anticoagulants, initial encounter; Z59.0 Homelessness; Z72.0 Tobacco use; I10 Essential (primary) hypertension; E78.5 Hyperlipidemia, unspecified; J44.9 Chronic obstructive pulmonary disease, unspecified; G40.901 Epilepsy, unspecified, not intractable, with status epilepticus; Y92.521 Bus station as the place of occurrence of the external cause
CPT/HCPCS: 80305; 92507-GN; 92523-GN; 96374; 97161-GP; 97165-GO; C1751; G0480; G8978-GP-CJ; G8979-GP-CI; G8987-GO-CI; G8988-GO-CH; G9165-GN-CJ; G9166-GN-CH; G9167-GN-CH; J0690; J1100; J1170; J1335; J1650; J1885; J2060; J2250; J2704; J3010

== ENCOUNTER 2017-03-10 22:32 | Emergency (ER) | payer OTHER, MEDICAID ==
--- NOTE | 2017-03-10 22:50 | EDPHY ---
H & P Stated Complaint: Feet numbness and pain, post surgery HPI/ROS: Chief Complaint: Ft pain and numbness HPI: 51-year-old male well known to this emergency department with a history of chronic alcohol abuse, homelessness. Patient was discharged today after being treated for frostbite. Patient had a toe amputation by Dr. Escobar 2 days ago. He has had case management extensively involved in his care and they have been unable to find appropriate placement for him. Patient was discharged today back to the homeless half-way with plans to follow up with the wound clinic as an outpatient. Tonight the patient called EMS because he has had increasing foot pain. Patient does admit to drinking alcohol earlier today. Denies any falls. No fevers or chills. He has been taking his medications as prescribed. ROS: 10 point Review of Systems is negative except as noted in the HPI. PMH: Chronic alcohol abuse, frostbite, toe amputation Social History: No smoking, daily heavy alcohol, no recreational drug use Family History: non-contributory Physical Exam: Gen: Awake, Alert, No Distress HEENT: Nose: no rhinorrhea Eyes: PERRLA, EOMI Mouth: Moist mucosa Neck: Supple, no JVD Chest: nontender, lungs clear to auscultation Heart: S1, S2 normal, no murmur Abd: Soft, non-tender, no guarding Back: no CVA tenderness, no midline tenderness Ext: Bilateral pedal edema. Patient has a left small toe amputation site without any discharge. Dressings are in place. There is moderate amount of erythema and post frostbite changes with necrotic tissue. No evidence of acute infection. Sensations decreased bilaterally. Skin: no rash Neuro: CN II-XII intact, Sensation grossly intact, Strength 5/5 in bilateral upper and lower extremities - Personal History Current Tetanus/Diphtheria Vaccine: Yes Current Tetanus Diphtheria and Acellular Pertussis (TDAP): Yes Tetanus Vaccine Date: 2015 - Medical/Surgical History Hx Asthma: No Hx Chronic Respiratory Disease: Yes Hx Diabetes: No Hx Cardiac Disease: No Hx Renal Disease: No Hx Cirrhosis: No Hx Alcoholism: Yes Hx HIV/AIDS: No Hx Splenectomy or Spleen Trauma: No Other PMH: PMH: htn, depression/anxiety,chronic back pain. wzjl-C4-H1-fusion, rolanda,left knee meniscus repair,gastric bypass, COPD, epilepsy, ETOH abuse - Social History Smoking Status: Heavy smoker Constitutional: Initial Vital Signs Temperature (C) 36.3 C 03/10/17 22:45 Heart Rate 88 03/10/17 22:45 Respiratory Rate 16 03/10/17 22:45 Blood Pressure 148/92 H 03/10/17 22:45 O2 Sat (%) 93 03/10/17 22:45 O2 Delivery Mode Room Air Allergies/Adverse Reactions: gabapentin Allergy (Verified 03/10/17 22:44) bee stings Allergy (Severe, Uncoded 03/10/17 22:44) Anaphylaxis Home Medications: Medication Instructions Recorded Albuterol [Proventil Inhaler HFA 1 - 2 puffs IH Q4H #1 mdi 01/19/17 (*)] Fluticasone/Salmeter 250/50Mcg 1 puffs IH BID 01/28/17 [Advair 250/50 (*)] Diltiazem Cd [Cardizem ER 120 MG 120 mg PO DAILY #8 cap 02/07/17 (*)] Pantoprazole Sodium [Protonix 40mg 40 mg PO DAILY #8 tab 02/07/17 (*)] Phenytoin Sodium Extended 100 mg PO TID #21 cap 02/07/17 [Dilantin (*)] clonazePAM [klonoPIN (*)] 1 mg PO BID #10 tab 02/07/17 Lisinopril/Hctz 20/12.5MG 1 ea PO DAILY 02/24/17 [Zestoretic/Prinzide 20/12.5MG (*)] Aspirin EC [Aspirin EC 325 mg (*)] 325 mg PO DAILY #30 tab 03/05/17 NIFEdipine ER [Adalat CC 30 mg (*)] 30 mg PO DAILY #30 tab 03/05/17 Amoxicillin/Clavulanate Pot 875 mg PO BID #20 tab 03/09/17 [Augmentin 875 MG TAB (*)] Hydrocodone/APAP 5/325 [[place] 1 - 2 tab PO Q4H PRN #10 tab 03/09/17 5/325 (*)] Pregabalin [Lyrica] 25 mg PO TID #90 cap 03/09/17 Medical Decision Making ED Course/Re-evaluation: 51-year-old male presenting with foot pain status post toe amputation secondary to recent frostbite. He is presenting with pain. I have reviewed his chart. He has had extensive evaluation and involvement with case management. They have been able unable to find placement for him. He has been discharged back to the homeless half-way with outpatient follow-up. Patient is not have a fever at this time. Does not have a white count. The he is presenting complaining of his postoperative pain. There is no evidence of acute medical process at this time. Patient unfortunately is continuing to drink alcohol. He has been advised against this. He will continue to follow up as an outpatient in the wound Clinic but there is no additional resources available to him is a in the hospital. I have discussed with Dr. Clayton, hospitalist. She states that she does not feel that there is any medical indication for admission at this time. Patient will be discharged with outpatient follow-up as already arranged. Will make a note for case management to continue to be involved as well. - Data Points Laboratory Results: Laboratory Results 03/10/17 23:20 03/10/17 03/10/17 23:20 23:20 WBC 6.66 10^3/uL 10^3/uL (3.80-9.50) RBC 4.30 10^6/uL L 10^6/uL (4.40-6.38) Hgb 10.7 g/dL L g/dL (13.7-17.5) Hct 35.2 % L % (40.0-51.0) MCV 81.9 fL fL (81.5-99.8) MCH 24.9 pg L pg (27.9-34.1) MCHC 30.4 g/dL L g/dL (32.4-36.7) RDW 24.0 % H % (11.5-15.2) Plt Count 557 10^3/uL H 10^3/uL (150-400) MPV 8.8 fL fL (8.7-11.7) Neut % (Auto) 72.5 % % (39.3-74.2) Lymph % (Auto) 20.0 % % (15.0-45.0) [place] % (Auto) 5.3 % % (4.5-13.0) Eos % (Auto) 0.9 % % (0.6-7.6) Baso % (Auto) 0.8 % % (0.3-1.7) Nucleat RBC Rel Count 0.0 % % (0.0-0.2) Absolute Neuts (auto) 4.84 10^3/uL 10^3/uL (1.70-6.50) Absolute Lymphs (auto) 1.33 10^3/uL 10^3/uL (1.00-3.00) Absolute Monos (auto) 0.35 10^3/uL 10^3/uL (0.30-0.80) Absolute Eos (auto) 0.06 10^3/uL 10^3/uL (0.03-0.40) Absolute Basos (auto) 0.05 10^3/uL 10^3/uL (0.02-0.10) Absolute Nucleated RBC 0.00 10^3/uL 10^3/uL (0-0.01) Immature Gran % 0.5 % % (0.0-1.1) Immature Gran # 0.03 10^3/uL 10^3/uL (0.00-0.10) Platelet Estimate Pending Sodium Pending Potassium Pending Chloride Pending Carbon Dioxide Pending Anion Gap Pending BUN Pending Creatinine Pending Estimated GFR Pending Glucose Pending Calcium Pending Departure - Departure Disposition: Home, Routine, Self-Care Clinical Impression: Frostbite, Foot pain Condition: Good Instructions: Frostbite (ED) Additional Instructions: Follow up at the Wound Clinic tomorrow as scheduled. Return to the emergency department for fever, uncontrolled nausea or vomiting, or any other concerns. Referrals: Finn Escobar MD [Medical Doctor] - As per Instructions
[2017-03-10 23:27] LABS: PLATELET COUNT 557 10^3/uL (150-400)
[2017-03-11] MEDS ORDERED: HYDROCOD/APAP 5/325 PREPACK#6 BTL TAKEHOME ONE ×2 (05:24→05:26)
[2017-03-11] MEDS ORDERED: HYDROCODONE/APAP 5/325 TAB ONE (05:24)
[2017-03-11] MEDS ORDERED: HYDROCODONE/APAP 5/325 TAB PO ONE (05:26)
[2017-03-11 05:49] VITALS: BP 130/60; PULSE 95; RESP 18; TEMP 98.4; O2SAT 94
== END 2017-03-11 05:57 | disposition home or self-care (01) ==
LOC: EDUNIT#
DX: T34.822D Frostbite with tissue necrosis of left foot, subsequent encounter (principal); I10 Essential (primary) hypertension; J44.9 Chronic obstructive pulmonary disease, unspecified; F17.200 Nicotine dependence, unspecified, uncomplicated; Z79.82 Long term (current) use of aspirin; X31.XXXD Exposure to excessive natural cold, subsequent encounter

== ENCOUNTER 2017-03-14 14:19 | Inpatient (IN) | payer OTHER, MEDICAID ==
[2017-03-14] MEDS ORDERED: ONDANSETRON 4 MG/2 ML VIAL IVP PRN (15:41)
[2017-03-14] MEDS: OXYCODONE/APAP 5/325 TAB PO PRN ×2 (16:00→22:18)
[2017-03-14] MEDS ORDERED: PROTOCOL MAGNESIUM 1 DOSE IV PRN (17:26)
[2017-03-14] MEDS ORDERED: PROTOCOL POTASSIUM 1 DOSE MISC PRN (17:26)
[2017-03-14] MEDS: D5W 1/2 NS W/ 20 KCl/L 1,000 ML IV SCH (17:27)
[2017-03-14] MEDS: LORazepam 2 MG/ML INJ IVP PRN ×4 (17:34→23:50)
--- NOTE | 2017-03-14 17:34 | PDHOSCONS ---
Hospitalist Consult Hospitalist Consult: Referring physician: Dr. Escobar HPI: this is a 51 yo male who was recently admitted with bilateral foot frostbite and gangrene which required left 5th toe amputation. He was readmitted today to the surgery service for planned additional toe/s amputation of the left foot. He is a alcoholic with a hx of severed WD including seizures whose last drink was 2 days ago. He appears to be in WD currently. He also has a hx of pAfib. He reports that he is compliant with all his medications. His medication list is currently being compiled. He was d/c on Augmentin and he continues to take these. He denies fevers, CP, SOB, n/V/d, palpitations, leg swelling or other. ROS: 10 point ROS obtained and is positive per above otherwise negative PMH: alcoholism, sz d/o, gangrene and frostbite to both feet, pAfib, homelessness, bipolar, obesity, chronic back pain, neuropathy, copd PSHx: amputation of left 5th toe, total knee arthroplasty, gastric bypass, cholecystectomy SHx: +T, ETOH, homelessness FmHx: noncontributory Labs: none available yet O: VSS, GEN: TREMULOUS, PLEASANT HEENT: PERRL, EOMI, MMM NECK: NO JVD, SUPPLE CV: RRR LUNGS: CTA B ABD: S/NT/ND EXT: NO EDEMA. DRESSING TO BOTH FEET NEURO: TREMULOUS, AAOX3 PSYCH: MOOD APPROPRIATE, SOME ANXIETY I/P #BILATERAL FOOT/TOES FROSTBITE WITH GANGRENE -plan for additional Left toe/s amputation #Acute on chronic alcoholism with acute WD -He has required high amounts of Librium in the past, will restart -CIWA -scheduled beer #pAfib: will restart Diltiazem once med list is available. He is not on AC. He is on an Aspirin at home which will be temporarily held. He appears to be in SR #Homelessness #DVT proph: per primary thank you for this consult, we will follow along with you.
[2017-03-14] MEDS ORDERED: ALBUTEROL 60 PUFFS/8 GM MDI IH PRN (18:19)
[2017-03-14] MEDS: HYDROmorphONE/DILAUDID 1 MG/ML INJ IVP PRN ×3 (18:24→23:41)
[2017-03-14] MEDS: BEER 1 EACH EA PO SCH (18:24)
[2017-03-14] MEDS: THIAMINE HCL 500 MG in NS 250 ML IV SCH (19:17)
[2017-03-14] MEDS: AMOXICILLIN/CLAVULANATE POT 875/125 MG TAB PO SCH (20:37)
[2017-03-14] MEDS ORDERED: POTASSIUM CL 20 MEQ TAB PO ONE (21:00)
[2017-03-14] MEDS: FLUTICASONE/SALMETER 250/50MCG DISKUS IH SCH (21:56)
[2017-03-14] MEDS: chlordiazePOXIDE 25 MG CAP PO SCH (22:18)
[2017-03-15] MEDS: HYDROmorphONE/DILAUDID 1 MG/ML INJ IVP PRN ×4 (02:23→20:41)
[2017-03-15] MEDS: LORazepam 2 MG/ML INJ IVP PRN ×3 (04:29→11:48)
[2017-03-15] MEDS: OXYCODONE/APAP 5/325 TAB PO PRN ×3 (04:30→17:51)
[2017-03-15 04:57] LABS: PLATELET COUNT 384 10^3/uL (150-400)
[2017-03-15] MEDS: clonazePAM 0.5 MG TAB PO PRN (06:41)
[2017-03-15] MEDS: LISINOPRIL/HCTZ 20/12.5MG 1 EA TAB PO SCH (08:12)
[2017-03-15] MEDS: PHENYTOIN SODIUM EXTENDED 100 MG CAP PO SCH (08:12)
[2017-03-15] MEDS: AMOXICILLIN/CLAVULANATE POT 875/125 MG TAB PO SCH ×2 (08:12→20:40)
[2017-03-15] MEDS: FOLIC ACID 1 MG TAB PO SCH (08:12)
[2017-03-15] MEDS: D5W 1/2 NS W/ 20 KCl/L 1,000 ML IV SCH (08:12)
[2017-03-15] MEDS: MULTIVITAMINS 1 EACH TAB PO SCH (08:13)
[2017-03-15] MEDS: chlordiazePOXIDE 25 MG CAP PO SCH ×2 (08:13→16:02)
[2017-03-15] MEDS: NICOTINE 21 MG/24 HR PATCH TD SCH (08:13)
[2017-03-15] MEDS: BEER 1 EACH EA PO SCH ×3 (08:15→18:39)
[2017-03-15] MEDS: FLUTICASONE/SALMETER 250/50MCG DISKUS IH SCH ×2 (08:22→20:49)
[2017-03-15] MEDS: THIAMINE HCL 500 MG in NS 250 ML IV SCH (08:41)
--- NOTE | 2017-03-15 09:42 | ASMTCMCOM ---
CM Note CM Note Notes: 03/15/2017 Case Management Note Reviewed chart. Pt is well known to case management with frequent hospitalizations d/t ETOH use. Pt admitted for possible heel debridement. Case management d/c needs are unclear at this time. Will wait for PT and OT evals and those recommendations for d/c planning. Pt has been declined by area SNF rehabs in the last 30 days during prior hospitalizations. Pt likely to d/c homeless to the correction. Pt is well resourced in the community but historically has not shown up for scheduled appointments. Case Management d/c poc: TBD. Case Management to follow. Date Signed: 03/15/2017 09:41 AM Electronically Signed By:Miriam Headley RN
--- NOTE | 2017-03-15 09:45 | SOAPPROG ---
SOAP Progress Note Assessment/Plan: Assessment: afebrile/ no new problems/ risks and options fully discussed toes no change Plan:left toe amputations 1-4 03/15/17 09:44 Objective: Vital Signs Temp Pulse Resp BP Pulse Ox 36.3 C 81 18 134/75 H 94 03/15/17 07:27 03/15/17 07:27 03/15/17 07:27 03/15/17 08:12 03/15/17 07:27 Laboratory Results 03/15/17 04:27 03/15/17 04:27 03/14/17 03/15/17 03/16/17 05:59 05:59 05:59 Intake Total 1395 Output Total 150 150 Balance 1245 -150 ICD10 Worksheet Patient Problems: Problems Problem Status Onset Abdominal pain Acute Alcohol abuse Acute Alcohol intoxication Acute Alcohol withdrawal Acute Atrial fibrillation with RVR Acute Back pain Acute COPD (chronic obstructive pulmonary disease) Acute Cold exposure Acute Cold exposure Acute Dehydration Acute Facial laceration Acute Frostbite Acute Frostbite of both great toes Acute Laceration of eyebrow, left Acute Lactic acidosis Acute Lower extremity cellulitis Acute Multiple abrasions Acute Neck strain Acute Reversible airways disease Acute Seizure Acute Situational depression Acute Strain of mid-back Acute
[2017-03-15] MEDS ORDERED: BUPIVACAINE 0.5% 30 ML SDV ONE (11:31)
[2017-03-15] MEDS ORDERED: HYDROmorphONE/DILAUDID 2 MG/ML INJ ONE ×2 (12:11→13:19)
--- NOTE | 2017-03-15 12:12 | PDHPUP ---
History & Physical Update H&P update statement: This history and physical update is based on an assessment of the patient which was completed after admission or registration (within 24 hours), but prior to the surgery/procedure.
[2017-03-15] MEDS ORDERED: HYDROmorphONE/DILAUDID 2 MG/ML INJ IVP PRN (12:30)
[2017-03-15] MEDS ORDERED: MIDAZOLAM 2 MG/2 ML VIAL ONE (13:03)
[2017-03-15] MEDS ORDERED: MIDAZOLAM 2 MG/2 ML VIAL IVP ONE (13:03)
--- NOTE | 2017-03-15 13:03 | PDANEPAE ---
ANE History of Present Illness h/o gangrene 2/2 frostbite of LLE ANE Past Medical History - Cardiovascular History Hx Hypertension: Yes Hx Arrhythmias: No Hx Chest Pain: No Hx Coronary Artery / Peripheral Vascular Disease: No Hx CHF / Valvular Disease: No Hx Palpitations: No - Pulmonary History Hx COPD: Yes Hx Asthma/Reactive Airway Disease: No Hx Recent Upper Respiratory Infection: Yes Hx Oxygen in Use at Home: No Hx Sleep Apnea: No Sleep Apnea Screening Result - Last Documented: Negative Pulmonary History Comment: Bronchitis and Pneumonia in May 2016. - Neurologic History Hx Cerebrovascular Accident: No Hx Seizures: No Hx Dementia: No - Endocrine History Hx Diabetes: No - Renal History Hx Renal Disorders: No - Liver History Hx Hepatic Disorders: No - Neurological & Psychiatric Hx Hx Neurological and Psychiatric Disorders: No - Cancer History Hx Cancer: No - Congenital Disorder History Hx Congenital Disorders: No - GI History Hx Gastrointestinal Disorders: No - Other Health History Other Health History: Full dentures - Chronic Pain History Chronic Pain: Yes - Surgical History Prior Surgeries: Cholecystectomy 1992. gastric bypass 1999. 3 spine fusions L2 -S1 2000, 2013, 2015 ANE Review of Systems Review of systems is: negative Review of Systems: - Exercise capacity Exercise capacity: limited by disability ANE Patient History - Allergies Allergies/Adverse Reactions: gabapentin Allergy (Verified 03/10/17 22:44) bee stings Allergy (Severe, Uncoded 03/10/17 22:44) Anaphylaxis - Home Medications Home medications: home medication list seen and reviewed Home Medications: Fluticasone/Salmeter 250/50Mcg [Advair 250/50 (*)] 1 puffs IH BID 01/28/17 [ Last Taken 03/14/17 08:00] Lisinopril/Hctz 20/12.5MG [Zestoretic/Prinzide 20/12.5MG (*)] 1 ea PO DAILY [Last Taken 03/14/17 08:00] Albuterol [Proventil Inhaler HFA (*)] 2 puffs IH Q4H PRN 03/14/17 [Last Taken 21:00] Phenytoin Sodium Extended [Dilantin (*)] 100 mg PO DAILY 03/14/17 [Last Taken ] clonazePAM [klonoPIN (*)] 1 mg PO BID PRN 03/14/17 [Last Taken Unknown] - NPO status NPO Since - Liquids (Date): 03/15/17 NPO Since - Liquids (Time): 07:15 NPO Since - Solids (Date): 03/15/17 NPO Since - Solids (Time): 07:15 - Anes Hx Anes Hx: no prior problems - Smoking Hx Smoking Status: Heavy smoker - Family Anes Hx Family Hx Anesthesia Complications: none ANE Labs/Vital Signs - Labs Result Diagrams: 03/15/17 04:27 03/15/17 04:27 - Vital Signs Blood Pressure: 119/80 Heart Rate: 81 Respiratory Rate: 16 O2 Sat (%): 94 Height: 195.58 cm Weight: 111.584 kg ANE Physical Exam - Airway Neck exam: FROM Mallampati Score: Class 1 Mouth exam: poor dentition - Pulmonary Pulmonary: no respiratory distress - Cardiovascular Cardiovascular: regular rate and rhythym - ASA Status ASA Status: II ANE Anesthesia Plan Anesthesia Plan: GA w LMA
[2017-03-15] MEDS ORDERED: fentaNYL 100 MCG/2 ML INJ ONE (13:06)
[2017-03-15] MEDS ORDERED: KETAMINE 200 MG/20 ML VIAL ONE (13:07)
[2017-03-15] MEDS ORDERED: PROPOFOL 200 MG/20 ML VIAL ONE ×2 (13:07)
[2017-03-15] MEDS ORDERED: LIDOCAINE 2% 5 ML SDV ONE (13:10)
[2017-03-15] MEDS ORDERED: DEXAMETHASONE 4 MG/ML VIAL ONE (13:19)
[2017-03-15] MEDS ORDERED: KETOROLAC 30 MG/1 ML SDV ONE (13:19)
[2017-03-15] MEDS ORDERED: ONDANSETRON 4 MG/2 ML VIAL ONE (13:19)
[2017-03-15] MEDS ORDERED: ERTAPENEM 1 GM VIAL IV ONE (13:45)
[2017-03-15] MEDS ORDERED: fentaNYL 100 MCG/2 ML INJ IVP PRN (13:51)
[2017-03-15] MEDS ORDERED: METOCLOPRAMIDE 10 MG/2 ML VIAL IVP PRN (13:51)
[2017-03-15] MEDS ORDERED: ACETAMINOPHEN 500 MG TAB PO PRN (13:51)
[2017-03-15] MEDS ORDERED: HYDROmorphONE/DILAUDID 1 MG/ML INJ IVP PRN (13:51)
[2017-03-15] MEDS ORDERED: ONDANSETRON 4 MG/2 ML VIAL IVP PRN (13:51)
[2017-03-15] MEDS ORDERED: NS 500 ML IV PRN (13:51)
[2017-03-15] MEDS ORDERED: OXYCODONE/APAP 5/325 TAB PO PRN (13:51)
[2017-03-15] MEDS ORDERED: HYDROCODONE/APAP 5/325 TAB PO PRN (13:51)
[2017-03-15] MEDS ORDERED: PROMETHAZINE HCL 25 MG/ML INJ IVP PRN (13:51)
[2017-03-15] MEDS ORDERED: ALBUTEROL 3 ML DEYVIAL IH PRN (13:51)
[2017-03-15] MEDS ORDERED: NALOXONE HCL 0.4 MG/ML INJ IVP PRN (13:51)
--- NOTE | 2017-03-15 14:49 | POSTOPPROG ---
Post Op Note Date of Operation: 03/15/17 Surgeon: Finn Escobar Machine Bander And Cellophaner Helper: Josué Anesthesiologist: Connor Anesthesia: GET(General Endotracheal) Pre-op Diagnosis: Left first through fourth toe necrosis Post-op Diagnosis: same Indication: same Procedure: left first through third toe amputation Findings: Fourth toe healthy enough to leave Inf/Abcess present in the surg proc area at time of surgery?: No EBL: Minimal
--- NOTE | 2017-03-15 15:12 | HOSPPROG ---
Hospitalist Progress Note Assessment/Plan: 51y male with toe pain. First encounter, chart reviewed. D/W Dr Escobar. #BILATERAL FOOT/TOES FROSTBITE WITH GANGRENE -plan for additional Left toe/s amputation today -reviewed with Dr Escobar #Acute on chronic alcoholism with acute WD -He has required high amounts of Librium in the past, will restart - cont scheduled beer DC CIWA #pAfib: -restarted Diltiazem once med list is available. -He is not on AC given his noncompliance - He is on an Aspirin at home which will be temporarily held. -He appears to be in SR #Homelessness -D/W DM #DVT proph: per primary #Dispo -inpt status -pt to OR today Subjective: No pain. Lethargic postop. Objective: Vital Signs Temp Pulse Resp BP Pulse Ox 36.5 C 81 19 124/70 H 97 03/15/17 14:21 03/15/17 13:11 03/15/17 14:40 03/15/17 14:36 03/15/17 14:40 Laboratory Results 03/15/17 04:27 03/15/17 04:27 03/14/17 03/15/17 03/16/17 05:59 05:59 05:59 Intake Total 1395 Output Total 150 450 Balance 1245 -450 - Physical Exam Constitutional: appears nourished, not in pain, chronically ill appearing Eyes: PERRL, anicteric sclera, EOMI Ears, Nose, Mouth, Throat: moist mucous membranes, hearing normal, ears appear normal Cardiovascular: No JVD, No tachycardia, No edema Respiratory: no respiratory distress, no rales or rhonchi, reduced air movement Gastrointestinal: normoactive bowel sounds, No tenderness, No ascites Skin: warm, abrasion, No rash Musculoskeletal: normal joint ROM, no joint effusions, generalized weakness Psychiatric: not anxious, not encephalopathic, poor insight, poor judgement ICD10 Worksheet Patient Problems: Problems Problem Status Onset Situational depression Acute Seizure Acute Alcohol withdrawal Acute Abdominal pain Acute Alcohol intoxication Acute Reversible airways disease Acute Lactic acidosis Acute Multiple abrasions Acute Neck strain Acute Strain of mid-back Acute COPD (chronic obstructive pulmonary disease) Acute Alcohol abuse Acute Facial laceration Acute Laceration of eyebrow, left Acute Atrial fibrillation with RVR Acute Cold exposure Acute Dehydration Acute Frostbite Acute Cold exposure Acute Back pain Acute Lower extremity cellulitis Acute Frostbite of both great toes Acute
--- NOTE | 2017-03-15 15:42 | PDMN ---
Medical Necessity Medical necessity: est los>2mn for L 1st-3rd toe amputation for necrosis, in active etoh withdrawal on admission, requiring ; admit for surgical intervention , CIWA w/hx requiring high doses Librium in the past; comorbid homelessness, pAfib and homelessness; per order and hospitalist note 03/15/17
[2017-03-15] MEDS: LORazepam 1 MG TAB PO PRN ×2 (17:51→18:33)
[2017-03-16] MEDS: OXYCODONE/APAP 5/325 TAB PO PRN ×4 (00:43→18:10)
[2017-03-16] MEDS: HYDROmorphONE/DILAUDID 1 MG/ML INJ IVP PRN ×6 (00:46→20:51)
[2017-03-16] MEDS: FOLIC ACID 1 MG TAB PO SCH (08:12)
[2017-03-16] MEDS: AMOXICILLIN/CLAVULANATE POT 875/125 MG TAB PO SCH (08:12)
[2017-03-16] MEDS: ERTAPENEM 1 GM VIAL IV SCH (08:12)
[2017-03-16] MEDS: MULTIVITAMINS 1 EACH TAB PO SCH (08:12)
[2017-03-16] MEDS: PHENYTOIN SODIUM EXTENDED 100 MG CAP PO SCH (08:12)
[2017-03-16] MEDS: NICOTINE 21 MG/24 HR PATCH TD SCH (08:13)
[2017-03-16] MEDS: LISINOPRIL/HCTZ 20/12.5MG 1 EA TAB PO SCH (08:13)
[2017-03-16] MEDS: FLUTICASONE/SALMETER 250/50MCG DISKUS IH SCH ×2 (08:32→22:05)
[2017-03-16] MEDS: THIAMINE HCL 500 MG in NS 250 ML IV SCH (10:12)
--- NOTE | 2017-03-16 10:46 | HOSPPROG ---
Hospitalist Progress Note Assessment/Plan: 51y male with toe pain. #BILATERAL FOOT/TOES FROSTBITE WITH GANGRENE -POD #1 Left toe/s amputation -stable -on invanz #Acute on chronic alcoholism with acute WD -doing well -cont scheduled beer -DC CIWA #pAfib: -restarted Diltiazem -He is not on AC given his noncompliance -He is on an Aspirin at home which will be temporarily held. -He appears to be in SR #Homelessness -D/W CM #DVT proph: per primary #Dispo -inpt status -DC ok with medicine -per surgery Subjective: Up walking. No issues. Objective: Vital Signs Temp Pulse Resp BP Pulse Ox 36.5 C 104 H 16 140/88 H 97 03/16/17 07:17 03/16/17 08:34 03/16/17 08:34 03/16/17 07:17 03/16/17 08:34 Laboratory Results 03/15/17 04:27 03/16/17 04:39 03/15/17 03/16/17 03/17/17 05:59 05:59 05:59 Intake Total 1395 1100 Output Total 150 760 Balance 1245 340 - Physical Exam Constitutional: appears nourished, chronically ill appearing Eyes: PERRL, anicteric sclera Ears, Nose, Mouth, Throat: moist mucous membranes, hearing normal Cardiovascular: No JVD, No edema Respiratory: no respiratory distress, reduced air movement Gastrointestinal: No tenderness, No ascites Skin: warm, No mottled Musculoskeletal: normal joint ROM, no joint effusions Neurologic: AAOx3 Psychiatric: not anxious, not encephalopathic, poor insight, poor judgement ICD10 Worksheet Patient Problems: Problems Problem Status Onset Situational depression Acute Seizure Acute Alcohol withdrawal Acute Abdominal pain Acute Alcohol intoxication Acute Reversible airways disease Acute Lactic acidosis Acute Multiple abrasions Acute Neck strain Acute Strain of mid-back Acute COPD (chronic obstructive pulmonary disease) Acute Alcohol abuse Acute Facial laceration Acute Laceration of eyebrow, left Acute Atrial fibrillation with RVR Acute Cold exposure Acute Dehydration Acute Frostbite Acute Cold exposure Acute Back pain Acute Lower extremity cellulitis Acute Frostbite of both great toes Acute
[2017-03-16] MEDS: LORazepam 1 MG TAB PO PRN ×2 (12:50→20:11)
--- NOTE | 2017-03-16 21:21 | GOP ---
[f rep st] OPERATIVE REPORT DATE OF OPERATION: 03/15/2017 SURGEON: Finn Escobar MD METER MECHANIC: Ni Moses NP. PREOPERATIVE DIAGNOSIS: Frostbite and gangrenous toes. POSTOPERATIVE DIAGNOSIS: Frostbite and gangrenous toes. PROCEDURE PERFORMED: Left 1st, 2nd, and 3rd proximal phalangeal toe amputations. FINDINGS: Patient was found to have reduced blood flow at this level, making the chances of healing somewhat suspect despite what appeared to be viable skin externally. DESCRIPTION OF PROCEDURE: The patient was taken to the operating room where he received satisfactory general endotracheal anesthesia, placed in a supine position, prepped and draped in the usual steril e fashion. [place] type incisions were made at the base of the toes 1, 2 and 3 of his left foot an d dissection extended down through the soft tissue down to the proximal phalanx. This was divided wi th a power saw. All soft tissue was freed up from the bone, and the toes were individually removed. There was no evidence of major infection or purulence. However, there was a disappointment in the a mount of blood flow at this level. Hemostasis was obtained with electrocautery, and the wounds were closed loosely with 3-0 Prolene sutures after trimming back any definitely nonviable tissue. Wounds were dressed. He was taken to the recovery room in good condition. There were no complications. /[id number]/MODL
[2017-03-17] MEDS: HYDROmorphONE/DILAUDID 1 MG/ML INJ IVP PRN ×9 (00:16→23:16)
[2017-03-17] MEDS: OXYCODONE/APAP 5/325 TAB PO PRN (00:17)
[2017-03-17] MEDS: oxyCODONE IR 5 MG TAB PO PRN ×5 (03:43→21:11)
[2017-03-17] MEDS: NICOTINE 21 MG/24 HR PATCH TD SCH (08:23)
[2017-03-17] MEDS: FOLIC ACID 1 MG TAB PO SCH (08:23)
[2017-03-17] MEDS: PHENYTOIN SODIUM EXTENDED 100 MG CAP PO SCH (08:23)
[2017-03-17] MEDS: LISINOPRIL/HCTZ 20/12.5MG 1 EA TAB PO SCH (08:24)
[2017-03-17] MEDS: THIAMINE HCL 100 MG TAB PO SCH (08:24)
[2017-03-17] MEDS: MULTIVITAMINS 1 EACH TAB PO SCH (08:24)
[2017-03-17] MEDS: ERTAPENEM 1 GM VIAL IV SCH (09:47)
--- NOTE | 2017-03-17 12:00 | HOSPPROG ---
Hospitalist Progress Note Assessment/Plan: 51y male with toe pain. #BILATERAL FOOT/TOES FROSTBITE WITH GANGRENE -POD #2 Left toe/s amputation -stable -on invanz #Acute on chronic alcoholism with acute WD -doing well -cont scheduled beer -DC CIWA #pAfib: -restarted Diltiazem -He is not on AC given his noncompliance -He is on an Aspirin at home which will be temporarily held. -He appears to be in SR #Homelessness -D/W CM #DVT proph: per primary #Dispo -inpt status -DC ok with medicine -per surgery Subjective: Up in bed. No issues. Objective: Vital Signs Temp Pulse Resp BP Pulse Ox 36.8 C 70 16 152/91 H 97 03/17/17 07:09 03/17/17 07:09 03/17/17 07:09 03/17/17 08:24 03/17/17 07:09 Laboratory Results 03/15/17 04:27 03/16/17 04:39 03/16/17 03/17/17 03/18/17 05:59 05:59 05:59 Intake Total 1100 165 Output Total 760 Balance 340 165 - Physical Exam Constitutional: chronically ill appearing, obese Eyes: PERRL, anicteric sclera Ears, Nose, Mouth, Throat: moist mucous membranes, ears appear normal Cardiovascular: No JVD, No edema Respiratory: no respiratory distress, reduced air movement Gastrointestinal: No tenderness, No ascites Skin: warm, No mottled Musculoskeletal: no joint effusions, generalized weakness Neurologic: AAOx3 Psychiatric: not anxious, poor insight, poor judgement ICD10 Worksheet Patient Problems: Problems Problem Status Onset Situational depression Acute Seizure Acute Alcohol withdrawal Acute Abdominal pain Acute Alcohol intoxication Acute Reversible airways disease Acute Lactic acidosis Acute Multiple abrasions Acute Neck strain Acute Strain of mid-back Acute COPD (chronic obstructive pulmonary disease) Acute Alcohol abuse Acute Facial laceration Acute Laceration of eyebrow, left Acute Atrial fibrillation with RVR Acute Cold exposure Acute Dehydration Acute Frostbite Acute Cold exposure Acute Back pain Acute Lower extremity cellulitis Acute Frostbite of both great toes Acute
[2017-03-17] MEDS: FLUTICASONE/SALMETER 250/50MCG DISKUS IH SCH ×2 (12:23→22:15)
--- NOTE | 2017-03-17 17:11 | SOAPPROG ---
SOAP Progress Note Assessment/Plan: Assessment: afebrile/ no new problems/ risks and options fully discussed toes no change Plan:left toe amputations 1-4 03/15/17 09:44 03/17/17 17:06 stable wounds but needs to stay off left foot with heel damage/ will need placement will need off-load boot Objective: Vital Signs Temp Pulse Resp BP Pulse Ox 36.7 C 89 18 121/72 H 91 L 03/17/17 15:18 03/17/17 15:18 03/17/17 15:18 03/17/17 15:18 03/17/17 15:18 Laboratory Results 03/15/17 04:27 03/16/17 04:39 03/16/17 03/17/17 03/18/17 05:59 05:59 05:59 Intake Total 1100 165 Output Total 760 Balance 340 165 ICD10 Worksheet Patient Problems: Problems Problem Status Onset Abdominal pain Acute Alcohol abuse Acute Alcohol intoxication Acute Alcohol withdrawal Acute Atrial fibrillation with RVR Acute Back pain Acute COPD (chronic obstructive pulmonary disease) Acute Cold exposure Acute Cold exposure Acute Dehydration Acute Facial laceration Acute Frostbite Acute Frostbite of both great toes Acute Laceration of eyebrow, left Acute Lactic acidosis Acute Lower extremity cellulitis Acute Multiple abrasions Acute Neck strain Acute Reversible airways disease Acute Seizure Acute Situational depression Acute Strain of mid-back Acute
[2017-03-18] MEDS: oxyCODONE IR 5 MG TAB PO PRN ×3 (01:34→09:54)
[2017-03-18] MEDS: HYDROmorphONE/DILAUDID 1 MG/ML INJ IVP PRN ×6 (01:34→20:33)
[2017-03-18] MEDS: FLUTICASONE/SALMETER 250/50MCG DISKUS IH SCH ×2 (08:02→21:37)
[2017-03-18] MEDS: ERTAPENEM 1 GM VIAL IV SCH (08:14)
[2017-03-18] MEDS: PHENYTOIN SODIUM EXTENDED 100 MG CAP PO SCH (08:15)
[2017-03-18] MEDS: FOLIC ACID 1 MG TAB PO SCH (08:15)
[2017-03-18] MEDS: LISINOPRIL/HCTZ 20/12.5MG 1 EA TAB PO SCH (08:15)
[2017-03-18] MEDS: MULTIVITAMINS 1 EACH TAB PO SCH (08:15)
[2017-03-18] MEDS: THIAMINE HCL 100 MG TAB PO SCH (08:15)
[2017-03-18] MEDS: NICOTINE 21 MG/24 HR PATCH TD SCH (08:16)
--- NOTE | 2017-03-18 11:11 | SOAPPROG ---
SOAP Progress Note Assessment/Plan: Assessment: 51 y/o male s/p left 1-3, 5 toe amputations for necrosis. S: Pt doing well overall. Still having some pain. Taking regularly scheduled IV dilaudid. He is open to finding placement for living, as opposed to the homeless [facility] he has been in. O: A&O x3 Resp: No WOB Cardiac: RRR Skin: Left 1-3,5 toes sutures intact. Serosanguinous drainage with erosion. Hard, dry, black eschar. Plan: 03/18/17 11:06 Plan to get him off of IV meds and switch to oral dilaudid only. Spoke with classification case manager who will try to find placement for him after discharge. 03/18/17 12:24 03/18/17 12:26 Subjective: . Objective: Vital Signs Temp Pulse Resp BP Pulse Ox 36.4 C 77 16 128/81 H 90 L 03/18/17 08:00 03/18/17 08:00 03/18/17 08:00 03/18/17 08:15 03/18/17 08:00 Laboratory Results 03/15/17 04:27 03/16/17 04:39 03/17/17 03/18/17 03/19/17 05:59 05:59 05:59 Intake Total 165 Balance 165 ICD10 Worksheet Patient Problems: Problems Problem Status Onset Abdominal pain Acute Alcohol abuse Acute Alcohol intoxication Acute Alcohol withdrawal Acute Atrial fibrillation with RVR Acute Back pain Acute COPD (chronic obstructive pulmonary disease) Acute Cold exposure Acute Cold exposure Acute Dehydration Acute Facial laceration Acute Frostbite Acute Frostbite of both great toes Acute Laceration of eyebrow, left Acute Lactic acidosis Acute Lower extremity cellulitis Acute Multiple abrasions Acute Neck strain Acute Reversible airways disease Acute Seizure Acute Situational depression Acute Strain of mid-back Acute
--- NOTE | 2017-03-18 11:22 | HOSPPROG ---
Hospitalist Progress Note Assessment/Plan: 51 y/o male s/p left 1-3, 5 toe amputations for necrosis. Today is my first encounter w the patient, chart reviewed. #Bilateral foot frostbite w gangrene -s/p Left toe/s amputation 1-4 -stable -on Invanz -pain managed with Dilaudid #Acute on chronic alcoholism with acute WD -patient has requested for beer to stop/ says he isn't drinking it and wants to abstain #pAfib: -restarted Diltiazem -He is not on AC given his noncompliance -He is on an Aspirin at home which will be temporarily held. -He appears to be in SR #anemia #Homelessness -D/W CM -patient says he has a long-term bed in the upstairs area which is tank cleaner -he has 2 teenage daughters in foster care #DVT proph: per primary Subjective: Jonathan said he's having some pain to his left foot. Objective: Vital Signs Temp Pulse Resp BP Pulse Ox 36.4 C 77 16 128/81 H 90 L 03/18/17 08:00 03/18/17 08:00 03/18/17 08:00 03/18/17 08:15 03/18/17 08:00 Laboratory Results 03/15/17 04:27 03/16/17 04:39 03/17/17 03/18/17 03/19/17 05:59 05:59 05:59 Intake Total 165 Balance 165 - Physical Exam Constitutional: no apparent distress, appears nourished, No not in pain Eyes: PERRL Ears, Nose, Mouth, Throat: hearing normal Cardiovascular: regular rate and rhythym Respiratory: no respiratory distress Gastrointestinal: normoactive bowel sounds Skin: warm, other (left foot in dressing) Musculoskeletal: generalized weakness Neurologic: AAOx3 Psychiatric: interacting appropriately, not anxious, not encephalopathic, thought process linear ICD10 Worksheet Patient Problems: Problems Problem Status Onset Abdominal pain Acute Alcohol abuse Acute Alcohol intoxication Acute Alcohol withdrawal Acute Atrial fibrillation with RVR Acute Back pain Acute COPD (chronic obstructive pulmonary disease) Acute Cold exposure Acute Cold exposure Acute Dehydration Acute Facial laceration Acute Frostbite Acute Frostbite of both great toes Acute Laceration of eyebrow, left Acute Lactic acidosis Acute Lower extremity cellulitis Acute Multiple abrasions Acute Neck strain Acute Reversible airways disease Acute Seizure Acute Situational depression Acute Strain of mid-back Acute
[2017-03-18] MEDS: HYDROmorphONE/DILAUDID 4 MG TAB PO PRN ×4 (12:17→21:58)
--- NOTE | 2017-03-18 16:49 | ASMTCMCOM ---
CM Note CM Note Notes: I spoke with multiple providers (surgery PA, hospitalist, RN) regarding discharge plans for this patient. PT has cleared him for "home," but patient lives on the streets and ambulating may be a challenge given his recent toe amputation. Patient is a difficult SNF placement d/t history of leaving hospital AMA and alcoholism. Nevertheless, I sent referrals to a number of facilities in the area. Elizabeth from [facility] visited with patient today and will check his benefits tomorrow. Dao from [place] is also looking at patient. Obviously, everyone is curious as to his plan after rehab. Patient claims that he has money and can stay in hotels. CM will continue to follow. Current CM discharge plan: TBD Date Signed: 03/18/2017 04:40 PM Electronically Signed By:Beronica Hand RN
[2017-03-19] MEDS: HYDROmorphONE/DILAUDID 4 MG TAB PO PRN ×6 (04:10→20:27)
[2017-03-19] MEDS: LORazepam 1 MG TAB PO PRN (05:11)
[2017-03-19] MEDS: THIAMINE HCL 100 MG TAB PO SCH (08:50)
[2017-03-19] MEDS: FOLIC ACID 1 MG TAB PO SCH (08:50)
[2017-03-19] MEDS: MULTIVITAMINS 1 EACH TAB PO SCH (08:50)
[2017-03-19] MEDS: LISINOPRIL/HCTZ 20/12.5MG 1 EA TAB PO SCH (08:50)
[2017-03-19] MEDS: PHENYTOIN SODIUM EXTENDED 100 MG CAP PO SCH (08:50)
[2017-03-19] MEDS: NICOTINE 21 MG/24 HR PATCH TD SCH (08:51)
[2017-03-19] MEDS: HYDROmorphONE/DILAUDID 1 MG/ML INJ IVP PRN ×2 (08:56→12:08)
[2017-03-19] MEDS: FLUTICASONE/SALMETER 250/50MCG DISKUS IH SCH ×2 (10:10→20:22)
[2017-03-19] MEDS: ERTAPENEM 1 GM VIAL IV SCH (10:16)
--- NOTE | 2017-03-19 13:45 | HOSPPROG ---
Hospitalist Progress Note Assessment/Plan: 51 y/o male s/p left 1-3, 5 toe amputations for necrosis. #Bilateral foot frostbite w gangrene -s/p Left toe/s amputation 1-4 -stable -on Invanz -pain managed with Dilaudid #Acute on chronic alcoholism with acute WD -patient has requested for beer to stop/ says he isn't drinking it and wants to abstain #pAfib: -restarted Diltiazem -He is not on AC given his noncompliance -He is on an Aspirin at home which will be temporarily held. 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 Objective: Vital Signs Temp Pulse Resp BP Pulse Ox 36.6 C 89 14 138/85 H 98 03/19/17 07:54 03/19/17 10:11 03/19/17 10:11 03/19/17 08:50 03/19/17 10:11 Laboratory Results 03/15/17 04:27 03/16/17 04:39 03/18/17 03/19/17 03/20/17 05:59 05:59 05:59 Intake Total 400 Balance 400 - Physical Exam Constitutional: no apparent distress Eyes: PERRL Ears, Nose, Mouth, Throat: hearing normal Respiratory: no respiratory distress Skin: warm Musculoskeletal: generalized weakness Neurologic: AAOx3 Psychiatric: interacting appropriately, not anxious ICD10 Worksheet Patient Problems: Problems Problem Status Onset Abdominal pain Acute Alcohol abuse Acute Alcohol intoxication Acute Alcohol withdrawal Acute Atrial fibrillation with RVR Acute Back pain Acute COPD (chronic obstructive pulmonary disease) Acute Cold exposure Acute Cold exposure Acute Dehydration Acute Facial laceration Acute Frostbite Acute Frostbite of both great toes Acute Laceration of eyebrow, left Acute Lactic acidosis Acute Lower extremity cellulitis Acute Multiple abrasions Acute Neck strain Acute Reversible airways disease Acute Seizure Acute Situational depression Acute Strain of mid-back Acute
--- NOTE | 2017-03-19 14:25 | WOCRNPDOC ---
WOCRN Advanced Assessment Note - Skin Integrity Problem, Advanced Assess Left Heel Dressing Type: Open to Air Other Dressing Type: heel boots in place Exudate Amount: None Wound Bed Color: Black, Purple, Red Wound Bed Constitution: Stable Eschar Wound Edges: Well Defined Site Measurement - Head-to-Toe Length X Width X Depth (cm): [id number] Skin Integrity Problem Comment: Patient with severe frostbite to left foot, now with stable eschar to left heel. Skin is dry and intact with only limited sensation per patient. Will order for betadyne BID. Plan is for patient to DC to SNF today. Wound care will round again on if patient does not DC.
--- NOTE | 2017-03-19 15:44 | PDIAF ---
- Diagnosis Diagnosis: huynh bite, s/p multiple L toe amputations Code Status: Full Code - Medication Management Discharge Medications: Medications to Continue on Transfer Fluticasone/Salmeter 250/50Mcg [Advair 250/50 (*)] 1 puffs IH BID 01/28/17 [ Last Taken 03/14/17 08:00] Lisinopril/Hctz 20/12.5MG [Zestoretic/Prinzide 20/12.5MG (*)] 1 ea PO DAILY [Last Taken 03/14/17 08:00] Aspirin EC [Aspirin EC 325 mg (*)] 325 mg PO DAILY #30 tab 03/05/17 [Last Taken 03/14/17 08:00] Amoxicillin/Clavulanate Pot [Augmentin 875 MG TAB (*)] 875 mg PO BID #20 tab [Last Taken 03/14/17 08:00] Hydrocodone/APAP 5/325 [[place] 5/325 (*)] 1 - 2 tab PO Q4H PRN #10 tab 03/09/17 [ Last Taken 03/14/17 10:00] Albuterol [Proventil Inhaler HFA (*)] 2 puffs IH Q4H PRN 03/14/17 [Last Taken 21:00] Phenytoin Sodium Extended [Dilantin (*)] 100 mg PO DAILY 03/14/17 [Last Taken ] clonazePAM [klonoPIN (*)] 1 mg PO BID PRN 03/14/17 [Last Taken Unknown] Discharge Medications: Refer to the Discharge Home Medication list for PRN reason. PICC Care - Routine: N/A - Orders Services needed: Registered Nurse, Physical Therapy, Occupational Therapy Diet Recommendation: no restrictions on diet Diet Texture: Regular Texture Diet Wound Care Instructions: Wound care: (heel). [place] all red and black areas of left heel with betadine swab twice per day. Patient to wear protective heel boots to left foot while in bed and up in chair. May remove to ambulate. Annabelle Everett RN, Wound Care Team. Additional wound care: dress suture line with vaseline or xeroform gauze, 4x4's, and kerlix daily or more often PRN saturation. May irrigate/clean with normal saline. Otherwise, keep dry. Activity: Ok to bear weight as tolerated on a flat foot with no "toe off." Activity/Weight Bearing Restrictions: Wound care: (heel). [place] all red and black areas of left heel with betadine swab twice per day. Patient to wear protective heel boots to left foot while in bed and up in chair. May remove to ambulate. Annabelle Everett RN, Wound Care Team. Additional wound care: dress suture line with vaseline or xeroform gauze, 4x4's, and kerlix daily or more often PRN saturation. May irrigate/clean with normal saline. Otherwise, keep dry. Activity: Ok to bear weight as tolerated on a flat foot with no "toe off. " - Follow Up Care Current Providers and Referrals: Mandei Howard [Primary Care Provider] - Finn Escobar MD [Medical Doctor] - follow up in 1 week
--- NOTE | 2017-03-19 16:50 | ASMTCMCOM ---
CM Note CM Note Notes: Annalisa pineda [facility] is still assessing pt and at the end of the day reports she will likely not know if they can accept until tomorrow. D/c orders were input today, orders and d/s med list sent to [facility] because they address [facility] questions about which oral meds prescribed for pain and wound care. Pt first choice is [facility]. Maureen Valenzuela referral also still pending. D/c plan of care: SNF when there is an accepting facility. Date Signed: 03/19/2017 04:50 PM Electronically Signed By:STUART Rodriguez
[2017-03-19] MEDS: clonazePAM 0.5 MG TAB PO PRN (20:27)
[2017-03-19 23:39] VITALS: O2SAT 95
[2017-03-20] MEDS: HYDROmorphONE/DILAUDID 4 MG TAB PO PRN ×5 (01:16→14:38)
[2017-03-20 08:18] VITALS: BP 104/68; TEMP 97.8
--- NOTE | 2017-03-20 08:23 | HOSPPROG ---
Hospitalist Progress Note Assessment/Plan: 51 y/o male s/p left 1-3, 5 toe amputations for necrosis. #Bilateral foot frostbite w gangrene -s/p Left toe/s amputation 1-4 -stable -on Invanz -pain managed with Dilaudid #Acute on chronic alcoholism with acute WD -patient has requested for beer to stop/ says he isn't drinking it and wants to abstain #pAfib: -restarted Diltiazem -He is not on AC given his noncompliance -He is on an Aspirin at home which will be temporarily held. -He appears to be in SR #anemia #Homelessness -SNF for now #DVT proph: per primary #Plan: dc today, explained to Anand that the narcotics would be weaned off over time. he knows he has issues with addiction. Subjective: anand is overall feeling well, left foot with some pain. Objective: Vital Signs Temp Pulse Resp BP Pulse Ox 36.6 C 89 14 104/68 95 03/20/17 08:00 03/20/17 08:00 03/20/17 08:00 03/20/17 08:00 03/20/17 08:00 Laboratory Results 03/15/17 04:27 03/16/17 04:39 03/19/17 03/20/17 03/21/17 05:59 05:59 05:59 Intake Total 400 700 Output Total 7 Balance 400 693 - Physical Exam Constitutional: no apparent distress, appears nourished Eyes: PERRL Ears, Nose, Mouth, Throat: hearing normal Respiratory: no respiratory distress Skin: warm, other (left foot in dressing) Musculoskeletal: generalized weakness Neurologic: AAOx3 Psychiatric: interacting appropriately ICD10 Worksheet Patient Problems: Problems Problem Status Onset Abdominal pain Acute Alcohol abuse Acute Alcohol intoxication Acute Alcohol withdrawal Acute Atrial fibrillation with RVR Acute Back pain Acute COPD (chronic obstructive pulmonary disease) Acute Cold exposure Acute Cold exposure Acute Dehydration Acute Facial laceration Acute Frostbite Acute Frostbite of both great toes Acute Laceration of eyebrow, left Acute Lactic acidosis Acute Lower extremity cellulitis Acute Multiple abrasions Acute Neck strain Acute Reversible airways disease Acute Seizure Acute Situational depression Acute Strain of mid-back Acute
[2017-03-20] MEDS: LISINOPRIL/HCTZ 20/12.5MG 1 EA TAB PO SCH (08:47)
[2017-03-20] MEDS: THIAMINE HCL 100 MG TAB PO SCH (08:48)
[2017-03-20] MEDS: FOLIC ACID 1 MG TAB PO SCH (08:48)
[2017-03-20] MEDS: PHENYTOIN SODIUM EXTENDED 100 MG CAP PO SCH (08:48)
[2017-03-20] MEDS: NICOTINE 21 MG/24 HR PATCH TD SCH (08:48)
[2017-03-20] MEDS: MULTIVITAMINS 1 EACH TAB PO SCH (08:48)
[2017-03-20] MEDS: ERTAPENEM 1 GM VIAL IV SCH (08:49)
[2017-03-20] MEDS: FLUTICASONE/SALMETER 250/50MCG DISKUS IH SCH (09:10)
[2017-03-20 09:13] VITALS: PULSE 93; RESP 16
--- NOTE | 2017-03-20 14:07 | ASMTCMCOM ---
CM Note CM Note Notes: Pt medically stable for d/c to [facility] where he was accepted this am. Orders sent in [employer]. W[place] van scheduled by [facility] for 15:00. Hard scripts sent w pt to SNF. Pt verbalizes he will d/c from [facility] to a hotel. Date Signed: 03/20/2017 02:06 PM Electronically Signed By:STUART Rodriguez
--- NOTE | 2017-03-20 16:23 | ASMTCMCOM ---
CM Note CM Note Notes: Pt medically stable for d/c to [place] [facility] where he was accepted this morning. Orders sent in [employer]. Wc van scheduled by [place] [facility] for 15:00. Hard scripts sent w pt to SNF. Pt verbalizes he will d/c from [place] to a hotel. Date Signed: 03/20/2017 04:22 PM Electronically Signed By:STUART Rodriguez
--- NOTE | 2017-03-20 16:35 | ASDISCHSUM ---
Discharge Information Plan Status:SNF Medically Cleared to Leave: Discharge Date:03/20/2017 02:51 PM CM D/C Disposition:Half-Way Facility ADT D/C Disposition:Half-Way Facility Projected Discharge Date:03/20/2017 11:00 AM Transportation at D/C:Wheelchair Van Discharge Delay Reason: Follow-Up Date:03/20/2017 11:00 AM Discharge Slot: Final Diagnosis: Placement Information Referral Type:*Group Home/SNF Referral ID:[id number] Provider Name:[facility]/ [employer] [address] [employer] Address 1:[address] Address 2: City:[place] Selection Factors: State:[place] Patient Contact Information Contact Name:SACHIN Relationship:Friend Address: Home Phone: Work Phone: City: [facility] Phone: [facility]/[employer] Code: Email: Financial Information Financial Class: Primary Plan Desc:MEDICARE INPATIENT Primary Plan Number:[id number] Secondary Plan Desc:MEDICAID [place] Secondary Plan Number:[id number] Assessment Information [facility] CM Progress Note CM Note CM Note Notes: 03/15/2017 Case Management Note Reviewed chart. Pt is well known to case management with frequent hospitalizations d/t ETOH use. Pt admitted for possible heel debridement. Case management d/c needs are unclear at this time. Will wait for PT and OT evals and those recommendations for d/c planning. Pt has been declined by area SNF rehabs in the last 30 days during prior hospitalizations. Pt [facility] to [facility]. Pt is well resourced in the community but historically has not shown up for scheduled appointments. Case Management d/c poc: TBD. Case Management to follow. Date Signed: 03/15/2017 09:41 AM Electronically Signed By:Miriam Headley RN [facility] CM Progress Note CM Note CM Note Notes: I spoke with multiple providers (surgery PA, hospitalist, RN) regarding discharge plans for this patient. PT has cleared him for "home," but patient lives on the streets and ambulating may be a challenge given his recent toe amputation. Patient is a difficult SNF placement d/t history of leaving hospital AMA and alcoholism. Nevertheless, I sent referrals to a number of facilities in the area. Elizabeth from [facility] visited with patient today and will check his benefits tomorrow. Dao from [place] is also looking at patient. Obviously, everyone is curious as to his plan after rehab. Patient claims that he has money and can stay in hotels. CM will continue to follow. Current CM discharge plan: TBD Date Signed: 03/18/2017 04:40 PM Electronically Signed By:Beronica Hand RN [facility] CM Progress Note CM Note CM Note Notes[facility] at the end of the day reports she will likely not know if they can accept until tomorrow. D/c orders were input today, orders and d/s med list sent to [place] because they address [place] questions about which oral meds prescribed for pain and wound care. Pt first choice is [place]. Maureen Valeznuela referral also still pending. D/c plan of care: SNF when there is an accepting facility. Date Signed: 03/19/2017 04:50 PM Electronically Signed By:STUART Rodriguez [facility] CM Progress Note CM Note CM Note Notes: Pt medically stable for d/c to [place] where he was accepted this am. Orders sent in [employer]. Wc van scheduled by [place] for 15:00. Hard scripts sent w pt to [facility]. Pt verbalizes he will d/c from [place] to a hotel. Date Signed: 03/20/2017 02:06 PM Electronically Signed By:STUART Rodriguez [facility] CM Progress Note CM Note CM Note Notes: Pt medically stable for d/c to [place] where he was accepted this morning. Orders sent in [employer]. W[place] van scheduled by [place] for 15:00. Hard scripts sent w pt to [facility]. Pt verbalizes he will d/c from [place] to a hotel. Date Signed: 03/20/2017 04:22 PM Electronically Signed By:STUART Rodriguez Intervention Information Intervention Type:*[place]TON-Signed Date of Service:03/15/2017 09:54 AM Patient Type:Observation Staff Member:Negrita Deleon Hours: Discipline: Severity: Comment: Intervention Type:*SUKHDEV-Signed Date of Service:03/19/2017 04:12 PM Patient Type:Inpatient Staff Member:Negrita Deleon Hours: Discipline: Severity: Comment:
== END 2017-03-20 14:51 | DRG 908 ==
LOC: F3N 15:22 → OBSVTOIN 03-15 13:54
PROVIDERS: ADMIT Surgery; ATTEND Surgery
PROC: 0Y6U0Z1 Detachment at Left 3rd Toe, High, Open Approach (ICD-10-PCS; principal; 2017-03-15 13:15)
PROC: 0Y6Q0Z1 Detachment at Left 1st Toe, High, Open Approach (ICD-10-PCS; principal; 2017-03-15 13:15)
PROC: 0Y6S0Z1 Detachment at Left 2nd Toe, High, Open Approach (ICD-10-PCS; principal; 2017-03-15 13:15)
DX: T34.822A Frostbite with tissue necrosis of left foot, initial encounter (principal); F10.239 Alcohol dependence with withdrawal, unspecified; I96 Gangrene, not elsewhere classified; I10 Essential (primary) hypertension; J44.9 Chronic obstructive pulmonary disease, unspecified; F17.200 Nicotine dependence, unspecified, uncomplicated; E78.5 Hyperlipidemia, unspecified; Z59.0 Homelessness; X31.XXXD Exposure to excessive natural cold, subsequent encounter
CPT/HCPCS: 97161-GP; 97165-GO; 97535-GO; G8978-GP-CI; G8979-GP-CI; G8980-GP-CI; G8987-GO-CI; G8988-GO-CI; J1100; J1170; J1335; J1885; J2060; J2250; J2405; J2704; J3010; J3411

== ENCOUNTER 2017-04-26 08:49 | Inpatient (IN) | payer OTHER, MEDICAID ==
[2017-04-26] MEDS ORDERED: ceFAZolin 2 GM/SWFI 2 GM/20 ML SYR IVP ONE (09:52)
[2017-04-26] MEDS ORDERED: LR 1,000 ML IV ONE (09:53)
--- NOTE | 2017-04-26 10:24 | PDHPUP ---
History & Physical Update H&P update statement: This history and physical update is based on an assessment of the patient which was completed after admission or registration (within 24 hours), but prior to the surgery/procedure. H&P update: H&P reviewed & patient examined, no change in patient's condition since H&P completed
[2017-04-26] MEDS ORDERED: fentaNYL 100 MCG/2 ML INJ IV PRN (11:52)
[2017-04-26] MEDS ORDERED: MIDAZOLAM 2 MG/2 ML VIAL IVP ONE (11:53)
--- NOTE | 2017-04-26 11:53 | PDANEPAE ---
ANE History of Present Illness L heel debridement ANE Past Medical History - Cardiovascular History Hx Hypertension: Yes Hx Arrhythmias: Yes Hx Chest Pain: No Hx Coronary Artery / Peripheral Vascular Disease: No Hx CHF / Valvular Disease: No Hx Palpitations: No - Pulmonary History Hx COPD: Yes Hx Asthma/Reactive Airway Disease: No Hx Recent Upper Respiratory Infection: Yes Hx Oxygen in Use at Home: No Hx Sleep Apnea: No Sleep Apnea Screening Result - Last Documented: Negative Pulmonary History Comment: Bronchitis and Pneumonia in May 2016. uses inhalers - Neurologic History Hx Cerebrovascular Accident: No Hx Seizures: Yes Hx Dementia: No Neurologic History Comment: etoh withdraw - Endocrine History Hx Diabetes: No - Renal History Hx Renal Disorders: No - Liver History Hx Hepatic Disorders: No - Neurological & Psychiatric Hx Hx Neurological and Psychiatric Disorders: Yes - Cancer History Hx Cancer: No - Congenital Disorder History Hx Congenital Disorders: No - GI History Hx Gastrointestinal Disorders: Yes Gastrointestinal History Comment: gastric bypass surgery - Other Health History Other Health History: none - Chronic Pain History Chronic Pain: No - Surgical History Prior Surgeries: Cholecystectomy 1992. gastric bypass 1999. 3 spine fusions L2 -S1 2000, 2013, 2016 ANE Review of Systems Review of systems is: negative Review of Systems: - Exercise capacity METS (RN): 4 METS ANE Patient History - Allergies Allergies/Adverse Reactions: gabapentin Allergy (Verified 03/10/17 22:44) bee stings Allergy (Severe, Uncoded 03/10/17 22:44) Anaphylaxis - Home Medications Home medications: home medication list seen and reviewed Home Medications: Albuterol [Proventil Inhaler HFA (*)] 2 puffs IH Q4H PRN 03/14/17 [Last Taken 23:55] clonazePAM [klonoPIN (*)] 1 mg PO BID@05,17 03/14/17 [Last Taken 04/25/17 23:55] Aspirin [Aspirin 325 mg (*)] 325 mg PO DAILY 04/22/17 [Last Taken 04/19/17] Fluticasone/Vilanterol [Breo Ellipta 100-25 Mcg INH] 1 each IH DAILY 04/22/17 [ Last Taken 04/25/17 07:00] HYDROmorphone HCL [Dilaudid 4 mg (*)] 4 mg PO Q4HRS 04/22/17 [Last Taken 03:00] Ibuprofen [Motrin (*)] 600 mg PO Q6HRS PRN 04/22/17 [Last Taken 04/19/17] - NPO status NPO Status: no food or drink >8 hours NPO Since - Liquids (Date): 04/25/17 NPO Since - Liquids (Time): 12:00 NPO Since - Solids (Date): 04/25/17 NPO Since - Solids (Time): 12:00 - Anes Hx Anes Hx: no prior problems - Smoking Hx Smoking Status: Heavy smoker - Family Anes Hx Family Anes Hx: none Family Hx Anesthesia Complications: none ANE Labs/Vital Signs - Vital Signs Blood Pressure: 144/90 Heart Rate: 85 Respiratory Rate: 12 O2 Sat (%): 94 Height: 195.58 cm Weight: 111.13 kg ANE Physical Exam - Airway Neck exam: FROM Mallampati Score: Class 1 Mouth exam: dentures - Pulmonary Pulmonary: no respiratory distress - Cardiovascular Cardiovascular: regular rate and rhythym - ASA Status ASA Status: III ANE Anesthesia Plan Anesthesia Plan: GA w LMA
[2017-04-26] MEDS ORDERED: BUPIVACAINE 0.25% 30 ML SDV ONE (12:30)
[2017-04-26] MEDS ORDERED: THROMBIN (BOVINE) 20,000 UNIT SPRAY TP ONE (12:30)
[2017-04-26] MEDS ORDERED: MINERAL OIL 10 ML VIAL ONE (12:31)
[2017-04-26] MEDS ORDERED: ONDANSETRON 4 MG/2 ML VIAL ONE (12:44)
[2017-04-26] MEDS ORDERED: PROPOFOL 200 MG/20 ML VIAL ONE (12:44)
[2017-04-26] MEDS ORDERED: LIDOCAINE 2% 100 MG/5 ML SYR ONE (12:44)
[2017-04-26] MEDS ORDERED: fentaNYL 100 MCG/2 ML INJ ONE ×4 (12:44→15:52)
[2017-04-26] MEDS ORDERED: DEXAMETHASONE 4 MG/ML VIAL ONE (12:44)
[2017-04-26] MEDS ORDERED: HYDROmorphONE/DILAUDID 2 MG/ML INJ ONE ×2 (13:05→15:10)
[2017-04-26] MEDS ORDERED: IBUPROFEN 200 MG TAB PO PRN (14:43)
[2017-04-26] MEDS ORDERED: ONDANSETRON 4 MG/2 ML VIAL IVP PRN ×2 (14:43→15:07)
[2017-04-26] MEDS ORDERED: ONDANSETRON DISINTEGRATING 4 MG TAB PO PRN (14:43)
[2017-04-26] MEDS ORDERED: ACETAMINOPHEN 325 MG TAB PO PRN (14:43)
[2017-04-26] MEDS ORDERED: HYDROmorphONE/DILAUDID 2 MG TAB PO PRN (14:43)
--- NOTE | 2017-04-26 14:43 | POSTOPPROG ---
Post Op Note Date of Operation: 04/26/17 Surgeon: Finn Escobar Evaporator Operator: Josué Anesthesiologist: Cecy Anesthesia: GET(General Endotracheal) Pre-op Diagnosis: Pressure ulcer left heel Post-op Diagnosis: same Indication: same Procedure: Left heel debridement, FTSG, wound vac placement, fourth toe amputation Inf/Abcess present in the surg proc area at time of surgery?: No EBL: 50-100 Drains: Wound Vac
[2017-04-26] MEDS ORDERED: NS 1,000 ML IV SCH (14:45)
[2017-04-26] MEDS ORDERED: ALBUTEROL 60 PUFFS/8 GM MDI IH PRN (14:49)
[2017-04-26] MEDS ORDERED: IBUPROFEN 600 MG TAB PO PRN (14:49)
--- NOTE | 2017-04-26 14:50 | POSTANESTH ---
Post Anesthetic Evaluation Cardiovascular Status: Similar to Pre-Op Cond Respiratory Status: Similar to Pre-op Cond. Level of Consciousness/Mental Status: Can Participate in Eval, Moderately Sleepy Pain Control: Adequate, Prn Tx Ordered Nausea/Vomiting Control: Adequate, Prn Tx Ordered Complications Possibly Related to Anesthesia: None Noted
[2017-04-26] MEDS: fentaNYL 100 MCG/2 ML INJ IVP PRN ×3 (15:00→15:53)
[2017-04-26] MEDS ORDERED: ALBUTEROL 3 ML DEYVIAL IH PRN (15:07)
[2017-04-26] MEDS ORDERED: NALOXONE HCL 0.4 MG/ML INJ IVP PRN (15:07)
[2017-04-26] MEDS ORDERED: ACETAMINOPHEN 500 MG TAB PO PRN (15:07)
[2017-04-26] MEDS ORDERED: OXYCODONE/APAP 5/325 TAB PO PRN (15:07)
[2017-04-26] MEDS ORDERED: DEXAMETHASONE 4 MG/ML VIAL IVP PRN (15:07)
[2017-04-26] MEDS ORDERED: MEPERIDINE 25 MG/ML SYR IVP PRN (15:07)
[2017-04-26] MEDS ORDERED: LABETALOL HCL 5 MG/ML 20 ML MDV IVP PRN (15:07)
[2017-04-26] MEDS ORDERED: HYDROCODONE/APAP 5/325 TAB PO PRN (15:07)
[2017-04-26] MEDS: HYDROmorphONE/DILAUDID 2 MG/ML INJ IVP PRN ×4 (15:14→15:53)
--- NOTE | 2017-04-26 17:09 | PDMN ---
Medical Necessity Medical necessity: Pt meets IP criteria per PA; est los >2 mn s/p L heel debridement, FTSG & 4th toe amputation w/wound vac placement r/t frostbite/ gangrene; admit for further monitoring, IVFs, Wound Care consult & therapies; hx homelessness, COPD, falls, htn, lung mass; per H&P & order 04/26/17
[2017-04-26] MEDS: clonazePAM 1 MG TAB PO SCH (17:26)
[2017-04-26] MEDS ORDERED: HYDROmorphONE/DILAUDID 4 MG TAB PO SCH (18:00)
[2017-04-26] MEDS: HYDROmorphone HCL/NS 0.5 MG/ML SYR IVP PRN ×2 (19:15→23:34)
[2017-04-26] MEDS: HYDROCODONE/APAP 5/325 TAB PO PRN (20:21)
[2017-04-26] MEDS: HYDROmorphONE/DILAUDID 4 MG TAB PO PRN (21:21)
[2017-04-27] MEDS: HYDROmorphONE/DILAUDID 4 MG TAB PO PRN ×6 (02:53→23:43)
[2017-04-27] MEDS: HYDROmorphone HCL/NS 0.5 MG/ML SYR IVP PRN ×5 (04:41→21:53)
[2017-04-27] MEDS: clonazePAM 1 MG TAB PO SCH ×2 (04:42→17:34)
[2017-04-27] MEDS: ASPIRIN 325 MG TAB PO SCH (07:54)
[2017-04-27] MEDS: ENOXAPARIN 40 MG/0.4 ML SYR SC SCH (07:55)
[2017-04-27] MEDS: Fluticasone/Vilanterol [Breo Ellipta 100-25 Mcg Inh] 1 EACH IH SCH (10:02)
[2017-04-27] MEDS: HYDROCODONE/APAP 5/325 TAB PO PRN ×4 (11:43→23:43)
--- NOTE | 2017-04-27 11:47 | ASMTCMCOM ---
CM Note CM Note Notes: Pt. is a 52-year-old man who is now admitted for a L heel debridement, amputation of 4th toe, and has a wound vac placed. PT and OT ordered. Pt. d/c'ed from [facility] to [facility] on 03/20/17 per last admission notes. Unclear if Pt. is still staying at [facility]. CM to confirm on weekday. CM to follow. Date Signed: 04/27/2017 11:46 AM Electronically Signed By:Melisa Leonard LCSW
--- NOTE | 2017-04-27 14:40 | GOP ---
[f rep st] OPERATIVE REPORT DATE OF OPERATION: 04/26/2017 SURGEON: Finn Escobar MD FISHERIES DIVER: Ni Msoes NP. ANESTHESIA: Preston Sam M.D. PREOPERATIVE DIAGNOSIS: Frostbite injury to the left leg. POSTOPERATIVE DIAGNOSIS: Frostbite injury to the left leg. PROCEDURE PERFORMED: 1. 4th toe proximal phalangeal amputation. 2. Left heel debridement with full-thickness skin graft placement and closure of the skin graft site . FINDINGS: DESCRIPTION OF PROCEDURE: The patient was taken to the operating room where he received satisfactory general endotracheal anesthesia by Dr. Sam. He was placed in the supine position, prepped and draped in the usual sterile fashion. A fishmouth type incision was made at the base of the 4th toe a nd dissection extended down to the proximal phalanx which was then divided with a bone cutter. Hemos tasis was assured. The bone was smoothed off with a rasp and closed with interrupted 4-0 Prolene mat tress sutures. The wound was infiltrated with 0.5%Marcaine. Attention was turned to the left heel, which was sharply debrided for all necrotic tissue. Good viab le bleeding tissue present. Hemostasis was controlled with electrocautery and the wound was infiltra radha with 0.5% Marcaine. A template was made of the defect and the skin in the left groin was then ex cised in an elliptical manner. The skin was defatted and then transposed to the heel to cover it wit h full-thickness skin graft. However, the skin seemed to shrink and would not stretch to cover the h eel and some additional skin was taken. This was placed over the heel in a 2-piece system. It was a nchored in place with skin russ. It was then covered with a wound VAC, with securing the grafts i n place. The donor site was closed with a running 3-0 Vicryl suture for the subcutaneous tissue and skin russ for the skin. That wound was further infiltrated with 0.5% Marcaine. /[id number]/MODL
--- NOTE | 2017-04-27 15:12 | SOAPPROG ---
SOAP Progress Note Assessment/Plan: Assessment: s/p amputation L toe and stsg Doing well WV to suction S: feeling well O: Faint odor in room WV to suction Incisions on foot cdi scab on forefoot No evidence of infection Plan: 04/27/17 15:11 Objective: Vital Signs Temp Pulse Resp BP Pulse Ox 36.6 C 73 18 108/64 98 04/27/17 14:42 04/27/17 14:42 04/27/17 14:42 04/27/17 14:42 04/27/17 14:42 04/26/17 04/27/17 04/28/17 05:59 05:59 05:59 Intake Total 1870 Output Total 1200 345 Balance 670 -345 ICD10 Worksheet Patient Problems: Problems Problem Status Onset Abdominal pain Acute Alcohol abuse Acute Alcohol intoxication Acute Alcohol withdrawal Acute Atrial fibrillation with RVR Acute Back pain Acute COPD (chronic obstructive pulmonary disease) Acute Cold exposure Acute Cold exposure Acute Dehydration Acute Facial laceration Acute Frostbite Acute Frostbite of both great toes Acute Laceration of eyebrow, left Acute Lactic acidosis Acute Lower extremity cellulitis Acute Multiple abrasions Acute Neck strain Acute Reversible airways disease Acute Seizure Acute Situational depression Acute Strain of mid-back Acute
[2017-04-28] MEDS: HYDROmorphONE/DILAUDID 4 MG TAB PO PRN ×4 (04:45→19:41)
[2017-04-28] MEDS: HYDROCODONE/APAP 5/325 TAB PO PRN (04:45)
[2017-04-28] MEDS: clonazePAM 1 MG TAB PO SCH ×2 (04:46→17:38)
[2017-04-28] MEDS: HYDROmorphone HCL/NS 0.5 MG/ML SYR IVP PRN ×3 (07:19→20:49)
[2017-04-28] MEDS: Fluticasone/Vilanterol [Breo Ellipta 100-25 Mcg Inh] 1 EACH IH SCH (08:01)
[2017-04-28] MEDS: ENOXAPARIN 40 MG/0.4 ML SYR SC SCH (08:39)
[2017-04-28] MEDS: ASPIRIN 325 MG TAB PO SCH (08:47)
[2017-04-28] MEDS: OXYCODONE/APAP 5/325 TAB PO PRN ×2 (10:48→17:38)
--- NOTE | 2017-04-28 12:56 | SOAPPROG ---
SOAP Progress Note Assessment/Plan: Assessment: s/p amputation L toe and stsg Doing well [place] to suction he is concerned about why he is still here and not discharged to [facility]. Explained that the graft is tenuous. Unsure if [facility] has [employer] vac where it could be exchanged prior to discharge. Vac needs to be to suction without interruption. NWB LLE discontinued [place] and changed to Percocet S: feeling well O: No odor in room [place] to suction Incisions on foot cdi scab over previous amputation of l second toe No evidence of infection Plan: 04/27/17 15:11 04/28/17 12:53 Objective: Vital Signs Temp Pulse Resp BP Pulse Ox 36.5 C 76 18 111/63 100 04/28/17 10:42 04/28/17 10:42 04/28/17 10:42 04/28/17 10:42 04/28/17 10:42 04/27/17 04/28/17 04/29/17 05:59 05:59 05:59 Intake Total 1870 800 Output Total 1200 345 Balance 670 115 ICD10 Worksheet Patient Problems: Problems Problem Status Onset Abdominal pain Acute Alcohol abuse Acute Alcohol intoxication Acute Alcohol withdrawal Acute Atrial fibrillation with RVR Acute Back pain Acute COPD (chronic obstructive pulmonary disease) Acute Cold exposure Acute Cold exposure Acute Dehydration Acute Facial laceration Acute Frostbite Acute Frostbite of both great toes Acute Laceration of eyebrow, left Acute Lactic acidosis Acute Lower extremity cellulitis Acute Multiple abrasions Acute Neck strain Acute Reversible airways disease Acute Seizure Acute Situational depression Acute Strain of mid-back Acute
[2017-04-29] MEDS: OXYCODONE/APAP 5/325 TAB PO PRN ×5 (00:46→18:31)
[2017-04-29] MEDS: HYDROmorphONE/DILAUDID 4 MG TAB PO PRN ×5 (01:51→19:38)
[2017-04-29] MEDS: HYDROmorphone HCL/NS 0.5 MG/ML SYR IVP PRN ×4 (03:03→20:37)
[2017-04-29] MEDS: clonazePAM 1 MG TAB PO SCH ×2 (05:51→16:49)
[2017-04-29] MEDS: Fluticasone/Vilanterol [Breo Ellipta 100-25 Mcg Inh] 1 EACH IH SCH (07:16)
[2017-04-29] MEDS: ASPIRIN 325 MG TAB PO SCH (07:49)
[2017-04-29] MEDS: ENOXAPARIN 40 MG/0.4 ML SYR SC SCH (07:50)
--- NOTE | 2017-04-29 10:51 | SOAPPROG ---
SOAP Progress Note Assessment/Plan: Assessment: s/p amputation L toe and FTSG 04/26 S: Doing well, would like to be discharged back to [facility]. Pain well controlled. Is using walker to ambulate without placing weight on left heel O: Alert Afebrile RLE: toe amputation site with scab. No signs of infection LLE: Wound vac to suction. About 50ml out since placement on Saturday. No signs of infection Plan: Discussed with Dr. Escobar. Keep wound vac on L heel for 1 week without changing sponge. Continue to avoid weight bearing on LLE. Pt can go back to [facility] as long as they have the capability to provide continuous suction wound vac. 04/29/17 10:46 Objective: Vital Signs Temp Pulse Resp BP Pulse Ox 36.3 C 67 12 104/58 L 91 L 04/29/17 07:40 04/29/17 07:40 04/29/17 07:40 04/29/17 07:40 04/29/17 07:40 04/28/17 04/29/17 04/30/17 05:59 05:59 05:59 Intake Total 800 1550 Output Total 345 800 Balance 455 750 ICD10 Worksheet Patient Problems: Problems Problem Status Onset Abdominal pain Acute Alcohol abuse Acute Alcohol intoxication Acute Alcohol withdrawal Acute Atrial fibrillation with RVR Acute Back pain Acute COPD (chronic obstructive pulmonary disease) Acute Cold exposure Acute Cold exposure Acute Dehydration Acute Facial laceration Acute Frostbite Acute Frostbite of both great toes Acute Laceration of eyebrow, left Acute Lactic acidosis Acute Lower extremity cellulitis Acute Multiple abrasions Acute Neck strain Acute Reversible airways disease Acute Seizure Acute Situational depression Acute Strain of mid-back Acute
--- NOTE | 2017-04-29 11:12 | ASMTCMCOM ---
CM Note CM Note Notes: Spoke with Jessica, who has taken Sharri's place temporarily at [facility]. Jessica states the patient has been with them and he is welcome to return. Spoke with patient who is wanting to return to [facility] as well. Jonathan states the mentioned to him that the wound vac he is currently using is the one the wants him to use. We will need to make sure we coordinate this with [facility] and whether or not they can get the same model for his use there. CM will follow. Date Signed: 04/29/2017 11:11 AM Electronically Signed By:Makenzie Greenfield LCSW
--- NOTE | 2017-04-29 13:31 | ASMTLACE ---
MARTHA Acuity / Level of Answers: Yes Care: Did the patient have an inpatient admission? Comorbidities - select Answers: Chronic pulmonary disease all that apply Opioid dependence / Chronic pain Other Notes: HTN, Seizure disorder # of Emergency department Answers: 12+ visits in the last 6 months Social determinants Answers: History of substance abuse (ETOH, street drugs, prescription drugs, etc.) Homelessness (street, correction) Mental health diagnosis (anxiety, depression, pers onality disorders, etc.) Score: 25 Date Signed: 04/29/2017 01:30 PM Electronically Signed By:Negrita Deleon
--- NOTE | 2017-04-29 15:59 | ASMTCMCOM ---
CM Note CM Note Notes: Spoke with MEDICAL FACILITIES SECTION DIRECTOR regarding pt's dc back to [facility] with wound vac; details discussed. Alerted Jessica, at [facility]; paperwork faxed; confirmed received. Spoke with Jennifer ([phone]) AMNA at [facility]; wound vac details discussed. Jennifer ordering wound vac today. Jennifer or Jessica to alert CM when vac authorization is obtained; possibly tomorrow or Saturday. Anticipate dc once vac is authorized & available at [facility]. CM will continue to follow. Date Signed: 04/29/2017 03:57 PM Electronically Signed By:Almaz Wise RN
[2017-04-30] MEDS: OXYCODONE/APAP 5/325 TAB PO PRN ×4 (01:51→17:11)
[2017-04-30] MEDS: HYDROmorphONE/DILAUDID 4 MG TAB PO PRN ×5 (03:30→20:10)
[2017-04-30] MEDS: HYDROmorphone HCL/NS 0.5 MG/ML SYR IVP PRN ×5 (04:34→21:30)
[2017-04-30] MEDS: clonazePAM 1 MG TAB PO SCH ×2 (04:36→16:39)
[2017-04-30] MEDS: ASPIRIN 325 MG TAB PO SCH (07:34)
[2017-04-30] MEDS: ENOXAPARIN 40 MG/0.4 ML SYR SC SCH (07:35)
[2017-04-30] MEDS: Fluticasone/Vilanterol [Breo Ellipta 100-25 Mcg Inh] 1 EACH IH SCH (07:39)
--- NOTE | 2017-04-30 13:39 | SOAPPROG ---
SOAP Progress Note Assessment/Plan: Assessment/Plan: 52 U M homeless, hx EtOH, s/p amputation L toe and FTSG 04/26. Vac to good suction. Need to leave vac to continuous suction with KCI wound vac x 7 days for protection of graft. D/w'ed case management. Mario reportedly in process of ordering KCI vac. Loss of suction could interrupt graft and cause graft failure. No weight bearing on heel at graft. 04/30/17 13:36 Objective: Vital Signs Temp Pulse Resp BP Pulse Ox 36.6 C 71 16 118/71 92 04/30/17 11:47 04/30/17 11:47 04/30/17 11:47 04/30/17 11:47 04/30/17 11:47 04/29/17 04/30/17 05/01/17 05:59 05:59 05:59 Intake Total 1550 2330 750 Output Total 800 1100 1300 Balance 750 1230 -550 ICD10 Worksheet Patient Problems: Problems Problem Status Onset Abdominal pain Acute Alcohol abuse Acute Alcohol intoxication Acute Alcohol withdrawal Acute Atrial fibrillation with RVR Acute Back pain Acute COPD (chronic obstructive pulmonary disease) Acute Cold exposure Acute Cold exposure Acute Dehydration Acute Facial laceration Acute Frostbite Acute Frostbite of both great toes Acute Laceration of eyebrow, left Acute Lactic acidosis Acute Lower extremity cellulitis Acute Multiple abrasions Acute Neck strain Acute Reversible airways disease Acute Seizure Acute Situational depression Acute Strain of mid-back Acute
[2017-05-01] MEDS: HYDROmorphONE/DILAUDID 4 MG TAB PO PRN ×6 (00:37→23:40)
[2017-05-01] MEDS: OXYCODONE/APAP 5/325 TAB PO PRN ×5 (04:45→21:58)
[2017-05-01] MEDS: clonazePAM 1 MG TAB PO SCH ×2 (04:46→17:14)
[2017-05-01] MEDS: ASPIRIN 325 MG TAB PO SCH (08:53)
[2017-05-01] MEDS: Fluticasone/Vilanterol [Breo Ellipta 100-25 Mcg Inh] 1 EACH IH SCH (09:02)
[2017-05-01] MEDS: ENOXAPARIN 40 MG/0.4 ML SYR SC SCH (10:18)
--- NOTE | 2017-05-01 11:43 | SOAPPROG ---
SOAP Progress Note Assessment/Plan: Assessment/Plan: 52 U M homeless, hx EtOH, s/p amputation L toe and FTSG 04/26. No real change overnight. Plan for vac d/c or Sat. Removed donor site dressing--may leave open to air. Will eventually need staple removal. Vac to good suction. Need to leave vac to continuous suction with KCI wound vac x 7 days for protection of graft. D/w'ed case management. Mario reportedly in process of ordering KCI vac. Loss of suction could interrupt graft and cause graft failure. No weight bearing on heel at graft. Seen and examined with Dr. Escobar. 05/01/17 11:40 Objective: Vital Signs Temp Pulse Resp BP Pulse Ox 36.6 C 74 12 132/80 H 94 05/01/17 07:21 05/01/17 07:21 05/01/17 07:21 05/01/17 07:21 05/01/17 07:21 04/30/17 05/01/17 05/02/17 05:59 05:59 05:59 Intake Total 2330 2090 Output Total 1100 2250 10 Balance 1230 -160 -10 ICD10 Worksheet Patient Problems: Problems Problem Status Onset Abdominal pain Acute Alcohol abuse Acute Alcohol intoxication Acute Alcohol withdrawal Acute Atrial fibrillation with RVR Acute Back pain Acute COPD (chronic obstructive pulmonary disease) Acute Cold exposure Acute Cold exposure Acute Dehydration Acute Facial laceration Acute Frostbite Acute Frostbite of both great toes Acute Laceration of eyebrow, left Acute Lactic acidosis Acute Lower extremity cellulitis Acute Multiple abrasions Acute Neck strain Acute Reversible airways disease Acute Seizure Acute Situational depression Acute Strain of mid-back Acute
--- NOTE | 2017-05-01 16:09 | ASMTCMCOM ---
JALEEL Note CM Note Notes: Spoke w/Jessica at [facility], they anticipate getting wound vac for patient tomorrow. She will call CM tomorrow to confirm. DC Plan: [facility] Date Signed: 05/01/2017 04:08 PM Electronically Signed By:Rody Meadows RN
[2017-05-02] MEDS: OXYCODONE/APAP 5/325 TAB PO PRN ×4 (02:59→18:38)
[2017-05-02 05:52] VITALS: RESP 18
[2017-05-02] MEDS: HYDROmorphONE/DILAUDID 4 MG TAB PO PRN ×4 (05:59→20:40)
[2017-05-02] MEDS: clonazePAM 1 MG TAB PO SCH ×2 (05:59→16:57)
[2017-05-02] MEDS: Fluticasone/Vilanterol [Breo Ellipta 100-25 Mcg Inh] 1 EACH IH SCH (08:00)
[2017-05-02] MEDS: ENOXAPARIN 40 MG/0.4 ML SYR SC SCH (08:54)
[2017-05-02] MEDS: ASPIRIN 325 MG TAB PO SCH (08:55)
--- NOTE | 2017-05-02 14:20 | WOCRNPDOC ---
WOCRN Advanced Assessment Note - Skin Integrity Problem, Advanced Assess Left Heel Surgical Wound/Incision Closure Description: [place] (loose/not intact around margins of wound) Exudate Amount: Minimal Integumentary Issue Intervention: Dressing Applied Madhavi Wound Tissue: Macerated Madhavi Wound Swelling: Mild Site Odor: Very Strong Skin Integrity Problem Comment: Request from nursing to evaluate vac dressing on patient's L heel. Dressing was not intact along medial margin, and there was an intensely foul odor emanating from the wound. Maceration evident in periwound tissues. Per opticianry teacher Juliann, trapped exudate noted under the drape along the medial margin where the dressing was coming off. Peeled back remaining vac dressing, and noted loosening russ all along wound margin, especially where the skin was macerated. Full-thickness graft had two holes medially, and entire graft was slack w/ no adherence to underlying wound bed. Site flushed copiously w/ saline, and wet to dry dressing applied. This author checked the NPWT device and did not find any indication of leak noted in the either the therapy or alarm histories. opticianry teacher Juliann notfied Dr. Escobar.
--- NOTE | 2017-05-02 18:11 | SOAPPROG ---
SOAP Progress Note Assessment/Plan: Assessment: Left heel a skin graft pretty much 100% failure/area debrided Will revert back to wet to dry dressings and eventual wound VAC to try to get a better receptive bed for skin graft However he still has the risk of breakdown of his skin graft because of the neuropathy and being over his heel and he may end up with a BK amputation Plan: Back to SNF in follow-up in the office in 2 weeks with local wound care 05/02/17 18:09 Objective: Vital Signs Temp Pulse Resp BP Pulse Ox 36.5 C 72 18 119/73 95 05/02/17 15:21 05/02/17 15:21 05/02/17 15:21 05/02/17 15:21 05/02/17 15:21 05/01/17 05/02/17 05/03/17 05:59 05:59 05:59 Intake Total 2089 1790 1600 Output Total 2250 2034 1050 Balance -160 -245 550 ICD10 Worksheet Patient Problems: Problems Problem Status Onset Abdominal pain Acute Alcohol abuse Acute Alcohol intoxication Acute Alcohol withdrawal Acute Atrial fibrillation with RVR Acute Back pain Acute COPD (chronic obstructive pulmonary disease) Acute Cold exposure Acute Cold exposure Acute Dehydration Acute Facial laceration Acute Frostbite Acute Frostbite of both great toes Acute Laceration of eyebrow, left Acute Lactic acidosis Acute Lower extremity cellulitis Acute Multiple abrasions Acute Neck strain Acute Reversible airways disease Acute Seizure Acute Situational depression Acute Strain of mid-back Acute
[2017-05-03] MEDS: OXYCODONE/APAP 5/325 TAB PO PRN ×3 (00:13→11:33)
[2017-05-03] MEDS: HYDROmorphONE/DILAUDID 4 MG TAB PO PRN ×2 (03:49→08:31)
[2017-05-03] MEDS: clonazePAM 1 MG TAB PO SCH (04:00)
--- NOTE | 2017-05-03 07:17 | PDIAF ---
- Diagnosis Code Status: Full Code - Medication Management Discharge Medications: Medications to Continue on Transfer Albuterol [Proventil Inhaler HFA (*)] 2 puffs IH Q4H PRN 03/14/17 [Last Taken 23:55] clonazePAM [klonoPIN (*)] 1 mg PO BID@05,17 03/14/17 [Last Taken 04/25/17 23:55] Multivitamins [Multivitamin (*)] 1 each PO DAILY tab 03/20/17 [Last Taken 04/19] Aspirin [Aspirin 325 mg (*)] 325 mg PO DAILY 04/22/17 [Last Taken 04/19/17] Fluticasone/Vilanterol [Breo Ellipta 100-25 Mcg INH] 1 each IH DAILY 04/22/17 [ Last Taken 04/25/17 07:00] HYDROmorphone HCL [Dilaudid 4 mg (*)] 4 mg PO Q4HRS 04/22/17 [Last Taken 03:00] Ibuprofen [Motrin (*)] 600 mg PO Q6HRS PRN 04/22/17 [Last Taken 04/19/17] Discharge Medications: Refer to the Discharge Home Medication list for PRN reason. PICC Care - Routine: N/A - Orders Services needed: Registered Nurse, Physical Therapy, Occupational Therapy Isolation Type: None Diet Recommendation: no restrictions on diet Diet Texture: Regular Texture Diet Weigh Patient: weekly [place]: No Wound Care Instructions: Left heel needs a wound vac with continuous suction. Wound vac changes every 3 days. Activity/Weight Bearing Restrictions: Ok to bear weight. - Follow Up Care Current Providers and Referrals: Mandie Howard [Primary Care Provider] - Finn Escobar MD [Medical Doctor] - follow up in 2 weeks
[2017-05-03 07:24] VITALS: BP 123/78; PULSE 72; TEMP 97.5; O2SAT 95
[2017-05-03] MEDS: ENOXAPARIN 40 MG/0.4 ML SYR SC SCH (08:11)
[2017-05-03] MEDS: ASPIRIN 325 MG TAB PO SCH (08:11)
[2017-05-03] MEDS: Fluticasone/Vilanterol [Breo Ellipta 100-25 Mcg Inh] 1 EACH IH SCH (08:51)
--- NOTE | 2017-05-03 09:59 | ASMTCMCOM ---
CM Note CM Note Notes: Per MD, pt had a failed skin graft. He will continue with wet to dry dressings until he gets to [facility] and then they will apply a wound vac. Jessica at [facility] asks that we send pt with supplies (foam/dressings) and they will order more upon pt's arrival. DC Plan: [facility] Date Signed: 05/03/2017 09:58 AM Electronically Signed By:Rody Meadows RN
--- NOTE | 2017-05-03 17:56 | ASDISCHSUM ---
Discharge Information Plan Status:SNF Medically Cleared to Leave: Discharge Date:05/03/2017 01:23 PM D/C Disposition:Shelter Facility ADT D/C Disposition:Shelter Facility Projected Discharge Date:05/03/2017 11:00 AM Transportation at D/C:Wheelchair Van Discharge Delay Reason: Follow-Up Date:05/03/2017 11:00 AM Discharge Slot: Final Diagnosis: Placement Information Referral Type:*[facility]/SNF Referral ID:[id number] Provider Name:[facility]/ [facility] Address 1:[address] Address 2: City:[place] Selection Factors: State:[place] Patient Contact Information Contact Name:PALOMO Relationship:Friend Address: Home Phone: Work Phone: City: [facility] Phone: [facility] Code: Email: Financial Information Financial Class:Medicare Primary Plan Desc:MEDICARE INPATIENT Primary Plan Number:[id number] Secondary Plan Desc:[place] Secondary Plan Number:[id number] Assessment Information [facility] CM Progress Note CM Note CM Note Notes: Pt. is a 52-year-old man who is now admitted for a L heel debridement, amputation of 4th toe, and has a wound vac placed. PT and OT ordered. Pt. d/c'ed from [facility] to [facility] on 03/20/17 per last admission notes. Unclear if Pt. is still staying at [facility]. CM to confirm on weekday. CM to follow. Date Signed: 04/27/2017 11:46 AM Electronically Signed By:Melisa Leonard LCSW [facility] CM Progress Note CM Note CM Note Notes: Spoke with Jessica, who has taken Sharri's place temporarily at [facility]. Jessica states the patient has been with them and he is welcome to return. Spoke with patient who is wanting to return to [facility] as well. Jonathan states the mentioned to him that the wound vac he is currently using is the one the wants him to use. We will need to make sure we coordinate this with [facility] and whether or not they can get the same model for his use there. CM will follow. Date Signed: 04/29/2017 11:11 AM Electronically Signed By:Makenzie Greenfield LCSW [facility] Acuity / Level of Answers: Yes Care: Did the patient have an inpatient admission? Comorbidities - select Answers: Chronic pulmonary disease all that apply Opioid dependence / Chronic pain Other Notes: HTN, Seizure disorder # of Emergency department Answers: 12+ visits in the last 6 months Social determinants Answers: History of substance abuse (ETOH, street drugs, prescription drugs, etc.) Homelessness (street, retirement) Mental health diagnosis (anxiety, depression, pers onality disorders, etc.) Score: 25 Date Signed: 04/29/2017 01:30 PM Electronically Signed By:Negrita Deleon [facility] Progress Note CM Note CM Note Notes: Spoke with PROJECT OFFICER regarding pt's dc back to [facility] with wound vac; details discussed. Alerted Jessica, at [facility]; paperwork faxed; confirmed received. Spoke with Jennifer Hoffman ([phone]) AMNA at [facility]; wound vac details discussed. Jennifer ordering wound vac today. Jennifer or Jessica to alert CM when vac authorization is obtained; possibly tomorrow or Saturday. Anticipate dc once vac is authorized & available at [facility]. CM will continue to follow. Date Signed: 04/29/2017 03:57 PM Electronically Signed By:Almaz Wise RN [facility] Progress Note CM Note CM Note Notes: Spoke w/Jessica at [facility], they anticipate getting wound vac for patient tomorrow. She will call CM tomorrow to confirm. DC Plan: [facility] Signed: 05/01/2017 04:08 PM Electronically Signed By:Rody Meadows RN [facility] Progress Note CM Note CM Note Notes: Per MD, pt had a failed skin graft. He will continue with wet to dry dressings until he gets to [facility] and then they will apply a wound vac. Jessica at [facility] asks that we send pt with supplies (foam/dressings) and they will order more upon pt's arrival. [facility] Signed: 05/03/2017 09:58 AM Electronically Signed By:Rody Meadows RN Intervention Information Intervention Type:*IM-Signed Date of Service:05/03/2017 10:09 AM Patient Type:Inpatient Staff Member:Negrita Deleon Hours: Discipline: Severity: Comment:
--- NOTE | 2017-05-08 14:58 | GDS ---
[f rep st] DISCHARGE SUMMARY DISCHARGE DIAGNOSES: 1. Frostbite of bilateral feet. 2. Lower extremity cellulitis. 3. Full-thickness ulcer to left heel. OTHER PERTINENT MEDICAL HISTORY: Includes alcoholism, ADHD, chronic back pain, COPD, hypertension, o pioid dependence. PROCEDURES PERFORMED: 1. 4th toe proximal phalangeal amputation. 2. Left heel debridement with full-thickness skin graft placement and closure of the skin graft site with wound vacuum assisted closure placement. INTRAOPERATIVE FINDINGS: Included good viable bleeding tissue in the left heel. CONSULTATIONS: Wound care nurse, Roro Schreiber. SPECIAL TESTS: None. HOSPITAL COURSE: The patient is a 52-year-old male who was admitted to the hospital to undergo debri fozia of his left heel with full-thickness skin graft. He had previously been admitted to the [facility] for frostbite of toes 1-5 on his left foot. Toes 1-3, 5 were amputated in previous hospital stay . His hospital course was unremarkable. His pain was controlled with oral pain medications. His wo und VAC stayed on for 5 days without being changed after his full-thickness skin graft was placed to his left heel. On day 7 we got a call saying that the wound VAC had "popped off." Upon assessment, it was clear that the full-thickness skin graft had failed. It was malodorous and not attached at al l to his left heel, at which point we recommended wet-to-dry dressing with daily dressing changes. P er patient' request, he was discharged in stable condition to [facility] for further care, and asked to follow up in our office in 2 weeks. MEDICATIONS: Please MAR for accurate medication list. /[id number]/MODL
== END 2017-05-03 13:23 | DRG 580 ==
LOC: F3N 08:49 → OBSVTOIN 14:48 → F3E 15:42
PROVIDERS: ADMIT Surgery; ATTEND Surgery
PROC: 0Y6W0Z1 Detachment at Left 4th Toe, High, Open Approach (ICD-10-PCS; principal; 2017-04-26 10:45)
PROC: 0JBC3ZZ Excision of Pelvic Region Subcutaneous Tissue and Fascia, Percutaneous Approach (ICD-10-PCS; principal; 2017-04-26 10:45)
PROC: 0JU Subcutaneous Tissue and Fascia, Supplement (ICD-10-PCS; principal; 2017-04-26 10:45)
DX: L89.629 Pressure ulcer of left heel, unspecified stage (principal); T33.822A Superficial frostbite of left foot, initial encounter; Z59.0 Homelessness; J44.9 Chronic obstructive pulmonary disease, unspecified; I10 Essential (primary) hypertension; R91.8 Other nonspecific abnormal finding of lung field
CPT/HCPCS: 97116-GP; 97162-GP; 97166-GO; 97535-GO; G8978-GP-CK; G8987-GO-CJ; G8988-GO-CI; J0690; J1100; J1170; J1650; J2001; J2250; J2405; J2704; J3010

== ENCOUNTER 2017-07-30 08:21 | Inpatient (IN) | payer OTHER, MEDICAID ==
[2017-07-30] MEDS ORDERED: ceFAZolin 2 GM/SWFI 2 GM/20 ML SYR IVP ONE (08:33)
[2017-07-30] MEDS ORDERED: LIDOCAINE 1% 2 ML INJ ID PRN (08:38)
[2017-07-30] MEDS ORDERED: LR 1,000 ML IV ONE (08:38)
[2017-07-30] MEDS ORDERED: ceFAZolin 2 GM/DEXTROSE 100 ML IV ONE (09:00)
[2017-07-30] MEDS ORDERED: MIDAZOLAM 2 MG/2 ML VIAL IVP ONE ×3 (09:00→10:36)
[2017-07-30] MEDS ORDERED: BUPIVACAINE 0.25% 30 ML SDV ONE (09:40)
--- NOTE | 2017-07-30 10:36 | PDANEPAE ---
ANE History of Present Illness L BKA ANE Past Medical History - Cardiovascular History Hx Hypertension: Yes Hx Arrhythmias: Yes Hx Chest Pain: No Hx Coronary Artery / Peripheral Vascular Disease: No Hx CHF / Valvular Disease: No Hx Palpitations: No Cardiovascular History Comment: hx of afib with RVR - Pulmonary History Hx COPD: Yes Hx Asthma/Reactive Airway Disease: No Hx Recent Upper Respiratory Infection: No Hx Oxygen in Use at Home: No Hx Sleep Apnea: No Sleep Apnea Screening Result - Last Documented: Positive Pulmonary History Comment: amy triggers. lung mass from 06/2016. hx of bronchitis and pna - Neurologic History Hx Cerebrovascular Accident: No Hx Seizures: Yes Hx Dementia: No Neurologic History Comment: seizures with etoh withdrawl. hx of back surgeries - Endocrine History Hx Diabetes: No Hypothyroid: No Hyperthyroid: No Obesity: moderate - Renal History Hx Renal Disorders: No - Liver History Hx Hepatic Disorders: No - Neurological & Psychiatric Hx Hx Neurological and Psychiatric Disorders: Yes Neurological / Psychiatric History Comment: ADHD. bipolar. anxiety. depression - Cancer History Hx Cancer: No - Congenital Disorder History Hx Congenital Disorders: No - GI History GERD: no Hx Gastrointestinal Disorders: Yes Gastrointestinal History Comment: gastric bypass surgery - Other Health History Other Health History: frostbite,dry gangrene with multiple toe surgeries. anemia. hx of multiple falls. chronic pain. hx of alcoholism and opiod dependence - Chronic Pain History Chronic Pain: Yes (generalized) - Surgical History Prior Surgeries: 06/04/17 skin grafting of Left heel with [facility]. 04/26/17 Left heel i&d with Shawn. 03/14/17 left 1st and 3rd digit amputation with Shawn. left 5th toe amputation with Shawn. Cholecystectomy 1992. gastric bypass 1999. 3 spine fusions L2-S1 2000, 2013, 2016 ANE Review of Systems Review of Systems: - Exercise capacity METS (RN): 3 METS ANE Patient History - Allergies Allergies/Adverse Reactions: gabapentin Allergy (Verified 03/10/17 22:44) bee stings Allergy (Uncoded 07/29/17 15:56) Anaphylaxis - Home Medications Home Medications: Albuterol [Proventil Inhaler HFA (*)] 2 puffs IH Q4H PRN 03/14/17 [Last Taken 00:00] Fluticasone/Salmeter 250/50Mcg [Advair 250/50 (*)] 1 puffs IH BID 07/29/17 [ Last Taken 07/29/17 07:00] HYDROmorphone HCL [Dilaudid 4 mg (*)] 4 mg PO Q4HRS PRN 07/29/17 [Last Taken 23:30] LORazepam [Ativan (*)] 1 mg PO Q8HRS PRN 07/29/17 [Last Taken 07/29/17 23:30] Promethazine HCl [Phenergan 25mg (*)] 25 mg PO Q8HRS PRN 07/29/17 [Last Taken 23:30] Spironolactone [Aldactone 50 MG (RX)] 50 mg PO DAILY 07/29/17 [Last Taken 23:30] - NPO status NPO Since - Liquids (Date): 07/29/17 NPO Since - Liquids (Time): 23:30 NPO Since - Solids (Date): 07/29/17 NPO Since - Solids (Time): 23:30 - Smoking Hx Smoking Status: Heavy smoker - Family Anes Hx Family Hx Anesthesia Complications: none ANE Labs/Vital Signs - Labs Result Diagrams: 07/30/17 10:19 07/30/17 09:18 - Vital Signs Blood Pressure: 163/97 Heart Rate: 97 Respiratory Rate: 16 O2 Sat (%): 97 Height: 195.58 cm Weight: 111.13 kg ANE Physical Exam - Airway Neck exam: FROM Mallampati Score: Class 1 Mouth exam: dentures - Pulmonary Pulmonary: clear to auscultation - Cardiovascular Cardiovascular: regular rate and rhythym - ASA Status ASA Status: III ANE Anesthesia Plan Anesthesia Plan: general endotracheal anesthesia
[2017-07-30 10:37] LABS: PLATELET COUNT 322 10^3/uL (150-400)
[2017-07-30] MEDS ORDERED: ALBUTEROL 3 ML DEYVIAL IH ONE (10:38)
[2017-07-30] MEDS ORDERED: PROPOFOL 200 MG/20 ML VIAL ONE (10:42)
[2017-07-30] MEDS ORDERED: fentaNYL 250 MCG/5 ML INJ ONE (10:42)
[2017-07-30] MEDS ORDERED: DEXAMETHASONE 4 MG/ML VIAL ONE (10:43)
[2017-07-30] MEDS ORDERED: ROCURONIUM 50 MG/5 ML VIAL ONE (10:43)
[2017-07-30] MEDS ORDERED: KETAMINE 500 MG/10 ML VIAL ONE (10:57)
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
[2017-07-30] MEDS ORDERED: fentaNYL 100 MCG/2 ML INJ ONE ×4 (11:35→13:35)
[2017-07-30] MEDS ORDERED: ONDANSETRON 4 MG/2 ML VIAL ONE (11:45)
[2017-07-30] MEDS ORDERED: PROMETHAZINE HCL 25 MG/ML INJ IVP PRN (11:58)
[2017-07-30] MEDS ORDERED: ALBUTEROL 3 ML DEYVIAL IH PRN (11:58)
[2017-07-30] MEDS ORDERED: NALOXONE HCL 0.4 MG/ML INJ IVP PRN ×2 (11:58→21:26)
[2017-07-30] MEDS ORDERED: HYDROmorphONE/DILAUDID 1 MG/ML INJ IVP PRN ×2 (11:58→13:13)
[2017-07-30] MEDS ORDERED: ONDANSETRON 4 MG/2 ML VIAL IVP PRN ×2 (11:58→13:13)
[2017-07-30] MEDS ORDERED: GLYCOPYRROLATE 0.2 MG/1 ML VIAL ONE ×2 (12:19)
[2017-07-30] MEDS ORDERED: NEOSTIGMINE METHYLSULFATE 3 MG/3 ML SYR ONE (12:19)
[2017-07-30] MEDS ORDERED: HYDROmorphONE/DILAUDID 2 MG/ML INJ ONE ×2 (12:25→13:04)
[2017-07-30] MEDS ORDERED: DIAZEPAM 5 MG/ML 1 ML SYR IVP PRN (13:05)
[2017-07-30] MEDS: fentaNYL 100 MCG/2 ML INJ IVP PRN ×4 (13:06→13:48)
[2017-07-30] MEDS: HYDROmorphONE/DILAUDID 2 MG/ML INJ IVP PRN ×4 (13:06→13:49)
--- NOTE | 2017-07-30 13:07 | POSTANESTH ---
Post Anesthetic Evaluation Cardiovascular Status: Similar to Pre-Op Cond Respiratory Status: Similar to Pre-op Cond. Level of Consciousness/Mental Status: Can Participate in Eval Pain Control: Inadeq, Add Tx Required Nausea/Vomiting Control: Adequate, Prn Tx Ordered Complications Possibly Related to Anesthesia: None Noted
--- NOTE | 2017-07-30 13:12 | POSTOPPROG ---
Post Op Note Date of Operation: 07/30/17 Surgeon: Finn Escobar Testing Machine Operator: Annabelle Ozuna Anesthesiologist: Akash Sandy Anesthesia: GET(General Endotracheal) Pre-op Diagnosis: nonhealing calcaneal ulcer with bone exposure, gangrene Post-op Diagnosis: same Procedure: L BKA Findings: good blood supply Inf/Abcess present in the surg proc area at time of surgery?: No EBL: 50-100 Complications: none Specimen(s): L BKA to pathology
[2017-07-30] MEDS ORDERED: HYDROmorphONE/DILAUDID 2 MG TAB PO PRN (13:14)
[2017-07-30] MEDS ORDERED: PROMETHAZINE HCL 25 MG TAB PO PRN (13:15)
[2017-07-30] MEDS: HYDROmorphONE/DILAUDID 1 MG/ML INJ IVP PRN ×7 (14:36→21:54)
--- NOTE | 2017-07-30 15:43 | PDMN ---
Medical Necessity Medical necessity: IP surgery per [facility] cpt 00086 L CHEPEA
--- NOTE | 2017-07-30 16:44 | SOAPPROG ---
SOAP Progress Note Assessment/Plan: Assessment/Plan: 52 Y M s/p L BKA. POD#0. Pain control not achieved. Added toradol and increased scale of IV dilaudid. Patient also getting PO dilaudid now. Want to achieve pain control carefully in a patient with addictive history. Wounds well dressed, no saturation. Alert. AFVSS. Sitting up in bed talking with daughter and girlfriend. Continue routine post op care. 07/30/17 16:42 Objective: Vital Signs Temp Pulse Resp BP Pulse Ox 36.8 C 81 20 152/96 H 94 07/30/17 16:25 07/30/17 16:25 07/30/17 16:25 07/30/17 16:25 07/30/17 16:25 Laboratory Results 07/30/17 10:19 07/30/17 09:18 07/29/17 07/30/17 07/31/17 05:59 05:59 05:59 Intake Total 1200 Output Total 100 Balance 1100 ICD10 Worksheet Patient Problems: Problems Problem Status Onset Abdominal pain Acute Alcohol abuse Acute Alcohol intoxication Acute Alcohol withdrawal Acute Atrial fibrillation with RVR Acute Back pain Acute COPD (chronic obstructive pulmonary disease) Acute Cold exposure Acute Cold exposure Acute Dehydration Acute Facial laceration Acute Frostbite Acute Frostbite of both great toes Acute Laceration of eyebrow, left Acute Lactic acidosis Acute Lower extremity cellulitis Acute Multiple abrasions Acute Neck strain Acute Reversible airways disease Acute Seizure Acute Situational depression Acute Strain of mid-back Acute
[2017-07-30] MEDS: KETOROLAC 15 MG/1 ML SDV IVP SCH ×3 (17:17→23:44)
[2017-07-30] MEDS: NICOTINE 21 MG/24 HR PATCH TD SCH (18:12)
[2017-07-30] MEDS: DOCUSATE SODIUM 100 MG CAP PO SCH (20:31)
[2017-07-30] MEDS: FLUTICASONE/SALMETER 250/50MCG DISKUS IH SCH (21:06)
[2017-07-30] MEDS: ZOLPIDEM TARTRATE 5 MG TAB PO PRN (21:54)
[2017-07-30] MEDS: HYDROmorphONE/DILAUDID 6 MG/30 ML PCA IV PRN (22:18)
[2017-07-30] MEDS: D5W 1/2 NS 1,000 ML IV SCH (22:23)
[2017-07-31] MEDS: KETOROLAC 15 MG/1 ML SDV IVP SCH ×4 (06:18→23:12)
[2017-07-31] MEDS: HYDROmorphONE/DILAUDID 6 MG/30 ML PCA IV PRN ×3 (07:47→23:12)
[2017-07-31] MEDS: NICOTINE 21 MG/24 HR PATCH TD SCH (07:51)
[2017-07-31] MEDS: DOCUSATE SODIUM 100 MG CAP PO SCH ×2 (07:51→20:49)
[2017-07-31] MEDS: FLUTICASONE/SALMETER 250/50MCG DISKUS IH SCH ×2 (10:28→21:27)
--- NOTE | 2017-07-31 10:43 | SOAPPROG ---
SOAP Progress Note Assessment/Plan: Assessment/Plan: 52 Y M s/p L BKA. POD#1. PT/OT dressing change tomorrow. Dispo: sometime in next few days. pt amenable to returning to [facility]. D/w'ed case management S: C/o pain but appears comfortable and happy with TRAINING COORDINATOR. Eating. O: alert, nad no wob rrr abd soft wound well dressed, no saturation 07/31/17 10:41 Objective: Vital Signs Temp Pulse Resp BP Pulse Ox 36.8 C 80 16 138/81 H 94 07/31/17 08:00 07/31/17 10:29 07/31/17 10:29 07/31/17 08:00 07/31/17 10:29 Laboratory Results 07/31/17 04:40 07/31/17 04:40 07/30/17 07/31/17 08/01/17 05:59 05:59 05:59 Intake Total 1750 550 Output Total 750 Balance 1000 550 ICD10 Worksheet Patient Problems: Problems Problem Status Onset Abdominal pain Acute Alcohol abuse Acute Alcohol intoxication Acute Alcohol withdrawal Acute Atrial fibrillation with RVR Acute Back pain Acute COPD (chronic obstructive pulmonary disease) Acute Cold exposure Acute Cold exposure Acute Dehydration Acute Facial laceration Acute Frostbite Acute Frostbite of both great toes Acute Laceration of eyebrow, left Acute Lactic acidosis Acute Lower extremity cellulitis Acute Multiple abrasions Acute Neck strain Acute Reversible airways disease Acute Seizure Acute Situational depression Acute Strain of mid-back Acute
[2017-07-31] MEDS: D5W 1/2 NS 1,000 ML IV SCH (11:41)
--- NOTE | 2017-07-31 11:52 | ASMTCMCOM ---
CM Note CM Note Notes: 07/31/2017 Case Management Note Pt admitted for below the knee amputation. Met w/pt to discuss d/c needs. Pt requested return to [facility] rehab. Faxed via all scripts. Confirmed acceptance with Jessica from [facility]. Pt is engaged to Irma [phone]. His 16 y.o daughter Ness Hogan is a source of support as well. Case Management d/c poc: [facility] rehab Case Management to follow. Date Signed: 07/31/2017 11:51 AM Electronically Signed By:Miriam Headley RN
[2017-07-31] MEDS: SPIRONOLACTONE 50 MG TAB PO SCH (12:33)
[2017-07-31] MEDS: ZOLPIDEM TARTRATE 5 MG TAB PO PRN (22:32)
[2017-08-01] MEDS: KETOROLAC 15 MG/1 ML SDV IVP SCH ×3 (05:31→18:30)
[2017-08-01] MEDS: D5W 1/2 NS 1,000 ML IV SCH (05:35)
[2017-08-01] MEDS: NICOTINE 21 MG/24 HR PATCH TD SCH (07:48)
[2017-08-01] MEDS: LORazepam 1 MG TAB PO PRN ×2 (07:48→16:25)
[2017-08-01] MEDS: SPIRONOLACTONE 50 MG TAB PO SCH (07:49)
[2017-08-01] MEDS: ENOXAPARIN 40 MG/0.4 ML SYR SC SCH (08:53)
[2017-08-01] MEDS: DOCUSATE SODIUM 100 MG CAP PO SCH ×2 (08:53→22:16)
[2017-08-01] MEDS: FLUTICASONE/SALMETER 250/50MCG DISKUS IH SCH ×2 (09:05→20:54)
[2017-08-01] MEDS: ALBUTEROL 60 PUFFS/8 GM MDI IH PRN ×2 (09:06→20:53)
[2017-08-01] MEDS: HYDROmorphONE/DILAUDID 6 MG/30 ML PCA IV PRN ×2 (10:13→16:31)
--- NOTE | 2017-08-01 13:24 | ASMTCMCOM ---
CM Note CM Note Notes: Chart reviewed. Per Jessica, patient would not be accepted back to [facility] due to past behavior . When patient questioned about conflict, he denies. He would prefer to stay in [place] if possible. Needs SNF rehab. CM to follow Plan: to SNF rehab when medically stable. Date Signed: 08/01/2017 01:23 PM Electronically Signed By:Ana Quiros RN
[2017-08-01] MEDS: HYDROmorphONE/DILAUDID 4 MG TAB PO PRN ×2 (15:16→19:16)
[2017-08-01] MEDS ORDERED: NALOXONE HCL 0.4 MG/ML INJ IVP PRN (15:23)
--- NOTE | 2017-08-01 15:26 | SOAPPROG ---
SOAP Progress Note Assessment/Plan: Assessment: 52 y/o M s/p L BKA POD#2 S: Sitting up in chair. Having pain, but it is tolerable. Has been working with PT/OT. O: Alert Afebrile RRR No increased WOB LLE: dressing taken down today. Incision is cdi without surrounding erythema, warmth or induration. 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 Continue to work with PT/OT. Plan for dispo to rehab tomorrow. He would like to go back to [place], but apparently they will not accept him due to previous poor behavior. Case management working on other options. 08/01/17 15:23 Objective: Vital Signs Temp Pulse Resp BP Pulse Ox 36.9 C 89 16 149/88 H 92 08/01/17 12:00 08/01/17 12:00 08/01/17 12:00 08/01/17 12:00 08/01/17 12:00 Laboratory Results 07/31/17 04:40 07/31/17 04:40 07/31/17 08/01/17 08/02/17 05:59 05:59 05:59 Intake Total 1750 2670 Output Total 750 1375 Balance 1000 1295 ICD10 Worksheet Patient Problems: Problems Problem Status Onset Abdominal pain Acute Alcohol abuse Acute Alcohol intoxication Acute Alcohol withdrawal Acute Atrial fibrillation with RVR Acute Back pain Acute COPD (chronic obstructive pulmonary disease) Acute Cold exposure Acute Cold exposure Acute Dehydration Acute Facial laceration Acute Frostbite Acute Frostbite of both great toes Acute Laceration of eyebrow, left Acute Lactic acidosis Acute Lower extremity cellulitis Acute Multiple abrasions Acute Neck strain Acute Reversible airways disease Acute Seizure Acute Situational depression Acute Strain of mid-back Acute
[2017-08-01] MEDS: ZOLPIDEM TARTRATE 5 MG TAB PO PRN (22:01)
[2017-08-02] MEDS: KETOROLAC 15 MG/1 ML SDV IVP SCH ×4 (00:28→18:42)
[2017-08-02] MEDS: HYDROmorphONE/DILAUDID 4 MG TAB PO PRN ×6 (00:30→20:44)
[2017-08-02] MEDS: LORazepam 1 MG TAB PO PRN ×3 (00:30→16:33)
[2017-08-02] MEDS: D5W 1/2 NS 1,000 ML IV SCH (01:55)
[2017-08-02] MEDS: ENOXAPARIN 40 MG/0.4 ML SYR SC SCH (07:33)
[2017-08-02] MEDS: SPIRONOLACTONE 50 MG TAB PO SCH (07:34)
[2017-08-02] MEDS: NICOTINE 21 MG/24 HR PATCH TD SCH (07:35)
[2017-08-02] MEDS: HYDROmorphONE/DILAUDID 6 MG/30 ML PCA IV PRN (07:54)
[2017-08-02] MEDS: ALBUTEROL 60 PUFFS/8 GM MDI IH PRN ×2 (08:46→21:03)
[2017-08-02] MEDS: FLUTICASONE/SALMETER 250/50MCG DISKUS IH SCH ×2 (08:46→21:03)
[2017-08-02] MEDS: DOCUSATE SODIUM 100 MG CAP PO SCH ×2 (08:48→20:44)
--- NOTE | 2017-08-02 09:58 | SOAPPROG ---
SOAP Progress Note Assessment/Plan: Assessment: 52 y/o M s/p L BKA POD#2 S: Sitting up in chair. Having pain, but it is tolerable. Has been working with PT/OT. O: Alert Afebrile RRR No increased WOB LLE: dressing taken down today. Incision is cdi without surrounding erythema, warmth or induration. 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 Continue to work with PT/OT. Plan for dispo to rehab tomorrow. He would like to go back to [place], but apparently they will not accept him due to previous poor behavior. Case management working on other options. 08/01/17 15:23 08/02/17 09:56 Continues to improve. No complaints. Still using fire hydrant operator, but agrees to d/c it. Working with case management for dispo to rehab. Can go today if a bed is secured for him. Objective: Vital Signs Temp Pulse Resp BP Pulse Ox 36.6 C 80 12 160/100 H 93 08/02/17 08:00 08/02/17 08:51 08/02/17 08:51 08/02/17 08:00 08/02/17 08:51 Laboratory Results 07/31/17 04:40 07/31/17 04:40 08/01/17 08/02/17 08/03/17 05:59 05:59 05:59 Intake Total 2670 950 Output Total 1375 750 175 Balance 1295 200 -175 ICD10 Worksheet Patient Problems: Problems Problem Status Onset Abdominal pain Acute Alcohol abuse Acute Alcohol intoxication Acute Alcohol withdrawal Acute Atrial fibrillation with RVR Acute Back pain Acute COPD (chronic obstructive pulmonary disease) Acute Cold exposure Acute Cold exposure Acute Dehydration Acute Facial laceration Acute Frostbite Acute Frostbite of both great toes Acute Laceration of eyebrow, left Acute Lactic acidosis Acute Lower extremity cellulitis Acute Multiple abrasions Acute Neck strain Acute Reversible airways disease Acute Seizure Acute Situational depression Acute Strain of mid-back Acute
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
--- NOTE | 2017-08-02 11:16 | ASMTCMCOM ---
CM Note CM Note Notes: Spoke w/surgical PA, pt ready for dc but so far no SNFs have accepted. CM sent three new referrals to: [facility]/ [place]/ [facility], JALEEL w/f. DC Plan: SNF Date Signed: 08/02/2017 11:15 AM Electronically Signed By:Rody Meadows RN
[2017-08-02] MEDS: ZOLPIDEM TARTRATE 5 MG TAB PO PRN (22:18)
[2017-08-03] MEDS: HYDROmorphONE/DILAUDID 4 MG TAB PO PRN ×8 (00:44→22:45)
[2017-08-03] MEDS: LORazepam 1 MG TAB PO PRN ×3 (00:44→16:35)
[2017-08-03] MEDS: KETOROLAC 15 MG/1 ML SDV IVP SCH ×4 (00:44→18:45)
[2017-08-03] MEDS: ALBUTEROL 60 PUFFS/8 GM MDI IH PRN (07:53)
[2017-08-03] MEDS: DOCUSATE SODIUM 100 MG CAP PO SCH ×2 (08:12→20:36)
[2017-08-03] MEDS: SPIRONOLACTONE 50 MG TAB PO SCH (08:13)
[2017-08-03] MEDS: FLUTICASONE/SALMETER 250/50MCG DISKUS IH SCH ×2 (08:13→21:38)
[2017-08-03] MEDS: ENOXAPARIN 40 MG/0.4 ML SYR SC SCH (08:13)
[2017-08-03] MEDS: NICOTINE 21 MG/24 HR PATCH TD SCH (08:14)
--- NOTE | 2017-08-03 08:59 | SOAPPROG ---
SOAP Progress Note Assessment/Plan: Assessment: 52yo M s/p L BKA for chronic non-healing wound - VSS, HDS - pain controlled, transitioning to PO dilaudid - stump elevated. Incision c/d/i, dressing with minimal saturation - keep stump elevated and extended - working on placement, likely wont happen until Saturday Plan: 08/03/17 08:55 Subjective: feels well, pain controlled. Objective: Vital Signs Temp Pulse Resp BP Pulse Ox 36.8 C 80 16 137/81 H 94 08/03/17 07:55 08/03/17 07:55 08/03/17 07:55 08/03/17 07:55 08/03/17 07:55 Laboratory Results 07/31/17 04:40 07/31/17 04:40 08/02/17 08/03/17 08/04/17 05:59 05:59 05:59 Intake Total 950 750 Output Total 750 1175 Balance 200 -425 ICD10 Worksheet Patient Problems: Problems Problem Status Onset Abdominal pain Acute Alcohol abuse Acute Alcohol intoxication Acute Alcohol withdrawal Acute Atrial fibrillation with RVR Acute Back pain Acute COPD (chronic obstructive pulmonary disease) Acute Cold exposure Acute Cold exposure Acute Dehydration Acute Facial laceration Acute Frostbite Acute Frostbite of both great toes Acute Laceration of eyebrow, left Acute Lactic acidosis Acute Lower extremity cellulitis Acute Multiple abrasions Acute Neck strain Acute Reversible airways disease Acute Seizure Acute Situational depression Acute Strain of mid-back Acute
[2017-08-03] MEDS: ZOLPIDEM TARTRATE 5 MG TAB PO PRN (21:23)
[2017-08-04] MEDS: KETOROLAC 15 MG/1 ML SDV IVP SCH ×3 (00:16→11:49)
[2017-08-04] MEDS: HYDROmorphONE/DILAUDID 4 MG TAB PO PRN ×7 (01:47→21:31)
--- NOTE | 2017-08-04 04:27 | GOP ---
[f rep st] OPERATIVE REPORT DATE OF OPERATION: 07/30/2017 SURGEON: Finn Escobar MD TYPEWRITER MECHANIC: Ni Moses NP PREOPERATIVE DIAGNOSIS: Left leg gangrene with secondary frostbite injuries with exposed calcaneus. POSTOPERATIVE DIAGNOSIS: Left leg gangrene with secondary frostbite injuries with exposed calcaneus. PROCEDURE PERFORMED: Left below knee amputation. FINDINGS: The patient was found to have patent vessels and good wound healing. Did have some difficulty with posterior flap because of marked amount of edema and swelling and enlargement of his left calf. DESCRIPTION OF PROCEDURE: The patient was taken to the operating room where he received satisfactory general endotracheal anesthesia. He was prepped and draped in usual sterile fashion. The leg was then exsanguinated with Esmarch and tourniquet was inflated to 300. A transverse incision was made 8 cm from the pubic tubercle and dissection extended down through some edematous muscle and tissue in the anterior and lateral compartments of the leg. The anterior tibial vessels were dissected free. They were multiply ligated and divided, but appeared to be still quite patent. The tibia was exposed. It was then divided with a power saw and beveled anteriorly. The fibula was then dissected free up above the point of the tibia transection. It too was divided. Posterior flap was dissected free and divided. The popliteal artery was freed up, multiply ligated and divided, as were multiple branches of popliteal vein. The tibial nerve was retracted. It was tied well proximally, infiltrated with 0.5% Marcaine, and then transected to completion of the posterior flap. The specimen was removed. The posterior flap muscles were markedly swollen and large, and required significant amount of reduction in volume. Posterior flap was elevated up. It was difficult to pull that up over the tibia because of the leg swelling and bulkiness of his musculature. Musculature was again thinned until this was feasible. The posterior flap was sutured in place with interrupted 0 Vicryl sutures, securing it to the muscular fascia of the leg and the anterior fascia of the amputation site. Subcu was closed with interrupted 2 -0 Vicryl sutures. Wound was infiltrated with 0.5% Marcaine. The skin was closed with 3-0 Prolene mattress sutures and skin russ. Wounds were thoroughly infiltrated with 0.5% Marcaine and then wrapped with a figure-of- eight dressing. Because of the nature of the posterior flap, the skin had to be closed in sort of a T fashion rather than a straight line. Hemostasis appeared to be adequate. The wound was dressed. He tolerated procedure well and was taken recovery room in good condition. There were no complications. /[id number]/MODL MTDD
[2017-08-04] MEDS: LORazepam 1 MG TAB PO PRN ×3 (04:55→21:31)
[2017-08-04] MEDS: NICOTINE 21 MG/24 HR PATCH TD SCH (08:02)
[2017-08-04] MEDS: SPIRONOLACTONE 50 MG TAB PO SCH (08:02)
[2017-08-04] MEDS: ENOXAPARIN 40 MG/0.4 ML SYR SC SCH (08:03)
[2017-08-04] MEDS: FLUTICASONE/SALMETER 250/50MCG DISKUS IH SCH ×2 (08:11→21:42)
[2017-08-04] MEDS: ALBUTEROL 60 PUFFS/8 GM MDI IH PRN ×2 (08:11→21:42)
[2017-08-04] MEDS: DOCUSATE SODIUM 100 MG CAP PO SCH ×2 (08:13→21:32)
--- NOTE | 2017-08-04 08:20 | SOAPPROG ---
SOAP Progress Note Assessment/Plan: Assessment: 52 y/o M s/p L BKA POD#2 S: Sitting up in chair. Having pain, but it is tolerable. Has been working with PT/OT. O: Alert Afebrile RRR No increased WOB LLE: dressing taken down today. Incision is cdi without surrounding erythema, warmth or induration. 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 Continue to work with PT/OT. Plan for dispo to rehab tomorrow. He would like to go back to [place], but apparently they will not accept him due to previous poor behavior. Case management working on other options. 08/01/17 15:23 08/02/17 09:56 Continues to improve. No complaints. Still using animal eviscerator, but agrees to d/c it. Working with case management for dispo to rehab. Can go today if a bed is secured for him. Subjective: Doing well, although did bang his stump on something when he got up with walker to go to the bathroom. Had increased pain, now controlled with oral dialudid. Continue to work with PT/OT to get stronger. Hopefully find placement tomorrow. Objective: Vital Signs Temp Pulse Resp BP Pulse Ox 36.8 C 82 12 155/93 H 94 08/04/17 07:50 08/04/17 07:50 08/04/17 07:50 08/04/17 07:50 08/04/17 07:50 Laboratory Results 07/31/17 04:40 07/31/17 04:40 08/03/17 08/04/17 08/05/17 05:59 05:59 05:59 Intake Total 750 Output Total 1175 800 Balance -425 -800 ICD10 Worksheet Patient Problems: Problems Problem Status Onset Abdominal pain Acute Alcohol abuse Acute Alcohol intoxication Acute Alcohol withdrawal Acute Atrial fibrillation with RVR Acute Back pain Acute COPD (chronic obstructive pulmonary disease) Acute Cold exposure Acute Cold exposure Acute Dehydration Acute Facial laceration Acute Frostbite Acute Frostbite of both great toes Acute Laceration of eyebrow, left Acute Lactic acidosis Acute Lower extremity cellulitis Acute Multiple abrasions Acute Neck strain Acute Reversible airways disease Acute Seizure Acute Situational depression Acute Strain of mid-back Acute
[2017-08-04] MEDS: ZOLPIDEM TARTRATE 5 MG TAB PO PRN (21:30)
[2017-08-05] MEDS: HYDROmorphONE/DILAUDID 4 MG TAB PO PRN ×8 (00:42→22:04)
[2017-08-05] MEDS: LORazepam 1 MG TAB PO PRN ×2 (06:24→15:03)
[2017-08-05] MEDS: SPIRONOLACTONE 50 MG TAB PO SCH (08:33)
[2017-08-05] MEDS: NICOTINE 21 MG/24 HR PATCH TD SCH (08:33)
[2017-08-05] MEDS: ENOXAPARIN 40 MG/0.4 ML SYR SC SCH (08:34)
[2017-08-05] MEDS: FLUTICASONE/SALMETER 250/50MCG DISKUS IH SCH ×2 (09:27→21:07)
[2017-08-05] MEDS: ALBUTEROL 60 PUFFS/8 GM MDI IH PRN ×2 (09:27→19:07)
[2017-08-05] MEDS: DOCUSATE SODIUM 100 MG CAP PO SCH ×2 (10:20→20:08)
--- NOTE | 2017-08-05 14:27 | SOAPPROG ---
SOAP Progress Note Assessment/Plan: Assessment: 52 y/o M s/p L BKA POD#2 S: Sitting up in chair. Having pain, but it is tolerable. Has been working with PT/OT. O: Alert Afebrile RRR No increased WOB LLE: dressing taken down today. Incision is cdi without surrounding erythema, warmth or induration. 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 Continue to work with PT/OT. Plan for dispo to rehab tomorrow. He would like to go back to [place], but apparently they will not accept him due to previous poor behavior. Case management working on other options. 08/01/17 15:23 08/02/17 09:56 Continues to improve. No complaints. Still using software quality assurance engineer, but agrees to d/c it. Working with case management for dispo to rehab. Can go today if a bed is secured for him. 08/05/17 14:25 No changes. Dressing was taken down today and replaced. Incision is cdi. He may go to rehab as soon as there is a bed for him. Objective: Vital Signs Temp Pulse Resp BP Pulse Ox 36.7 C 76 16 151/92 H 93 08/05/17 07:31 08/05/17 09:30 08/05/17 09:30 08/05/17 07:31 08/05/17 09:30 Laboratory Results 07/31/17 04:40 07/31/17 04:40 08/04/17 08/05/17 08/06/17 05:59 05:59 05:59 Intake Total 1300 Output Total 800 1700 525 Balance -800 -400 -525 ICD10 Worksheet Patient Problems: Problems Problem Status Onset Abdominal pain Acute Alcohol abuse Acute Alcohol intoxication Acute Alcohol withdrawal Acute Atrial fibrillation with RVR Acute Back pain Acute COPD (chronic obstructive pulmonary disease) Acute Cold exposure Acute Cold exposure Acute Dehydration Acute Facial laceration Acute Frostbite Acute Frostbite of both great toes Acute Laceration of eyebrow, left Acute Lactic acidosis Acute Lower extremity cellulitis Acute Multiple abrasions Acute Neck strain Acute Reversible airways disease Acute Seizure Acute Situational depression Acute Strain of mid-back Acute
[2017-08-05] MEDS: ZOLPIDEM TARTRATE 5 MG TAB PO PRN (22:04)
[2017-08-06] MEDS: HYDROmorphONE/DILAUDID 4 MG TAB PO PRN ×8 (01:04→23:47)
[2017-08-06] MEDS: LORazepam 1 MG TAB PO PRN ×2 (05:01→14:26)
[2017-08-06] MEDS: NICOTINE 21 MG/24 HR PATCH TD SCH (08:05)
[2017-08-06] MEDS: SPIRONOLACTONE 50 MG TAB PO SCH (08:07)
[2017-08-06] MEDS: FLUTICASONE/SALMETER 250/50MCG DISKUS IH SCH ×2 (08:08→20:44)
[2017-08-06] MEDS: DOCUSATE SODIUM 100 MG CAP PO SCH ×2 (08:08→20:36)
[2017-08-06] MEDS: ALBUTEROL 60 PUFFS/8 GM MDI IH PRN (08:09)
[2017-08-06] MEDS: ENOXAPARIN 40 MG/0.4 ML SYR SC SCH (08:10)
--- NOTE | 2017-08-06 11:42 | SOAPPROG ---
SOAP Progress Note Assessment/Plan: Assessment/Plan: 52 Y M s/p L BKA. PT/OT. Dressing changed yesterday--plan for dressing change tomorrow. Dispo: awaiting placement. d/w'ed case management. S: Says he is getting good pain control. Girlfriend says he isn't. O: alert, nad, appears very comfortable. no wob rrr abd soft wound well dressed, no saturation 08/06/17 11:40 Objective: Vital Signs Temp Pulse Resp BP Pulse Ox 37.0 C 79 16 139/85 H 92 08/06/17 08:00 08/06/17 08:00 08/06/17 08:00 08/06/17 08:00 08/06/17 08:00 Laboratory Results 07/31/17 04:40 07/31/17 04:40 08/05/17 08/06/17 08/07/17 05:59 05:59 05:59 Intake Total 1300 350 Output Total 1700 525 Balance -400 -525 350 ICD10 Worksheet Patient Problems: Problems Problem Status Onset Abdominal pain Acute Alcohol abuse Acute Alcohol intoxication Acute Alcohol withdrawal Acute Atrial fibrillation with RVR Acute Back pain Acute COPD (chronic obstructive pulmonary disease) Acute Cold exposure Acute Cold exposure Acute Dehydration Acute Facial laceration Acute Frostbite Acute Frostbite of both great toes Acute Laceration of eyebrow, left Acute Lactic acidosis Acute Lower extremity cellulitis Acute Multiple abrasions Acute Neck strain Acute Reversible airways disease Acute Seizure Acute Situational depression Acute Strain of mid-back Acute
--- NOTE | 2017-08-06 11:47 | ASMTCMCOM ---
CM Note CM Note Notes: Spoke with Jessica at [facility] to find out why patient cannot return there. Jessica states patient and his girlfriend were calling the ombudsman, threatening to javier, making problems with others in the program, and patient himself was noncompliant with his wound vac. Patient would remove his wound vac and then say the staff members had done it. Jessica stated patient had overall "nasty" behavior and would not be admitted at any [facility] facility in the future. Spoke with Debora Trimble regarding admission to their program and Dao says he will check with his clinical team and get back to me. CM will follow. Date Signed: 08/06/2017 11:46 AM Electronically Signed By:Makenzie Greenfield LCSW
[2017-08-06] MEDS: ZOLPIDEM TARTRATE 5 MG TAB PO PRN (20:40)
[2017-08-07] MEDS: HYDROmorphONE/DILAUDID 4 MG TAB PO PRN ×7 (03:42→22:15)
[2017-08-07] MEDS: LORazepam 1 MG TAB PO PRN ×3 (03:44→22:52)
[2017-08-07] MEDS: ALBUTEROL 60 PUFFS/8 GM MDI IH PRN ×2 (08:40→20:05)
[2017-08-07] MEDS: FLUTICASONE/SALMETER 250/50MCG DISKUS IH SCH ×2 (08:40→20:04)
--- NOTE | 2017-08-07 08:46 | SOAPPROG ---
SOAP Progress Note Assessment/Plan: Assessment: 52 y/o M s/p L BKA POD#2 S: Sitting up in chair. Having pain, but it is tolerable. Has been working with PT/OT. O: Alert Afebrile RRR No increased WOB LLE: dressing taken down today. Incision is cdi without surrounding erythema, warmth or induration. Plan: Transition from inspector hairspring truing to oral pain meds. Continue to work with PT/OT. Plan for dispo to rehab tomorrow. He would like to go back to [facility], but apparently they will not accept him due to previous poor behavior. Case management working on other options. 08/01/17 15:23 08/02/17 09:56 Continues to improve. No complaints. Still using inspector hairspring truing, but agrees to d/c it. Working with case management for dispo to rehab. Can go today if a bed is secured for him. 08/05/17 14:25 No changes. Dressing was taken down today and replaced. Incision is cdi. He may go to rehab as soon as there is a bed for him. 08/07/17 08:46 No changes. Dressing was replaced today. Incision is cdi without signs of infection. Still awaiting bed at rehab. Objective: Vital Signs Temp Pulse Resp BP Pulse Ox 36.9 C 78 17 146/89 H 93 08/06/17 23:45 08/06/17 23:45 08/06/17 23:45 08/06/17 23:45 08/06/17 23:45 Laboratory Results 07/31/17 04:40 07/31/17 04:40 08/06/17 08/07/17 08/08/17 05:59 05:59 05:59 Intake Total 950 Output Total 525 1050 Balance -525 -100 ICD10 Worksheet Patient Problems: Problems Problem Status Onset Abdominal pain Acute Alcohol abuse Acute Alcohol intoxication Acute Alcohol withdrawal Acute Atrial fibrillation with RVR Acute Back pain Acute COPD (chronic obstructive pulmonary disease) Acute Cold exposure Acute Cold exposure Acute Dehydration Acute Facial laceration Acute Frostbite Acute Frostbite of both great toes Acute Laceration of eyebrow, left Acute Lactic acidosis Acute Lower extremity cellulitis Acute Multiple abrasions Acute Neck strain Acute Reversible airways disease Acute Seizure Acute Situational depression Acute Strain of mid-back Acute
[2017-08-07] MEDS: DOCUSATE SODIUM 100 MG CAP PO SCH ×2 (09:09→20:18)
[2017-08-07] MEDS: ENOXAPARIN 40 MG/0.4 ML SYR SC SCH (09:46)
[2017-08-07] MEDS: SPIRONOLACTONE 50 MG TAB PO SCH (09:46)
[2017-08-07] MEDS: NICOTINE 21 MG/24 HR PATCH TD SCH (09:46)
--- NOTE | 2017-08-07 18:15 | ASMTCMCOM ---
CM Note CM Note Notes: Received call from Dao at [facility], was not able to see pt today but will likely come tomorrow. He does state that pt is out of his Medicare days and will have to come under Medicaid. CM filled out and faxed [id number] to [facility], pt will likely be here through the weekend. DC Plan: SNF Date Signed: 08/07/2017 06:15 PM Electronically Signed By:Rody Meadows RN
[2017-08-07] MEDS: ZOLPIDEM TARTRATE 5 MG TAB PO PRN (22:16)
[2017-08-08] MEDS: HYDROmorphONE/DILAUDID 4 MG TAB PO PRN ×7 (03:03→22:13)
[2017-08-08] MEDS: NICOTINE 21 MG/24 HR PATCH TD SCH (08:22)
[2017-08-08] MEDS: SPIRONOLACTONE 50 MG TAB PO SCH (08:22)
[2017-08-08] MEDS: ENOXAPARIN 40 MG/0.4 ML SYR SC SCH (08:22)
[2017-08-08] MEDS: FLUTICASONE/SALMETER 250/50MCG DISKUS IH SCH ×2 (08:23→21:55)
[2017-08-08] MEDS: ALBUTEROL 60 PUFFS/8 GM MDI IH PRN ×2 (08:23→21:58)
[2017-08-08] MEDS: DOCUSATE SODIUM 100 MG CAP PO SCH ×2 (08:57→21:41)
[2017-08-08] MEDS: LORazepam 1 MG TAB PO PRN ×2 (09:25→17:04)
--- NOTE | 2017-08-08 13:01 | SOAPPROG ---
SOAP Progress Note Assessment/Plan: Assessment: 52 y/o M s/p L BKA POD#2 S: Sitting up in chair. Having pain, but it is tolerable. Has been working with PT/OT. O: Alert Afebrile RRR No increased WOB LLE: dressing taken down today. Incision is cdi without surrounding erythema, warmth or induration. Plan: Transition from biomedical technician to oral pain meds. Continue to work with PT/OT. Plan for dispo to rehab tomorrow. He would like to go back to [place], but apparently they will not accept him due to previous poor behavior. Case management working on other options. 08/01/17 15:23 08/02/17 09:56 Continues to improve. No complaints. Still using biomedical technician, but agrees to d/c it. Working with case management for dispo to rehab. Can go today if a bed is secured for him. 08/05/17 14:25 No changes. Dressing was taken down today and replaced. Incision is cdi. He may go to rehab as soon as there is a bed for him. 08/07/17 08:46 No changes. Dressing was replaced today. Incision is cdi without signs of infection. Still awaiting bed at rehab. Subjective: No change. Continue to await bed at SNF, likely will be here through weekend. Objective: Vital Signs Temp Pulse Resp BP Pulse Ox 36.9 C 84 16 135/87 H 94 08/08/17 08:00 08/08/17 08:00 08/08/17 08:00 08/08/17 08:00 08/08/17 08:00 Laboratory Results 07/31/17 04:40 07/31/17 04:40 08/07/17 08/08/17 08/09/17 05:59 05:59 05:59 Intake Total 950 Output Total 1050 Balance -100 ICD10 Worksheet Patient Problems: Problems Problem Status Onset Abdominal pain Acute Alcohol abuse Acute Alcohol intoxication Acute Alcohol withdrawal Acute Atrial fibrillation with RVR Acute Back pain Acute COPD (chronic obstructive pulmonary disease) Acute Cold exposure Acute Cold exposure Acute Dehydration Acute Facial laceration Acute Frostbite Acute Frostbite of both great toes Acute Laceration of eyebrow, left Acute Lactic acidosis Acute Lower extremity cellulitis Acute Multiple abrasions Acute Neck strain Acute Reversible airways disease Acute Seizure Acute Situational depression Acute Strain of mid-back Acute
[2017-08-08] MEDS: ZOLPIDEM TARTRATE 5 MG TAB PO PRN (22:13)
[2017-08-09] MEDS: HYDROmorphONE/DILAUDID 4 MG TAB PO PRN ×8 (01:20→22:45)
[2017-08-09] MEDS: LORazepam 1 MG TAB PO PRN ×3 (04:27→21:14)
[2017-08-09] MEDS: DOCUSATE SODIUM 100 MG CAP PO SCH ×2 (09:02→21:15)
[2017-08-09] MEDS: ALBUTEROL 60 PUFFS/8 GM MDI IH PRN ×2 (09:24→21:02)
[2017-08-09] MEDS: FLUTICASONE/SALMETER 250/50MCG DISKUS IH SCH ×2 (09:24→21:02)
[2017-08-09] MEDS: ENOXAPARIN 40 MG/0.4 ML SYR SC SCH (10:09)
[2017-08-09] MEDS: SPIRONOLACTONE 50 MG TAB PO SCH (10:09)
[2017-08-09] MEDS: NICOTINE 21 MG/24 HR PATCH TD SCH (10:09)
--- NOTE | 2017-08-09 10:51 | ASMTCMCOM ---
CM Note CM Note Notes: Received call from Dao at [facility], they will accept pt. [facility] still scheduled to come and evaluate pt. DC Plan: [facility] Date Signed: 08/09/2017 10:50 AM Electronically Signed By:Rody Meadows RN
--- NOTE | 2017-08-09 13:52 | SOAPPROG ---
SOAP Progress Note Assessment/Plan: Assessment: 52 y/o M s/p L BKA POD#2 S: Sitting up in chair. Having pain, but it is tolerable. Has been working with PT/OT. O: Alert Afebrile RRR No increased WOB LLE: dressing taken down today. Incision is cdi without surrounding erythema, warmth or induration. Plan: Transition from snuff blender to oral pain meds. Continue to work with PT/OT. Plan for dispo to rehab tomorrow. He would like to go back to [facility] [place], but apparently they will not accept him due to previous poor behavior. Case management working on other options. 08/01/17 15:23 08/02/17 09:56 Continues to improve. No complaints. Still using snuff blender, but agrees to d/c it. Working with case management for dispo to rehab. Can go today if a bed is secured for him. 08/05/17 14:25 No changes. Dressing was taken down today and replaced. Incision is cdi. He may go to rehab as soon as there is a bed for him. 08/07/17 08:46 No changes. Dressing was replaced today. Incision is cdi without signs of infection. Still awaiting bed at rehab. Subjective: [facility] came this am to fit pt with stump protector. CM has secured a bed at [facility] and will likely go early next week. Incision remains cdi without signs of infection. Objective: Vital Signs Temp Pulse Resp BP Pulse Ox 36.4 C 96 18 135/89 H 94 08/09/17 08:00 08/09/17 08:00 08/09/17 08:00 08/09/17 08:00 08/09/17 08:00 Laboratory Results 07/31/17 04:40 07/31/17 04:40 08/08/17 08/09/17 08/10/17 05:59 05:59 05:59 Intake Total 1200 Output Total 725 Balance 475 ICD10 Worksheet Patient Problems: Problems Problem Status Onset Abdominal pain Acute Alcohol abuse Acute Alcohol intoxication Acute Alcohol withdrawal Acute Atrial fibrillation with RVR Acute Back pain Acute COPD (chronic obstructive pulmonary disease) Acute Cold exposure Acute Cold exposure Acute Dehydration Acute Facial laceration Acute Frostbite Acute Frostbite of both great toes Acute Laceration of eyebrow, left Acute Lactic acidosis Acute Lower extremity cellulitis Acute Multiple abrasions Acute Neck strain Acute Reversible airways disease Acute Seizure Acute Situational depression Acute Strain of mid-back Acute
[2017-08-09] MEDS: ZOLPIDEM TARTRATE 5 MG TAB PO PRN (21:14)
[2017-08-10] MEDS: HYDROmorphONE/DILAUDID 4 MG TAB PO PRN ×7 (01:50→21:56)
[2017-08-10] MEDS: LORazepam 1 MG TAB PO PRN ×3 (05:21→21:57)
[2017-08-10] MEDS: ALBUTEROL 60 PUFFS/8 GM MDI IH PRN ×2 (08:17→21:00)
[2017-08-10] MEDS: FLUTICASONE/SALMETER 250/50MCG DISKUS IH SCH ×2 (08:17→20:59)
[2017-08-10] MEDS: DOCUSATE SODIUM 100 MG CAP PO SCH ×2 (08:27→22:25)
[2017-08-10] MEDS: SPIRONOLACTONE 50 MG TAB PO SCH (08:27)
[2017-08-10] MEDS: ENOXAPARIN 40 MG/0.4 ML SYR SC SCH (08:28)
[2017-08-10] MEDS: NICOTINE 21 MG/24 HR PATCH TD SCH (08:30)
[2017-08-10] MEDS: ZOLPIDEM TARTRATE 5 MG TAB PO PRN (21:56)
[2017-08-11] MEDS: HYDROmorphONE/DILAUDID 4 MG TAB PO PRN ×8 (01:28→22:48)
[2017-08-11] MEDS: NICOTINE 21 MG/24 HR PATCH TD SCH (07:33)
[2017-08-11] MEDS: ENOXAPARIN 40 MG/0.4 ML SYR SC SCH (07:34)
[2017-08-11] MEDS: LORazepam 1 MG TAB PO PRN ×2 (07:34→16:36)
[2017-08-11] MEDS: SPIRONOLACTONE 50 MG TAB PO SCH (07:35)
[2017-08-11] MEDS: FLUTICASONE/SALMETER 250/50MCG DISKUS IH SCH ×2 (09:03→20:58)
[2017-08-11] MEDS: ALBUTEROL 60 PUFFS/8 GM MDI IH PRN ×2 (09:06→20:58)
[2017-08-11] MEDS: DOCUSATE SODIUM 100 MG CAP PO SCH ×2 (09:38→22:04)
[2017-08-11] MEDS: ZOLPIDEM TARTRATE 5 MG TAB PO PRN (21:33)
[2017-08-12] MEDS: LORazepam 1 MG TAB PO PRN ×2 (01:55→09:46)
[2017-08-12] MEDS: HYDROmorphONE/DILAUDID 4 MG TAB PO PRN ×5 (01:55→15:07)
[2017-08-12] MEDS: FLUTICASONE/SALMETER 250/50MCG DISKUS IH SCH (08:46)
[2017-08-12] MEDS: ALBUTEROL 60 PUFFS/8 GM MDI IH PRN (08:46)
[2017-08-12] MEDS: SPIRONOLACTONE 50 MG TAB PO SCH (08:50)
[2017-08-12] MEDS: NICOTINE 21 MG/24 HR PATCH TD SCH (08:51)
[2017-08-12] MEDS: ENOXAPARIN 40 MG/0.4 ML SYR SC SCH (08:52)
[2017-08-12] MEDS: DOCUSATE SODIUM 100 MG CAP PO SCH (08:54)
[2017-08-12 08:57] VITALS: BP 145/80
--- NOTE | 2017-08-12 10:14 | SOAPPROG ---
SOAP Progress Note Assessment/Plan: Assessment/Plan: 52 Y M s/p L BKA. Wounds healing well. Dispo: awaiting placement. possibly to [facility] today. D/w'ed case management. S: no complaints. per RN, pt able to transfer self to . O: alert, nad, appears very comfortable. no wob rrr abd soft clean, suture line intact s drainage or erythema. 08/12/17 10:13 Objective: Vital Signs Temp Pulse Resp BP Pulse Ox 36.6 C 80 14 145/80 H 93 08/12/17 08:00 08/12/17 08:45 08/12/17 08:45 08/12/17 08:00 08/12/17 08:45 Laboratory Results 07/31/17 04:40 07/31/17 04:40 08/11/17 08/12/17 08/13/17 05:59 05:59 05:59 Intake Total 1500 Output Total 1625 Balance -125 ICD10 Worksheet Patient Problems: Problems Problem Status Onset Situational depression Acute Seizure Acute Alcohol withdrawal Acute Abdominal pain Acute Alcohol intoxication Acute Reversible airways disease Acute Lactic acidosis Acute Multiple abrasions Acute Neck strain Acute Strain of mid-back Acute COPD (chronic obstructive pulmonary disease) Acute Alcohol abuse Acute Facial laceration Acute Laceration of eyebrow, left Acute Atrial fibrillation with RVR Acute Cold exposure Acute Dehydration Acute Frostbite Acute Cold exposure Acute Back pain Acute Lower extremity cellulitis Acute Frostbite of both great toes Acute
--- NOTE | 2017-08-12 15:21 | ASMTCMCOM ---
CM Note CM Note Notes: patient medically cleared for discharge to SNF. [facility] has cleared him. Call from [facility] at [facility], transport arranged via [facility] for wheelchair lease picker at 4:30. patient aware, Final orders via allscripts. RN has number to call report. CM available should other needs arise. Plan: To [facility] Date Signed: 08/12/2017 02:41 PM Electronically Signed By:Ana Quiros RN
--- NOTE | 2017-08-21 08:26 | GDS ---
[f rep st] DISCHARGE SUMMARY DISCHARGE DIAGNOSIS: Nonhealing calcaneal ulcer with bone exposure and gangrene. OTHER DIAGNOSES: Include history of alcoholism, attention deficit hyperactivity disorder, chronic ba ck pain, chronic obstructive pulmonary disease, hypertension, opioid and benzodiazepine dependency, h istory of rib fracture, history of toe amputations, knee surgery, bariatric surgery, cholecystectomy, and lumbar fusion. PROCEDURES: Left below-knee amputation. INTRAOPERATIVE FINDINGS: Patient was found to have viable bleeding tissue at the amputation level. There was a large amount of muscle for amputation flap. HOSPITAL COURSE: Mr. Hogan is a 52-year-old homeless male with a history of alcoholism, and opio id and benzodiazepine dependency, who initially was found to have frostbite and underwent toe amputat ions. He developed a calcaneal ulcer. He was noncompliant with followup and ultimately developed florian ne exposure with possible osteomyelitis. He underwent left below-knee amputation as described above. The procedure was uncomplicated and he tolerated it well. Patient's postoperative course was uneventful. He did have some pain control issues which eventually resolved with adjustment of his medications. He had a prolonged hospital stay only for placement is sues. DISCHARGE INSTRUCTIONS: Ultimately, he was accepted to [facility] and was discharged there in stable condition with plans for outpatient followup. At the time of discharge his wound was healing very w ell, and he was quite adept at transferring himself from bed to wheelchair without support. /[id number]/MODL
== END 2017-08-12 16:21 | DRG 580 ==
LOC: F3N 08:21 → F3E 14:10
PROVIDERS: ADMIT Surgery; ATTEND Surgery
PROC: 0Y6G0ZZ Detachment at Left Knee Region, Open Approach (ICD-10-PCS; principal; 2017-07-30 10:15)
DX: L97.424 Non-pressure chronic ulcer of left heel and midfoot with necrosis of bone (principal); M86.171 Other acute osteomyelitis, right ankle and foot; I96 Gangrene, not elsewhere classified; F10.29 Alcohol dependence with unspecified alcohol-induced disorder; G89.29 Other chronic pain; J44.9 Chronic obstructive pulmonary disease, unspecified; F90.9 Attention-deficit hyperactivity disorder, unspecified type; I10 Essential (primary) hypertension; F43.10 Post-traumatic stress disorder, unspecified; X31.XXXS Exposure to excessive natural cold, sequela; Z59.0 Homelessness; Z89.422 Acquired absence of other left toe(s); Z91.14 Patient's other noncompliance with medication regimen
CPT/HCPCS: 97110-GP; 97116-GP; 97162-GP; 97166-GO; 97530-GO; 97530-GP; 97535-GO; G8978-GP-CJ; G8978-GP-CK; G8979-GP-CI; G8979-GP-CJ; G8987-GO-CL; G8988-GO-CJ; J0690; J1100; J1170; J1650; J1885; J2250; J2405; J2704; J2710; J3010; J7613

== ENCOUNTER 2017-10-09 00:37 | Emergency (ER) | payer OTHER, MEDICAID ==
[2017-10-09] MEDS ORDERED: ONDANSETRON 4 MG/2 ML VIAL IVP ONE (02:49)
[2017-10-09] MEDS ORDERED: NS 1,000 ML IV ONE (02:49)
--- NOTE | 2017-10-09 02:53 | EDPHY ---
H & P Stated Complaint: PAIN TO AMPUTATION SITE, HX OF MRSA Time Seen by Provider: 10/09/17 02:40 HPI/ROS: HPI The patient presents with abdominal pain and nausea for the last 1-2 days which has been constant and getting progressively worse. He has not been able to drink some fluids, however he has had a difficult time tolerating solids. He has not had a fever. Of note, he was in the emergency room less than 24 hr ago for MRSA positive culture of his left leg BKA. He was initially on Keflex and ciprofloxacin, however in the emergency department we switched him to doxycycline. He has had just 1 dose of this medication. Triage note said that he was here for leg pain, however the patient tells me that his left leg is actually feeling much better and it is his abdominal pain that has brought him into the emergency department. He does have a history of gastric bypass operation as well as a cholecystectomy.. REVIEW OF SYSTEMS Constitutional: No fever, no chills. Eyes: No discharge. ENT: No sore throat. Cardiovascular: No chest pain, no palpitations. Respiratory: No cough, no shortness of breath. Gastrointestinal: See HPI Genitourinary: No hematuria. Musculoskeletal: No back pain. Skin: No rashes. Neurological: No headache. PMHx: See below Soc Hx: Has a fiancee, says that he is no longer drinking alcohol PHYSICAL General Appearance: Alert, no distress Eyes: Pupils equal and round no pallor or injection ENT, Mouth: Mucous membranes moist Respiratory: There are no retractions, lungs are clear to auscultation Cardiovascular: Regular rate and rhythm Gastrointestinal: Abdomen is soft and tender in the right lower quadrant, no masses, bowel sounds normal Neurological: A&O, moves all extremities Skin: Warm and dry, no rashes Musculoskeletal: Left leg BKA a with no tenderness, warmth, edema, there is a small amount of blood on dressing in place Extremities: symmetrical, full range of motion Psychiatric: Patient is oriented X 3, there is no agitation - Personal History Current Tetanus/Diphtheria Vaccine: Yes Current Tetanus Diphtheria and Acellular Pertussis (TDAP): Yes Tetanus Vaccine Date: 2015 - Medical/Surgical History Hx Asthma: No Hx Chronic Respiratory Disease: Yes Hx Diabetes: No Hx Cardiac Disease: No Hx Renal Disease: No Hx Cirrhosis: No Hx Alcoholism: Yes Hx HIV/AIDS: No Hx Splenectomy or Spleen Trauma: No Other PMH: PMH: htn, depression/anxiety,chronic back pain, seizures. surg-S1-L2 -fusion,rolanda,left knee meniscus repair,gastric bypass, COPD, epilepsy, ETOH abuse - Social History Smoking Status: Heavy smoker Constitutional: Initial Vital Signs Temperature (C) 36.7 C 10/09/17 00:45 Heart Rate 101 H 10/09/17 00:45 Respiratory Rate 18 10/09/17 00:45 Blood Pressure 121/82 H 10/09/17 00:45 O2 Sat (%) 96 10/09/17 00:45 O2 Delivery Mode Room Air Allergies/Adverse Reactions: gabapentin Allergy (Verified 10/09/17 00:54) bee stings Allergy (Uncoded 10/09/17 00:54) Anaphylaxis Home Medications: Medication Instructions Recorded Albuterol [Proventil Inhaler HFA 2 puffs IH Q4H PRN 03/14/17 (*)] Fluticasone/Salmeter 250/50Mcg 1 puffs IH BID 07/29/17 [Advair 250/50 (*)] Promethazine HCl [Phenergan 25mg 25 mg PO Q8HRS PRN 07/29/17 (*)] Doxycycline Hyclate 100 mg PO BID #20 capsule 10/08/17 Medical Decision Making Differential Diagnosis: 52-year-old male with multiple medical problems including left-sided BKA performed 2 months ago now with wound culture positive for MRSA starting on doxycycline, alcohol abuse, presents from home with 1-2 days of abdominal pain associated with nausea. On exam, he has normal vital signs, he does have tenderness of his right abdomen. He does have a history of gastric bypass. Differential diagnosis includes internal hernia, appendicitis, gastritis. The patient was given his usual pain medication with improvement in his symptoms. He has told the nurse that he has this pain intermittently ever since his gastric bypass in it is no worse than his usual. He says he has gotten in a fight with his partner and she has all of his pain medications so he actually just needs his pain medication and then he thinks he will feel better. I explained to him that we cannot give medication for chronic pain and that he will have to work it out with his partner. He says he also is out of wound care supplies and is asking for some of these, I am happy to provide him with a few days of supplies. He is happy to be discharged at this point. - Data Points Medications Given: Discontinued Medications Oxycodone HCl (Oxycodone Ir) 10 mg PO EDNOW ONE Stop: 10/09/17 03:13 Last Admin: 10/09/17 03:15 Dose: 10 mg Departure - Departure Disposition: Home, Routine, Self-Care Clinical Impression: BKA stump complication Abdominal pain Qualifiers: Abdominal location: generalized Qualified Code(s): R10.84 - Generalized abdominal pain Condition: Good Instructions: Acute Abdominal Pain (ED) Additional Instructions: Please follow-up with your primary care doctor in 1-2 days. Referrals: Ni Bennett PA [Primary Care Provider] - As per Instructions
[2017-10-09] MEDS ORDERED: oxyCODONE IR 5 MG TAB PO ONE (03:12)
[2017-10-09] MEDS ORDERED: oxyCODONE IR 5 MG TAB ONE (03:12)
[2017-10-09] MEDS ORDERED: IOPAMIDOL (ISOVUE-300) 100 ML BTL ONE (03:15)
[2017-10-09] MEDS ORDERED: OXYCODONE/APAP 5/325MG PREPACK#4 BTL TAKEHOME ONE (04:03)
[2017-10-09 04:21] VITALS: BP 116/89
== END 2017-10-09 04:19 | disposition home or self-care (01) ==
LOC: EDUNIT#
DX: R10.9 Unspecified abdominal pain (principal); R11.0 Nausea; Z22.322 Carrier or suspected carrier of Methicillin resistant Staphylococcus aureus; F17.200 Nicotine dependence, unspecified, uncomplicated; Z89.512 Acquired absence of left leg below knee
CPT/HCPCS: Q9967

== ENCOUNTER 2018-01-14 12:08 | Emergency (ER) | payer OTHER, MEDICAID ==
[2018-01-14 12:15] VITALS: BP 123/73
== END 2018-01-14 12:54 | disposition left against medical advice (07) ==
DX: Z53.21 Procedure and treatment not carried out due to patient leaving prior to being seen by health care provider (principal)

== ENCOUNTER 2018-01-26 18:19 | Emergency (ER) | payer OTHER, MEDICAID ==
--- NOTE | 2018-01-26 18:29 | EDPHY ---
H & P - Personal History Tetanus Vaccine Date: 2015 - Medical/Surgical History Hx Asthma: No Hx Chronic Respiratory Disease: Yes Hx Diabetes: No Hx Cardiac Disease: No Hx Renal Disease: No Hx Cirrhosis: No Hx Alcoholism: Yes Hx HIV/AIDS: No Hx Splenectomy or Spleen Trauma: No Other PMH: PMH: htn, depression/anxiety,chronic back pain, seizures. surg-S1-L2 -fusion,rolanda,left knee meniscus repair,gastric bypass, COPD, epilepsy, ETOH abuse - Social History Smoking Status: Light smoker Time Seen by Provider: 01/26/18 18:23 HPI/ROS: CHIEF COMPLAINT: Klonopin overdose Limitations: Unresponsive HISTORY OF PRESENT ILLNESS: 52-year-old male with alcoholism presents after a Klonopin overdose. PD was initially called for a person causing a disturbance. On PD arrival, the patient was combative. On EMS arrival, the patient was initially combative and then gradually became unresponsive. In D bottle of Klonopin was found next to the patient. This bottle contained 21 tablets of Klonopin, prescribed yesterday. The patient apparently told someone that he took the entire bottle of Klonopin as well as alcohol today. An IO was established by EMS and lidocaine and Zofran IO given. He is unable to provide any clinical history. REVIEW OF SYSTEMS: Unable to obtain (Afua Cano) - Social History Additional Social History: Homeless (Afua Cano) - Physical Exam Exam: General Appearance: Obtunded, opens eyes to painful stimuli Eyes: Pupils equal and round, 2 mm ENT, Mouth: Mucous membranes moist Neck: Normal inspection Respiratory: Good air exchange, Lungs are clear to auscultation Cardiovascular: Regular rate and rhythm Gastrointestinal: Abdomen is soft Neurological: Obtunded, moves all extremities, localizes pain Skin: Warm and dry Extremities: Normal inspection Psychiatric: Unable to determine (Afua Cano) Constitutional: Initial Vital Signs Temperature (C) 35 C L 01/26/18 18:24 Heart Rate 80 01/26/18 18:24 Respiratory Rate 12 01/26/18 18:24 Blood Pressure 108/72 01/26/18 18:24 O2 Sat (%) 98 01/26/18 18:24 O2 Delivery Mode Room Air O2 (L/minute) 4 Allergies/Adverse Reactions: gabapentin Allergy (Verified 01/14/18 12:15) bee stings Allergy (Uncoded 01/14/18 12:15) Anaphylaxis Home Medications: Medication Instructions Recorded Albuterol [Proventil Inhaler HFA 2 puffs IH Q4H PRN 03/14/17 (*)] Fluticasone/Salmeter 250/50Mcg 1 puffs IH BID 07/29/17 [Advair 250/50 (*)] Promethazine HCl [Phenergan 25mg 25 mg PO Q8HRS PRN 07/29/17 (*)] Doxycycline Hyclate 100 mg PO BID #20 capsule 10/08/17 Medical Decision Making - Diagnostics EKG Interpretation: EKG interpreted by me reveals normal sinus rhythm, rate 71, low voltage, no ST or T segment changes. Interpretation: Borderline EKG (Afua Cano) ED Course/Re-evaluation: This patient presents after a Klonopin overdose and alcohol intoxication. He has a maintaining a normal oxygen saturation on 100% non-rebreather. He was quickly transitioned to a nasal cannula and continued to maintain a normal oxygen saturation and had an adequate respiratory effort. He is on an M1 hold by PD for suicidal attempt. 8:40pm: remains obtunded, arouses to painful stimuli. Will continue to observe. Will sign over to Dr. Catherine at shift change. (Afua Cano) 0534: Patient on M1 home. No acute events overnight he has been sleeping. Will need mental health evaluation this morning. Signed over at 7:[address] Cedillo. (Yang Solomon) 8:20 a.m. the patient has been evaluated by Mental Health. He does not meet hold criteria. He has outstanding warrants and will be taken to retirement. (Fredy Cedillo) Differential Diagnosis: Differential diagnosis includes though it is not limited to respiratory failure , acute psychosis, self-injury, alcohol withdrawal. (Afua Cano) - Data Points Laboratory Results: Laboratory Results 01/26/18 18:55 01/26/18 18:55 01/27/18 01:23 Urine Opiates Screen NON-NEGATIVE H (NEGATIVE) Urine Barbiturates NEGATIVE (NEGATIVE) Ur Phencyclidine Scrn NEGATIVE (NEGATIVE) Ur Amphetamine Screen NEGATIVE (NEGATIVE) U Benzodiazepines Scrn NEGATIVE (NEGATIVE) Urine Cocaine Screen NEGATIVE (NEGATIVE) U Marijuana (THC) Screen NEGATIVE (NEGATIVE) Medications Given: Discontinued Medications Acetaminophen (Tylenol) 650 mg PO EDNOW ONE Stop: 01/27/18 06:08 Last Admin: 01/27/18 06:09 Dose: 650 mg Ibuprofen (Motrin) 600 mg PO EDNOW ONE Stop: 01/27/18 06:06 Last Admin: 01/27/18 06:08 Dose: Not Given Ondansetron HCl (Zofran) 4 mg IVP EDNOW ONE Stop: 01/27/18 01:29 Last Admin: 01/27/18 01:39 Dose: 4 mg Point of Care Test Results: Chemistry 01/26/18 18:54 POC Sodium 141 mEq/L mEq/L (135-145) POC Potassium 3.6 mEq/L mEq/L (3.3-5.0) POC Chloride 103 mEq/L mEq/L (97-110) POC BUN 13 mg/dL mg/dL (7-23) POC Creatinine 1.3 mg/dL mg/dL (0.7-1.3) POC Glucose 96 mg/dL mg/dL (70-100) ISTAT H&H 01/26/18 18:54 POC Hgb 13.9 gm/dL gm/dL (13.7-17.5) POC Hct 41 % % (40-51) Departure - Departure Disposition: Law Enforcement/Court/Penitentiary Clinical Impression: Intentional overdose of drug in tablet form, Polysubstance abuse Alcohol intoxication Qualifiers: Complication of substance-induced condition: uncomplicated Qualified Code(s): F10.920 - Alcohol use, unspecified with intoxication, uncomplicated Condition: Fair Instructions: Polysubstance Abuse (ED) Referrals: Patient,NotPresent [Unknown] - As per Instructions
[2018-01-26 19:07] LABS: PLATELET COUNT 295 10^3/uL (150-400)
--- NOTE | 2018-01-26 21:03 | CPEKG ---
Test Reason : OPEN Blood Pressure : / mmHG Vent. Rate : 071 BPM Atrial Rate : 071 BPM P-R Int : 157 ms QRS Dur : 097 ms QT Int : 404 ms P-R-T Axes : 052 057 075 degrees QTc Int : 439 ms Sinus rhythm Low voltage, precordial leads Confirmed by Afua Cano ([id number]) on 01/26/2018 9:02:51 PM Referred By: Confirmed By:Afua Cano
[2018-01-27] MEDS ORDERED: ONDANSETRON 4 MG/2 ML VIAL IVP ONE (01:28)
[2018-01-27] MEDS ORDERED: IBUPROFEN 600 MG TAB PO ONE ×2 (06:05)
[2018-01-27] MEDS ORDERED: ACETAMINOPHEN 325 MG TAB PO ONE (06:07)
[2018-01-27] MEDS ORDERED: ACETAMINOPHEN 325 MG TAB ONE (06:08)
[2018-01-27 09:02] VITALS: BP 135/85
== END 2018-01-27 08:59 ==
LOC: EDUNIT#
DX: T42.4X2A Poisoning by benzodiazepines, intentional self-harm, initial encounter (principal); F19.10 Other psychoactive substance abuse, uncomplicated; F10.920 Alcohol use, unspecified with intoxication, uncomplicated; J44.9 Chronic obstructive pulmonary disease, unspecified; I10 Essential (primary) hypertension; F32.9 Major depressive disorder, single episode, unspecified; F41.9 Anxiety disorder, unspecified; M54.9 Dorsalgia, unspecified; G89.29 Other chronic pain; G40.909 Epilepsy, unspecified, not intractable, without status epilepticus; Z59.0 Homelessness
CPT/HCPCS: 71045; 93005; 96374; 99285; J2405; 80305; 82435-PO; 82565-PO; 82947-PO; 84132-PO; 84295-PO; 84520-PO; 85014-PO; G0480

== ENCOUNTER 2018-02-26 17:57 | Emergency (ER) | payer OTHER, MEDICAID ==
--- NOTE | 2018-02-26 18:00 | EDPHY ---
H & P Time Seen by Provider: 02/26/18 17:59 HPI/ROS: CHIEF COMPLAINT: Right-sided chest pain HISTORY OF PRESENT ILLNESS: Started while driving at 4:45 p.m., right-sided. Arrives by EMS. Patient says he developed sudden discomfort and pain all across his chest which then localized to the right side. He had some shortness of breath in the car. He says he feels better now and still present but almost gone. Not associated with coughing or nausea or diaphoresis or radiation. No weakness or numbness in extremities. A little bit worse with breathing and movement. Not exertional. REVIEW OF SYSTEMS: Eye: no change in vision ENT: no sore throat Cardiac: HPI no palpitations or syncope Pulmonary: no cough or SOB Abdomen: no vomiting, diarrhea, abdominal pain Musculoskeletal: He has had some pain in his stump for his left leg prosthesis where it attaches because he wore it for 6 hr today which is longer than usual. Skin: no rash Neuro: no headache Constitutional: no fever : no urinary symptoms A comprehensive 10 point review of systems is otherwise negative aside from elements mentioned in the history of present illness. PAST MEDICAL HISTORY: Discharge summary dated 08/12/2017 personally reviewed includes alcoholism, attention deficit hyperactivity disorder, chronic back pain , cholecystectomy, spine fusion, bariatric surgery, left below-knee amputation, COPD, hypertension. Social history: Still smokes cigarettes General Appearance: Alert and conversant, cooperative. Eyes: No scleral icterus. ENT, Mouth: Normal mucous membranes. Respiratory: Bilateral expiratory wheezing but speaks in full sentences, no focal lung sounds. Cardiovascular: Regular rate and rhythm. Gastrointestinal: Abdomen is soft and non tender. Neurological: Alert, face symmetric, follows commands. Skin: Warm and dry, no rashes. Musculoskeletal: No peripheral edema on the right leg, left leg prosthesis present. No calf tenderness. Psychiatric: Not agitated. Emergency Department course/MDM: Differential diagnosis considered for chest pain including but not limited to myocardial ischemia, aortic dissection, pericarditis, pulmonary embolus, chest wall pain, pleural inflammation and pulmonary infectious causes. 12-lead EKG interpreted by me; official reading is in computer system. My interpretation is sinus rhythm with low precordial voltage but no ischemic changes. Rate 83. Plan for chest x-ray, troponin and D-dimer. Low pretest clinical suspicion for pulmonary embolism. Patient received his usual 10 mg oral oxycodone for left leg pain at his stump site. 1922: Patient has a HEART score of 2: 0 points for history, 0 points for EKG, 1 for age, 1 for risk factor of hypertension. 0 for EKG and troponin. The shared decision-making instrument was personally reviewed with the patient by myself, including the risk of MACE. Patient state understanding and agreement with the chosen disposition. He would like to be discharged now with outpatient follow-up which I think is reasonable. Smoking Status: Light smoker Constitutional: Initial Vital Signs Temperature (C) 37.2 C 02/26/18 18:00 Heart Rate 83 02/26/18 18:00 Respiratory Rate 16 02/26/18 18:00 Blood Pressure 135/87 H 02/26/18 18:00 O2 Sat (%) 95 02/26/18 18:00 O2 Delivery Mode Room Air Allergies/Adverse Reactions: gabapentin Allergy (Verified 02/26/18 17:59) bee stings Allergy (Uncoded 01/14/18 12:15) Anaphylaxis Home Medications: Medication Instructions Recorded Albuterol [Proventil Inhaler HFA 2 puffs IH Q4H PRN 03/14/17 (*)] Fluticasone/Salmeter 250/50Mcg 1 puffs IH BID 07/29/17 [Advair 250/50 (*)] Promethazine HCl [Phenergan 25mg 25 mg PO Q8HRS PRN 07/29/17 (*)] Doxycycline Hyclate 100 mg PO BID #20 capsule 10/08/17 Medical Decision Making - Diagnostics Imaging Results: Imaging Impressions Chest X-Ray 02/26/18 18:02 Impression: There is no acute abnormality. Imaging: I viewed and interpreted images myself - Data Points Laboratory Results: Laboratory Results 02/26/18 18:15 02/26/18 18:15 02/26/18 02/26/18 02/26/18 18:15 18:15 18:15 WBC RBC Hgb Hct MCV MCH MCHC RDW Plt Count MPV Neut % (Auto) Lymph % (Auto) [place] % (Auto) Eos % (Auto) Baso % (Auto) Nucleat RBC Rel Count Absolute Neuts (auto) Absolute Lymphs (auto) Absolute Monos (auto) Absolute Eos (auto) Absolute Basos (auto) Absolute Nucleated RBC Immature Gran % Immature Gran # D-Dimer 0.39 ug/mLFEU ug/mLFEU (0.00-0.50) Sodium 134 mEq/L L mEq/L (135-145) Potassium 4.6 mEq/L mEq/L (3.5-5.2) Chloride 108 mEq/L mEq/L (97-110) Carbon Dioxide 19 mEq/l L mEq/l (22-31) Anion Gap 7 mEq/L mEq/L (6-14) BUN 24 mg/dL H mg/dL (7-23) Creatinine 1.0 mg/dL mg/dL (0.7-1.3) Estimated GFR > 60 Glucose 83 mg/dL mg/dL (70-100) Calcium 8.7 mg/dL mg/dL (8.5-10.4) POC Troponin I 0.02 ng/mL ng/mL (0.00-0.08) 02/26/18 18:15 WBC 6.90 10^3/uL 10^3/uL (3.80-9.50) RBC 4.64 10^6/uL 10^6/uL (4.40-6.38) Hgb 10.1 g/dL L g/dL (13.7-17.5) Hct 32.8 % L % (40.0-51.0) MCV 70.7 fL L fL (81.5-99.8) MCH 21.8 pg L pg (27.9-34.1) MCHC 30.8 g/dL L g/dL (32.4-36.7) RDW 19.4 % H % (11.5-15.2) Plt Count 269 10^3/uL 10^3/uL (150-400) MPV 10.3 fL fL (8.7-11.7) Neut % (Auto) 61.6 % % (39.3-74.2) Lymph % (Auto) 28.7 % % (15.0-45.0) [place] % (Auto) 7.1 % % (4.5-13.0) Eos % (Auto) 1.6 % % (0.6-7.6) Baso % (Auto) 0.6 % % (0.3-1.7) Nucleat RBC Rel Count 0.0 % % (0.0-0.2) Absolute Neuts (auto) 4.25 10^3/uL 10^3/uL (1.70-6.50) Absolute Lymphs (auto) 1.98 10^3/uL 10^3/uL (1.00-3.00) Absolute Monos (auto) 0.49 10^3/uL 10^3/uL (0.30-0.80) Absolute Eos (auto) 0.11 10^3/uL 10^3/uL (0.03-0.40) Absolute Basos (auto) 0.04 10^3/uL 10^3/uL (0.02-0.10) Absolute Nucleated RBC 0.00 10^3/uL 10^3/uL (0-0.01) Immature Gran % 0.4 % % (0.0-1.1) Immature Gran # 0.03 10^3/uL 10^3/uL (0.00-0.10) D-Dimer Sodium Potassium Chloride Carbon Dioxide Anion Gap BUN Creatinine Estimated GFR Glucose Calcium POC Troponin I Medications Given: Discontinued Medications Oxycodone HCl (Oxycodone Ir) 10 mg PO EDNOW ONE Stop: 02/26/18 18:32 Last Admin: 02/26/18 18:34 Dose: 10 mg Point of Care Test Results: Chemistry 02/26/18 18:15 POC Troponin I 0.02 ng/mL ng/mL (0.00-0.08) Departure - Departure Disposition: Home, Routine, Self-Care Clinical Impression: Chest pain Qualifiers: Chest pain type: unspecified Qualified Code(s): R07.9 - Chest pain, unspecified Condition: Good Instructions: Chest Pain (ED) Additional Instructions: Please follow-up with Cardiology or your doctor in the next 1-2 days. Referrals: Skyler Gunter MD [Medical Doctor] - 1-2 days without fail Preston Thomas MD [Medical Doctor] - As per Instructions
--- NOTE | 2018-02-26 18:11 | CPEKG ---
Test Reason : OPEN Blood Pressure : / mmHG Vent. Rate : 083 BPM Atrial Rate : 083 BPM P-R Int : 150 ms QRS Dur : 081 ms QT Int : 351 ms P-R-T Axes : 034 050 061 degrees QTc Int : 413 ms Sinus rhythm Low voltage, precordial leads Confirmed by Jesus Paul ([id number]) on 02/26/2018 6:11:02 PM Referred By: Confirmed By:Jesus Paul
[2018-02-26] MEDS ORDERED: oxyCODONE IR 5 MG TAB PO ONE (18:31)
[2018-02-26 18:57] LABS: PLATELET COUNT 269 10^3/uL (150-400)
[2018-02-26 19:54] VITALS: BP 130/77
== END 2018-02-26 20:06 | disposition home or self-care (01) ==
LOC: EDUNIT#
DX: R07.9 Chest pain, unspecified (principal)
CPT/HCPCS: 84484-ER

== ENCOUNTER 2018-05-20 12:42 | Emergency (ER) | payer MEDICAID, OTHER ==
[2018-05-20 12:52] VITALS: BP 172/145
--- NOTE | 2018-05-20 13:23 | EDPHY ---
H & P Stated Complaint: intoxication Time Seen by Provider: 05/20/18 13:09 HPI/ROS: CHIEF COMPLAINT: Alcohol intoxication Limitations: Unable to answer questions HISTORY OF PRESENT ILLNESS: A 53-year-old male with alcoholism presents with alcohol intoxication. He was found outside asleep next to [employer]. A bystander flagged down an ambulance and he was brought here for alcohol intoxication. No signs of trauma. REVIEW OF SYSTEMS: Unable to obtain - Personal History Tetanus Vaccine Date: 2015 - Medical/Surgical History Hx Asthma: No Hx Chronic Respiratory Disease: Yes Hx Diabetes: No Hx Cardiac Disease: No Hx Renal Disease: No Hx Cirrhosis: No Hx Alcoholism: Yes Hx HIV/AIDS: No Hx Splenectomy or Spleen Trauma: No Other PMH: PMH: htn, depression/anxiety,chronic back pain, seizures. surg-S1-L2 -fusion,rolanda,left knee meniscus repair,gastric bypass, COPD, epilepsy, ETOH abuse - Social History Smoking Status: Light smoker Alcohol Use: Heavy Drug Use: None - Physical Exam Exam: General Appearance: Obtunded, arouses to tactile stimuli Eyes: Pupils dilated, no nystagmus ENT, Mouth: Mucous membranes moist, adentulous Neck: normal inspection Respiratory: Scattered expiratory wheezing anteriorly Cardiovascular: Regular rate and rhythm Gastrointestinal: Abdomen is soft, no apparent tenderness Neurological: Drowsy, non-focal exam Skin: Warm and dry Extremities: left BKA Psychiatric: Flat affect Constitutional: Initial Vital Signs Heart Rate 108 H 05/20/18 12:50 Respiratory Rate 18 05/20/18 12:50 Blood Pressure 172/145 H 05/20/18 12:50 O2 Sat (%) 96 05/20/18 12:50 O2 Delivery Mode Room Air Allergies/Adverse Reactions: gabapentin Allergy (Verified 05/20/18 18:30) bee stings Allergy (Uncoded 05/20/18 16:21) Anaphylaxis Home Medications: Medication Instructions Recorded Albuterol [Proventil Inhaler HFA 2 puffs IH Q4H PRN 03/14/17 (*)] Fluticasone/Salmeter 250/50Mcg 1 puffs IH BID 07/29/17 [Advair 250/50 (*)] Promethazine HCl [Phenergan 25mg 25 mg PO Q8HRS PRN 07/29/17 (*)] QUEtiapine FUMARATE [Seroquel 200 200 mg PO HS 05/20/18 mg (*)] clonazePAM [Clonazepam] 1 mg PO BID 05/20/18 oxyCODONE IR [Oxycodone Ir (*)] 10 mg PO BID 05/20/18 Medical Decision Making ED Course/Re-evaluation: This pt presents with alcohol intoxication. No evidence of trauma. Will observe. On discharge, the patient was able to walk with a steady gait using crutches and his prosthetic leg. Plan to go to the [facility]. Departure - Departure Disposition: Home, Routine, Self-Care Clinical Impression: Alcohol intoxication Qualifiers: Complication of substance-induced condition: uncomplicated Qualified Code(s): F10.920 - Alcohol use, unspecified with intoxication, uncomplicated Condition: Good Instructions: Alcohol Intoxication (ED) Referrals: [facility] Detox 24 Hours [Outside] - As per Instructions
== END 2018-05-20 15:48 | disposition home or self-care (01) ==
LOC: EDUNIT#
DX: F10.920 Alcohol use, unspecified with intoxication, uncomplicated (principal); I10 Essential (primary) hypertension; F32.9 Major depressive disorder, single episode, unspecified; F41.9 Anxiety disorder, unspecified; G89.29 Other chronic pain; J44.9 Chronic obstructive pulmonary disease, unspecified; G40.909 Epilepsy, unspecified, not intractable, without status epilepticus; F17.200 Nicotine dependence, unspecified, uncomplicated; Z98.1 Arthrodesis status; Z98.84 Bariatric surgery status

== ENCOUNTER 2018-05-20 16:05 | Inpatient (IN) | payer OTHER ==
[2018-05-20] MEDS ORDERED: IBUPROFEN 600 MG TAB PO ONE (16:52)
--- NOTE | 2018-05-20 17:54 | EDPHY ---
H & P Stated Complaint: R hip pain Time Seen by Provider: 05/20/18 16:51 HPI/ROS: CHIEF COMPLAINT: left hip pain HISTORY OF PRESENT ILLNESS: A 53-year-old male with alcoholism presents with left hip pain. He was seen earlier in the emergency department by me for alcohol intoxication. He felt ready for d/c, was felt to have a stable gait using his crutches and was discharged. After discharge, he tripped and fell, landing directly onto his left hip. Immediate onset of moderate left hip pain and difficulty ambulating. Pain increases with movement. Remained alert after the fall, no seizure activity. He has a left BKA secondary to frostbite and a new prosthesis. He is currently using crutches to ambulate while he gets used to his new prosthesis. Denies other injuries. He did not hit his head; no ZARATE or neck pain. REVIEW OF SYSTEMS: complete 10 point ROS reviewed and is negative except for the noted elements in the HPI - Personal History Current Tetanus/Diphtheria Vaccine: Yes Current Tetanus Diphtheria and Acellular Pertussis (TDAP): Yes Tetanus Vaccine Date: 2015 - Medical/Surgical History Hx Asthma: No Hx Chronic Respiratory Disease: Yes Hx Diabetes: No Hx Cardiac Disease: No Hx Renal Disease: No Hx Cirrhosis: No Hx Alcoholism: Yes Hx HIV/AIDS: No Hx Splenectomy or Spleen Trauma: No Other PMH: PMH: Alcoholism, htn, depression/anxiety,COPD, seizures. surg- gastric bypass - Family History Significant Family History: No pertinent family hx - Social History Smoking Status: Current every day smoker Alcohol Use: Heavy Drug Use: None - Physical Exam Exam: General Appearance: Alert, cooperative Head: Atraumatic Eyes: No conjunctival erythema, PERRLA, EOMI ENT, Mouth: no oral trauma, no bony tenderness Neck: Nontender, full range of motion without pain Respiratory: No chest wall tenderness, lungs clear bilaterally Cardiovascular: Regular rate and rhythm Abdomen: Abdomen is soft and nontender Skin: No lacerations, no abrasions Back: No midline T/L/S tenderness Extremities: Pelvis is stable and nontender; left hip tenderness, leg is externally rotated Neurological: A&Ox3, normal motor function, normal sensory exam, cranial nerves intact Psychiatric: Mood and affect normal Constitutional: Initial Vital Signs Temperature (C) 37 C 05/20/18 16:21 Heart Rate 91 05/20/18 16:21 Respiratory Rate 16 05/20/18 16:21 Blood Pressure 156/109 H 05/20/18 16:21 O2 Sat (%) 94 05/20/18 16:21 O2 Delivery Mode Nasal Cannula O2 (L/minute) 2 Allergies/Adverse Reactions: gabapentin Allergy (Verified 05/20/18 18:30) bee stings Allergy (Uncoded 05/20/18 16:21) Anaphylaxis Home Medications: Medication Instructions Recorded Albuterol [Proventil Inhaler HFA 2 puffs IH Q4H PRN 03/14/17 (*)] Fluticasone/Salmeter 250/50Mcg 1 puffs IH BID 07/29/17 [Advair 250/50 (*)] Promethazine HCl [Phenergan 25mg 25 mg PO Q8HRS PRN 07/29/17 (*)] QUEtiapine FUMARATE [Seroquel 200 200 mg PO HS 05/20/18 mg (*)] clonazePAM [Clonazepam] 1 mg PO BID 05/20/18 oxyCODONE IR [Oxycodone Ir (*)] 10 mg PO BID 05/20/18 Medical Decision Making - Diagnostics EKG Interpretation: EKG interpreted by me reveals NSR, rate 73, low voltage, no St/T changes. Interpretation: abnormal EKG Imaging Results: Xray: left intertrochanteric hip fx Imaging: I viewed and interpreted images myself ED Course/Re-evaluation: This pt presents after a mechanical fall with left hip pain. Xray reveals a left intertrochanteric hip fx. Results d/w pt. Morphine and Zofran IV given with pain relief. He is clinically sober, will place on [facility] protocol for expected alcohol withdrawal. Dr. Quintana consulted, d/w Charles, will see in hospital. Plan for operative repair tomorrow. The hospitalist service was consulted for admission. Differential Diagnosis: includes though not limited to dislocation, open fx, hemorrhage, PTX, other fx. - Data Points Laboratory Results: Laboratory Results 05/20/18 19:20 05/20/18 19:20 05/20/18 19:20 Smear Review By Filippo LOYA MD Medications Given: Chlordiazepoxide HCl (Librium) 10 mg PO TID PADMA Stop: 11/17/18 16:15 Last Admin: 05/21/18 16:52 Dose: 10 mg Clonazepam (Klonopin) 1 mg PO BID PADMA Stop: 11/16/18 20:59 Last Admin: 05/21/18 11:48 Dose: 1 mg Folic Acid (Folic Acid) 1 mg PO DAILY PADMA Stop: 11/17/18 08:59 Last Admin: 05/21/18 10:49 Dose: Not Given Hydromorphone HCl (Dilaudid) 0.2 - 0.4 mg IVP Q4HRS PRN PRN Reason: Pain, Severe Unable to Take PO Stop: 05/30/18 19:51 Last Admin: 05/21/18 03:21 Dose: 0.4 mg Thiamine HCl 500 mg/ Sodium (Chloride) 105 mls @ 210 mls/hr IV Q24H PADMA Stop: 05/22/18 21:29 Last Admin: 05/20/18 20:50 Dose: 105 mls Lorazepam (Ativan Injection) 0 mg IVP Q1H PRN; Protocol PRN Reason: Alcohol Withdrawal w/IV access Stop: 11/16/18 18:05 Last Admin: 05/21/18 15:44 Dose: 2 mg Multivitamins (Tab-A-Perlita) 1 each PO DAILY PADMA Stop: 11/17/18 08:59 Last Admin: 05/21/18 10:49 Dose: Not Given Nicotine (Nicoderm Cq) 21 mg TD DAILY PRN PRN Reason: Smoking Cessation Stop: 11/16/18 18:05 Last Admin: 05/21/18 13:47 Dose: 21 mg Oxycodone/Acetaminophen (Percocet 5/325) 1 - 2 tab PO Q4HRS PRN PRN Reason: Pain, Severe Able to Take PO Stop: 05/30/18 19:51 Last Admin: 05/21/18 15:19 Dose: 2 tab Quetiapine Fumarate (Seroquel) 200 mg PO HS PADMA Stop: 11/16/18 20:59 Last Admin: 05/20/18 20:51 Dose: 200 mg Fluticasone/Salmeterol (Advair) 1 puffs IH BID PADMA Stop: 11/16/18 20:59 Last Admin: 05/21/18 09:54 Dose: Not Given Discontinued Medications Albumin Human (Alburx 5) Confirm Administered Dose 500 ml IV .STK-MED ONE Stop: 05/21/18 08:13 Last Admin: 05/21/18 09:03 Dose: Not Given Bupivacaine HCl/Epinephrine Bitart (Bupivacaine/Epi) Confirm Administered Dose 30 ml .ROUTE .STK-MED ONE Stop: 05/21/18 08:51 Last Admin: 05/21/18 09:03 Dose: 30 ml Hydromorphone HCl (Dilaudid) 0.5 mg IVP EDNOW ONE Stop: 05/20/18 18:12 Last Admin: 05/20/18 19:15 Dose: 0.5 mg Sodium Chloride (Ns) 500 mls @ 1,500 mls/hr IV PRN PRN PRN Reason: SBP LESS THAN 90 Last Admin: 05/20/18 20:50 Dose: 500 mls Cefazolin Sodium/Dextrose (Ancef) 100 mls @ 200 mls/hr IV ONCALL ONE PRN Reason: Protocol Stop: 05/21/18 06:42 Last Admin: 05/21/18 08:00 Dose: 100 mls Lactated Ringer's (Lr) 1,000 mls @ 0 mls/hr IV ONCE ONE PRN Reason: As Directed Stop: 05/21/18 07:01 Last Admin: 05/21/18 07:15 Dose: 1,000 mls Ibuprofen (Motrin) 600 mg PO EDNOW ONE Stop: 05/20/18 16:53 Last Admin: 05/20/18 16:56 Dose: 600 mg Ketorolac Tromethamine (Toradol) 30 mg IVP ONCE ONE Stop: 05/21/18 10:01 Last Admin: 05/21/18 09:58 Dose: 30 mg Magnesium Sulfate (Magnesium Sulfate) Confirm Administered Dose 1 gm .ROUTE .STK -MED ONE Stop: 05/21/18 08:13 Last Admin: 05/21/18 10:16 Dose: Not Given Morphine Sulfate (Morphine) 1 - 4 mg IVP Q10M PRN PRN Reason: PACU, PAIN Stop: 05/21/18 09:32 Last Admin: 05/21/18 09:52 Dose: 2 mg Departure - Departure Disposition: [facility] Inpatient Acute Clinical Impression: Closed left hip fracture Qualifiers: Encounter type: initial encounter Qualified Code(s): S72.002A - Fracture of unspecified part of neck of left femur, initial encounter for closed fracture Condition: Fair
[2018-05-20] MEDS ORDERED: ONDANSETRON 4 MG/2 ML VIAL IVP PRN ×2 (18:03→19:52)
[2018-05-20] MEDS ORDERED: ONDANSETRON DISINTEGRATING 4 MG TAB PO PRN ×2 (18:03→19:52)
[2018-05-20] MEDS ORDERED: ACETAMINOPHEN 325 MG TAB PO PRN (18:03)
[2018-05-20] MEDS ORDERED: FLUMAZENIL 0.5 MG/5 ML MDV IVP PRN (18:06)
[2018-05-20] MEDS ORDERED: oxyCODONE IR 5 MG TAB PO PRN (18:06)
[2018-05-20] MEDS ORDERED: LORazepam 2 MG/ML INJ IVP PRN (18:10)
[2018-05-20] MEDS ORDERED: LORazepam 1 MG TAB PO PRN (18:10)
[2018-05-20] MEDS ORDERED: HYDROmorphONE/DILAUDID 2 MG/ML INJ IVP ONE (18:11)
--- NOTE | 2018-05-20 18:40 | PDCONSULT ---
Maturity Checker Note: ORTHOPEDIC SURGERY CONSULT NOTE ASSESSMENT: Left Intertrochanteric Hip Fracture, Non-Displaced PLAN: NPO after Midnight Admit to Hospitalist team. He will most likely have CINV protocol in place Will plan surgery tomorrow morning approx 9:00am 05/21/18 Surgery will be ORIF Left Hip using compression screw to be performed by Dr. Mariano MD NWDuane LLE to begin immediately I will meet with patient in the morning to discuss risks and benefits, and review consent before surgery Please don't hesitate to call for any questions or concerns: Gabriel Argueta PA-C SUBJECTIVE: Patient presented to [facility] ER for fall to his left hip. He has history of alcoholism, and was deemed intoxicated during his fall. Of note, he has a previous BKA left side, and has been using crutches with new prosthesis. He has history of Respiratory Disease, and Hypertension. X-rays taken in ER today show a left hip, intertrochanteric fracture. OBJECTIVE: Radiographs were reviewed by myself and Dr. Quintana confirming left intertrochanteric hip fracture, non-displaced.
[2018-05-20] MEDS: LORazepam 2 MG/ML INJ IVP PRN (19:18)
[2018-05-20] MEDS: NS 500 ML IV PRN ×2 (19:31→20:50)
[2018-05-20 19:38] LABS: PLATELET COUNT 263 10^3/uL (150-400)
[2018-05-20 19:45] LABS: INR 1.12 (0.83-1.16)
--- NOTE | 2018-05-20 19:47 | PDGENHP ---
History and Physical - Chief Complaint L hip pain - History of Present Illness Jonathan Hogan is a 53 yo M with a PMhx of L BKA, HTN, Depression/Anxiety, LBP, Gastric bypass, COPD, epilepsy, ETOH abuse who presents to [facility] s/p fall found to have a L hip fracture. He reports that he tripped and fell on his L prosthesis and landed on his L hip with immediate onset of L hip pain. Pain is described as 7/10 currently, sharp, non-radiating, worse with movement. He denies any chest pain, shortness of breath, d/c, n/v, f/c. History Information - Allergies/Home Medication List Allergies/Adverse Reactions: gabapentin Allergy (Verified 05/20/18 18:30) bee stings Allergy (Uncoded 05/20/18 16:21) Anaphylaxis Home Medications: Albuterol [Proventil Inhaler HFA (*)] 2 puffs IH Q4H PRN 03/14/17 [Last Taken 00:00] Fluticasone/Salmeter 250/50Mcg [Advair 250/50 (*)] 1 puffs IH BID 07/29/17 [ Last Taken 05/19/18] Promethazine HCl [Phenergan 25mg (*)] 25 mg PO Q8HRS PRN 07/29/17 [Last Taken 23:30] QUEtiapine FUMARATE [Seroquel 200 mg (*)] 200 mg PO HS 05/20/18 [Last Taken 09/29 21:00] clonazePAM [Clonazepam] 1 mg PO BID 05/20/18 [Last Taken 05/19/18 21:00] oxyCODONE IR [Oxycodone Ir (*)] 10 mg PO BID 05/20/18 [Last Taken 05/19/18] I have personally reviewed and updated: family history, medical history, social history, surgical history - Past Medical History COPD, hypertension, psychiatric history (bipolar/prior sa) Additional medical history: alcohol, substance abuse, morbid obesity - Surgical History Additional surgical history: L BKA, gastric bypass - Family History Positive for: non-pertinent - Social History Smoking Status: Current every day smoker Alcohol Use: Heavy (0.5-1 pint daily) Review of Systems Review of Systems: ROS: 10pt was reviewed & negative except for what was stated in HPI & below Physical Exam Physical Exam: Temp Pulse Resp BP Pulse Ox 37 C 98 18 150/90 H 96 05/20/18 16:21 05/20/18 19:32 05/20/18 19:32 05/20/18 19:32 05/20/18 19:32 O2 (L/minute) 2 Constitutional: chronically ill appearing, uncomfortable Eyes: PERRL Ears, Nose, Mouth, Throat: moist mucous membranes Cardiovascular: regular rate and rhythym Respiratory: no respiratory distress Gastrointestinal: soft, non-tender abdomen Skin: warm Musculoskeletal: pain with ROM Neurologic: AAOx3 Psychiatric: interacting appropriately Lab Data & Imaging Review 05/20/18 19:20 05/20/18 19:20 WBC 9.79 10^3/uL (3.80-9.50) H 05/20/18 19:20 RBC 5.12 10^6/uL (4.40-6.38) 05/20/18 19:20 Hgb 10.7 g/dL (13.7-17.5) L 05/20/18 19:20 Hct 35.4 % (40.0-51.0) L 05/20/18 19:20 MCV 69.1 fL (81.5-99.8) L 05/20/18 19:20 MCH 20.9 pg (27.9-34.1) L 05/20/18 19:20 MCHC 30.2 g/dL (32.4-36.7) L 05/20/18 19:20 RDW 19.6 % (11.5-15.2) H 05/20/18 19:20 Plt Count 263 10^3/uL (150-400) 05/20/18 19:20 MPV 10.7 fL (8.7-11.7) 05/20/18 19:20 Neut % (Auto) 82.2 % (39.3-74.2) H 05/20/18 19:20 Lymph % (Auto) 13.1 % (15.0-45.0) L 05/20/18 19:20 Wilkes % (Auto) 3.8 % (4.5-13.0) L 05/20/18 19:20 Eos % (Auto) 0.1 % (0.6-7.6) L 05/20/18 19:20 Baso % (Auto) 0.4 % (0.3-1.7) 05/20/18 19:20 Nucleat RBC Rel Count 0.0 % (0.0-0.2) 05/20/18 19:20 Absolute Neuts (auto) 8.05 10^3/uL (1.70-6.50) H 05/20/18 19:20 Absolute Lymphs (auto) 1.28 10^3/uL (1.00-3.00) 05/20/18 19:20 Absolute Monos (auto) 0.37 10^3/uL (0.30-0.80) 05/20/18 19:20 Absolute Eos (auto) 0.01 10^3/uL (0.03-0.40) L 05/20/18 19:20 Absolute Basos (auto) 0.04 10^3/uL (0.02-0.10) 05/20/18 19:20 Absolute Nucleated RBC 0.00 10^3/uL (0-0.01) 05/20/18 19:20 Immature Gran % 0.4 % (0.0-1.1) 05/20/18 19: Immature Gran # 0.04 10^3/uL (0.00-0.10) 05/20/18 19:20 Assessment & Plan Assessment: L Hip Fracture - S/p mechanical fall earlier today, seen earlier for alcohol intoxication - XR LLE shows intertrochanteric fracture of L femur - Seen by Ortho in ED, plan for OR tomorrow morning - PRN Pain medications overnight - NPO at midnight - PT/OT Alcohol Abuse - Reports drinking 0.5-1 pint alcohol daily, ETOH level pending - Will order CIWA protocol as well as folate, thiamine, MV COPD - Not currently in exacerbation - Continue home medications pending med rec FEN: IVF PRN, NPO at midnight DVT PPx: Holding for OR tomorrow Am, initiate after per Ortho Code: FULL Dispo: Admit to Medicine
[2018-05-20] MEDS ORDERED: ALBUTEROL 60 PUFFS/8 GM MDI IH PRN (19:51)
[2018-05-20] MEDS: OXYCODONE/APAP 5/325 TAB PO PRN (20:23)
[2018-05-20] MEDS: THIAMINE HCL 500 MG in NS 100 ML IV SCH (20:50)
[2018-05-20] MEDS: QUEtiapine FUMARATE 200 MG TAB PO SCH (20:51)
[2018-05-20] MEDS: clonazePAM 1 MG TAB PO SCH (21:05)
--- NOTE | 2018-05-20 21:14 | CPEKG ---
Test Reason : OPEN Blood Pressure : / mmHG Vent. Rate : 093 BPM Atrial Rate : 093 BPM P-R Int : 149 ms QRS Dur : 074 ms QT Int : 364 ms P-R-T Axes : 057 043 062 degrees QTc Int : 453 ms Sinus rhythm Low voltage, extremity and precordial leads Confirmed by Afua Cano ([id number]) on 05/20/2018 9:13:58 PM Referred By: Roscoe Royal Confirmed By:Afua Cano
[2018-05-20] MEDS: FLUTICASONE/SALMETER 250/50MCG DISKUS IH SCH (22:14)
[2018-05-21] MEDS: LORazepam 2 MG/ML INJ IVP PRN ×5 (00:13→23:58)
[2018-05-21] MEDS: OXYCODONE/APAP 5/325 TAB PO PRN ×5 (00:19→21:56)
[2018-05-21] MEDS: HYDROmorphONE/DILAUDID 1 MG/ML INJ IVP PRN ×2 (03:21→20:11)
[2018-05-21] MEDS ORDERED: ceFAZolin 2 GM/DEXTROSE 100 ML IV ONE (06:13)
[2018-05-21] MEDS ORDERED: LR 1,000 ML IV SCH (06:30)
--- NOTE | 2018-05-21 06:33 | PDCONSULT ---
Electric Drill Operator Note: ORTHOPEDIC SURGERY CONSULT NOTE ASSESSMENT: Left Intertrochanteric hip fracture PLAN: ORIF Left Hip/Proximal Femur this AM @730am to be performed by Dr. Quintana Discussed the surgery and future rehabilitation following this particular surgery. Discussed all risks and benefits to the patient. Surgical consent was reviewed and signed by patient this AM His questions and concerns have been answered. H&P documented by Hospitalist. Please refer fto for medical history. PHYSICAL EXAM Left Lower Extremity BKA with prosthesis present. Left hip shows no swelling bruising or open wounds or signs of infection. Patient seen by Gabriel Argueta PA-C for Dr. Mariano ZEPEDA (Orthopedic Surgery)
[2018-05-21] MEDS ORDERED: LR 1,000 ML IV ONE (07:00)
[2018-05-21] MEDS ORDERED: ALBUTEROL 3 ML DEYVIAL ONE (07:37)
[2018-05-21] MEDS ORDERED: PROPOFOL/EMULSION 500 MG/50 ML BOTTLE IV ONE ×2 (07:46→08:29)
[2018-05-21] MEDS ORDERED: fentaNYL 100 MCG/2 ML INJ ONE ×2 (07:46→08:23)
[2018-05-21] MEDS ORDERED: ALBUMIN 5% 250 ML BOTTLE IV ONE (08:12)
[2018-05-21] MEDS ORDERED: MAGNESIUM SULFATE 1 GM/2 ML VIAL ONE (08:12)
--- NOTE | 2018-05-21 08:26 | PDANEPAE ---
ANE Past Medical History - Cardiovascular History Hx Hypertension: Yes Hx Arrhythmias: Yes Hx Chest Pain: No Hx Coronary Artery / Peripheral Vascular Disease: No Hx CHF / Valvular Disease: No Hx Palpitations: No Cardiovascular History Comment: hx of afib with RVR - Pulmonary History Hx COPD: Yes Hx Asthma/Reactive Airway Disease: No Hx Recent Upper Respiratory Infection: No Hx Oxygen in Use at Home: No Hx Sleep Apnea: No Sleep Apnea Screening Result - Last Documented: Positive Pulmonary History Comment: amy triggers. lung mass from 06/2016. hx of bronchitis and pna - Neurologic History Hx Cerebrovascular Accident: No Hx Seizures: Yes Hx Dementia: No Neurologic History Comment: seizures with etoh withdrawl. hx of back surgeries - Endocrine History Hx Diabetes: No - Renal History Hx Renal Disorders: No - Liver History Hx Hepatic Disorders: No - Neurological & Psychiatric Hx Hx Neurological and Psychiatric Disorders: Yes Neurological / Psychiatric History Comment: ADHD. bipolar. anxiety. depression - Cancer History Hx Cancer: No - Congenital Disorder History Hx Congenital Disorders: No - GI History Hx Gastrointestinal Disorders: Yes Gastrointestinal History Comment: gastric bypass surgery - Other Health History Other Health History: frostbite,dry gangrene with multiple toe surgeries. anemia. hx of multiple falls. chronic pain. hx of alcoholism and opiod dependence - Chronic Pain History Chronic Pain: Yes (generalized) - Surgical History Prior Surgeries: 06/04/17 skin grafting of Left heel with Shawn. 04/26/17 Left heel i&d with Shawn. 03/14/17 left 1st and 3rd digit amputation with Shawn. left 5th toe amputation with Shawn. Cholecystectomy 1992. gastric bypass 1999. 3 spine fusions L2-S1 2000, 2013, 2016 ANE Review of Systems Review of Systems: ANE Patient History - Allergies Allergies/Adverse Reactions: gabapentin Allergy (Verified 05/20/18 18:30) bee stings Allergy (Uncoded 05/20/18 16:21) Anaphylaxis - Home Medications Home Medications: Albuterol [Proventil Inhaler HFA (*)] 2 puffs IH Q4H PRN 03/14/17 [Last Taken 00:00] Fluticasone/Salmeter 250/50Mcg [Advair 250/50 (*)] 1 puffs IH BID 07/29/17 [ Last Taken 05/19/18] Promethazine HCl [Phenergan 25mg (*)] 25 mg PO Q8HRS PRN 07/29/17 [Last Taken 23:30] QUEtiapine FUMARATE [Seroquel 200 mg (*)] 200 mg PO HS 05/20/18 [Last Taken 09/29 21:00] clonazePAM [Clonazepam] 1 mg PO BID 05/20/18 [Last Taken 05/19/18 21:00] oxyCODONE IR [Oxycodone Ir (*)] 10 mg PO BID 05/20/18 [Last Taken 05/19/18] - NPO status NPO Since - Liquids (Date): 05/21/18 NPO Since - Liquids (Time): 00:00 NPO Since - Solids (Date): 05/21/18 NPO Since - Solids (Time): 00:00 - Smoking Hx Smoking Status: Current every day smoker - Alcohol Use Alcohol Use: Heavy (0.5-1 pint daily) - Family Anes Hx Family Hx Anesthesia Complications: none ANE Labs/Vital Signs - Labs Result Diagrams: 05/20/18 19:20 05/20/18 19:20 - Vital Signs Blood Pressure: 135/87 Heart Rate: 99 Respiratory Rate: 18 O2 Sat (%): 92 Height: 198.12 cm Weight: 107.955 kg ANE Physical Exam - Airway Neck exam: FROM Mallampati Score: Class 1 Mouth exam: dentures - Pulmonary Pulmonary: reduced air movement, expiratory wheeze - Cardiovascular Cardiovascular: regular rate and rhythym, no murmur, rub, or gallop, tachycardia - ASA Status ASA Status: III ANE Anesthesia Plan Anesthesia Plan: general endotracheal anesthesia Lines/Monitors: additional IV
[2018-05-21] MEDS ORDERED: LIDOCAINE 2% 5 ML SDV ONE (08:28)
[2018-05-21] MEDS ORDERED: SUCCINYLCHOLINE CHLORIDE 200 MG/10 ML SYR IVP ONE (08:28)
[2018-05-21] MEDS ORDERED: CALCIUM CHLORIDE 1 GM/10 ML INJ ONE (08:28)
[2018-05-21] MEDS ORDERED: ROCURONIUM 50 MG/5 ML VIAL ONE (08:28)
[2018-05-21] MEDS ORDERED: NALOXONE HCL 0.4 MG/ML INJ IVP PRN (08:32)
[2018-05-21] MEDS ORDERED: DIAZEPAM 5 MG/ML 1 ML SYR IVP PRN (08:32)
[2018-05-21] MEDS ORDERED: ALBUTEROL 3 ML DEYVIAL IH PRN (08:32)
[2018-05-21] MEDS ORDERED: LR 500 ML IV PRN (08:32)
[2018-05-21] MEDS ORDERED: fentaNYL 100 MCG/2 ML INJ IVP PRN (08:32)
[2018-05-21] MEDS ORDERED: SUGAMMADEX SODIUM 200 MG/2 ML VIAL IVP ONE (08:50)
[2018-05-21] MEDS ORDERED: BUPIVACAINE/EPI 0.25% 30 ML SDV ONE (08:50)
[2018-05-21] MEDS ORDERED: ONDANSETRON 4 MG/2 ML VIAL ONE (08:50)
--- NOTE | 2018-05-21 09:23 | POSTANESTH ---
Post Anesthetic Evaluation Cardiovascular Status: Normal, Stable, Similar to Pre-Op Cond Respiratory Status: Normal, Stable, Similar to Pre-op Cond. Level of Consciousness/Mental Status: Moderately Sleepy Pain Control: Adequate, Prn Tx Ordered Nausea/Vomiting Control: Adequate, Prn Tx Ordered Complications Possibly Related to Anesthesia: None Noted
[2018-05-21] MEDS ORDERED: KETOROLAC 30 MG/1 ML SDV ONE (09:50)
[2018-05-21] MEDS: FLUTICASONE/SALMETER 250/50MCG DISKUS IH SCH (09:54)
[2018-05-21] MEDS ORDERED: KETOROLAC 30 MG/1 ML SDV IVP ONE (10:00)
--- NOTE | 2018-05-21 10:04 | GOP ---
[f rep st] OPERATIVE REPORT DATE OF OPERATION: 05/21/2018 SURGEON: Osbaldo Quintana MD RN TELEPHONE TRIAGE: Gabriel Argueta PA-C. ANESTHESIA: General. PREOPERATIVE DIAGNOSIS: 1. Left intertrochanteric hip fracture. 2. Previous below-knee amputation creating increased difficulty with the procedure. POSTOPERATIVE DIAGNOSIS: PROCEDURE PERFORMED: 1. Open reduction, internal fixation, left intertrochanteric hip fracture. 2. Application of external fixation pin, left tibia to assist in distraction and fracture reduction. FINDINGS: DESCRIPTION OF PROCEDURE: The patient was taken to the operating room, administered general anesthes ia, placed in the fracture table. His lower amputation stump was prepped and draped. A smooth 316th Steinmann pin was passed through the tibia using sterile technique. Incisions were made with a 15 b lade. The pin was taken down to the anterior aspect of the tibia and driven across the tibia. It wa s retrieved through a small puncture incision lateral side. The pin was then fixated to a traction b ow. The pin tips were protected. The patient was then positioned in the traction table with the tra ction bow attached distally. The well leg was positioned in a well leg baez. The traction was dwight lied. Internal rotation was applied to distract and reduce the fracture. The intraoperative fluoros copy views showed appropriate reduction prior to prepping and draping the hip. A lateral incision was made over the area of the greater trochanter, extended distally. It was tabby ed through dermal and subcutaneous tissues. The bleeders were cauterized. The IT band was split марина gitudinally. The vastus lateralis was reflected superiorly. The lateral aspect of the femur was exp osed. A guide pin was passed through the drill guide. It was then passed up through the femoral nec k under fluoroscopic control. AP and lateral views were ascertained to check our pin position. Pin length was then measured at 110 mm. We adjusted our step cut drill. This was passed over the guide pin and drilled up through the femoral neck. The compression screw was fixated to the insertion hand le. Using the screwdriver, the screw was passed up through the femoral head. The side plate was the n impacted into position. A [place] clamp was used to secure it. 4.5 screws were used to fixate the sideplate after releasing the traction and compressing the screw. The fixation was felt to be close to anatomic. Screw lengths measured from 46 to 42 mm in length. Each screw was drilled and manually tightened. Thorough lavage performed with normal saline. A closure was performed of the vastus lat eralis with a 0 Vicryl suture in a running fashion. A closure was performed of the iliotibial band w ith a 0 Vicryl suture in a [id number] fashion. Closure was performed of the subcutaneous tissue s with a 2-0 V lock suture in a running fashion. Closure was performed of the dermis with russ. The Steinmann pin placed in the tibia was re-prepped after removing it from the distraction device. The pin was then removed with the drill. The holes were infiltrated with Betadine, and sterile dress ings were applied. The pin sites were closed with a single staple prior to applying dressings. A co mpression dressing was applied to the leg stump from the stump all the way up to the upper thigh. Th e patient tolerated the procedure well, was transferred back to recovery in stable condition. There were no operative complications. COMPLICATIONS: None. /[id number]/MODL
[2018-05-21] MEDS: MULTIVITAMINS 1 EACH TAB PO SCH (10:49)
[2018-05-21] MEDS: FOLIC ACID 1 MG TAB PO SCH (10:49)
--- NOTE | 2018-05-21 10:59 | ASMTLACE ---
MARTHA Acuity / Level of Answers: Yes Care: Did the patient have an inpatient admission? Comorbidities - select Answers: Chronic pulmonary disease all that apply Opioid dependence / Chronic pain Other Notes: HTN; AFib Social determinants Answers: History of substance abuse (ETOH, street drugs, prescription drugs, etc.) Homelessness (street, retirement) Mental health diagnosis (anxiety, depression, pers onality disorders, etc.) Score: 19 Date Signed: 05/21/2018 10:58 AM Electronically Signed By:Negrita Deleon
--- NOTE | 2018-05-21 11:29 | ASMTCMCOM ---
CM Note CM Note Notes: Pt admitted for left hip fracture and had ORIF today. Pt's PMH includes left BKA, HTN, LBP, gastric bypass, COPD, epilepsy, depression, anxiety and ETOH abuse. Pt will most likely need SNF placement. Pt is well known to [facility] inpatient and ED staff and CM. Please refer to past CM Reports for additional background info but overall pt had been discharged July 2017 to [facility] after having a left BKA. Pt had been at [facility] prior to that but per 08/06/17 CM Report, Jessica at [facility] stated pt couldn't return there due to behavior and said pt will not be allowed at any other [facility] facility in the future. Pt was seen in the ED earlier yesterday for ETOH intoxication and was discharged after being able to ambulate with crutches (pt is still getting used to his left prosthesis and utilizing crutches to assist). Pt didn't want to go to detox, [facility], [facility], or anywhere this CM offered to provide a cab voucher to...But pt was adamant that he wanted to leave and pay for his own cab to go back to the [facility] where EMS picked him up from. Pt states he needs to pick and shovel man prescriptions there and then he plans to go to [facility] once they are open. Pt ambulated out of the ED with his crutches. Pt wanted to sit outside on the bench while waiting for the cab. Unfortunately, while pt was waiting for the cab, pt reports he tripped and fell onto his left hip. Pt was brought back into the ED and his left hip xray showed a fracture. Pt had a girlfriend/fiance, Irma ([phone], ), in the past (July 2017) but when CM asked pt about her and any other family support, pt denied having a girlfriend/fiance/ or any other support at this time. Pt states he is still in contact with his 16 year old daughter Patricia but didn't want her contact info listed in his chart. Pt had said he was recently staying at [facility] but when CM spoke w/Titi Lee at [facility], he said he didn't see any visits for the pt and it looks like the pt hasn't been staying at the [facility] either. Pt completed Coordinated Entry in 06/2017 and was referred to [facility]. Anticipate pt to need SNF once stable. CM to follow. Date Signed: 05/21/2018 11:25 AM Electronically Signed By:Melisa Dixon RN
[2018-05-21] MEDS: clonazePAM 1 MG TAB PO SCH ×2 (11:48→20:01)
--- NOTE | 2018-05-21 11:51 | PDMN ---
Medical Necessity Medical necessity: Pt meets IP criteria per & MCG SG-MS Musculoskeletal Surgery or Procedure; est los >2 mn for eval/tx of L hip fx s/p fall; admit for further monitoring, Ortho consult w/surgical intervention, CIWA protocol, pain management & therapies; hx L BKA, COPD, epilepsy, alcohol abuse, morbid obesity ; per H&P & order 05/20/18
[2018-05-21] MEDS: NICOTINE 21 MG/24 HR PATCH TD PRN (13:47)
--- NOTE | 2018-05-21 16:21 | HOSPPROG ---
Hospitalist Progress Note Assessment/Plan: 53 yo M w alcoholism here w hip fracture hip fracture: s/p ORIF of Left intertrochanteric hip fracture alcohol dependence with withdrawal: tremulous intoxicated on presentation start librium 10 tid declines alcohol while here copd: without flare continue janie, prn albuterol depression/anxiety: continue seroquel, klonopin proph :lmwh dispo: inpt Subjective: case d/w dr alberto. s/p operative hip repair Objective: Vital Signs Temp Pulse Resp BP Pulse Ox 36.6 C 105 H 18 133/69 H 97 05/21/18 14:42 05/21/18 14:42 05/21/18 14:42 05/21/18 14:42 05/21/18 14:42 05/20/18 05/21/18 05/22/18 05:59 05:59 05:59 Intake Total 1000 600 Output Total 350 400 Balance 650 200 PT 14.0 SEC (12.0-15.0) 05/20/18 19:20 INR 1.12 (0.83-1.16) 05/20/18 19:20 - Physical Exam Constitutional: no apparent distress, appears nourished, other (tremulous) Eyes: PERRL, anicteric sclera Ears, Nose, Mouth, Throat: moist mucous membranes, hearing normal Cardiovascular: regular rate and rhythym, no murmur, rub, or gallop Respiratory: no respiratory distress, no rales or rhonchi Gastrointestinal: normoactive bowel sounds, soft, non-tender abdomen Genitourinary: no bladder fullness, No benitez in urethra Skin: warm, normal color Musculoskeletal: full muscle strength Neurologic: AAOx3 ICD10 Worksheet Patient Problems: Problems Problem Status Onset Alcohol abuse Acute Alcohol intoxication Acute Alcohol withdrawal Acute Atrial fibrillation with RVR Acute Back pain Acute COPD (chronic obstructive pulmonary disease) Acute Cold exposure Acute Cold exposure Acute Dehydration Acute Facial laceration Acute Frostbite Acute Frostbite of both great toes Acute Laceration of eyebrow, left Acute Lactic acidosis Acute Lower extremity cellulitis Acute Multiple abrasions Acute Neck strain Acute Reversible airways disease Acute Seizure Acute Situational depression Acute Strain of mid-back Acute
[2018-05-21] MEDS: QUEtiapine FUMARATE 200 MG TAB PO SCH (20:00)
[2018-05-21] MEDS: THIAMINE HCL 500 MG in NS 100 ML IV SCH (20:30)
[2018-05-21] MEDS: ACETAMINOPHEN 500 MG TAB PO SCH (22:50)
[2018-05-22] MEDS: FLUTICASONE/SALMETER 250/50MCG DISKUS IH SCH ×3 (00:42→21:04)
[2018-05-22] MEDS: HYDROmorphONE/DILAUDID 1 MG/ML INJ IVP PRN ×2 (01:46→06:46)
[2018-05-22] MEDS: LORazepam 2 MG/ML INJ IVP PRN ×4 (03:38→21:40)
[2018-05-22] MEDS: OXYCODONE/APAP 5/325 TAB PO PRN ×2 (03:39→08:34)
[2018-05-22] MEDS: ACETAMINOPHEN 500 MG TAB PO SCH ×3 (06:13→23:18)
[2018-05-22] MEDS: MULTIVITAMINS 1 EACH TAB PO SCH (08:38)
[2018-05-22] MEDS: clonazePAM 1 MG TAB PO SCH ×2 (08:38→20:40)
[2018-05-22] MEDS: FOLIC ACID 1 MG TAB PO SCH (08:38)
[2018-05-22] MEDS: ENOXAPARIN 40 MG/0.4 ML SYR SC SCH (08:41)
--- NOTE | 2018-05-22 08:50 | HOSPPROG ---
Hospitalist Progress Note Assessment/Plan: 53 yo M w alcoholism here w hip fracture hip fracture: s/p ORIF of Left intertrochanteric hip fracture alcohol dependence with withdrawal: tremulous intoxicated on presentation start librium 10 tid reduce scheduled librium to 5 tid AM 05/23 declines alcohol while here pain: scheduled tylenol, prn oxycodone copd: without flare continue janie, prn albuterol depression/anxiety: continue seroquel, klonopin proph :lmwh dispo: inpt Subjective: case d/w dr alberto. withdrawal sx minor Objective: Vital Signs Temp Pulse Resp BP Pulse Ox 37.3 C 91 14 134/76 H 96 05/22/18 07:45 05/22/18 07:45 05/22/18 07:45 05/22/18 07:45 05/22/18 07:45 05/21/18 05/22/18 05/23/18 05:59 05:59 05:59 Intake Total 1000 1080 Output Total 350 875 Balance 650 205 PT 14.0 SEC (12.0-15.0) 05/20/18 19:20 INR 1.12 (0.83-1.16) 05/20/18 19:20 - Physical Exam Constitutional: no apparent distress, not in pain Eyes: PERRL, anicteric sclera Ears, Nose, Mouth, Throat: moist mucous membranes, hearing normal Cardiovascular: regular rate and rhythym, no murmur, rub, or gallop Respiratory: no respiratory distress, no rales or rhonchi Gastrointestinal: normoactive bowel sounds, soft, non-tender abdomen Genitourinary: no bladder fullness, No benitez in urethra Skin: warm, normal color Musculoskeletal: full muscle strength Neurologic: AAOx3 Psychiatric: interacting appropriately Lymph, Heme, Immunologic: no cervical LAD ICD10 Worksheet Patient Problems: Problems Problem Status Onset Closed left hip fracture Acute Alcohol abuse Acute Alcohol intoxication Acute Alcohol withdrawal Acute Atrial fibrillation with RVR Acute Back pain Acute COPD (chronic obstructive pulmonary disease) Acute Cold exposure Acute Cold exposure Acute Dehydration Acute Facial laceration Acute Frostbite Acute Frostbite of both great toes Acute Laceration of eyebrow, left Acute Lactic acidosis Acute Lower extremity cellulitis Acute Multiple abrasions Acute Neck strain Acute Reversible airways disease Acute Seizure Acute Situational depression Acute Strain of mid-back Acute
[2018-05-22] MEDS: POLYETHYLENE GLYCOL 3350 17 GM PKT PO SCH (09:57)
[2018-05-22] MEDS: oxyCODONE IR 5 MG TAB PO PRN ×4 (11:56→23:18)
--- NOTE | 2018-05-22 14:12 | SOAPPROG ---
SOAP Progress Note Assessment/Plan: Assessment: POD #1 S/P ORIF Left Intertrochanteric Hip Fracture Plan: NWB LLE due to stitches near stump. Crutches for ambulation LMWH for DVT prophylaxis per hospitalist Continue PT/OT Continue current pain medication regiment Discharge: Pending per Case Management and Hospitals Followup: in 10-14 days at [facility] 05/22/18 14:09 Subjective: He is in moderate pain. Overal states he is doing ok. Denies any SOB, CP, N/V Objective: Vital Signs Temp Pulse Resp BP Pulse Ox 37.0 C 109 H 18 125/61 H 97 05/22/18 13:10 05/22/18 13:10 05/22/18 13:10 05/22/18 13:10 05/22/18 13:10 05/21/18 05/22/18 05/23/18 05:59 05:59 05:59 Intake Total 1000 1080 120 Output Total 350 875 Balance 650 205 120 PT 14.0 SEC (12.0-15.0) 05/20/18 19:20 INR 1.12 (0.83-1.16) 05/20/18 19:20 PHYSICAL EXAM LLE Bandage clean and dry. Fires quads appropriately. Mild swelling. No erythema or sign of infection ICD10 Worksheet Patient Problems: Problems Problem Status Onset Closed left hip fracture Acute Alcohol abuse Acute Alcohol intoxication Acute Alcohol withdrawal Acute Atrial fibrillation with RVR Acute Back pain Acute COPD (chronic obstructive pulmonary disease) Acute Cold exposure Acute Cold exposure Acute Dehydration Acute Facial laceration Acute Frostbite Acute Frostbite of both great toes Acute Laceration of eyebrow, left Acute Lactic acidosis Acute Lower extremity cellulitis Acute Multiple abrasions Acute Neck strain Acute Reversible airways disease Acute Seizure Acute Situational depression Acute Strain of mid-back Acute
--- NOTE | 2018-05-22 16:58 | ASMTCMCOM ---
CM Note CM Note Notes: Met with Pt and discussed Pt w/ RN. Pt's NAT is a 7, he awaken easily when I called out his name. Pt is on Librium 10mg and the dose will decrease to 5mg 05/23, per MD withdrawal s/s are minimal. This CM asked pt if he would stop drinking while in the SNF and he agreed. Pt does not have a plan for where he will live when d/c from SNF. Pt is happy that his 2 daughters will visit [facility] and said he is no longer . At least a dozen referrals sent out today. CM available for needs. PLAN: SNF Date Signed: 05/22/2018 04:57 PM Electronically Signed By:Jaqueline Mccord
[2018-05-22] MEDS: THIAMINE HCL 500 MG in NS 100 ML IV SCH (20:39)
[2018-05-22] MEDS: QUEtiapine FUMARATE 200 MG TAB PO SCH (20:40)
[2018-05-23] MEDS: LORazepam 2 MG/ML INJ IVP PRN ×2 (02:33→07:59)
[2018-05-23] MEDS: oxyCODONE IR 5 MG TAB PO PRN ×4 (03:14→16:10)
[2018-05-23] MEDS: ACETAMINOPHEN 500 MG TAB PO SCH ×2 (06:22→15:12)
[2018-05-23] MEDS: clonazePAM 1 MG TAB PO SCH (07:53)
[2018-05-23] MEDS: NICOTINE 21 MG/24 HR PATCH TD PRN (08:31)
[2018-05-23] MEDS: FLUTICASONE/SALMETER 250/50MCG DISKUS IH SCH (08:47)
[2018-05-23] MEDS ORDERED: THIAMINE HCL 100 MG TAB PO SCH (09:00)
--- NOTE | 2018-05-23 09:37 | SOAPPROG ---
SOAP Progress Note Assessment/Plan: Assessment: POD #2 S/P ORIF Left Intertrochanteric Hip Fracture Plan: NWB LLE due to stitches near stump. Crutches for ambulation LMWH for DVT prophylaxis per hospitalist Continue PT/OT Continue current pain medication regiment Discharge: SNF when approved per case management Followup: in 10-14 days at [facility] 05/23/18 09:35 Subjective: He was pretty sleepy this AM. He appeared in no acute distress. He states his pain was currently controlled. Denies CP, SOB, N/V Objective: Vital Signs Temp Pulse Resp BP Pulse Ox 37.0 C 89 18 119/62 90 L 05/23/18 07:04 05/23/18 08:51 05/23/18 08:51 05/23/18 07:04 05/23/18 08:51 05/22/18 05/23/18 05/24/18 05:59 05:59 05:59 Intake Total 1080 220 Output Total 875 975 200 Balance 205 -755 -200 PT 14.0 SEC (12.0-15.0) 05/20/18 19:20 INR 1.12 (0.83-1.16) 05/20/18 19:20 PHYSICAL EXAM LLE Dressing clean and dry. No erythema noted. No significant swelling. Compartments soft non-tender. ICD10 Worksheet Patient Problems: Problems Problem Status Onset Closed left hip fracture Acute Alcohol abuse Acute Alcohol intoxication Acute Alcohol withdrawal Acute Atrial fibrillation with RVR Acute Back pain Acute COPD (chronic obstructive pulmonary disease) Acute Cold exposure Acute Cold exposure Acute Dehydration Acute Facial laceration Acute Frostbite Acute Frostbite of both great toes Acute Laceration of eyebrow, left Acute Lactic acidosis Acute Lower extremity cellulitis Acute Multiple abrasions Acute Neck strain Acute Reversible airways disease Acute Seizure Acute Situational depression Acute Strain of mid-back Acute
[2018-05-23] MEDS: ENOXAPARIN 40 MG/0.4 ML SYR SC SCH (09:47)
[2018-05-23] MEDS: MULTIVITAMINS 1 EACH TAB PO SCH (09:47)
[2018-05-23] MEDS: FOLIC ACID 1 MG TAB PO SCH (09:47)
[2018-05-23] MEDS: POLYETHYLENE GLYCOL 3350 17 GM PKT PO SCH (09:48)
--- NOTE | 2018-05-23 10:06 | HOSPPROG ---
Hospitalist Progress Note Objective: Vital Signs Temp Pulse Resp BP Pulse Ox 37.0 C 89 18 119/62 90 L 05/23/18 07:04 05/23/18 08:51 05/23/18 08:51 05/23/18 07:04 05/23/18 08:51 05/22/18 05/23/18 05/24/18 05:59 05:59 05:59 Intake Total 1080 220 Output Total 875 975 200 Balance 205 -755 -200 PT 14.0 SEC (12.0-15.0) 05/20/18 19:20 INR 1.12 (0.83-1.16) 05/20/18 19:20 - Time Spent With Patient Time Spent with Patient: greater than 35 minutes Time Spent with Patient: Greater than 35 minutes spent on this patients care, greater than 50% of time spent counseling, educating, and coordinating care regarding the above mentioned plan. ICD10 Worksheet Patient Problems: Problems Problem Status Onset Closed left hip fracture Acute Alcohol abuse Acute Alcohol intoxication Acute Alcohol withdrawal Acute Atrial fibrillation with RVR Acute Back pain Acute COPD (chronic obstructive pulmonary disease) Acute Cold exposure Acute Cold exposure Acute Dehydration Acute Facial laceration Acute Frostbite Acute Frostbite of both great toes Acute Laceration of eyebrow, left Acute Lactic acidosis Acute Lower extremity cellulitis Acute Multiple abrasions Acute Neck strain Acute Reversible airways disease Acute Seizure Acute Situational depression Acute Strain of mid-back Acute
[2018-05-23 10:49] VITALS: BP 138/83
--- NOTE | 2018-05-23 11:39 | ASMTCMCOM ---
CM Note CM Note Notes: Jonathan is open with the [facility]. When he is done with his short term, acute rehab he will return to [facility] as a disposition. The SNF will call Thao Waller [phone], Director of Case Management, who will arrange transport for Jonathan to return to [facility] for the homeless. Jonathan is in agreement with this plan. Date Signed: 05/23/2018 11:37 AM Electronically Signed By:Thao Waller RN
--- NOTE | 2018-05-23 11:59 | ASMTCMCOM ---
CM Note CM Note Notes: Lucero from the [facility] here to assess patient today. She can accept him when he has been without a sitter for 24 hours. She spoke w Director of Case Management, Thao Waller re: patient's discharge plan once short-term rehab stay has been completed. See Thao's note for details. Current CM Discharge plan: [facility], pending being sitter-free for 24 hrs Date Signed: 05/23/2018 11:59 AM Electronically Signed By:Beronica Hand RN
--- NOTE | 2018-05-23 13:01 | PDDCSUM ---
Discharge Summary Discharge Summary: Date of Admission: 05/20/2018 Date of Discharge: 05/23/2018 Discharge Diagnoses: L hip intertrochanteric fracture, s/p ORIF Alcohol dependence Alcohol withdrawal, resolved Acute hip pain, 2/2 hip fracture. COPD Depression/anxiety Admission Diagnoses: Left hip fracture Alcohol abuse COPD Consultants: Orthopedic surgery-Dr. Quintana [place] Hospital Course: The patient is a 53 year male with history of alcohol dependence and left below- the-knee amputation who tripped over his left prosthesis and fell on to his left hip, causing a fracture. Patient was taken for surgery the next day for repair. After the surgery, the patient started to developed alcohol withdrawal symptoms. Patient was put on Librium, which greatly helped. Patient is being discharged to a fpc facility with instructions to be nonweightbearing on the left side in order to ensure healing. After his stay at the fpc facility, the patient will have a bed at the [facility]. Condition: Fair. Discharged to: senior living facility- [facility]. Pertinent tests/labs/imaging: Hip [id number] fracture of left femur. Medications: Please see med rec form. Special instructions: ORTHOPEDIC SURGERY: No Weight Bearing or use of prosthesis until stitches are removed. Crutches will be needed. Ice and elevate. OTC analgesics for pain and prescribed pain meds as needed. Keep dressing intact, clean, and dry. Cover when showering. Lovenox being used for DVT prophylaxis per hospitalist team. Followup in 10-14 days at [facility] with Gabriel Argueta PA-C for Dr. Quintana. Please call to schedule and confirm appointment [phone] Hospital instruction: Return to hospital for worsening or concerning symptoms. Follow up: PCP in 3-5 days. Orthopedic surgeon in 10 days. > 30 minutes of total time was spent on counseling and coordination of care for this patient's discharge.
[2018-05-23] MEDS ORDERED: BISACODYL 10 MG SUPP PR PRN (13:06)
[2018-05-23] MEDS ORDERED: LORazepam 1 MG TAB PO PRN (13:06)
[2018-05-23] MEDS ORDERED: MAGNESIUM HYDROXIDE 30 ML UDCUP PO PRN (13:06)
--- NOTE | 2018-05-23 13:14 | PDIAF ---
- Diagnosis Diagnosis: L hip fracture s/p repair, L BKA, alcohol abuse Code Status: Full Code - Medication Management Additional Medication Instructions: Librium taper. Discharge Medications: electronically signed and located in the Home Medication List. - Orders Services needed: Home Care, Registered Nurse, Certified Supervisor Anodizing, Master Assistant Family Teacher, Physical Therapy, Occupational Therapy Home Care Face to Face: I certify that this patient was under my care and that I had the required [id number] encounter meeting the encounter requirements on the discharge day. My findings support the fact that the patient is homebound as defined in Home Care Face to Face Continued: CMS Chapter 7 Medicare Benefits Manual 30.1.1 , The condition of the patient is such that there exists a normal inability to leave home and consequently, leaving home would require a considerable and taxing effort. Isolation Type: None Diet Recommendation: no restrictions on diet Diet Texture: Regular Texture Diet Activity/Weight Bearing Restrictions: NWB LLE Additional Instructions: ORTHOPEDIC SURGERY: No Weight Bearing or use of prosthesis until stitches are removed. Crutches will be needed. Ice and elevate. OTC analgesics for pain and prescribed pain meds as needed. Keep dressing intact, clean, and dry. Cover when showering. Lovenox being used for DVT prophylaxis per hospitalist team. Followup in 10-14 days at [facility] with Gabriel Argueta PA-C for Dr. Quintana. Please call to schedule and confirm appointment [phone] Hospital instruction: Return to hospital for worsening or concerning symptoms. - Follow Up Care Current Providers and Referrals: NONE *PRIMARY CARE P,. [Primary Care Provider] - 3-5 days (to discuss any potential medication adjustment) Osbaldo Quintana MD [Medical Doctor] - follow up in 10 days
[2018-05-23] MEDS ORDERED: SENNOSIDES/DOCUSATE SODIUM TAB PO SCH (21:00)
--- NOTE | 2018-05-24 16:37 | PDDCSUM ---
Discharge Summary Discharge Summary: ORTHOPEDIC SURGERY DISCHARGE SUMMARY Admission Date: 05/20/18 Discharge Date: 05/23/18 Date of Surgery: 05/21/18 Diagnosis: Left Intertochanteric Hip Fracture Surgical Procedure: ORIF Left Proximal Femur Surgeon: Dr. Osbaldo Quintana MD Filter Screen Cleaner: Gabriel Argueta PA-C HOSPITAL COURSE Patient was treated with oral pain medications and pain was well controlled. His dressing was care for properly. He was given IV fluids until oral fluids were tolerated. He met with Physical Therapy, Occupational Therapy, Case Management, and was deemed safe to discharge to a long-term facility. He was followed by the Hospital Medicine service as well as Orthopedic Surgery during his hospital stay. DISCHARGE INSTRUCTIONS He will be no weight bearing of left lower extremity until seen for followup. Crutches will be used for ambulation. He will be taking Lovenox for DVT prophylaxis, and discharged with oral pain medication. He should ICE and elevate as tolerated. FOLLOW-UP He will followup with [facility] in 10-14 days for surture removal, evaluation, and radiographs. It was a pleasure being able to provide care to Mr. Hogan. We thank all medical services who helped manage his care. Gabriel Argueta PA-C for Dr. Osbaldo Quintana (Orthopedic Surgery)
== END 2018-05-23 16:18 | DRG 481 ==
LOC: OBSVTOIN 19:50 → F3N 20:02
PROVIDERS: ADMIT Internal Medicine; ATTEND Internal Medicine
PROC: 0QS704Z Reposition Left Upper Femur with Internal Fixation Device, Open Approach (ICD-10-PCS; principal; 2018-05-21 07:30)
DX: S72.142A Displaced intertrochanteric fracture of left femur, initial encounter for closed fracture (principal); F10.230 Alcohol dependence with withdrawal, uncomplicated; W01.0XXA Fall on same level from slipping, tripping and stumbling without subsequent striking against object, initial encounter; Z89.512 Acquired absence of left leg below knee; I10 Essential (primary) hypertension; F32.9 Major depressive disorder, single episode, unspecified; F41.9 Anxiety disorder, unspecified; J44.9 Chronic obstructive pulmonary disease, unspecified; G47.33 Obstructive sleep apnea (adult) (pediatric); Y90.7 Blood alcohol level of 200-239 mg/100 ml; Z72.0 Tobacco use; Z98.84 Bariatric surgery status
CPT/HCPCS: 96374; 97116-GP; 97161-GP; 97165-GO; 97530-GO; 97535-GO; C1713; G0480; J0330; J0690; J1170; J1650; J1885; J2060; J2270; J2405; J2704; J3010; J3411; J3475; J7613; P9041

== ENCOUNTER 2018-06-16 16:54 | Inpatient (IN) | payer OTHER ==
--- NOTE | 2018-06-16 17:27 | EDPHY ---
H & P Stated Complaint: Sent from [facility] Time Seen by Provider: 06/16/18 16:58 HPI/ROS: CHIEF COMPLAINT: Left lower extremity infection HISTORY OF PRESENT ILLNESS: 53-year-old male 3 weeks status post left hip arthroplasty presents with an infected left hip. Onset of erythema and pain to the left hip 3 days ago. Associated with a purulent drainage and subjective fever. He was being discharged from rehab today, when the nursing staff noticed the redness. He was sent to [facility] ED and dx/d with a left hip infection. Given Zosyn and Vancomycin IV. Labs/blood cx's done. REVIEW OF SYSTEMS: complete 10 point ROS reviewed and is negative except for the noted elements in the HPI Source: Patient - Personal History Current Tetanus/Diphtheria Vaccine: Yes Tetanus Vaccine Date: 2015 - Medical/Surgical History Hx Asthma: No Hx Chronic Respiratory Disease: Yes Hx Diabetes: No Hx Cardiac Disease: No Hx Renal Disease: No Hx Cirrhosis: No Hx Alcoholism: Yes Hx HIV/AIDS: No Hx Splenectomy or Spleen Trauma: No Other PMH: PMH: Alcoholism, htn, depression/anxiety,COPD, seizures. surg- gastric bypass - Social History Smoking Status: Current every day smoker Alcohol Use: Sober Drug Use: None - Physical Exam Exam: General Appearance: Alert, pleasant Eyes: Pupils equal and round, no conjunctival pallor ENT, Mouth: Mucous membranes moist Neck: Normal inspection Respiratory: Lungs are clear to auscultation anteriorly Cardiovascular: Regular rate and rhythm Gastrointestinal: Abdomen is soft and nontender Neurological: Alert, nonfocal exam Skin: Warm and dry Extremities: Left lower extremity-erythema, warmth and tenderness of the majority of the left thigh, purulent drainage from the surgical wound; left BKA Psychiatric: Mood and affect normal Constitutional: Initial Vital Signs Temperature (C) 37.1 C 06/16/18 17:16 Heart Rate 91 06/16/18 17:16 Respiratory Rate 18 06/16/18 17:16 Blood Pressure 110/68 06/16/18 17:16 O2 Sat (%) 95 06/16/18 17:16 O2 Delivery Mode Room Air Allergies/Adverse Reactions: gabapentin Allergy (Verified 06/16/18 17:19) bee stings Allergy (Uncoded 06/16/18 17:19) Anaphylaxis Home Medications: Medication Instructions Recorded Albuterol [Proventil Inhaler HFA 2 puffs IH Q4H PRN 03/14/17 (*)] Fluticasone/Salmeter 250/50Mcg 1 puffs IH BID 07/29/17 [Advair 250/50 (*)] QUEtiapine FUMARATE [Seroquel 200 200 mg PO HS 05/20/18 mg (*)] clonazePAM [Clonazepam] 1 mg PO BID #6 tablet 05/23/18 Lisinopril/Hctz 20/12.5MG 1 ea PO DAILY 06/16/18 [Zestoretic/Prinzide 20/12.5MG (*)] clonazePAM [Clonazepam] 1 mg PO HS PRN 06/16/18 oxyCODONE IR [Oxycodone Ir (*)] 5 - 15 mg PO Q4-6PRN PRN 06/16/18 Medical Decision Making ED Course/Re-evaluation: This pt presents with a post-op left hip infection. Already received IV abx at [facility]. Labs reviewed, does not meet SIRS criteria. Dr. Quintana consulted and saw the pt in the ED. Morphine IV given for pain control. Ativan 1 mg IV given at patient request. Pt went directly to the OR. - Data Points Microbiology Results: MICROBIOLOGY 06/16/18 17:15 Thigh - Swab Gram Stain - Final Medications Given: Morphine Sulfate (Morphine) 6 mg IVP Q1H PRN PRN Reason: Pain, Severe Unable to Take PO Last Admin: 06/16/18 18:39 Dose: 6 mg Morphine Sulfate (Morphine) 1 - 2 mg IVP Q1HR PRN PRN Reason: Pain, Severe Unable to Take PO Stop: 06/26/18 19:53 Last Admin: 06/16/18 20:30 Dose: 2 mg Discontinued Medications Lorazepam (Ativan Injection) 1 mg IVP EDNOW ONE Stop: 06/16/18 18:34 Last Admin: 06/16/18 18:43 Dose: 1 mg Ondansetron HCl (Zofran) 4 mg IVP EDNOW ONE Stop: 06/16/18 17:35 Last Admin: 06/16/18 18:40 Dose: 4 mg Departure - Departure Disposition: [facility] Inpatient Acute Clinical Impression: Left hip prosthetic joint infection Qualifiers: Encounter type: initial encounter Qualified Code(s): T84.52XA - Infection and inflammatory reaction due to internal left hip prosthesis, initial encounter Condition: Fair
[2018-06-16] MEDS ORDERED: ONDANSETRON 4 MG/2 ML VIAL IVP ONE (17:34)
[2018-06-16] MEDS ORDERED: LORazepam 2 MG/ML INJ IVP ONE (18:33)
[2018-06-16 18:46] LABS: PLATELET COUNT 242 10^3/uL (150-400)
[2018-06-16] MEDS ORDERED: ACETAMINOPHEN 325 MG TAB PO PRN (19:54)
[2018-06-16] MEDS ORDERED: ALBUTEROL 60 PUFFS/8 GM MDI IH PRN (19:58)
[2018-06-16] MEDS ORDERED: clonazePAM 0.5 MG TAB PO PRN (19:58)
[2018-06-16] MEDS ORDERED: NS W/ 20 KCl/L 1,000 ML IV SCH (20:00)
[2018-06-16] MEDS ORDERED: ceFAZolin 1 GM/5 ML SYR ONE ×2 (20:18→20:38)
[2018-06-16] MEDS ORDERED: VANCOMYCIN PHARMACY TO DOSE MISC ONE (20:34)
[2018-06-16] MEDS ORDERED: TEMAZEPAM 15 MG CAP PO PRN (20:36)
[2018-06-16] MEDS ORDERED: ONDANSETRON DISINTEGRATING 4 MG TAB PO PRN (20:36)
[2018-06-16] MEDS ORDERED: KETOROLAC 15 MG/1 ML SDV IVP ONE (20:36)
[2018-06-16] MEDS ORDERED: ONDANSETRON 4 MG/2 ML VIAL IVP PRN ×2 (20:36→20:43)
[2018-06-16] MEDS ORDERED: PROMETHAZINE HCL 25 MG/ML INJ IVP PRN ×2 (20:36→20:43)
[2018-06-16] MEDS ORDERED: LR 1,000 ML IV ONE (20:40)
[2018-06-16] MEDS ORDERED: MIDAZOLAM 2 MG/2 ML VIAL IVP ONE (20:41)
--- NOTE | 2018-06-16 20:41 | PDANEPAE ---
ANE History of Present Illness L hip I&D ANE Past Medical History - Cardiovascular History Hx Hypertension: Yes Hx Arrhythmias: Yes Hx Chest Pain: No Hx Coronary Artery / Peripheral Vascular Disease: No Hx CHF / Valvular Disease: No Hx Palpitations: No Cardiovascular History Comment: hx of afib with RVR - Pulmonary History Hx COPD: Yes Hx Asthma/Reactive Airway Disease: No Hx Recent Upper Respiratory Infection: No Hx Oxygen in Use at Home: No Hx Sleep Apnea: No Pulmonary History Comment: amy triggers. lung mass from 06/2016. hx of bronchitis and pna - Neurologic History Hx Cerebrovascular Accident: No Hx Seizures: Yes Hx Dementia: No Neurologic History Comment: seizures with etoh withdrawl. hx of back surgeries - Endocrine History Hx Diabetes: No - Renal History Hx Renal Disorders: No - Liver History Hx Hepatic Disorders: No - Neurological & Psychiatric Hx Hx Neurological and Psychiatric Disorders: Yes Neurological / Psychiatric History Comment: ADHD. bipolar. anxiety. depression - Cancer History Hx Cancer: No - Congenital Disorder History Hx Congenital Disorders: No - GI History Hx Gastrointestinal Disorders: Yes Gastrointestinal History Comment: gastric bypass surgery - Other Health History Other Health History: frostbite,dry gangrene with multiple toe surgeries. anemia. hx of multiple falls. chronic pain. hx of alcoholism and opiod dependence - Chronic Pain History Chronic Pain: Yes (generalized) - Surgical History Prior Surgeries: 06/04/17 skin grafting of Left heel with Shawn. 04/26/17 Left heel i&d with Shawn. 03/14/17 left 1st and 3rd digit amputation with Shawn. left 5th toe amputation with Shawn. Cholecystectomy 1992. gastric bypass 1999. 3 spine fusions L2-S1 2000, 2013, 2016 ANE Review of Systems Review of systems is: negative Review of Systems: - Exercise capacity Exercise capacity: limited by disability ANE Patient History - Allergies Allergies/Adverse Reactions: gabapentin Allergy (Verified 06/16/18 17:19) bee stings Allergy (Uncoded 06/16/18 17:19) Anaphylaxis - Home Medications Home medications: home medication list seen and reviewed Home Medications: Albuterol [Proventil Inhaler HFA (*)] 2 puffs IH Q4H PRN 03/14/17 [Last Taken 00:00] Fluticasone/Salmeter 250/50Mcg [Advair 250/50 (*)] 1 puffs IH BID 07/29/17 [ Last Taken 05/19/18] QUEtiapine FUMARATE [Seroquel 200 mg (*)] 200 mg PO HS 05/20/18 [Last Taken 09/29 21:00] Lisinopril/Hctz 20/12.5MG [Zestoretic/Prinzide 20/12.5MG (*)] 1 ea PO DAILY 07/30 [Last Taken Unknown] clonazePAM [Clonazepam] 1 mg PO HS PRN 06/16/18 [Last Taken Unknown] oxyCODONE IR [Oxycodone Ir (*)] 5 - 15 mg PO Q4-6PRN PRN 06/16/18 [Last Taken Unknown] - NPO status NPO Status: no food or drink >8 hours NPO Since - Liquids (Date): 06/16/18 NPO Since - Liquids (Time): 12:00 NPO Since - Solids (Date): 06/16/18 NPO Since - Solids (Time): 12:00 - Anes Hx Anes Hx: no prior problems - Smoking Hx Smoking Status: Current every day smoker - Alcohol Use Alcohol Use: Sober - Family Anes Hx Family Anes Hx: none Family Hx Anesthesia Complications: none ANE Labs/Vital Signs - Labs Result Diagrams: 06/16/18 18:35 - Vital Signs Vital Signs: reviewed preoperatively; see RN documention for details Blood Pressure: 111/71 Heart Rate: 82 Respiratory Rate: 18 O2 Sat (%): 2 Height: 187.96 cm Weight: 111.13 kg ANE Physical Exam - Airway Neck exam: FROM Mallampati Score: Class 2 Mouth exam: dentures - Pulmonary Pulmonary: no respiratory distress - Cardiovascular Cardiovascular: regular rate and rhythym - ASA Status ASA Status: III ANE Anesthesia Plan Anesthesia Plan: GA w LMA
[2018-06-16] MEDS ORDERED: DEXAMETHASONE 4 MG/ML VIAL IVP PRN (20:43)
[2018-06-16] MEDS ORDERED: oxyCODONE IR 5 MG TAB PO PRN (20:43)
[2018-06-16] MEDS ORDERED: ALBUTEROL 3 ML DEYVIAL IH PRN (20:43)
[2018-06-16] MEDS ORDERED: NALOXONE HCL 0.4 MG/ML INJ IVP PRN (20:43)
[2018-06-16] MEDS ORDERED: DIAZEPAM 10 MG/2 ML SYR IVP PRN (20:43)
[2018-06-16] MEDS ORDERED: MEPERIDINE 25 MG/0.5 ML AMP IVP PRN (20:43)
[2018-06-16] MEDS ORDERED: LABETALOL HCL 5 MG/ML 20 ML MDV IVP PRN (20:43)
[2018-06-16] MEDS ORDERED: NS 1,000 ML IV SCH (20:45)
[2018-06-16] MEDS ORDERED: VANCOMYCIN 1 GM VIAL ONE (20:48)
[2018-06-16] MEDS ORDERED: ONDANSETRON 4 MG/2 ML VIAL ONE (20:55)
[2018-06-16] MEDS ORDERED: fentaNYL 100 MCG/2 ML INJ ONE ×2 (20:55→22:53)
[2018-06-16] MEDS ORDERED: DEXAMETHASONE 4 MG/ML VIAL ONE (20:55)
[2018-06-16] MEDS ORDERED: LIDOCAINE 2% 100 MG/5 ML SYR ONE (20:55)
[2018-06-16] MEDS ORDERED: PROPOFOL 200 MG/20 ML VIAL ONE (20:56)
[2018-06-16] MEDS ORDERED: LR 1,000 ML IV SCH (21:00)
[2018-06-16] MEDS ORDERED: MIDAZOLAM 2 MG/2 ML VIAL ONE (21:05)
--- NOTE | 2018-06-16 21:07 | CPEKG ---
Test Reason : OPEN Blood Pressure : / mmHG Vent. Rate : 088 BPM Atrial Rate : 089 BPM P-R Int : 148 ms QRS Dur : 072 ms QT Int : 350 ms P-R-T Axes : 036 045 059 degrees QTc Int : 424 ms Sinus rhythm Atrial premature complex Low voltage, extremity and precordial leads Confirmed by Afua Cano ([id number]) on 06/16/2018 9:07:00 PM Referred By: Afua Cano Confirmed By:Afua Cano
[2018-06-16] MEDS: FLUTICASONE/SALMETER 250/50MCG DISKUS IH SCH (21:24)
[2018-06-16] MEDS ORDERED: HYDROmorphONE/DILAUDID 2 MG/ML INJ ONE (21:45)
[2018-06-16] MEDS: fentaNYL 100 MCG/2 ML INJ IVP PRN ×2 (22:55→23:06)
[2018-06-16] MEDS ORDERED: HYDROmorphONE/DILAUDID 1 MG/ML INJ ONE (23:07)
[2018-06-16] MEDS: HYDROmorphONE/DILAUDID 1 MG/ML INJ IVP PRN ×2 (23:11→23:36)
--- NOTE | 2018-06-16 23:45 | GHP ---
[f rep st] HISTORY AND PHYSICAL DATE OF ADMISSION: 06/16/2018 CHIEF COMPLAINT: Left hip redness, swelling and pain. HISTORY OF PRESENT ILLNESS: The patient is a 53-year-old gentleman with a past medical history of le ft below-knee amputation, who was recently in the hospital after having a fall and sustaining a left hip fracture. He underwent surgery to have screw fixation. He was in rehab and over the past 2-3 da ys has noted increase in pain and redness around the left hip area. At that point in time, he was br ought to [facility] for further evaluation. Blood cultures were obtained. He was st arted on empiric vancomycin and Zosyn. Orthopedic Surgery was consulted and plans are being made to take him to the OR to washout his hip. PAST MEDICAL HISTORY: Seizure disorder, atrial fibrillation, hypertension, COPD, gastric bypass, anx iety and depression. PAST SURGICAL HISTORY: Left below-knee amputation, cholecystectomy, left hip surgery recently (done with screw fixation). MEDICATIONS: Albuterol inhaler, clonazepam 1 mg twice a day and 1 mg nightly as needed for insomnia, Advair 250/50 one inhalation twice a day, lisinopril/hydrochlorothiazide 20/12.5 daily, oxycodone IR 5-15 mg 4 times a day as needed, Seroquel 200 mg nightly. ALLERGIES: Gabapentin. FAMILY HISTORY: Unknown. SOCIAL HISTORY: The patient is currently homeless. Has history of tobacco use and alcohol use. SOCIAL HISTORY: CONSTITUTIONAL: Subjective chills have been noted over the prior days. CARDIOVASCU LAR: No chest pains or palpitations. RESPIRATORY: No complaints of shortness of breath or producti ve cough. GI: No nausea or vomiting. : No difficulty with urination. NEUROLOGIC: No complaint s of headaches or focal weakness. HEMATOLOGIC: No history of any deep vein thrombosis or pulmonary embolism. PSYCHIATRIC: Positive for anxiety. ENDOCRINE: No noted history of diabetes. SKIN: Inc reased redness around the left hip area. MUSCULOSKELETAL: Other than left hip pain, no other joint pains. PHYSICAL EXAM: VITAL SIGNS: Temperature 37.1, blood pressure 120/72, heart rate 86, respirations 18 , satting 93% on 1 L. GENERAL: Patient appears comfortable, resting comfortably, nontoxic, awake, a nd conversant. HEENT: Extraocular movements appear intact. No scleral icterus. NECK: Supple. No thyroid enlargement noted. CHEST: Clear to auscultation with normal respiratory effort. HEART: R egular with no murmurs appreciated. ABDOMEN: Soft, nontender, nondistended. : No Wheatley catheter in place. EXTREMITIES: Notable erythema around the left hip region. Bandages appear clean with no malodor or significant bleeding. EXTREMITIES: Compression devices in place. NEUROLOGIC: Cranial nerves 2-12 appear grossly intact with 5/5 upper extremity strength. LABS: White blood cell count 12, hemoglobin 8.8, platelets 242. CRP 204. ASSESSMENT/PLAN: Left hip infection. Blood cultures have been ordered. The patient will be taken t o the OR for washout of his left wound. The patient has been started on Zosyn and vancomycin. Left hip pain. I have continued patient on his home regimen of oral pain medications, including oxyc odone. I have added IV morphine for breakthrough pain. Seizure disorder. I do not see the patient is on seizure medication at this time. This made need co nfirmation by medication reconciliation. Atrial fibrillation. Sounded regular on my exam. Patient is not on any anticoagulation or rate-cont rol agents. ECG performed in the emergency room showed normal sinus rhythm. Hypertension. Lisinopril/hydrochlorothiazide held. Chronic obstructive pulmonary disease. Patient is on Symbicort. This has been continued. Gastric bypass. We will obtain vitamin B12 level with morning labs. Anxiety and depression. Continue with scheduled clonazepam as well as Seroquel nightly. Deep venous thrombosis prophylaxis: Heparin ordered to start tomorrow. Disposition: I recommend inpatient admission, considering the severity of his left hip infection and the need for surgical intervention. /[id number]/MODL
[2018-06-17] MEDS: PIPERACILLIN/TAZO 4.5 GM/DEX 100 ML IV SCH ×3 (01:13→12:30)
[2018-06-17] MEDS: VANCOMYCIN 1.25 GM in NS 250 ML IV SCH ×2 (02:04→10:45)
[2018-06-17] MEDS: clonazePAM 0.5 MG TAB PO SCH ×3 (04:19→21:23)
[2018-06-17] MEDS: QUEtiapine FUMARATE 200 MG TAB PO SCH ×2 (04:21→21:23)
--- NOTE | 2018-06-17 04:55 | GOP ---
[f rep st] OPERATIVE REPORT DATE OF OPERATION: 06/16/2018 SURGEON: Osbaldo Quintana MD ANESTHESIA: General. PREOPERATIVE DIAGNOSIS: Postoperative infection, status post previous compression hip screw fixation of left intertrochanteric hip fracture. POSTOPERATIVE DIAGNOSIS: Postoperative infection, status post previous compression hip screw fixatio n of left intertrochanteric hip fracture. PROCEDURE PERFORMED: Incision, irrigation, drainage, debridement of left hip wound. FINDINGS: DESCRIPTION OF PROCEDURE: The patient taken to the operating room, administered general anesthesia, placed in the right lateral decubitus position. Had his left hip prepped and draped in normal steril e fashion. Incision was made through dermal and subcutaneous tissues. A culture was taken. This wa s sent to the lab for aerobic and anaerobic cultures. Previous Gram stain has shown gram-positive co cci. We went down to the level of the fascia cecilia. This skin and subcutaneous tissue level were the n copiously irrigated with 3000 cc of saline solution with several grams of Ancef solution within eac h 3000 cc bag. This level was then thoroughly scrubbed. We subsequently incised the deeper level. We did not see purulence underneath the iliotibial band. This area was thoroughly irrigated with the normal saline and Ancef solution with another 6000 cc bag. The skin edge was lightly debrided. Irr igation was then again performed. A layered closure was performed with monofilament #2-0 PDS suture in the fascia cecilia, followed by 2-0 interrupted suture in the subcutaneous tissue followed by 3-0 Eth ibond in the dermis. A sterile compression dressing was applied. The patient tolerated the procedur e well, and was transferred back to recovery in stable condition. No operative complications. COMPLICATIONS: None. /[id number]/MODL
[2018-06-17 05:07] LABS: PLATELET COUNT 236 10^3/uL (150-400)
[2018-06-17] MEDS: oxyCODONE IR 5 MG TAB PO PRN ×6 (05:14→21:55)
[2018-06-17] MEDS: FLUTICASONE/SALMETER 250/50MCG DISKUS IH SCH ×2 (08:08→20:36)
--- NOTE | 2018-06-17 09:29 | ASMTLACE ---
MARTHA Acuity / Level of Answers: Yes Care: Did the patient have an inpatient admission? Comorbidities - select Answers: Chronic pulmonary disease all that apply Opioid dependence / Chronic pain Other Notes: HTN; Seizures # of Emergency department Answers: 5-8 visits in the last 6 months Social determinants Answers: History of substance abuse (ETOH, street drugs, prescription drugs, etc.) Homelessness (street, detention) Mental health diagnosis (anxiety, depression, pers onality disorders, etc.) Score: 23 Date Signed: 06/17/2018 09:28 AM Electronically Signed By:Negrita Deleon
[2018-06-17] MEDS: HEPARIN 5,000 UNIT/0.5 ML INJ SC SCH ×3 (09:32→21:50)
[2018-06-17] MEDS: NICOTINE 21 MG/24 HR PATCH TD SCH (11:39)
--- NOTE | 2018-06-17 14:05 | ASMTCMCOM ---
CM Note CM Note Notes: Pt admitted from [facility] rehab where he discharged after [facility] admission in May for left hip fracture and replacement. Pt was to discharge from [facility] on 06/16 when it was discovered his surgical site was red and painful. Pt was admitted to [facility] for sepsis and had an I&D yesterday. Referral sent to [facility] and [facility] is prepared to take pt back when medically stable. PT and OT pending. CM spoke with pt in the room and encouraged him to participate with PT/OT for evaluation purposes. CM to follow. D/C Plan: [facility] SNF Date Signed: 06/17/2018 02:04 PM Electronically Signed By:Letty Rosario
--- NOTE | 2018-06-17 14:37 | PDMN ---
Medical Necessity Medical necessity: Pt meets IP criteria per MD & MCG MG-SIC Systemic or Infectious Condition; est los >2 mn for eval/tx of L hip infection s/p screw fixation; admit for Ortho consult w/surgical invention, cxs, ID consult, IV abx , pain management & therapies; hx L BKA, AFIB, COPD, seizures; per H&P & order
--- NOTE | 2018-06-17 15:38 | HOSPPROG ---
Hospitalist Progress Note Assessment/Plan: 53y male with c/o hip pain. First encounter, chart reviewed. #Hip infection -POD #1 I&D -BC pending -cont IV abx -ID consult #Hx hip fx -recent -cont supportive care #Pain -increase pain meds #SZ -stable -not on meds #Afib -NSR #HTN -stable -no meds currently -follow #COPD -room air #Anxiety/depresion -cont home meds #Dispo -will need to return to rehab when able -cont supportive care -IV abx -ID consult -pain control -D/W CM Subjective: Still having significnat pain. No other issues. Doesn't feel well. Objective: Vital Signs Temp Pulse Resp BP Pulse Ox 36.6 C 74 17 119/65 94 06/17/18 10:58 06/17/18 10:58 06/17/18 10:58 06/17/18 10:58 06/17/18 10:58 Microbiology 06/16/18 22:06 Gram Stain - Final Hip - Eswab Laboratory Results 06/17/18 04:50 06/17/18 04:50 06/16/18 06/17/18 06/18/18 05:59 05:59 05:59 Intake Total 2009 250 Output Total 960 1510 Balance 1050 -1260 - Physical Exam Constitutional: appears nourished, uncomfortable, No obese Eyes: PERRL, anicteric sclera, EOMI Ears, Nose, Mouth, Throat: moist mucous membranes, hearing normal, ears appear normal Cardiovascular: No JVD, No tachycardia, No edema Respiratory: no respiratory distress, no rales or rhonchi, reduced air movement Gastrointestinal: normoactive bowel sounds, No tenderness, No ascites Skin: warm, normal color, No mottled Musculoskeletal: joint tenderness, pain with ROM, generalized weakness Neurologic: AAOx3 Psychiatric: interacting appropriately, not anxious, not encephalopathic ICD10 Worksheet Patient Problems: Problems Problem Status Onset Situational depression Acute Seizure Acute Alcohol withdrawal Acute Alcohol intoxication Acute Reversible airways disease Acute Lactic acidosis Acute Multiple abrasions Acute Neck strain Acute Strain of mid-back Acute COPD (chronic obstructive pulmonary disease) Acute Alcohol abuse Acute Facial laceration Acute Laceration of eyebrow, left Acute Atrial fibrillation with RVR Acute Cold exposure Acute Dehydration Acute Frostbite Acute Cold exposure Acute Back pain Acute Lower extremity cellulitis Acute Frostbite of both great toes Acute Closed left hip fracture Acute Left hip prosthetic joint infection Acute
--- NOTE | 2018-06-17 18:28 | GCON ---
[f rep st] CONSULTATION INFECTIOUS DISEASE CONSULTATION DATE OF CONSULTATION: 06/17/2018 REQUESTING PROVIDER: MADAY Quevedo REASON FOR CONSULTATION: Postoperative left hip infection. 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 Patient describes developing increasing left hip pain, swelling, and redness, with drainage of a purulent material over the last 2-3 days. This was noted while he was in his rehab facility and pr ompted re-evaluation at [facility]. He was noted to have findings of postoperative hip infection and was taken to the operating room for incision and drainage. Intraoperatively, he was n oted to have some necrotic-appearing soft tissues with no evidence of purulence extending deep beneat h the iliotibial band or felt to be affecting his underlying hardware. Gram stain of the purulent roberto walsh was obtained in the emergency department showing gram-positive cocci, and cultures have now sh own growth of MSSA. Operative cultures are currently pending, with Gram stain also showing gram-posi tive cocci. Patient has been treated empirically with vancomycin and piperacillin/tazobactam. Moses nt did note subjective fever and chills without rigors. He did not describe significant night sweats . He has not had nausea, vomiting, or diarrhea. No noted adenopathy in the left inguinal region. H e did have increasing hip discomfort. Given the above findings, infectious disease consultation is n ow requested to assist with his ongoing care. PAST MEDICAL HISTORY: Frostbite of the left lower extremity resulting in [id number] amputation, COPD, seizure disorder, anxiety, chronic back pain, hypertension. PAST SURGICAL HISTORY: Left [id number]-[id number]-hvso amputation, hip fracture repair as above, gastric bypass, lumbar spine fusion, left knee arthroscopy, cholecystectomy. CURRENT MEDICATIONS: Vancomycin 1.25 g IV q.8 hours, Zosyn 4.5 g IV q.6 hours, albuterol inhaler as needed, Klonopin 1 mg as needed q.h.s. for anxiety and 1 mg p.o. twice daily, heparin 5000 units subc u q.8 hours, morphine as needed for pain, NicoDerm CQ 21 mg patch applied daily, Seroquel 200 mg p.o. q.h.s., Advair 1 puff b.i.d. ALLERGIES: Gabapentin associated with seizures. SOCIAL HISTORY: Patient smokes a few cigarettes daily. Notes rare alcohol intake. Denies any drug use history. Recently has been at a rehab facility. FAMILY HISTORY: Lung cancer. REVIEW OF SYSTEMS: Outside that noted in the HPI, the remainder of 10-system review is unremarkable. PHYSICAL EXAMINATION: VITAL SIGNS: Temperature 36.7 with maximum temperature 37.5 at time of admiss ion, heart rate 72, respiratory rate 18, blood pressure 114/69, oxygen saturation 95% on 3 L. GENERA L: Patient is an obese male in no acute distress. He appears nontoxic. HEENT: There is no scleral icterus, conjunctival injection, or conjunctival petechiae. Oropharynx shows moist mucous membranes with no thrush. Patient is edentulous. No nasal discharge. No sinus tenderness. NECK: Supple, w ithout palpable lymphadenopathy or thyromegaly. CHEST: Clear to auscultation bilaterally, without a dventitious sounds. Respiratory effort is normal. CARDIOVASCULAR: Regular rate and rhythm, without murmurs, gallops, or rubs. ABDOMEN: Soft, nontender, nondistended. There is no palpable organomeg priscila. Bowel sounds are present. MUSCULOSKELETAL: The left hip is dressed postoperatively; WESLEY drain is in place with serosanguineous output; there is no erythema surrounding dressing margin; the left B KA stump site is well healed, with mild xerotic skin. NEUROLOGIC: Patient is alert and interacts ap propriately with examiner. Cranial nerves 2-12 are grossly intact. Sensation is grossly intact. LY MPHATICS: No cervical or supraclavicular nodes. No left inguinal nodes palpable or evidence of lymp hangitis. LABORATORY DATA: White blood cell count at time of presentation 12.1, currently 9.5, hematocrit 30.1 , platelets 236, neutrophils 89%, ESR 47. Serum creatinine is 0.7, C-reactive protein 204. Gram sta in of the specimen obtained at presentation showed GPCs with growth of MSSA. Operative specimen also shows GPCs with culture pending. Blood cultures x2 are also pending. IMPRESSION: Postoperative left hip infection due to methicillin-susceptible Staphylococcus aureus: Operative findings reviewed with Dr. Quintana noting that infection did not track deep to fixation hardw are. Given this finding, anticipate short course of intravenous therapy with transition to oral anti biotics to complete course of care with subsequent observation. If were to experience recurrent find ings, then would have additional concern for hardware involvement. Will follow up operative cultures to ensure they also show MSSA, but suspect this will be likely. Will transition from vancomycin and piperacillin/tazobactam to cefazolin based on culture findings. RECOMMENDATIONS: 1. Cefazolin 2 g IV q.8 hours. 2. Discontinue vancomycin and Zosyn. 3. Follow up cultures as available. 4. Follow clinical response to above measures. Thank you for this consultation. We will continue to follow patient with you. /[id number]/MODL
[2018-06-17] MEDS: ceFAZolin 2 GM/DEXTROSE 100 ML IV SCH (21:51)
[2018-06-18] MEDS: oxyCODONE IR 5 MG TAB PO PRN ×3 (04:43→13:37)
[2018-06-18] MEDS: ceFAZolin 2 GM/DEXTROSE 100 ML IV SCH (05:05)
[2018-06-18] MEDS: HEPARIN 5,000 UNIT/0.5 ML INJ SC SCH ×2 (05:05→13:32)
[2018-06-18] MEDS: clonazePAM 0.5 MG TAB PO SCH (07:38)
[2018-06-18] MEDS: NICOTINE 21 MG/24 HR PATCH TD SCH (07:38)
[2018-06-18] MEDS: FLUTICASONE/SALMETER 250/50MCG DISKUS IH SCH (07:39)
[2018-06-18] MEDS ORDERED: MAGNESIUM HYDROXIDE 30 ML UDCUP PO PRN (07:43)
[2018-06-18] MEDS ORDERED: LACTULOSE 20 GM/30 ML UDCUP PO PRN (07:43)
[2018-06-18] MEDS ORDERED: POLYETHYLENE GLYCOL 3350 17 GM PKT PO PRN (07:43)
[2018-06-18] MEDS ORDERED: BISACODYL 10 MG SUPP PR PRN (07:43)
--- NOTE | 2018-06-18 08:36 | SOAPPROG ---
SOAP Progress Note Assessment/Plan: Assessment: Surgical Site Infection, s/p Left Hip ORIF. POD #1 Washout/I&D Left Hip Wound Plan: WBAT with walker/crutches Will continue IV ABX per ID and Hospitalist team. He will convert to oral vs IM ABX while at SNF rehab facility Drain to be pulled today Continue current pain meds as he is tolerating well. May need pain management to see him on an outpatient basis. DISCHARGE: Hopefully today 06/18 to SNF once approved. From an Orthopedic standpoint, OK for discharge once Medicine, ID, and CM agree. Please call with any questions or concerns Gabriel Argueta PA-C (Dr. Quintnaa) [phone] FOLLOWUP in 10-14 days at [facility] clinic for post-op and wound evaluation. 06/18/18 08:33 Subjective: He appears in good spirit this AM. eating breakfast with good appetite and no complaint of pain. Denies fever, chills, CP, SOB or N/V Objective: Vital Signs Temp Pulse Resp BP Pulse Ox 36.5 C 74 18 121/75 H 100 06/18/18 07:19 06/18/18 07:19 06/18/18 07:19 06/18/18 07:19 06/18/18 07:19 Microbiology 06/16/18 22:06 Gram Stain - Final Hip - Eswab Laboratory Results 06/17/18 04:50 06/17/18 04:50 06/17/18 06/18/18 06/19/18 05:59 05:59 05:59 Intake Total 20090 Output Total 960 2615 325 Balance 1050 125 -325 PHYSICAL EXAM LLE Dressing well intact. No drainage. Drain has minimal output. ICD10 Worksheet Patient Problems: Problems Problem Status Onset Left hip prosthetic joint infection Acute Alcohol abuse Acute Alcohol intoxication Acute Alcohol withdrawal Acute Atrial fibrillation with RVR Acute Back pain Acute COPD (chronic obstructive pulmonary disease) Acute Closed left hip fracture Acute Cold exposure Acute Cold exposure Acute Dehydration Acute Facial laceration Acute Frostbite Acute Frostbite of both great toes Acute Laceration of eyebrow, left Acute Lactic acidosis Acute Lower extremity cellulitis Acute Multiple abrasions Acute Neck strain Acute Reversible airways disease Acute Seizure Acute Situational depression Acute Strain of mid-back Acute
[2018-06-18] MEDS ORDERED: SENNOSIDES/DOCUSATE SODIUM TAB PO SCH (09:00)
[2018-06-18 11:06] VITALS: BP 115/68
--- NOTE | 2018-06-18 13:02 | PDIAF ---
- Diagnosis Diagnosis: infection Code Status: Full Code - Medication Management Retirement Antibiotics: doxy 100mg po bid x7 days Discharge Medications: electronically signed and located in the Home Medication List. PICC Care - Routine: N/A - Orders Services needed: Registered Nurse, Physical Therapy, Occupational Therapy Isolation Type: None Diet Recommendation: no restrictions on diet Additional Instructions: ORTHOPEDIC SURGERY DISCHARGE INSTRUCTIONS WBAT with walker/crutches ICE, Elevate as needed for pain swelling Continue medicine prescribed pain Rx and DVT chemoprophylaxis as needed. Keep Dressing clean. Change as needed. Keep incision clean and dry FOLLOWUP Patient to followup in 101-4 days at [facility] for post-op evaluation. Will also need followup with Dr. Arnett, Infectious Disease on an outpatient basis. Please have patient call clinic to confirm followup date/time [phone] - Follow Up Care Current Providers and Referrals: Jonathan Arnett MD [Medical Doctor] - 06/24/18 1:30 pm Patient,NotPresent [Primary Care Provider] - As per Instructions Osbaldo Quintana MD [Medical Doctor] -
--- NOTE | 2018-06-18 13:17 | PCMIDPN ---
Assessment/Plan: Assessment/Plan: * Postoperative left hip infection status post incision and drainage: No residual cellulitis present on exam today. Operative findings reviewed with Dr. Quintana noting no tracking deep to hardware. Will provide dose of ceftriaxone 2 g IV x1 today, then transition to doxycycline 100 mg orally twice daily to complete 7 days of therapy. Discussed with patient that if hardware involvement present, will be at significant risk for recurrent infection. Advised to notify me if he develops fevers, recurrent erythema, worsening pain, or drainage. Side effects of doxycycline discussed with patient including risk of photosensitivity, esophagitis, and need to avoid concomitant calcium intake. Will have patient follow-up with me in the office next week for ongoing assessment. Clinical findings and plan discussed with patient and care coordinated with Celia Silva, ANGELIQUE and nursing staff. 06/18/18 13:14 Subjective: Patient with decreasing left hip pain. Notes no residual redness present. No nausea, vomiting or diarrhea with antibiotic therapy. Objective: Vital Signs Temp Pulse Resp BP Pulse Ox 36.6 C 68 18 115/68 96 06/18/18 11:05 06/18/18 11:05 06/18/18 11:05 06/18/18 11:05 06/18/18 11:05 Microbiology 06/16/18 22:06 Gram Stain - Final Hip - Eswab Laboratory Results 06/17/18 04:50 06/17/18 04:50 06/17/18 06/18/18 06/19/18 05:59 05:59 05:59 Intake Total 20090 Output Total 960 2615 675 Balance 1050 125 -675 ESR 47 MM/HR (0-20) H 06/16/18 18:35 C-Reactive Protein 204.0 mg/L (<10.0) H 06/16/18 18:35 Cefazolin # 2 Wound culture MSSA Operative culture Staphylococcus aureus Blood cultures x2 no growth - Physical Exam General Appearance: alert, no apparent distress EENT: No scleral icterus, No thrush Extremities: inflammation (Left hip incision intact with small amount of serous drainage distally; no residual erythema; residual edema present; no significant tenderness to palpation) Abdomen: non-tender, No distended Lymphatic: other (No lymphangitis in left thigh) ICD10 Worksheet Patient Problems: Problems Problem Status Onset Left hip prosthetic joint infection Acute Alcohol abuse Acute Alcohol intoxication Acute Alcohol withdrawal Acute Atrial fibrillation with RVR Acute Back pain Acute COPD (chronic obstructive pulmonary disease) Acute Closed left hip fracture Acute Cold exposure Acute Cold exposure Acute Dehydration Acute Facial laceration Acute Frostbite Acute Frostbite of both great toes Acute Laceration of eyebrow, left Acute Lactic acidosis Acute Lower extremity cellulitis Acute Multiple abrasions Acute Neck strain Acute Reversible airways disease Acute Seizure Acute Situational depression Acute Strain of mid-back Acute
--- NOTE | 2018-06-18 13:36 | GDS ---
[f rep st] DISCHARGE SUMMARY DISCHARGE DIAGNOSES: 1. Surgical site infection. 2. Recent hip fracture. 3. Pain. 4. History of seizure disorder. 5. History of atrial fibrillation. 6. Hypertension. 7. History of chronic obstructive pulmonary disease. CONSULTATIONS: 1. Orthopedics. 2. Infectious Disease. STUDIES AND PROCEDURES DONE: Washout and I and D of the left hip. PHYSICAL EXAM: GENERAL: The patient is alert. VITAL SIGNS: Afebrile at 36.6, pulse is 68, respiratory rate is 18, blood pressure is 115/68, he saturating 96 % on 3 L. I have seen evaluated the patient on the day of discharge. HOSPITAL COURSE: The patient is a 53-year-old male who presented to the emergency room with complaints of hip pain. He was evaluated and diagnosed with : 1. Left surgical site infection. During this hospitalization, he received surgical intervention with a washout and incision and drainage. Cultures demonstrate Staph aureus infection. He did receive a consultation from Orthopedics, as well as Infectious Disease. It was recommended that the patient be placed on oral doxycycline at the time of disposition. A prescription has been provided for this. 2. Recent hip fracture. This appears to be stable. 3. Pain. His pain is controlled on oral narcotic pain medication. 4. History of seizure disorder, not on medications. 5. History of atrial fibrillation, normal sinus during this hospitalization. 6. Hypertension. Blood pressure stable. 7. Anemia. This is stable in the post surgical timeframe. DISPOSITION: He will be discharged to return to [facility] where he was previously residing for rehabilitation in the setting of hip fracture. PENDING STUDIES: None. DISCHARGE MEDICATIONS: Please refer to EMR form. New medications include: Subcu heparin, doxycycline 100 mg p.o. twice daily for a total of 7 days. I have discussed the patient's disposition with Dr. Jonathan Arnett. He is in agreement with this plan. FOLLOWUP: Followup will be with Dr. Jonathan Arnett as well as Dr. Osbaldo Quintana. TIME SPENT WITH PATIENT: I spent greater than 35 minutes in the care, coordination, and management of patient's disposition. /[id number]/MODL MTDD
--- NOTE | 2018-06-18 14:18 | ASMTDCNOTE ---
Case Management Discharge Discharge Order Complete? 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 Jessica hawkins [facility] notified, RN to call report. Pt given T shirt for transport. Date Signed: 06/18/2018 02:16 PM Electronically Signed By:Rody Meadows RN
--- NOTE | 2018-06-19 09:44 | ASDISCHSUM ---
Discharge Information Plan Status: Medically Cleared to Leave: Discharge Date:06/18/2018 03:32 PM CM D/C Disposition: ADT D/C Disposition:[facility] Projected Discharge Date:06/18/2018 11:00 AM Transportation at D/C: Discharge Delay Reason: Follow-Up Date:06/18/2018 11:00 AM Discharge Slot: Final Diagnosis: Placement Information Referral Type:*Prison/SNF Referral ID:[id number] Provider Name:Lizzy hawkins [place] Address 1:[address] Address 2: City:[place] Selection Factors: State:[place] Patient Contact Information Contact Name:ERNESTOIlan Relationship: Address:[address] City:[place] Alternate Phone: State/Zip Code:[place] [address] Email: Financial Information Financial Class:Medicare Primary Plan Desc:MEDICARE INPATIENT Primary Plan Number:[id number] Secondary Plan Desc: Secondary Plan Number: Assessment Information LACE LACE Acuity / Level of Answers: Yes Care: Did the patient have an inpatient admission? Comorbidities - select Answers: Chronic pulmonary disease all that apply Opioid dependence / Chronic pain Other Notes: HTN; Seizures # of Emergency department Answers: 5-8 visits in the last 6 months Social determinants Answers: History of substance abuse (ETOH, street drugs, prescription drugs, etc.) Homelessness (street, correction) Mental health diagnosis (anxiety, depression, pers onality disorders, etc.) Score: 23 Date Signed: 06/17/2018 09:28 AM Electronically Signed By:Negrita Deleon [facility] CM Progress Note CM Note CM Note Notes: Pt admitted from [facility] rehab where he discharged after [facility] admission in May for left hip fracture and replacement. Pt was to discharge from [facility] on 06/16 when it was discovered his surgical site was red and painful. Pt was admitted to [facility] for sepsis and had an I&D yesterday. Referral sent to [facility] and [facility] is prepared to take pt back when medically stable. PT and OT pending. CM spoke with pt in the room and encouraged him to participate with PT/OT for evaluation purposes. CM to follow. D/C Plan: [facility] Date Signed: 06/17/2018 02:04 PM Electronically Signed By:Letty Rosario Case Management Discharge Plan Note Case Management Discharge Discharge Order Complete? 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 Jessica at [facility] notified, RN to call report. Pt given T shirt for transport. Date Signed: 06/18/2018 02:16 PM Electronically Signed By:Rody Meadows RN Intervention Information
== END 2018-06-18 15:32 | DRG 858 ==
LOC: F3N 19:46
PROVIDERS: ADMIT Internal Medicine; ATTEND Internal Medicine
DX: T81.41XA Infection following a procedure, superficial incisional surgical site, initial encounter (principal); B95.61 Methicillin susceptible Staphylococcus aureus infection as the cause of diseases classified elsewhere; G40.909 Epilepsy, unspecified, not intractable, without status epilepticus; I48.91 Unspecified atrial fibrillation; I10 Essential (primary) hypertension; J44.9 Chronic obstructive pulmonary disease, unspecified; D64.9 Anemia, unspecified; F32.9 Major depressive disorder, single episode, unspecified; F41.9 Anxiety disorder, unspecified; Z72.0 Tobacco use; Z89.512 Acquired absence of left leg below knee; Z59.0 Homelessness; Z98.84 Bariatric surgery status
CPT/HCPCS: 82607-90; 96374; 97161-GP; 97166-GO; J0690; J0696; J1100; J1170; J1644; J2001; J2060; J2250; J2270; J2405; J2543; J2704; J3010; J3370

== ENCOUNTER 2018-07-13 00:34 | Emergency (ER) | payer OTHER | END 2018-07-13 05:09 | disposition home or self-care (01) ==

== ENCOUNTER 2018-07-13 06:33 | Emergency (ER) | payer OTHER | END 2018-07-13 07:51 | disposition home or self-care (01) ==

== ENCOUNTER 2018-07-14 21:18 | Emergency (ER) | payer OTHER | END 2018-07-14 23:27 | disposition home or self-care (01) ==

== ENCOUNTER 2018-07-15 13:16 | Emergency (ER) | payer OTHER | END 2018-07-15 16:26 | disposition home or self-care (01) ==

== ENCOUNTER 2018-07-15 20:19 | Emergency (ER) | payer OTHER | END 2018-07-16 05:13 | disposition home or self-care (01) ==

== ENCOUNTER 2018-07-19 15:57 | Inpatient (IN) | payer OTHER | END 2018-07-20 11:02 | disposition home or self-care (01) | LOC: F2N 19:06 ==

== ENCOUNTER 2018-07-20 11:59 | Emergency (ER) | payer OTHER | END 2018-07-20 15:37 | disposition left against medical advice (07) ==

== ENCOUNTER 2018-07-20 19:36 | Emergency (ER) | payer OTHER | END 2018-07-20 23:51 | disposition home or self-care (01) ==

== ENCOUNTER 2018-07-24 19:23 | Emergency (ER) | payer OTHER | END 2018-07-25 02:51 | disposition home or self-care (01) ==

== ENCOUNTER 2018-07-25 15:51 | Emergency (ER) | payer OTHER | END 2018-07-25 23:00 | disposition home or self-care (01) ==

== ENCOUNTER 2018-07-26 11:35 | Emergency (ER) | payer OTHER | END 2018-07-26 16:13 | disposition home or self-care (01) ==

== ENCOUNTER 2018-07-26 19:14 | Emergency (ER) | payer OTHER | END 2018-07-26 23:00 | disposition home or self-care (01) ==

== ENCOUNTER 2018-07-27 18:56 | Inpatient (IN) | payer OTHER | END 2018-08-01 12:02 | LOC: F3E 07-28 07:29 ==